=== PATIENT | male | born 1955 | race Caucasian/White ===

== ENCOUNTER 2017-06-25 00:08 | Inpatient (IN) ==
[2017-06-25] MEDS ORDERED: Ipratropium/Albuterol Neb 3 ML ONE (00:14)
[2017-06-25] MEDS ORDERED: Ipratropium/Albuterol Neb 3 ML IH ONE (00:15)
[2017-06-25] MEDS ORDERED: methylPREDNISolone 125 MG/2 ML VIAL IVP ONE (00:25)
--- NOTE | 2017-06-25 00:26 | Emergency Department Note ---
Disposition Clinical Impression: Acute exacerbation of chronic obstructive airways disease, HCAP (healthcare- associated pneumonia) Disposition: Admitted As Inpatient Condition: Fair Time of Disposition: 03:19 SOB HPI - General Chief Complaint: ED Shortness of Breath/Dyspnea Stated Complaint: Branden AMS Time Seen by Provider: 06/25/17 00:13 Source: patient, EMS Mode of arrival: EMS Limitations: altered mental status Nursing Notes Reviewed: Yes Vital Signs Reviewed: Yes - History of Present Illness 61-year-old male presents to the emergency department via EMS for difficulty in breathing and low oxygen saturations. Patient does have history of COPD he does have oxygen at home and he is chronically on. Family states that over the last 2 days he has had a difficult more difficult time breathing. He was recently discharged from the hospital approximately 2-3 weeks ago where he was in the ICU and on a ventilator due to a COPD exacerbation. He does have history of having an elevated CO2. They are unsure if he does have a CPAP machine at home. Patient has had a more difficult time breathing so his oxygen saturation saturations were down to 60%. EMS placed him on 15 L via nonrebreather and sats went up to 90% with that. But he was still having a difficult time breathing. They did give patient 100 mL of IV fluids and did not give him anything else. They have not noted any fevers or chills leading up to this or any other symptoms. He said he has no more altered lately where he is not as awake and alert as he normally is. He is able to follow commands. Patient otherwise having no complaints including no headaches, nausea, vomiting,, chills, chest pain, abdominal pain, pain with urination, change in bowel movement, pain or tingling going down the arms or legs or any generalized weakness. - Related Data Allergies Allergy/AdvReac Type Severity Reaction Status Date / Time No Known Allergies Allergy Verified 06/25/17 00:44 Review of Systems: 10 point review of systems done and negative unless otherwise stated in the history of present illness. All systems ED: reviewed and negative except as stated. Review of Systems: As Per HPI Past Medical History - Past Medical History Attestation: Yes The following information was validated with the patient. Source: patient Medical history: Reports: other - Social History Smoking Status: Current every day smoker Smokeless Tobacco Status: No Physical Exam - General Limitations: no limitations General appearance: alert, in no apparent distress - Head Head exam: atraumatic, normocephalic, normal inspection - Eye Eye exam: Present: normal appearance, PERRL, EOMI - ENT ENT exam: normal exam, normal oropharynx, mucous membranes moist - Neck Neck exam: Present: normal inspection, full ROM, trachea midline - Chest Chest inspection: Present: normal inspection, symmetric chest wall rise - Respiratory Respiratory exam: Present: respiratory distress (Mild), wheezes (Bilaterally more noticeable in the bases.), accessory muscle use, prolonged expiratory phase - Cardiovascular Cardiovascular exam: Present: regular rate, normal rhythm, normal heart sounds - Abdominal Exam Abdominal exam: Present: soft, Non-Tender. Absent: tenderness, distention, guarding, rebound, rigidity - Extremities Exam Extremities exam: Present: normal inspection, full ROM. Absent: tenderness, pedal edema - Expanded Lower Extremity Exam Neurovascular/Tendon exam: Present: normal capillary refill. Absent: pulse deficit, motor deficit, sensory deficit, tendon deficit - Back Exam Back exam: Present: normal inspection, full ROM. Absent: tenderness - Neurological Exam Neurological exam: Present: alert. Absent: oriented X3 (Patient unable to answer questions due to change in mental status but is able to follow commands.) , motor sensory deficit - Expanded Neurological Exam Coma Scale Eye Opening: Spontaneous Coma Scale Motor Response: Obeys Commands Coma Scale Verbal Response: Inappropriate Coma Scale Total: 13 - Skin Skin exam: Present: warm, dry, intact, normal color Course Course Narrative: 61-year-old male presents to the emergency department in respiratory distress he does have COPD history. We will immediately place patient on BiPAP. We will do normal sepsis workup including CBC, CMP, mag, phosphate, urinalysis with Deras catheter placed due to patient's altered mental status, CT head, chest x-ray, 2 sets of blood cultures, lactate, ABG. Will hold off and getting IV fluids at this time due to the unknown circumstance for his difficult in breathing at this might be due to fluid overload. We will also give patient site Medrol and triple DuoNeb treatment. Disposition most likely is going to be admission. Vital Signs Temperature 98.6 F 06/25/17 00:11 Pulse Rate 111 06/25/17 00:11 Respiratory Rate 26 06/25/17 00:11 Blood Pressure 107/60 06/25/17 00:11 O2 Sat by Pulse Oximetry 99 06/25/17 00:11 Temperature 99.1 F 06/25/17 00:36 Pulse Rate 83 06/25/17 03:22 Respiratory Rate 16 06/25/17 03:22 Blood Pressure 92/61 06/25/17 03:22 O2 Sat by Pulse Oximetry 93 06/25/17 03:22 Oxygen Delivery Oxygen Delivery Bipap Shortness of Breath/Dyspnea - MDM Narrative Medical decision making narrative: 61-year-old male presenting to the emergency departmentin respiratory distress. We did immediately place patient on a BiPAP machine. ABGs were ordered and he did have elevated CO2 and was acidotic. Due to this we continued patient to be on BiPAP we did talk about having patient intubated without that we are given a trial of BiPAP as long as his CO2 was normalizing we will continue with BiPAP. Patient was given Solu-Medrol he was recently admitted to the hospital chest x-ray showed possible pneumonia so we started him on age Giving Levaquin, Zosyn, vancomycin. We did do a BNP which it was slightly elevated but not quite his normal other thousand where was at 250 we decided not to treat this at this time. We did not give him IV fluids as patient does not history CHF we do not want to fluid overload him. Patient did have elevated potassium of 6.3 he had no EKG changes. We did give patient 40 mg IV Lasix did give him albuterol. Through duo nebs that also help lower the potassium. Also gave patient calcium gluconate to help stabilize the cardiac membrane. he patient first came in he had a hard time following commands. He did do much better after being on the BiPAP and the CO2 has been lowering. We felt that intubation was 90 at this time and he prior stands long time on BiPAP. I spoke with the hospitalist Dr. Kimball who agreed to accept the patient to the ICU. Patient is admitted in fair condition at this time. Chest X-Ray 06/25/17 00:14 IMPRESSION: Patchy airspace disease in the lower lungs bilaterally, with increased central opacity. Correlate with any clinical evidence of pulmonary edema. Multifocal pneumonia would be considered as well. D/ / Saqib Rajan MD / Saqib Rajan MD Interpreting Provider: Saqib Rajan MD Head CT 06/25/17 00:28 IMPRESSION: No acute intracranial abnormality. D/ / William Tate MD / William Tate MD Interpreting Provider: William Tate MD - Medical Records Medical records reviewed: Yes I reviewed the patient's medical records. - Lab Data Lab results reviewed: Yes I reviewed the patient's lab results. Result diagrams: 06/25/17 00:15 06/25/17 01:30 Lab Results 06/25/17 06/25/17 06/25/17 Range/Units 00:15 00:15 00:15 WBC 14.8 H (4.3-11.1) K/mcL RBC 4.63 (4.19-5.50) M/mcL Hgb 13.4 (12.9-16.9) g/dL Hct 42.4 (37.5-50.1) % MCV 91.6 (83.0-100.0) fL MCH 28.9 (28.0-33.3) pg MCHC 31.6 (31.6-35.5) g/dL RDW 15.9 H (11.5-14.5) % Plt Count 175 (140-400) K/mcL MPV 12.2 (9.4-12.4) fL Immature Gran % 1.4 (0-4) % Seg Neutrophils % 74.6 % Lymphocytes % 13.0 % Monocytes % 5.7 % Eosinophils % 4.3 % Basophils % 1.0 % Neutrophils # 11.0 H (1.6-8.9) K/mcL Lymphocytes # 1.9 (0.6-4.6) K/mcL Monocytes # 0.8 (0.0-1.3) K/mcL Eosinophils # 0.6 (0.0-0.6) K/mcL Basophils # 0.2 (0.0-0.2) K/mcL Nucleated RBCs/100 WBC 0.1 H (0) /100 WBC PT 10.6 (9.4-12.1) Seconds INR 1.0 APTT 32.4 (26.0-36.0) Seconds Sample Site ABG pH (7.32-7.45) pH Units ABG pCO2 (35-45) mmHg ABG pO2 (85-104) mmHg ABG HCO3 (21-27) mEq/L ABG Total CO2 (20-26) mEq/L ABG O2 Saturation (95-98) % ABG Base Excess (-2 to 3) mEq/L Maycol Test Respiration Rate O2 Delivery Device Inspired O2 (1-15=lpm [id number]=%) Tidal Volume cc Sodium 134 L (136-145) mEq/L Potassium 6.1 H (3.5-5.1) mEq/L Chloride 99 (98-107) mEq/L Carbon Dioxide 31 H (23-29) mEq/L BUN 24 H (8-23) mg/dL Creatinine 1.11 (0.70-1.30) mg/dL Est GFR ( Amer) > 60 (> 60) Est GFR (Non-Af Amer) > 60 (> 60) BUN/Creatinine Ratio 22 (6-26) Glucose 184 H (70-105) mg/dL Calculated Osmolality 287 (280-300) Lactic Acid (0.5-2.2) mmol/L Calcium 8.7 (8.6-10.3) mg/dL Phosphorus 4.7 H (2.7-4.5) mg/dL Magnesium 1.9 (1.6-2.6) mg/dL Total Bilirubin 0.4 (0.3-1.0) mg/dL Direct Bilirubin 0.2 (0.0-0.2) mg/dL Indirect Bilirubin 0.2 (0.0-1.2) mg/dL AST 18 (13-39) Units/L ALT 13 (7-52) Units/L Alkaline Phosphatase 94 (34-104) Units/L Troponin I 0.03 (< 0.04) ng/mL B-Natriuretic Peptide (Less than 100) pg/mL Serum Total Protein 6.7 (6.4-8.9) g/dL Albumin 3.6 (3.5-5.7) g/dL Globulin 3.1 (2.4-3.5) g/dL Albumin/Globulin Ratio 1.2 (1.1-2.2) Urine Color (Yellow) Urine Clarity (Clear) Urine pH (5.0-8.0) pH Units Ur Specific [place] (1.010-1.025) Urine Protein (Neg-Trace) mg/dL Urine Glucose (UA) (Normal) mg/dL Urine Ketones (Negative) mg/dL Urine Blood (Negative) Urine Nitrite (Negative) Urine Bilirubin (Negative) Urine Urobilinogen (Normal) mg/dL Ur Leukocyte Esterase (Negative) Urine Microscopic RBC (0-3) per hpf Urine Microscopic WBC (0-3) per hpf Ur Squamous Epith Cells (None-Few) per lpf Urine Bacteria (None-Few) per hpf Hyaline Casts (None-Few) per lpf Ur Culture Indicated? (NO) 06/25/17 06/25/17 06/25/17 Range/Units 00:15 00:32 00:41 WBC (4.3-11.1) K/mcL RBC (4.19-5.50) M/mcL Hgb (12.9-16.9) g/dL Hct (37.5-50.1) % MCV (83.0-100.0) fL MCH (28.0-33.3) pg MCHC (31.6-35.5) g/dL RDW (11.5-14.5) % Plt Count (140-400) K/mcL MPV (9.4-12.4) fL Immature Gran % (0-4) % Seg Neutrophils % % Lymphocytes % % Monocytes % % Eosinophils % % Basophils % % Neutrophils # (1.6-8.9) K/mcL Lymphocytes # (0.6-4.6) K/mcL Monocytes # (0.0-1.3) K/mcL Eosinophils # (0.0-0.6) K/mcL Basophils # (0.0-0.2) K/mcL Nucleated RBCs/100 WBC (0) /100 WBC PT (9.4-12.1) Seconds INR APTT (26.0-36.0) Seconds Sample Site L Radial ABG pH 7.19 L* (7.32-7.45) pH Units ABG pCO2 99 H* (35-45) mmHg ABG pO2 408 H (85-104) mmHg ABG HCO3 37 H (21-27) mEq/L ABG Total CO2 40 H (20-26) mEq/L ABG O2 Saturation 100 H (95-98) % ABG Base Excess 5 H (-2 to 3) mEq/L Maycol Test N/A Respiration Rate O2 Delivery Device BiPAP Inspired O2 100.0 (1-15=lpm [id number]=%) Tidal Volume cc Sodium (136-145) mEq/L Potassium (3.5-5.1) mEq/L Chloride (98-107) mEq/L Carbon Dioxide (23-29) mEq/L BUN (8-23) mg/dL Creatinine (0.70-1.30) mg/dL Est GFR ( Amer) (> 60) Est GFR (Non-Af Amer) (> 60) BUN/Creatinine Ratio (6-26) Glucose (70-105) mg/dL Calculated Osmolality (280-300) Lactic Acid 1.2 (0.5-2.2) mmol/L Calcium (8.6-10.3) mg/dL Phosphorus (2.7-4.5) mg/dL Magnesium (1.6-2.6) mg/dL Total Bilirubin (0.3-1.0) mg/dL Direct Bilirubin (0.0-0.2) mg/dL Indirect Bilirubin (0.0-1.2) mg/dL AST (13-39) Units/L ALT (7-52) Units/L Alkaline Phosphatase (34-104) Units/L Troponin I (< 0.04) ng/mL B-Natriuretic Peptide (Less than 100) pg/mL Serum Total Protein (6.4-8.9) g/dL Albumin (3.5-5.7) g/dL Globulin (2.4-3.5) g/dL Albumin/Globulin Ratio (1.1-2.2) Urine Color Yellow (Yellow) Urine Clarity Clear (Clear) Urine pH 6.0 (5.0-8.0) pH Units Ur Specific [place] 1.024 (1.010-1.025) Urine Protein Trace (Neg-Trace) mg/dL Urine Glucose (UA) Normal (Normal) mg/dL Urine Ketones Negative (Negative) mg/dL Urine Blood Negative (Negative) Urine Nitrite Negative (Negative) Urine Bilirubin Negative (Negative) Urine Urobilinogen Normal (Normal) mg/dL Ur Leukocyte Esterase Negative (Negative) Urine Microscopic RBC 0-3 (0-3) per hpf Urine Microscopic WBC 0-3 (0-3) per hpf Ur Squamous Epith Cells Few (None-Few) per lpf Urine Bacteria None Seen (None-Few) per hpf Hyaline Casts None Seen (None-Few) per lpf Ur Culture Indicated? NO (NO) 06/25/17 06/25/17 06/25/17 Range/Units 01:13 01:26 01:30 WBC (4.3-11.1) K/mcL RBC (4.19-5.50) M/mcL Hgb (12.9-16.9) g/dL Hct (37.5-50.1) % MCV (83.0-100.0) fL MCH (28.0-33.3) pg MCHC (31.6-35.5) g/dL RDW (11.5-14.5) % Plt Count (140-400) K/mcL MPV (9.4-12.4) fL Immature Gran % (0-4) % Seg Neutrophils % % Lymphocytes % % Monocytes % % Eosinophils % % Basophils % % Neutrophils # (1.6-8.9) K/mcL Lymphocytes # (0.6-4.6) K/mcL Monocytes # (0.0-1.3) K/mcL Eosinophils # (0.0-0.6) K/mcL Basophils # (0.0-0.2) K/mcL Nucleated RBCs/100 WBC (0) /100 WBC PT (9.4-12.1) Seconds INR APTT (26.0-36.0) Seconds Sample Site L Radial ABG pH 7.20 L* (7.32-7.45) pH Units ABG pCO2 94 H* (35-45) mmHg ABG pO2 116 H D (85-104) mmHg ABG HCO3 37 H (21-27) mEq/L ABG Total CO2 39 H (20-26) mEq/L ABG O2 Saturation 97 (95-98) % ABG Base Excess 5 H (-2 to 3) mEq/L Maycol Test N/A Respiration Rate O2 Delivery Device BiPAP Inspired O2 60.0 (1-15=lpm [id number]=%) Tidal Volume cc Sodium (136-145) mEq/L Potassium 6.3 H (3.5-5.1) mEq/L Chloride (98-107) mEq/L Carbon Dioxide (23-29) mEq/L BUN (8-23) mg/dL Creatinine (0.70-1.30) mg/dL Est GFR ( Amer) (> 60) Est GFR (Non-Af Amer) (> 60) BUN/Creatinine Ratio (6-26) Glucose (70-105) mg/dL Calculated Osmolality (280-300) Lactic Acid (0.5-2.2) mmol/L Calcium (8.6-10.3) mg/dL Phosphorus (2.7-4.5) mg/dL Magnesium (1.6-2.6) mg/dL Total Bilirubin (0.3-1.0) mg/dL Direct Bilirubin (0.0-0.2) mg/dL Indirect Bilirubin (0.0-1.2) mg/dL AST (13-39) Units/L ALT (7-52) Units/L Alkaline Phosphatase (34-104) Units/L Troponin I (< 0.04) ng/mL B-Natriuretic Peptide 258 H (Less than 100) pg/mL Serum Total Protein (6.4-8.9) g/dL Albumin (3.5-5.7) g/dL Globulin (2.4-3.5) g/dL Albumin/Globulin Ratio (1.1-2.2) Urine Color (Yellow) Urine Clarity (Clear) Urine pH (5.0-8.0) pH Units Ur Specific [place] (1.010-1.025) Urine Protein (Neg-Trace) mg/dL Urine Glucose (UA) (Normal) mg/dL Urine Ketones (Negative) mg/dL Urine Blood (Negative) Urine Nitrite (Negative) Urine Bilirubin (Negative) Urine Urobilinogen (Normal) mg/dL Ur Leukocyte Esterase (Negative) Urine Microscopic RBC (0-3) per hpf Urine Microscopic WBC (0-3) per hpf Ur Squamous Epith Cells (None-Few) per lpf Urine Bacteria (None-Few) per hpf Hyaline Casts (None-Few) per lpf Ur Culture Indicated? (NO) 06/25/17 Range/Units 02:40 WBC (4.3-11.1) K/mcL RBC (4.19-5.50) M/mcL Hgb (12.9-16.9) g/dL Hct (37.5-50.1) % MCV (83.0-100.0) fL MCH (28.0-33.3) pg MCHC (31.6-35.5) g/dL RDW (11.5-14.5) % Plt Count (140-400) K/mcL MPV (9.4-12.4) fL Immature Gran % (0-4) % Seg Neutrophils % % Lymphocytes % % Monocytes % % Eosinophils % % Basophils % % Neutrophils # (1.6-8.9) K/mcL Lymphocytes # (0.6-4.6) K/mcL Monocytes # (0.0-1.3) K/mcL Eosinophils # (0.0-0.6) K/mcL Basophils # (0.0-0.2) K/mcL Nucleated RBCs/100 WBC (0) /100 WBC PT (9.4-12.1) Seconds INR APTT (26.0-36.0) Seconds Sample Site L Radial ABG pH 7.21 L (7.32-7.45) pH Units ABG pCO2 86 H* (35-45) mmHg ABG pO2 67 L D (85-104) mmHg ABG HCO3 34 H (21-27) mEq/L ABG Total CO2 37 H (20-26) mEq/L ABG O2 Saturation 87 L (95-98) % ABG Base Excess 3 (-2 to 3) mEq/L Maycol Test N/A Respiration Rate 20 O2 Delivery Device BiPAP Inspired O2 35.0 (1-15=lpm [id number]=%) Tidal Volume 600 cc Sodium (136-145) mEq/L Potassium (3.5-5.1) mEq/L Chloride (98-107) mEq/L Carbon Dioxide (23-29) mEq/L BUN (8-23) mg/dL Creatinine (0.70-1.30) mg/dL Est GFR ( Amer) (> 60) Est GFR (Non-Af Amer) (> 60) BUN/Creatinine Ratio (6-26) Glucose (70-105) mg/dL Calculated Osmolality (280-300) Lactic Acid (0.5-2.2) mmol/L Calcium (8.6-10.3) mg/dL Phosphorus (2.7-4.5) mg/dL Magnesium (1.6-2.6) mg/dL Total Bilirubin (0.3-1.0) mg/dL Direct Bilirubin (0.0-0.2) mg/dL Indirect Bilirubin (0.0-1.2) mg/dL AST (13-39) Units/L ALT (7-52) Units/L Alkaline Phosphatase (34-104) Units/L Troponin I (< 0.04) ng/mL B-Natriuretic Peptide (Less than 100) pg/mL Serum Total Protein (6.4-8.9) g/dL Albumin (3.5-5.7) g/dL Globulin (2.4-3.5) g/dL Albumin/Globulin Ratio (1.1-2.2) Urine Color (Yellow) Urine Clarity (Clear) Urine pH (5.0-8.0) pH Units Ur Specific [place] (1.010-1.025) Urine Protein (Neg-Trace) mg/dL Urine Glucose (UA) (Normal) mg/dL Urine Ketones (Negative) mg/dL Urine Blood (Negative) Urine Nitrite (Negative) Urine Bilirubin (Negative) Urine Urobilinogen (Normal) mg/dL Ur Leukocyte Esterase (Negative) Urine Microscopic RBC (0-3) per hpf Urine Microscopic WBC (0-3) per hpf Ur Squamous Epith Cells (None-Few) per lpf Urine Bacteria (None-Few) per hpf Hyaline Casts (None-Few) per lpf Ur Culture Indicated? (NO) - Radiology Data Radiology results reviewed: Yes I reviewed the patient's radiology results. - EKG Data EKG attestation: Yes I reviewed and interpreted this EKG. EKG results narrative: EKG done at 00 27 reviewed by myself and attending shows sinus rhythm at a rate of 97, NE interval 175, QRS 102, QTC 395 with a normal axis. No acute ST changes no acute T-wave changes no other signs of ischemia. No signs of hypertrophy, heart strain, heart block. No signs of WPW/syndrome. EKG unchanged when compared with old one done 04/27/17 Critical Care Time Critical Care Time: Yes Total Critical Care Time: 45 Attestation: Critical care performed: Time is exclusive of separately billable procedures. Time includes: direct patient care, patient reassessment, coordination of patient care, interpretation of data (laboratory data, radiology data, and respiratory data), review of patient's medical records, medical consultation and documentation of patient care. Procedures included in critical care time: Procedures excluded from critical care time: Attestation Statement - Attestation Attestation: I, Saul Virgen DO, examined this patient [id number] and my medical decision-making was reviewed with Dr. Aron Villalobos, Resident Physician. I agree with the documented findings, disposition and treatment plan as described except to the extent set forth below. Please see my progress notes for details. 61-year-old male presents to the emergency room by EMS for evaluation. Patient was found at home to be confused and altered. Patient was just discharged from the hospital less than 2 weeks ago for similar issues. Patient was admitted for hypoxia. On presentation, EMS found the patient's pulse ox to be 60% on his oxygen supplementation at home. Patient was significantly confused. Follow commands. No visible signs of trauma or injury were noted. EMS. Patient placed on nonrebreather and his pulse ox did come back up to 92%. Patient arrived to the emergency room with nonrebreather mask in place. On physical exam patient does have diminished breast sounds with tightness noted bilaterally. Mucosa is patent. Mucous membranes are dry from what appears to be mouth breathing. Heart is regular but tachycardic. Abdomen is soft nontender nondistended with no guarding no rigidity on initial palpation of the abdomen. Mild pitting edema noted bilaterally. Patient does follow commands and moves his extremities appropriately. Patient is concerning for hypercapnic respiratory failure at this point. BiPAP was applied. Initial ABG showed respiratory acidemia with CO2 retention. BiPAP will be applied and continuation of treatment will be established. CT imaging of the head chest x- ray EKG labs including troponin and BNP electrolytes will be added on a resulted. Urinalysis will be collected looking for any other etiology causing the presenting symptoms. After acquired pneumonia will be treated if necessary based on chest x-ray. Patient otherwise clinically stable at this point despite having confusion most likely secondary to hypoxia and CO2 retention. Disposition will most likely be admission. 45 minutes of critical care will be applied to this patient's treatment course. See detailed documentation of physical exam, medical intervention, medical decision-making, disposition in the resident physician's note. 0245 Patient found to have a potassium of 6.3 on repeat here in the emergency room. Patient's ventilation status is slowly resolving. He is waking up and following commands more appropriately at this point. CT of the head chest x- ray were reviewed in detail patient is found to have pneumonia. Patient was treated for healthcare acquired pneumonia. Patient will have medical intervention provider for elevated potassium. His EKG is completely normal this time and no signs of interval abnormality or peaked T waves. Patient will be provided with calcium, Lasix to help diurese the potassium. Patient will not be given Kayexalate at this point secondary to concern for aspiration because of his mental status. Albuterol as IV given for treatment. Patient does not require insulin and dextrose considering is a stable presentation a normal EKG. Disposition will be admission to the hospital patient treatment course. Patient is otherwise clinically stable. Will continue to monitor admission process is established. Patient is having clinical resolution of what appears to be a hypercapnic respiratory related issue. 0345 Patient is otherwise clinically stable. Mentation is slowly getting better. ABGs are correcting with small amounts of interval changes over 2-1/2 our time frame in the emergency department. Repeat potassium was ordered prior the patient going up to the floor. If the potassium does not have some clinical resolution insulin and dextrose will be ordered. Patient may need intubation during this treatment course in the hospital but at this point we tried to prevent prolonged ventilator requirements by use positive pressure ventilation here in the emergency room. Patient is otherwise clinically stable despite having potential for critical illness.
[2017-06-25 00:29] LABS: Basophils # 0.2 K/mcL (0.0-0.2); Eosinophils # 0.6 K/mcL (0.0-0.6); Eosinophils % 4.3 %; Hematocrit 42.4 % (37.5-50.1); Hemoglobin 13.4 g/dL (12.9-16.9); Immature Granulocytes % 1.4 % (0-4); Lymphocytes # 1.9 K/mcL (0.6-4.6); Mean Corpuscular HGB Conc 31.6 g/dL (31.6-35.5); Mean Corpuscular Hemoglobin 28.9 pg (28.0-33.3); Mean Corpuscular Volume 91.6 fL (83.0-100.0); Mean Platelet Volume 12.2 fL (9.4-12.4); Monocytes # 0.8 K/mcL (0.0-1.3); Monocytes % 5.7 %; Nucleated Red Blood Cells 0.1 /100 WBC (0); Platelet Count 175 K/mcL (140-400); Red Blood Count 4.63 M/mcL (4.19-5.50); Red Cell Distribution Width 15.9 % (11.5-14.5); Segmented Neutrophils % 74.6 %
[2017-06-25 00:36] LABS: Prothrombin Time 10.6 Seconds (9.4-12.1)
[2017-06-25 00:37] LABS: ABG Base Excess 5 mEq/L (-2 to 3); ABG HCO3 37 mEq/L (21-27); ABG Oxygen Saturation 100 % (95-98); ABG PCO2 99 mmHg (35-45); ABG PH 7.19 pH Units (7.32-7.45); ABG PO2 408 mmHg (85-104); ABG TCO2 40 mEq/L (20-26)
[2017-06-25 00:39] LABS: Activated Partial Thrombo Time 32.4 Seconds (26.0-36.0)
[2017-06-25 00:50] LABS: Alanine Aminotransferase 13 Units/L (7-52); Albumin 3.6 g/dL (3.5-5.7); Albumin/Globulin Ratio 1.2 (1.1-2.2); Alkaline Phosphatase 94 Units/L (34-104); Aspartate Amino Transferase 18 Units/L (13-39); BUN/Creatinine Ratio 22 (6-26); Bilirubin,Direct 0.2 mg/dL (0.0-0.2); Bilirubin,Indirect 0.2 mg/dL (0.0-1.2); Bilirubin,Total 0.4 mg/dL (0.3-1.0); Blood Urea Nitrogen 24 mg/dL (8-23); Calcium 8.7 mg/dL (8.6-10.3); Carbon Dioxide 31 mEq/L (23-29); Chloride 99 mEq/L (98-107); Globulin 3.1 g/dL (2.4-3.5); Glucose 184 mg/dL (70-105); Magnesium 1.9 mg/dL (1.6-2.6); Osmolality,Calculated 287 (280-300); Phosphorous 4.7 mg/dL (2.7-4.5); Potassium 6.1 mEq/L (3.5-5.1); Sodium 134 mEq/L (136-145); Total Protein 6.7 g/dL (6.4-8.9); Troponin I 0.03 ng/mL (< 0.04); eGFR For African Americans > 60 (> 60); eGFR For Non-African Americans > 60 (> 60)
[2017-06-25 00:55] LABS: Bilirubin,Urine Negative (Negative); Blood,Urine Negative (Negative); Clarity,Urine Clear (Clear); Color,Urine Yellow (Yellow); Glucose,Urine (UA) Normal (Normal); Ketones,Urine Negative (Negative); Leukocyte Esterase,Urine Negative (Negative); Nitrite,Urine Negative (Negative); Protein,Urine Trace mg/dL (Neg-Trace); Specific Gravity,Urine 1.024 (1.010-1.025); Urobilinogen,Urine Normal (Normal)
[2017-06-25 00:58] LABS: Bacteria,Urine None Seen per hpf (None-Few); Hyaline Casts,Urine None Seen per lpf (None-Few); RBC,Urine 0-3 per hpf (0-3); Squamous Epithelial Cell,Urine Few per lpf (None-Few); WBC,Urine 0-3 per hpf (0-3)
[2017-06-25] MEDS ORDERED: Levofloxacin 750 MG/150 ML 750 MG/150 ML BAG IVPB ONE (01:09)
[2017-06-25] MEDS ORDERED: Piperacillin/Tazobactam 3.375 GM in 0.9 % Sodium Chloride Mini Bag 100 ML IVPB ONE (01:09)
[2017-06-25 01:43] LABS: ABG Base Excess 5 mEq/L (-2 to 3); ABG HCO3 37 mEq/L (21-27); ABG Oxygen Saturation 97 % (95-98); ABG PCO2 94 mmHg (35-45); ABG PO2 116 mmHg (85-104); ABG TCO2 39 mEq/L (20-26)
[2017-06-25] MEDS ORDERED: Furosemide 40 MG/4 ML VIAL IVP ONE (02:51)
[2017-06-25 02:54] LABS: ABG Base Excess 3 mEq/L (-2 to 3); ABG HCO3 34 mEq/L (21-27); ABG Oxygen Saturation 87 % (95-98); ABG PCO2 86 mmHg (35-45); ABG PH 7.21 pH Units (7.32-7.45); ABG PO2 67 mmHg (85-104); ABG TCO2 37 mEq/L (20-26); Blood Gas Respiration Rate 20; Blood Gas VT 600 cc
[2017-06-25] MEDS ORDERED: Ipratropium/Albuterol Neb 3 ML IH PRN (03:23)
[2017-06-25] MEDS ORDERED: *HR* Dextrose 50 % in Water (Syg) 50 ML SYRINGE IVP ONE (03:23)
[2017-06-25] MEDS ORDERED: Insulin Human Regular 10 UNIT in 0.9 % Sodium Chloride 10 ML IV ONE (03:23)
[2017-06-25] MEDS ORDERED: D5% in Water 1,000 ML IVC PRN (03:26)
[2017-06-25] MEDS ORDERED: Dextrose Gel 15 GM/37.5 ML TUBE PO PRN ×2 (03:26)
[2017-06-25] MEDS ORDERED: *HR* Dextrose 50 % in Water (Syg) 50 ML SYRINGE IVP PRN (03:26)
[2017-06-25] MEDS ORDERED: 0.9 % Sodium Chloride 1,000 ML IVC SCH ×3 (03:30→08:15)
--- NOTE | 2017-06-25 03:40 | Internal Med History&Physical ---
<Quincy Fisher - Last Filed: 06/25/17 04:44> Date of Encounter: 06/25/17 Time of Encounter: 03:40 Assessment and Plan (1) Acute on chronic respiratory failure with hypoxia and hypercapnia Current visit: Yes Status: Acute history of COPD on 2L home supplementation ABG reveals respiratory acidosis with hypercapnia and hypoxia likely secondary to COPD exacerbation and possible healthcare associated pneumonia review of his chest x-ray 06/25 shows findings concerning for possible pulmonary edema versus multifocal pneumonia patient normally takes Lasix 20 mg daily, will continue with diuresis will treat his COPD exacerbation with scheduled DuoNeb and steroids given his recent hospitalization will cover for healthcare associated pneumonia , patient was given Vancomycin, Zosyn, Levaquin in the emergency department - will continue with broad-spectrum triple antibiotics to also cover for Pseudomonas - will check urine antigen for Legionella, Strep, and Mycoplasma continue noninvasive ventilation as the patient is slowly correcting, he is following commands and has a patent airway - if no improvement or worsening respiratory status may consider invasive ventilation will recheck ABG in 2 hours to assess his oxygenation ventilation (2) Acute exacerbation of chronic obstructive airways disease Current visit: Yes Status: Acute history of COPD, 2L home oxygen supplementation at home will treat for COPD exacerbation with Solumedrol and scheduled Duonebs BiPAP to assist with ventilation management per plan above (3) HCAP (healthcare-associated pneumonia) Current visit: Yes Status: Acute review of his chest x-ray shows concern for vascular congestion versus multifocal pneumonia patient was recently hospitalized 2 months ago for similar presentation at this time will treat for possible healthcare associated pneumonia management per plan above Chest X-Ray 06/25/17 00:14 IMPRESSION: Patchy airspace disease in the lower lungs bilaterally, with increased central opacity. Correlate with any clinical evidence of pulmonary edema. Multifocal pneumonia would be considered as well. D/ / Saqib Rajan MD / Saqib Rajan MD Interpreting Provider: Saqib Rajan MD (4) Sepsis Current visit: Yes Status: Acute patient presented afebrile, tachycardic, tachypneic with leukocytosis of 14.3 patient is not hypotensive and does not require fluid resuscitation suspected source is respiratory urinalysis is not consistent with infection patient is not have any open skin lesions to be concern for skin infection lactate 1.2 Deras catheter placed for strict I/Os - he reportedly has history of urinary retention, immediately he had 1500 cc of urine output Qualifiers: Sepsis type: sepsis due to unspecified organism Qualified Code(s): A41.9 - Sepsis, unspecified organism (5) Hyperkalemia Current visit: Yes Status: Acute K+ 6.3 no EKG changes seen, no hyperacute peaked T waves, QRS 102, no ST changes patient was given Calcium Gluconate in the ED as well as Furosemide and Albuterol will continue Duonebs for hyperkalemia and his COPD will add Bicarbonate and Kayexalate to correct potassium recheck potassium and monitor resolution no evidence of renal dysfunction, SCr 1.11 (6) Essential hypertension Current visit: Yes Status: Chronic awaiting home medication list confirmation review of medical records on eCW, takes Hyzaar 50-12.5 mg daily (7) Type 2 diabetes mellitus Current visit: Yes Status: Chronic Patient will be placed on LOW dose insulin sliding scale continue to monitor blood glucose Qualifiers: Diabetes mellitus buttermaker insulin use: without assisted use Diabetes mellitus complication status: with unspecified complications Qualified Code(s) : E11.8 - Type 2 diabetes mellitus with unspecified complications (8) GERD (gastroesophageal reflux disease) Current visit: Yes Status: Acute patient has history of GERD review of eCW, he takes Protonix at home given his respiratory status will keep NPO and place on IV Protonix 40 mg for GI prophylaxis Qualifiers: Esophagitis presence: esophagitis presence not specified Qualified Code(s) : K21.9 - Gastro-esophageal reflux disease without esophagitis (9) Anxiety Current visit: Yes Status: Acute history of anxiety review of eCW, takes Xanax 1mg TID and Duloxetine HCl 60mg daily monitor for any withdrawal may add Ativan PRN (10) DVT prophylaxis Current visit: Yes Status: Acute Heparin SubQ Internal Medicine - H&P: HPI Chief complaint: difficulty in breathing, hypoxia Admitted From: Emergency Dept History of present illness: Mr. Glasgow is a 61 year old male with a history of COPD on 2 L home oxygen supplementation, type II [id number] diabetes mellitus, hypertension who presented to [facility] emergency department for difficulty breathing and hypoxia. Patients unable to provide further history. History was obtained through emergency department documentation. Reportedly over the past 48 hours patient has been having increased difficulty in breathing. Today is breathing has gotten worse. There is questions on if he has a BiPAP at home for his breathing. EMS was called to the home by / toolman where he was found hypoxic 60% with pulse oximetry. He was confused at that time but able to follow commands. No obvious signs of trauma noted. He was placed on the non-rebreather in on arrival to the emergency department placed on BiPAP. Initial arterial blood gas showed respiratory acidosis with hypercapnia 99. CT of the head was unremarkable for any intracranial abnormality. Chest x-ray revealed pulmonary congestion and possible multifocal pneumonia. Patient was empirically treated with broad-spectrum antibiotics vancomycin, Zosyn and Levaquin given his recent hospitalization. Recent hospitalization secondary to respiratory failure in April where he was admitted to intensive care unit at [facility] secondary to COPD exacerbation. His BNP was 258. Review of his laboratory results shows a leukocytosis 14.8. He also had a hyperkalemia 6.1. EKG did not reveal any ischemic changes, PT waves or prolonged QRS interval. He was given calcium as well as albuterol to facilitate influx of potassium. It was elected not to give him any dextrose or insulin. A repeat of his potassium 6.3 and then 6.1. At this time he would be admitted to the intensive care unit to monitor his respiratory status. He is currently tolerating the BiPAP and has gradual improvement of his acidosis and CO2. Past Med Surg Social Fam HX - Past Medical History Source: old records reviewed, nursing notes reviewed Medical history: COPD, other - Social History Smoking Status: Current every day smoker Smokeless Tobacco Status: No Alcohol use: unknown Drug use: unknown Internal Medicine - H&P: Meds 3 Allergy/AdvReac Type Severity Reaction Status Date / Time No Known Allergies Allergy Verified 06/25/17 00:44 ROS unobtainable: due to mental status All Systems PM: A 10-system review of systems was performed and is negative for pertinent findings except as documented above in the HPI. - Constitutional Vitals: Temp Pulse Resp BP Pulse Ox 99.1 F 83 16 92/61 93 06/25/17 00:36 06/25/17 03:22 06/25/17 03:22 06/25/17 03:22 06/25/17 03:22 General appearance: Present: cooperative, mild distress, obese - Head Head exam: Present: atraumatic, normal inspection - Eye Eye exam: Present: EOMI, normal appearance, PERRL. Absent: nystagmus - ENT ENT exam: Present: mucous membranes dry, normal oropharynx - Neck Neck exam general surgery: Present: full ROM, normal inspection, supple, trachea midline - Respiratory Respiratory exam: Present: accessory muscle use, decreased breath sounds, prolonged expiratory phase, respiratory distress (Mild). Absent: wheezes - Cardiovascular Cardiovascular exam: Present: RRR, +S1, +S2. Absent: diastolic murmur, JVD, systolic murmur - GI/Abdominal GI/Abdominal exam: Present: hypoactive bowel sounds, soft, no peritoneal signs. Absent: distended, guarding, mass, tenderness - Extremities Exam Extremities exam: Present: full ROM, radial pulses palpable and symmetrical. Absent: calf tenderness, cyanotic, pedal edema - Back Exam Back exam: Absent: rash noted Additional comments: slight erythema to sacrum/coccyx, no skin breakdown - Neurological Exam Neurological exam: Present: alert, no focal deficits, strengths equal and symetr throughout. Absent: motor sensory deficit, facial droop, speech deficit - Expanded Neurological Exam Neurological exam expanded: Present: protecting the airway Neuro motor strength exam: LUE: 5, RUE: 5, LLE: 5, RLE: 5 Coma Scale Eye Opening: Spontaneous Coma Scale Motor Response: Obeys Commands Coma Scale Verbal Response: Inappropriate Coma Scale Total: 13 - Psychiatric Psychiatric exam: Present: normal affect, normal mood - Skin Skin exam: Present: dry, erythema (buttock/sacrum), rash (ashen rash to lower extremity, history of HSP). Absent: abrasion, cyanosis, excoriation, mottled, petechiae Internal Med - H&P Results - Labs CBC & Chem 7: 06/25/17 03:45 06/25/17 03:45 - ABG Interpretation Interpretation: ABG interpreted by me Interpretation: respiratory acidosis - EKG Data -: EKG Interpreted by Myself EKG shows normal: sinus rhythm, axis (Normal), QRS complexes (102), ST-T waves ( No elevation or depression) Rate: normal - EKG Data Prior EKG available for review: yes When compared to previous EKG: there is no significant change Interpretation IM: normal EKG - Impressions Normal sinus rhythm 97 beats per minute with normal axis, good R wave progression, QRS interval 102, no ST elevation or depression, no peak T waves - Diagnostic Studies Chest x-ray Status: image reviewed by me Additional comments: Chest X-Ray 06/25/17 00:14 IMPRESSION: Patchy airspace disease in the lower lungs bilaterally, with increased central opacity. Correlate with any clinical evidence of pulmonary edema. Multifocal pneumonia would be considered as well. D/ / Saqib Rajan MD / Saqib Rajan MD Interpreting Provider: Saqib Rajan MD CT scan - head Status: image reviewed by me Additional comments: Head CT 06/25/17 00:28 IMPRESSION: No acute intracranial abnormality. D/ / William Tate MD / William Tate MD Interpreting Provider: William Tate MD <Jake Pereyra - Last Filed: 06/25/17 04:51> Date of Encounter: 06/25/17 Internal Medicine - H&P: HPI History of present illness: Mr. Glasgow is a 61 year old male All Systems PM: A 10-system review of systems was performed and is negative for pertinent findings except as documented above in the HPI. - Constitutional Vitals: Temp Pulse Resp BP Pulse Ox 99.1 F 83 26 92/61 96 06/25/17 00:36 06/25/17 03:22 06/25/17 04:01 06/25/17 04:01 06/25/17 04:01 Internal Med - H&P Results - Labs CBC & Chem 7: 06/25/17 03:45 06/25/17 03:45 Labs: Short CBC 06/25/17 Range/Units 03:45 WBC 13.8 H (4.3-11.1) K/mcL Hgb 13.3 (12.9-16.9) g/dL Hct 44.0 (37.5-50.1) % Plt Count 159 (140-400) K/mcL Neutrophils # 12.0 H (1.6-8.9) K/mcL [facility] 06/25/17 03:45 Sodium 135 L Potassium 6.1 H Chloride 100 Carbon Dioxide 31 H BUN 26 H Creatinine 1.15 Glucose 219 H Calcium 8.8 - Attending Attestation I examined this patient and my medical decision-making was reviewed with the Resident Physician. I agree with the documented findings, disposition and treatment plan as described except to the extent set forth below. 61-year-old male with COPD who presents with acute on chronic respiratory failure found to be hypoxic on site and was transferred via EMS. Patient was found to be in severe respiratory distress and was put on BiPAP. He was also found to be hyperkalemic with potassium greater than 6. Due to her resp distress he was unable to provide significant medical history. However on chart review he is noted to be oxygen dependent and recently had an exacerbation in April 2017 where he was intubated and subsequently transferred to [facility] due to lack of ICU beds locally. EKG personally reviewed with rate of 97, normal sinus rhythm General - in mild distress but able to follow simple commands Eyes - MEMO. Eye lids intact. No scleral icterus Neuro - No gross peripheral or central neuro deficits on inspection Heart - Sinus. RRR. S1 and S2 present. No added HS/murmurs appreciated. No elevated JVD appreciated. Lung - Adequate air entry b/l, No crackles/wheezes appreciated on BiPAP GI - Soft, non-tender. No hepatosplenomegaly/ascites. BS+ - No CVA/suprapubic tenderness or palpable bladder distension Skin -venous stasis changes. No rash/petechiae/ecchymosis. Warm extremities CT/CT head/brain wo con IMPRESSION: No acute intracranial abnormality. XR/XR chest 1V portable IMPRESSION: Patchy airspace disease in the lower lungs bilaterally, with increased central opacity. Correlate with any clinical evidence of pulmonary edema. Multifocal pneumonia would be considered as well. A/P COPD exacerbation Acute on chronic respiratory failure PNA - cefepime., vanc, azithro - duonebs, IV steroids - RVP, serologies pend - check ABG - consult pulm Hyperkalemia - insulin/dex, CaCI, rectal kayxelate, IV lasix with IV fluids - trend q6 K - tele, pulse ox DMII - ISS for now , adjust up as appriopriate
[2017-06-25] MEDS: Ipratropium/Albuterol Neb 3 ML IH SCH ×4 (04:00→22:20)
[2017-06-25] MEDS ORDERED: Vancomycin 0 MG in 0.9 % Sodium Chloride 250 ML IVPB SCH (04:00)
[2017-06-25 04:11] LABS: Basophils # 0.1 K/mcL (0.0-0.2); Basophils % 0.7 %; Eosinophils # 0.3 K/mcL (0.0-0.6); Eosinophils % 2.1 %; Hemoglobin 13.3 g/dL (12.9-16.9); Immature Granulocytes % 1.4 % (0-4); Mean Corpuscular HGB Conc 30.2 g/dL (31.6-35.5); Mean Corpuscular Hemoglobin 28.5 pg (28.0-33.3); Mean Corpuscular Volume 94.2 fL (83.0-100.0); Monocytes # 0.3 K/mcL (0.0-1.3); Monocytes % 1.8 %; Nucleated Red Blood Cells 0.1 /100 WBC (0); Platelet Count 159 K/mcL (140-400); Red Blood Count 4.67 M/mcL (4.19-5.50); Red Cell Distribution Width 15.9 % (11.5-14.5)
[2017-06-25 04:18] LABS: BUN/Creatinine Ratio 23 (6-26); Blood Urea Nitrogen 26 mg/dL (8-23); Calcium 8.8 mg/dL (8.6-10.3); Carbon Dioxide 31 mEq/L (23-29); Chloride 100 mEq/L (98-107); Glucose 219 mg/dL (70-105); Osmolality,Calculated 291 (280-300); Potassium 6.1 mEq/L (3.5-5.1); Sodium 135 mEq/L (136-145); eGFR For African Americans > 60 (> 60); eGFR For Non-African Americans > 60 (> 60)
[2017-06-25 05:19] LABS: ABG Base Excess 4 mEq/L (-2 to 3); ABG HCO3 36 mEq/L (21-27); ABG Oxygen Saturation 90 % (95-98); ABG PCO2 97 mmHg (35-45); ABG PH 7.17 pH Units (7.32-7.45); ABG PO2 77 mmHg (85-104); ABG TCO2 38 mEq/L (20-26)
[2017-06-25] MEDS: Insulin LISPRO 300 UNITS/3 ML VIAL SQ SCH ×3 (06:23→18:10)
[2017-06-25] MEDS: MethylPREDNISolone 40 MG/ML VIAL IVP SCH ×4 (06:26→23:32)
[2017-06-25] MEDS: *HR* Heparin 5,000 UNIT/ML VIAL SQ SCH ×3 (06:26→21:52)
[2017-06-25] MEDS: Cefepime HCl 2,000 MG in Water for inj. (sterile) 20 ML 20 ML IVPB SCH ×2 (06:26→17:28)
--- NOTE | 2017-06-25 06:33 | Event Note ---
Date of Encounter: 06/25/17 Time of Encounter: 06:12 Patient was reportedly more somnolent and difficult to arouse an hour after his arrival to the intensive care unit. I re-evaluated the patient and he did appear more difficult to arouse than prior exam. He was still maintaining good oxygen saturations 92%. He continued to tolerate the BiPAP and had improved lungs sounds, still diminished L > R. His AVAP setting were set at respiratory respirations are set at 20 and he is bringing and good title volumes. Arterial blood gas was drawn which showed some slight worsening of his acidosis 7.17 with the CO2 of 97 comparative to 7.21 and CO2 86. At this time the nighttime hospitalist physician Dr. Pereyra was called to bedside for emergent intubation. His blood pressure was also soft systolic 90s. It was noted that he has put out over 2 L of urine output. Immediately his maintenance IV fluids was administered wide open as a bolus and his systolic blood pressure immediately robinson up to 120. As we were positioning the patient for possible intubation he was more arousable. We raised the head of the bed to 30 and patient was following simple commands. We explained the situation to the patient stating that his breathing was worsening and that he may need endotracheal intubation. Patient at 1st was refusing the idea of intubation. Dr. Pereyra then informed him that if his breathing continue to worsen and if he refuses intubation that he may have respiratory arrest and possibly , he continues to shake his head "no " and refuse intubation. These statements were reiterated multiple times and at the end each time he was of mental capacity to understand by squeezing my hand on command. He later asked "how long he would be intubated?" and we answered that it is unknown. We brought the question of intubation again and at last he was agreeable. Given the improvement of his mental status we discussed giving him another chance with noninvasive ventilation which the patient was agreeable to the idea. Will plan for re-evaluation in 30 minutes. 0632 Patient has become more somnolent and difficult to arouse. Patient intubated for worsening respiratory status and airway protection due to waxing/waning mental status. RSI kit in the room, Etomidate and Rocuronium ordered for emergent endotracheal intubation. Please see procedure note for further details.
[2017-06-25] MEDS ORDERED: Lacri-Lube 3.5 GM TUBE BOTH EYES PRN (06:46)
--- NOTE | 2017-06-25 06:51 | Procedure Note ---
Date of procedure: 06/25/17 Pre-op diagnosis: respiratory failure Post-op diagnosis: same Procedure: endotracheal intubation Was there an maintenance assistant present: No Estimated blood loss (cc): 0 Specimen: none Condition: critical Disposition: ICU Procedures - Intubation Time out performed: Yes (emergent) sedative: Etomidate Mg Given: 30 paralytic: Rocuronium Mg Given: 100 Laryngoscope: Jeronimo ET Tube Size: 7.5 ET Tube Uncuffed: No Tube Secured Depth (cm): 23 Tube Secured Location: lips Tube Placement Confirmation: visualized tube passing through cords, equal breath sounds bilaterally, no breath sounds over epigastrium, confirmation by capnometry Patient Tolerated Procedure: well, no complications Intubation Complications: none
[2017-06-25] MEDS ORDERED: Dexmedetomidine HCl 400 MCG/100 ML MLS IVC SCH (07:00)
[2017-06-25] MEDS ORDERED: FentaNYL (PF) 1,000 MCG in 0.9 % Sodium Chloride 80 ML IVC SCH (07:00)
[2017-06-25 07:49] LABS: ABG Base Excess 5 mEq/L (-2 to 3); ABG HCO3 38 mEq/L (21-27); ABG Oxygen Saturation 82 % (95-98); ABG PCO2 101 mmHg (35-45); ABG PH 7.18 pH Units (7.32-7.45); ABG PO2 62 mmHg (85-104); ABG TCO2 41 mEq/L (20-26); Blood Gas Modality VC; Blood Gas PEEP 5 cm H2O; Blood Gas Respiration Rate 16; Blood Gas VT 500 cc
[2017-06-25] MEDS: FentaNYL (PF) 1,000 MCG in 0.9 % Sodium Chloride 80 ML IVC SCH ×2 (08:30→18:10)
--- NOTE | 2017-06-25 08:46 | Pulmonology Progress Note ---
<PrincessScott W - Last Filed: 06/25/17 12:26> Date of Encounter: 06/25/17 Objective PUL Vital signs: Last Vital Signs Temp 98.6 F 06/25/17 08:00 Pulse 58 06/25/17 08:00 Resp 22 06/25/17 08:00 BP 97/71 06/25/17 08:00 Pulse Ox 95 06/25/17 08:00 Ventilator Settings Ventilator Settings: Ventilator Settings, Last 8 Hours Ventilator Mode VC+ Ventilator Mode VC+ Ventilator Mode VC+ Ventilator Mode VC+ Ventilator Mode VC+ Ventilator Tidal Volume 500 Setting Ventilator Tidal Volume 500 Setting Ventilator Tidal Volume 500 Setting Ventilator Tidal Volume 500 Setting Ventilator Tidal Volume 500 Setting Ventilator Tidal Volume 600 Setting Ventilator Respiratory Rate 22 Setting Ventilator Respiratory Rate 22 Setting Ventilator Respiratory Rate 16 Setting Ventilator Respiratory Rate 16 Setting Ventilator Respiratory Rate 16 Setting Actual Respiratory Rate 22 Actual Respiratory Rate 22 Actual Respiratory Rate 16 Actual Respiratory Rate 16 Positive End Expiratory 10 Pressure Positive End Expiratory 10 Pressure Positive End Expiratory 5 Pressure Positive End Expiratory 10 Pressure Positive End Expiratory 5 Pressure Peak Inspiratory Airway 26 Pressure Peak Inspiratory Airway 26 Pressure Peak Inspiratory Airway 26 Pressure Peak Inspiratory Airway 20 Pressure Results - Laboratory Findings CBC and BMP: 06/25/17 03:45 06/25/17 09:07 ABG ABG pH 7.18 pH Units (7.32-7.45) L* 06/25/17 07:32 ABG pCO2 101 mmHg (35-45) H* 06/25/17 07:32 ABG pO2 62 mmHg (85-104) L 06/25/17 07:32 ABG O2 Saturation 82 % (95-98) L 06/25/17 07:32 PT/INR, D-dimer PT 10.6 Seconds (9.4-12.1) 06/25/17 00:15 Abnormal lab findings: Abnormal lab results WBC 13.8 K/mcL (4.3-11.1) H 06/25/17 03:45 MCHC 30.2 g/dL (31.6-35.5) L 06/25/17 03:45 RDW 15.9 % (11.5-14.5) H 06/25/17 03:45 Neutrophils # 12.0 K/mcL (1.6-8.9) H 06/25/17 03:45 Nucleated RBCs/100 WBC 0.1 /100 WBC (0) H 06/25/17 03:45 ABG pH 7.18 pH Units (7.32-7.45) L* 06/25/17 07:32 ABG pCO2 101 mmHg (35-45) H* 06/25/17 07:32 ABG pO2 62 mmHg (85-104) L 06/25/17 07:32 ABG HCO3 38 mEq/L (21-27) H 06/25/17 07:32 ABG Total CO2 41 mEq/L (20-26) H 06/25/17 07:32 ABG O2 Saturation 82 % (95-98) L 06/25/17 07:32 ABG Base Excess 5 mEq/L (-2 to 3) H 06/25/17 07:32 Sodium 135 mEq/L (136-145) L 06/25/17 03:45 Potassium 6.1 mEq/L (3.5-5.1) H 06/25/17 03:45 Carbon Dioxide 31 mEq/L (23-29) H 06/25/17 03:45 BUN 26 mg/dL (8-23) H 06/25/17 03:45 Glucose 219 mg/dL (70-105) H 06/25/17 03:45 Phosphorus 4.7 mg/dL (2.7-4.5) H 06/25/17 00:15 B-Natriuretic Peptide 258 pg/mL (Less than 100) H 06/25/17 01:13 - Clinical Findings Intake & Output: Intake & Output 06/24/17 06/25/17 06/25/17 23:59 07:59 15:59 Output Total 570 / 570 Balance -570 / -570 Consult Discharge Plan - Plan Referrals: NONE,PCP [Primary Care Provider] - - Attending Attestation I examined this patient and my medical decision-making was reviewed with the Resident Physician. I agree with the documented findings, disposition and treatment plan as described except to the extent set forth below. We independently had [id number] contact with the patient I spent 35min of Critical Care time with this patient. It involved decision making of high complexity to assess, manipulate, and support vital organ system failure and/or to prevent further life threatening deterioration of the patient' s condition. The time involved in the performance of separately reportable procedures was not counted toward critical care time. Patient seen and examined at bedside Labs, radiology, chart personally reviewed. Management was reviewed during multidisciplinary critical care rounds. TERADATA DEVELOPER: Patient was encephalopathic secondary to acidosis and underlying sepsis requiring intubation. Currently he is able to nod head and move all extremities continue sedation prevent vertical Jesus scale 2-[address] within normal limits Pulm: Acute on chronic hypoxic hypercarbic respiratory failure secondary to pneumonia complicated by hydrostatic pulmonary edema and chronic COPD with exacerbation. Currently intubated ventilator adjusted to improve respiratory acidosis by increasing minute ventilation no evidence of significant abdominal PEEP and otherwise acceptable respiratory mechanics. I also increased PEEP of underlying pneumonia and hydrostatic edema. He is currently not a candidate for spontaneous breathing trial. Mild persistent respiratory acidosis which we will monitor closely Cards: Hypotension without evidence of shock physiology which is likely related to acidosis and sedation effect which has resolved. He has benefited from crystalloid challenge as well as a colloid (albumin) challenge. Lactate within normal limits FEN-GI: Nothing by mouth for now GI prophylaxis given Renal: No evidence of JAMEEL does have hyperkalemia of unclear etiology possibly related acidosis there is also some concern for adrenal insufficiency which we are checking a random cortisol ID: Patient is on broad-spectrum antibiotics for presumed pneumonia with exposure to hospital and community-acquired organisms with planned to de- escalate in 48 hours based upon cultures Heme/Onc: DVT prophylaxis given Endo: Glucose Monitored Integ/MSK: Skin Care per routine ICU Nursing Protocol to prevent ulcers. Lines: All lines examined without evidence of infection : Dispo: Remain in ICU CODE: Full code <Naveen Cronin - Last Filed: 06/25/17 15:22> Date of Encounter: 06/25/17 Time of Encounter: 07:40 Assessment and Plan (1) Acute on chronic respiratory failure with hypoxia and hypercapnia Current Visit: Yes Status: Acute - Acute respiratory failure likely secondary to COPD exacerbation with possible underlying pneumonia. - Patient has been hospitalized multiple times in the past 6 months for COPD exacerbations and pneumonia - Arterial blood gas revealed a respiratory acidosis with incomplete metabolic compensation - Vital signs have been stable and patient is nonseptic appearing however he does have a WBC of 13.8 which has down trended from 14.8 previously - Chest x-ray showing a left lung infiltrate Plan - Patient is currently intubated as of 0600 this morning for increased somnolence and is not ready to attempt a spontaneous breathing trial at this time - We will treat underlying etiologies as below and attempt to wean from ventilator as soon as able (2) Acute exacerbation of chronic obstructive airways disease Current Visit: Yes Status: Acute - History of severe COPD per chart review and patient's fiance - Multiple admissions in the past for COPD exacerbations - Currently tolerating ventilator support - Respiratory panel was negative for viral infection Plan - Continue Solu-Medrol 40 mg every 6 hours, DuoNeb nebs, antibiotics - Continue vancomycin, cefepime, azithromycin day #1 (3) HCAP (healthcare-associated pneumonia) Current Visit: Yes Status: Acute - Chest x-ray on admission showed left lower lung infiltrate - Patient with septic on arrival with pulse 111, respirations 26, WBC of 14.8 - He was started on vancomycin, cefepime, azithromycin - Multiple admissions in the past 6 months to this facility - Currently he is aseptic, afebrile vital signs within acceptable limits - Blood cultures and sputum cultures pending Plan - Continue antibiotics as above day #1 - Continue ventilator support and attempt to wean as soon as able - Plan to de-escalate pending culture sensitivities (4) Hypotension Current Visit: Yes Status: Acute - Patient has been mildly hypotensive since presentation, most recent blood pressure 85/63 - This may be secondary to sedation versus septic process - Patient has been tolerating this blood pressure and it is improving with the addition of albumin this morning - I did discuss the possibility of central venous access with con and she states that he has discussed wanting everything done at previous admission Plan - We will continue to monitor for the time being - Careful monitoring with low threshold for central venous line and pressor support Qualifiers: Hypotension type: unspecified hypotension type Qualified Code(s): I95.9 - Hypotension, unspecified (5) Hyperkalemia Current Visit: Yes Status: Acute - Potassium of 6.5 most recently, which is up trending from 6.1 - Etiology unclear at this time however may be secondary to acidosis, decrease arterial blood volume, possible adrenal insufficiency - He has received Kayexalate, insulin, albuterol - No EKG changes at this time - Renal function within normal limits at 02/05.15 Plan - Potassium checks every 2 hours - Repeat Kayexalate and albuterol as needed - Random cortisol level pending - Low threshold to get nephrology involved if remains elevated - We will also obtain echocardiogram to rule out decrease arterial blood volume including congestive heart failure (6) Type 2 diabetes mellitus Current Visit: Yes Status: Chronic - Blood sugar of 219 most recently - A1c of 10.0%, however this is notably 2 years ago - We will obtain repeat A1c in the morning - Sliding scale insulin Qualifiers: Diabetes mellitus senior living insulin use: without senior living use Diabetes mellitus complication status: with unspecified complications Qualified Code(s) : E11.8 - Type 2 diabetes mellitus with unspecified complications (7) DVT prophylaxis Current Visit: Yes Status: Acute Heparin 5000 units every 8 hours Subjective Principal diagnosis: Acute respiratory failure Interval history: This note is not for billing purposes. Patient was seen and examined at bedside this morning. During time of interview, patient is sedated and intubated and not able to provide a subjective history. He is resting comfortably and does open his eyes to tactile stimuli. I did try to contact the medical power of tetryl wringer operator, his mother Jessica, and was unable to reach her. I did however speak to his fiancee, Roxanna Gardner, at [phone]. She states that patient has been admitted to the hospital multiple times over the past couple months for COPD related illnesses. She states that he would desire full treatment occluding intubation, central venous catheter, full CODE STATUS. She also related that his mother is the power of tetryl wringer operator however she turns her cell phone off at night. Objective PUL Vital signs: Last Vital Signs Temp 98.6 F 06/25/17 08:00 Pulse 58 06/25/17 08:00 Resp 22 06/25/17 08:00 BP 97/71 06/25/17 08:00 Pulse Ox 95 06/25/17 08:00 Gen.: Vitals noted. No acute distress. Resting comfortably and does respond to verbal stimuli. HEENT: PERRL/EOMI, oropharynx clear, Normocephalic, atraumatic. And a tracheal tube in place Cardiac: RRR, no murmur, +S1/S2 Pulmonary: Decreased breath sounds throughout, mild rales. equal chest expansion Abdomen: soft, BS noted, no guarding Extremities: no BLE edema, nontender calf, no cyanosis or clubbing Neuro: Resting comfortably and sedated. Does follow commands Psych: Appropriate mood and behavior Ventilator Settings Ventilator Settings: Ventilator Settings, Last 8 Hours Ventilator Mode VC+ Ventilator Mode VC+ Ventilator Mode VC+ Ventilator Mode VC+ Ventilator Mode VC+ Ventilator Tidal Volume 500 Setting Ventilator Tidal Volume 500 Setting Ventilator Tidal Volume 500 Setting Ventilator Tidal Volume 500 Setting Ventilator Tidal Volume 500 Setting Ventilator Tidal Volume 600 Setting Ventilator Respiratory Rate 22 Setting Ventilator Respiratory Rate 22 Setting Ventilator Respiratory Rate 16 Setting Ventilator Respiratory Rate 16 Setting Ventilator Respiratory Rate 16 Setting Actual Respiratory Rate 22 Actual Respiratory Rate 22 Actual Respiratory Rate 16 Actual Respiratory Rate 16 Positive End Expiratory 10 Pressure Positive End Expiratory 10 Pressure Positive End Expiratory 5 Pressure Positive End Expiratory 10 Pressure Positive End Expiratory 5 Pressure Peak Inspiratory Airway 26 Pressure Peak Inspiratory Airway 26 Pressure Peak Inspiratory Airway 26 Pressure Peak Inspiratory Airway 20 Pressure Results - Laboratory Findings CBC and BMP: 06/25/17 03:45 06/25/17 13:56 ABG ABG pH 7.18 pH Units (7.32-7.45) L* 06/25/17 07:32 ABG pCO2 101 mmHg (35-45) H* 06/25/17 07:32 ABG pO2 62 mmHg (85-104) L 06/25/17 07:32 ABG O2 Saturation 82 % (95-98) L 06/25/17 07:32 PT/INR, D-dimer PT 10.6 Seconds (9.4-12.1) 06/25/17 00:15 Abnormal lab findings: Abnormal lab results WBC 13.8 K/mcL (4.3-11.1) H 06/25/17 03:45 MCHC 30.2 g/dL (31.6-35.5) L 06/25/17 03:45 RDW 15.9 % (11.5-14.5) H 06/25/17 03:45 Neutrophils # 12.0 K/mcL (1.6-8.9) H 06/25/17 03:45 Nucleated RBCs/100 WBC 0.1 /100 WBC (0) H 06/25/17 03:45 ABG pH 7.18 pH Units (7.32-7.45) L* 06/25/17 07:32 ABG pCO2 101 mmHg (35-45) H* 06/25/17 07:32 ABG pO2 62 mmHg (85-104) L 06/25/17 07:32 ABG HCO3 38 mEq/L (21-27) H 06/25/17 07:32 ABG Total CO2 41 mEq/L (20-26) H 06/25/17 07:32 ABG O2 Saturation 82 % (95-98) L 06/25/17 07:32 ABG Base Excess 5 mEq/L (-2 to 3) H 06/25/17 07:32 Sodium 135 mEq/L (136-145) L 06/25/17 03:45 Potassium 6.1 mEq/L (3.5-5.1) H 06/25/17 03:45 Carbon Dioxide 31 mEq/L (23-29) H 06/25/17 03:45 BUN 26 mg/dL (8-23) H 06/25/17 03:45 Glucose 219 mg/dL (70-105) H 06/25/17 03:45 Phosphorus 4.7 mg/dL (2.7-4.5) H 06/25/17 00:15 B-Natriuretic Peptide 258 pg/mL (Less than 100) H 06/25/17 01:13 - Clinical Findings Intake & Output: Intake & Output 06/24/17 06/25/17 06/25/17 23:59 07:59 15:59 Output Total 570 / 570 Balance -570 / -570
[2017-06-25 09:55] LABS: Potassium 6.5 mEq/L (3.5-5.1)
[2017-06-25] MEDS: Azithromycin 500 MG in D5% in Water 250 ML IVPB SCH (10:21)
[2017-06-25] MEDS: Furosemide 20 MG/2 ML VIAL IVP SCH (10:22)
[2017-06-25] MEDS: Chlorhexidine Rinse 15 ML MOUTHWASH MM SCH ×2 (10:22→20:37)
[2017-06-25] MEDS: Lacri-Lube 3.5 GM TUBE BOTH EYES SCH ×5 (10:22→23:33)
[2017-06-25] MEDS: Pantoprazole 40 MG VIAL IVP SCH (10:22)
[2017-06-25] MEDS ORDERED: Albuterol 2.5 MG/3 ML NEBULIZER IH ONE (10:52)
[2017-06-25 11:15] LABS: ABG Base Excess 5 mEq/L (-2 to 3); ABG HCO3 35 mEq/L (21-27); ABG Oxygen Saturation 94 % (95-98); ABG PCO2 76 mmHg (35-45); ABG PH 7.27 pH Units (7.32-7.45); ABG PO2 82 mmHg (85-104); ABG TCO2 37 mEq/L (20-26); Blood Gas Modality VC; Blood Gas PEEP 10 cm H2O; Blood Gas Respiration Rate 22; Blood Gas VT 500 cc
[2017-06-25] MEDS: Dexmedetomidine HCl 400 MCG/100 ML MLS IVC SCH ×3 (11:36→21:52)
[2017-06-25] MEDS ORDERED: *HR* Etomidate 40 MG/20 ML VIAL IVP ONE (12:05)
[2017-06-25] MEDS ORDERED: *HR* Rocuronium Bromide 100 MG/10 ML VIAL IVC ONE (12:05)
[2017-06-25 13:09] LABS: Adenovirus Not Detected (Not Detect); Bordetella Pertussis Not Detected (Not Detect); Chlamydophila pneumoniae Not Detected (Not Detect); Coronavirus 229E Not Detected (Not Detect); Coronavirus HKU1 Not Detected (Not Detect); Coronavirus NL63 Not Detected (Not Detect); Coronavirus OC43 Not Detected (Not Detect); Human Metapneumovirus Not Detected (Not Detect); Human Rhinovirus/Enterovirus Not Detected (Not Detect); Influenza A Subtype 2009 H1 Not Detected (Not Detect); Influenza A Untypeable Not Detected (Not Detect); Influenza B Not Detected (Not Detect); Mycoplasma pneumoniae Not Detected (Not Detect); Parainfluenza Virus 1 Not Detected (Not Detect); Parainfluenza Virus 2 Not Detected (Not Detect); Parainfluenza Virus 3 Not Detected (Not Detect); Parainfluenza Virus 4 Not Detected (Not Detect); Respiratory Syncytial Virus Not Detected (Not Detect)
[2017-06-25] MEDS ORDERED: Perflutren Lipid Microsphere 2 ML VIAL ONE (15:42)
[2017-06-25] MEDS ORDERED: *HR* LORazepam 2 MG/ML VIAL IVP PRN (17:01)
[2017-06-25] MEDS ORDERED: Cosyntropin 250 MCG/2 ML VIAL IVP ONE (17:07)
[2017-06-25] MEDS: *HR* LORazepam 2 MG/ML VIAL IVP SCH ×2 (18:09→23:32)
--- NOTE | 2017-06-25 20:06 | Electrocardiograph Report ---
[address] [address] Test Date: 2017-06-25 Pat Name: Сергей [place] Department: 102 Room: 03 Gender: M Head Charger: Dayanara : 1955 Requested By: Aron Villalobos Order Number: [id number] Reading MD: Kai Eugene MD Measurements Intervals [place] Rate: 97 P: 91 VA: 175 QRS: 82 QRSD: 102 T: 39 QT: 340 QTc: 395 Interpretive Statements SINUS RHYTHM Electronically Signed On 06-25-2017 20:04:25 EDT by Kai Eugene MD
[2017-06-26] MEDS: Insulin LISPRO 300 UNITS/3 ML VIAL SQ SCH ×5 (00:34→23:42)
[2017-06-26] MEDS: FentaNYL (PF) 1,000 MCG in 0.9 % Sodium Chloride 80 ML IVC SCH ×4 (00:40→22:51)
[2017-06-26 03:51] LABS: Basophils % 0.2 %; Hematocrit 40.9 % (37.5-50.1); Hemoglobin 12.7 g/dL (12.9-16.9); Lymphocytes # 0.5 K/mcL (0.6-4.6); Lymphocytes % 3.4 %; Mean Corpuscular HGB Conc 31.1 g/dL (31.6-35.5); Mean Corpuscular Hemoglobin 28.3 pg (28.0-33.3); Mean Corpuscular Volume 91.3 fL (83.0-100.0); Mean Platelet Volume 13.3 fL (9.4-12.4); Monocytes # 0.2 K/mcL (0.0-1.3); Monocytes % 1.2 %; Neutrophils # 12.8 K/mcL (1.6-8.9); Nucleated Red Blood Cells 0.1 /100 WBC (0); Platelet Count 152 K/mcL (140-400); Red Blood Count 4.48 M/mcL (4.19-5.50); Red Cell Distribution Width 15.1 % (11.5-14.5); Segmented Neutrophils % 94.2 %
[2017-06-26] MEDS: Lacri-Lube 3.5 GM TUBE BOTH EYES SCH ×6 (03:58→23:46)
[2017-06-26] MEDS: Ipratropium/Albuterol Neb 3 ML IH SCH ×4 (04:03→21:10)
[2017-06-26 04:11] LABS: Calcium 8.5 mg/dL (8.6-10.3); Potassium 5.3 mEq/L (3.5-5.1)
[2017-06-26 04:51] LABS: ABG Base Excess 6 mEq/L (-2 to 3); ABG HCO3 35 mEq/L (21-27); ABG Oxygen Saturation 97 % (95-98); ABG PCO2 71 mmHg (35-45); ABG PO2 109 mmHg (85-104); ABG TCO2 37 mEq/L (20-26); Blood Gas PEEP 10 cm H2O; Blood Gas Respiration Rate 22; Blood Gas VT 500 cc
[2017-06-26] MEDS: Cefepime HCl 2,000 MG in Water for inj. (sterile) 20 ML 20 ML IVPB SCH ×2 (06:27→16:47)
[2017-06-26] MEDS: MethylPREDNISolone 40 MG/ML VIAL IVP SCH ×4 (06:27→23:45)
[2017-06-26] MEDS: *HR* Heparin 5,000 UNIT/ML VIAL SQ SCH ×3 (06:27→23:45)
[2017-06-26] MEDS: Azithromycin 500 MG in D5% in Water 250 ML IVPB SCH (07:23)
[2017-06-26] MEDS: Furosemide 20 MG/2 ML VIAL IVP SCH (07:24)
[2017-06-26] MEDS: Chlorhexidine Rinse 15 ML MOUTHWASH MM SCH ×2 (07:24→19:55)
[2017-06-26] MEDS: Pantoprazole 40 MG VIAL IVP SCH (07:24)
--- NOTE | 2017-06-26 08:47 | Pulmonology Progress Note ---
<PrincessScott W - Last Filed: 06/26/17 11:03> Date of Encounter: 06/26/17 Objective PUL Vital signs: Last Vital Signs Temp 99.1 F 06/26/17 08:00 Pulse 55 06/26/17 09:00 Resp 22 06/26/17 09:00 BP 105/66 06/26/17 09:00 Pulse Ox 95 06/26/17 09:00 Ventilator Settings Ventilator Settings: Ventilator Settings, Last 8 Hours Ventilator Mode VC+ Ventilator Mode VC+ Ventilator Mode VC+ Ventilator Mode VC+ Ventilator Mode VC+ Ventilator Mode VC+ Ventilator Mode VC+ Ventilator Mode VC+ Ventilator Mode VC+ Ventilator Mode VC+ Ventilator Mode VC+ Ventilator Mode VC+ Ventilator Tidal Volume 500 Setting Ventilator Tidal Volume 500 Setting Ventilator Tidal Volume 500 Setting Ventilator Tidal Volume 500 Setting Ventilator Tidal Volume 500 Setting Ventilator Tidal Volume 500 Setting Ventilator Tidal Volume 500 Setting Ventilator Tidal Volume 500 Setting Ventilator Tidal Volume 500 Setting Ventilator Tidal Volume 500 Setting Ventilator Tidal Volume 500 Setting Ventilator Tidal Volume 500 Setting Ventilator Respiratory Rate 22 Setting Ventilator Respiratory Rate 22 Setting Ventilator Respiratory Rate 22 Setting Ventilator Respiratory Rate 22 Setting Ventilator Respiratory Rate 22 Setting Ventilator Respiratory Rate 22 Setting Ventilator Respiratory Rate 22 Setting Ventilator Respiratory Rate 22 Setting Ventilator Respiratory Rate 22 Setting Ventilator Respiratory Rate 22 Setting Ventilator Respiratory Rate 22 Setting Ventilator Respiratory Rate 22 Setting Actual Respiratory Rate 22 Actual Respiratory Rate 22 Actual Respiratory Rate 22 Actual Respiratory Rate 22 Actual Respiratory Rate 22 Actual Respiratory Rate 22 Actual Respiratory Rate 22 Actual Respiratory Rate 22 Actual Respiratory Rate 22 Actual Respiratory Rate 22 Actual Respiratory Rate 22 Positive End Expiratory 10 Pressure Positive End Expiratory 10 Pressure Positive End Expiratory 10 Pressure Positive End Expiratory 10 Pressure Positive End Expiratory 10 Pressure Positive End Expiratory 10 Pressure Positive End Expiratory 10 Pressure Positive End Expiratory 10 Pressure Positive End Expiratory 10 Pressure Positive End Expiratory 10 Pressure Positive End Expiratory 10 Pressure Positive End Expiratory 10 Pressure Peak Inspiratory Airway 24 Pressure Peak Inspiratory Airway 25 Pressure Peak Inspiratory Airway 24 Pressure Peak Inspiratory Airway 24 Pressure Peak Inspiratory Airway 26 Pressure Peak Inspiratory Airway 21 Pressure Peak Inspiratory Airway 26 Pressure Peak Inspiratory Airway 28 Pressure Peak Inspiratory Airway 26 Pressure Results - Laboratory Findings CBC and BMP: 06/26/17 03:15 06/26/17 03:15 ABG ABG pH 7.30 pH Units (7.32-7.45) L 06/26/17 04:46 ABG pCO2 71 mmHg (35-45) H* 06/26/17 04:46 ABG pO2 109 mmHg (85-104) H 03/22/18 04:46 ABG O2 Saturation 97 % (95-98) 06/26/17 04:46 PT/INR, D-dimer PT 10.6 Seconds (9.4-12.1) 06/25/17 00:15 Abnormal lab findings: Abnormal lab results WBC 13.6 K/mcL (4.3-11.1) H 06/26/17 03:15 Hgb 12.7 g/dL (12.9-16.9) L 06/26/17 03:15 MCHC 31.1 g/dL (31.6-35.5) L 06/26/17 03:15 RDW 15.1 % (11.5-14.5) H 06/26/17 03:15 MPV 13.3 fL (9.4-12.4) H 06/26/17 03:15 Neutrophils # 12.8 K/mcL (1.6-8.9) H 06/26/17 03:15 Lymphocytes # 0.5 K/mcL (0.6-4.6) L 06/26/17 03:15 Nucleated RBCs/100 WBC 0.1 /100 WBC (0) H 06/26/17 03:15 ABG pH 7.30 pH Units (7.32-7.45) L 06/26/17 04:46 ABG pCO2 71 mmHg (35-45) H* 06/26/17 04:46 ABG pO2 109 mmHg (85-104) H 06/26/17 04:46 ABG HCO3 35 mEq/L (21-27) H 06/26/17 04:46 ABG Total CO2 37 mEq/L (20-26) H 06/26/17 04:46 ABG Base Excess 6 mEq/L (-2 to 3) H 06/26/17 04:46 Sodium 135 mEq/L (136-145) L 06/26/17 03:15 Potassium 5.3 mEq/L (3.5-5.1) H 06/26/17 03:15 Carbon Dioxide 30 mEq/L (23-29) H 06/26/17 03:15 BUN 48 mg/dL (8-23) H 06/26/17 03:15 Creatinine 1.47 mg/dL (0.70-1.30) H 06/26/17 03:15 Est GFR ( Amer) 59 (> 60) L 06/26/17 03:15 Est GFR (Non-Af Amer) 49 (> 60) L 06/26/17 03:15 BUN/Creatinine Ratio 33 (6-26) H 06/26/17 03:15 Glucose 276 mg/dL (70-105) H 06/26/17 03:15 POC Glucose 246 (58-89) H 06/26/17 00:32 Calculated Osmolality 302 (280-300) H 06/26/17 03:15 Calcium 8.5 mg/dL (8.6-10.3) L 06/26/17 03:15 Phosphorus 4.7 mg/dL (2.7-4.5) H 06/25/17 00:15 B-Natriuretic Peptide 258 pg/mL (Less than 100) H 06/25/17 01:13 - Microbiology Findings Microbiology Findings: Microbiology, Last 48 Hours 06/25/17 09:00 Legionella Antigen - Final Urine,Clean Catch Streptococcus pneumoniae Antigen (M - Final - Clinical Findings Intake & Output: Intake & Output 06/25/17 06/26/17 06/26/17 23:59 07:59 15:59 Intake Total 944 / 944 1101 / 1101 250 / 250 Output Total 1100 / 1100 575 / 575 225 / 225 Balance -156 / -156 526 / 526 25 / 25 Consult Discharge Plan - Plan Referrals: NONE,PCP [Primary Care Provider] - - Attending Attestation I examined this patient and my medical decision-making was reviewed with the Resident Physician. I agree with the documented findings, disposition and treatment plan as described except to the extent set forth below. We independently had [id number] contact with the patient Patient seen and examined at bedside Labs, radiology, chart personally reviewed. Management was reviewed during multidisciplinary critical care rounds. REGISTER OF DEEDS: Sedated on vent increasing agitation concerning for delirium requiring increase in sedation today however no focal neurological deficit. Chronic use of benzodiazepines has prompted transitioned from propofol to Versed we will also continue infusion of narcotic as needed Pulm: Hypoxic hypercarbic respiratory failure on vent acceptable gas exchange today decreased FiO2 plan to decrease PEEP over the next 24-48 hours Cards: History of heart failure with evidence of hydrostatic pulmonary edema starting diuretic FEN-GI: Start enteral nutrition for dietary recommendations GI prophylaxis given Renal: Mild increase in serum creatinine which is likely effect of possible hypotension and possible combination of medications that he is on all medications are being renally dosed we will closely monitor potassium which has been trending down ID: Concern for pneumonia with exposure to hospital-acquired organisms is on day 2 broad-spectrum antimicrobials with positive de-escalate based on cultures and sensitivities Heme/Onc: DVT prophylaxis given Endo: Glucose Monitored; pierced a mild adrenal insufficiency from iatrogenic steroid use this will need as outpatient follow-up Integ/MSK: Skin Care per routine ICU Nursing Protocol to prevent ulcers. Lines: All lines examined without evidence of infection : Dispo: remain in ICU CODE: Full code fiance was updated and bedside <UliseslinoNaveen - Last Filed: 06/26/17 13:43> Date of Encounter: 06/26/17 Time of Encounter: 08:47 Assessment and Plan (1) Acute on chronic respiratory failure with hypoxia and hypercapnia Current Visit: Yes Status: Acute - Acute respiratory failure likely secondary to COPD exacerbation with possible underlying pneumonia. - Patient has been hospitalized multiple times in the past 6 months for COPD exacerbations and pneumonia - Arterial blood gas revealed a respiratory acidosis with incomplete metabolic compensation, mildly improved today - Vital signs have been stable and patient is nonseptic appearing however he does have a WBC of 13.6 which has down trended from 14.8 on admission - Chest x-ray showing a left lung infiltrate Plan - Patient is currently intubated and will remain ventilator dependent until his underlying pulmonary function improves. - We will treat underlying etiologies as below and attempt to wean from ventilator as soon as able (2) Acute exacerbation of chronic obstructive airways disease Current Visit: Yes Status: Acute - History of severe COPD per chart review and patient's fiance - Multiple admissions in the past for COPD exacerbations - Currently tolerating ventilator support - Respiratory panel was negative for viral infection Plan - Continue Solu-Medrol 40 mg every 6 hours, DuoNeb nebs, antibiotics - Continue vancomycin, cefepime, azithromycin day #2 (3) HCAP (healthcare-associated pneumonia) Current Visit: Yes Status: Acute - Chest x-ray on admission showed left lower lung infiltrate - Patient with septic on arrival with pulse 111, respirations 26, WBC of 14.8 - He was started on vancomycin, cefepime, azithromycin - Multiple admissions in the past 6 months to this facility - Currently he is aseptic, afebrile vital signs within acceptable limits - Blood cultures and sputum cultures pending, negative preliminary results. Plan - Continue antibiotics as above day #2 - Continue ventilator support and attempt to wean as soon as able - Plan to de-escalate pending culture sensitivities (4) Hypotension Current Visit: Yes Status: Acute - Patient has been mildly hypotensive since presentation, most recent blood pressure 85/63 - This may be secondary to sedation versus septic process - Patient has been tolerating this blood pressure and it is improving with the addition of albumin this morning - I did discuss the possibility of central venous access with con and she states that he has discussed wanting everything done at previous admission Plan - We will continue to monitor for the time being - Careful monitoring with low threshold for central venous line and pressor support Qualifiers: Hypotension type: unspecified hypotension type Qualified Code(s): I95.9 - Hypotension, unspecified (5) Hyperkalemia Current Visit: Yes Status: Acute - Potassium of 5.3 most recently, which is improved from yesterday following kayexalate, albuterol, and insulin - Etiology unclear at this time however may be secondary to acidosis, decrease arterial blood volume, possible adrenal insufficiency - He has received Kayexalate, insulin, albuterol - No EKG changes at this time - Renal function mildly decreased today at 48/1.47 - Cosyntropin test performed last evening revealing adrenal insufficiency, however patient has been stable and electrolytes are improving so we will not give stress dose steroids at this time and monitor. Plan - Continue to monitor at this time. - Repeat Kayexalate and albuterol as needed - Low threshold to get nephrology involved if remains elevated - We will also obtain echocardiogram to rule out decrease arterial blood volume including congestive heart failure (6) Type 2 diabetes mellitus Current Visit: Yes Status: Chronic - Blood sugar of 276 most recently - A1c of 7.0% this morning. - Sliding scale insulin increased to moderate Qualifiers: Diabetes mellitus care home insulin use: without care home use Diabetes mellitus complication status: with unspecified complications Qualified Code(s) : E11.8 - Type 2 diabetes mellitus with unspecified complications (7) Adrenal insufficiency Current Visit: Yes Status: Acute - Cosyntropin stimulation test performed last night suggestive of adrenal insufficiency - This is possibly secondary to frequent COPD exacerbations requiring steroid use and now patient is acutely ill and stressed - He has been receiving SOlumedrol 40mg [id number] for COPD - Boarderline Hypotensive with hyperkalemia since admission - Most recent K of 5.3, BP 99/58 Plan - Monitor at this time and continue current regimen - Treat hyperkalemia as above. - Closely monitor BP for changes. (8) DVT prophylaxis Current Visit: Yes Status: Acute Heparin 5000 units every 8 hours Subjective Principal diagnosis: Acute respiratory failure Interval history: This note is not for billing purposes. Patient was seen and examined at bedside this morning. During time of interview, patient is sedated and intubated and not able to provide a subjective history. He is resting comfortably and does open his eyes to tactile stimuli. Objective PUL Vital signs: Last Vital Signs Temp 99.1 F 06/26/17 08:00 Pulse 55 06/26/17 08:00 Resp 22 06/26/17 08:00 BP 103/66 06/26/17 08:00 Pulse Ox 95 06/26/17 08:00 Gen.: Vitals noted. No acute distress. Resting comfortably on sedated. HEENT: PERRL/EOMI, oropharynx clear, Normocephalic, atraumatic, MMM Cardiac: RRR, no murmur, +S1/S2 Pulmonary: CTA bilaterally, no wheezes, rales or rhonchi, equal chest expansion Abdomen: soft, nontender, BS noted, no guarding MSK: ROM intact, no joint swelling noted Extremities: Minimal BLE edema, nontender calf, no cyanosis or clubbing Neuro Sedated, resting comfortably. Psych: Appropriate mood and behavior Ventilator Settings Ventilator Settings: Ventilator Settings, Last 8 Hours Ventilator Mode VC+ Ventilator Mode VC+ Ventilator Mode VC+ Ventilator Mode VC+ Ventilator Mode VC+ Ventilator Mode VC+ Ventilator Mode VC+ Ventilator Mode VC+ Ventilator Mode VC+ Ventilator Mode VC+ Ventilator Mode VC+ Ventilator Mode VC+ Ventilator Mode VC+ Ventilator Tidal Volume 500 Setting Ventilator Tidal Volume 500 Setting Ventilator Tidal Volume 500 Setting Ventilator Tidal Volume 500 Setting Ventilator Tidal Volume 500 Setting Ventilator Tidal Volume 500 Setting Ventilator Tidal Volume 500 Setting Ventilator Tidal Volume 500 Setting Ventilator Tidal Volume 500 Setting Ventilator Tidal Volume 500 Setting Ventilator Tidal Volume 500 Setting Ventilator Tidal Volume 500 Setting Ventilator Tidal Volume 500 Setting Ventilator Respiratory Rate 22 Setting Ventilator Respiratory Rate 22 Setting Ventilator Respiratory Rate 22 Setting Ventilator Respiratory Rate 22 Setting Ventilator Respiratory Rate 22 Setting Ventilator Respiratory Rate 22 Setting Ventilator Respiratory Rate 22 Setting Ventilator Respiratory Rate 22 Setting Ventilator Respiratory Rate 22 Setting Ventilator Respiratory Rate 22 Setting Ventilator Respiratory Rate 22 Setting Ventilator Respiratory Rate 22 Setting Ventilator Respiratory Rate 22 Setting Actual Respiratory Rate 22 Actual Respiratory Rate 22 Actual Respiratory Rate 22 Actual Respiratory Rate 22 Actual Respiratory Rate 22 Actual Respiratory Rate 22 Actual Respiratory Rate 22 Actual Respiratory Rate 22 Actual Respiratory Rate 22 Actual Respiratory Rate 22 Actual Respiratory Rate 22 Actual Respiratory Rate 23 Positive End Expiratory 10 Pressure Positive End Expiratory 10 Pressure Positive End Expiratory 10 Pressure Positive End Expiratory 10 Pressure Positive End Expiratory 10 Pressure Positive End Expiratory 10 Pressure Positive End Expiratory 10 Pressure Positive End Expiratory 10 Pressure Positive End Expiratory 10 Pressure Positive End Expiratory 10 Pressure Positive End Expiratory 10 Pressure Positive End Expiratory 10 Pressure Positive End Expiratory 10 Pressure Peak Inspiratory Airway 25 Pressure Peak Inspiratory Airway 24 Pressure Peak Inspiratory Airway 24 Pressure Peak Inspiratory Airway 26 Pressure Peak Inspiratory Airway 21 Pressure Peak Inspiratory Airway 26 Pressure Peak Inspiratory Airway 28 Pressure Peak Inspiratory Airway 26 Pressure Peak Inspiratory Airway 24 Pressure Peak Inspiratory Airway 25 Pressure Results - Laboratory Findings CBC and BMP: 06/26/17 03:15 06/26/17 03:15 ABG ABG pH 7.30 pH Units (7.32-7.45) L 06/26/17 04:46 ABG pCO2 71 mmHg (35-45) H* 06/26/17 04:46 ABG pO2 109 mmHg (85-104) H 06/26/17 04:46 ABG O2 Saturation 97 % (95-98) 06/26/17 04:46 PT/INR, D-dimer PT 10.6 Seconds (9.4-12.1) 06/25/17 00:15 Abnormal lab findings: Abnormal lab results WBC 13.6 K/mcL (4.3-11.1) H 06/26/17 03:15 Hgb 12.7 g/dL (12.9-16.9) L 06/26/17 03:15 MCHC 31.1 g/dL (31.6-35.5) L 06/26/17 03:15 RDW 15.1 % (11.5-14.5) H 06/26/17 03:15 MPV 13.3 fL (9.4-12.4) H 06/26/17 03:15 Neutrophils # 12.8 K/mcL (1.6-8.9) H 06/26/17 03:15 Lymphocytes # 0.5 K/mcL (0.6-4.6) L 06/26/17 03:15 Nucleated RBCs/100 WBC 0.1 /100 WBC (0) H 06/26/17 03:15 ABG pH 7.30 pH Units (7.32-7.45) L 06/26/17 04:46 ABG pCO2 71 mmHg (35-45) H* 06/26/17 04:46 ABG pO2 109 mmHg (85-104) H 06/26/17 04:46 ABG HCO3 35 mEq/L (21-27) H 06/26/17 04:46 ABG Total CO2 37 mEq/L (20-26) H 06/26/17 04:46 ABG Base Excess 6 mEq/L (-2 to 3) H 06/26/17 04:46 Sodium 135 mEq/L (136-145) L 06/26/17 03:15 Potassium 5.3 mEq/L (3.5-5.1) H 06/26/17 03:15 Carbon Dioxide 30 mEq/L (23-29) H 06/26/17 03:15 BUN 48 mg/dL (8-23) H 06/26/17 03:15 Creatinine 1.47 mg/dL (0.70-1.30) H 06/26/17 03:15 Est GFR ( Amer) 59 (> 60) L 06/26/17 03:15 Est GFR (Non-Af Amer) 49 (> 60) L 06/26/17 03:15 BUN/Creatinine Ratio 33 (6-26) H 06/26/17 03:15 Glucose 276 mg/dL (70-105) H 06/26/17 03:15 POC Glucose 246 (58-89) H 06/26/17 00:32 Calculated Osmolality 302 (280-300) H 06/26/17 03:15 Calcium 8.5 mg/dL (8.6-10.3) L 06/26/17 03:15 Phosphorus 4.7 mg/dL (2.7-4.5) H 06/25/17 00:15 B-Natriuretic Peptide 258 pg/mL (Less than 100) H 06/25/17 01:13 - Microbiology Findings Microbiology Findings: Microbiology, Last 48 Hours 06/25/17 09:00 Legionella Antigen - Final Urine,Clean Catch Streptococcus pneumoniae Antigen (M - Final - Clinical Findings Intake & Output: Intake & Output 06/25/17 06/26/17 06/26/17 23:59 07:59 15:59 Intake Total 944 / 944 1101 / 1101 250 / 250 Output Total 1100 / 1100 575 / 575 225 / 225 Balance -156 / -156 526 / 526
[2017-06-26] MEDS ORDERED: 0.9 % Sodium Chloride 500 ML IVC ONE (09:41)
[2017-06-26 09:43] LABS: Estimated Average Glucose 154 mg/dl
[2017-06-26] MEDS ORDERED: Aminoglycoside Consult 1 EACH MC ONE (12:24)
[2017-06-26 14:37] LABS: BUN/Creatinine Ratio 42 (6-26); Blood Urea Nitrogen 49 mg/dL (8-23); Calcium 8.7 mg/dL (8.6-10.3); Carbon Dioxide 32 mEq/L (23-29); Chloride 100 mEq/L (98-107); Glucose 227 mg/dL (70-105); Osmolality,Calculated 304 (280-300); Potassium 4.4 mEq/L (3.5-5.1); Sodium 137 mEq/L (136-145); eGFR For African Americans > 60 (> 60); eGFR For Non-African Americans > 60 (> 60)
[2017-06-27] MEDS: Ipratropium/Albuterol Neb 3 ML IH SCH ×4 (03:25→22:30)
[2017-06-27 03:26] LABS: Basophils % 0.1 %; Hematocrit 36.5 % (37.5-50.1); Hemoglobin 11.7 g/dL (12.9-16.9); Immature Granulocytes % 0.4 % (0-4); Lymphocytes # 0.8 K/mcL (0.6-4.6); Lymphocytes % 8.8 %; Mean Corpuscular HGB Conc 32.1 g/dL (31.6-35.5); Mean Corpuscular Volume 90.6 fL (83.0-100.0); Mean Platelet Volume 12.6 fL (9.4-12.4); Monocytes # 0.3 K/mcL (0.0-1.3); Monocytes % 3.2 %; Neutrophils # 8.2 K/mcL (1.6-8.9); Platelet Count 161 K/mcL (140-400); Red Blood Count 4.03 M/mcL (4.19-5.50); Red Cell Distribution Width 15.5 % (11.5-14.5); Segmented Neutrophils % 87.5 %
[2017-06-27 03:41] LABS: BUN/Creatinine Ratio 53 (6-26); Blood Urea Nitrogen 54 mg/dL (8-23); Calcium 8.7 mg/dL (8.6-10.3); Carbon Dioxide 32 mEq/L (23-29); Chloride 102 mEq/L (98-107); Glucose 181 mg/dL (70-105); Osmolality,Calculated 307 (280-300); Potassium 4.6 mEq/L (3.5-5.1); Sodium 139 mEq/L (136-145); eGFR For African Americans > 60 (> 60); eGFR For Non-African Americans > 60 (> 60)
[2017-06-27 04:26] LABS: ABG Base Excess 7 mEq/L (-2 to 3); ABG HCO3 34 mEq/L (21-27); ABG Oxygen Saturation 97 % (95-98); ABG PCO2 56 mmHg (35-45); ABG PH 7.39 pH Units (7.32-7.45); ABG PO2 90 mmHg (85-104); ABG TCO2 36 mEq/L (20-26); Blood Gas Modality VC; Blood Gas PEEP 8 cm H2O; Blood Gas Respiration Rate 22; Blood Gas VT 500 cc
[2017-06-27] MEDS: Cefepime HCl 2,000 MG in Water for inj. (sterile) 20 ML 20 ML IVPB SCH ×2 (05:38→17:28)
[2017-06-27] MEDS: MethylPREDNISolone 40 MG/ML VIAL IVP SCH ×2 (05:38→17:28)
[2017-06-27] MEDS: *HR* Heparin 5,000 UNIT/ML VIAL SQ SCH ×3 (05:39→21:44)
[2017-06-27] MEDS: Insulin LISPRO 300 UNITS/3 ML VIAL SQ SCH ×4 (05:39→23:25)
[2017-06-27] MEDS: FentaNYL (PF) 1,000 MCG in 0.9 % Sodium Chloride 80 ML IVC SCH (05:48)
[2017-06-27] MEDS ORDERED: Midazolam HCl 100 MG in 0.9 % Sodium Chloride 80 ML IVC SCH (06:00)
[2017-06-27] MEDS: Lacri-Lube 3.5 GM TUBE BOTH EYES SCH ×2 (07:14→08:38)
[2017-06-27 07:48] LABS: Mycoplasma pneumoniae IgG 0.67 U/L (<=0.09)
[2017-06-27] MEDS: Azithromycin 500 MG in D5% in Water 250 ML IVPB SCH (08:24)
[2017-06-27] MEDS: Pantoprazole 40 MG VIAL IVP SCH (08:24)
[2017-06-27] MEDS: Furosemide 20 MG/2 ML VIAL IVP SCH (08:24)
[2017-06-27] MEDS: Chlorhexidine Rinse 15 ML MOUTHWASH MM SCH (08:24)
--- NOTE | 2017-06-27 09:32 | Pulmonology Progress Note ---
<Naveen Cronin - Last Filed: 06/27/17 13:22> Date of Encounter: 06/27/17 Time of Encounter: 09:32 Assessment and Plan (1) Acute on chronic respiratory failure with hypoxia and hypercapnia Current Visit: Yes Status: Acute - Acute respiratory failure likely secondary to COPD exacerbation with possible underlying pneumonia. - Patient has been hospitalized multiple times in the past 6 months for COPD exacerbations and pneumonia - Arterial blood gas revealed a respiratory acidosis with incomplete metabolic compensation, improved today - Vital signs have been stable and patient is nonseptic appearing. - WBC wnl today at 9.4, Vitals are stable. - Chest x-ray showing a left lung infiltrate Plan - Patient successfully extubated this morning at 1000. Will monitor closely - Further management as below. (2) Acute exacerbation of chronic obstructive airways disease Current Visit: Yes Status: Acute - History of severe COPD per chart review and patient's fiance - Multiple admissions in the past for COPD exacerbations - Extubated this morning successfully. Currently tolerating BiPAP - Respiratory panel was negative for viral infection - Has received duonebs, azithromycin (3 days), cefepime (3 days), vancomycin (2 days), solumedrol Plan - Will deescalate solumedrol to 40 mg q12 hours from q6 - Continue DuoNeb nebs, antibiotics. Will discontinue azithromycin today and vancomycin with last dose of yesterday - Abx day #3 (3) HCAP (healthcare-associated pneumonia) Current Visit: Yes Status: Acute - Chest x-ray on admission showed left lower lung infiltrate - Patient with septic on arrival with pulse 111, respirations 26, WBC of 14.8 - He was started on vancomycin, cefepime, azithromycin - Multiple admissions in the past 6 months to this facility - Currently he is aseptic, afebrile vital signs within acceptable limits - Blood cultures and sputum cultures pending, negative preliminary results. Plan - Continue cefepime as above day #3 - Weaned from ventilator. Attempt to deescalate from BiPAP as tolerated. - Follow up on blood cultures (4) Hypotension Current Visit: Yes Status: Resolved - Patient has been mildly hypotensive since presentation,however much improved today - Most recent BP of 151/98 - Weaning sedation after extubation this morning - This may be secondary to sedation versus septic process vs adrenal insufficiency - Patient has been tolerating this blood pressure and it is improving after receiving albumin - I did discuss the possibility of central venous access with con and she states that he has discussed wanting everything done at previous admission Plan - We will continue to monitor - Careful monitoring with low threshold for central venous line and pressor support Qualifiers: Hypotension type: unspecified hypotension type Qualified Code(s): I95.9 - Hypotension, unspecified (5) Hyperkalemia Current Visit: Yes Status: Acute - Potassium of 4.6 most recently, which is improved from yesterday (5.3) - Etiology unclear at this time however may be secondary to acidosis, decrease arterial blood volume, possible adrenal insufficiency - He has received Kayexalate, insulin, albuterol - No EKG changes at this time - Renal function stable with most recent . - Cosyntropin test revealing adrenal insufficiency, however patient has been stable and electrolytes are improving so we will not give stress dose steroids at this time and monitor. - Echo showing EF 55% and mild diastolic dysfunction Plan - Continue to monitor at this time. - Repeat Kayexalate and albuterol as needed - Low threshold to get nephrology involved if remains elevated (6) Type 2 diabetes mellitus Current Visit: Yes Status: Chronic - Blood sugar of 181 most recently - A1c of 7.0% this morning. - Sliding scale insulin at moderate. Better controlled Qualifiers: Diabetes mellitus senior care insulin use: without senior care use Diabetes mellitus complication status: with unspecified complications Qualified Code(s) : E11.8 - Type 2 diabetes mellitus with unspecified complications (7) Adrenal insufficiency Current Visit: Yes Status: Acute - Cosyntropin stimulation test performed suggestive of adrenal insufficiency - This is possibly secondary to frequent COPD exacerbations requiring steroid use and now patient is acutely ill and stressed - He has been receiving SOlumedrol 40mg [id number] for COPD, will decrease to q12 hours today - [place] Hypotensive with hyperkalemia since admission however is improving in both - Most recent K of 4.6, BP of 151/98 Plan - Monitor at this time and continue current regimen - Treat hyperkalemia as above. - Closely monitor BP for changes. (8) DVT prophylaxis Current Visit: Yes Status: Acute Heparin 5000 units every 8 hours Subjective Principal diagnosis: Acute respiratory failure Interval history: Patient was seen and examined this morning at bedside. He remains intubated however he is alert and responds to commands. When asked if he is ready to liberate from intubation, he shakes his head yes. He expresses no concerns at this time. Objective PUL Vital signs: Last Vital Signs Temp 98.9 F 06/27/17 08:00 Pulse 78 06/27/17 09:00 Resp 15 06/27/17 09:05 BP 139/75 06/27/17 09:05 Pulse Ox 95 06/27/17 09:05 Gen.: Vitals noted. No acute distress. Intubated but responsive to commands. Alert. HEENT: PERRL/EOMI, Normocephalic, atraumatic Cardiac: RRR, no murmur, +S1/S2 Pulmonary: Mild rales in bases, otherwise CTA bilaterally, no wheezes, or rhonchi, equal chest expansion Abdomen: soft, nontender, BS noted, no guarding Extremities: no BLE edema, nontender calf, no cyanosis or clubbing Neuro: Alert, follows commands. Psych: Appropriate mood and behavior Ventilator Settings Ventilator Settings: Ventilator Settings, Last 8 Hours Ventilator Mode CPAP Ventilator Mode CPAP Ventilator Mode VC+ Ventilator Mode VC+ Ventilator Mode VC+ Ventilator Mode VC+ Ventilator Mode VC+ Ventilator Mode VC+ Ventilator Mode VC+ Ventilator Mode VC+ Ventilator Mode VC+ Ventilator Mode VC+ Ventilator Mode VC+ Ventilator Tidal Volume 500 Setting Ventilator Tidal Volume 500 Setting Ventilator Tidal Volume 500 Setting Ventilator Tidal Volume 500 Setting Ventilator Tidal Volume 500 Setting Ventilator Tidal Volume 500 Setting Ventilator Tidal Volume 500 Setting Ventilator Tidal Volume 500 Setting Ventilator Tidal Volume 500 Setting Ventilator Tidal Volume 500 Setting Ventilator Tidal Volume 500 Setting Ventilator Tidal Volume 500 Setting Ventilator Respiratory Rate 22 Setting Ventilator Respiratory Rate 22 Setting Ventilator Respiratory Rate 22 Setting Ventilator Respiratory Rate 22 Setting Ventilator Respiratory Rate 22 Setting Ventilator Respiratory Rate 22 Setting Ventilator Respiratory Rate 22 Setting Ventilator Respiratory Rate 22 Setting Ventilator Respiratory Rate 22 Setting Ventilator Respiratory Rate 22 Setting Ventilator Respiratory Rate 22 Setting Actual Respiratory Rate 15 Actual Respiratory Rate 22 Actual Respiratory Rate 22 Actual Respiratory Rate 22 Actual Respiratory Rate 225 Actual Respiratory Rate 225 Actual Respiratory Rate 28 Actual Respiratory Rate 28 Actual Respiratory Rate 22 Actual Respiratory Rate 22 Positive End Expiratory 5 Pressure Positive End Expiratory 5 Pressure Positive End Expiratory 5 Pressure Positive End Expiratory 8 Pressure Positive End Expiratory 8 Pressure Positive End Expiratory 8 Pressure Positive End Expiratory 8 Pressure Positive End Expiratory 8 Pressure Positive End Expiratory 8 Pressure Positive End Expiratory 8 Pressure Positive End Expiratory 8 Pressure Positive End Expiratory 8 Pressure Peak Inspiratory Airway 11 Pressure Peak Inspiratory Airway 21 Pressure Peak Inspiratory Airway 25 Pressure Peak Inspiratory Airway 25 Pressure Peak Inspiratory Airway 25 Pressure Peak Inspiratory Airway 28 Pressure Peak Inspiratory Airway 28 Pressure Peak Inspiratory Airway 2,420 Pressure Peak Inspiratory Airway 24 Pressure Results - Laboratory Findings CBC and BMP: 06/27/17 02:52 06/27/17 02:52 ABG ABG pH 7.39 pH Units (7.32-7.45) 06/27/17 04:23 ABG pCO2 56 mmHg (35-45) H 06/27/17 04:23 ABG pO2 90 mmHg (85-104) 06/27/17 04:23 ABG O2 Saturation 97 % (95-98) 06/27/17 04:23 PT/INR, D-dimer PT 10.6 Seconds (9.4-12.1) 06/25/17 00:15 Abnormal lab findings: Abnormal lab results RBC 4.03 M/mcL (4.19-5.50) L 06/27/17 02:52 Hgb 11.7 g/dL (12.9-16.9) L 06/27/17 02:52 Hct 36.5 % (37.5-50.1) L 06/27/17 02:52 RDW 15.5 % (11.5-14.5) H 06/27/17 02:52 MPV 12.6 fL (9.4-12.4) H 06/27/17 02:52 Nucleated RBCs/100 WBC 0.1 /100 WBC (0) H 06/26/17 03:15 ABG pCO2 56 mmHg (35-45) H 06/27/17 04:23 ABG HCO3 34 mEq/L (21-27) H 06/27/17 04:23 ABG Total CO2 36 mEq/L (20-26) H 06/27/17 04:23 ABG Base Excess 7 mEq/L (-2 to 3) H 06/27/17 04:23 Carbon Dioxide 32 mEq/L (23-29) H 06/27/17 02:52 BUN 54 mg/dL (8-23) H 06/27/17 02:52 BUN/Creatinine Ratio 53 (6-26) H 06/27/17 02:52 Glucose 181 mg/dL (70-105) H 06/27/17 02:52 POC Glucose 194 (58-89) H 06/26/17 23:40 Hemoglobin A1c 7.0 % (-5.6) H 06/26/17 03:15 Calculated Osmolality 307 (280-300) H 06/27/17 02:52 Phosphorus 4.7 mg/dL (2.7-4.5) H 06/25/17 00:15 B-Natriuretic Peptide 258 pg/mL (Less than 100) H 06/25/17 01:13 Vancomycin Trough 23.5 mcg/mL (10-20) H* 06/26/17 13:54 Mycoplasma pneumon IgG 0.67 U/L (<=0.09) H 06/25/17 03:45 - Microbiology Findings Microbiology Findings: Microbiology, Last 48 Hours 06/25/17 09:00 Legionella Antigen - Final Urine,Clean Catch Streptococcus pneumoniae Antigen (M - Final - Clinical Findings Intake & Output: Intake & Output 06/26/17 06/27/17 06/27/17 23:59 07:59 15:59 Intake Total 429 / 429 367 / 367 Output Total 700 / 700 400 / 400 300 / 300 Balance -271 / -271 -33 / -33 -300 / -300 Consult Discharge Plan - Plan Referrals: NONE,PCP [Non-Partnered Physician] - <Scott Sánchez W - Last Filed: 06/27/17 15:50> Date of Encounter: 06/27/17 Objective PUL Vital signs: Last Vital Signs Temp 99.2 F 06/27/17 12:00 Pulse 70 06/27/17 15:00 Resp 13 06/27/17 15:14 BP 133/80 06/27/17 15:14 Pulse Ox 95 06/27/17 15:14 Ventilator Settings Ventilator Settings: Ventilator Settings, Last 8 Hours Ventilator Mode CPAP Ventilator Mode CPAP Ventilator Mode CPAP Ventilator Mode CPAP Ventilator Mode VC+ Ventilator Tidal Volume 500 Setting Ventilator Tidal Volume 500 Setting Ventilator Tidal Volume 500 Setting Ventilator Respiratory Rate 22 Setting Actual Respiratory Rate 15 Actual Respiratory Rate 22 Positive End Expiratory 5 Pressure Positive End Expiratory 5 Pressure Positive End Expiratory 5 Pressure Positive End Expiratory 5 Pressure Peak Inspiratory Airway 11 Pressure Results - Laboratory Findings CBC and BMP: 06/27/17 02:52 06/27/17 02:52 ABG ABG pH 7.39 pH Units (7.32-7.45) 06/27/17 04:23 ABG pCO2 56 mmHg (35-45) H 06/27/17 04:23 ABG pO2 90 mmHg (85-104) 06/27/17 04:23 ABG O2 Saturation 97 % (95-98) 06/27/17 04:23 PT/INR, D-dimer PT 10.6 Seconds (9.4-12.1) 06/25/17 00:15 Abnormal lab findings: Abnormal lab results RBC 4.03 M/mcL (4.19-5.50) L 06/27/17 02:52 Hgb 11.7 g/dL (12.9-16.9) L 06/27/17 02:52 Hct 36.5 % (37.5-50.1) L 06/27/17 02:52 RDW 15.5 % (11.5-14.5) H 06/27/17 02:52 MPV 12.6 fL (9.4-12.4) H 06/27/17 02:52 Nucleated RBCs/100 WBC 0.1 /100 WBC (0) H 06/26/17 03:15 ABG pCO2 56 mmHg (35-45) H 06/27/17 04:23 ABG HCO3 34 mEq/L (21-27) H 06/27/17 04:23 ABG Total CO2 36 mEq/L (20-26) H 06/27/17 04:23 ABG Base Excess 7 mEq/L (-2 to 3) H 06/27/17 04:23 Carbon Dioxide 32 mEq/L (23-29) H 06/27/17 02:52 BUN 54 mg/dL (8-23) H 06/27/17 02:52 BUN/Creatinine Ratio 53 (6-26) H 06/27/17 02:52 Glucose 181 mg/dL (70-105) H 06/27/17 02:52 POC Glucose 194 (58-89) H 06/26/17 23:40 Hemoglobin A1c 7.0 % (-5.6) H 06/26/17 03:15 Calculated Osmolality 307 (280-300) H 06/27/17 02:52 Phosphorus 4.7 mg/dL (2.7-4.5) H 06/25/17 00:15 B-Natriuretic Peptide 258 pg/mL (Less than 100) H 06/25/17 01:13 Vancomycin Trough 23.5 mcg/mL (10-20) H* 06/26/17 13:54 Mycoplasma pneumon IgG 0.67 U/L (<=0.09) H 06/25/17 03:45 - Microbiology Findings Microbiology Findings: Microbiology, Last 48 Hours 06/25/17 09:00 Legionella Antigen - Final Urine,Clean Catch Streptococcus pneumoniae Antigen (M - Final - Clinical Findings Intake & Output: Intake & Output 06/26/17 06/27/17 06/27/17 23:59 07:59 15:59 Intake Total 429 / 429 367 / 367 67 / 67 Output Total 700 / 700 400 / 400 1600 / 1600 Balance -271 / -271 -33 / -33 -1533 / -1533 - Attending Attestation I examined this patient and my medical decision-making was reviewed with the Resident Physician. I agree with the documented findings, disposition and treatment plan as described except to the extent set forth below. We independently had [id number] contact with the patient Patient seen and examined at bedside Labs, radiology, chart personally reviewed. Management was reviewed during multidisciplinary critical care rounds. 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 Patient had troponin elevation secondary to demand ischemia continue to monitor FEN-GI: Advance diet as tolerated after his bedside speech and swallow evaluation Renal: Urine output monitored bump in serum creatinine yesterday has normalized goal that negative volume status continue to monitor electrolytes Y actively diuresing. Noted hyperkalemia on admission Potassium level trending down ID: On antibiotics for pneumonia with plan to de-escalate based upon cultures Heme/Onc: DVT prophylaxis given Endo: Glucose Monitored Integ/MSK: Skin Care per routine ICU Nursing Protocol to prevent ulcers. Lines: All lines examined without evidence of infection : Dispo: Remain in ICU today [facility] CODE: Full
--- NOTE | 2017-06-27 14:43 | Electrocardiograph Report ---
[place] [id number] Test Date: 2017-06-25 Pat Name: Сергей Glasgow Department: 109 Room: [facility] Gender: M Mobility Manager: : [id number] Requested By: Krystyna Alcazar Order Number: [id number] Reading MD: Marcelo Rasmussen DO Measurements Intervals [place] Rate: 60 P: 76 TX: 189 QRS: 75 QRSD: 91 T: 55 QT: 429 QTc: 429 Interpretive Statements SINUS RHYTHM WITH SINUS ARRHYTHMIA LOW QRS VOLTAGE IN PRECORDIAL LEADS Electronically Signed On 06-27-2017 14:42:24 EDT by Marcelo Rasmussen DO
[2017-06-28] MEDS ORDERED: *HR* LORazepam 2 MG/ML VIAL IVP ONE (03:17)
[2017-06-28 03:23] LABS: Basophils % 0.1 %; Hematocrit 39.5 % (37.5-50.1); Hemoglobin 12.7 g/dL (12.9-16.9); Immature Granulocytes % 0.4 % (0-4); Lymphocytes # 1.2 K/mcL (0.6-4.6); Lymphocytes % 11.4 %; Mean Corpuscular HGB Conc 32.2 g/dL (31.6-35.5); Mean Corpuscular Hemoglobin 28.8 pg (28.0-33.3); Mean Corpuscular Volume 89.6 fL (83.0-100.0); Mean Platelet Volume 12.2 fL (9.4-12.4); Monocytes # 0.5 K/mcL (0.0-1.3); Monocytes % 4.8 %; Neutrophils # 8.4 K/mcL (1.6-8.9); Platelet Count 167 K/mcL (140-400); Red Blood Count 4.41 M/mcL (4.19-5.50); Red Cell Distribution Width 15.5 % (11.5-14.5); Segmented Neutrophils % 83.3 %
[2017-06-28 03:44] LABS: BUN/Creatinine Ratio 60 (6-26); Blood Urea Nitrogen 50 mg/dL (8-23); Calcium 9.2 mg/dL (8.6-10.3); Carbon Dioxide 36 mEq/L (23-29); Chloride 99 mEq/L (98-107); Glucose 133 mg/dL (70-105); Osmolality,Calculated 305 (280-300); Potassium 4.5 mEq/L (3.5-5.1); Sodium 140 mEq/L (136-145); eGFR For African Americans > 60 (> 60); eGFR For Non-African Americans > 60 (> 60)
[2017-06-28] MEDS: Ipratropium/Albuterol Neb 3 ML IH SCH ×5 (04:21→22:22)
[2017-06-28] MEDS: Insulin LISPRO 300 UNITS/3 ML VIAL SQ SCH ×4 (06:13→22:10)
[2017-06-28] MEDS: *HR* Heparin 5,000 UNIT/ML VIAL SQ SCH ×3 (06:14→21:58)
[2017-06-28] MEDS: Cefepime HCl 2,000 MG in Water for inj. (sterile) 20 ML 20 ML IVPB SCH ×2 (06:14→17:41)
[2017-06-28] MEDS: MethylPREDNISolone 40 MG/ML VIAL IVP SCH (06:15)
[2017-06-28] MEDS ORDERED: ALPRAZolam 1 MG TABLET PO PRN (08:16)
--- NOTE | 2017-06-28 08:34 | Pulmonology Progress Note ---
Date of Encounter: 06/28/17 Time of Encounter: 08:34 Assessment and Plan (1) Acute on chronic respiratory failure with hypoxia and hypercapnia Current Visit: Yes Status: Acute This is secondary to a combination of pneumonia and COPD exacerbation and hydrostatic pulmonary edema Overall appears to be resolving is being weaned down to oxine mask delivery of supplement O2 plan to decrease further to nasal cannula Recommend use of positive airway pressure at night while inpatient (2) Sleep-disordered breathing Current Visit: Yes Status: Acute (3) Acute exacerbation of chronic obstructive airways disease Current Visit: Yes Status: Acute Improving continue bronchodilators transitioned from IV to by mouth steroids complete two-week taper (4) Hyperkalemia Current Visit: Yes Status: Acute This is resolved I have switched blood pressure medications from ARB to beta daphnie and calcium channel daphnie may also be complicated by mild underlying adrenal insufficiency suspected from exogenous steroid use (5) Essential hypertension Current Visit: Yes Status: Chronic Blood pressure elevated today I have adjusted his blood pressure medications including adding metoprolol and amlodipine holding Cozaar hydralazine when necessary for blood pressure systolic greater than 140 (6) Anxiety Current Visit: Yes Status: Acute He has home use of chronic benzodiazepine I restarted his alprazolam 1 mg 3 times a day (7) (HFpEF) heart failure with preserved ejection fraction Current Visit: Yes Status: Acute Appears volume overloaded with evidence of hydrostatic pulmonary edema continue blood pressure control and diuretic (8) DVT prophylaxis Current Visit: Yes Status: Acute Per routine Subjective Principal diagnosis: Acute respiratory failure Interval history: Mr Glasgow has done well overnight. He wore Bipap for most of the night but was weaned down to Oxymask today still with excellent saturation. Says that his breathing status is nearing baseline. Denies pain. Vitals noteable for increasing BP overnight. Objective PUL Vital signs: Last Vital Signs Temp 98.9 F 06/28/17 07:00 Pulse 77 06/28/17 08:00 Resp 19 06/28/17 07:00 BP 163/100 06/28/17 07:00 Pulse Ox 94 06/28/17 07:00 General appearance: no acute distress Eyes: nonicteric ENT: oropharynx moist Effort: normal Auscultation: bilateral: diminished breath sounds, rales Cardiovascular: regular rate and rhythm Gastrointestinal: normoactive bowel sounds Integumentary: normal Extremities: edema non-focal exam mood appropriate Results - Laboratory Findings CBC and BMP: 06/28/17 03:03 06/28/17 03:03 ABG ABG pH 7.39 pH Units (7.32-7.45) 06/27/17 04:23 ABG pCO2 56 mmHg (35-45) H 06/27/17 04:23 ABG pO2 90 mmHg (85-104) 06/27/17 04:23 ABG O2 Saturation 97 % (95-98) 06/27/17 04:23 PT/INR, D-dimer PT 10.6 Seconds (9.4-12.1) 06/25/17 00:15 Abnormal lab findings: Abnormal lab results Hgb 12.7 g/dL (12.9-16.9) L 06/28/17 03:03 RDW 15.5 % (11.5-14.5) H 06/28/17 03:03 Nucleated RBCs/100 WBC 0.1 /100 WBC (0) H 06/26/17 03:15 ABG pCO2 56 mmHg (35-45) H 06/27/17 04:23 ABG HCO3 34 mEq/L (21-27) H 06/27/17 04:23 ABG Total CO2 36 mEq/L (20-26) H 06/27/17 04:23 ABG Base Excess 7 mEq/L (-2 to 3) H 06/27/17 04:23 Carbon Dioxide 36 mEq/L (23-29) H 06/28/17 03:03 BUN 50 mg/dL (8-23) H 06/28/17 03:03 BUN/Creatinine Ratio 60 (6-26) H 06/28/17 03:03 Glucose 133 mg/dL (70-105) H 06/28/17 03:03 POC Glucose 195 (58-89) H 06/27/17 23:20 Hemoglobin A1c 7.0 % (-5.6) H 06/26/17 03:15 Calculated Osmolality 305 (280-300) H 06/28/17 03:03 Phosphorus 4.7 mg/dL (2.7-4.5) H 06/25/17 00:15 B-Natriuretic Peptide 258 pg/mL (Less than 100) H 06/25/17 01:13 Vancomycin Trough 23.5 mcg/mL (10-20) H* 06/26/17 13:54 Mycoplasma pneumon IgG 0.67 U/L (<=0.09) H 06/25/17 03:45 - Clinical Findings Intake & Output: Intake & Output 06/27/17 06/28/17 06/28/17 23:59 07:59 15:59 Intake Total Output Total 1000 / 1000 2200 / 2200 Balance -980 / -980 -2180 / -2180 Weight 118.9 kg Consult Discharge Plan - Plan Referrals: NONE,PCP [Non-Partnered Physician] - - Attending Attestation Stable for transfer to [facility] for ongoing care case discussed with Dr. Alcazar the admitting hospitalist who kindly accepted the patient in transfer Disposition Disposition: Still a Patient Referrals: NONE,PCP [Non-Partnered Physician] -
[2017-06-28] MEDS: Pantoprazole 40 MG VIAL IVP SCH (08:56)
[2017-06-28] MEDS: Furosemide 20 MG/2 ML VIAL IVP SCH (08:56)
[2017-06-28] MEDS ORDERED: amLODIPine 5 MG TABLET PO SCH (09:00)
[2017-06-28] MEDS ORDERED: predniSONE 20 MG TABLET PO SCH (09:30)
[2017-06-28] MEDS ORDERED: Dextrose Gel 15 GM/37.5 ML TUBE PO PRN ×2 (10:59)
[2017-06-28] MEDS ORDERED: *HR* Dextrose 50 % in Water (Syg) 50 ML SYRINGE IVP PRN (10:59)
[2017-06-28] MEDS ORDERED: D5% in Water 1,000 ML IVC PRN (10:59)
[2017-06-28] MEDS ORDERED: Ipratropium/Albuterol Neb 3 ML IH PRN (10:59)
[2017-06-28] MEDS ORDERED: Insulin LISPRO 300 UNITS/3 ML VIAL SQ SCH (12:00)
[2017-06-28] MEDS: ALPRAZolam 1 MG TABLET PO PRN (21:58)
[2017-06-29] MEDS: Cefepime HCl 2,000 MG in Water for inj. (sterile) 20 ML 20 ML IVPB SCH ×2 (05:49→18:40)
[2017-06-29] MEDS: *HR* Heparin 5,000 UNIT/ML VIAL SQ SCH ×3 (05:50→21:49)
[2017-06-29] MEDS: ALPRAZolam 1 MG TABLET PO PRN ×3 (06:04→21:48)
[2017-06-29] MEDS: Ipratropium/Albuterol Neb 3 ML IH SCH ×3 (08:04→21:58)
[2017-06-29] MEDS: Insulin LISPRO 300 UNITS/3 ML VIAL SQ SCH ×4 (08:22→21:50)
[2017-06-29] MEDS: predniSONE 20 MG TABLET PO SCH (08:24)
[2017-06-29] MEDS: amLODIPine 5 MG TABLET PO SCH (08:24)
[2017-06-29] MEDS ORDERED: Furosemide 20 MG/2 ML VIAL IVP SCH (09:00)
--- NOTE | 2017-06-29 09:07 | Internal Med Progress Note ---
Date of Encounter: 06/29/17 Time of Encounter: 09:05 - Assessment and plan (1) (HFpEF) heart failure with preserved ejection fraction Current Visit: Yes Status: Acute Assessment and plan: We will switch to oral Lasix 40 mg daily. Strict I's and O's. We will discontinue Deras as the patient is no longer critical, he continues to require urinary output monitoring. (2) Acute exacerbation of chronic obstructive airways disease Current Visit: Yes Status: Acute Assessment and plan: On prednisone, inhaled bronchodilators and supplemental oxygen. We will continue this. (3) Acute on chronic respiratory failure with hypoxia and hypercapnia Current Visit: Yes Status: Acute Assessment and plan: Supplemental oxygen by nasal cannula to maintain oxygen saturation above 88%. (4) DVT prophylaxis Current Visit: Yes Status: Acute Assessment and plan: Subcutaneous heparin. (5) Sleep-disordered breathing Current Visit: Yes Status: Acute (6) Essential hypertension Current Visit: Yes Status: Chronic Assessment and plan: Continue metoprolol. (7) Type 2 diabetes mellitus Current Visit: Yes Status: Chronic Assessment and plan: Diabetic diet. Insulin sliding scale. Qualifiers: Diabetes mellitus snf insulin use: without snf use Diabetes mellitus complication status: with unspecified complications Qualified Code(s) : E11.8 - Type 2 diabetes mellitus with unspecified complications (8) HCAP (healthcare-associated pneumonia) Current Visit: Yes Status: Acute Assessment and plan: Initial chest x-ray on presentation was personally reviewed, showed patchy infiltrates concerning for pneumonia. He was treated with cefepime for 5 days. Initial white blood cell count was elevated. He responded to antibiotic treatment. We will continue this for 1 more day and planned to de-escalate. - Subjective Interval history: Patient was transferred from the intensive care unit yesterday after being treated for COPD exacerbation and respiratory failure. He reports that his shortness of breath has improved significantly, breathing back to baseline, denies associated cough and fever. He has been minimally ambulatory over the last 5 days and he still has a Deras catheter in place. He denies history of urinary frequency, hesitancy and dribbling. - Constitutional Vitals: Temp Pulse Resp BP Pulse Ox 97.9 F 54 16 140/85 96 06/29/17 07:03 06/29/17 07:03 06/29/17 07:03 06/29/17 07:03 06/29/17 07:03 General appearance: Present: cooperative, A&O X 3, no acute distress, obese, answers questions appropriately - Eye Eye exam: Present: PERRL, conjuntiva pink, sclera anicteric Pupils: Present: PERRL - Respiratory Respiratory exam: Present: decreased breath sounds, wheezes. Absent: accessory muscle use, rales, rhonchi - Cardiovascular Cardiovascular exam: Present: RRR, +S1, +S2. Absent: diastolic murmur, gallop, rubs, systolic murmur - GI/Abdominal GI/Abdominal exam: Present: normal bowel sounds, soft, no peritoneal signs. Absent: distended, tenderness - Neurological Exam Neurological exam: Present: CN II-XII intact, oriented X3, no focal deficits. Absent: facial droop, speech deficit - Skin Skin exam: Present: dry, intact Internal Medicine: Result - Labs CBC & Chem 7: 06/28/17 03:03 06/28/17 03:03 - ABG Interpretation ABG results: ABG ABG pH 7.39 pH Units (7.32-7.45) 06/27/17 04:23 ABG pCO2 56 mmHg (35-45) H 06/27/17 04:23 ABG pO2 90 mmHg (85-104) 06/27/17 04:23 ABG O2 Saturation 97 % (95-98) 06/27/17 04:23 PT/INR, D-dimer PT 10.6 Seconds (9.4-12.1) 06/25/17 00:15 Consult Discharge Plan - Plan Referrals: NONE,PCP [Non-Partnered Physician] -
[2017-06-29] MEDS ORDERED: Melatonin 3 MG TABLET PO PRN (23:48)
[2017-06-30 05:05] LABS: Basophils % 0.1 %; Eosinophils % 1.2 %; Hematocrit 39.8 % (37.5-50.1); Hemoglobin 13.3 g/dL (12.9-16.9); Immature Granulocytes % 0.5 % (0-4); Mean Corpuscular HGB Conc 33.4 g/dL (31.6-35.5); Mean Corpuscular Hemoglobin 29.2 pg (28.0-33.3); Mean Corpuscular Volume 87.5 fL (83.0-100.0); Mean Platelet Volume 11.9 fL (9.4-12.4); Monocytes % 7.3 %; Platelet Count 170 K/mcL (140-400); Red Blood Count 4.55 M/mcL (4.19-5.50); Red Cell Distribution Width 15.2 % (11.5-14.5); Segmented Neutrophils % 63.9 %
[2017-06-30 05:06] LABS: Eosinophils # 0.1 K/mcL (0.0-0.6); Lymphocytes # 2.9 K/mcL (0.6-4.6); Monocytes # 0.8 K/mcL (0.0-1.3); Neutrophils # 6.9 K/mcL (1.6-8.9)
[2017-06-30 05:22] LABS: BUN/Creatinine Ratio 53 (6-26); Blood Urea Nitrogen 46 mg/dL (8-23); Calcium 9.2 mg/dL (8.6-10.3); Carbon Dioxide 33 mEq/L (23-29); Chloride 96 mEq/L (98-107); Glucose 147 mg/dL (70-105); Osmolality,Calculated 297 (280-300); Sodium 136 mEq/L (136-145); eGFR For African Americans > 60 (> 60); eGFR For Non-African Americans > 60 (> 60)
[2017-06-30] MEDS: Cefepime HCl 2,000 MG in Water for inj. (sterile) 20 ML 20 ML IVPB SCH (05:30)
[2017-06-30] MEDS: *HR* Heparin 5,000 UNIT/ML VIAL SQ SCH (05:37)
[2017-06-30 07:26] VITALS: BP 109/71
[2017-06-30] MEDS: Insulin LISPRO 300 UNITS/3 ML VIAL SQ SCH (07:33)
[2017-06-30] MEDS: amLODIPine 5 MG TABLET PO SCH (08:23)
[2017-06-30] MEDS: predniSONE 20 MG TABLET PO SCH (08:23)
[2017-06-30] MEDS ORDERED: Furosemide 40 MG TABLET PO SCH (09:00)
--- NOTE | 2017-06-30 10:18 | Discharge Summary ---
- NOTES TO OUTPATIENT PROVIDER Notes to Outpatient Provider: Patient will need outpatient sleep study. Patient will need follow-up with pulmonology. Date of Encounter: 06/30/17 Time of Encounter: 10:11 - Discharge Diagnosis (1) (HFpEF) heart failure with preserved ejection fraction Priority: Secondary Status: Acute (2) Acute exacerbation of chronic obstructive airways disease Priority: Primary Status: Acute (3) Acute on chronic respiratory failure with hypoxia and hypercapnia Priority: Secondary Status: Acute (4) Sleep-disordered breathing Priority: Secondary Status: Acute (5) Essential hypertension Priority: Secondary Status: Chronic (6) Type 2 diabetes mellitus Priority: Secondary Status: Chronic Qualifiers: Diabetes mellitus intermodal dispatcher insulin use: without group home use Diabetes mellitus complication status: with unspecified complications Qualified Code(s) : E11.8 - Type 2 diabetes mellitus with unspecified complications (7) HCAP (healthcare-associated pneumonia) Priority: Secondary Status: Acute Hospital course: Mr. Glasgow is a 61 year old male with past medical history significant for COPD , chronic hypoxic respiratory failure, diabetes and hypertension presented to the hospital for difficulty breathing and low oxygen level. In the emergency department he was treated with positive pressure ventilation, IV antibiotics and steroids. His blood gas showed respiratory acidosis and hypercapnia. Chest x-ray revealed pulmonary congestion and possible pneumonia. He was admitted to the medical service. While on BiPAP his respiratory status declined and he was endotracheally intubated and placed on mechanical ventilation. He was transferred to the ICU. He continued to receive antibiotics, bronchodilators and steroids. He improved and he was successfully extubated. His supplemental oxygen has been titrated down to his baseline 2 L/ m. His respiratory status is now back to baseline. He has been able to ambulate to the bathroom and back. He denies shortness of breath at rest. Cough has resolved. He will be prescribed a prednisone taper and oral antibiotics and will be discharged home. He has a history of obstructive sleep apnea however he no longer uses CPAP and therefore he will be scheduled for an outpatient sleep study. He will be referred to pulmonology for follow-up. He was instructed to get an appointment with his PCP within 1 week of discharge. He verbalizes understanding and agreement with the plan. Discharge discussed with: patient Time spent discussing smoking cessation with patient: 3 to 10 minutes - Time Spent with Patient Total time spent providing and/or coordinating discharge services: Greater than 30 minutes - Discharge Medications Prescriptions: Furosemide [Lasix] 20 mg PO DAILY #5 tablet predniSONE [PredniSONE] 10 mg PO DAILY #35 tablet Home Medications: ALPRAZolam [Xanax 1 MG Tablet] 1 mg PO TID 06/25/17 [History] Albuterol Sulfate [Proair Hfa] 2 puff IH Q6H PRN 06/25/17 [History] Aloe Vera/Collagen [Aloe [place] Cleansing Foam] 1 appl TP DAILY 06/25/17 [History ] Aspirin [Lo-Dose Aspirin EC] 81 mg PO DAILY 06/25/17 [History] Baclofen [Lioresal] 10 mg PO TID PRN 06/25/17 [History] Budesonide/Formoterol 160/4.5 [Symbicort 160/4.5] 2 puff IH BIDR 06/25/17 [ History] Diclofenac Sodium [Voltaren] 75 mg PO BID PRN 06/25/17 [History] Ergocalciferol (VITAMIN D2) [Vitamin D2] 50,000 unit PO QWEEK 06/25/17 [History] Gabapentin [Neurontin] 800 mg PO QID 06/25/17 [History] Losartan Potassium [Cozaar] 50 mg PO DAILY 06/25/17 [History] Metformin HCl [Glucophage] 1,000 mg PO BID 06/25/17 [History] Mineral Oil/Petrolatum,White [Eucerin Creme] 1 appl TP BID PRN 06/25/17 [History ] Montelukast [Singulair] 10 mg PO DAILY 06/25/17 [History] Multivit-Min/FA/Lycopen/Lutein [A Thru Z Select Men 50+ Tablet] 1 tab PO DAILY 06/25/17 [History] Sildenafil Citrate 100 mg PO DAILY PRN 06/25/17 [History] Tiotropium [Spiriva] 1 puff IH DAILY 06/25/17 [History] Cefdinir [Omnicef] 300 mg PO BID #10 capsule 06/30/17 [Rx] Furosemide [Lasix] 20 mg PO DAILY #5 tablet 06/30/17 [Rx] predniSONE [PredniSONE] 10 mg PO DAILY #35 tablet 06/30/17 [Rx] Allergies/Adverse Reactions: 3 Allergy/AdvReac Type Severity Reaction Status Date / Time No Known Allergies Allergy Verified 06/25/17 00:44 Date of admission: 06/25/17 03:27 Primary care physician: Martin Schroeder MD Consults: 06/25/17 03:57 Consult to Pulmonology [CONS] Routine Consulting Provider: [facility] [place] Reason for Consult: COPD, pna, resp failure Call Completed: No 06/27/17 15:41 Consult to Occupational Therapy [CONS] Routine Comment: Evaluate, develop and implement POC Reason for Consult: s/p extubation Does patient have active BEDREST order?: No Is patient medically & hemodynamically stable?: Yes Patient assessed for mobility or mobilized this visit?: No Consult to Physical Therapy [CONS] Routine Comment: Evaluate, develop and implement POC Reason for Consult: s/p intubation, weakness Does patient have active BEDREST order?: No Is patient medically & hemodynamically stable?: Yes Patient assessed for mobility or mobilized this visit?: No - Constitutional Vitals: Temp Pulse Resp BP Pulse Ox 97.5 F L 54 14 109/71 94 06/30/17 07:25 06/30/17 07:25 06/30/17 07:25 06/30/17 07:25 06/30/17 08:25 General appearance: Present: cooperative, A&O X 3, no acute distress, obese, answers questions appropriately - Respiratory Respiratory exam: Present: CTAB. Absent: accessory muscle use, rales, rhonchi, wheezes - Cardiovascular Cardiovascular exam: Present: RRR, +S1, +S2. Absent: diastolic murmur, gallop, rubs, systolic murmur - GI/Abdominal GI/Abdominal exam: Present: normal bowel sounds, soft, no peritoneal signs. Absent: distended, tenderness - Patient Status Disposition: Home, Self-Care Condition: Good Functional capacity at discharge: uses cane/walker Overall status at discharge: patient is progressing back to baseline - Discharge Instructions Follow Up With: Martin Schroeder MD [Primary Care Provider] - 07/09/17 1:15 pm NONE,PCP [Non-Partnered Physician] - Scott Sánchez MD [Partnered Physician] - (Please call for appointment after sleep study completion.) - Diet and Activity Activity: as per physical therapy, increase activity as tolerated Diet: diabetic diet, low fat, low cholesterol, low salt diet
[2017-06-30] MEDS: Ipratropium/Albuterol Neb 3 ML IH SCH (10:40)
== END 2017-06-30 12:25 | disposition home or self-care (01) | DRG 208 ==
LOC: EMEROO 00:08 → ICNU 03:27 → SUATTDRO 03:27 → ICNU 03:55 → 3BNU 06-28 13:58
PROVIDERS: ADMIT Internal Medicine; ATTEND Internal Medicine

== ENCOUNTER 2017-12-28 18:48 | Inpatient (IN) ==
[2017-12-28] MEDS ORDERED: methylPREDNISolone 125 MG/2 ML VIAL IVP ONE (18:57)
[2017-12-28] MEDS ORDERED: Ipratropium/Albuterol Neb 3 ML IH ONE (18:57)
--- NOTE | 2017-12-28 18:57 | Emergency Department Note ---
Disposition Clinical Impression: Acute exacerbation of chronic obstructive airways disease, Healthcare- associated pneumonia Acute and chronic respiratory failure Qualifiers: Respiratory failure complication: hypoxia Qualified Code(s): J96.21 - Acute and chronic respiratory failure with hypoxia Disposition: Admitted As Inpatient Condition: Fair Time of Disposition: 22:33 SOB HPI - General Stated Complaint: NARCISA Time Seen by Provider: 12/28/17 18:50 Nursing Notes Reviewed: Yes Vital Signs Reviewed: Yes - History of Present Illness 62-year-old male presents from home via EMS for evaluation of shortness of breath. Patient's called the squad. Patient is not sure why she called as he feels fine. Per EMS, patient's pulse oxygen was in the low 70s on arrival with his baseline 2 L; this jumped to the mid 90s on 4 L nasal cannula. Patient does have dyspnea on exertion however, this is been ongoing for months and has no notable acute exacerbations of this. He is using his home breathing treatments. PMH: COPD with chronic respiratory failure on 2 L supplemental action nasal cannula continuous., diastolic congestive heart failure, obstructive sleep apnea , hypertension, type 2 diabetes. ROS: Positive: As above Negative: Fever, chills, nausea, vomiting, chest pain, palpitations, unusual back pain, abdominal pain, change in bowels, change in urination. He has had no change in his chronic cough. - Related Data Home Medications Medication Instructions Recorded Confirmed ALPRAZolam [Xanax 1 MG Tablet] 1 mg PO TID 06/25/17 06/25/17 Albuterol Sulfate [Proair Hfa] 2 puff IH Q6H PRN 06/25/17 06/25/17 Aloe Vera/Collagen [Aloe [place] 1 appl TP DAILY 06/25/17 06/25/17 Cleansing Foam] Aspirin [Lo-Dose Aspirin EC] 81 mg PO DAILY 06/25/17 06/25/17 Baclofen [Lioresal] 10 mg PO TID PRN 06/25/17 06/25/17 Budesonide/Formoterol 160/4.5 2 puff IH BIDR 06/25/17 06/25/17 [Symbicort 160/4.5] Diclofenac Sodium [Voltaren] 75 mg PO BID PRN 06/25/17 06/25/17 Ergocalciferol (VITAMIN D2) 50,000 unit PO QWEEK 06/25/17 06/25/17 [Vitamin D2] Gabapentin [Neurontin] 800 mg PO QID 06/25/17 06/25/17 Losartan Potassium [Cozaar] 50 mg PO DAILY 06/25/17 06/25/17 Metformin HCl [Glucophage] 1,000 mg PO BID 06/25/17 06/25/17 Mineral Oil/Petrolatum,White 1 appl TP BID PRN 06/25/17 06/25/17 [Eucerin Creme] Montelukast [Singulair] 10 mg PO DAILY 06/25/17 06/25/17 Multivit-Min/FA/Lycopen/Lutein [A 1 tab PO DAILY 06/25/17 06/25/17 Thru Z Select Men 50+ Tablet] Sildenafil Citrate 100 mg PO DAILY PRN 06/25/17 06/25/17 Tiotropium [Spiriva] 1 puff IH DAILY 06/25/17 06/25/17 Previous Rx's Medication Instructions Recorded Cefdinir [Omnicef] 300 mg PO BID #10 capsule 06/30/17 Furosemide [Lasix] 20 mg PO DAILY #5 tablet 06/30/17 predniSONE [PredniSONE] 10 mg PO DAILY #35 tablet 06/30/17 OxyCODONE/APAP 5/325 [Percocet 1 each PO Q4HR PRN 3 Days #10 08/26/17 5/325 MG] tablet Allergies Allergy/AdvReac Type Severity Reaction Status Date / Time No Known Allergies Allergy Verified 06/25/17 00:44 All systems ED: reviewed and negative except as stated. Review of Systems: As Per HPI Past Medical History - Past Medical History Medical history: Reports: COPD, diabetes, hyperlipidemia, hypertension Psychiatric history: Reports: anxiety - Social History Smoking Status: Former smoker Smokeless Tobacco Status: No Alcohol use: Reports: none Drug use: Reports: none Physical Exam Vital Signs Reviewed General: Patient is alert, oriented, and in no acute distress on 4 L nasal cannula. Head: atraumatic, normocephalic Eye: normal appearance, PERRL, EOMI, no scleral icterus, no conjunctival injection ENT: mucous membranes moist, normal external ear exam Neck: normal inspection, trachea midline, full ROM Chest: normal inspection, symmetric chest rise Respiratory: Poor respiratory effort. Prolonged expiratory phase. Poor air movement with diffuse wheeze; no crackles or rhonchi. Cardiovascular: Regular rate and rhythm. No clicks, rubs, gallops, or murmors. Normal heart sounds. Abdomen: Bowel sounds present normoactive x-4 quadrants. Abdomen is soft, nondistended, and nontender. No guarding or rebound. No organomegaly noted. Musculoskeletal: Spontaneously moving all extremities. Skin: warm, dry, intact. Neuro: Alert and oriented x4. Sensation light touch intact. Psych: Patient's affect is appropriate for situation. Course Course Narrative: Echocardiogram 06/14: EV/EV echocardiogram w enhance Impressions: LVEF 55%. Normal appearing LV chamber size, wall thickness and function with Definity. Mild left ventricular diastolic dysfunction. Right ventricle was not well visualized. In the subcostal view, it grossly appeared to demonstrate normal function. Valves not well visualized. Technically, very limited study due to poor images. Chart check shows patient was intubated secondary to respiratory failure secondary to healthcare associated pneumonia. Though our system shows patient has not been admitted last 3 months, patient believes that he has been admitted last 3 months. Workup pending. Until then, will provide triple dose of DuoNeb's as well as 125 mg IV Solumedrol. Chest x-ray concerning for bibasilar pneumonia. We will cover empirically for healthcare associated pneumonia. Patient's breathing is not improved after 3 doses of DuoNeb's. We will begin albuterol. He continues to require 4 L nasal cannula. EKG unremarkable. Discussed the patient with the admitting hospitalist, Dr. Jean Baptiste, who agrees to accept the patient for continued evaluation and management. EKG dated 12/28/2017 at 19:09 interpreted as sinus rhythm with rate of 99. VT 178, QTc 437. Normal axis. Nonspecific ST-T changes. Compared to previous EKG dated 11/09/2017 showing no acute ischemic changes comparison. Chest X-Ray 12/28/17 18:57 IMPRESSION: Findings suggestive of bibasilar pneumonitis, left greater than right. Probable small left pleural effusion. Correlation with upright PA and lateral chest may be useful for better characterization of pulmonary findings. D/ / Derek Choi / Derek Choi Interpreting Provider: Derek Choi Vital Signs Temperature 99.8 F H 12/28/17 18:52 Pulse Rate 100 12/28/17 18:52 Respiratory Rate 22 12/28/17 18:52 Blood Pressure 114/74 12/28/17 18:52 O2 Sat by Pulse Oximetry 87 12/28/17 18:52 Temperature 99.8 F H 12/28/17 21:57 Pulse Rate 93 12/28/17 21:57 Respiratory Rate 18 12/28/17 21:57 Blood Pressure 134/79 12/28/17 21:57 O2 Sat by Pulse Oximetry 93 12/28/17 21:57 Oxygen Delivery Oxygen Delivery Nasal Cannula Shortness of Breath/Dyspnea - Lab Data Result diagrams: 12/28/17 18:57 12/28/17 18:57 Lab Results 12/28/17 12/28/17 12/28/17 Range/Units 18:57 18:57 18:57 WBC 15.3 H (4.3-11.1) K/mcL RBC 4.71 (4.19-5.50) M/mcL Hgb 13.8 (12.9-16.9) g/dL Hct 42.6 (37.5-50.1) % MCV 90.4 (83.0-100.0) fL MCH 29.3 (28.0-33.3) pg MCHC 32.4 (31.6-35.5) g/dL RDW 13.8 (11.5-14.5) % Plt Count 182 (140-400) K/mcL MPV 13.2 H (9.4-12.4) fL Immature Gran % 1.0 (0-4) % Seg Neutrophils % 83.8 % Lymphocytes % 9.3 % Monocytes % 4.3 % Eosinophils % 0.9 % Basophils % 0.7 % Neutrophils # 12.8 H (1.6-8.9) K/mcL Lymphocytes # 1.4 (0.6-4.6) K/mcL Monocytes # 0.7 (0.0-1.3) K/mcL Eosinophils # 0.1 (0.0-0.6) K/mcL Basophils # 0.1 (0.0-0.2) K/mcL Sodium 132 L (136-145) mEq/L Potassium 5.6 H (3.5-5.1) mEq/L Chloride 95 L (98-107) mEq/L Carbon Dioxide 33 H (23-29) mEq/L BUN 30 H (8-23) mg/dL Creatinine 1.15 (0.70-1.30) mg/dL Est GFR ( Amer) > 60 (> 60) Est GFR (Non-Af Amer) > 60 (> 60) BUN/Creatinine Ratio 26 (6-26) Glucose 356 H (70-105) mg/dL Calculated Osmolality 294 (280-300) Lactic Acid (0.5-2.2) mmol/L Calcium 9.2 (8.6-10.3) mg/dL Troponin I < 0.03 (< 0.04) ng/mL B-Natriuretic Peptide 148 H (Less than 100) pg/mL 12/28/17 Range/Units 21:15 WBC (4.3-11.1) K/mcL RBC (4.19-5.50) M/mcL Hgb (12.9-16.9) g/dL Hct (37.5-50.1) % MCV (83.0-100.0) fL MCH (28.0-33.3) pg MCHC (31.6-35.5) g/dL RDW (11.5-14.5) % Plt Count (140-400) K/mcL MPV (9.4-12.4) fL Immature Gran % (0-4) % Seg Neutrophils % % Lymphocytes % % Monocytes % % Eosinophils % % Basophils % % Neutrophils # (1.6-8.9) K/mcL Lymphocytes # (0.6-4.6) K/mcL Monocytes # (0.0-1.3) K/mcL Eosinophils # (0.0-0.6) K/mcL Basophils # (0.0-0.2) K/mcL Sodium (136-145) mEq/L Potassium (3.5-5.1) mEq/L Chloride (98-107) mEq/L Carbon Dioxide (23-29) mEq/L BUN (8-23) mg/dL Creatinine (0.70-1.30) mg/dL Est GFR ( Amer) (> 60) Est GFR (Non-Af Amer) (> 60) BUN/Creatinine Ratio (6-26) Glucose (70-105) mg/dL Calculated Osmolality (280-300) Lactic Acid 1.5 (0.5-2.2) mmol/L Calcium (8.6-10.3) mg/dL Troponin I (< 0.04) ng/mL B-Natriuretic Peptide (Less than 100) pg/mL
[2017-12-28 20:05] LABS: Basophils # 0.1 K/mcL (0.0-0.2); Basophils % 0.7 %; Eosinophils # 0.1 K/mcL (0.0-0.6); Eosinophils % 0.9 %; Hematocrit 42.6 % (37.5-50.1); Hemoglobin 13.8 g/dL (12.9-16.9); Lymphocytes # 1.4 K/mcL (0.6-4.6); Lymphocytes % 9.3 %; Mean Corpuscular HGB Conc 32.4 g/dL (31.6-35.5); Mean Corpuscular Hemoglobin 29.3 pg (28.0-33.3); Mean Corpuscular Volume 90.4 fL (83.0-100.0); Mean Platelet Volume 13.2 fL (9.4-12.4); Monocytes # 0.7 K/mcL (0.0-1.3); Monocytes % 4.3 %; Neutrophils # 12.8 K/mcL (1.6-8.9); Platelet Count 182 K/mcL (140-400); Red Blood Count 4.71 M/mcL (4.19-5.50); Red Cell Distribution Width 13.8 % (11.5-14.5); Segmented Neutrophils % 83.8 %
[2017-12-28 20:26] LABS: BUN/Creatinine Ratio 26 (6-26); Blood Urea Nitrogen 30 mg/dL (8-23); Calcium 9.2 mg/dL (8.6-10.3); Carbon Dioxide 33 mEq/L (23-29); Chloride 95 mEq/L (98-107); Glucose 356 mg/dL (70-105); Osmolality,Calculated 294 (280-300); Potassium 5.6 mEq/L (3.5-5.1); Sodium 132 mEq/L (136-145); Troponin I < 0.03 ng/mL (< 0.04); eGFR For Non-African Americans > 60 (> 60)
[2017-12-28] MEDS ORDERED: Albuterol 2.5 MG/3 ML NEBULIZER IH ONE (20:49)
[2017-12-28] MEDS ORDERED: Piperacillin/Tazobactam 3.375 GM in 0.9 % Sodium Chloride Mini Bag 100 ML IVPB ONE ×2 (20:49→21:00)
[2017-12-28] MEDS ORDERED: Calcium Gluconate 2,000 MG in 0.9 % Sodium Chloride 100 ML IVPB ONE (21:02)
[2017-12-28] MEDS ORDERED: Insulin Regular, Human 100 UNIT/ML SQ ONE (21:03)
--- NOTE | 2017-12-28 21:16 | Emergency Department Note ---
Disposition Clinical Impression: Acute exacerbation of chronic obstructive airways disease, Healthcare- associated pneumonia Acute and chronic respiratory failure Qualifiers: Respiratory failure complication: hypoxia Qualified Code(s): J96.21 - Acute and chronic respiratory failure with hypoxia Disposition: Admitted As Inpatient Condition: Fair General Adult HPI - General Chief complaint: ED Shortness of Breath/Dyspnea Stated complaint: NARCISA Time Seen by Provider: 12/28/17 18:50 Source: patient Limitations: no limitations - History of Present Illness Pain Scale: 0 - Related Data Home Medications Medication Instructions Recorded Confirmed ALPRAZolam [Xanax 1 MG Tablet] 1 mg PO TID 06/25/17 06/25/17 Albuterol Sulfate [Proair Hfa] 2 puff IH Q6H PRN 06/25/17 06/25/17 Aloe Vera/Collagen [Aloe [place] 1 appl TP DAILY 06/25/17 06/25/17 Cleansing Foam] Aspirin [Lo-Dose Aspirin EC] 81 mg PO DAILY 06/25/17 06/25/17 Baclofen [Lioresal] 10 mg PO TID PRN 06/25/17 06/25/17 Budesonide/Formoterol 160/4.5 2 puff IH BIDR 06/25/17 06/25/17 [Symbicort 160/4.5] Diclofenac Sodium [Voltaren] 75 mg PO BID PRN 06/25/17 06/25/17 Ergocalciferol (VITAMIN D2) 50,000 unit PO QWEEK 06/25/17 06/25/17 [Vitamin D2] Gabapentin [Neurontin] 800 mg PO QID 06/25/17 06/25/17 Losartan Potassium [Cozaar] 50 mg PO DAILY 06/25/17 06/25/17 Metformin HCl [Glucophage] 1,000 mg PO BID 06/25/17 06/25/17 Mineral Oil/Petrolatum,White 1 appl TP BID PRN 06/25/17 06/25/17 [Eucerin Creme] Montelukast [Singulair] 10 mg PO DAILY 06/25/17 06/25/17 Multivit-Min/FA/Lycopen/Lutein [A 1 tab PO DAILY 06/25/17 06/25/17 Thru Z Select Men 50+ Tablet] Sildenafil Citrate 100 mg PO DAILY PRN 06/25/17 06/25/17 Tiotropium [Spiriva] 1 puff IH DAILY 06/25/17 06/25/17 Previous Rx's Medication Instructions Recorded Cefdinir [Omnicef] 300 mg PO BID #10 capsule 06/30/17 Furosemide [Lasix] 20 mg PO DAILY #5 tablet 06/30/17 predniSONE [PredniSONE] 10 mg PO DAILY #35 tablet 06/30/17 OxyCODONE/APAP 5/325 [Percocet 1 each PO Q4HR PRN 3 Days #10 08/26/17 5/325 MG] tablet Allergies Allergy/AdvReac Type Severity Reaction Status Date / Time No Known Allergies Allergy Verified 06/25/17 00:44 Past Medical History - Past Medical History Medical history: Reports: COPD, diabetes, hyperlipidemia, hypertension Psychiatric history: Reports: anxiety - Social History Smoking Status: Former smoker Smokeless Tobacco Status: No Alcohol use: Reports: none Drug use: Reports: none Physical Exam - General Limitations: no limitations General appearance: alert Course Vital Signs Temperature 99.8 F H 12/28/17 18:52 Pulse Rate 100 12/28/17 18:52 Respiratory Rate 22 12/28/17 18:52 Blood Pressure 114/74 12/28/17 18:52 O2 Sat by Pulse Oximetry 87 12/28/17 18:52 Temperature 98.8 F 12/28/17 23:34 Pulse Rate 92 12/28/17 23:34 Respiratory Rate 18 12/28/17 23:34 Blood Pressure 144/86 12/28/17 23:34 O2 Sat by Pulse Oximetry 93 12/28/17 23:34 Oxygen Delivery Oxygen Delivery Nasal Cannula Medical Decision Making - Lab Data Result diagrams: 12/28/17 18:57 12/28/17 18:57 Lab Results 12/28/17 12/28/17 12/28/17 Range/Units 18:57 18:57 18:57 WBC 15.3 H (4.3-11.1) K/mcL RBC 4.71 (4.19-5.50) M/mcL Hgb 13.8 (12.9-16.9) g/dL Hct 42.6 (37.5-50.1) % MCV 90.4 (83.0-100.0) fL MCH 29.3 (28.0-33.3) pg MCHC 32.4 (31.6-35.5) g/dL RDW 13.8 (11.5-14.5) % Plt Count 182 (140-400) K/mcL MPV 13.2 H (9.4-12.4) fL Immature Gran % 1.0 (0-4) % Seg Neutrophils % 83.8 % Lymphocytes % 9.3 % Monocytes % 4.3 % Eosinophils % 0.9 % Basophils % 0.7 % Neutrophils # 12.8 H (1.6-8.9) K/mcL Lymphocytes # 1.4 (0.6-4.6) K/mcL Monocytes # 0.7 (0.0-1.3) K/mcL Eosinophils # 0.1 (0.0-0.6) K/mcL Basophils # 0.1 (0.0-0.2) K/mcL Sodium 132 L (136-145) mEq/L Potassium 5.6 H (3.5-5.1) mEq/L Chloride 95 L (98-107) mEq/L Carbon Dioxide 33 H (23-29) mEq/L BUN 30 H (8-23) mg/dL Creatinine 1.15 (0.70-1.30) mg/dL Est GFR ( Amer) > 60 (> 60) Est GFR (Non-Af Amer) > 60 (> 60) BUN/Creatinine Ratio 26 (6-26) Glucose 356 H (70-105) mg/dL POC Glucose (70-99) mg/dL Calculated Osmolality 294 (280-300) Lactic Acid (0.5-2.2) mmol/L Calcium 9.2 (8.6-10.3) mg/dL Troponin I < 0.03 (< 0.04) ng/mL B-Natriuretic Peptide 148 H (Less than 100) pg/mL 12/28/17 12/28/17 Range/Units 21:15 23:39 WBC (4.3-11.1) K/mcL RBC (4.19-5.50) M/mcL Hgb (12.9-16.9) g/dL Hct (37.5-50.1) % MCV (83.0-100.0) fL MCH (28.0-33.3) pg MCHC (31.6-35.5) g/dL RDW (11.5-14.5) % Plt Count (140-400) K/mcL MPV (9.4-12.4) fL Immature Gran % (0-4) % Seg Neutrophils % % Lymphocytes % % Monocytes % % Eosinophils % % Basophils % % Neutrophils # (1.6-8.9) K/mcL Lymphocytes # (0.6-4.6) K/mcL Monocytes # (0.0-1.3) K/mcL Eosinophils # (0.0-0.6) K/mcL Basophils # (0.0-0.2) K/mcL Sodium (136-145) mEq/L Potassium (3.5-5.1) mEq/L Chloride (98-107) mEq/L Carbon Dioxide (23-29) mEq/L BUN (8-23) mg/dL Creatinine (0.70-1.30) mg/dL Est GFR ( Amer) (> 60) Est GFR (Non-Af Amer) (> 60) BUN/Creatinine Ratio (6-26) Glucose (70-105) mg/dL POC Glucose 380 H (70-99) mg/dL Calculated Osmolality (280-300) Lactic Acid 1.5 (0.5-2.2) mmol/L Calcium (8.6-10.3) mg/dL Troponin I (< 0.04) ng/mL B-Natriuretic Peptide (Less than 100) pg/mL Attestation Statement - Attestation Attestation: Resident Attestation: I examined this patient and my medical decision making was reviewed with the Resident Physician. I agree with the documented findings, disposition and treatment plan as described except to the extent set forth below. We independently had [id number] contact with the patient. Patient with shortness of breath. Brought in by EMS. Initial pulse ox of 78% on EMS evaluation. Improved to mid 90s on 2 L. Patient does have a history of COPD. Patient continues to smoke. Uses concentrator home. Awake alert and oriented 3, patient has mild tachypnea with poor air entry and expiratory wheezing. Patient will give breathing treatments reevaluated. Mild improvement after breathing treatments. Patient will be admitted for further evaluation of COPD. Concern for pneumonia. Patient states he had been admitted somewhere recently within the last 3 months. HCAP coverage. Please see resident note for details and disposition.
[2017-12-29] MEDS ORDERED: Naloxone 0.4 MG/ML INJ IVP PRN (00:10)
[2017-12-29] MEDS ORDERED: D5% in Water 1,000 ML IVC PRN ×2 (00:15→06:31)
[2017-12-29] MEDS ORDERED: Dextrose Gel 15 GM/37.5 ML TUBE PO PRN ×4 (00:15→06:31)
[2017-12-29] MEDS ORDERED: *HR* Dextrose 50 % in Water (Syg) 50 ML SYRINGE IVP PRN ×2 (00:15→06:31)
--- NOTE | 2017-12-29 00:43 | Internal Med History&Physical ---
Date of Encounter: 12/29/17 Time of Encounter: 23:15 Internal Medicine - H&P: HPI Chief complaint: ACute hypoxic respiratory failure Admitted From: Emergency Dept Plans for Post Hospital Care: Home History of present illness: Mr. Glasgow is a 62 year old male Patient presented to the ER with difficulty breathing. He states that he kept falling down and could not stand up. He had similar presentation about 6 months ago. He states that it all started when he was trying to install a program on his computer and was not using his oxygen. He became increasingly short of breath and an ambulance brought him to the hospital. He denies chest pain , nausea, vomiting, diarrhea, constipation and abdominal pain. In the ER chest x-ray showed bibasilar pneumonitis left worse than right, small pleural effusion. troponin was undetectable, CBC was within normal limits, potassium was 5.6, and blood sugar was 356. He was given breathing treatments, steroids and antibiotics and admitted for further management. Upon my assessment patient states that he is feeling better. He has a history of tobacco use, quitting 7 months ago. He is diabetic, not on insulin. He has a history of CHF, but does not appear to be in exacerbation at this time. 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 - Social History Smoking Status: Former smoker Smokeless Tobacco Status: No Alcohol use: none Drug use: none Internal Medicine - H&P: Meds ALPRAZolam [Xanax 1 MG Tablet] 1 mg PO TID 06/25/17 [History] Albuterol Sulfate [Proair Hfa] 2 puff IH Q6H PRN 06/25/17 [History] Aloe Vera/Collagen [Aloe [place] Cleansing Foam] 1 appl TP DAILY 06/25/17 [History ] Aspirin [Lo-Dose Aspirin EC] 81 mg PO DAILY 06/25/17 [History] Baclofen [Lioresal] 10 mg PO TID PRN 06/25/17 [History] Budesonide/Formoterol 160/4.5 [Symbicort 160/4.5] 2 puff IH BIDR 06/25/17 [ History] Diclofenac Sodium [Voltaren] 75 mg PO BID PRN 03/21/18 [History] Ergocalciferol (VITAMIN D2) [Vitamin D2] 50,000 unit PO QWEEK 06/25/17 [History] Gabapentin [Neurontin] 800 mg PO QID 06/25/17 [History] Losartan Potassium [Cozaar] 50 mg PO DAILY 06/25/17 [History] Metformin HCl [Glucophage] 1,000 mg PO BID 06/25/17 [History] Mineral Oil/Petrolatum,White [Eucerin Creme] 1 appl TP BID PRN 06/25/17 [History ] Montelukast [Singulair] 10 mg PO DAILY 06/25/17 [History] Multivit-Min/FA/Lycopen/Lutein [A Thru Z Select Men 50+ Tablet] 1 tab PO DAILY 06/25/17 [History] Sildenafil Citrate 100 mg PO DAILY PRN 06/25/17 [History] Tiotropium [Spiriva] 1 puff IH DAILY 06/25/17 [History] Cefdinir [Omnicef] 300 mg PO BID #10 capsule 06/30/17 [Rx] Furosemide [Lasix] 20 mg PO DAILY #5 tablet 06/30/17 [Rx] predniSONE [PredniSONE] 10 mg PO DAILY #35 tablet 06/30/17 [Rx] OxyCODONE/APAP 5/325 [Percocet 5/325 MG] 1 each PO Q4HR PRN 3 Days #10 tablet [Rx] 3 Allergy/AdvReac Type Severity Reaction Status Date / Time No Known Allergies Allergy Verified 06/25/17 00:44 All Systems PM: A 10-system review of systems was performed and is negative for pertinent findings except as documented above in the HPI. - Constitutional Vitals: Temp Pulse Resp BP Pulse Ox 98.8 F 92 18 144/86 93 12/28/17 23:34 12/28/17 23:34 12/28/17 23:34 12/28/17 23:34 12/28/17 23:34 General appearance: Present: cooperative, A&O X 3, pleasant, no acute distress, answers questions appropriately Exam: As above - Head Head exam: Present: normal inspection - Eye Eye exam: Present: EOMI, normal appearance - Neck Neck exam general surgery: Present: full ROM - Respiratory Respiratory exam: Present: decreased breath sounds, wheezes. Absent: respiratory distress, rhonchi - Cardiovascular Cardiovascular exam: Present: RRR. Absent: diastolic murmur, systolic murmur - GI/Abdominal GI/Abdominal exam: Present: normal bowel sounds, soft. Absent: tenderness - Extremities Exam Extremities exam: Present: warm, radial pulses palpable and symmetrical. Absent : calf tenderness, pedal edema, tenderness - Neurological Exam Neurological exam: Present: no focal deficits, strengths equal and symetr throughout. Absent: motor sensory deficit, facial droop, speech deficit - Skin Skin exam: Present: dry, normal color, warm Internal Med - H&P Results - Labs CBC & Chem 7: 12/29/17 05:38 12/29/17 05:38 - Assessment and plan (1) Acute exacerbation of chronic obstructive airways disease Current Visit: Yes Status: Acute Assessment and plan: Secondary to pneumonia. Continue breathing treatments Continue antibiotics Follow up blood cultures Prednisone 40mg daily. Oxygen supplementation as needed. Patient evaluated for CPAP recently, but results unavailable. (2) HCAP (healthcare-associated pneumonia) Current Visit: Yes Status: Acute Assessment and plan: As evidenced by chest x-ray. Has recent hospitalization at outside facility, so treating as healthcare associated. Continue antibiotics. Follow up blood cultures. (3) Hyperkalemia Current Visit: No Status: Acute Assessment and plan: Elevated at 5.6 in ER. Calcium glucnate given as well as albuterol, insulin and Kayexalate. No EKG changes. Repeat labs in AM. Continue to monitor. (4) Type 2 diabetes mellitus Current Visit: No Status: Chronic Assessment and plan: Will start on insulin sliding scale while inpatient. Patient's A1c in June was 7.0. Continue to monitor. Qualifiers: Diabetes mellitus termination clerk insulin use: without termination clerk use Diabetes mellitus complication status: with hyperglycemia Qualified Code(s): E11.65 - Type 2 diabetes mellitus with hyperglycemia (5) Falls Current Visit: Yes Status: Acute Assessment and plan: Likely secondary to hypoxia, patient was weak after not being on his oxygen at home. Continue to monitor If not improving, consider PT/OT Qualifiers: Qualified Code(s): W19.XXXA - Unspecified fall, initial encounter (6) DVT prophylaxis Current Visit: No Status: Acute Assessment and plan: Heparin subq - Time Spent With Patient Total time spent is greater than 50% in coordination of care (as documented) at patient's floor/unit and/or counseling patient: Greater than 35 minutes
[2017-12-29] MEDS: Azithromycin 500 MG in D5% in Water 250 ML IVPB SCH (01:37)
[2017-12-29] MEDS: Ipratropium/Albuterol Neb 3 ML IH SCH ×5 (04:41→22:32)
[2017-12-29] MEDS: Albuterol 2.5 MG/3 ML NEBULIZER IH SCH ×2 (04:41→10:28)
[2017-12-29 06:03] LABS: Hemoglobin 13.2 g/dL (12.9-16.9); Mean Corpuscular HGB Conc 31.4 g/dL (31.6-35.5); Mean Corpuscular Hemoglobin 28.4 pg (28.0-33.3); Mean Corpuscular Volume 90.5 fL (83.0-100.0); Mean Platelet Volume 12.8 fL (9.4-12.4); Platelet Count 163 K/mcL (140-400); Red Blood Count 4.64 M/mcL (4.19-5.50); Red Cell Distribution Width 13.9 % (11.5-14.5)
[2017-12-29 06:24] LABS: BUN/Creatinine Ratio 28 (6-26); Blood Urea Nitrogen 34 mg/dL (8-23); Calcium 9.2 mg/dL (8.6-10.3); Carbon Dioxide 34 mEq/L (23-29); Chloride 95 mEq/L (98-107); Glucose 554 mg/dL (70-105); Osmolality,Calculated 309 (280-300); Potassium 5.6 mEq/L (3.5-5.1); Sodium 133 mEq/L (136-145); eGFR For Non-African Americans > 60 (> 60)
[2017-12-29] MEDS: Insulin LISPRO 300 UNITS/3 ML VIAL SQ SCH ×5 (06:49→21:10)
[2017-12-29] MEDS ORDERED: Insulin LISPRO 300 UNITS/3 ML VIAL SQ SCH ×2 (07:30→21:00)
[2017-12-29] MEDS ORDERED: Insulin Human Regular 10 UNIT in 0.9 % Sodium Chloride 10 ML IV ONE (08:04)
[2017-12-29] MEDS ORDERED: 0.9 % Sodium Chloride 1,000 ML IVC ONE (08:06)
[2017-12-29] MEDS: predniSONE 20 MG TABLET PO SCH (09:26)
[2017-12-29] MEDS: Piperacillin/Tazobactam 3.375 GM in 0.9 % Sodium Chloride Mini Bag 100 ML IVPB SCH ×2 (09:27→17:08)
[2017-12-29] MEDS ORDERED: Albuterol 2.5 MG/3 ML NEBULIZER IH PRN (09:41)
--- NOTE | 2017-12-29 09:45 | Internal Med Progress Note ---
Hospitalist Progress Note - Encounter Date of Encounter: 12/29/17 Time of Encounter: 08:30 - Subjective Interval History: H&P reviewed. [facility] with [facility] of COPD, diabetes, hypertension, recent hospitalization for pneumonia about 3 months ago, is admitted for acute hypoxic respiratory failure secondary to HCAP and COPD exacerbation. Started on IV steroids, abx, and bronchodilators with symptomatic relief. He states that he feels significantly better than yesterday although continues to require 5L of O2. No chest pain, palpitation, orthopnea, PND, or LE edema. He states that he only takes metformin for his diabetes at home. His morning glucose is noted to be very high at >500. - Exam Vitals: Temp Pulse Resp BP Pulse Ox 97.8 F 80 19 135/82 91 12/29/17 07:15 12/29/17 07:15 12/29/17 07:15 12/29/17 07:15 12/29/17 07:15 Exam: General: Alert and oriented, not in acute distress. Cardiovascular:Normal S1 & S2, No JVD. Pulse regular. Lungs: scattered wheezes bilaterally, no rhonchi/rales Abdomen:Soft, non-tender, no rigidity. Extremities:No deformity or swelling Neurological:Normal cognition and motor skills. Non-focal - Assessment and Plan (1) Acute and chronic respiratory failure with hypoxia Current Visit: Yes Status: Acute Assessment and Plan: Associated with leukocytosis, low-grade temperature, and chest x-ray finding concerning for pneumonitis L>R. Recent hospital admission about 3 months ago treated with IV VAnc/zosyn/azithro as well as steroids with symptomatic improvement continue current abx, may be able to de-escalate to levaquin tomorrow PO PRednisone 40mg QD bronchodilators usually uses 2L O2 at home, wean down (2) Type 2 diabetes mellitus Current Visit: Yes Status: Chronic Assessment and Plan: hyperglycemic this morning, likely aggravated by IV steroids given yesterday 10U of IV insulin now, increase sliding scale coverage to high-dose. ADA diet, Accu-Cheks before meals and at bedtime (3) Hyperkalemia Current Visit: Yes Status: Acute Assessment and Plan: Associated with mild kidney injury Was given Kayexalate, IV insulin 5U, and beta-agonists yesterday patient is also hyperglycemic will give additional 10U of IV insulin 1 more dose of kayexalate continue bronchodilators and monitor (4) Acute kidney injury Current Visit: Yes Status: Acute Assessment and Plan: His creatinine was as low as 0.8 in June 2017 Currently around 1.2, likely aggravated by dehydration from hyperglycemia glycemic control as above 1L IVF today (5) HCAP (healthcare-associated pneumonia) Current Visit: Yes Status: Acute Assessment and Plan: Antibiotics as above Wean down O2 (6) Acute exacerbation of chronic obstructive airways disease Current Visit: Yes Status: Acute Assessment and Plan: Steroids, antibiotics, and bronchodilators as above Resume home inhalers when reconciled (7) Essential hypertension Current Visit: No Status: Chronic Assessment and Plan: On losartan at home monitor off meds given mild kidney injury DVT Prophylaxis: Subcutaneous heparin - Time Spent with Patient Total time spent is greater than 50% in coordination of care (as documented) at patient's floor/unit and/or counseling patient: Greater than 35 minutes Plan of Care Discussed with: patient Internal Medicine: Result - Labs CBC & Chem 7: 12/29/17 05:38 12/29/17 05:38 Labs: Short CBC 12/29/17 Range/Units 05:38 WBC 12.7 H (4.3-11.1) K/mcL Hgb 13.2 (12.9-16.9) g/dL Hct 42.0 (37.5-50.1) % Plt Count 163 (140-400) K/mcL BMP 12/29/17 05:38 Sodium 133 L Potassium 5.6 H Chloride 95 L Carbon Dioxide 34 H BUN 34 H Creatinine 1.20 Glucose 554 H* Calcium 9.2 Consult Discharge Plan - Plan [facility]errals: [facility] [Primary Care Provider] - (2) Type 2 diabetes mellitus Qualifiers: Diabetes mellitus bag hanger insulin use: without bag hanger use Diabetes mellitus complication status: with hyperglycemia Qualified Code(s): E11.65 - Type 2 diabetes mellitus with hyperglycemia
[2017-12-29] MEDS: Acetaminophen 325 MG TABLET PO PRN ×2 (12:54→20:06)
[2017-12-29] MEDS ORDERED: Baclofen 10 MG TABLET PO PRN (14:17)
[2017-12-29] MEDS ORDERED: Aminoglycoside Consult 1 EACH MC ONE (15:26)
[2017-12-29] MEDS: *HR* Heparin 5,000 UNIT/ML VIAL SQ SCH (17:07)
[2017-12-29] MEDS: Cholecalciferol (D-3) 1,000 UNIT TABLET PO SCH (17:07)
[2017-12-29] MEDS: Gabapentin 400 MG CAPSULE PO SCH ×2 (17:07→20:07)
--- NOTE | 2017-12-29 17:18 | Electrocardiograph Report ---
[address] [place], [place] [address] Test Date: 2017-12-28 Pat Name: Сергей Glasgow Department: [id number] Room: 2NE23 Gender: M Thoracic Surgeon: : [id number] Requested By: Hollis Mills Order Number: [id number] Reading MD: Calli Morris Measurements Intervals Devol Rate: 99 P: 62 IN: 178 QRS: 73 QRSD: 86 T: 55 QT: 340 QTc: 437 Interpretive Statements Sinus rhythm Electronically Signed On 12-29-2017 17:16:47 EDT by Calli Morris
[2017-12-29] MEDS: ALPRAZolam 1 MG TABLET PO PRN (20:10)
[2017-12-29] MEDS: Budesonide/Formoterol 160/4.5 1 PUFF INH IH SCH (22:32)
[2017-12-30] MEDS: Azithromycin 500 MG in D5% in Water 250 ML IVPB SCH ×2 (00:51→23:59)
[2017-12-30] MEDS: Piperacillin/Tazobactam 3.375 GM in 0.9 % Sodium Chloride Mini Bag 100 ML IVPB SCH ×3 (02:05→18:15)
[2017-12-30 04:21] LABS: Hematocrit 37.7 % (37.5-50.1); Hemoglobin 12.3 g/dL (12.9-16.9); Mean Corpuscular HGB Conc 32.6 g/dL (31.6-35.5); Mean Corpuscular Hemoglobin 29.2 pg (28.0-33.3); Mean Corpuscular Volume 89.5 fL (83.0-100.0); Mean Platelet Volume 12.6 fL (9.4-12.4); Platelet Count 147 K/mcL (140-400); Red Blood Count 4.21 M/mcL (4.19-5.50); Red Cell Distribution Width 13.6 % (11.5-14.5)
[2017-12-30 04:23] LABS: BUN/Creatinine Ratio 39 (6-26); Blood Urea Nitrogen 37 mg/dL (8-23); Calcium 8.5 mg/dL (8.6-10.3); Carbon Dioxide 33 mEq/L (23-29); Chloride 97 mEq/L (98-107); Glucose 333 mg/dL (70-105); Osmolality,Calculated 298 (280-300); Potassium 5.1 mEq/L (3.5-5.1); Sodium 133 mEq/L (136-145); eGFR For Non-African Americans > 60 (> 60)
[2017-12-30] MEDS: Ipratropium/Albuterol Neb 3 ML IH SCH ×4 (04:31→22:37)
[2017-12-30] MEDS: *HR* Heparin 5,000 UNIT/ML VIAL SQ SCH ×2 (05:03→18:15)
[2017-12-30] MEDS: Insulin LISPRO 300 UNITS/3 ML VIAL SQ SCH ×4 (10:14→22:18)
[2017-12-30] MEDS: predniSONE 20 MG TABLET PO SCH (10:14)
[2017-12-30] MEDS: Cholecalciferol (D-3) 1,000 UNIT TABLET PO SCH (10:15)
[2017-12-30] MEDS: Gabapentin 400 MG CAPSULE PO SCH ×4 (10:15→20:38)
[2017-12-30] MEDS: Aspirin Enteric Coated 81 MG Tablet PO SCH (10:15)
[2017-12-30] MEDS: ALPRAZolam 1 MG TABLET PO PRN ×3 (10:21→20:44)
[2017-12-30] MEDS: Budesonide/Formoterol 160/4.5 1 PUFF INH IH SCH ×2 (11:32→22:37)
--- NOTE | 2017-12-30 13:55 | Internal Med Progress Note ---
Hospitalist Progress Note - Encounter Date of Encounter: 12/30/17 Time of Encounter: 11:00 - Subjective Interval History: He states that his breathing had improved, weaning off O2 currently. No chest pain, palpitation, orthopnea, PND, or LE edema. No fever/chills. - Exam Vitals: Temp Pulse Resp BP Pulse Ox 98.2 F 72 16 131/80 99 12/30/17 11:17 12/30/17 11:17 12/30/17 11:34 12/30/17 11:17 12/30/17 11:34 Exam: General: Alert and oriented, not in acute distress. Cardiovascular:Normal S1 & S2, No JVD. Pulse regular. Lungs: scattered wheezes bilaterally, no rhonchi/rales Abdomen:Soft, non-tender, no rigidity. Extremities:No deformity or swelling Neurological:Normal cognition and motor skills. Non-focal - Assessment and Plan (1) Acute and chronic respiratory failure with hypoxia Current Visit: Yes Status: Acute Assessment and Plan: Associated with leukocytosis, low-grade temperature, and chest x-ray finding concerning for pneumonitis L>R. Recent hospital admission about 3 months ago treated with IV VAnc/zosyn/azithro as well as steroids with symptomatic improvement clinically improved, continues to require slightly higher amount of O2 continue current abx and wean down O2 as needed PO PRednisone 40mg QD, aim for a total of 5-7 days bronchodilators (2) Type 2 diabetes mellitus Current Visit: Yes Status: Chronic Assessment and Plan: glycemic control improved but still elevated, likely aggravated by IV steroids given yesterday was given IV insulin 10U yesterday will add levemir 20U at HS and keep high dose sliding scale coverage ADA diet, Accu-Cheks before meals and at bedtime (3) Hyperkalemia Current Visit: Yes Status: Resolved Assessment and Plan: Associated with mild kidney injury, improving (4) Acute kidney injury Current Visit: Yes Status: Resolved Assessment and Plan: His creatinine was as low as 0.8 in June 2017 presented with Cr around 1.2, likely aggravated by dehydration from hyperglycemia improving with IVF encourage oral intake (5) HCAP (healthcare-associated pneumonia) Current Visit: Yes Status: Acute Assessment and Plan: Antibiotics as above Wean down O2 (6) Acute exacerbation of chronic obstructive airways disease Current Visit: Yes Status: Acute Assessment and Plan: Steroids, antibiotics, and bronchodilators as above Resume home inhalers (7) Essential hypertension Current Visit: No Status: Chronic Assessment and Plan: On losartan at home monitor off meds as his BP is stable DVT Prophylaxis: Subcutaneous heparin - Time Spent with Patient Total time spent is greater than 50% in coordination of care (as documented) at patient's floor/unit and/or counseling patient: Plan of Care Discussed with: patient Internal Medicine: Result - Labs CBC & Chem 7: 12/30/17 03:49 12/30/17 03:49 Labs: Short CBC 12/30/17 Range/Units 03:49 WBC 14.2 H (4.3-11.1) K/mcL Hgb 12.3 L (12.9-16.9) g/dL Hct 37.7 (37.5-50.1) % Plt Count 147 (140-400) K/mcL BMP 12/30/17 03:49 Sodium 133 L Potassium 5.1 Chloride 97 L Carbon Dioxide 33 H BUN 37 H Creatinine 0.96 Glucose 333 H Calcium 8.5 L Consult Discharge Plan - Plan [facility]errals: [facility] [Primary Care Provider] - (2) Type 2 diabetes mellitus Qualifiers: Diabetes mellitus group home insulin use: without charge poster use Diabetes mellitus complication status: with hyperglycemia Qualified Code(s): E11.65 - Type 2 diabetes mellitus with hyperglycemia
[2017-12-30] MEDS ORDERED: Insulin DETEMIR 100 UNIT/ML X5UNITS SQ SCH (21:00)
[2017-12-31] MEDS: Piperacillin/Tazobactam 3.375 GM in 0.9 % Sodium Chloride Mini Bag 100 ML IVPB SCH ×2 (01:35→08:57)
[2017-12-31] MEDS: Ipratropium/Albuterol Neb 3 ML IH SCH ×2 (03:51→11:14)
[2017-12-31] MEDS: *HR* Heparin 5,000 UNIT/ML VIAL SQ SCH (04:49)
[2017-12-31 05:03] LABS: Basophils % 0.2 %; Eosinophils % 0.3 %; Hematocrit 35.8 % (37.5-50.1); Hemoglobin 11.7 g/dL (12.9-16.9); Immature Granulocytes % 0.5 % (0-4); Lymphocytes # 2.4 K/mcL (0.6-4.6); Lymphocytes % 21.8 %; Mean Corpuscular HGB Conc 32.7 g/dL (31.6-35.5); Mean Corpuscular Hemoglobin 28.8 pg (28.0-33.3); Mean Corpuscular Volume 88.2 fL (83.0-100.0); Mean Platelet Volume 12.8 fL (9.4-12.4); Monocytes # 0.6 K/mcL (0.0-1.3); Platelet Count 161 K/mcL (140-400); Red Blood Count 4.06 M/mcL (4.19-5.50); Red Cell Distribution Width 13.6 % (11.5-14.5); Segmented Neutrophils % 72.2 %
[2017-12-31 05:23] LABS: BUN/Creatinine Ratio 40 (6-26); Blood Urea Nitrogen 35 mg/dL (8-23); Calcium 8.9 mg/dL (8.6-10.3); Carbon Dioxide 32 mEq/L (23-29); Chloride 99 mEq/L (98-107); Glucose 230 mg/dL (70-105); Osmolality,Calculated 297 (280-300); Sodium 136 mEq/L (136-145); eGFR For Non-African Americans > 60 (> 60)
[2017-12-31 07:09] VITALS: BP 135/82
[2017-12-31] MEDS: Insulin LISPRO 300 UNITS/3 ML VIAL SQ SCH ×2 (08:56→13:39)
[2017-12-31] MEDS: Gabapentin 400 MG CAPSULE PO SCH ×2 (08:58→13:40)
[2017-12-31] MEDS: Aspirin Enteric Coated 81 MG Tablet PO SCH (08:58)
[2017-12-31] MEDS: Cholecalciferol (D-3) 1,000 UNIT TABLET PO SCH (08:59)
[2017-12-31] MEDS: predniSONE 20 MG TABLET PO SCH (09:00)
--- NOTE | 2017-12-31 09:08 | Discharge Summary ---
- NOTES TO OUTPATIENT PROVIDER Notes to Outpatient Provider: Patient was admitted for acute on chronic hypoxic respiratory failure secondary to HCAP. Treated with IV Vanc/zosyn/zithromycin for 3 days with clinical improvement. He was also given oral prednisone for COPD exacerbation. He will be discharged on 7 day course of PO levaquin and tapering dose of steroid. Of note, he was noted to be very hyperglycemic likely due to the steroid use but it appears that he will probably need additional diabetic meds as an outpatient as he required up to 47U of insulin during his stay. Therefore, he will be discharged on insulin 70/30 25U BID to cover for the duration when he is on steroids; further doses to be determined as outpatient. Date of Encounter: 12/31/17 Time of Encounter: 08:00 - Discharge Diagnosis (1) Acute and chronic respiratory failure with hypoxia Priority: Primary Status: Acute (2) Type 2 diabetes mellitus Priority: Secondary Status: Chronic Qualifiers: Diabetes mellitus retirement insulin use: without retirement use Diabetes mellitus complication status: with hyperglycemia Qualified Code(s): E11.65 - Type 2 diabetes mellitus with hyperglycemia (3) Hyperkalemia Priority: Secondary Status: Resolved (4) Acute kidney injury Priority: Secondary Status: Resolved (5) HCAP (healthcare-associated pneumonia) Priority: Secondary Status: Acute (6) Acute exacerbation of chronic obstructive airways disease Priority: Secondary Status: Acute (7) Essential hypertension Priority: Secondary Status: Chronic Hospital course: Mr. Glasgow is a 62 year old male with past history of COPD, diabetes was admitted for acute on chronic hypoxic respiratory failure secondary to HCAP and YUKI. Treated with IV Vanc/zosyn/zithromycin for 3 days with clinical improvement. YUKI improved with IVF. He was also given oral prednisone for COPD exacerbation. He will be discharged on 7 day course of PO levaquin and tapering dose of steroid. Of note, he was noted to be very hyperglycemic likely due to the steroid use but it appears that he will probably need additional diabetic meds as an outpatient as he required up to 47U of insulin during his stay. Therefore, he will be discharged on insulin 70/30 25U BID to cover for the duration when he is on steroids; further doses to be determined as outpatient. Discharge discussed with: patient - Time Spent with Patient Total time spent providing and/or coordinating discharge services: Greater than 30 minutes - Discharge Medications Prescriptions: Insulin NPH Hum/Reg Insulin Hm [Humulin 70/30 Kwikpen] 25 unit SQ BID #1 insuln.pen levoFLOXacin [Levaquin] 750 mg PO DAILY #7 tablet predniSONE [PredniSONE] 40 mg PO DAILY #10 tablet Home Medications: Albuterol Sulfate [Proair Hfa] 2 puff IH Q6H PRN 06/25/17 [History] Aloe Vera/Collagen [Aloe [place] Cleansing Foam] 1 appl TP DAILY 06/25/17 [History ] Aspirin [Lo-Dose Aspirin EC] 81 mg PO DAILY 06/25/17 [History] Baclofen [Lioresal] 10 mg PO TID PRN 06/25/17 [History] Budesonide/Formoterol 160/4.5 [Symbicort 160/4.5] 2 puff IH BIDR 06/25/17 [ History] Diclofenac Sodium [Voltaren] 75 mg PO BID PRN 06/25/17 [History] Ergocalciferol (VITAMIN D2) [Vitamin D2] 50,000 unit PO QWEEK 06/25/17 [History] Gabapentin [Neurontin] 800 mg PO QID 06/25/17 [History] Metformin HCl [Glucophage] 1,000 mg PO BID 06/25/17 [History] Montelukast [Singulair] 10 mg PO DAILY 06/25/17 [History] Multivit-Min/FA/Lycopen/Lutein [A Thru Z Select Men 50+ Tablet] 1 tab PO DAILY 06/25/17 [History] Sildenafil Citrate 100 mg PO DAILY PRN 06/25/17 [History] Tiotropium [Spiriva] 1 puff IH DAILY 06/25/17 [History] ALPRAZolam [Xanax 1 MG Tablet] 1 mg PO TID PRN 12/29/17 [History] Albuterol Neb [Proventil Neb] 2.5 mg IH Q6H PRN 12/29/17 [History] Duloxetine HCl [Cymbalta] 60 mg PO DAILY 12/29/17 [History] Metoprolol [Lopressor] 12.5 mg PO BID 12/29/17 [History] Nicotine Polacrilex [Nicotine Gum] 4 mg BC QID PRN 12/29/17 [History] Quetiapine Fumarate [Seroquel] 50 mg PO HS 12/29/17 [History] Insulin NPH Hum/Reg Insulin Hm [Humulin 70/30 Kwikpen] 25 unit SQ BID #1 insuln.pen 12/31/17 [Rx] levoFLOXacin [Levaquin] 750 mg PO DAILY #7 tablet 12/31/17 [Rx] predniSONE [PredniSONE] 40 mg PO DAILY #10 tablet 12/31/17 [Rx] Allergies/Adverse Reactions: 3 Allergy/AdvReac Type Severity Reaction Status Date / Time No Known Allergies Allergy Verified 06/25/17 00:44 Date of admission: 12/29/17 00:38 [facility] physician[facility] Consults: 12/29/17 14:34 Consult to Occupational Therapy [CONS] Routine Comment: Evaluate, develop and implement POC Reason for Consult: hypoxic respiratory failure, deconditioning Does patient have active BEDREST order?: No Is patient medically & hemodynamically stable?: Yes Consult to Physical Therapy [CONS] Routine Comment: Evaluate, develop and implement POC Reason for Consult: hypoxic respiratory failure, deconditioning Does patient have active BEDREST order?: No Is patient medically & hemodynamically stable?: Yes - Constitutional Vitals: Temp Pulse Resp BP Pulse Ox 97.4 F L 63 20 135/82 94 12/31/17 07:00 12/31/17 07:00 12/31/17 07:00 12/31/17 07:00 12/31/17 07:00 General appearance: Present: cooperative, A&O X 3, pleasant, no acute distress, answers questions appropriately Exam: General: Alert and oriented, not in acute distress. Cardiovascular:Normal S1 & S2, No JVD. Pulse regular. Lungs: Clear to auscultation, no wheezes/rhonchi/rales Abdomen:Soft, non-tender, no rigidity. Extremities:No deformity or swelling Neurological:Normal cognition and motor skills. Non-focal - Patient Status Disposition: Home Health Service Condition: Fair Overall status at discharge: patient is progressing back to baseline - Discharge Instructions Instructions: Acute Respiratory Distress Syndrome (DC), Chronic Obstructive Pulmonary Disease (DC), Pneumonia (DC), Diabetes Mellitus Type 2 in Adults (DC) , Chronic Hypertension (DC) Follow [facility] With: [facility]Primary Care Provider[facility] - 01/08/18 10:00 am Forms: ED Satisfaction Letter - Diet and Activity Activity: as per physical therapy Diet: diabetic diet
[2017-12-31] MEDS: ALPRAZolam 1 MG TABLET PO PRN ×2 (09:11→13:43)
--- NOTE | 2017-12-31 09:16 | Physician Discharge Referral ---
Home Health/Hosp Referral Info Transfer to: Home Health - Diagnosis (1) Acute and chronic respiratory failure with hypoxia Priority: Primary Status: Acute (2) Type 2 diabetes mellitus Priority: Secondary Status: Chronic (3) Hyperkalemia Priority: Secondary Status: Resolved (4) Acute kidney injury Priority: Secondary Status: Resolved (5) HCAP (healthcare-associated pneumonia) Priority: Secondary Status: Acute (6) Acute exacerbation of chronic obstructive airways disease Priority: Secondary Status: Acute (7) Essential hypertension Priority: Secondary Status: Chronic - Respiratory Orders Smoking Cessation: Smoking cessation has been advised. For more information, call the [place] Tobacco Quit Line at 0-377-AMQTNOW. - Services Needed Following services are medically necessary services: Physical Therapy - Transfer Medications Prescriptions: Insulin NPH Hum/Reg Insulin Hm [Humulin 70/30 Kwikpen] 25 unit SQ BID #1 insuln.pen levoFLOXacin [Levaquin] 750 mg PO DAILY #7 tablet predniSONE [PredniSONE] 40 mg PO DAILY #10 tablet Home Medications: Albuterol Sulfate [Proair Hfa] 2 puff IH Q6H PRN 06/25/17 [History] Aloe Vera/Collagen [Aloe [place] Cleansing Foam] 1 appl TP DAILY 06/25/17 [History ] Aspirin [Lo-Dose Aspirin EC] 81 mg PO DAILY 06/25/17 [History] Baclofen [Lioresal] 10 mg PO TID PRN 06/25/17 [History] Budesonide/Formoterol 160/4.5 [Symbicort 160/4.5] 2 puff IH BIDR 06/25/17 [ History] Diclofenac Sodium [Voltaren] 75 mg PO BID PRN 06/25/17 [History] Ergocalciferol (VITAMIN D2) [Vitamin D2] 50,000 unit PO QWEEK 06/25/17 [History] Gabapentin [Neurontin] 800 mg PO QID 06/25/17 [History] Metformin HCl [Glucophage] 1,000 mg PO BID 06/25/17 [History] Montelukast [Singulair] 10 mg PO DAILY 06/25/17 [History] Multivit-Min/FA/Lycopen/Lutein [A Thru Z Select Men 50+ Tablet] 1 tab PO DAILY 06/25/17 [History] Sildenafil Citrate 100 mg PO DAILY PRN 06/25/17 [History] Tiotropium [Spiriva] 1 puff IH DAILY 06/25/17 [History] ALPRAZolam [Xanax 1 MG Tablet] 1 mg PO TID PRN 12/29/17 [History] Albuterol Neb [Proventil Neb] 2.5 mg IH Q6H PRN 12/29/17 [History] Duloxetine HCl [Cymbalta] 60 mg PO DAILY 12/29/17 [History] Metoprolol [Lopressor] 12.5 mg PO BID 12/29/17 [History] Nicotine Polacrilex [Nicotine Gum] 4 mg BC QID PRN 12/29/17 [History] Quetiapine Fumarate [Seroquel] 50 mg PO HS 12/29/17 [History] Insulin NPH Hum/Reg Insulin Hm [Humulin 70/30 Kwikpen] 25 unit SQ BID #1 insuln.pen 12/31/17 [Rx] levoFLOXacin [Levaquin] 750 mg PO DAILY #7 tablet 12/31/17 [Rx] predniSONE [PredniSONE] 40 mg PO DAILY #10 tablet 12/31/17 [Rx] Allergies/Adverse Reactions: 3 Allergy/AdvReac Type Severity Reaction Status Date / Time No Known Allergies Allergy Verified 06/25/17 00:44 Certification: Further, I certify that my clinical findings support that this patient is homebound (i.e. absences from home require considerable and taxing effort and are for medical reasons or [employer] services or infrequently or short duration when for other reasons) because: Homebound Reason: Patient requires assistance of a person or device to safely leave home Attestation: My signature below is to certify that this patient is under my care and that I, or nurse practitioner, or a physician's recreation assistant working with me, has a face-to -face encounter with this patient.
[2017-12-31] MEDS: Budesonide/Formoterol 160/4.5 1 PUFF INH IH SCH (11:14)
== END 2017-12-31 15:27 | disposition home health service (06) | DRG 193 ==
LOC: EMEROOARM 18:48 → 2NENU 18:48 → SUATTDRO 12-29 00:38
PROVIDERS: ADMIT Family Medicine; ATTEND Internal Medicine

== ENCOUNTER 2018-04-05 14:15 | Inpatient (IN) ==
--- NOTE | 2018-04-05 14:36 | Emergency Department Note ---
Disposition Clinical Impression: Poorly controlled diabetes mellitus Osteomyelitis Qualifiers: Osteomyelitis type: unspecified type Osteomyelitis location: foot Laterality: left Qualified Code(s): M86.9 - Osteomyelitis, unspecified Disposition: Admitted As Inpatient Condition: Fair [facility]: [facility] [Primary Care Provider[facility] - Forms: ED Satisfaction Letter, Work/School Release Time of Disposition: 15:35 General Adult HPI - General Chief complaint: ED General Medical Stated complaint: hyperglycemia Time Seen by Provider: 04/05/18 14:22 Source: patient, family Limitations: no limitations Nursing Notes Reviewed: Yes Vital Signs Reviewed: Yes - History of Present Illness HPI Narrative: Patient presents to the ED with chief complaint of hyperglycemia. Patient reports a history of diabetes, [id number] and is on metformin. States that he was recently placed on Levaquin for a left foot diabetic ulcer. Has not been on steroids. States his blood sugars have been running in 500s the last couple of days. States the pain in his foot is still there, but is getting better. His chronic pain in his legs. No change from baseline. No fever, chills, chest pain, shortness breath, abdominal pain, nausea, vomiting or d iarrhea. He does not feel lightheaded or dizzy. No headaches or changes in vision. States he feels okay other than his blood sugar being high. Pain Scale: 9 - Related Data Home Medications Medication Instructions Recorded Confirmed Albuterol Sulfate [Proair Hfa] 2 puff IH Q6H PRN 06/25/17 12/29/17 Aloe Vera/Collagen [Aloe [place] 1 appl TP DAILY 06/25/17 12/29/17 Cleansing Foam] Aspirin [Lo-Dose Aspirin EC] 81 mg PO DAILY 06/25/17 12/29/17 Baclofen [Lioresal] 10 mg PO TID PRN 06/25/17 12/29/17 Budesonide/Formoterol 160/4.5 2 puff IH BIDR 06/25/17 12/29/17 [Symbicort 160/4.5] Diclofenac Sodium [Voltaren] 75 mg PO BID PRN 06/25/17 12/29/17 Ergocalciferol (VITAMIN D2) 50,000 unit PO QWEEK 06/25/17 12/29/17 [Vitamin D2] Gabapentin [Neurontin] 800 mg PO QID 06/25/17 12/29/17 Metformin HCl [Glucophage] 1,000 mg PO BID 06/25/17 12/29/17 Montelukast [Singulair] 10 mg PO DAILY 06/25/17 12/29/17 Multivit-Min/FA/Lycopen/Lutein [A 1 tab PO DAILY 06/25/17 12/29/17 Thru Z Select Men 50+ Tablet] Sildenafil Citrate 100 mg PO DAILY PRN 06/25/17 12/29/17 Tiotropium [Spiriva] 1 puff IH DAILY 06/25/17 12/29/17 ALPRAZolam [Xanax 1 MG Tablet] 1 mg PO TID PRN 12/29/17 12/29/17 Albuterol Neb [Proventil Neb] 2.5 mg IH Q6H PRN 12/29/17 12/29/17 Duloxetine HCl [Cymbalta] 60 mg PO DAILY 12/29/17 12/29/17 Metoprolol [Lopressor] 12.5 mg PO BID 12/29/17 12/29/17 Nicotine Polacrilex [Nicotine Gum] 4 mg BC QID PRN 12/29/17 12/29/17 Quetiapine Fumarate [Seroquel] 50 mg PO HS 12/29/17 12/29/17 Previous Rx's Medication Instructions Recorded Insulin NPH Hum/Reg Insulin Hm 25 unit SQ BID #1 insuln.pen 12/31/17 [Humulin 70/30 Kwikpen] levoFLOXacin [Levaquin] 750 mg PO DAILY #7 tablet 12/31/17 predniSONE [PredniSONE] 40 mg PO DAILY #10 tablet 12/31/17 Allergies Allergy/AdvReac Type Severity Reaction Status Date / Time No Known Allergies Allergy Verified 04/05/18 14:28 Review of Systems: As reviewed in the HPI. All other systems reviewed are negative or normal. Past Medical History - Past Medical History Attestation: Yes The following information was validated with the patient. Source: patient Medical history: Reports: COPD, diabetes, hyperlipidemia, hypertension Psychiatric history: Reports: anxiety - Social History Smoking Status: Former smoker Smokeless Tobacco Status: No Alcohol use: Reports: none Drug use: Reports: none Physical Exam CONSTITUTIONAL: [well appearing, alert and in no acute distress] EYES: [EOMI, clear conjunctiva, PERRLA] HENT: [Normocephalic, atraumatic, moist mucus membranes, normal oropharynx] NECK: [normal inspection, full ROM, trachea midline, no obvious swelling] PULMONARY: [normal lung sounds bilaterally, normal chest rise and fall, no respiratory distress or stridor, no wheezes, no rales, no rhonchi CARDIOVASCULAR: [regular rate, regular rhythm, normal heart sounds, no murmurs, distal extremities are warm and well perfused] GASTROINSTESTINAL: [soft, non-tender, non-rigid, non-distended, no guarding, no rebound, normal bowel sounds] GENITOURINARY/RECTAL: [deferred] NEUROLOGIC: [Alert, oriented x3, normal speech, moves all extremities] EXTREMITIES: [Diabetic ulcer to the left foot MTP with ulceration, but no significant surrounding erythema or cellulitis, no crepitus or deformity, there is mild tenderness to the calves bilaterally. The patient reports is chronic] MUSCULOSKELETAL: [no gross deformities, atraumatic] SKIN: [No cyanosis, no diaphoresis, normal color, warm, no rash] PSYCHIATRIC: [normal mood and affect] Course - Reevaluation(s) Reevaluation #1: Patient has failed outpatient therapy with Levaquin. Does look like he is getting osteomyelitis. Started on vanc and Zosyn. Blood cultures ordered. Admitted to the hospitalist service Vital Signs Temperature 98.5 F 04/05/18 14:18 Pulse Rate 100 04/05/18 14:18 Respiratory Rate 16 04/05/18 14:18 Blood Pressure 147/91 04/05/18 14:18 O2 Sat by Pulse Oximetry 92 04/05/18 14:18 Temperature 98.5 F 04/05/18 14:40 Pulse Rate 96 04/05/18 15:00 Respiratory Rate 20 04/05/18 15:00 Blood Pressure 137/88 04/05/18 15:00 O2 Sat by Pulse Oximetry 94 04/05/18 15:00 Oxygen Delivery Oxygen Delivery Room Air Medical Decision Making - Medical Records Medical records reviewed: Yes I reviewed the patient's medical records. - Lab Data Lab results reviewed: Yes I reviewed the patient's lab results. Result diagrams: 04/05/18 14:32 04/05/18 14:32 Lab Results 12/30/18 12/30/18 12/30/18 Range/Units 14:32 14:32 14:38 WBC 13.7 H (4.3-11.1) K/mcL RBC 5.05 (4.19-5.50) M/mcL Hgb 14.6 (12.9-16.9) g/dL Hct 44.4 (37.5-50.1) % MCV 87.9 (83.0-100.0) fL MCH 28.9 (28.0-33.3) pg MCHC 32.9 (31.6-35.5) g/dL RDW 13.4 (11.5-14.5) % Plt Count 241 (140-400) K/mcL MPV 13.0 H (9.4-12.4) fL Immature Gran % 0.9 (0-4) % Seg Neutrophils % 69.7 % Lymphocytes % 21.8 % Monocytes % 4.6 % Eosinophils % 2.2 % Basophils % 0.8 % Neutrophils # 9.6 H (1.6-8.9) K/mcL Lymphocytes # 3.0 (0.6-4.6) K/mcL Monocytes # 0.6 (0.0-1.3) K/mcL Eosinophils # 0.3 (0.0-0.6) K/mcL Basophils # 0.1 (0.0-0.2) K/mcL VBG pH (7.32-7.42) pH Units VBG pCO2 (41-51) mmHg VBG pO2 (25-50) mmHg VBG HCO3 (21-27) mEq/L Sodium 138 (136-145) mEq/L Potassium 5.1 (3.5-5.1) mEq/L Chloride 96 L (98-107) mEq/L Carbon Dioxide 35 H (23-29) mEq/L BUN 26 H (8-23) mg/dL Creatinine 1.23 (0.70-1.30) mg/dL Est GFR ( Amer) > 60 (> 60) Est GFR (Non-Af Amer) 59 L (> 60) BUN/Creatinine Ratio 21 (6-26) Glucose 260 H (70-105) mg/dL Calculated Osmolality 300 (280-300) Calcium 9.7 (8.6-10.3) mg/dL Magnesium 1.9 (1.6-2.6) mg/dL Beta-Hydroxybutyric Acd 0.10 (0.02-0.27) mmol/L 04/05/18 Range/Units 15:02 WBC (4.3-11.1) K/mcL RBC (4.19-5.50) M/mcL Hgb (12.9-16.9) g/dL Hct (37.5-50.1) % MCV (83.0-100.0) fL MCH (28.0-33.3) pg MCHC (31.6-35.5) g/dL RDW (11.5-14.5) % Plt Count (140-400) K/mcL MPV (9.4-12.4) fL Immature Gran % (0-4) % Seg Neutrophils % % Lymphocytes % % Monocytes % % Eosinophils % % Basophils % % Neutrophils # (1.6-8.9) K/mcL Lymphocytes # (0.6-4.6) K/mcL Monocytes # (0.0-1.3) K/mcL Eosinophils # (0.0-0.6) K/mcL Basophils # (0.0-0.2) K/mcL VBG pH 7.40 (7.32-7.42) pH Units VBG pCO2 51 (41-51) mmHg VBG pO2 90 H (25-50) mmHg VBG HCO3 32 H (21-27) mEq/L Sodium (136-145) mEq/L Potassium (3.5-5.1) mEq/L Chloride (98-107) mEq/L Carbon Dioxide (23-29) mEq/L BUN (8-23) mg/dL Creatinine (0.70-1.30) mg/dL Est GFR ( Amer) (> 60) Est GFR (Non-Af Amer) (> 60) BUN/Creatinine Ratio (6-26) Glucose (70-105) mg/dL Calculated Osmolality (280-300) Calcium (8.6-10.3) mg/dL Magnesium (1.6-2.6) mg/dL Beta-Hydroxybutyric Acd (0.02-0.27) mmol/L - Radiology Data Radiology results reviewed: Yes I reviewed the patient's radiology results. - EKG Data EKG #1 EKG attestation: Yes I reviewed and interpreted this EKG. EKG results narrative: Sinus rhythm, rate 90, normal axis, no acute ischemic changes Attestation Statement - Attestation Attestation: Patient was seen with resident physician. I reviewed the history, physical, assessment and plan, and agree with the findings. I also personally evaluated this patient and had hucd-[id number] time with this patient. 62-year-old male presents emergency part with hyperglycemia. Patient is a type II diabetic who takes oral hypoglycemics. He says his blood sugars been in the 500s over the last couple of days. His been slowly coming down. In today was 250 which is the best number that he said a while. He does have a healing ulcer on his left lower extremity he has been taking Levaquin and he is still on that. He denies other complaints. He is here today basically because his made him come in. Review of systems as above remainder negative. Physical exam vitals are stable. ENT is unremarkable. Heart regular rhythm and rate. Lungs clear. Abdomen is soft and nontender. Extremities healing ulcer in the left lower extremity around the area the fifth toe. Neurologically alert and oriented. Skin no obvious rashes. Psych normal. ED course. Initial blood glucose was in the 250s. We will check other lab test to make sure he does not have ketoacidosis. Workup revealed that the cellulitis is not improving with outpatient antibiotics. Additionally appears that he may be developing osteomyelitis. As result of this blood cultures were drawn and IV antibiotics were administered. Hospitalist was notified as to the need for additional inpatient IV antibiotic therapy. The patient's glucose was stable while in the emergency department. I think this infection could be contributing to his difficult time controlling his blood sugars at this point. Hemodynamically he remained stable. I agree with resident physician assessment and plan.
[2018-04-05] MEDS: 0.9 % Sodium Chloride 1,000 ML IVC SCH ×2 (14:47→15:21)
[2018-04-05 15:07] LABS: Basophils # 0.1 K/mcL (0.0-0.2); Basophils % 0.8 %; Eosinophils # 0.3 K/mcL (0.0-0.6); Eosinophils % 2.2 %; Hematocrit 44.4 % (37.5-50.1); Hemoglobin 14.6 g/dL (12.9-16.9); Immature Granulocytes % 0.9 % (0-4); Lymphocytes % 21.8 %; Mean Corpuscular HGB Conc 32.9 g/dL (31.6-35.5); Mean Corpuscular Hemoglobin 28.9 pg (28.0-33.3); Mean Corpuscular Volume 87.9 fL (83.0-100.0); Monocytes # 0.6 K/mcL (0.0-1.3); Monocytes % 4.6 %; Neutrophils # 9.6 K/mcL (1.6-8.9); Platelet Count 241 K/mcL (140-400); Red Blood Count 5.05 M/mcL (4.19-5.50); Red Cell Distribution Width 13.4 % (11.5-14.5); Segmented Neutrophils % 69.7 %
[2018-04-05 15:07] LABS: VBG HCO3 32 mEq/L (21-27); VBG PCO2 51 mmHg (41-51); VBG PO2 90 mmHg (25-50)
[2018-04-05 15:08] LABS: BUN/Creatinine Ratio 21 (6-26); Blood Urea Nitrogen 26 mg/dL (8-23); Calcium 9.7 mg/dL (8.6-10.3); Carbon Dioxide 35 mEq/L (23-29); Chloride 96 mEq/L (98-107); Glucose 260 mg/dL (70-105); Magnesium 1.9 mg/dL (1.6-2.6); Osmolality,Calculated 300 (280-300); Potassium 5.1 mEq/L (3.5-5.1); Sodium 138 mEq/L (136-145); eGFR For Non-African Americans 59 (> 60)
[2018-04-05] MEDS ORDERED: Piperacillin/Tazobactam 3.375 GM in 0.9 % Sodium Chloride Mini Bag 100 ML IVPB ONE (15:28)
[2018-04-05] MEDS ORDERED: Naloxone 0.4 MG/ML INJ IVP PRN (16:08)
[2018-04-05] MEDS ORDERED: Albuterol 2.5 MG/3 ML NEBULIZER IH PRN (16:43)
[2018-04-05] MEDS ORDERED: Baclofen 10 MG TABLET PO PRN (16:43)
--- NOTE | 2018-04-05 16:47 | Internal Med History&Physical ---
Date of Encounter: 04/05/18 Time of Encounter: 16:30 Internal Medicine - H&P: HPI Chief complaint: Left foot ulcer, uncontrolled blood sugars Admitted From: Emergency Dept Plans for Post Hospital Care: Home History of present illness: Mr. Glasgow is a 62 year old male patient with a history of diabetes mellitus, chronic back pain, COPD who presented to the ER with complaints of ulcer on his left foot that has been going on for one week. He had seen his primary care provider [facility] who had prescribed him Levaquin. Patient states that he took 3 days of Levaquin with no improvement in his symptoms. He has also been checking his blood sugars over the past week and he notices that there were severely elevated. 3 days back his blood sugars were in the 500s. Patient takes metformin at home for his diabetes. Patient denies any discharge from his left foot ulcer. No recent wounds or trauma as far as he knows. No fevers or chills reported. Past Med Surg Social Fam HX - Past Medical History Attestation: Yes The following information was validated with the patient. 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 - Social History Smoking Status: Former smoker Smokeless Tobacco Status: No Alcohol use: none Drug use: none - Additional Family History Additional family history: Family history reviewed and found to be noncontribut ory at this time Internal Medicine - H&P: Meds Albuterol Sulfate [Proair Hfa] 2 puff IH Q6H PRN 06/25/17 [History] Aspirin [Lo-Dose Aspirin EC] 81 mg PO DAILY 06/25/17 [History] Baclofen [Lioresal] 10 mg PO TID PRN 06/25/17 [History] Budesonide/Formoterol 160/4.5 [Symbicort 160/4.5] 2 puff IH BIDR 06/25/17 [History] Diclofenac Sodium [Voltaren] 75 mg PO BID PRN 06/25/17 [History] Gabapentin [Neurontin] 800 mg PO QID 06/25/17 [History] Metformin HCl [Glucophage] 1,000 mg PO BID 06/25/17 [History] Montelukast [Singulair] 10 mg PO DAILY 06/25/17 [History] Multivit-Min/FA/Lycopen/Lutein [A Thru Z Select Men 50+ Tablet] 1 tab PO DAILY 06/25/17 [History] Sildenafil Citrate 100 mg PO DAILY PRN 06/25/17 [History] ALPRAZolam [Xanax 1 MG Tablet] 1 mg PO TID PRN 12/29/17 [History] Albuterol Neb [Proventil Neb] 2.5 mg IH Q6H PRN 12/29/17 [History] Duloxetine HCl [Cymbalta] 60 mg PO DAILY 12/29/17 [History] Metoprolol [Lopressor] 12.5 mg PO BID 12/29/17 [History] Insulin NPH Hum/Reg Insulin Hm [Humulin 70/30 Kwikpen] 25 unit SQ BID #1 insuln.pen 12/31/17 [Rx] Cholecalciferol (D-3) [Vitamin D] 2,000 unit PO DAILY 04/05/18 [History] Levofloxacin [Levaquin] 500 mg PO DAILY 04/05/18 [History] Quetiapine Fumarate [Seroquel] 100 mg PO HS 04/05/18 [History] Tiotropium [place] [Spiriva Respimat] 2 puff IH DAILY 04/05/18 [History] Allergy/AdvReac Type Severity Reaction Status Date / Time No Known Allergies Allergy Verified 04/05/18 14:28 All Systems PM: A 10-system review of systems was performed and is negative for pertinent findings except as documented above in the HPI. - Constitutional Constitutional: no chills, no fever(s), no night sweats - EENT Eyes: no change in vision, no discharge, no pain, no photophobia Ears: no ear discharge, no ear pain, no tinnitus Nose, mouth and throat: no dysphagia, no nasal discharge, no neck pain, no sore throat - Cardiovascular Cardiovascular ROS IM: no chest pain, no diaphoresis, no dyspnea, no lightheadedness, no palpitations, no syncope - Respiratory Respiratory: no cough, no dyspnea, no wheezing, no excessive phlegm production - Gastrointestinal Gastrointestinal: no abdominal pain, no diarrhea, no hematemesis, no hematochezia, no melena, no nausea, no vomiting - Musculoskeletal Musculoskeletal ROS IM: no numbness, no tingling - Integumentary Integumentary IM: skin ulcer - Neurological Neurological ROS: no confusion, no convulsions, no focal weakness, no numbness, no tingling, no tremor(s) - Hematologic/Lymphatic Hematologic/Lymphatic: no easy bruising - Constitutional Vitals: Temp Pulse Resp BP Pulse Ox 98.5 F 96 20 137/88 94 04/05/18 14:40 04/05/18 15:00 04/05/18 15:00 04/05/18 15:00 04/05/18 15:00 General appearance: Present: cooperative, A&O X 3, pleasant, answers questions appropriately Exam: . - Eye Eye exam: Present: EOMI, normal appearance - Neck Neck exam general surgery: Present: supple, trachea midline. Absent: l ymphadenopathy - Respiratory Respiratory exam: Present: decreased breath sounds (Decreased air entry bilaterally), prolonged expiratory phase, wheezes. Absent: accessory muscle use, rales, rhonchi - Cardiovascular Cardiovascular exam: Present: RRR, +S1, +S2. Absent: diastolic murmur, gallop, rubs, systolic murmur - GI/Abdominal GI/Abdominal exam: Present: normal bowel sounds, soft, no peritoneal signs. Absent: distended, tenderness - Extremities Exam Extremities exam: Present: warm, radial pulses palpable and symmetrical. Absent: calf tenderness, cyanotic, pedal edema - Neurological Exam Neurological exam: Present: alert, oriented X3, no focal deficits. Absent: facial droop, speech deficit - Psychiatric Psychiatric exam: Present: flat affect, normal mood - Skin Skin exam: Present: dry, intact Additional comments: Ulcer on the plantar surface of left foot at the fifth metatarsophalangeal joint. Measures 2 cm in size. Dry skin without any discharge noted. Nontender to palpation. Internal Med - H&P Results - Labs CBC & Chem 7: 04/05/18 14:32 04/05/18 14:32 Labs: Short CBC 04/05/18 Range/Units 14:32 WBC 13.7 H (4.3-11.1) K/mcL Hgb 14.6 (12.9-16.9) g/dL Hct 44.4 (37.5-50.1) % Plt Count 241 (140-400) K/mcL Neutrophils # 9.6 H (1.6-8.9) K/mcL BMP 04/05/18 14:32 Sodium 138 Potassium 5.1 Chloride 96 L Carbon Dioxide 35 H BUN 26 H Creatinine 1.23 Glucose 260 H Calcium 9.7 - ABG Interpretation ABG results: 04/05/18 15:02 VBG pH 7.40 VBG pCO2 51 VBG pO2 90 H VBG HCO3 32 H - Impressions ITS Impressions Foot X-Ray 04/05/18 14:32 IMPRESSION: Focal soft tissue swelling and soft tissue ulceration along the lateral aspect of the foot at the level of the 5th MTP joint suggesting cellulitis. Subtle lucency of the 5th metatarsal head may represent early osteomyelitis. MRI would be more sensitive. D/ / 04/05/2018 15:22:37 Hari Nascimento MD / ewa Interpreting Provider: Hari Nascimento MD - Assessment and plan (1) Osteomyelitis Current Visit: Yes Status: Suspected Assessment and plan: Possible osteomyelitis involving the fifth metatarsal head per x-ray. Clinically, patient does not have significant pain or discharge at this site. We will obtain MRI. Consult podiatry. IV antibiotics. Check ESR, CRP. Control blood sugars. Follow culture results. Qualifiers: Osteomyelitis type: other Osteomyelitis location: foot Laterality: left Qualified Code(s): M86.8X7 - Other osteomyelitis, ankle and foot (2) COPD (chronic obstructive pulmonary disease) Current Visit: Yes Status: Chronic Assessment and plan: Not in acute exacerbation. Continue bronchodilators, Symbicort. Qualifiers: COPD type: chronic bronchitis Chronic bronchitis type: simple Qualified Code(s): J41.0 - Simple chronic bronchitis (3) Anxiety Current Visit: No Status: Chronic Assessment and plan: Patient takes Cymbalta and Seroquel at home. We will continue these medications. Also on Xanax as needed 3 times a day. (4) DVT prophylaxis Current Visit: No Status: Acute Assessment and plan: With subcutaneous heparin (5) Essential hypertension Current Visit: Yes Status: Chronic Assessment and plan: Continue home medications. Monitor blood pressure closely. Patient is on Lopressor 12.5 mg twice daily. (6) Type 2 diabetes mellitus Current Visit: Yes Status: Chronic Assessment and plan: Patient reports uncontrolled blood sugars. 257 here on initial presentation. Will place patient on sliding scale insulin. Diabetic diet. Check A1c. Diabetes education. Qualifiers: Diabetes mellitus fdc insulin use: without manager terminal use Diabetes mellitus complication status: with hyperglycemia Qualified Code(s): E11.65 - Type 2 diabetes mellitus with hyperglycemia - Time Spent With Patient Total time spent is greater than 50% in coordination of care (as documented) at patient's floor/unit and/or counseling patient:
[2018-04-05] MEDS ORDERED: D5% in Water 1,000 ML IVC PRN (16:57)
[2018-04-05] MEDS ORDERED: Dextrose Gel 15 GM/37.5 ML TUBE PO PRN ×2 (16:57)
[2018-04-05] MEDS ORDERED: *HR* Dextrose 50 % in Water (Syg) 50 ML SYRINGE IVP PRN (16:57)
[2018-04-05] MEDS ORDERED: Vancomycin 0 MG in 0.9 % Sodium Chloride 250 ML IVPB SCH (17:00)
[2018-04-05 17:31] LABS: C-Reactive Protein 47 mg/L (Less than 10)
[2018-04-05] MEDS: Gabapentin 400 MG CAPSULE PO SCH ×2 (18:02→19:32)
[2018-04-05] MEDS: Insulin LISPRO 300 UNITS/3 ML VIAL SQ SCH (18:02)
[2018-04-05] MEDS: *HR* OxyCODONE/APAP 10/325 TABLET PO PRN (19:32)
[2018-04-05 19:35] LABS: Estimated Average Glucose 295 mg/dl; Hemoglobin A1C 11.9 %
[2018-04-05] MEDS ORDERED: Insulin LISPRO 300 UNITS/3 ML VIAL SQ SCH (21:00)
[2018-04-05] MEDS: Budesonide/Formoterol 160/4.5 1 PUFF INH IH SCH (22:54)
[2018-04-05] MEDS: Piperacillin/Tazobactam 3.375 GM in 0.9 % Sodium Chloride Mini Bag 100 ML IVPB SCH (23:33)
[2018-04-06] MEDS: *HR* OxyCODONE/APAP 10/325 TABLET PO PRN ×5 (03:40→21:04)
[2018-04-06 08:02] LABS: Basophils # 0.1 K/mcL (0.0-0.2); Basophils % 1.1 %; Eosinophils # 0.3 K/mcL (0.0-0.6); Hematocrit 39.1 % (37.5-50.1); Immature Granulocytes % 0.8 % (0-4); Lymphocytes # 2.5 K/mcL (0.6-4.6); Mean Corpuscular Hemoglobin 28.5 pg (28.0-33.3); Mean Corpuscular Volume 89.3 fL (83.0-100.0); Mean Platelet Volume 13.5 fL (9.4-12.4); Monocytes # 0.5 K/mcL (0.0-1.3); Monocytes % 5.3 %; Neutrophils # 6.2 K/mcL (1.6-8.9); Platelet Count 197 K/mcL (140-400); Red Blood Count 4.38 M/mcL (4.19-5.50); Red Cell Distribution Width 13.6 % (11.5-14.5); Segmented Neutrophils % 63.8 %
[2018-04-06] MEDS: ALPRAZolam 1 MG TABLET PO PRN ×2 (08:03→19:04)
[2018-04-06] MEDS: Insulin LISPRO 300 UNITS/3 ML VIAL SQ SCH ×4 (08:04→20:53)
[2018-04-06] MEDS: Gabapentin 400 MG CAPSULE PO SCH ×4 (08:04→21:01)
[2018-04-06] MEDS: Cholecalciferol (D-3) 1,000 UNIT TABLET PO SCH (08:04)
[2018-04-06] MEDS: Piperacillin/Tazobactam 3.375 GM in 0.9 % Sodium Chloride Mini Bag 100 ML IVPB SCH ×3 (08:04→23:01)
[2018-04-06] MEDS: Aspirin Enteric Coated 81 MG Tablet PO SCH (08:04)
[2018-04-06 08:16] LABS: Hemoglobin 12.5 g/dL (12.9-16.9)
[2018-04-06 08:17] LABS: BUN/Creatinine Ratio 24 (6-26); Blood Urea Nitrogen 28 mg/dL (8-23); Calcium 8.6 mg/dL (8.6-10.3); Carbon Dioxide 28 mEq/L (23-29); Chloride 102 mEq/L (98-107); Glucose 376 mg/dL (70-105); Osmolality,Calculated 297 (280-300); Potassium 4.5 mEq/L (3.5-5.1); Sodium 133 mEq/L (136-145); eGFR For Non-African Americans > 60 (> 60)
[2018-04-06] MEDS: Budesonide/Formoterol 160/4.5 1 PUFF INH IH SCH ×2 (10:32→22:26)
--- NOTE | 2018-04-06 10:33 | Internal Med Progress Note ---
Hospitalist Progress Note - Encounter Date of Encounter: 04/06/18 Time of Encounter: 08:30 - Subjective Interval History: Patient is awake and alert. Denies any chest pain or palpitations. No shortness of breath. Denies any pain in his left foot. No fever or chills reported overnight. - Exam Vitals: Temp Pulse Resp BP Pulse Ox 97.7 F 67 18 110/72 94 04/06/18 06:39 04/06/18 06:39 04/06/18 06:39 04/06/18 06:39 04/06/18 06:39 Exam: General: Patient is alert, no acute distress, oriented x 3 Respiratory: Prolonged expiratory phase. Mild wheezing Cardiovascular: Regular rate and rhythm. s1 and s2 normal No clicks, rubs, gallops, or murmurs. No pedal edema Abdomen: Abdomen is soft, nontender. Bowel sounds are present Musculoskeletal: Spontaneously moving all extremities, dry wound/ulcer present on left foot plantar surface under the fifth metatarsal head. No discharge Skin: warm, dry, intact. Neuro: Alert oriented x 3 normal cranial nerves, no focal deficits - Assessment and Plan (1) Osteomyelitis Current Visit: Yes Status: Suspected Assessment and Plan: Awaiting MRI. Patient does have elevation in ESR and CRP. Continue IV antibiot ics. Podiatry consult in place. Moderate risk for complications. (2) Type 2 diabetes mellitus Current Visit: Yes Status: Chronic Assessment and Plan: Blood sugars remain elevated. Will add long-acting insulin and increase sliding scale coverage. (3) COPD (chronic obstructive pulmonary disease) Current Visit: Yes Status: Chronic Assessment and Plan: Stable. Not in acute exacerbation. (4) Anxiety Current Visit: Yes Status: Chronic Assessment and Plan: Continue Seroquel and Cymbalta (5) DVT prophylaxis Current Visit: No Status: Acute Assessment and Plan: On subcutaneous heparin (6) Essential hypertension Current Visit: Yes Status: Chronic Assessment and Plan: Continue metoprolol. Blood pressure is well controlled at this time - Time Spent with Patient Total time spent is greater than 50% in coordination of care (as documented) at patient's floor/unit and/or counseling patient: Internal Medicine: Result - Labs CBC & Chem 7: 04/06/18 07:20 04/06/18 07:20 Labs: Short CBC 04/05/18 04/06/18 Range/Units 14:32 07:20 WBC 13.7 H 9.7 (4.3-11.1) K/mcL Hgb 14.6 12.5 L D (12.9-16.9) g/dL Hct 44.4 39.1 (37.5-50.1) % Plt Count 241 197 (140-400) K/mcL Neutrophils # 9.6 H 6.2 (1.6-8.9) K/mcL BMP 04/05/18 04/06/18 14:32 07:20 Sodium 138 133 L Potassium 5.1 4.5 Chloride 96 L 102 Carbon Dioxide 35 H 28 BUN 26 H 28 H Creatinine 1.23 1.19 Glucose 260 H 376 H Calcium 9.7 8.6 - Impressions Impressions Foot X-Ray 04/05/18 14:32 IMPRESSION: Focal soft tissue swelling and soft tissue ulceration along the lateral aspect of the foot at the level of the 5th MTP joint suggesting cellulitis. Subtle lucency of the 5th metatarsal head may represent early osteomyelitis. MRI would be more sensitive. D/ / 04/05/2018 15:22:37 Hari Nascimento MD / ewa Interpreting Provider: Hari Nascimento MD Consult Discharge Plan - Plan [facility]errals: [facility] [Primary Care Provider] - __ (1) Osteomyelitis Qualifiers: Osteomyelitis type: other Osteomyelitis location: foot Laterality: left Qualified Code(s): M86.8X7 - Other osteomyelitis, ankle and foot (2) Type 2 diabetes mellitus Qualifiers: Diabetes mellitus snf insulin use: without long term care phlebotomist use Diabetes mellitus complication status: with hyperglycemia Qualified Code(s): E11.65 - Type 2 diabetes mellitus with hyperglycemia (3) COPD (chronic obstructive pulmonary disease) Qualifiers: COPD type: chronic bronchitis Chronic bronchitis type: simple Qualified Code(s): J41.0 - Simple chronic bronchitis
[2018-04-06] MEDS: Insulin DETEMIR 100 UNIT/ML X5UNITS SQ SCH ×2 (12:04→21:00)
--- NOTE | 2018-04-06 12:26 | Podiatry Consult Note ---
Date of Encounter: 04/06/18 Time of Encounter: 12:00 Assessment and Plan (1) Osteomyelitis Current visit: Yes Status: Acute Assessment: Glass stage II diabetic ulceration sub mt head #5 left with purulent drainage and possible osteomyelitis PLAN: Sharp debridement of hyperkeratosis covering wound completed at bedside using #15 sterile blade Painted wound with betadine prior to procedure No complications Large amount of thick white bloody drainage expressed No odor noted 2cm undermining noted to entire wound without noted probe to bone Cultures obtained and placed at bedside- instructed BK alvarez to place orders and send to lab Flushed with saline adaptic, 4x4 and bulk dressing applied Limited weight bearing to left foot May eat today Pending MRI- if osteo present will plan for formal debridement on friday with Change dressing daily Call with any issues or concerns. Consider ID consult depending on MRI results Qualifiers: Osteomyelitis type: other acute Osteomyelitis location: foot Laterality: left Qualified Code(s): M86.172 - Other acute osteomyelitis, left ankle and foot History of Present Illness HPI: Mr. Glasgow is a 62 year old male with a long standing hx of uncontrolled DM and COPD. He presented to the ED with complaints of ulceration of the left foot- Patient states that wound opened 1 week ago. States that [facility]" however reports that wound has not been open for 2 years, only 1 week. Patient denies any known trauma. States that foot is painful 09/14. Patient reports that glucose was in the 500's last week and a1c was drawn showing a1c of 11.6. Patient denies any fever, chills, n/v or fls. Patient resting comfortably in bed on arrival. Patient was started on IV antibiotics and admitted to floor for management. Xrays showed possible osteo and MRI has been ordered. 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 - Social History Smoking Status: Former smoker Smokeless Tobacco Status: No Alcohol use: none Drug use: none - Family History Mother Age: 82 Living Status: Still Living Hx Family Endocrine Disorder: Yes (Diabetes) Medications and Allergies RX: Albuterol Sulfate [Proair Hfa] 2 puff IH Q6H PRN 06/25/17 [History] RX: Aspirin [Lo-Dose Aspirin EC] 81 mg PO DAILY 06/25/17 [History] RX: Baclofen [Lioresal] 10 mg PO TID PRN 06/25/17 [History] RX: Budesonide/Formoterol 160/4.5 [Symbicort 160/4.5] 2 puff IH BIDR 06/25/17 [History] RX: Diclofenac Sodium [Voltaren] 75 mg PO BID PRN 06/25/17 [History] RX: Gabapentin [Neurontin] 800 mg PO QID 06/25/17 [History] RX: Metformin HCl [Glucophage] 1,000 mg PO BID 06/25/17 [History] RX: Montelukast [Singulair] 10 mg PO DAILY 06/25/17 [History] RX: Multivit-Min/FA/Lycopen/Lutein [A Thru Z Select Men 50+ Tablet] 1 tab PO DAILY 06/25/17 [History] RX: Sildenafil Citrate 100 mg PO DAILY PRN 06/25/17 [History] RX: ALPRAZolam [Xanax 1 MG Tablet] 1 mg PO TID PRN 12/29/17 [History] RX: Albuterol Neb [Proventil Neb] 2.5 mg IH Q6H PRN 12/29/17 [History] RX: Duloxetine HCl [Cymbalta] 60 mg PO DAILY 12/29/17 [History] RX: Metoprolol [Lopressor] 12.5 mg PO BID 12/29/17 [History] RX: Cholecalciferol (D-3) [Vitamin D] 2,000 unit PO DAILY 04/05/18 [History] RX: Quetiapine Fumarate [Seroquel] 100 mg PO HS 04/05/18 [History] RX: Tiotropium [place] [Spiriva Respimat] 2 puff IH DAILY 04/05/18 [History] Insulin DETEMIR [Levemir] 30 unit SQ HS 30 Days #10 mls 04/08/18 [Rx] Insulin LISPRO [HumaLOG] 12 units SQ TIDWM 30 Days #10 vial 04/08/18 [Rx] RX: Doxycycline 100 mg PO BID 7 Days #14 capsule 04/08/18 [Rx] RX: OxyCODONE/APAP 10/325 [Percocet 10/325 MG] 1 each PO Q6HR PRN 5 Days #15 tablet 04/08/18 [Rx] Allergy/AdvReac Type Severity Reaction Status Date / Time No Known Allergies Allergy Verified 04/05/18 14:28 All Systems Reviewed: The remainder of the systems were reviewed and are negative Physical Exam - Constitutional Vitals: Temp Pulse Resp BP Pulse Ox 97.8 F 64 14 90/52 93 04/06/18 10:50 04/06/18 10:50 04/06/18 10:50 04/06/18 10:50 04/06/18 10:50 Exam: General Examination: CONSTITUTIONAL: Alert, oriented, in no acute distress, non-toxic. EXTREMITIES: CFT 3 seconds all toes. Edema +1 and pedal pulses palpable. SKIN: Skin with decreased turgor, decreased subcutaneous tissue, skin thin and shiny with trophic changes associated with comorbidities as described in history.. NEUROLOGIC: moderately diminished sensation to touch. Intact sensation to pain - reports pain with probe and manipulation of wound .ULCER: Glass stage II diabetic ulceration sub mt head #5 left foot Thick overlying hyperkeratosis debrided revealing a 0.4cmx0.4cmx0.3cm ulceration with undermining of 2cm to entire circumference of wound. large amount of thick white/bloody drainage expressed without odor. no noted probe to bone. minimal surrounding warmth or erythema. Mild edema to foot. No ascending cellulitis or streaking. no lymphangitis. Results - Labs Result Diagrams: 04/07/18 06:37 04/07/18 06:37 Labs: Abnormal lab results Hgb 12.5 g/dL (12.9-16.9) L D 04/06/18 07:20 MPV 13.5 fL (9.4-12.4) H 04/06/18 07:20 ESR 76 mm/hr (0-10) H 04/05/18 14:32 VBG pO2 90 mmHg (25-50) H 04/05/18 15:02 VBG HCO3 32 mEq/L (21-27) H 04/05/18 15:02 Sodium 133 mEq/L (136-145) L 04/06/18 07:20 BUN 28 mg/dL (8-23) H 04/06/18 07:20 Glucose 376 mg/dL (70-105) H 04/06/18 07:20 POC Glucose 224 mg/dL (70-99) H 04/05/18 17:51 Hemoglobin A1c 11.9 % (-5.6) H 04/05/18 14:32 C-Reactive Protein 47 mg/L (Less than 10) H 04/05/18 14:32 H & H 04/05/18 04/06/18 Range/Units 14:32 07:20 Hgb 14.6 12.5 L D (12.9-16.9) g/dL Hct 44.4 39.1 (37.5-50.1) % All other labs normal. Consult Discharge Plan - Plan [facility]errals: [facility] [Primary Care Provider] - Prescriptions: RX: Doxycycline 100 mg PO BID 7 Days #14 capsule Insulin DETEMIR [Levemir] 30 unit SQ HS 30 Days #10 mls Insulin LISPRO [HumaLOG] 12 units SQ TIDWM 30 Days #10 vial RX: OxyCODONE/APAP 10/325 [Percocet 10/325 MG] 1 each PO Q6HR PRN 5 Days #15 tablet PRN Reason: Pain
[2018-04-06] MEDS: *HR* Heparin 5,000 UNIT/ML VIAL SQ SCH (17:31)
[2018-04-07] MEDS: *HR* Heparin 5,000 UNIT/ML VIAL SQ SCH ×2 (05:58→17:19)
[2018-04-07 07:11] LABS: Basophils # 0.1 K/mcL (0.0-0.2); Basophils % 1.1 %; Eosinophils # 0.4 K/mcL (0.0-0.6); Eosinophils % 4.3 %; Hemoglobin 11.9 g/dL (12.9-16.9); Immature Granulocytes % 1.3 % (0-4); Lymphocytes # 2.4 K/mcL (0.6-4.6); Lymphocytes % 28.1 %; Mean Corpuscular HGB Conc 32.2 g/dL (31.6-35.5); Mean Corpuscular Volume 90.2 fL (83.0-100.0); Mean Platelet Volume 13.1 fL (9.4-12.4); Monocytes # 0.5 K/mcL (0.0-1.3); Monocytes % 5.4 %; Neutrophils # 5.1 K/mcL (1.6-8.9); Platelet Count 181 K/mcL (140-400); Red Cell Distribution Width 13.5 % (11.5-14.5); Segmented Neutrophils % 59.8 %
[2018-04-07 07:22] LABS: BUN/Creatinine Ratio 27 (6-26); Blood Urea Nitrogen 29 mg/dL (8-23); Calcium 8.4 mg/dL (8.6-10.3); Carbon Dioxide 30 mEq/L (23-29); Chloride 104 mEq/L (98-107); Glucose 314 mg/dL (70-105); Osmolality,Calculated 302 (280-300); Potassium 4.6 mEq/L (3.5-5.1); Sodium 137 mEq/L (136-145); eGFR For Non-African Americans > 60 (> 60)
[2018-04-07] MEDS: Aspirin Enteric Coated 81 MG Tablet PO SCH (08:35)
[2018-04-07] MEDS: Piperacillin/Tazobactam 3.375 GM in 0.9 % Sodium Chloride Mini Bag 100 ML IVPB SCH ×2 (08:35→17:06)
[2018-04-07] MEDS: Cholecalciferol (D-3) 1,000 UNIT TABLET PO SCH (08:35)
[2018-04-07] MEDS: Gabapentin 400 MG CAPSULE PO SCH ×4 (08:35→21:16)
[2018-04-07] MEDS: *HR* OxyCODONE/APAP 10/325 TABLET PO PRN ×3 (08:38→21:16)
[2018-04-07] MEDS: Insulin DETEMIR 100 UNIT/ML X5UNITS SQ SCH ×2 (08:41→21:20)
[2018-04-07] MEDS: Insulin LISPRO 300 UNITS/3 ML VIAL SQ SCH ×4 (08:42→21:20)
[2018-04-07] MEDS: Budesonide/Formoterol 160/4.5 1 PUFF INH IH SCH ×2 (09:39→20:41)
--- NOTE | 2018-04-07 10:46 | Internal Med Progress Note ---
Hospitalist Progress Note - Encounter Date of Encounter: 04/07/18 Time of Encounter: 10:40 - Subjective Interval History: 62 year old male patient with a history of diabetes mellitus, chronic back pain, COPD who presented to the ER with complaints of ulcer on his left foot that has been going on for one week. He had seen his primary care provider at the [facility] who had prescribed him Levaquin. - Exam Vitals: Temp Pulse Resp BP Pulse Ox 97.5 F L 83 20 109/69 92 04/07/18 07:07 04/07/18 07:07 04/07/18 09:39 04/07/18 07:07 04/07/18 09:39 Exam: General: Patient is alert, no acute distress, oriented x 3 Respiratory: Prolonged expiratory phase. Mild wheezing Cardiovascular: Regular rate and rhythm. s1 and s2 normal No clicks, rubs, gallops, or murmurs. No pedal edema Abdomen: Abdomen is soft, nontender. Bowel sounds are present Musculoskeletal: Spontaneously moving all extremities, dry wound/ulcer present on left foot plantar surface under the fifth metatarsal head. No discharge Skin: warm, dry, intact. Neuro: Alert oriented x 3 normal cranial nerves, no focal deficits - Assessment and Plan (1) Osteomyelitis Current Visit: Yes Status: Suspected Assessment and Plan: MRI done and read pending. Patient does have elevation in ESR and CRP. Co ntinue IV antibiotics. Podiatry consult in place. Moderate risk for complications. (2) Essential hypertension Current Visit: Yes Status: Chronic Assessment and Plan: Continue metoprolol. Blood pressure is well controlled at this time (3) Type 2 diabetes mellitus Current Visit: Yes Status: Chronic Assessment and Plan: Blood sugars remain elevated. Will add long-acting insulin and increase sliding scale coverage. (4) Anxiety Current Visit: Yes Status: Chronic Assessment and Plan: Continue Seroquel and Cymbalta (5) DVT prophylaxis Current Visit: No Status: Acute Assessment and Plan: On subcutaneous heparin (6) COPD (chronic obstructive pulmonary disease) Current Visit: Yes Status: Chronic Assessment and Plan: Stable. Not in acute exacerbation. - Time Spent with Patient Total time spent is greater than 50% in coordination of care (as documented) at patient's floor/unit and/or counseling patient: Internal Medicine: Result - Labs CBC & Chem 7: 04/07/18 06:37 04/07/18 06:37 Labs: Short CBC 04/07/18 Range/Units 06:37 WBC 8.5 (4.3-11.1) K/mcL Hgb 11.9 L (12.9-16.9) g/dL Hct 37.0 L (37.5-50.1) % Plt Count 181 (140-400) K/mcL Neutrophils # 5.1 (1.6-8.9) K/mcL BMP 04/07/18 06:37 Sodium 137 Potassium 4.6 Chloride 104 Carbon Dioxide 30 H BUN 29 H Creatinine 1.08 Glucose 314 H Calcium 8.4 L - Impressions Impressions Foot X-Ray 04/05/18 14:32 IMPRESSION: Focal soft tissue swelling and soft tissue ulceration along the lateral aspect of the foot at the level of the 5th MTP joint suggesting cellulitis. Subtle lucency of the 5th metatarsal head may represent early osteomyelitis. MRI would be more sensitive. D/ / 04/05/2018 15:22:37 Hari Nascimento MD / ewa Interpreting Provider: Hari Nascimento MD Foot MRI 04/05/18 16:42 IMPRESSION: No osteomyelitis. Diffuse soft tissue edema. No fluid collection. Some atrophy of the musculature of the feet with diffuse mild edema throughout the musculature which may be reactive or related to myositis. D/ / Dalia Lopes MD / Dalia Lopes MD Interpreting Provider: Dalia Lopes MD Consult Discharge Plan - Plan [facility]errals: [facility] [Primary Care Provider] - (1) Osteomyelitis Qualifiers: Osteomyelitis type: other Osteomyelitis location: foot Laterality: left Qualified Code(s): M86.8X7 - Other osteomyelitis, ankle and foot (3) Type 2 diabetes mellitus Qualifiers: Diabetes mellitus terminal press operator insulin use: without senior care use Diabetes mellitus complication status: with hyperglycemia Qualified Code(s): E11.65 - Type 2 diabetes mellitus with hyperglycemia (6) COPD (chronic obstructive pulmonary disease) Qualifiers: COPD type: chronic bronchitis Chronic bronchitis type: simple Qualified Code(s): J41.0 - Simple chronic bronchitis
--- NOTE | 2018-04-07 13:24 | Podiatry Progress Note ---
Date of Encounter: 04/07/18 Time of Encounter: 12:50 - Assessment and Plan (1) Chronic ulcer of toe of left foot with fat layer exposed Current Visit: Yes Status: Acute discussed condition with patient. personally reviewed his xray and MRI images. discussed results with patient. continue with local wound care. will require home care with dressing changes at home 3x/wk with gentimicin cream, 4x4 gauze and kerlix and follow up in wound care center upon discharge. patient says he does not want to go back to [place] for care of the ulceration. f/u cultures obtained by podiatry conference specialist and d/c on oral antibiotics based on sensitivity. Subjective Interval history: being seen for f/u of left foot ulceration. says he had his MRI done. denies feeling like he experienced f/c/n/v/sob/cp. ROS: as above in HPI Objective - Vital Signs Vital Signs: Vital Signs Temp Pulse Resp BP Pulse Ox 04/07/18 11:18 97.6 F 78 18 121/73 04/07/18 09:39 20 92 04/07/18 08:59 92 04/07/18 07:07 97.5 F L 83 20 109/69 92 04/06/18 23:11 97.9 F 76 14 102/66 90 04/06/18 22:26 16 92 04/06/18 20:44 98.3 F 80 14 137/78 90 04/06/18 16:47 98.4 F 103 16 103/68 97 Intake and Output 04/06/18 04/07/18 04/07/18 23:59 07:59 15:59 Intake Total 220 / 220 600 / 600 1160 / 1160 Balance 220 / 220 600 / 600 1160 / 1160 Intake: IV Fluids 100 / 100 600 / 600 500 / 500 Zosyn 3.375 GM In 0.9 % Sodium 100 / 100 100 / 100 Chloride (Mini-Bag +) 100 ML @ 25 mls/hr IVPB Q8HR [facility] Rx#: [id number] Vancocin 1,750 MG In 0.9 % 500 / 500 500 / 500 Sodium Chloride 500 ML @ 333.3 mls/hr IVPB Q12H [facility] Rx#: [id number] Oral 120 / 120 660 / 660 Other: Meal Breakfast Percent of Meal Consumed 100% # Voids 1 Blood Glucose* 290 357 173 - Exam Exam: well developed and nourished male in no acute distress Vasc: CFT < 3 sec x 5 digits left foot. left foot is warm to touch. mild edema. Derm: ulceration plantar lateral aspect 5th met head 1.5cmx1.5cmx0.3cm. does not probe to bone, surrounding erythema has resolved. mild hyperkeratosis. no fluctuance. Musc: no pain with palpation of ulceration site. no pain with MTP joint ROM. digital contractures. Neuro: absent protective sensation. xray-no cortical destruction MRI-no osteomyelitis - Lab Result Diagrams: 04/07/18 06:37 04/07/18 06:37 Labs: Abnormal lab results RBC 4.10 M/mcL (4.19-5.50) L 04/07/18 06:37 Hgb 11.9 g/dL (12.9-16.9) L 04/07/18 06:37 Hct 37.0 % (37.5-50.1) L 04/07/18 06:37 MPV 13.1 fL (9.4-12.4) H 04/07/18 06:37 ESR 76 mm/hr (0-10) H 04/05/18 14:32 VBG pO2 90 mmHg (25-50) H 04/05/18 15:02 VBG HCO3 32 mEq/L (21-27) H 04/05/18 15:02 Carbon Dioxide 30 mEq/L (23-29) H 04/07/18 06:37 BUN 29 mg/dL (8-23) H 04/07/18 06:37 BUN/Creatinine Ratio 27 (6-26) H 04/07/18 06:37 Glucose 314 mg/dL (70-105) H 04/07/18 06:37 POC Glucose 187 mg/dL (70-99) H 04/06/18 16:53 Hemoglobin A1c 11.9 % (-5.6) H 04/05/18 14:32 Calculated Osmolality 302 (280-300) H 04/07/18 06:37 Calcium 8.4 mg/dL (8.6-10.3) L 04/07/18 06:37 C-Reactive Protein 47 mg/L (Less than 10) H 04/05/18 14:32 Vancomycin Trough 19 mcg/mL (5-10) H 04/07/18 06:37 Microbiology, Last 48 Hours 04/05/18 15:56 Blood Culture - Preliminary Peripheral Venipuncture Culture is incubating and being continuously monitored for growth. Final report to follow. 04/05/18 15:53 Blood Culture - Preliminary Peripheral Venipuncture Culture is incubating and being continuously monitored for growth. Final report to follow. Consult Discharge Plan - Plan [facility]errals: [facility] [Primary Care Provider] -
[2018-04-07] MEDS: Ipratropium/Albuterol Neb 3 ML IH PRN (20:42)
[2018-04-07] MEDS: ALPRAZolam 1 MG TABLET PO PRN (21:15)
[2018-04-08] MEDS: Piperacillin/Tazobactam 3.375 GM in 0.9 % Sodium Chloride Mini Bag 100 ML IVPB SCH ×2 (00:03→08:21)
[2018-04-08] MEDS: Ipratropium/Albuterol Neb 3 ML IH PRN (04:52)
[2018-04-08] MEDS: *HR* OxyCODONE/APAP 10/325 TABLET PO PRN (06:06)
[2018-04-08] MEDS: *HR* Heparin 5,000 UNIT/ML VIAL SQ SCH (06:52)
[2018-04-08] MEDS ORDERED: 0.9 % Sodium Chloride 500 ML IVC ONE (06:55)
[2018-04-08] MEDS: Budesonide/Formoterol 160/4.5 1 PUFF INH IH SCH (08:07)
[2018-04-08] MEDS: Insulin LISPRO 300 UNITS/3 ML VIAL SQ SCH ×3 (08:20→17:13)
[2018-04-08] MEDS: Insulin DETEMIR 100 UNIT/ML X5UNITS SQ SCH (08:21)
[2018-04-08] MEDS: Aspirin Enteric Coated 81 MG Tablet PO SCH (08:21)
[2018-04-08] MEDS: Cholecalciferol (D-3) 1,000 UNIT TABLET PO SCH (08:21)
[2018-04-08] MEDS: Gabapentin 400 MG CAPSULE PO SCH ×3 (08:23→17:13)
--- NOTE | 2018-04-08 10:54 | Podiatry Progress Note ---
Date of Encounter: 04/08/18 Time of Encounter: 09:45 - Assessment and Plan (1) Chronic ulcer of toe of left foot with fat layer exposed Current Visit: Yes Status: Acute Assessment: Glass stage II diabetic ulcer of submetatarsal #5 Hyperkeratotic tissue noted around ulceration Wound bed with fibrinous tissue noted Does not probe to bone, no fluctuance noted, no foul odor noted. No erythema or edema noted WBC 8.5 MRI negative OM BC negative, prelim Wound cultures, obtained, no report at this time Plan: Cleansed with 0.9 NS. Covered with adaptic, 4x4 dry gauze, and kerlex. Continue with local wound care. Orders placed. Change dressing 3x a week. Follow up in wound care center. Subjective Interval history: Patient awake, alert and oriented x 3. Sitting on side of bed. Reports pain that is controlled with pain medication, although he states that he would like medication that would work faster. Denies calf pain, chest pain, or shortness of breath. Denies fevers, chills, nausea, vomiting, or diarrhea. Objective - Vital Signs Vital Signs: Vital Signs Temp Pulse Resp BP Pulse Ox 04/08/18 08:15 58 94/60 04/08/18 08:07 20 92 04/08/18 06:46 97.7 F 63 20 89/53 93 04/08/18 04:53 16 98 04/08/18 04:19 97.6 F 78 14 100/66 93 04/08/18 00:51 97.6 F 66 18 117/75 94 04/07/18 21:19 98.2 F 80 22 119/66 93 04/07/18 20:44 16 91 04/07/18 15:30 97.8 F 81 18 123/77 92 04/07/18 11:18 97.6 F 78 18 121/73 Intake and Output 04/07/18 04/08/18 04/08/18 23:59 07:59 15:59 Intake Total 710 / 710 130 / 130 Output Total 0 / 0 Balance 710 / 710 130 / 130 Intake: IV Fluids 350 / 350 130 / 130 Zosyn 3.375 GM In 0.9 % Sodium 100 / 100 100 / 100 Chloride (Mini-Bag +) 100 ML @ 25 mls/hr IVPB Q8HR [facility] Rx#: [id number] Vancocin 1,250 MG In 0.9 % 250 / 250 30 / 30 Sodium Chloride 250 ML @ 166.67 mls/hr IVPB Q12H [facility] Rx#: [id number] Oral 360 / 360 0 / 0 Output: Urine 0 / 0 Other: Meal Dinner Percent of Meal Consumed 100% # Voids 1 Weight 125.28 kg Blood Glucose* 274 298 Patient Weight 04/08/18 23:59 Weight 125.28 kg - Exam Exam: Constitiutional: Alert and oriented x 3. Vascular: 2/4 DP/PT LLE, CFT <3 sec to all digits LLE, warm to warm from tibia to toes LLE, rubor noted to BLE, 1/4 edema noted LLE Neurologic: Diminished sensation to touch, normal plantar response, Abnormal position sense dorsiflexion/plantar flexion Dermatologic: Left submetatarsal #5 ulcer measuring 1.5cmx1.5cmx0.3cm, hyperkeratotic tissue noted to surrounding woud bed. No erythema noted, no streaking noted, no drainage, no foul odor. Musculoskeletal: 3/5 muscle strength and normal tone LLE. - Lab Result Diagrams: 04/07/18 06:37 04/07/18 06:37 Labs: Abnormal lab results RBC 4.10 M/mcL (4.19-5.50) L 04/07/18 06:37 Hgb 11.9 g/dL (12.9-16.9) L 04/07/18 06:37 Hct 37.0 % (37.5-50.1) L 04/07/18 06:37 MPV 13.1 fL (9.4-12.4) H 04/07/18 06:37 ESR 76 mm/hr (0-10) H 04/05/18 14:32 VBG pO2 90 mmHg (25-50) H 04/05/18 15:02 VBG HCO3 32 mEq/L (21-27) H 04/05/18 15:02 Carbon Dioxide 30 mEq/L (23-29) H 04/07/18 06:37 BUN 29 mg/dL (8-23) H 04/07/18 06:37 BUN/Creatinine Ratio 27 (6-26) H 04/07/18 06:37 Glucose 314 mg/dL (70-105) H 04/07/18 06:37 POC Glucose 305 mg/dL (70-99) H 04/07/18 16:41 Hemoglobin A1c 11.9 % (-5.6) H 04/05/18 14:32 Calculated Osmolality 302 (280-300) H 04/07/18 06:37 Calcium 8.4 mg/dL (8.6-10.3) L 04/07/18 06:37 C-Reactive Protein 47 mg/L (Less than 10) H 04/05/18 14:32 Vancomycin Trough 19 mcg/mL (5-10) H 04/07/18 06:37 Consult Discharge Plan - Plan [facility]errals: [facility] [Primary Care Provider] -
[2018-04-08] MEDS ORDERED: Gentamicin Oint 15 GM TUBE TP SCH (11:15)
--- NOTE | 2018-04-08 12:31 | Discharge Summary ---
Orders not resulted at time of discharge: Pending orders 04/09/18 04:00 Basic Metabolic Panel AM 0400 CBC [Complete Blood Count] [HEME] AM 0400 Magnesium AM 0400 Phosphorous AM 0400 04/10/18 04:00 Basic Metabolic Panel AM 0400 CBC [Complete Blood Count] [HEME] AM 0400 Magnesium AM 0400 Phosphorous AM 0400 04/11/18 04:00 Basic Metabolic Panel AM 0400 CBC [Complete Blood Count] [HEME] AM 0400 Magnesium AM 0400 Phosphorous AM 0400 04/12/18 04:00 Basic Metabolic Panel AM 0400 CBC [Complete Blood Count] [HEME] AM 0400 Magnesium AM 0400 Phosphorous AM 0400 04/13/18 04:00 Basic Metabolic Panel AM 0400 CBC [Complete Blood Count] [HEME] AM 0400 Magnesium AM 0400 Phosphorous AM 0400 04/14/18 04:00 Basic Metabolic Panel AM 0400 CBC [Complete Blood Count] [HEME] AM 0400 Magnesium AM 0400 Phosphorous AM 0400 04/05/18 14:30 EKG [ECG 12 lead ECG] [ECG] Stat 04/05/18 15:56 Culture,Blood [BC] Stat 04/06/18 12:10 Culture,Wound [RM] Routine Date of Encounter: 04/08/18 Time of Encounter: 12:30 - Discharge Diagnosis (1) Osteomyelitis Priority: Primary Status: Suspected Assessment and Plan: 62 year old male patient with a history of diabetes mellitus, chronic back pain, COPD who presented to the ER with complaints of ulcer on his left foot that has been going on for one week. [facility]. Patient states that he took 3 days of Levaquin with no improvement in his symptoms. He has also been checking his blood sugars over the past week and he notices that there were severely elevated. 3 days back his blood sugars were in the 500s. Patient takes metformin at home for his diabetes. He was assessed with foot ulcer r/o osteomyelits and uncontrolled DM/ hyperglycemia. MRI was done and showed no evidence of osteomyelitis. He was seen by podiatry who determined he could be discharged on doxycycline and follow up with them as an outpatient. Blood cultures so far negative and wound cultures pending. These will be followed by podiatry. He will get wound care on discharge. He also had uncontrolled DM 2 with an A1c fof 12. He was counseled that he needs to beon insulin and was prescribed levemir and humalog on discharge along with diabetes supplies. He was discharged in a stable condition. 35 minutes was spent discharging this patient Qualifiers: Osteomyelitis type: other Osteomyelitis location: foot Laterality: left Qualified Code(s): M86.8X7 - Other osteomyelitis, ankle and foot (2) Essential hypertension Priority: Primary Status: Chronic (3) Type 2 diabetes mellitus Priority: Primary Status: Chronic Qualifiers: Diabetes mellitus fdc insulin use: without watermaster use Diabetes mellitus complication status: with hyperglycemia Qualified Code(s): E11.65 - Type 2 diabetes mellitus with hyperglycemia (4) Anxiety Priority: Primary Status: Chronic (5) DVT prophylaxis Priority: Primary Status: Acute (6) COPD (chronic obstructive pulmonary disease) Priority: Primary Status: Chronic Qualifiers: COPD type: chronic bronchitis Chronic bronchitis type: simple Qualified Code(s): J41.0 - Simple chronic bronchitis Hospital course: Mr. Glasgow is a 62 year old male - Time Spent with Patient Total time spent providing and/or coordinating discharge services: - Discharge Medications Prescriptions: OxyCODONE/APAP 10/325 [Percocet 10/325 MG] 1 each PO Q6HR PRN 5 Days #15 tablet PRN Reason: Pain Doxycycline 100 mg PO BID 7 Days #14 capsule Insulin DETEMIR [Levemir] 30 unit SQ HS 30 Days #10 mls Insulin LISPRO [HumaLOG] 12 units SQ TIDWM 30 Days #10 vial Home Medications: Albuterol Sulfate [Proair Hfa] 2 puff IH Q6H PRN 06/25/17 [History] Aspirin [Lo-Dose Aspirin EC] 81 mg PO DAILY 06/25/17 [History] Baclofen [Lioresal] 10 mg PO TID PRN 06/25/17 [History] Budesonide/Formoterol 160/4.5 [Symbicort 160/4.5] 2 puff IH BIDR 06/25/17 [History] Diclofenac Sodium [Voltaren] 75 mg PO BID PRN 06/25/17 [History] Gabapentin [Neurontin] 800 mg PO QID 06/25/17 [History] Metformin HCl [Glucophage] 1,000 mg PO BID 06/25/17 [History] Montelukast [Singulair] 10 mg PO DAILY 06/25/17 [History] Multivit-Min/FA/Lycopen/Lutein [A Thru Z Select Men 50+ Tablet] 1 tab PO DAILY 06/25/17 [History] Sildenafil Citrate 100 mg PO DAILY PRN 06/25/17 [History] ALPRAZolam [Xanax 1 MG Tablet] 1 mg PO TID PRN 12/29/17 [History] Albuterol Neb [Proventil Neb] 2.5 mg IH Q6H PRN 12/29/17 [History] Duloxetine HCl [Cymbalta] 60 mg PO DAILY 12/29/17 [History] Metoprolol [Lopressor] 12.5 mg PO BID 12/29/17 [History] Cholecalciferol (D-3) [Vitamin D] 2,000 unit PO DAILY 04/05/18 [History] Quetiapine Fumarate [Seroquel] 100 mg PO HS 04/05/18 [History] Tiotropium [place] [Spiriva Respimat] 2 puff IH DAILY 04/05/18 [History] Doxycycline 100 mg PO BID 7 Days #14 capsule 04/08/18 [Rx] Insulin DETEMIR [Levemir] 30 unit SQ HS 30 Days #10 mls 04/08/18 [Rx] Insulin LISPRO [HumaLOG] 12 units SQ TIDWM 30 Days #10 vial 04/08/18 [Rx] OxyCODONE/APAP 10/325 [Percocet 10/325 MG] 1 each PO Q6HR PRN 5 Days #15 tablet 04/08/18 [Rx] Allergies/Adverse Reactions: Allergy/AdvReac Type Severity Reaction Status Date / Time No Known Allergies Allergy Verified 04/05/18 14:28 Date of admission: 04/08/18 08:58 Primary care physician: [facility] Consults: 04/08/18 10:57 Consult to [facility] [CONS] Routine Reason for SW Consult: discharge planning 04/05/18 16:07 Consult to Podiatry [CONS] Stat Consulting Provider: Pod[facility]ry [facility] Reason for Consult: Left foot ulcer with concern for osteomyelitis Time Notified: 16:07 Call Completed: Yes - Constitutional Vitals: Temp Pulse Resp BP Pulse Ox 97.6 F 60 16 112/57 95 04/08/18 11:06 04/08/18 11:06 04/08/18 11:06 04/08/18 11:06 04/08/18 11:06 General appearance: Present: cooperative, A&O X 3, pleasant, answers questions appropriately Exam: General: Patient is alert, no acute distress, oriented x 3 Respiratory: Prolonged expiratory phase. Mild wheezing Cardiovascular: Regular rate and rhythm. s1 and s2 normal No clicks, rubs, gallops, or murmurs. No pedal edema Abdomen: Abdomen is soft, nontender. Bowel sounds are present Musculoskeletal: Spontaneously moving all extremities, dry wound/ulcer present on left foot plantar surface under the fifth metatarsal head. No discharge Skin: warm, dry, intact. Neuro: Alert oriented x 3 normal cranial nerves, no focal deficits - Patient Status Disposition: Home, Self-Care Condition: Good - Discharge Instructions Instructions: Diabetes Mellitus Type 2 in Adults (DC) Follow Up With: Thee Lynn DPM [Partnered Physician] - 04/16/18 8:00 am [facility] Care [facility] -
--- NOTE | 2018-04-08 13:00 | Physician Discharge Referral ---
Home Health/Hosp Referral Info Transfer to: Home Health - Diagnosis (1) Osteomyelitis Priority: Primary Status: Suspected (2) Essential hypertension Priority: Primary Status: Chronic (3) Type 2 diabetes mellitus Priority: Primary Status: Chronic (4) Anxiety Priority: Primary Status: Chronic (5) DVT prophylaxis Priority: Primary Status: Acute (6) COPD (chronic obstructive pulmonary disease) Priority: Primary Status: Chronic - Respiratory Orders Smoking Cessation: Smoking cessation has been advised. For more information, call the [place] [employer] Quit Line at [phone]. - Diet/Nutrition Diet/Nutrition Orders: Cardiac - Activity Activity Orders: Ambulate - Services Needed Following services are medically necessary services: Nursing, Home Health Aide, Physical Therapy Home Care Orders: Wound care Other Treatments: Wound care - Transfer Medications Prescriptions: OxyCODONE/APAP 10/325 [Percocet 10/325 MG] 1 each PO Q6HR PRN 5 Days #15 tablet PRN Reason: Pain Doxycycline 100 mg PO BID 7 Days #14 capsule Insulin DETEMIR [Levemir] 30 unit SQ HS 30 Days #10 mls Insulin LISPRO [HumaLOG] 12 units SQ TIDWM 30 Days #10 vial Home Medications: Albuterol Sulfate [Proair Hfa] 2 puff IH Q6H PRN 06/25/17 [History] Aspirin [Lo-Dose Aspirin EC] 81 mg PO DAILY 06/25/17 [History] Baclofen [Lioresal] 10 mg PO TID PRN 06/25/17 [History] Budesonide/Formoterol 160/4.5 [Symbicort 160/4.5] 2 puff IH BIDR 06/25/17 [History] Diclofenac Sodium [Voltaren] 75 mg PO BID PRN 06/25/17 [History] Gabapentin [Neurontin] 800 mg PO QID 06/25/17 [History] Metformin HCl [Glucophage] 1,000 mg PO BID 06/25/17 [History] Montelukast [Singulair] 10 mg PO DAILY 06/25/17 [History] Multivit-Min/FA/Lycopen/Lutein [A Thru Z Select Men 50+ Tablet] 1 tab PO DAILY 06/25/17 [History] Sildenafil Citrate 100 mg PO DAILY PRN 06/25/17 [History] ALPRAZolam [Xanax 1 MG Tablet] 1 mg PO TID PRN 12/29/17 [History] Albuterol Neb [Proventil Neb] 2.5 mg IH Q6H PRN 12/29/17 [History] Duloxetine HCl [Cymbalta] 60 mg PO DAILY 12/29/17 [History] Metoprolol [Lopressor] 12.5 mg PO BID 12/29/17 [History] Cholecalciferol (D-3) [Vitamin D] 2,000 unit PO DAILY 04/05/18 [History] Quetiapine Fumarate [Seroquel] 100 mg PO HS 04/05/18 [History] Tiotropium [place] [Spiriva Respimat] 2 puff IH DAILY 04/05/18 [History] Doxycycline 100 mg PO BID 7 Days #14 capsule 04/08/18 [Rx] Insulin DETEMIR [Levemir] 30 unit SQ HS 30 Days #10 mls 04/08/18 [Rx] Insulin LISPRO [HumaLOG] 12 units SQ TIDWM 30 Days #10 vial 04/08/18 [Rx] OxyCODONE/APAP 10/325 [Percocet 10/325 MG] 1 each PO Q6HR PRN 5 Days #15 tablet 04/08/18 [Rx] Allergies/Adverse Reactions: Allergy/AdvReac Type Severity Reaction Status Date / Time No Known Allergies Allergy Verified 04/05/18 14:28 Certification: Further, I certify that my clinical findings support that this patient is homebound (i.e. absences from home require considerable and taxing effort and are for medical reasons or voodoo services or infrequently or short duration when for other reasons) because: Homebound Reason: Patient requires assistance of a person or device to safely leave home Attestation: My signature below is to certify that this patient is under my care and that I, or nurse practitioner, or a physician's molding line assistant working with me, has a [id number] encounter with this patient.
[2018-04-08] MEDS: ALPRAZolam 1 MG TABLET PO PRN (13:51)
[2018-04-08 15:25] VITALS: BP 150/81
[2018-04-08] MEDS ORDERED: Aminoglycoside Consult 1 EACH MC ONE (18:49)
[2018-04-08] MEDS ORDERED: Insulin DETEMIR 100 UNIT/ML X5UNITS SQ SCH (21:00)
[2018-04-08] MEDS ORDERED: Doxycycline 100 MG CAPSULE PO SCH (21:00)
--- NOTE | 2018-04-09 15:29 | Electrocardiograph Report ---
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
== END 2018-04-08 18:50 | disposition home or self-care (01) | DRG 624 ==
LOC: 3NENU 14:15 → EMEROOARM 14:15 → 3NENU 17:40
PROVIDERS: ADMIT Internal Medicine; ATTEND Internal Medicine

== ENCOUNTER 2018-11-21 18:26 | Inpatient (IN) ==
[2018-11-21] MEDS ORDERED: 0.9 % Sodium Chloride 1,000 ML IVC ONE (18:29)
[2018-11-21 19:21] LABS: Basophils # 0.1 K/mcL (0.0-0.2); Basophils % 0.8 %; Eosinophils # 0.3 K/mcL (0.0-0.6); Eosinophils % 2.2 %; Hemoglobin 12.3 g/dL (12.9-16.9); Immature Granulocytes % 0.7 % (0-4); Lymphocytes # 1.7 K/mcL (0.6-4.6); Lymphocytes % 14.3 %; Mean Corpuscular HGB Conc 31.5 g/dL (31.6-35.5); Mean Corpuscular Volume 88.6 fL (83.0-100.0); Mean Platelet Volume 12.1 fL (9.4-12.4); Monocytes # 0.5 K/mcL (0.0-1.3); Monocytes % 4.4 %; Platelet Count 219 K/mcL (140-400); Red Cell Distribution Width 13.7 % (11.5-14.5); Segmented Neutrophils % 77.6 %; White Blood Count 11.5 K/mcL (4.3-11.1)
[2018-11-21 19:41] LABS: Alanine Aminotransferase 4 Units/L (7-52); Albumin 3.2 g/dL (3.5-5.7); Alkaline Phosphatase 97 Units/L (34-104); Aspartate Amino Transferase 7 Units/L (13-39); BUN/Creatinine Ratio 15 (6-26); Bilirubin,Total 0.3 mg/dL (0.3-1.0); Blood Urea Nitrogen 17 mg/dL (8-23); Calcium 8.8 mg/dL (8.6-10.3); Carbon Dioxide 39 mEq/L (23-29); Chloride 94 mEq/L (98-107); Globulin 3.3 g/dL (2.4-3.5); Glucose 360 mg/dL (70-105); Osmolality,Calculated 306 (280-300); Potassium 3.7 mEq/L (3.5-5.1); Sodium 140 mEq/L (136-145); Total Protein 6.5 g/dL (6.4-8.9); Troponin I < 0.03 ng/mL (< 0.04); eGFR For African Americans > 60 (> 60); eGFR For Non-African Americans > 60 (> 60)
[2018-11-21] MEDS ORDERED: levoFLOXacin 750 MG/150 ML 750 MG/150 ML BAG IVPB ONE (20:27)
[2018-11-21] MEDS ORDERED: *HR* FentaNYL (PF) 100 MCG/2 ML VIAL IVP ONE (20:28)
[2018-11-21] MEDS ORDERED: Albuterol 2.5 MG/3 ML NEBULIZER IH PRN (22:07)
[2018-11-21] MEDS ORDERED: Baclofen 10 MG TABLET PO PRN (22:07)
[2018-11-21] MEDS ORDERED: Naloxone 0.4 MG/ML INJ IVP PRN (22:13)
[2018-11-21] MEDS ORDERED: Ondansetron 4 MG/2 ML VIAL IVP PRN (22:13)
[2018-11-21] MEDS ORDERED: Acetaminophen 325 MG TABLET PO PRN (22:13)
[2018-11-21] MEDS ORDERED: *HR* Dextrose 50 % in Water (Syg) 50 ML SYRINGE IVP PRN (22:24)
[2018-11-21] MEDS ORDERED: D5% in Water 1,000 ML IVC PRN (22:24)
[2018-11-21] MEDS ORDERED: Dextrose Gel 15 GM/37.5 ML TUBE PO PRN ×2 (22:24)
[2018-11-21] MEDS: *HR* OxyCODONE/APAP 7.5/325 TABLET PO PRN (22:40)
[2018-11-21] MEDS: 0.9 % Sodium Chloride 1,000 ML IVC SCH (22:41)
[2018-11-21] MEDS: Insulin LISPRO 300 UNITS/3 ML VIAL SQ SCH (23:00)
[2018-11-22] MEDS: Morphine Sulfate 2 MG/ML SYRINGE IVP PRN ×3 (01:58→20:41)
[2018-11-22 04:11] LABS: Bilirubin,Urine Negative (Negative); Blood,Urine Negative (Negative); Clarity,Urine Clear (Clear); Color,Urine Yellow (Yellow); Glucose,Urine (UA) 500 mg/dL (Normal); Ketones,Urine Negative (Negative); Leukocyte Esterase,Urine Negative (Negative); Nitrite,Urine Negative (Negative); PH,Urine 6.5 pH Units (5.0-8.0); Protein,Urine 30 mg/dL (Neg-Trace); Specific Gravity,Urine 1.021 (1.010-1.025); Urobilinogen,Urine Normal (Normal)
[2018-11-22 04:13] LABS: Bacteria,Urine None Seen per hpf (None-Few); Hyaline Casts,Urine None Seen per lpf (None-Few); RBC,Urine 0-3 per hpf (0-3); Squamous Epithelial Cell,Urine Moderate per lpf (None-Few)
[2018-11-22 05:03] LABS: Basophils # 0.1 K/mcL (0.0-0.2); Basophils % 0.6 %; Eosinophils # 0.3 K/mcL (0.0-0.6); Eosinophils % 3.3 %; Hemoglobin 11.8 g/dL (12.9-16.9); Immature Granulocytes % 0.8 % (0-4); Lymphocytes # 2.2 K/mcL (0.6-4.6); Lymphocytes % 22.7 %; Mean Corpuscular HGB Conc 31.1 g/dL (31.6-35.5); Mean Corpuscular Hemoglobin 27.8 pg (28.0-33.3); Mean Corpuscular Volume 89.4 fL (83.0-100.0); Mean Platelet Volume 11.9 fL (9.4-12.4); Monocytes # 0.5 K/mcL (0.0-1.3); Monocytes % 4.8 %; Neutrophils # 6.6 K/mcL (1.6-8.9); Platelet Count 223 K/mcL (140-400); Red Blood Count 4.25 M/mcL (4.19-5.50); Red Cell Distribution Width 13.9 % (11.5-14.5); Segmented Neutrophils % 67.8 %; White Blood Count 9.8 K/mcL (4.3-11.1)
[2018-11-22 05:12] LABS: INR 1.1; Prothrombin Time 12.5 Seconds (9.4-12.1)
[2018-11-22 05:14] LABS: Activated Partial Thrombo Time 31.2 Seconds (26.0-36.0)
[2018-11-22 05:26] LABS: Alanine Aminotransferase 4 Units/L (7-52); Albumin 3.1 g/dL (3.5-5.7); Alkaline Phosphatase 93 Units/L (34-104); Aspartate Amino Transferase 7 Units/L (13-39); BUN/Creatinine Ratio 18 (6-26); Bilirubin,Total 0.3 mg/dL (0.3-1.0); Blood Urea Nitrogen 18 mg/dL (8-23); Calcium 8.5 mg/dL (8.6-10.3); Carbon Dioxide 38 mEq/L (23-29); Chloride 98 mEq/L (98-107); Chol/HDL Ratio 3.6 (0-4.9); Cholesterol 119 mg/dL (< 200); Globulin 3.1 g/dL (2.4-3.5); Glucose 261 mg/dL (70-105); HDL Cholesterol 33 mg/dL (40-59); LDL Cholesterol,Calculated 60 mg/dL (0-99); Magnesium 1.8 mg/dL (1.6-2.6); Osmolality,Calculated 301 (280-300); Phosphorous 3.2 mg/dL (2.7-4.5); Potassium 3.5 mEq/L (3.5-5.1); Sodium 140 mEq/L (136-145); Total Protein 6.2 g/dL (6.4-8.9); Triglycerides 131 mg/dL (< 150); eGFR For African Americans > 60 (> 60); eGFR For Non-African Americans > 60 (> 60)
[2018-11-22] MEDS: *HR* OxyCODONE/APAP 7.5/325 TABLET PO PRN ×3 (05:46→18:52)
[2018-11-22] MEDS: 0.9 % Sodium Chloride 1,000 ML IVC SCH (07:00)
[2018-11-22] MEDS: Tiotropium 18 MCG inhalation IH SCH (07:21)
[2018-11-22] MEDS: Budesonide/Formoterol 160/4.5 1 PUFF INH IH SCH ×2 (07:21→20:13)
[2018-11-22] MEDS: Gabapentin 400 MG CAPSULE PO SCH ×4 (09:46→20:41)
[2018-11-22] MEDS: Aspirin Enteric Coated 81 MG Tablet PO SCH (09:46)
[2018-11-22] MEDS: Insulin LISPRO 300 UNITS/3 ML VIAL SQ SCH ×4 (09:46→20:18)
[2018-11-22] MEDS: Cholecalciferol (D-3) 1,000 UNIT (25MCG) TABLET PO SCH (09:46)
[2018-11-22] MEDS: Multivit/Ca/Min/Fe/FA 1 TAB TABLET PO SCH (09:46)
[2018-11-22] MEDS: QUEtiapine Fumarate 100 MG TABLET PO SCH (20:41)
[2018-11-23 00:08] LABS: ABG Base Excess 11 mEq/L (-2 to 3); ABG HCO3 41 mEq/L (21-27); ABG Oxygen Saturation 87 % (95-98); ABG PCO2 84 mmHg (35-45); ABG PH 7.29 pH Units (7.32-7.45); ABG PO2 62 mmHg (85-104); ABG TCO2 43 mEq/L (20-26)
[2018-11-23 00:20] LABS: Basophils # 0.1 K/mcL (0.0-0.2); Basophils % 0.9 %; Eosinophils # 0.5 K/mcL (0.0-0.6); Eosinophils % 4.6 %; Hematocrit 38.7 % (37.5-50.1); Lymphocytes % 19.9 %; Mean Corpuscular Volume 90.2 fL (83.0-100.0); Monocytes # 0.4 K/mcL (0.0-1.3); Monocytes % 4.5 %; Neutrophils # 6.8 K/mcL (1.6-8.9); Platelet Count 186 K/mcL (140-400); Red Blood Count 4.29 M/mcL (4.19-5.50); Segmented Neutrophils % 69.1 %; White Blood Count 9.9 K/mcL (4.3-11.1)
[2018-11-23] MEDS: Gabapentin 400 MG CAPSULE PO SCH ×4 (09:19→21:42)
[2018-11-23] MEDS: Multivit/Ca/Min/Fe/FA 1 TAB TABLET PO SCH (09:19)
[2018-11-23] MEDS: Aspirin Enteric Coated 81 MG Tablet PO SCH (09:19)
[2018-11-23] MEDS: Cholecalciferol (D-3) 1,000 UNIT (25MCG) TABLET PO SCH (09:19)
[2018-11-23] MEDS: Insulin LISPRO 300 UNITS/3 ML VIAL SQ SCH ×4 (09:21→21:51)
[2018-11-23] MEDS: *HR* Heparin 5,000 UNIT/ML VIAL SQ SCH ×2 (09:24→17:02)
[2018-11-23] MEDS: Budesonide/Formoterol 160/4.5 1 PUFF INH IH SCH ×2 (10:53→22:11)
[2018-11-23] MEDS: Tiotropium 18 MCG inhalation IH SCH (10:53)
[2018-11-23] MEDS: *HR* OxyCODONE Immed Rel 5 MG TABLET PO PRN ×2 (14:26→20:01)
[2018-11-23] MEDS: *HR* OxyCODONE/APAP 7.5/325 TABLET PO PRN (17:01)
[2018-11-23 17:28] LABS: Estimated Average Glucose 240 mg/dl
[2018-11-23] MEDS ORDERED: NON-FORMULARY MEDICATION 1 EACH EACH (Insulin Detemir [Levemir Flextouch] 30 UNIT) SQ SCH (21:00)
[2018-11-23] MEDS: QUEtiapine Fumarate 100 MG TABLET PO SCH (21:42)
[2018-11-23] MEDS: Insulin DETEMIR 100 UNIT/ML X5UNITS SQ SCH (21:42)
[2018-11-24] MEDS: *HR* OxyCODONE/APAP 7.5/325 TABLET PO PRN ×3 (06:04→22:00)
[2018-11-24] MEDS: *HR* Heparin 5,000 UNIT/ML VIAL SQ SCH ×2 (06:07→16:39)
[2018-11-24] MEDS: Budesonide/Formoterol 160/4.5 1 PUFF INH IH SCH ×2 (07:34→21:15)
[2018-11-24] MEDS: Tiotropium 18 MCG inhalation IH SCH (07:34)
[2018-11-24] MEDS ORDERED: QUEtiapine Fumarate 25 MG TABLET PO PRN (07:39)
[2018-11-24] MEDS ORDERED: *HR* OxyCODONE Immed Rel 5 MG TABLET PO PRN (07:39)
[2018-11-24] MEDS: Gabapentin 400 MG CAPSULE PO SCH ×4 (08:43→22:00)
[2018-11-24] MEDS: Cholecalciferol (D-3) 1,000 UNIT (25MCG) TABLET PO SCH (08:43)
[2018-11-24] MEDS: Multivit/Ca/Min/Fe/FA 1 TAB TABLET PO SCH (08:43)
[2018-11-24] MEDS: Aspirin Enteric Coated 81 MG Tablet PO SCH (08:43)
[2018-11-24] MEDS: Insulin LISPRO 300 UNITS/3 ML VIAL SQ SCH ×7 (08:43→21:56)
[2018-11-24] MEDS: *HR* OxyCODONE Immed Rel 5 MG TABLET PO PRN ×2 (08:48→18:01)
[2018-11-24] MEDS: QUEtiapine Fumarate 100 MG TABLET PO SCH (22:00)
[2018-11-24] MEDS: Insulin DETEMIR 100 UNIT/ML X5UNITS SQ SCH (22:02)
[2018-11-25] MEDS: *HR* OxyCODONE Immed Rel 5 MG TABLET PO PRN (03:47)
[2018-11-25] MEDS: *HR* Heparin 5,000 UNIT/ML VIAL SQ SCH (06:02)
[2018-11-25 07:25] VITALS: BP 116/67
[2018-11-25] MEDS: Budesonide/Formoterol 160/4.5 1 PUFF INH IH SCH (07:44)
[2018-11-25] MEDS: Tiotropium 18 MCG inhalation IH SCH (07:45)
[2018-11-25] MEDS: Cholecalciferol (D-3) 1,000 UNIT (25MCG) TABLET PO SCH (08:20)
[2018-11-25] MEDS: Gabapentin 400 MG CAPSULE PO SCH (08:20)
[2018-11-25] MEDS: Multivit/Ca/Min/Fe/FA 1 TAB TABLET PO SCH (08:20)
[2018-11-25] MEDS: Aspirin Enteric Coated 81 MG Tablet PO SCH (08:20)
[2018-11-25] MEDS: Insulin LISPRO 300 UNITS/3 ML VIAL SQ SCH ×2 (08:21)
[2018-11-25] MEDS: *HR* OxyCODONE/APAP 7.5/325 TABLET PO PRN (08:42)
== END 2018-11-25 11:00 | DRG 124 ==
LOC: 2ANU 18:26 → EMEROOARM 18:26 → 2ANU 21:30 → SUATTDRO 11-23 19:01
PROVIDERS: ADMIT Internal Medicine Nephrology; ATTEND Internal Medicine

== ENCOUNTER 2019-04-22 17:48 | Observation (INO) ==
[2019-04-22] MEDS ORDERED: 0.9 % Sodium Chloride 500 ML IVC ONE (18:55)
[2019-04-22 20:46] LABS: Bilirubin,Urine Negative (Negative); Blood,Urine Negative (Negative); Clarity,Urine Clear (Clear); Color,Urine Yellow (Yellow); Glucose,Urine (UA) >=1000 mg/dL (Normal); Ketones,Urine Negative (Negative); Leukocyte Esterase,Urine Negative (Negative); Nitrite,Urine Negative (Negative); PH,Urine 6.5 pH Units (5.0-8.0); Protein,Urine 30 mg/dL (Neg-Trace); Specific Gravity,Urine > 1.030 (1.010-1.025); Urobilinogen,Urine Normal (Normal)
[2019-04-22 20:47] LABS: Bacteria,Urine None Seen per hpf (None-Few); Hyaline Casts,Urine None Seen per lpf (None-Few); Squamous Epithelial Cell,Urine Many per lpf (None-Few)
[2019-04-22 20:58] LABS: VBG HCO3 35 mEq/L (21-27); VBG PCO2 74 mmHg (41-51); VBG PH 7.28 pH Units (7.32-7.42); VBG PO2 53 mmHg (25-50)
[2019-04-22 21:06] LABS: Hematocrit 41.9 % (37.5-50.1); Hemoglobin 13.1 g/dL (12.9-16.9); Mean Corpuscular HGB Conc 31.3 g/dL (31.6-35.5); Mean Corpuscular Hemoglobin 28.2 pg (28.0-33.3); Mean Corpuscular Volume 90.3 fL (83.0-100.0); Mean Platelet Volume 12.5 fL (9.4-12.4); Platelet Count 221 K/mcL (140-400); Red Blood Count 4.64 M/mcL (4.19-5.50); Red Cell Distribution Width 15.2 % (11.5-14.5); White Blood Count 15.1 K/mcL (4.3-11.1)
[2019-04-22 21:08] LABS: BUN/Creatinine Ratio 14 (6-26); Blood Urea Nitrogen 20 mg/dL (8-23); Carbon Dioxide 35 mEq/L (23-29); Chloride 94 mEq/L (98-107); Glucose 448 mg/dL (70-105); Osmolality,Calculated 304 (280-300); Potassium 4.4 mEq/L (3.5-5.1); Sodium 136 mEq/L (136-145); eGFR For African Americans > 60 (> 60); eGFR For Non-African Americans 50 (> 60)
[2019-04-22] MEDS ORDERED: 0.9 % Sodium Chloride 1,000 ML IVC ONE (22:16)
[2019-04-22] MEDS ORDERED: Insulin Regular, Human 100 UNIT/ML SQ STA (22:34)
[2019-04-22] MEDS ORDERED: Naloxone 0.4 MG/ML INJ IVP PRN (22:50)
[2019-04-22] MEDS ORDERED: Dextrose Gel 15 GM/37.5 ML TUBE PO PRN ×2 (22:51)
[2019-04-22] MEDS ORDERED: D5% in Water 1,000 ML IVC PRN (22:51)
[2019-04-22] MEDS ORDERED: *HR* Dextrose 50 % in Water (Syg) 50 ML SYRINGE IVP PRN (22:51)
[2019-04-23 00:56] LABS: Basophils # 0.1 K/mcL (0.0-0.2); Basophils % 0.9 %; Eosinophils # 0.4 K/mcL (0.0-0.6); Eosinophils % 2.9 %; Hematocrit 38.4 % (37.5-50.1); Hemoglobin 12.3 g/dL (12.9-16.9); Immature Granulocytes % 0.7 % (0-4); Lymphocytes # 1.8 K/mcL (0.6-4.6); Lymphocytes % 13.7 %; Mean Corpuscular Hemoglobin 28.1 pg (28.0-33.3); Mean Corpuscular Volume 87.9 fL (83.0-100.0); Mean Platelet Volume 12.2 fL (9.4-12.4); Monocytes # 0.5 K/mcL (0.0-1.3); Monocytes % 4.1 %; Neutrophils # 10.3 K/mcL (1.6-8.9); Platelet Count 221 K/mcL (140-400); Red Blood Count 4.37 M/mcL (4.19-5.50); Red Cell Distribution Width 15.3 % (11.5-14.5); Segmented Neutrophils % 77.7 %; White Blood Count 13.3 K/mcL (4.3-11.1)
[2019-04-23] MEDS ORDERED: Ipratropium/Albuterol Neb 3 ML IH PRN (01:09)
[2019-04-23 01:13] LABS: BUN/Creatinine Ratio 17 (6-26); Blood Urea Nitrogen 22 mg/dL (8-23); Calcium 8.3 mg/dL (8.6-10.3); Carbon Dioxide 35 mEq/L (23-29); Chloride 95 mEq/L (98-107); Glucose 349 mg/dL (70-105); Osmolality,Calculated 295 (280-300); Potassium 4.3 mEq/L (3.5-5.1); Sodium 134 mEq/L (136-145); eGFR For African Americans > 60 (> 60); eGFR For Non-African Americans 58 (> 60)
[2019-04-23] MEDS: *HR* OxyCODONE Immed Rel 5 MG TABLET PO PRN ×4 (02:28→23:28)
[2019-04-23] MEDS: Gabapentin 400 MG CAPSULE PO SCH ×5 (03:56→23:28)
[2019-04-23] MEDS: *HR* Heparin 5,000 UNIT/ML VIAL SQ SCH ×3 (06:52→23:29)
[2019-04-23] MEDS: Tiotropium 18 MCG inhalation IH SCH (07:35)
[2019-04-23] MEDS: Budesonide/Formoterol 160/4.5 1 PUFF INH IH SCH ×2 (07:35→20:10)
[2019-04-23] MEDS: Insulin LISPRO 300 UNITS/3 ML VIAL SQ SCH ×6 (08:03→16:12)
[2019-04-23] MEDS: Multivit/Ca/Min/Fe/FA 1 TAB TABLET PO SCH (08:04)
[2019-04-23] MEDS: Piperacillin/Tazobactam 3.375 GM in 0.9 % Sodium Chloride Mini Bag 100 ML IVPB SCH ×3 (08:04→23:29)
[2019-04-23] MEDS: Cholecalciferol (D-3) 1,000 UNIT (25MCG) TABLET PO SCH (08:04)
[2019-04-23] MEDS: Aspirin Enteric Coated 81 MG Tablet PO SCH (08:04)
[2019-04-23] MEDS ORDERED: Insulin DETEMIR 100 UNIT/ML X5UNITS SQ ONE (09:10)
[2019-04-23] MEDS: Baclofen 10 MG TABLET PO PRN ×2 (11:41→17:21)
[2019-04-23] MEDS: 0.9 % Sodium Chloride 1,000 ML IVC SCH (14:06)
[2019-04-23] MEDS: Acetaminophen 325 MG TABLET PO PRN (16:06)
[2019-04-23] MEDS: Nicotine 21 MG PATCH.TD24 TD SCH (17:22)
[2019-04-23] MEDS: Insulin DETEMIR 100 UNIT/ML X5UNITS SQ SCH (23:28)
[2019-04-24 03:45] LABS: Basophils # 0.1 K/mcL (0.0-0.2); Basophils % 0.9 %; Eosinophils # 0.4 K/mcL (0.0-0.6); Eosinophils % 3.9 %; Hematocrit 37.3 % (37.5-50.1); Hemoglobin 11.8 g/dL (12.9-16.9); Immature Granulocytes % 1.1 % (0-4); Lymphocytes # 2.2 K/mcL (0.6-4.6); Lymphocytes % 20.1 %; Mean Corpuscular HGB Conc 31.6 g/dL (31.6-35.5); Mean Corpuscular Hemoglobin 27.9 pg (28.0-33.3); Mean Corpuscular Volume 88.2 fL (83.0-100.0); Monocytes # 0.4 K/mcL (0.0-1.3); Monocytes % 3.9 %; Neutrophils # 7.8 K/mcL (1.6-8.9); Platelet Count 254 K/mcL (140-400); Red Blood Count 4.23 M/mcL (4.19-5.50); Red Cell Distribution Width 15.2 % (11.5-14.5); Segmented Neutrophils % 70.1 %; White Blood Count 11.1 K/mcL (4.3-11.1)
[2019-04-24 04:02] LABS: BUN/Creatinine Ratio 26 (6-26); Blood Urea Nitrogen 30 mg/dL (8-23); Calcium 8.4 mg/dL (8.6-10.3); Carbon Dioxide 33 mEq/L (23-29); Chloride 96 mEq/L (98-107); Glucose 399 mg/dL (70-105); Osmolality,Calculated 303 (280-300); Potassium 4.6 mEq/L (3.5-5.1); Sodium 135 mEq/L (136-145); eGFR For African Americans > 60 (> 60); eGFR For Non-African Americans > 60 (> 60)
[2019-04-24] MEDS: *HR* Heparin 5,000 UNIT/ML VIAL SQ SCH ×3 (05:46→21:02)
[2019-04-24] MEDS: *HR* OxyCODONE Immed Rel 5 MG TABLET PO PRN ×4 (05:46→21:12)
[2019-04-24] MEDS: Budesonide/Formoterol 160/4.5 1 PUFF INH IH SCH ×2 (07:51→20:15)
[2019-04-24] MEDS: Tiotropium 18 MCG inhalation IH SCH (07:52)
[2019-04-24] MEDS: Nicotine 21 MG PATCH.TD24 TD SCH (09:07)
[2019-04-24] MEDS: Multivit/Ca/Min/Fe/FA 1 TAB TABLET PO SCH (09:07)
[2019-04-24] MEDS: Piperacillin/Tazobactam 3.375 GM in 0.9 % Sodium Chloride Mini Bag 100 ML IVPB SCH ×3 (09:07→23:57)
[2019-04-24] MEDS: Acetaminophen 325 MG TABLET PO PRN (09:08)
[2019-04-24] MEDS: Gabapentin 400 MG CAPSULE PO SCH ×4 (09:08→21:01)
[2019-04-24] MEDS: Aspirin Enteric Coated 81 MG Tablet PO SCH (09:08)
[2019-04-24] MEDS: Cholecalciferol (D-3) 1,000 UNIT (25MCG) TABLET PO SCH (09:08)
[2019-04-24] MEDS: Insulin LISPRO 300 UNITS/3 ML VIAL SQ SCH ×6 (09:09→17:12)
[2019-04-24] MEDS: Insulin DETEMIR 100 UNIT/ML X5UNITS SQ SCH ×2 (10:00→21:01)
[2019-04-24] MEDS: 0.9 % Sodium Chloride 1,000 ML IVC SCH (17:10)
[2019-04-25] MEDS: *HR* OxyCODONE Immed Rel 5 MG TABLET PO PRN ×3 (02:17→12:17)
[2019-04-25 06:20] LABS: Basophils # 0.1 K/mcL (0.0-0.2); Basophils % 1.1 %; Eosinophils # 0.5 K/mcL (0.0-0.6); Eosinophils % 4.2 %; Hematocrit 37.4 % (37.5-50.1); Immature Granulocytes % 1.5 % (0-4); Lymphocytes # 2.6 K/mcL (0.6-4.6); Lymphocytes % 24.2 %; Mean Corpuscular HGB Conc 32.1 g/dL (31.6-35.5); Mean Corpuscular Hemoglobin 27.9 pg (28.0-33.3); Mean Platelet Volume 12.3 fL (9.4-12.4); Monocytes # 0.5 K/mcL (0.0-1.3); Monocytes % 4.8 %; Platelet Count 244 K/mcL (140-400); Segmented Neutrophils % 64.2 %; White Blood Count 10.9 K/mcL (4.3-11.1)
[2019-04-25] MEDS: *HR* Heparin 5,000 UNIT/ML VIAL SQ SCH (06:34)
[2019-04-25 06:44] LABS: BUN/Creatinine Ratio 26 (6-26); Blood Urea Nitrogen 27 mg/dL (8-23); Calcium 8.8 mg/dL (8.6-10.3); Carbon Dioxide 33 mEq/L (23-29); Chloride 101 mEq/L (98-107); Glucose 301 mg/dL (70-105); Osmolality,Calculated 300 (280-300); Potassium 4.6 mEq/L (3.5-5.1); Sodium 137 mEq/L (136-145); eGFR For African Americans > 60 (> 60); eGFR For Non-African Americans > 60 (> 60)
[2019-04-25] MEDS: Tiotropium 18 MCG inhalation IH SCH (07:25)
[2019-04-25] MEDS: Budesonide/Formoterol 160/4.5 1 PUFF INH IH SCH (07:26)
[2019-04-25] MEDS: Piperacillin/Tazobactam 3.375 GM in 0.9 % Sodium Chloride Mini Bag 100 ML IVPB SCH (08:32)
[2019-04-25] MEDS: Nicotine 21 MG PATCH.TD24 TD SCH (08:32)
[2019-04-25] MEDS: Gabapentin 400 MG CAPSULE PO SCH ×2 (08:34→12:17)
[2019-04-25] MEDS: Multivit/Ca/Min/Fe/FA 1 TAB TABLET PO SCH (08:34)
[2019-04-25] MEDS: Aspirin Enteric Coated 81 MG Tablet PO SCH (08:34)
[2019-04-25] MEDS: Acetaminophen 325 MG TABLET PO PRN (08:34)
[2019-04-25] MEDS: Cholecalciferol (D-3) 1,000 UNIT (25MCG) TABLET PO SCH (08:35)
[2019-04-25] MEDS: Insulin LISPRO 300 UNITS/3 ML VIAL SQ SCH ×4 (08:43→12:18)
[2019-04-25] MEDS: Insulin DETEMIR 100 UNIT/ML X5UNITS SQ SCH (08:43)
[2019-04-25] MEDS ORDERED: BuPROPion SR (12 HR) 150 MG TABLET PO SCH (09:00)
[2019-04-25 11:03] VITALS: BP 129/70
== END 2019-04-25 13:00 | disposition home health service (06) ==
LOC: EMEROOARM 17:48 → 3ANU 17:48 → SUATTDRO 23:01 → 3ANU 04-23 00:02
PROVIDERS: ADMIT Student in an Organized Health Care Education/Training Program; ATTEND Family Medicine

== ENCOUNTER 2019-08-23 23:36 | Inpatient (IN) ==
[2019-08-24] MEDS ORDERED: Isovue-370 500 ML BOTTLE IVP ONE (00:04)
[2019-08-24 00:37] LABS: Alanine Aminotransferase 6 Units/L (7-52); Albumin/Globulin Ratio 0.7 (1.1-2.2); Alkaline Phosphatase 87 Units/L (34-104); Aspartate Amino Transferase 8 Units/L (13-39); BUN/Creatinine Ratio 18 (6-26); Bilirubin,Indirect 0.3 mg/dL (0.0-1.0); Bilirubin,Total 0.3 mg/dL (0.3-1.0); Blood Urea Nitrogen 24 mg/dL (8-23); C-Reactive Protein 158 mg/L (Less than 10); Calcium 8.4 mg/dL (8.6-10.3); Carbon Dioxide 29 mEq/L (23-29); Chloride 92 mEq/L (98-107); Globulin 4.6 g/dL (2.4-3.5); Glucose 470 mg/dL (70-105); Osmolality,Calculated 291 (280-300); Sodium 128 mEq/L (136-145); Total Protein 7.6 g/dL (6.4-8.9); eGFR For African Americans > 60 (> 60); eGFR For Non-African Americans 54 (> 60)
[2019-08-24 00:42] LABS: Basophils # 0.1 K/mcL (0.0-0.2); Basophils % 0.6 %; Eosinophils # 0.3 K/mcL (0.0-0.6); Eosinophils % 2.5 %; Hematocrit 32.9 % (37.5-50.1); Hemoglobin 10.8 g/dL (12.9-16.9); Immature Granulocytes % 0.4 % (0-4); Lymphocytes # 1.6 K/mcL (0.6-4.6); Lymphocytes % 13.2 %; Mean Corpuscular HGB Conc 32.8 g/dL (31.6-35.5); Mean Corpuscular Hemoglobin 28.6 pg (28.0-33.3); Mean Corpuscular Volume 87.3 fL (83.0-100.0); Mean Platelet Volume 12.8 fL (9.4-12.4); Monocytes # 0.7 K/mcL (0.0-1.3); Monocytes % 5.7 %; Neutrophils # 9.2 K/mcL (1.6-8.9); Platelet Count 265 K/mcL (140-400); Red Blood Count 3.77 M/mcL (4.19-5.50); Red Cell Distribution Width 13.4 % (11.5-14.5); Segmented Neutrophils % 77.6 %; White Blood Count 11.8 K/mcL (4.3-11.1)
[2019-08-24] MEDS ORDERED: *HR* FentaNYL (PF) 100 MCG/2 ML VIAL IVP ONE (00:58)
[2019-08-24] MEDS ORDERED: 0.9 % Sodium Chloride 1,000 ML IVC STA (01:04)
[2019-08-24] MEDS ORDERED: Vancomycin 1,750 MG/517.5 ML IV.SOLN IVPB STA (02:00)
[2019-08-24] MEDS ORDERED: Piperacillin/Tazobactam 3.375 GM in 0.9 % Sodium Chloride Mini Bag 100 ML IVPB ONE (02:00)
[2019-08-24] MEDS ORDERED: Acetaminophen 325 MG TABLET PO PRN (03:40)
[2019-08-24] MEDS ORDERED: Mag Hydrox/Al Hydrox/Simeth 30 ML UDC PO PRN (03:40)
[2019-08-24] MEDS ORDERED: *HR* Promethazine 25 MG/ML VIAL IVP PRN (03:40)
[2019-08-24] MEDS ORDERED: Naloxone 0.4 MG/ML INJ IVP PRN (03:40)
[2019-08-24] MEDS ORDERED: 0.9 % Sodium Chloride 1,000 ML IVC SCH (03:45)
[2019-08-24 04:39] LABS: Magnesium 1.7 mg/dL (1.6-2.6)
[2019-08-24 04:40] LABS: Troponin I < 0.03 ng/mL (< 0.04)
[2019-08-24] MEDS ORDERED: Insulin DETEMIR 100 UNIT/ML X5UNITS SQ ONE (05:00)
[2019-08-24] MEDS: *HR* HYDROcodone/Acet 5/325 mg TABLET PO PRN (05:57)
[2019-08-24] MEDS: *HR* Heparin 5,000 UNIT/ML VIAL SQ SCH ×2 (06:02→16:03)
[2019-08-24] MEDS: Insulin LISPRO 300 UNITS/3 ML VIAL SQ SCH ×5 (06:03→23:54)
[2019-08-24] MEDS ORDERED: Albuterol 2.5 MG/3 ML NEBULIZER IH PRN (06:07)
[2019-08-24 07:43] LABS: Estimated Average Glucose 240 mg/dl
[2019-08-24] MEDS: Nicotine 14 MG PATCH.TD24 TD SCH (08:01)
[2019-08-24] MEDS: Budesonide/Formoterol 160/4.5 1 PUFF INH IH SCH ×2 (08:06→20:01)
[2019-08-24] MEDS: Piperacillin/Tazobactam 3.375 GM in 0.9 % Sodium Chloride Mini Bag 100 ML IVPB SCH ×2 (08:51→17:11)
[2019-08-24] MEDS: *HR* OxyCODONE Immed Rel 5 MG TABLET PO PRN ×3 (09:01→22:09)
[2019-08-24] MEDS ORDERED: Baclofen 10 MG TABLET PO PRN (12:00)
[2019-08-24] MEDS: Vancomycin 1,500 MG/265 ML IV.SOLN IVPB SCH (16:05)
[2019-08-24] MEDS: 0.9 % Sodium Chloride 1,000 ML IVC SCH ×2 (20:21→22:24)
[2019-08-24] MEDS: Insulin DETEMIR 100 UNIT/ML X5UNITS SQ SCH (20:22)
[2019-08-24] MEDS: QUEtiapine Fumarate 100 MG TABLET PO SCH (20:22)
[2019-08-24] MEDS: Gabapentin 400 MG CAPSULE PO SCH (20:22)
[2019-08-25] MEDS: Insulin LISPRO 300 UNITS/3 ML VIAL SQ SCH ×5 (00:25→16:23)
[2019-08-25] MEDS: Vancomycin 1,500 MG/265 ML IV.SOLN IVPB SCH (00:25)
[2019-08-25] MEDS: *HR* HYDROcodone/Acet 5/325 mg TABLET PO PRN ×2 (01:34→21:19)
[2019-08-25] MEDS: Piperacillin/Tazobactam 3.375 GM in 0.9 % Sodium Chloride Mini Bag 100 ML IVPB SCH ×3 (03:27→17:55)
[2019-08-25] MEDS: *HR* OxyCODONE Immed Rel 5 MG TABLET PO PRN ×3 (04:20→18:04)
[2019-08-25] MEDS: *HR* Heparin 5,000 UNIT/ML VIAL SQ SCH ×2 (05:44→17:55)
[2019-08-25] MEDS ORDERED: QUEtiapine Fumarate 25 MG TABLET PO PRN (06:07)
[2019-08-25] MEDS: Budesonide/Formoterol 160/4.5 1 PUFF INH IH SCH ×2 (08:06→20:45)
[2019-08-25 09:19] LABS: Basophils # 0.1 K/mcL (0.0-0.2); Basophils % 0.9 %; Eosinophils # 0.7 K/mcL (0.0-0.6); Eosinophils % 6.5 %; Hematocrit 37.3 % (37.5-50.1); Hemoglobin 11.5 g/dL (12.9-16.9); Immature Granulocytes % 0.5 % (0-4); Lymphocytes % 27.5 %; Mean Corpuscular HGB Conc 30.8 g/dL (31.6-35.5); Mean Corpuscular Hemoglobin 27.9 pg (28.0-33.3); Mean Corpuscular Volume 90.5 fL (83.0-100.0); Mean Platelet Volume 12.5 fL (9.4-12.4); Monocytes # 0.7 K/mcL (0.0-1.3); Monocytes % 5.9 %; Neutrophils # 6.4 K/mcL (1.6-8.9); Platelet Count 295 K/mcL (140-400); Red Blood Count 4.12 M/mcL (4.19-5.50); Red Cell Distribution Width 13.6 % (11.5-14.5); Segmented Neutrophils % 58.7 %; White Blood Count 10.9 K/mcL (4.3-11.1)
[2019-08-25 09:38] LABS: % Iron Saturation 16 % (20-55); Iron 38 mcg/dL (65-175); Transferrin 172 mg/dL (203-362)
[2019-08-25 09:56] LABS: Ferritin 152 ng/mL (20-250)
[2019-08-25] MEDS: Nicotine 14 MG PATCH.TD24 TD SCH (10:20)
[2019-08-25 10:21] LABS: BUN/Creatinine Ratio 16 (6-26); Blood Urea Nitrogen 18 mg/dL (8-23); C-Reactive Protein 101 mg/L (Less than 10); Calcium 8.6 mg/dL (8.6-10.3); Carbon Dioxide 32 mEq/L (23-29); Chloride 100 mEq/L (98-107); Glucose 137 mg/dL (70-105); Osmolality,Calculated 284 (280-300); Potassium 3.8 mEq/L (3.5-5.1); Sodium 135 mEq/L (136-145); eGFR For African Americans > 60 (> 60); eGFR For Non-African Americans > 60 (> 60)
[2019-08-25] MEDS: Aspirin Enteric Coated 81 MG Tablet PO SCH (10:21)
[2019-08-25] MEDS: Gabapentin 400 MG CAPSULE PO SCH ×4 (10:21→20:28)
[2019-08-25] MEDS: 0.9 % Sodium Chloride 1,000 ML IVC SCH (12:11)
[2019-08-25] MEDS: Vancomycin 1,250 MG/262.5 ML IV.SOLN IVPB SCH (16:10)
[2019-08-25] MEDS: QUEtiapine Fumarate 100 MG TABLET PO SCH (20:28)
[2019-08-25] MEDS ORDERED: Insulin LISPRO 300 UNITS/3 ML VIAL SQ SCH (21:00)
[2019-08-25] MEDS: Insulin DETEMIR 100 UNIT/ML X5UNITS SQ SCH (21:20)
[2019-08-26] MEDS: Insulin LISPRO 300 UNITS/3 ML VIAL SQ SCH ×7 (00:07→20:23)
[2019-08-26] MEDS: 0.9 % Sodium Chloride 1,000 ML IVC SCH ×2 (02:03→15:43)
[2019-08-26] MEDS: Piperacillin/Tazobactam 3.375 GM in 0.9 % Sodium Chloride Mini Bag 100 ML IVPB SCH ×2 (02:04→08:37)
[2019-08-26 02:17] LABS: Basophils # 0.1 K/mcL (0.0-0.2); Basophils % 0.8 %; Eosinophils # 0.7 K/mcL (0.0-0.6); Eosinophils % 7.7 %; Hematocrit 32.4 % (37.5-50.1); Hemoglobin 10.1 g/dL (12.9-16.9); Immature Granulocytes % 0.4 % (0-4); Lymphocytes # 1.9 K/mcL (0.6-4.6); Lymphocytes % 19.6 %; Mean Corpuscular HGB Conc 31.2 g/dL (31.6-35.5); Mean Corpuscular Hemoglobin 27.9 pg (28.0-33.3); Mean Corpuscular Volume 89.5 fL (83.0-100.0); Monocytes # 0.5 K/mcL (0.0-1.3); Monocytes % 4.9 %; Neutrophils # 6.3 K/mcL (1.6-8.9); Platelet Count 304 K/mcL (140-400); Red Blood Count 3.62 M/mcL (4.19-5.50); Red Cell Distribution Width 13.3 % (11.5-14.5); Segmented Neutrophils % 66.6 %; White Blood Count 9.4 K/mcL (4.3-11.1)
[2019-08-26 02:37] LABS: BUN/Creatinine Ratio 23 (6-26); Blood Urea Nitrogen 30 mg/dL (8-23); Carbon Dioxide 30 mEq/L (23-29); Chloride 101 mEq/L (98-107); Glucose 268 mg/dL (70-105); Magnesium 1.8 mg/dL (1.6-2.6); Osmolality,Calculated 298 (280-300); Phosphorous 3.2 mg/dL (2.7-4.5); Potassium 4.6 mEq/L (3.5-5.1); Sodium 136 mEq/L (136-145); eGFR For African Americans > 60 (> 60); eGFR For Non-African Americans 57 (> 60)
[2019-08-26] MEDS: Vancomycin 1,250 MG/262.5 ML IV.SOLN IVPB SCH ×2 (06:12→17:25)
[2019-08-26] MEDS: *HR* Heparin 5,000 UNIT/ML VIAL SQ SCH ×2 (06:12→17:26)
[2019-08-26] MEDS: Budesonide/Formoterol 160/4.5 1 PUFF INH IH SCH ×2 (07:31→19:56)
[2019-08-26] MEDS: Aspirin Enteric Coated 81 MG Tablet PO SCH (08:35)
[2019-08-26] MEDS: Nicotine 14 MG PATCH.TD24 TD SCH (08:35)
[2019-08-26] MEDS: *HR* OxyCODONE Immed Rel 5 MG TABLET PO PRN ×3 (08:35→22:11)
[2019-08-26] MEDS: Gabapentin 400 MG CAPSULE PO SCH ×4 (08:35→20:25)
[2019-08-26] MEDS: *HR* HYDROcodone/Acet 5/325 mg TABLET PO PRN ×2 (10:52→20:24)
[2019-08-26] MEDS ORDERED: Insulin DETEMIR 100 UNIT/ML X5UNITS SQ SCH (11:45)
[2019-08-26] MEDS ORDERED: *HR* HYDROcodone/Acet 5/325 mg TABLET PO PRN (12:16)
[2019-08-26] MEDS ORDERED: Lidocaine 1% 20 ML MDV ONE (12:20)
[2019-08-26] MEDS ORDERED: *HR* Midazolam HCl 2 MG/2 ML VIAL ONE (13:02)
[2019-08-26] MEDS ORDERED: Lidocaine -MPF 2% 2 ML VIAL ONE (13:12)
[2019-08-26] MEDS ORDERED: *HR* FentaNYL (PF) 100 MCG/2 ML VIAL ONE (13:12)
[2019-08-26] MEDS ORDERED: *HR* Propofol 200 MG/20 ML VIAL IVP ONE ×2 (13:12→13:13)
[2019-08-26] MEDS ORDERED: Dexamethasone 4 MG/ML VIAL ONE (13:12)
[2019-08-26] MEDS ORDERED: Ondansetron 4 MG/2 ML VIAL ONE (13:12)
[2019-08-26] MEDS ORDERED: *HR* PHENYLEPHRINE 1,000 MCG/10 ML SYRINGE IVP ONE (13:34)
[2019-08-26] MEDS ORDERED: Vancomycin 1,000 MG, Sodium Chloride IRRigation 1,000 ML IR ONE ×2 (14:05→14:56)
[2019-08-26] MEDS ORDERED: Naloxone 0.4 MG/ML INJ IVP PRN (14:56)
[2019-08-26] MEDS ORDERED: Baclofen 10 MG TABLET PO PRN (14:56)
[2019-08-26] MEDS ORDERED: Mag Hydrox/Al Hydrox/Simeth 30 ML UDC PO PRN (14:56)
[2019-08-26] MEDS ORDERED: Acetaminophen 325 MG TABLET PO PRN (14:56)
[2019-08-26] MEDS ORDERED: QUEtiapine Fumarate 25 MG TABLET PO PRN (14:56)
[2019-08-26] MEDS ORDERED: *HR* Promethazine 25 MG/ML VIAL IVP PRN (14:56)
[2019-08-26] MEDS ORDERED: Albuterol 2.5 MG/3 ML NEBULIZER IH PRN (14:56)
[2019-08-26] MEDS: Cefepime HCl 2,000 MG in 0.9 % Sodium Chloride Mini Bag 100 ML IVPB SCH ×2 (15:42→23:40)
[2019-08-26] MEDS ORDERED: Cefepime HCl 2,000 MG in 0.9 % Sodium Chloride Mini Bag 100 ML IVPB SCH (16:00)
[2019-08-26] MEDS ORDERED: Insulin LISPRO 300 UNITS/3 ML VIAL SQ SCH (18:00)
[2019-08-26] MEDS: Insulin DETEMIR 100 UNIT/ML X5UNITS SQ SCH (20:24)
[2019-08-26] MEDS: QUEtiapine Fumarate 100 MG TABLET PO SCH (20:25)
[2019-08-27] MEDS: *HR* HYDROcodone/Acet 5/325 mg TABLET PO PRN ×3 (01:38→20:45)
[2019-08-27] MEDS ORDERED: *HR* HYDROmorphone 2 MG TABLET PO ONE (03:36)
[2019-08-27 03:38] LABS: Hematocrit 30.7 % (37.5-50.1); Hemoglobin 9.4 g/dL (12.9-16.9); Mean Corpuscular HGB Conc 30.6 g/dL (31.6-35.5); Mean Corpuscular Hemoglobin 27.8 pg (28.0-33.3); Mean Corpuscular Volume 90.8 fL (83.0-100.0); Mean Platelet Volume 12.2 fL (9.4-12.4); Platelet Count 293 K/mcL (140-400); Red Blood Count 3.38 M/mcL (4.19-5.50); Red Cell Distribution Width 13.7 % (11.5-14.5); White Blood Count 10.3 K/mcL (4.3-11.1)
[2019-08-27 03:54] LABS: BUN/Creatinine Ratio 24 (6-26); Blood Urea Nitrogen 29 mg/dL (8-23); Carbon Dioxide 29 mEq/L (23-29); Chloride 104 mEq/L (98-107); Glucose 185 mg/dL (70-105); Osmolality,Calculated 293 (280-300); Potassium 5.1 mEq/L (3.5-5.1); Sodium 136 mEq/L (136-145); eGFR For African Americans > 60 (> 60); eGFR For Non-African Americans 60 (> 60)
[2019-08-27] MEDS: Vancomycin 1,250 MG/262.5 ML IV.SOLN IVPB SCH (04:47)
[2019-08-27] MEDS: 0.9 % Sodium Chloride 1,000 ML IVC SCH ×3 (04:54→20:46)
[2019-08-27] MEDS: *HR* Heparin 5,000 UNIT/ML VIAL SQ SCH ×2 (04:55→17:22)
[2019-08-27] MEDS: Budesonide/Formoterol 160/4.5 1 PUFF INH IH SCH ×2 (07:52→20:17)
[2019-08-27] MEDS: Cefepime HCl 2,000 MG in 0.9 % Sodium Chloride Mini Bag 100 ML IVPB SCH ×2 (07:55→15:27)
[2019-08-27] MEDS: Insulin LISPRO 300 UNITS/3 ML VIAL SQ SCH ×6 (07:56→20:45)
[2019-08-27] MEDS: Insulin DETEMIR 100 UNIT/ML X5UNITS SQ SCH ×2 (07:56→20:46)
[2019-08-27] MEDS: *HR* OxyCODONE Immed Rel 5 MG TABLET PO PRN ×2 (07:57→15:28)
[2019-08-27] MEDS: Aspirin Enteric Coated 81 MG Tablet PO SCH (07:57)
[2019-08-27] MEDS: Nicotine 14 MG PATCH.TD24 TD SCH (07:58)
[2019-08-27] MEDS: Gabapentin 400 MG CAPSULE PO SCH ×4 (07:58→20:44)
[2019-08-27] MEDS ORDERED: Aminoglycoside Consult 1 EACH MC ONE (09:10)
[2019-08-27] MEDS: metroNIDAZOLE 500 MG TABLET PO SCH ×2 (15:28→20:45)
[2019-08-27] MEDS: QUEtiapine Fumarate 100 MG TABLET PO SCH (20:45)
[2019-08-28] MEDS: *HR* OxyCODONE Immed Rel 5 MG TABLET PO PRN ×3 (00:02→14:23)
[2019-08-28] MEDS: Cefepime HCl 2,000 MG in 0.9 % Sodium Chloride Mini Bag 100 ML IVPB SCH ×4 (00:03→23:11)
[2019-08-28 05:06] LABS: Hematocrit 31.4 % (37.5-50.1); Hemoglobin 9.7 g/dL (12.9-16.9); Mean Corpuscular HGB Conc 30.9 g/dL (31.6-35.5); Mean Corpuscular Hemoglobin 28.1 pg (28.0-33.3); Mean Platelet Volume 11.6 fL (9.4-12.4); Platelet Count 298 K/mcL (140-400); Red Blood Count 3.45 M/mcL (4.19-5.50); Red Cell Distribution Width 13.7 % (11.5-14.5); White Blood Count 10.1 K/mcL (4.3-11.1)
[2019-08-28 05:15] LABS: BUN/Creatinine Ratio 27 (6-26); Blood Urea Nitrogen 27 mg/dL (8-23); Calcium 8.5 mg/dL (8.6-10.3); Carbon Dioxide 31 mEq/L (23-29); Chloride 103 mEq/L (98-107); Glucose 212 mg/dL (70-105); Osmolality,Calculated 297 (280-300); Potassium 4.4 mEq/L (3.5-5.1); Sodium 138 mEq/L (136-145); eGFR For African Americans > 60 (> 60); eGFR For Non-African Americans > 60 (> 60)
[2019-08-28] MEDS: *HR* Heparin 5,000 UNIT/ML VIAL SQ SCH ×2 (06:10→17:13)
[2019-08-28] MEDS: Insulin LISPRO 300 UNITS/3 ML VIAL SQ SCH ×7 (08:05→20:04)
[2019-08-28] MEDS: Aspirin Enteric Coated 81 MG Tablet PO SCH (08:06)
[2019-08-28] MEDS: Gabapentin 400 MG CAPSULE PO SCH ×4 (08:07→20:04)
[2019-08-28] MEDS: Nicotine 14 MG PATCH.TD24 TD SCH (08:08)
[2019-08-28] MEDS: Insulin DETEMIR 100 UNIT/ML X5UNITS SQ SCH ×2 (08:08→20:07)
[2019-08-28] MEDS: Budesonide/Formoterol 160/4.5 1 PUFF INH IH SCH ×2 (08:36→20:36)
[2019-08-28] MEDS ORDERED: Insulin DETEMIR 100 UNIT/ML X5UNITS SQ ONE (10:55)
[2019-08-28] MEDS: *HR* HYDROcodone/Acet 5/325 mg TABLET PO PRN ×2 (10:58→17:14)
[2019-08-28] MEDS: Ampicillin/Sulbactam 3,000 MG in 0.9 % Sodium Chloride Mini Bag 100 ML IVPB SCH ×3 (12:09→23:12)
[2019-08-28] MEDS: 0.9 % Sodium Chloride 1,000 ML IVC SCH (13:09)
[2019-08-28] MEDS ORDERED: *HR* HYDROmorphone 2 MG TABLET PO ONE (19:46)
[2019-08-28] MEDS: QUEtiapine Fumarate 100 MG TABLET PO SCH (20:04)
[2019-08-29] MEDS: *HR* OxyCODONE Immed Rel 5 MG TABLET PO PRN ×3 (01:47→20:11)
[2019-08-29] MEDS: *HR* HYDROcodone/Acet 5/325 mg TABLET PO PRN ×2 (04:29→17:20)
[2019-08-29] MEDS: Ampicillin/Sulbactam 3,000 MG in 0.9 % Sodium Chloride Mini Bag 100 ML IVPB SCH ×4 (06:03→23:53)
[2019-08-29] MEDS: 0.9 % Sodium Chloride 1,000 ML IVC SCH ×2 (06:03→23:52)
[2019-08-29] MEDS: *HR* Heparin 5,000 UNIT/ML VIAL SQ SCH ×2 (06:08→17:20)
[2019-08-29] MEDS ORDERED: *HR* HYDROmorphone 2 MG TABLET PO ONE (06:50)
[2019-08-29] MEDS: Budesonide/Formoterol 160/4.5 1 PUFF INH IH SCH ×2 (07:54→19:49)
[2019-08-29] MEDS: Aspirin Enteric Coated 81 MG Tablet PO SCH (07:56)
[2019-08-29] MEDS: Gabapentin 400 MG CAPSULE PO SCH ×4 (07:57→20:11)
[2019-08-29] MEDS: Insulin LISPRO 300 UNITS/3 ML VIAL SQ SCH ×6 (07:58→17:20)
[2019-08-29] MEDS: Cefepime HCl 2,000 MG in 0.9 % Sodium Chloride Mini Bag 100 ML IVPB SCH ×3 (07:58→23:55)
[2019-08-29] MEDS: Insulin DETEMIR 100 UNIT/ML X5UNITS SQ SCH ×2 (07:59→21:32)
[2019-08-29] MEDS: Nicotine 14 MG PATCH.TD24 TD SCH (08:00)
[2019-08-29] MEDS: QUEtiapine Fumarate 100 MG TABLET PO SCH (20:11)
[2019-08-30] MEDS: Insulin LISPRO 300 UNITS/3 ML VIAL SQ SCH ×8 (00:01→20:55)
[2019-08-30] MEDS: *HR* OxyCODONE Immed Rel 5 MG TABLET PO PRN ×3 (02:11→19:43)
[2019-08-30 04:02] LABS: Hematocrit 29.6 % (37.5-50.1); Hemoglobin 9.1 g/dL (12.9-16.9); Mean Corpuscular HGB Conc 30.7 g/dL (31.6-35.5); Mean Corpuscular Volume 91.1 fL (83.0-100.0); Mean Platelet Volume 12.1 fL (9.4-12.4); Platelet Count 287 K/mcL (140-400); Red Blood Count 3.25 M/mcL (4.19-5.50); Red Cell Distribution Width 13.9 % (11.5-14.5); White Blood Count 9.9 K/mcL (4.3-11.1)
[2019-08-30 04:21] LABS: BUN/Creatinine Ratio 41 (6-26); Blood Urea Nitrogen 37 mg/dL (8-23); Calcium 8.4 mg/dL (8.6-10.3); Carbon Dioxide 33 mEq/L (23-29); Chloride 104 mEq/L (98-107); Glucose 109 mg/dL (70-105); Osmolality,Calculated 299 (280-300); Potassium 4.3 mEq/L (3.5-5.1); Sodium 140 mEq/L (136-145); eGFR For African Americans > 60 (> 60); eGFR For Non-African Americans > 60 (> 60)
[2019-08-30] MEDS: *HR* HYDROcodone/Acet 5/325 mg TABLET PO PRN ×3 (05:36→17:58)
[2019-08-30] MEDS: *HR* Heparin 5,000 UNIT/ML VIAL SQ SCH ×2 (05:36→17:42)
[2019-08-30] MEDS: Ampicillin/Sulbactam 3,000 MG in 0.9 % Sodium Chloride Mini Bag 100 ML IVPB SCH ×5 (05:43→23:41)
[2019-08-30] MEDS: Budesonide/Formoterol 160/4.5 1 PUFF INH IH SCH ×2 (07:49→19:44)
[2019-08-30] MEDS: Insulin DETEMIR 100 UNIT/ML X5UNITS SQ SCH ×2 (08:44→20:54)
[2019-08-30] MEDS: Cefepime HCl 2,000 MG in 0.9 % Sodium Chloride Mini Bag 100 ML IVPB SCH (08:45)
[2019-08-30] MEDS: Aspirin Enteric Coated 81 MG Tablet PO SCH (08:46)
[2019-08-30] MEDS: Gabapentin 400 MG CAPSULE PO SCH ×4 (08:47→20:54)
[2019-08-30] MEDS: Nicotine 14 MG PATCH.TD24 TD SCH (08:48)
[2019-08-30] MEDS: 0.9 % Sodium Chloride 1,000 ML IVC SCH ×2 (10:52→12:27)
[2019-08-30] MEDS: cefTRIAXone 2,000 MG in Water for inj. (sterile) 20 ML IVP SCH (17:42)
[2019-08-30] MEDS: QUEtiapine Fumarate 100 MG TABLET PO SCH (20:54)
[2019-08-31] MEDS: *HR* OxyCODONE Immed Rel 5 MG TABLET PO PRN ×3 (02:11→17:43)
[2019-08-31] MEDS: 0.9 % Sodium Chloride 1,000 ML IVC SCH ×2 (02:43→14:50)
[2019-08-31] MEDS: *HR* HYDROcodone/Acet 5/325 mg TABLET PO PRN ×4 (04:47→20:24)
[2019-08-31] MEDS: Ampicillin/Sulbactam 3,000 MG in 0.9 % Sodium Chloride Mini Bag 100 ML IVPB SCH (05:41)
[2019-08-31] MEDS: *HR* Heparin 5,000 UNIT/ML VIAL SQ SCH ×2 (05:42→17:43)
[2019-08-31] MEDS: Gabapentin 400 MG CAPSULE PO SCH ×4 (08:32→20:19)
[2019-08-31] MEDS: Aspirin Enteric Coated 81 MG Tablet PO SCH (08:33)
[2019-08-31] MEDS: Insulin DETEMIR 100 UNIT/ML X5UNITS SQ SCH ×2 (08:35→20:19)
[2019-08-31] MEDS: Insulin LISPRO 300 UNITS/3 ML VIAL SQ SCH ×7 (08:35→20:12)
[2019-08-31] MEDS: Budesonide/Formoterol 160/4.5 1 PUFF INH IH SCH ×2 (10:23→19:45)
[2019-08-31] MEDS: Nicotine 14 MG PATCH.TD24 TD SCH (10:37)
[2019-08-31] MEDS ORDERED: Ampicillin/Sulbactam 3,000 MG in 0.9 % Sodium Chloride Mini Bag 100 ML IVPB SCH (12:00)
[2019-08-31] MEDS ORDERED: Vancomycin 2,000 MG/520 ML IV.SOLN IVPB ONE (13:19)
[2019-08-31] MEDS ORDERED: Vancomycin 1 EACH in 0.9 % Sodium Chloride 250 ML IVPB SCH (14:00)
[2019-08-31 14:01] LABS: BUN/Creatinine Ratio 37 (6-26); Blood Urea Nitrogen 38 mg/dL (8-23); eGFR For African Americans > 60 (> 60); eGFR For Non-African Americans > 60 (> 60)
[2019-08-31] MEDS: metroNIDAZOLE 500 MG TABLET PO SCH ×2 (14:50→20:19)
[2019-08-31] MEDS: cefTRIAXone 2,000 MG in Water for inj. (sterile) 20 ML IVP SCH (17:42)
[2019-08-31] MEDS: QUEtiapine Fumarate 100 MG TABLET PO SCH (20:19)
[2019-09-01] MEDS: *HR* OxyCODONE Immed Rel 5 MG TABLET PO PRN ×2 (01:43→09:34)
[2019-09-01] MEDS: 0.9 % Sodium Chloride 1,000 ML IVC SCH (04:45)
[2019-09-01 05:01] LABS: Hematocrit 30.2 % (37.5-50.1); Hemoglobin 9.3 g/dL (12.9-16.9); Mean Corpuscular HGB Conc 30.8 g/dL (31.6-35.5); Mean Corpuscular Hemoglobin 28.4 pg (28.0-33.3); Mean Corpuscular Volume 92.1 fL (83.0-100.0); Mean Platelet Volume 11.4 fL (9.4-12.4); Platelet Count 252 K/mcL (140-400); Red Blood Count 3.28 M/mcL (4.19-5.50); White Blood Count 8.6 K/mcL (4.3-11.1)
[2019-09-01 05:20] LABS: BUN/Creatinine Ratio 43 (6-26); Blood Urea Nitrogen 38 mg/dL (8-23); Calcium 8.9 mg/dL (8.6-10.3); Carbon Dioxide 33 mEq/L (23-29); Chloride 104 mEq/L (98-107); Glucose 151 mg/dL (70-105); Osmolality,Calculated 300 (280-300); Potassium 4.5 mEq/L (3.5-5.1); Sodium 139 mEq/L (136-145); eGFR For African Americans > 60 (> 60); eGFR For Non-African Americans > 60 (> 60)
[2019-09-01] MEDS: *HR* Heparin 5,000 UNIT/ML VIAL SQ SCH ×2 (05:24→16:27)
[2019-09-01] MEDS: *HR* HYDROcodone/Acet 5/325 mg TABLET PO PRN ×3 (06:45→19:03)
[2019-09-01] MEDS: Budesonide/Formoterol 160/4.5 1 PUFF INH IH SCH (07:58)
[2019-09-01] MEDS: Insulin LISPRO 300 UNITS/3 ML VIAL SQ SCH ×6 (09:04→16:28)
[2019-09-01] MEDS: Aspirin Enteric Coated 81 MG Tablet PO SCH (09:06)
[2019-09-01] MEDS: metroNIDAZOLE 500 MG TABLET PO SCH ×2 (09:06→15:16)
[2019-09-01] MEDS: Gabapentin 400 MG CAPSULE PO SCH ×3 (09:06→16:27)
[2019-09-01] MEDS: Insulin DETEMIR 100 UNIT/ML X5UNITS SQ SCH (09:07)
[2019-09-01] MEDS: Nicotine 14 MG PATCH.TD24 TD SCH (09:07)
[2019-09-01 10:45] VITALS: BP 148/77
[2019-09-01] MEDS ORDERED: Ketorolac 30 MG/ML VIAL IVP ONE (11:19)
[2019-09-01] MEDS ORDERED: *HR* OxyCODONE Immed Rel 5 MG TABLET PO PRN (11:23)
[2019-09-01] MEDS: cefTRIAXone 2,000 MG in Water for inj. (sterile) 20 ML IVP SCH (16:27)
[2019-09-01] MEDS ORDERED: Aminoglycoside Consult 1 EACH MC ONE (19:04)
== END 2019-09-01 19:05 | DRG 854 ==
LOC: EMEROOARM 23:36 → 3BNU 23:36 → OBSVTOIN 08-24 04:26 → SUATTDRO 08-24 04:26 → 3BNU 08-24 04:50 → 3ANU 08-25 16:55
PROVIDERS: ADMIT Internal Medicine; ATTEND Internal Medicine

== ENCOUNTER 2020-02-26 20:57 | Inpatient (IN) ==
[2020-02-26] MEDS ORDERED: Ipratropium/Albuterol Neb 3 ML IH ONE (21:09)
[2020-02-26 21:31] LABS: Basophils # 0.2 K/mcL (0.0-0.2); Basophils % 0.9 %; Eosinophils # 0.3 K/mcL (0.0-0.6); Eosinophils % 1.2 %; Hematocrit 38.6 % (37.5-50.1); Hemoglobin 11.4 g/dL (12.9-16.9); Immature Granulocytes % 3.8 % (0-4); Lymphocytes % 9.3 %; Mean Corpuscular HGB Conc 29.5 g/dL (31.6-35.5); Mean Corpuscular Hemoglobin 26.8 pg (28.0-33.3); Mean Corpuscular Volume 90.6 fL (83.0-100.0); Mean Platelet Volume 11.5 fL (9.4-12.4); Monocytes # 0.8 K/mcL (0.0-1.3); Monocytes % 3.9 %; Neutrophils # 17.5 K/mcL (1.6-8.9); Nucleated Red Blood Cells 0.5 /100 WBC (0); Platelet Count 308 K/mcL (140-400); Red Blood Count 4.26 M/mcL (4.19-5.50); Segmented Neutrophils % 80.9 %; White Blood Count 21.6 K/mcL (4.3-11.1)
[2020-02-26 21:40] LABS: INR 1.1; Prothrombin Time 12.8 Seconds (9.4-12.1)
[2020-02-26 21:42] LABS: Activated Partial Thrombo Time 30.6 Seconds (26.0-36.0)
[2020-02-26] MEDS ORDERED: Isovue-370 500 ML BOTTLE IVP ONE (21:56)
[2020-02-26] MEDS ORDERED: cefTRIAXone 1,000 MG in Water for inj. (sterile) 10 ML IVP ONE (22:01)
[2020-02-26] MEDS ORDERED: Azithromycin 500 MG in 0.9 % Sodium Chloride 250 ML IVPB ONE (22:02)
[2020-02-26 22:18] LABS: Alanine Aminotransferase 10 Units/L (7-52); Albumin 3.8 g/dL (3.5-5.7); Albumin/Globulin Ratio 0.9 (1.1-2.2); Alkaline Phosphatase 109 Units/L (34-104); Aspartate Amino Transferase 17 Units/L (13-39); BUN/Creatinine Ratio 51 (6-26); Bilirubin,Direct 0.1 mg/dL (0.0-0.2); Bilirubin,Indirect 0.3 mg/dL (0.0-1.0); Bilirubin,Total 0.4 mg/dL (0.3-1.0); Blood Urea Nitrogen 43 mg/dL (8-23); C-Reactive Protein 77 mg/L (Less than 10); Calcium 9.6 mg/dL (8.6-10.3); Carbon Dioxide 42 mEq/L (23-29); Chloride 93 mEq/L (98-107); Ferritin 74 ng/mL (20-250); Globulin 4.4 g/dL (2.4-3.5); Glucose 94 mg/dL (70-105); Lactate Dehydrogenase 229 Units/L (140-271); Magnesium 1.8 mg/dL (1.6-2.6); Osmolality,Calculated 303 (280-300); Potassium 4.6 mEq/L (3.5-5.1); Sodium 141 mEq/L (136-145); Total Protein 8.2 g/dL (6.4-8.9); Troponin I < 0.03 ng/mL (< 0.04); eGFR For African Americans > 60 (> 60); eGFR For Non-African Americans > 60 (> 60)
[2020-02-26] MEDS ORDERED: Dexamethasone 4 MG/ML VIAL IVP ONE (23:06)
[2020-02-27] LABS: ABG Base Excess 13 mEq/L (-2 to 3); ABG HCO3 43 mEq/L (21-27); ABG Oxygen Saturation 100 % (95-98); ABG PCO2 90 mmHg (35-45); ABG PH 7.28 pH Units (7.32-7.45); ABG PO2 258 mmHg (85-104); ABG TCO2 46 mEq/L (20-26)
[2020-02-27] MEDS ORDERED: Naloxone 0.4 MG/ML INJ IVP PRN (00:24)
[2020-02-27] MEDS ORDERED: Acetaminophen 325 MG TABLET PO PRN (00:24)
[2020-02-27] MEDS ORDERED: Ondansetron ODT 4 MG TAB.RAPDIS SL PRN (00:24)
[2020-02-27] MEDS ORDERED: D5% in Water 1,000 ML IVC PRN (00:26)
[2020-02-27] MEDS ORDERED: *HR* Dextrose 50 % in Water (Vial) 50 ML VIAL IVP PRN (00:26)
[2020-02-27] MEDS ORDERED: Dextrose Gel 15 GM/37.5 ML TUBE PO PRN ×2 (00:26)
[2020-02-27 04:16] LABS: Adenovirus Not Detected (Not Detect); Bordetella Pertussis Not Detected (Not Detect); Chlamydophila pneumoniae Not Detected (Not Detect); Coronavirus 229E Not Detected (Not Detect); Coronavirus HKU1 Not Detected (Not Detect); Coronavirus NL63 Not Detected (Not Detect); Coronavirus OC43 Not Detected (Not Detect); Human Metapneumovirus Not Detected (Not Detect); Human Rhinovirus/Enterovirus Not Detected (Not Detect); Influenza A Subtype 2009 H1 Not Detected (Not Detect); Influenza B Not Detected (Not Detect); Mycoplasma pneumoniae Not Detected (Not Detect); Parainfluenza Virus 1 Not Detected (Not Detect); Parainfluenza Virus 2 Not Detected (Not Detect); Parainfluenza Virus 3 Not Detected (Not Detect); Parainfluenza Virus 4 Not Detected (Not Detect); Respiratory Syncytial Virus Not Detected (Not Detect); SARS-CoV-2 Not Detected (Not Detect)
[2020-02-27] MEDS: Insulin LISPRO 300 UNITS/3 ML VIAL SQ SCH ×4 (04:26→16:55)
[2020-02-27] MEDS ORDERED: Haloperidol Lactate 5 MG/ML VIAL IVP ONE (05:30)
[2020-02-27 07:03] LABS: Basophils # 0.2 K/mcL (0.0-0.2); Basophils % 0.9 %; Eosinophils # 0.3 K/mcL (0.0-0.6); Eosinophils % 1.6 %; Hematocrit 36.2 % (37.5-50.1); Hemoglobin 10.6 g/dL (12.9-16.9); Lymphocytes # 2.1 K/mcL (0.6-4.6); Lymphocytes % 12.4 %; Mean Corpuscular HGB Conc 29.3 g/dL (31.6-35.5); Mean Corpuscular Hemoglobin 26.3 pg (28.0-33.3); Mean Corpuscular Volume 89.8 fL (83.0-100.0); Mean Platelet Volume 11.3 fL (9.4-12.4); Monocytes # 0.7 K/mcL (0.0-1.3); Monocytes % 4.3 %; Neutrophils # 13.5 K/mcL (1.6-8.9); Nucleated Red Blood Cells 0.3 /100 WBC (0); Platelet Count 289 K/mcL (140-400); Red Blood Count 4.03 M/mcL (4.19-5.50); Red Cell Distribution Width 16.4 % (11.5-14.5); Segmented Neutrophils % 77.8 %; White Blood Count 17.3 K/mcL (4.3-11.1)
[2020-02-27 07:30] LABS: BUN/Creatinine Ratio 54 (6-26); Blood Urea Nitrogen 42 mg/dL (8-23); Calcium 9.4 mg/dL (8.6-10.3); Carbon Dioxide 43 mEq/L (23-29); Chloride 94 mEq/L (98-107); Glucose 129 mg/dL (70-105); Magnesium 1.9 mg/dL (1.6-2.6); Osmolality,Calculated 306 (280-300); Phosphorous 3.2 mg/dL (2.7-4.5); Potassium 4.7 mEq/L (3.5-5.1); Sodium 142 mEq/L (136-145); eGFR For African Americans > 60 (> 60); eGFR For Non-African Americans > 60 (> 60)
[2020-02-27] MEDS: Ipratropium 1 PUFF INHALER IH SCH ×5 (08:55→23:33)
[2020-02-27] MEDS: Gabapentin 300 MG CAPSULE PO SCH ×4 (08:55→20:51)
[2020-02-27] MEDS: Aspirin Enteric Coated 81 MG Tablet PO SCH (08:55)
[2020-02-27] MEDS: Dexamethasone 4 MG/ML VIAL IVP SCH (08:55)
[2020-02-27 09:21] LABS: ABG Base Excess 17 mEq/L (-2 to 3); ABG HCO3 45 mEq/L (21-27); ABG Oxygen Saturation 96 % (95-98); ABG PCO2 74 mmHg (35-45); ABG PO2 89 mmHg (85-104); ABG TCO2 48 mEq/L (20-26); Blood Gas Pressure Support 14 cm H2O
[2020-02-27] MEDS ORDERED: *HR* LORazepam 2 MG/ML VIAL IVP PRN ×2 (12:48)
[2020-02-27] MEDS: Folic Acid 1 MG TABLET PO SCH (13:35)
[2020-02-27] MEDS: Erythromycin OPTH Oint RIGHT EYE SCH ×3 (13:35→20:52)
[2020-02-27] MEDS: Thiamine (B-1) 100 MG TABLET PO SCH (13:35)
[2020-02-27] MEDS: Vitamin B Complex/Vit C/Vit E 1 EACH TABLET PO SCH (13:35)
[2020-02-27] MEDS ORDERED: QUEtiapine Fumarate 25 MG TABLET PO PRN (14:13)
[2020-02-27] MEDS ORDERED: Baclofen 10 MG TABLET PO PRN (14:13)
[2020-02-27 14:50] LABS: Bilirubin,Urine Negative (Negative); Blood,Urine Negative (Negative); Clarity,Urine Clear (Clear); Color,Urine Light-Yellow (Yellow); Glucose,Urine (UA) Normal (Normal); Ketones,Urine Trace mg/dL (Negative); Leukocyte Esterase,Urine Negative (Negative); Nitrite,Urine Negative (Negative); Protein,Urine 100 mg/dL (Neg-Trace); RBC,Urine 0-3 per hpf (0-3); Urobilinogen,Urine Normal (Normal); WBC,Urine 0-3 per hpf (0-3)
[2020-02-27 14:56] LABS: Amphetamine Screen,Urine Negative ng/mL (Cutoff=1000); Barbiturate Screen,Urine Negative ng/mL (Cutoff=200); Benzodiazepines Screen,Urine Negative ng/mL (Cutoff=200); Cannabinoid Screen,Urine Negative ng/mL (Cutoff = 50); Cocaine Screen,Urine Negative ng/mL (Cutoff= 300); Opiate Screen,Urine Negative ng/mL (Cutoff=300); Phencyclidine Screen,Urine Negative ng/mL (Cutoff=25)
[2020-02-27] MEDS: Budesonide/Formoterol 160/4.5 1 PUFF INH IH SCH (20:25)
[2020-02-27] MEDS: cefTRIAXone 1,000 MG in Water for inj. (sterile) 10 ML IVP SCH (20:50)
[2020-02-27] MEDS: BuPROPion SR (12 HR) 150 MG TABLET PO SCH (20:51)
[2020-02-27] MEDS: QUEtiapine Fumarate 100 MG TABLET PO SCH (20:51)
[2020-02-27] MEDS: Insulin DETEMIR 100 UNIT/ML X5UNITS SQ SCH (20:52)
[2020-02-27] MEDS ORDERED: Azithromycin 500 MG in 0.9 % Sodium Chloride 250 ML IVPB SCH (22:00)
[2020-02-28] MEDS: Ipratropium 1 PUFF INHALER IH SCH ×6 (03:54→23:27)
[2020-02-28] MEDS: Budesonide/Formoterol 160/4.5 1 PUFF INH IH SCH ×2 (07:24→19:51)
[2020-02-28] MEDS: Insulin LISPRO 300 UNITS/3 ML VIAL SQ SCH ×3 (08:55→16:27)
[2020-02-28] MEDS: Aspirin Enteric Coated 81 MG Tablet PO SCH (09:36)
[2020-02-28] MEDS: Gabapentin 300 MG CAPSULE PO SCH ×4 (09:36→20:06)
[2020-02-28] MEDS: Thiamine (B-1) 100 MG TABLET PO SCH (09:37)
[2020-02-28] MEDS: Cholecalciferol (D-3) 1,000 UNIT (25MCG) TABLET PO SCH (09:37)
[2020-02-28] MEDS: BuPROPion SR (12 HR) 150 MG TABLET PO SCH ×2 (09:37→20:06)
[2020-02-28] MEDS: Vitamin B Complex/Vit C/Vit E 1 EACH TABLET PO SCH (09:37)
[2020-02-28] MEDS: Dexamethasone 4 MG/ML VIAL IVP SCH (09:37)
[2020-02-28] MEDS: Erythromycin OPTH Oint RIGHT EYE SCH ×3 (09:38→20:27)
[2020-02-28] MEDS: Folic Acid 1 MG TABLET PO SCH (09:40)
[2020-02-28 11:01] LABS: Adenovirus Not Detected (Not Detect); Bordetella Pertussis Not Detected (Not Detect); Chlamydophila pneumoniae Not Detected (Not Detect); Coronavirus 229E Not Detected (Not Detect); Coronavirus HKU1 Not Detected (Not Detect); Coronavirus NL63 Not Detected (Not Detect); Coronavirus OC43 Not Detected (Not Detect); Human Metapneumovirus Not Detected (Not Detect); Human Rhinovirus/Enterovirus Not Detected (Not Detect); Influenza A Subtype 2009 H1 Not Detected (Not Detect); Influenza B Not Detected (Not Detect); Mycoplasma pneumoniae Not Detected (Not Detect); Parainfluenza Virus 1 Not Detected (Not Detect); Parainfluenza Virus 2 Not Detected (Not Detect); Parainfluenza Virus 3 Not Detected (Not Detect); Parainfluenza Virus 4 Not Detected (Not Detect); Respiratory Syncytial Virus Not Detected (Not Detect); SARS-CoV-2 Not Detected (Not Detect)
[2020-02-28 12:01] LABS: Basophils # 0.1 K/mcL (0.0-0.2); Basophils % 0.5 %; Eosinophils # 0.2 K/mcL (0.0-0.6); Hematocrit 34.1 % (37.5-50.1); Hemoglobin 9.9 g/dL (12.9-16.9); Immature Granulocytes % 1.1 % (0-4); Lymphocytes # 1.5 K/mcL (0.6-4.6); Lymphocytes % 9.6 %; Mean Corpuscular Volume 92.9 fL (83.0-100.0); Mean Platelet Volume 11.7 fL (9.4-12.4); Monocytes # 0.6 K/mcL (0.0-1.3); Monocytes % 4.1 %; Neutrophils # 13.2 K/mcL (1.6-8.9); Platelet Count 289 K/mcL (140-400); Red Blood Count 3.67 M/mcL (4.19-5.50); Red Cell Distribution Width 16.8 % (11.5-14.5); Segmented Neutrophils % 83.7 %; White Blood Count 15.7 K/mcL (4.3-11.1)
[2020-02-28 12:27] LABS: Alanine Aminotransferase 7 Units/L (7-52); Albumin 3.3 g/dL (3.5-5.7); Albumin/Globulin Ratio 0.9 (1.1-2.2); Alkaline Phosphatase 82 Units/L (34-104); Aspartate Amino Transferase 12 Units/L (13-39); BUN/Creatinine Ratio 44 (6-26); Bilirubin,Total 0.3 mg/dL (0.3-1.0); Blood Urea Nitrogen 42 mg/dL (8-23); Calcium 9.1 mg/dL (8.6-10.3); Carbon Dioxide 42 mEq/L (23-29); Chloride 93 mEq/L (98-107); Globulin 3.8 g/dL (2.4-3.5); Glucose 197 mg/dL (70-105); Osmolality,Calculated 306 (280-300); Potassium 4.5 mEq/L (3.5-5.1); Sodium 140 mEq/L (136-145); Total Protein 7.1 g/dL (6.4-8.9); eGFR For African Americans > 60 (> 60); eGFR For Non-African Americans > 60 (> 60)
[2020-02-28 13:59] LABS: Lactate Dehydrogenase 181 Units/L (140-271)
[2020-02-28] MEDS ORDERED: Furosemide 20 MG/2 ML VIAL IVP ONE (14:15)
[2020-02-28 14:16] LABS: ABG Base Excess 23 mEq/L (-2 to 3); ABG HCO3 54 mEq/L (21-27); ABG Oxygen Saturation 87 % (95-98); ABG PCO2 113 mmHg (35-45); ABG PH 7.29 pH Units (7.32-7.45); ABG PO2 64 mmHg (85-104); ABG TCO2 > 50 mEq/L (20-26)
[2020-02-28 15:11] LABS: Fibrinogen 598 mg/dL (169-393)
[2020-02-28 15:22] LABS: D-Dimer 1361 ng/mLFEU (0-500)
[2020-02-28] MEDS: Furosemide 20 MG/2 ML VIAL IVP SCH (15:44)
[2020-02-28] MEDS: Doxycycline 100 MG in 0.9 % Sodium Chloride Mini Bag 100 ML IVPB SCH (16:53)
[2020-02-28] MEDS: MethylPREDNISolone 40 MG/ML VIAL IVP SCH (16:54)
[2020-02-28] MEDS: QUEtiapine Fumarate 100 MG TABLET PO SCH (20:06)
[2020-02-28] MEDS: Insulin DETEMIR 100 UNIT/ML X5UNITS SQ SCH (20:07)
[2020-02-28] MEDS: cefTRIAXone 1,000 MG in Water for inj. (sterile) 10 ML IVP SCH (20:07)
[2020-02-28] MEDS: *HR* LORazepam 2 MG/ML VIAL IVP PRN (22:40)
[2020-02-29 02:39] LABS: Hemoglobin 9.1 g/dL (12.9-16.9); Immature Granulocytes % 1.2 % (0-4)
[2020-02-29 02:41] LABS: Basophils % 0.2 %; Hematocrit 31.9 % (37.5-50.1); Lymphocytes # 1.4 K/mcL (0.6-4.6); Lymphocytes % 10.6 %; Mean Corpuscular HGB Conc 28.5 g/dL (31.6-35.5); Mean Corpuscular Hemoglobin 26.5 pg (28.0-33.3); Mean Corpuscular Volume 92.7 fL (83.0-100.0); Mean Platelet Volume 11.2 fL (9.4-12.4); Monocytes # 0.4 K/mcL (0.0-1.3); Monocytes % 3.3 %; Neutrophils # 11.2 K/mcL (1.6-8.9); Platelet Count 251 K/mcL (140-400); Red Blood Count 3.44 M/mcL (4.19-5.50); Red Cell Distribution Width 16.1 % (11.5-14.5); Segmented Neutrophils % 84.7 %; White Blood Count 13.2 K/mcL (4.3-11.1)
[2020-02-29 02:50] LABS: Alanine Aminotransferase 7 Units/L (7-52); Albumin 3.2 g/dL (3.5-5.7); Albumin/Globulin Ratio 0.9 (1.1-2.2); Alkaline Phosphatase 86 Units/L (34-104); Aspartate Amino Transferase 10 Units/L (13-39); BUN/Creatinine Ratio 47 (6-26); Bilirubin,Total 0.2 mg/dL (0.3-1.0); Blood Urea Nitrogen 44 mg/dL (8-23); Calcium 9.4 mg/dL (8.6-10.3); Carbon Dioxide > 45 mEq/L (23-29); Chloride 92 mEq/L (98-107); Globulin 3.6 g/dL (2.4-3.5); Glucose 200 mg/dL (70-105); Osmolality,Calculated 311 (280-300); Potassium 5.1 mEq/L (3.5-5.1); Sodium 142 mEq/L (136-145); Total Protein 6.8 g/dL (6.4-8.9); eGFR For African Americans > 60 (> 60); eGFR For Non-African Americans > 60 (> 60)
[2020-02-29] MEDS: Ipratropium 1 PUFF INHALER IH SCH ×6 (03:53→23:45)
[2020-02-29 04:11] LABS: Platelet Estimate Normal (Normal)
[2020-02-29 04:40] LABS: ABG Base Excess 23 mEq/L (-2 to 3); ABG HCO3 54 mEq/L (21-27); ABG Oxygen Saturation 94 % (95-98); ABG PCO2 108 mmHg (35-45); ABG PO2 84 mmHg (85-104); ABG TCO2 > 50 mEq/L (20-26)
[2020-02-29] MEDS: Doxycycline 100 MG in 0.9 % Sodium Chloride Mini Bag 100 ML IVPB SCH ×2 (05:16→17:44)
[2020-02-29] MEDS: MethylPREDNISolone 40 MG/ML VIAL IVP SCH ×2 (05:16→17:44)
[2020-02-29] MEDS: Budesonide/Formoterol 160/4.5 1 PUFF INH IH SCH ×2 (08:00→20:25)
[2020-02-29] MEDS: Cholecalciferol (D-3) 1,000 UNIT (25MCG) TABLET PO SCH (09:42)
[2020-02-29] MEDS: Vitamin B Complex/Vit C/Vit E 1 EACH TABLET PO SCH (09:42)
[2020-02-29] MEDS: BuPROPion SR (12 HR) 150 MG TABLET PO SCH ×2 (09:42→21:04)
[2020-02-29] MEDS: Thiamine (B-1) 100 MG TABLET PO SCH (09:42)
[2020-02-29] MEDS: Folic Acid 1 MG TABLET PO SCH (09:43)
[2020-02-29] MEDS: Furosemide 20 MG/2 ML VIAL IVP SCH (09:43)
[2020-02-29] MEDS: Aspirin Enteric Coated 81 MG Tablet PO SCH (09:43)
[2020-02-29] MEDS: Erythromycin OPTH Oint RIGHT EYE SCH ×3 (10:21→21:19)
[2020-02-29] MEDS: Gabapentin 300 MG CAPSULE PO SCH ×4 (10:25→21:04)
[2020-02-29] MEDS: Insulin LISPRO 300 UNITS/3 ML VIAL SQ SCH ×3 (10:27→17:44)
[2020-02-29 11:02] LABS: Adenovirus Not Detected (Not Detect); Bordetella Pertussis Not Detected (Not Detect); Chlamydophila pneumoniae Not Detected (Not Detect); Coronavirus 229E Not Detected (Not Detect); Coronavirus HKU1 Not Detected (Not Detect); Coronavirus NL63 Not Detected (Not Detect); Coronavirus OC43 Not Detected (Not Detect); Human Metapneumovirus Not Detected (Not Detect); Human Rhinovirus/Enterovirus Not Detected (Not Detect); Influenza A Subtype 2009 H1 Not Detected (Not Detect); Influenza B Not Detected (Not Detect); Mycoplasma pneumoniae Not Detected (Not Detect); Parainfluenza Virus 1 Not Detected (Not Detect); Parainfluenza Virus 2 Not Detected (Not Detect); Parainfluenza Virus 3 Not Detected (Not Detect); Parainfluenza Virus 4 Not Detected (Not Detect); Respiratory Syncytial Virus Not Detected (Not Detect); SARS-CoV-2 Not Detected (Not Detect)
[2020-02-29 16:36] LABS: ABG Base Excess 25 mEq/L (-2 to 3); ABG HCO3 58 mEq/L (21-27); ABG Oxygen Saturation 92 % (95-98); ABG PCO2 111 mmHg (35-45); ABG PH 7.32 pH Units (7.32-7.45); ABG PO2 76 mmHg (85-104); ABG TCO2 > 50 mEq/L (20-26)
[2020-02-29] MEDS: cefTRIAXone 1,000 MG in Water for inj. (sterile) 10 ML IVP SCH (21:02)
[2020-02-29] MEDS: *HR* Heparin 5,000 UNIT/ML VIAL SQ SCH (21:05)
[2020-02-29] MEDS: QUEtiapine Fumarate 100 MG TABLET PO SCH (21:05)
[2020-02-29] MEDS: *HR* LORazepam 2 MG/ML VIAL IVP PRN (21:05)
[2020-02-29] MEDS: Insulin DETEMIR 100 UNIT/ML X5UNITS SQ SCH (21:05)
[2020-03-01 03:47] LABS: Basophils % 0.2 %; Eosinophils % 0.1 %; Hematocrit 32.5 % (37.5-50.1); Hemoglobin 9.5 g/dL (12.9-16.9); Immature Granulocytes % 0.6 % (0-4); Lymphocytes # 1.8 K/mcL (0.6-4.6); Mean Corpuscular HGB Conc 29.2 g/dL (31.6-35.5); Mean Corpuscular Hemoglobin 27.2 pg (28.0-33.3); Mean Corpuscular Volume 93.1 fL (83.0-100.0); Monocytes # 0.8 K/mcL (0.0-1.3); Monocytes % 4.2 %; Neutrophils # 16.9 K/mcL (1.6-8.9); Platelet Count 245 K/mcL (140-400); Red Blood Count 3.49 M/mcL (4.19-5.50); Red Cell Distribution Width 15.9 % (11.5-14.5); Segmented Neutrophils % 85.9 %; White Blood Count 19.7 K/mcL (4.3-11.1)
[2020-03-01] MEDS: Ipratropium 1 PUFF INHALER IH SCH ×6 (03:48→23:36)
[2020-03-01 04:11] LABS: ABG Base Excess 19 mEq/L (-2 to 3); ABG HCO3 51 mEq/L (21-27); ABG Oxygen Saturation 87 % (95-98); ABG PCO2 109 mmHg (35-45); ABG PH 7.28 pH Units (7.32-7.45); ABG PO2 65 mmHg (85-104); ABG TCO2 > 50 mEq/L (20-26); Blood Gas VT 500 cc
[2020-03-01 04:17] LABS: Alanine Aminotransferase 8 Units/L (7-52); Albumin 3.2 g/dL (3.5-5.7); Albumin/Globulin Ratio 0.9 (1.1-2.2); Alkaline Phosphatase 84 Units/L (34-104); Aspartate Amino Transferase 13 Units/L (13-39); BUN/Creatinine Ratio 47 (6-26); Bilirubin,Total 0.2 mg/dL (0.3-1.0); Blood Urea Nitrogen 38 mg/dL (8-23); Calcium 9.4 mg/dL (8.6-10.3); Carbon Dioxide > 45 mEq/L (23-29); Chloride 93 mEq/L (98-107); Globulin 3.6 g/dL (2.4-3.5); Glucose 138 mg/dL (70-105); Osmolality,Calculated 301 (280-300); Potassium 5.6 mEq/L (3.5-5.1); Sodium 140 mEq/L (136-145); Total Protein 6.8 g/dL (6.4-8.9); eGFR For African Americans > 60 (> 60); eGFR For Non-African Americans > 60 (> 60)
[2020-03-01] MEDS ORDERED: Doxycycline 100 MG VIAL ONE (05:11)
[2020-03-01] MEDS: Doxycycline 100 MG in 0.9 % Sodium Chloride Mini Bag 100 ML IVPB SCH ×2 (05:31→17:25)
[2020-03-01] MEDS: *HR* Heparin 5,000 UNIT/ML VIAL SQ SCH ×3 (05:31→20:45)
[2020-03-01] MEDS: MethylPREDNISolone 40 MG/ML VIAL IVP SCH ×2 (05:31→17:25)
[2020-03-01] MEDS: Insulin LISPRO 300 UNITS/3 ML VIAL SQ SCH ×3 (08:09→17:27)
[2020-03-01] MEDS: Budesonide/Formoterol 160/4.5 1 PUFF INH IH SCH ×2 (08:22→19:59)
[2020-03-01] MEDS: Gabapentin 300 MG CAPSULE PO SCH ×2 (09:55→12:59)
[2020-03-01] MEDS: Aspirin Enteric Coated 81 MG Tablet PO SCH (09:55)
[2020-03-01] MEDS: Folic Acid 1 MG TABLET PO SCH (09:55)
[2020-03-01] MEDS: Cholecalciferol (D-3) 1,000 UNIT (25MCG) TABLET PO SCH (09:55)
[2020-03-01] MEDS: BuPROPion SR (12 HR) 150 MG TABLET PO SCH ×2 (09:55→20:42)
[2020-03-01] MEDS: Thiamine (B-1) 100 MG TABLET PO SCH (09:55)
[2020-03-01] MEDS: Furosemide 20 MG/2 ML VIAL IVP SCH ×2 (09:56→20:45)
[2020-03-01] MEDS: Vitamin B Complex/Vit C/Vit E 1 EACH TABLET PO SCH (11:55)
[2020-03-01] MEDS: Erythromycin OPTH Oint RIGHT EYE SCH ×3 (11:55→21:02)
[2020-03-01 13:09] LABS: ABG Base Excess 12 mEq/L (-2 to 3); ABG HCO3 46 mEq/L (21-27); ABG Oxygen Saturation 94 % (95-98); ABG PCO2 111 mmHg (35-45); ABG PH 7.23 pH Units (7.32-7.45); ABG PO2 88 mmHg (85-104); ABG TCO2 50 mEq/L (20-26); Blood Gas Modality AVAPS; Blood Gas VT 500 cc
[2020-03-01] MEDS: Dexmedetomidine HCl 400 MCG/100 ML MLS IVC SCH (18:09)
[2020-03-01] MEDS: QUEtiapine Fumarate 100 MG TABLET PO SCH (20:42)
[2020-03-01] MEDS: cefTRIAXone 1,000 MG in Water for inj. (sterile) 10 ML IVP SCH (20:44)
[2020-03-01] MEDS: Insulin DETEMIR 100 UNIT/ML X5UNITS SQ SCH (20:45)
[2020-03-02 01:37] LABS: Basophils % 0.1 %; Eosinophils % 0.1 %; Immature Granulocytes % 0.6 % (0-4); Lymphocytes # 1.3 K/mcL (0.6-4.6); Lymphocytes % 8.6 %; Mean Corpuscular Hemoglobin 26.4 pg (28.0-33.3); Mean Corpuscular Volume 90.9 fL (83.0-100.0); Mean Platelet Volume 11.7 fL (9.4-12.4); Monocytes # 0.3 K/mcL (0.0-1.3); Neutrophils # 13.2 K/mcL (1.6-8.9); Platelet Count 226 K/mcL (140-400); Red Blood Count 3.41 M/mcL (4.19-5.50); Red Cell Distribution Width 15.8 % (11.5-14.5); Segmented Neutrophils % 88.6 %; White Blood Count 14.9 K/mcL (4.3-11.1)
[2020-03-02 02:11] LABS: BUN/Creatinine Ratio 47 (6-26); Blood Urea Nitrogen 40 mg/dL (8-23); Calcium 9.1 mg/dL (8.6-10.3); Carbon Dioxide 45 mEq/L (23-29); Chloride 89 mEq/L (98-107); Glucose 284 mg/dL (70-105); Magnesium 1.9 mg/dL (1.6-2.6); Osmolality,Calculated 298 (280-300); Phosphorous 2.9 mg/dL (2.7-4.5); Potassium 6.4 mEq/L (3.5-5.1); Sodium 134 mEq/L (136-145); eGFR For African Americans > 60 (> 60); eGFR For Non-African Americans > 60 (> 60)
[2020-03-02] MEDS: Ipratropium 1 PUFF INHALER IH SCH ×6 (03:24→23:32)
[2020-03-02] MEDS ORDERED: Calcium Gluconate 1gm/50mL 1 GM/50 ML BAG IVPB ONE (03:46)
[2020-03-02] MEDS ORDERED: *HR* Dextrose 50 % in Water (Vial) 50 ML VIAL IVP ONE (03:47)
[2020-03-02] MEDS ORDERED: Insulin Human Regular 10 UNIT in 0.9 % Sodium Chloride 10 ML IV ONE (03:47)
[2020-03-02] MEDS: MethylPREDNISolone 40 MG/ML VIAL IVP SCH ×2 (04:20→17:22)
[2020-03-02] MEDS: *HR* Heparin 5,000 UNIT/ML VIAL SQ SCH ×3 (04:20→21:56)
[2020-03-02] MEDS: Doxycycline 100 MG in 0.9 % Sodium Chloride Mini Bag 100 ML IVPB SCH ×2 (04:23→17:21)
[2020-03-02 06:41] LABS: BUN/Creatinine Ratio 51 (6-26); Blood Urea Nitrogen 40 mg/dL (8-23); Calcium 9.9 mg/dL (8.6-10.3); Carbon Dioxide > 45 mEq/L (23-29); Chloride 91 mEq/L (98-107); Glucose 120 mg/dL (70-105); Osmolality,Calculated 299 (280-300); Potassium 5.2 mEq/L (3.5-5.1); Sodium 139 mEq/L (136-145); eGFR For African Americans > 60 (> 60); eGFR For Non-African Americans > 60 (> 60)
[2020-03-02] MEDS: Budesonide/Formoterol 160/4.5 1 PUFF INH IH SCH ×2 (07:42→19:32)
[2020-03-02] MEDS: BuPROPion SR (12 HR) 150 MG TABLET PO SCH ×2 (08:02→20:28)
[2020-03-02] MEDS: Insulin LISPRO 300 UNITS/3 ML VIAL SQ SCH ×3 (08:23→17:21)
[2020-03-02] MEDS: Thiamine (B-1) 100 MG TABLET PO SCH (08:23)
[2020-03-02] MEDS: Cholecalciferol (D-3) 1,000 UNIT (25MCG) TABLET PO SCH (08:23)
[2020-03-02] MEDS: Aspirin Enteric Coated 81 MG Tablet PO SCH (08:24)
[2020-03-02] MEDS: Vitamin B Complex/Vit C/Vit E 1 EACH TABLET PO SCH (08:24)
[2020-03-02] MEDS: Erythromycin OPTH Oint RIGHT EYE SCH ×3 (08:25→20:29)
[2020-03-02] MEDS: Folic Acid 1 MG TABLET PO SCH (08:25)
[2020-03-02] MEDS: Furosemide 20 MG/2 ML VIAL IVP SCH ×2 (08:25→20:29)
[2020-03-02] MEDS: QUEtiapine Fumarate 100 MG TABLET PO SCH (20:29)
[2020-03-02] MEDS: Insulin DETEMIR 100 UNIT/ML X5UNITS SQ SCH (20:29)
[2020-03-02] MEDS: Dexmedetomidine HCl 400 MCG/100 ML MLS IVC SCH (20:30)
[2020-03-02] MEDS: cefTRIAXone 1,000 MG in Water for inj. (sterile) 10 ML IVP SCH (21:56)
[2020-03-03] MEDS: Dexmedetomidine HCl 400 MCG/100 ML MLS IVC SCH ×2 (01:31→08:20)
[2020-03-03] MEDS: Ipratropium 1 PUFF INHALER IH SCH ×5 (03:23→19:55)
[2020-03-03] MEDS: Doxycycline 100 MG in 0.9 % Sodium Chloride Mini Bag 100 ML IVPB SCH ×2 (05:21→17:15)
[2020-03-03] MEDS: *HR* Heparin 5,000 UNIT/ML VIAL SQ SCH ×3 (05:21→21:49)
[2020-03-03] MEDS: MethylPREDNISolone 40 MG/ML VIAL IVP SCH ×2 (05:21→17:15)
[2020-03-03 06:19] LABS: Basophils % 0.1 %; Eosinophils % 0.3 %; Hematocrit 31.6 % (37.5-50.1); Hemoglobin 9.4 g/dL (12.9-16.9); Immature Granulocytes % 0.5 % (0-4); Lymphocytes # 2.2 K/mcL (0.6-4.6); Lymphocytes % 19.9 %; Mean Corpuscular HGB Conc 29.7 g/dL (31.6-35.5); Mean Corpuscular Hemoglobin 26.8 pg (28.0-33.3); Mean Platelet Volume 12.1 fL (9.4-12.4); Monocytes # 0.6 K/mcL (0.0-1.3); Monocytes % 5.7 %; Neutrophils # 8.2 K/mcL (1.6-8.9); Platelet Count 218 K/mcL (140-400); Red Blood Count 3.51 M/mcL (4.19-5.50); Segmented Neutrophils % 73.5 %; White Blood Count 11.1 K/mcL (4.3-11.1)
[2020-03-03 06:50] LABS: BUN/Creatinine Ratio 48 (6-26); Blood Urea Nitrogen 45 mg/dL (8-23); Calcium 9.2 mg/dL (8.6-10.3); Carbon Dioxide > 45 mEq/L (23-29); Chloride 90 mEq/L (98-107); Glucose 171 mg/dL (70-105); Magnesium 1.7 mg/dL (1.6-2.6); Osmolality,Calculated 300 (280-300); Phosphorous 2.8 mg/dL (2.7-4.5); Potassium 5.4 mEq/L (3.5-5.1); Sodium 137 mEq/L (136-145); eGFR For African Americans > 60 (> 60); eGFR For Non-African Americans > 60 (> 60)
[2020-03-03] MEDS: Aspirin Enteric Coated 81 MG Tablet PO SCH (08:14)
[2020-03-03] MEDS: Thiamine (B-1) 100 MG TABLET PO SCH (08:14)
[2020-03-03] MEDS: Cholecalciferol (D-3) 1,000 UNIT (25MCG) TABLET PO SCH (08:15)
[2020-03-03] MEDS: Folic Acid 1 MG TABLET PO SCH (08:15)
[2020-03-03] MEDS: Vitamin B Complex/Vit C/Vit E 1 EACH TABLET PO SCH (08:15)
[2020-03-03] MEDS: BuPROPion SR (12 HR) 150 MG TABLET PO SCH ×2 (08:15→19:37)
[2020-03-03] MEDS: Furosemide 20 MG/2 ML VIAL IVP SCH ×2 (08:16→19:38)
[2020-03-03] MEDS: Budesonide/Formoterol 160/4.5 1 PUFF INH IH SCH ×2 (08:18→19:55)
[2020-03-03] MEDS: Insulin LISPRO 300 UNITS/3 ML VIAL SQ SCH ×3 (08:23→17:16)
[2020-03-03] MEDS: Erythromycin OPTH Oint RIGHT EYE SCH ×3 (08:25→19:37)
[2020-03-03] MEDS: QUEtiapine Fumarate 100 MG TABLET PO SCH (19:38)
[2020-03-03] MEDS: Insulin DETEMIR 100 UNIT/ML X5UNITS SQ SCH (20:18)
[2020-03-03] MEDS: cefTRIAXone 1,000 MG in Water for inj. (sterile) 10 ML IVP SCH (21:50)
[2020-03-04] MEDS: Ipratropium 1 PUFF INHALER IH SCH ×3 (00:06→08:01)
[2020-03-04] MEDS ORDERED: Melatonin 3 MG TABLET PO PRN (00:45)
[2020-03-04] MEDS: Doxycycline 100 MG in 0.9 % Sodium Chloride Mini Bag 100 ML IVPB SCH (05:20)
[2020-03-04] MEDS: *HR* Heparin 5,000 UNIT/ML VIAL SQ SCH (05:20)
[2020-03-04] MEDS: MethylPREDNISolone 40 MG/ML VIAL IVP SCH (05:20)
[2020-03-04 07:00] LABS: Basophils % 0.1 %; Eosinophils % 0.2 %; Hematocrit 31.7 % (37.5-50.1); Hemoglobin 9.8 g/dL (12.9-16.9); Lymphocytes # 2.4 K/mcL (0.6-4.6); Lymphocytes % 15.7 %; Mean Corpuscular HGB Conc 30.9 g/dL (31.6-35.5); Mean Corpuscular Hemoglobin 27.2 pg (28.0-33.3); Mean Corpuscular Volume 88.1 fL (83.0-100.0); Mean Platelet Volume 12.3 fL (9.4-12.4); Monocytes % 6.5 %; Neutrophils # 11.8 K/mcL (1.6-8.9); Platelet Count 283 K/mcL (140-400); Red Cell Distribution Width 16.4 % (11.5-14.5); Segmented Neutrophils % 76.5 %; White Blood Count 15.4 K/mcL (4.3-11.1)
[2020-03-04 07:05] VITALS: BP 138/82
[2020-03-04 07:21] LABS: BUN/Creatinine Ratio 44 (6-26); Blood Urea Nitrogen 50 mg/dL (8-23); Calcium 9.2 mg/dL (8.6-10.3); Carbon Dioxide 41 mEq/L (23-29); Chloride 90 mEq/L (98-107); Glucose 234 mg/dL (70-105); Magnesium 1.6 mg/dL (1.6-2.6); Osmolality,Calculated 303 (280-300); Phosphorous 2.3 mg/dL (2.7-4.5); Potassium 4.3 mEq/L (3.5-5.1); Sodium 136 mEq/L (136-145); eGFR For African Americans > 60 (> 60); eGFR For Non-African Americans > 60 (> 60)
[2020-03-04] MEDS: Budesonide/Formoterol 160/4.5 1 PUFF INH IH SCH (08:01)
[2020-03-04] MEDS: Thiamine (B-1) 100 MG TABLET PO SCH (08:16)
[2020-03-04] MEDS: Aspirin Enteric Coated 81 MG Tablet PO SCH (08:16)
[2020-03-04] MEDS: BuPROPion SR (12 HR) 150 MG TABLET PO SCH (08:16)
[2020-03-04] MEDS: Folic Acid 1 MG TABLET PO SCH (08:16)
[2020-03-04] MEDS: Cholecalciferol (D-3) 1,000 UNIT (25MCG) TABLET PO SCH (08:16)
[2020-03-04] MEDS: Furosemide 20 MG/2 ML VIAL IVP SCH (08:17)
[2020-03-04] MEDS: Vitamin B Complex/Vit C/Vit E 1 EACH TABLET PO SCH (08:17)
[2020-03-04] MEDS: Erythromycin OPTH Oint RIGHT EYE SCH (08:18)
[2020-03-04] MEDS: Insulin LISPRO 300 UNITS/3 ML VIAL SQ SCH (08:18)
[2020-03-04] MEDS ORDERED: FLU Vac QV 20-21 (6Month+)/PF 0.5 ML SYRINGE IM ONE (09:27)
== END 2020-03-04 11:02 | disposition home health service (06) | DRG 871 ==
LOC: EMEROOARM 20:57 → 2NENU 20:57 → SUATTDRO 02-27 01:13 → 2NENU 02-27 02:07 → SUATTDRO 02-27 13:14 → 2NNU 02-29 14:38
PROVIDERS: ADMIT Internal Medicine; ATTEND Internal Medicine

== ENCOUNTER 2020-08-26 11:20 | Inpatient (IN) ==
[2020-08-26] MEDS ORDERED: methylPREDNISolone 125 MG/2 ML VIAL IVP ONE (11:28)
[2020-08-26] MEDS ORDERED: Ipratropium/Albuterol Neb 3 ML IH ONE (11:28)
[2020-08-26 12:21] LABS: Nucleated Red Blood Cells 0.1 /100 WBC (0); Red Blood Count 3.43 M/mcL (4.19-5.50)
[2020-08-26] MEDS ORDERED: *HR* LORazepam 2 MG/ML VIAL IVP ONE (12:21)
[2020-08-26] MEDS ORDERED: Azithromycin 500 MG in 0.9 % Sodium Chloride 250 ML IVPB ONE (12:21)
[2020-08-26] MEDS ORDERED: cefTRIAXone 1,000 MG in Water for inj. (sterile) 10 ML IVP ONE (12:21)
[2020-08-26 12:22] LABS: Hemoglobin 9.2 g/dL (12.9-16.9); Mean Corpuscular HGB Conc 30.7 g/dL (31.6-35.5); Mean Corpuscular Hemoglobin 26.8 pg (28.0-33.3); Mean Corpuscular Volume 87.5 fL (83.0-100.0); Mean Platelet Volume 12.5 fL (9.4-12.4); Platelet Count 186 K/mcL (140-400); Red Cell Distribution Width 15.9 % (11.5-14.5)
[2020-08-26 12:36] LABS: White Blood Count 33.6 K/mcL (4.3-11.1)
[2020-08-26 13:01] LABS: Calcium 8.8 mg/dL (8.6-10.3); Potassium 4.4 mEq/L (3.5-5.1)
[2020-08-26 13:01] LABS: ABG Base Excess 8 mEq/L (-2 to 3); ABG HCO3 37 mEq/L (21-27); ABG Oxygen Saturation 94 % (95-98); ABG PCO2 83 mmHg (35-45); ABG PH 7.26 pH Units (7.32-7.45); ABG PO2 85 mmHg (85-104); ABG TCO2 40 mEq/L (20-26)
[2020-08-26 13:04] LABS: Lymphocytes # 1.7 K/mcL (0.6-4.6); Monocytes # 0.3 K/mcL (0.0-1.3); Neutrophils # 31.6 K/mcL (1.6-8.9); Platelet Estimate Normal (Normal); Toxic Granulation Present (Not Present); Toxic Vacuolation Present (Not Present)
[2020-08-26 13:05] LABS: Dohle Bodies Present (Not Present)
[2020-08-26 13:09] LABS: Troponin I 0.04 ng/mL (< 0.04)
[2020-08-26] MEDS ORDERED: Furosemide 40 MG/4 ML VIAL IVP ONE (14:16)
[2020-08-26] MEDS ORDERED: QUEtiapine Fumarate 25 MG TABLET PO PRN (14:18)
[2020-08-26] MEDS ORDERED: Nicotine 2 MG GUM BC PRN (14:20)
[2020-08-26] MEDS ORDERED: Acetaminophen 325 MG TABLET PO PRN (14:24)
[2020-08-26] MEDS ORDERED: Naloxone 0.4 MG/ML INJ IVP PRN (14:24)
[2020-08-26] MEDS ORDERED: Melatonin 3 MG TABLET PO PRN (14:24)
[2020-08-26] MEDS ORDERED: Ondansetron 4 MG/2 ML VIAL IVP PRN (14:24)
[2020-08-26] MEDS ORDERED: *HR* Dextrose 50 % in Water (Vial) 50 ML VIAL IVP PRN (14:26)
[2020-08-26] MEDS ORDERED: D5% in Water 1,000 ML IVC PRN (14:26)
[2020-08-26] MEDS ORDERED: Ipratropium/Albuterol Neb 3 ML IH PRN (14:26)
[2020-08-26] MEDS ORDERED: Dextrose Gel 15 GM/37.5 ML TUBE PO PRN ×2 (14:26)
[2020-08-26 14:38] LABS: ABG Base Excess 6 mEq/L (-2 to 3); ABG HCO3 36 mEq/L (21-27); ABG Oxygen Saturation 93 % (95-98); ABG PCO2 85 mmHg (35-45); ABG PH 7.23 pH Units (7.32-7.45); ABG PO2 85 mmHg (85-104); ABG TCO2 38 mEq/L (20-26)
[2020-08-26] MEDS ORDERED: 0.9 % Sodium Chloride 1,000 ML IVC SCH (15:30)
[2020-08-26 15:58] LABS: Adenovirus Not Detected (Not Detect); Bordetella Pertussis Not Detected (Not Detect); Chlamydophila pneumoniae Not Detected (Not Detect); Coronavirus 229E Not Detected (Not Detect); Coronavirus HKU1 Not Detected (Not Detect); Coronavirus NL63 Not Detected (Not Detect); Coronavirus OC43 Not Detected (Not Detect); Human Metapneumovirus Not Detected (Not Detect); Human Rhinovirus/Enterovirus Not Detected (Not Detect); Influenza A Subtype 2009 H1 Not Detected (Not Detect); Influenza B Not Detected (Not Detect); Mycoplasma pneumoniae Not Detected (Not Detect); Parainfluenza Virus 1 Not Detected (Not Detect); Parainfluenza Virus 2 Not Detected (Not Detect); Parainfluenza Virus 3 Not Detected (Not Detect); Parainfluenza Virus 4 Not Detected (Not Detect); Respiratory Syncytial Virus Not Detected (Not Detect); SARS-CoV-2 Not Detected (Not Detect)
[2020-08-26] MEDS: Ipratropium/Albuterol Neb 3 ML IH SCH ×3 (16:16→22:54)
[2020-08-26] MEDS: *HR* Heparin 5,000 UNIT/ML VIAL SQ SCH (16:42)
[2020-08-26] MEDS: Nicotine 14 MG PATCH.TD24 TD SCH ×2 (16:43→16:56)
[2020-08-26] MEDS: Insulin LISPRO 300 UNITS/3 ML VIAL SUBQ SCH (17:10)
[2020-08-26 18:35] LABS: ABG Base Excess 8 mEq/L (-2 to 3); ABG HCO3 38 mEq/L (21-27); ABG Oxygen Saturation 98 % (95-98); ABG PCO2 88 mmHg (35-45); ABG PH 7.24 pH Units (7.32-7.45); ABG PO2 138 mmHg (85-104); ABG TCO2 40 mEq/L (20-26); Blood Gas Modality avaps; Blood Gas VT 550 cc
[2020-08-26] MEDS: Budesonide/Formoterol 160/4.5 1 PUFF INH IH SCH (19:44)
[2020-08-26] MEDS: QUEtiapine Fumarate 100 MG TABLET PO SCH (20:25)
[2020-08-26] MEDS: BuPROPion SR (12 HR) 150 MG TABLET PO SCH (20:25)
[2020-08-26] MEDS: Insulin DETEMIR 100 UNIT/ML X5UNITS SUBQ SCH (23:55)
[2020-08-27] MEDS: MethylPREDNISolone 40 MG/ML VIAL IVP SCH ×4 (00:03→23:40)
[2020-08-27 01:00] LABS: VBG HCO3 34 mEq/L (21-27); VBG PCO2 66 mmHg (41-51); VBG PH 7.33 pH Units (7.32-7.42); VBG PO2 167 mmHg (25-50)
[2020-08-27 01:01] LABS: Hematocrit 29.4 % (37.5-50.1); Hemoglobin 9.1 g/dL (12.9-16.9); Mean Corpuscular Hemoglobin 26.9 pg (28.0-33.3); Mean Platelet Volume 12.6 fL (9.4-12.4); Platelet Count 206 K/mcL (140-400); Red Blood Count 3.38 M/mcL (4.19-5.50); Red Cell Distribution Width 15.9 % (11.5-14.5); White Blood Count 26.3 K/mcL (4.3-11.1)
[2020-08-27 01:02] LABS: Bacteria,Urine Few per hpf (None-Few); Bilirubin,Urine Negative (Negative); Blood,Urine Negative (Negative); Clarity,Urine Turbid (Clear); Color,Urine Yellow (Yellow); Glucose,Urine (UA) Normal (Normal); Ketones,Urine Negative (Negative); Leukocyte Esterase,Urine Negative (Negative); Mucus,Urine Few per lpf (None-Few); Nitrite,Urine Negative (Negative); PH,Urine 5.5 pH Units (5.0-8.0); Protein,Urine 50 mg/dL (Neg-Trace); RBC,Urine 0-3 per hpf (0-3); Specific Gravity,Urine 1.017 (1.010-1.025); WBC,Urine 0-3 per hpf (0-3)
[2020-08-27 01:05] LABS: Sodium, Urine 18.5 mEq/L
[2020-08-27 01:18] LABS: Magnesium 1.8 mg/dL (1.6-2.6); Potassium 4.8 mEq/L (3.5-5.1)
[2020-08-27 01:22] LABS: Troponin I 0.04 ng/mL (< 0.04)
[2020-08-27] MEDS: Ipratropium/Albuterol Neb 3 ML IH SCH ×6 (03:52→20:14)
[2020-08-27] MEDS: Insulin LISPRO 300 UNITS/3 ML VIAL SUBQ SCH ×5 (05:22→23:45)
[2020-08-27] MEDS: Budesonide/Formoterol 160/4.5 1 PUFF INH IH SCH ×3 (07:09→20:16)
[2020-08-27 07:52] LABS: Enterococcus by PCR Not Detected (Not Detect); Staphylococcus aureus by PCR Not Detected (Not Detect); Staphylococcus by PCR Not Detected (Not Detect)
[2020-08-27 07:53] LABS: Acinetobacter baumannii by PCR Not Detected (Not Detect); Candida albicans by PCR Not Detected (Not Detect); Candida glabrata by PCR Not Detected (Not Detect); Candida krusei by PCR Not Detected (Not Detect); Candida parapsilosis by PCR Not Detected (Not Detect); Candida tropicalis by PCR Not Detected (Not Detect); Enterobacter cloacae Cmplx PCR Not Detected (Not Detect); Enterobacteriaceae by PCR Not Detected (Not Detect); Escherichia coli by PCR Not Detected (Not Detect); Klebsiella oxytoca by PCR Not Detected (Not Detect); Klebsiella pneumoniae by PCR Not Detected (Not Detect); Proteus by PCR Not Detected (Not Detect); Pseudomonas aeruginosa by PCR Not Detected (Not Detect); Serratia marcescens by PCR Not Detected (Not Detect); Streptococcus agalactiae(B)PCR Not Detected (Not Detect); Streptococcus pneumoniae PCR DETECTED (Not Detect); Streptococcus pyogenes (A) PCR Not Detected (Not Detect)
[2020-08-27] MEDS: *HR* Heparin 5,000 UNIT/ML VIAL SQ SCH ×4 (08:21→23:40)
[2020-08-27] MEDS: Aspirin Enteric Coated 81 MG Tablet PO SCH (08:21)
[2020-08-27] MEDS: BuPROPion SR (12 HR) 150 MG TABLET PO SCH ×2 (08:21→20:16)
[2020-08-27] MEDS: Azithromycin 250 MG TABLET PO SCH (08:21)
[2020-08-27] MEDS: cefTRIAXone 1,000 MG in Water for inj. (sterile) 10 ML IVP SCH (08:21)
[2020-08-27] MEDS: Nicotine 14 MG PATCH.TD24 TD SCH (08:44)
[2020-08-27] MEDS ORDERED: predniSONE 20 MG TABLET PO SCH (09:00)
[2020-08-27 09:41] LABS: ABG Base Excess 7 mEq/L (-2 to 3); ABG HCO3 36 mEq/L (21-27); ABG Oxygen Saturation 95 % (95-98); ABG PCO2 88 mmHg (35-45); ABG PH 7.22 pH Units (7.32-7.45); ABG PO2 98 mmHg (85-104); ABG TCO2 39 mEq/L (20-26)
[2020-08-27] MEDS ORDERED: *HR* LORazepam 2 MG/ML VIAL IVP ONE (10:47)
[2020-08-27 15:02] LABS: ABG Base Excess 8 mEq/L (-2 to 3); ABG HCO3 34 mEq/L (21-27); ABG Oxygen Saturation 93 % (95-98); ABG PCO2 62 mmHg (35-45); ABG PH 7.35 pH Units (7.32-7.45); ABG PO2 72 mmHg (85-104); ABG TCO2 36 mEq/L (20-26)
[2020-08-27 16:43] LABS: Protein/Creatinine Ratio,Urine 1.62 mg/mg (0.00-0.20)
[2020-08-27] MEDS: Albumin 25% 25gram/100mL 25 GM/100 ML IV.SOLN IVPB SCH ×2 (17:06→23:37)
[2020-08-27] MEDS: QUEtiapine Fumarate 100 MG TABLET PO SCH (20:16)
[2020-08-27] MEDS: Insulin DETEMIR 100 UNIT/ML X5UNITS SUBQ SCH (20:24)
[2020-08-27] MEDS ORDERED: Haloperidol Lactate 5 MG/ML VIAL IVP ONE (22:51)
[2020-08-27] MEDS: Pantoprazole 40 MG VIAL IVP SCH ×2 (23:28)
[2020-08-28] MEDS: Ipratropium/Albuterol Neb 3 ML IH SCH ×7 (00:15→22:55)
[2020-08-28] MEDS ORDERED: *HR* Metoprolol 5 MG/5 ML VIAL IVP ONE ×2 (01:39→07:59)
[2020-08-28 03:54] LABS: Uric Acid 11.1 mg/dL (2.3-7.6)
[2020-08-28] MEDS ORDERED: Haloperidol Lactate 5 MG/ML VIAL IVP ONE ×2 (04:13)
[2020-08-28 04:40] LABS: Hepatitis B Surface Antigen Nonreactive (Nonreactive)
[2020-08-28 05:09] LABS: Hepatitis B Core IgM Nonreactive (Nonreactive)
[2020-08-28 05:11] LABS: Hepatitis A Antibody IgM Nonreactive (Nonreactive); Hepatitis C Virus Antibody Nonreactive (Nonreactive)
[2020-08-28] MEDS: Insulin LISPRO 300 UNITS/3 ML VIAL SUBQ SCH ×5 (05:47→21:33)
[2020-08-28] MEDS: Budesonide/Formoterol 160/4.5 1 PUFF INH IH SCH ×2 (07:18→19:59)
[2020-08-28] MEDS: cefTRIAXone 1,000 MG in Water for inj. (sterile) 10 ML IVP SCH (08:13)
[2020-08-28] MEDS: MethylPREDNISolone 40 MG/ML VIAL IVP SCH ×2 (08:14→16:35)
[2020-08-28] MEDS: Albumin 25% 25gram/100mL 25 GM/100 ML IV.SOLN IVPB SCH ×2 (08:14→16:35)
[2020-08-28] MEDS: Azithromycin 250 MG TABLET PO SCH (08:14)
[2020-08-28] MEDS: BuPROPion SR (12 HR) 150 MG TABLET PO SCH (08:14)
[2020-08-28] MEDS: Aspirin Enteric Coated 81 MG Tablet PO SCH (08:15)
[2020-08-28] MEDS: Nicotine 14 MG PATCH.TD24 TD SCH (08:15)
[2020-08-28] MEDS: *HR* Heparin 5,000 UNIT/ML VIAL SQ SCH ×2 (08:15→16:35)
[2020-08-28 09:34] LABS: Hematocrit 27.4 % (37.5-50.1); Hemoglobin 8.3 g/dL (12.9-16.9); Mean Corpuscular HGB Conc 30.3 g/dL (31.6-35.5); Mean Corpuscular Hemoglobin 26.3 pg (28.0-33.3); Mean Corpuscular Volume 86.7 fL (83.0-100.0); Mean Platelet Volume 12.6 fL (9.4-12.4); Nucleated Red Blood Cells 0.6 /100 WBC (0); Platelet Count 209 K/mcL (140-400); Red Blood Count 3.16 M/mcL (4.19-5.50); Red Cell Distribution Width 16.1 % (11.5-14.5)
[2020-08-28 09:52] LABS: White Blood Count 10.6 K/mcL (4.3-11.1)
[2020-08-28 09:54] LABS: Calcium 9.1 mg/dL (8.6-10.3); Potassium 4.4 mEq/L (3.5-5.1)
[2020-08-28 10:28] LABS: Lymphocytes # 1.3 K/mcL (0.6-4.6); Monocytes # 0.4 K/mcL (0.0-1.3); Neutrophils # 8.9 K/mcL (1.6-8.9)
[2020-08-28 10:29] LABS: Anisocytosis 1+ (Not Present); Platelet Estimate Normal (Normal)
[2020-08-28 10:33] LABS: ABG Base Excess 7 mEq/L (-2 to 3); ABG HCO3 35 mEq/L (21-27); ABG Oxygen Saturation 95 % (95-98); ABG PCO2 73 mmHg (35-45); ABG PH 7.29 pH Units (7.32-7.45); ABG PO2 85 mmHg (85-104); ABG TCO2 37 mEq/L (20-26); Blood Gas VT 550 cc
[2020-08-28] MEDS ORDERED: Furosemide 40 MG/4 ML VIAL IVP ONE (11:08)
[2020-08-28 13:18] LABS: ABG Base Excess 8 mEq/L (-2 to 3); ABG HCO3 36 mEq/L (21-27); ABG Oxygen Saturation 93 % (95-98); ABG PCO2 73 mmHg (35-45); ABG PO2 77 mmHg (85-104); ABG TCO2 38 mEq/L (20-26)
[2020-08-28] MEDS: Insulin DETEMIR 100 UNIT/ML X5UNITS SUBQ SCH (21:27)
[2020-08-28] MEDS: QUEtiapine Fumarate 300 MG TABLET PO SCH (21:27)
[2020-08-29] MEDS: MethylPREDNISolone 40 MG/ML VIAL IVP SCH ×2 (00:11→07:47)
[2020-08-29] MEDS: *HR* Heparin 5,000 UNIT/ML VIAL SQ SCH ×4 (00:11→23:09)
[2020-08-29] MEDS: Pantoprazole 40 MG VIAL IVP SCH ×2 (00:11→20:56)
[2020-08-29] MEDS ORDERED: *HR* LORazepam 2 MG/ML VIAL IVP ONE (01:02)
[2020-08-29 02:54] LABS: Hematocrit 25.7 % (37.5-50.1); Hemoglobin 7.7 g/dL (12.9-16.9); Immature Platelets 10.1 % (1.1-6.1); Mean Corpuscular Hemoglobin 25.8 pg (28.0-33.3); Mean Corpuscular Volume 86.2 fL (83.0-100.0); Mean Platelet Volume 13.3 fL (9.4-12.4); Nucleated Red Blood Cells 0.9 /100 WBC (0); Platelet Count 195 K/mcL (140-400); Red Blood Count 2.98 M/mcL (4.19-5.50); Red Cell Distribution Width 16.1 % (11.5-14.5); White Blood Count 8.7 K/mcL (4.3-11.1)
[2020-08-29 03:10] LABS: Anisocytosis 1+ (Not Present); Hypochromasia Present (Not Present); Monocytes # 0.4 K/mcL (0.0-1.3); Neutrophils # 7.1 K/mcL (1.6-8.9); Platelet Estimate Normal (Normal)
[2020-08-29 03:13] LABS: Calcium 8.4 mg/dL (8.6-10.3); Potassium 4.2 mEq/L (3.5-5.1)
[2020-08-29] MEDS: Ipratropium/Albuterol Neb 3 ML IH SCH ×6 (03:22→23:16)
[2020-08-29] MEDS: Budesonide/Formoterol 160/4.5 1 PUFF INH IH SCH ×2 (07:25→19:45)
[2020-08-29] MEDS: Insulin LISPRO 300 UNITS/3 ML VIAL SUBQ SCH ×4 (07:44→20:57)
[2020-08-29] MEDS: Azithromycin 250 MG TABLET PO SCH (07:45)
[2020-08-29] MEDS: cefTRIAXone 1,000 MG in Water for inj. (sterile) 10 ML IVP SCH (07:45)
[2020-08-29] MEDS: Aspirin Enteric Coated 81 MG Tablet PO SCH (07:45)
[2020-08-29] MEDS: Nicotine 14 MG PATCH.TD24 TD SCH (07:46)
[2020-08-29] MEDS: QUEtiapine Fumarate 300 MG TABLET PO SCH (20:56)
[2020-08-29] MEDS: Insulin DETEMIR 100 UNIT/ML X5UNITS SUBQ SCH (20:57)
[2020-08-30 01:59] LABS: Hemoglobin 8.4 g/dL (12.9-16.9); Mean Corpuscular Hemoglobin 25.7 pg (28.0-33.3); Mean Corpuscular Volume 88.7 fL (83.0-100.0); Mean Platelet Volume 12.3 fL (9.4-12.4); Platelet Count 218 K/mcL (140-400); Red Blood Count 3.27 M/mcL (4.19-5.50); Red Cell Distribution Width 16.3 % (11.5-14.5)
[2020-08-30] MEDS: Ipratropium/Albuterol Neb 3 ML IH SCH ×5 (03:08→20:13)
[2020-08-30 03:09] LABS: Calcium 8.4 mg/dL (8.6-10.3); Potassium 4.2 mEq/L (3.5-5.1)
[2020-08-30] MEDS: Azithromycin 250 MG TABLET PO SCH (07:43)
[2020-08-30] MEDS: Aspirin Enteric Coated 81 MG Tablet PO SCH (07:43)
[2020-08-30] MEDS: predniSONE 20 MG TABLET PO SCH (07:43)
[2020-08-30] MEDS: Nicotine 14 MG PATCH.TD24 TD SCH (07:44)
[2020-08-30] MEDS: *HR* Heparin 5,000 UNIT/ML VIAL SQ SCH ×2 (07:44→16:48)
[2020-08-30] MEDS: cefTRIAXone 1,000 MG in Water for inj. (sterile) 10 ML IVP SCH (07:44)
[2020-08-30] MEDS: Insulin LISPRO 300 UNITS/3 ML VIAL SUBQ SCH ×4 (07:48→20:25)
[2020-08-30] MEDS: Budesonide/Formoterol 160/4.5 1 PUFF INH IH SCH ×2 (07:50→20:13)
[2020-08-30] MEDS: QUEtiapine Fumarate 300 MG TABLET PO SCH (20:23)
[2020-08-30] MEDS: Insulin DETEMIR 100 UNIT/ML X5UNITS SUBQ SCH (20:25)
[2020-08-31] MEDS: Ipratropium/Albuterol Neb 3 ML IH SCH ×7 (00:08→22:44)
[2020-08-31] MEDS: Pantoprazole 40 MG VIAL IVP SCH (01:26)
[2020-08-31] MEDS: *HR* Heparin 5,000 UNIT/ML VIAL SQ SCH ×2 (01:27→08:23)
[2020-08-31] MEDS: Budesonide/Formoterol 160/4.5 1 PUFF INH IH SCH ×2 (07:59→19:58)
[2020-08-31] MEDS: Aspirin Enteric Coated 81 MG Tablet PO SCH (08:23)
[2020-08-31] MEDS: predniSONE 20 MG TABLET PO SCH (08:23)
[2020-08-31] MEDS: cefTRIAXone 1,000 MG in Water for inj. (sterile) 10 ML IVP SCH (08:23)
[2020-08-31] MEDS: Nicotine 14 MG PATCH.TD24 TD SCH (08:23)
[2020-08-31] MEDS: Azithromycin 250 MG TABLET PO SCH (08:23)
[2020-08-31] MEDS: Insulin LISPRO 300 UNITS/3 ML VIAL SUBQ SCH ×4 (08:24→20:43)
[2020-08-31] MEDS: QUEtiapine Fumarate 300 MG TABLET PO SCH (20:39)
[2020-08-31] MEDS: Apixaban 5 MG TABLET PO SCH (20:41)
[2020-08-31] MEDS: Insulin DETEMIR 100 UNIT/ML X5UNITS SUBQ SCH (21:46)
[2020-09-01] MEDS: Ipratropium/Albuterol Neb 3 ML IH SCH ×3 (04:05→11:24)
[2020-09-01] MEDS: Budesonide/Formoterol 160/4.5 1 PUFF INH IH SCH (07:11)
[2020-09-01 07:19] LABS: Hematocrit 28.3 % (37.5-50.1); Hemoglobin 8.8 g/dL (12.9-16.9); Mean Corpuscular HGB Conc 31.1 g/dL (31.6-35.5); Mean Corpuscular Hemoglobin 27.1 pg (28.0-33.3); Mean Corpuscular Volume 87.1 fL (83.0-100.0); Platelet Count 276 K/mcL (140-400); Red Blood Count 3.25 M/mcL (4.19-5.50); Red Cell Distribution Width 16.2 % (11.5-14.5); White Blood Count 18.3 K/mcL (4.3-11.1)
[2020-09-01 07:58] LABS: BUN/Creatinine Ratio 52 (6-26); Blood Urea Nitrogen 45 mg/dL (8-23); Calcium 8.7 mg/dL (8.6-10.3); Carbon Dioxide 42 mEq/L (23-29); Chloride 100 mEq/L (98-107); Glucose 142 mg/dL (70-105); Magnesium 1.5 mg/dL (1.6-2.6); Osmolality,Calculated 312 (280-300); Potassium 4.1 mEq/L (3.5-5.1); Sodium 144 mEq/L (136-145); eGFR For African Americans > 60 (> 60); eGFR For Non-African Americans > 60 (> 60)
[2020-09-01] MEDS: Nicotine 14 MG PATCH.TD24 TD SCH (08:30)
[2020-09-01] MEDS: Insulin LISPRO 300 UNITS/3 ML VIAL SUBQ SCH (08:30)
[2020-09-01] MEDS: predniSONE 20 MG TABLET PO SCH (08:30)
[2020-09-01] MEDS: Aspirin Enteric Coated 81 MG Tablet PO SCH (08:30)
[2020-09-01] MEDS: Azithromycin 250 MG TABLET PO SCH (08:31)
[2020-09-01] MEDS: cefTRIAXone 1,000 MG in Water for inj. (sterile) 10 ML IVP SCH (08:31)
[2020-09-01] MEDS: Apixaban 5 MG TABLET PO SCH (08:31)
[2020-09-01 10:37] VITALS: BP 122/81
== END 2020-09-01 12:16 | disposition home health service (06) | DRG 871 ==
LOC: EMEROOARM 11:20 → 2NNU 11:20 → SUATTDRO 14:50 → 2NNU 16:00 → 3BNU 08-31 11:03
PROVIDERS: ADMIT Internal Medicine; ATTEND Internal Medicine

== ENCOUNTER 2020-09-10 09:53 | Inpatient (IN) ==
[2020-09-10 10:44] LABS: Basophils % 0.4 %; Eosinophils # 0.2 K/mcL (0.0-0.6); Eosinophils % 2.2 %; Hematocrit 24.7 % (37.5-50.1); Hemoglobin 7.2 g/dL (12.9-16.9); Immature Granulocytes % 0.3 % (0-4); Lymphocytes # 1.4 K/mcL (0.6-4.6); Lymphocytes % 13.5 %; Mean Corpuscular HGB Conc 29.1 g/dL (31.6-35.5); Mean Corpuscular Volume 92.5 fL (83.0-100.0); Mean Platelet Volume 12.6 fL (9.4-12.4); Monocytes # 0.8 K/mcL (0.0-1.3); Monocytes % 7.2 %; Platelet Count 266 K/mcL (140-400); Red Blood Count 2.67 M/mcL (4.19-5.50); Red Cell Distribution Width 16.2 % (11.5-14.5); Segmented Neutrophils % 76.4 %; White Blood Count 10.5 K/mcL (4.3-11.1)
[2020-09-10 10:52] LABS: INR 1.2; Prothrombin Time 14.3 Seconds (9.4-12.1)
[2020-09-10 10:54] LABS: Activated Partial Thrombo Time 29.1 Seconds (26.0-36.0)
[2020-09-10 11:03] LABS: Albumin 2.8 g/dL (3.5-5.7); Albumin/Globulin Ratio 0.6 (1.1-2.2); Bilirubin,Direct 0.1 mg/dL (0.0-0.2); Bilirubin,Indirect 0.2 mg/dL (0.0-1.0); Bilirubin,Total 0.3 mg/dL (0.3-1.0); Globulin 4.9 g/dL (2.4-3.5); Total Protein 7.7 g/dL (6.4-8.9)
[2020-09-10 11:05] LABS: BUN/Creatinine Ratio 29 (6-26); Blood Urea Nitrogen 40 mg/dL (8-23); Calcium 8.5 mg/dL (8.6-10.3); Carbon Dioxide 35 mEq/L (23-29); Chloride 97 mEq/L (98-107); Glucose 179 mg/dL (70-105); Osmolality,Calculated 290 (280-300); Potassium 6.2 mEq/L (3.5-5.1); Sodium 133 mEq/L (136-145); eGFR For African Americans > 60 (> 60); eGFR For Non-African Americans 53 (> 60)
[2020-09-10 11:06] LABS: Troponin I < 0.03 ng/mL (< 0.04)
[2020-09-10 11:47] LABS: ABG Base Excess 10 mEq/L (-2 to 3); ABG HCO3 38 mEq/L (21-27); ABG Oxygen Saturation 87 % (95-98); ABG PCO2 83 mmHg (35-45); ABG PH 7.27 pH Units (7.32-7.45); ABG PO2 64 mmHg (85-104); ABG TCO2 41 mEq/L (20-26)
[2020-09-10] MEDS ORDERED: Vancomycin 1,250 MG/262.5 ML IV.SOLN IVPB ONE (12:16)
[2020-09-10] MEDS ORDERED: Piperacillin/Tazobactam 4.5 GM in Water for inj. (sterile) 20 ML IVP ONE (12:16)
[2020-09-10 14:15] LABS: ABG Base Excess 9 mEq/L (-2 to 3); ABG HCO3 38 mEq/L (21-27); ABG Oxygen Saturation 84 % (95-98); ABG PCO2 84 mmHg (35-45); ABG PH 7.26 pH Units (7.32-7.45); ABG PO2 59 mmHg (85-104); ABG TCO2 40 mEq/L (20-26); Blood Gas Modality BiLevel; Blood Gas Pressure Support 7 cm H2O
[2020-09-10 15:14] LABS: ABG Base Excess 8 mEq/L (-2 to 3); ABG HCO3 37 mEq/L (21-27); ABG Oxygen Saturation 84 % (95-98); ABG PCO2 88 mmHg (35-45); ABG PH 7.24 pH Units (7.32-7.45); ABG PO2 61 mmHg (85-104); ABG TCO2 40 mEq/L (20-26); Blood Gas Modality avaps; Blood Gas VT 500 cc
[2020-09-10] MEDS ORDERED: Naloxone 0.4 MG/ML INJ IVP PRN (16:21)
[2020-09-10] MEDS ORDERED: *HR* Heparin 5,000 UNIT/ML VIAL IVP ONE (16:24)
[2020-09-10] MEDS ORDERED: *HR* Heparin 5,000 UNIT/ML VIAL IVP PRN ×2 (16:24)
[2020-09-10] MEDS ORDERED: Perflutren Lipid Microsphere 1.3 ML in 0.9 % Sodium Chloride 8.7 ML IVP PRN (16:25)
[2020-09-10] MEDS ORDERED: Heparin 25,000UNIT/250ML 1/2NS 25,000 UNIT/250 ML IV.SOLN IVC SCH (16:30)
[2020-09-10] MEDS ORDERED: Dextrose Gel 15 GM/37.5 ML TUBE PO PRN ×2 (16:31)
[2020-09-10] MEDS ORDERED: D5% in Water 1,000 ML IVC PRN (16:31)
[2020-09-10] MEDS ORDERED: Vancomycin (wt based) 1,000 MG VIAL IVPB SCH (17:00)
[2020-09-10 17:45] LABS: Bacteria,Urine Few per hpf (None-Few); Bilirubin,Urine Negative (Negative); Blood,Urine Small (Negative); Clarity,Urine Clear (Clear); Color,Urine Yellow (Yellow); Glucose,Urine (UA) 150 mg/dL (Normal); Hyaline Casts,Urine Moderate per lpf (None Seen); Ketones,Urine Negative (Negative); Leukocyte Esterase,Urine Negative (Negative); Nitrite,Urine Negative (Negative); Protein,Urine 70 mg/dL (Neg-Trace); RBC,Urine 0-3 per hpf (0-3); Specific Gravity,Urine 1.022 (1.010-1.025); Squamous Epithelial Cell,Urine Few per hpf (None-Few); Urobilinogen,Urine Normal (Normal); WBC,Urine 0-3 per hpf (0-3)
[2020-09-10] MEDS ORDERED: Ringers Solution, Lactated 1,000 ML IVC SCH ×2 (17:45→18:54)
[2020-09-10 17:56] LABS: Heparin anti-factor XA UFH < 0.04 IU/mL (0.30-0.70); INR 1.2; Prothrombin Time 14.2 Seconds (9.4-12.1)
[2020-09-10 18:53] LABS: BUN/Creatinine Ratio 29 (6-26); Blood Urea Nitrogen 38 mg/dL (8-23); Calcium 8.6 mg/dL (8.6-10.3); Carbon Dioxide 26 mEq/L (23-29); Chloride 97 mEq/L (98-107); Glucose 300 mg/dL (70-105); Osmolality,Calculated 290 (280-300); Potassium 6.8 mEq/L (3.5-5.1); Sodium 130 mEq/L (136-145); eGFR For African Americans > 60 (> 60); eGFR For Non-African Americans 54 (> 60)
[2020-09-10] MEDS ORDERED: Calcium Gluconate 1gm/50mL 1 GM/50 ML BAG IVPB ONE (18:55)
[2020-09-10] MEDS ORDERED: Insulin Human Regular 10 UNIT in 0.9 % Sodium Chloride 10 ML IV ONE ×2 (18:56→23:52)
[2020-09-10 19:15] LABS: Adenovirus Not Detected (Not Detect); Bordetella Pertussis Not Detected (Not Detect); Chlamydophila pneumoniae Not Detected (Not Detect); Coronavirus 229E Not Detected (Not Detect); Coronavirus HKU1 Not Detected (Not Detect); Coronavirus NL63 Not Detected (Not Detect); Coronavirus OC43 Not Detected (Not Detect); Human Metapneumovirus Not Detected (Not Detect); Human Rhinovirus/Enterovirus Not Detected (Not Detect); Influenza A Subtype 2009 H1 Not Detected (Not Detect); Influenza B Not Detected (Not Detect); Mycoplasma pneumoniae Not Detected (Not Detect); Parainfluenza Virus 1 Not Detected (Not Detect); Parainfluenza Virus 2 Not Detected (Not Detect); Parainfluenza Virus 3 Not Detected (Not Detect); Parainfluenza Virus 4 Not Detected (Not Detect); Respiratory Syncytial Virus Not Detected (Not Detect); SARS-CoV-2 Not Detected (Not Detect)
[2020-09-10] MEDS: Budesonide/Formoterol 160/4.5 1 PUFF INH IH SCH (19:51)
[2020-09-10] MEDS: Ipratropium/Albuterol Neb 3 ML IH SCH ×2 (19:51→23:44)
[2020-09-10] MEDS: Insulin LISPRO 300 UNITS/3 ML VIAL SUBQ SCH (20:21)
[2020-09-10] MEDS: Insulin DETEMIR 100 UNIT/ML X5UNITS SUBQ SCH ×2 (20:21→21:00)
[2020-09-10] MEDS: Nystatin Cream 15 GM TUBE TP SCH ×2 (20:21→21:00)
[2020-09-10] MEDS: Pantoprazole 40 MG VIAL IVP SCH (20:21)
[2020-09-10 20:23] LABS: Hemoglobin 7.3 g/dL (12.9-16.9); Red Cell Distribution Width 16.2 % (11.5-14.5)
[2020-09-10] MEDS: Piperacillin/Tazobactam 3.375 GM in 0.9 % Sodium Chloride Mini Bag 100 ML IVPB SCH (20:23)
[2020-09-10] MEDS: Heparin 25,000UNIT/250ML 1/2NS 25,000 UNIT/250 ML IV.SOLN IVC SCH (20:23)
[2020-09-10 20:24] LABS: Hematocrit 25.5 % (37.5-50.1); Mean Corpuscular HGB Conc 28.6 g/dL (31.6-35.5); Mean Corpuscular Hemoglobin 26.4 pg (28.0-33.3); Mean Corpuscular Volume 92.4 fL (83.0-100.0); Mean Platelet Volume 12.3 fL (9.4-12.4); Platelet Count 251 K/mcL (140-400); Red Blood Count 2.76 M/mcL (4.19-5.50); White Blood Count 10.5 K/mcL (4.3-11.1)
[2020-09-10] MEDS ORDERED: Piperacillin/Tazobactam 3.375 GM VIAL ONE (20:27)
[2020-09-10 20:45] LABS: BUN/Creatinine Ratio 31 (6-26); Blood Urea Nitrogen 39 mg/dL (8-23); Calcium 8.6 mg/dL (8.6-10.3); Carbon Dioxide 34 mEq/L (23-29); Chloride 96 mEq/L (98-107); Glucose 349 mg/dL (70-105); Osmolality,Calculated 293 (280-300); Potassium 7.2 mEq/L (3.5-5.1); Sodium 130 mEq/L (136-145); eGFR For African Americans > 60 (> 60); eGFR For Non-African Americans 57 (> 60)
[2020-09-10] MEDS ORDERED: Insulin DETEMIR 100 UNIT/ML X5UNITS SUBQ SCH (21:00)
[2020-09-10] MEDS: Albuterol Neb 7.5 MG, Sodium Chloride for inhalation 12 ML IH ONE ×2 (21:12→21:22)
[2020-09-10] MEDS: Albuterol 2.5 MG/3 ML NEBULIZER IH ONE ×2 (21:18→21:19)
[2020-09-10] MEDS: Albuterol 2.5 MG/3 ML NEBULIZER IH PRN (21:19)
[2020-09-10 23:06] LABS: VBG Ionized Calcium 1.11 mmol/L (1.15-1.35)
[2020-09-10 23:25] LABS: ABG Base Excess 10 mEq/L (-2 to 3); ABG HCO3 39 mEq/L (21-27); ABG Oxygen Saturation 92 % (95-98); ABG PCO2 84 mmHg (35-45); ABG PH 7.27 pH Units (7.32-7.45); ABG PO2 77 mmHg (85-104); ABG TCO2 41 mEq/L (20-26); Blood Gas Modality AVAPS; Blood Gas VT 600 cc
[2020-09-10 23:33] LABS: BUN/Creatinine Ratio 31 (6-26); Blood Urea Nitrogen 39 mg/dL (8-23); Calcium 8.7 mg/dL (8.6-10.3); Carbon Dioxide 36 mEq/L (23-29); Chloride 96 mEq/L (98-107); Creatine Kinase 235 Units/L (30-223); Glucose 283 mg/dL (70-105); Magnesium 1.8 mg/dL (1.6-2.6); Osmolality,Calculated 296 (280-300); Potassium 7.1 mEq/L (3.5-5.1); Sodium 133 mEq/L (136-145); eGFR For African Americans > 60 (> 60); eGFR For Non-African Americans 58 (> 60)
[2020-09-10] MEDS ORDERED: Calcium Gluconate 1gm/50mL 1 GM/50 ML BAG IVPB PRN (23:45)
[2020-09-10] MEDS: MethylPREDNISolone 40 MG/ML VIAL IVP SCH (23:50)
[2020-09-11] MEDS: 0.9 % Sodium Chloride 1,000 ML IVC SCH ×2 (00:04→05:26)
[2020-09-11] MEDS: Insulin LISPRO 300 UNITS/3 ML VIAL SUBQ SCH ×5 (00:08→23:29)
[2020-09-11 02:27] LABS: ABG Base Excess 11 mEq/L (-2 to 3); ABG HCO3 40 mEq/L (21-27); ABG Oxygen Saturation 85 % (95-98); ABG PCO2 82 mmHg (35-45); ABG PH 7.29 pH Units (7.32-7.45); ABG PO2 60 mmHg (85-104); ABG TCO2 42 mEq/L (20-26); Blood Gas VT 600 cc
[2020-09-11] MEDS: Vancomycin 1,500 MG/265 ML IV.SOLN IVPB SCH ×2 (02:44→12:11)
[2020-09-11 02:57] LABS: Basophils % 0.1 %; Hematocrit 24.6 % (37.5-50.1); Hemoglobin 7.1 g/dL (12.9-16.9); Immature Granulocytes % 0.1 % (0-4); Lymphocytes # 0.4 K/mcL (0.6-4.6); Lymphocytes % 4.5 %; Mean Corpuscular HGB Conc 28.9 g/dL (31.6-35.5); Mean Corpuscular Hemoglobin 26.7 pg (28.0-33.3); Mean Corpuscular Volume 92.5 fL (83.0-100.0); Mean Platelet Volume 12.7 fL (9.4-12.4); Monocytes # 0.1 K/mcL (0.0-1.3); Monocytes % 0.9 %; Neutrophils # 7.6 K/mcL (1.6-8.9); Platelet Count 257 K/mcL (140-400); Red Blood Count 2.66 M/mcL (4.19-5.50); Red Cell Distribution Width 16.4 % (11.5-14.5); Segmented Neutrophils % 94.4 %
[2020-09-11 03:00] LABS: VBG Ionized Calcium 1.21 mmol/L (1.15-1.35)
[2020-09-11 03:41] LABS: Alanine Aminotransferase 13 Units/L (7-52); Albumin 2.6 g/dL (3.5-5.7); Albumin/Globulin Ratio 0.6 (1.1-2.2); Alkaline Phosphatase 117 Units/L (34-104); Aspartate Amino Transferase 16 Units/L (13-39); BUN/Creatinine Ratio 32 (6-26); Bilirubin,Total 0.3 mg/dL (0.3-1.0); Blood Urea Nitrogen 40 mg/dL (8-23); Calcium 8.7 mg/dL (8.6-10.3); Carbon Dioxide 38 mEq/L (23-29); Chloride 97 mEq/L (98-107); Globulin 4.7 g/dL (2.4-3.5); Glucose 192 mg/dL (70-105); Osmolality,Calculated 299 (280-300); Potassium 6.5 mEq/L (3.5-5.1); Sodium 137 mEq/L (136-145); Total Protein 7.3 g/dL (6.4-8.9); eGFR For African Americans > 60 (> 60); eGFR For Non-African Americans 59 (> 60)
[2020-09-11] MEDS ORDERED: Insulin Human Regular 10 UNIT in 0.9 % Sodium Chloride 10 ML IV ONE ×2 (04:22→12:08)
[2020-09-11] MEDS ORDERED: *HR* Dextrose 50 % in Water (Vial) 50 ML VIAL IVP ONE ×2 (04:23→12:08)
[2020-09-11] MEDS: Ipratropium/Albuterol Neb 3 ML IH SCH ×6 (04:32→23:40)
[2020-09-11] MEDS: Albuterol 2.5 MG/3 ML NEBULIZER IH ONE ×2 (04:38)
[2020-09-11] MEDS: Albuterol 2.5 MG/3 ML NEBULIZER IH PRN ×2 (04:38)
[2020-09-11] MEDS ORDERED: Furosemide 20 MG/2 ML VIAL IVP ONE (05:50)
[2020-09-11] MEDS: Dexmedetomidine HCl 400 MCG/100 ML MLS IVC SCH ×3 (06:03→21:07)
[2020-09-11] MEDS: Piperacillin/Tazobactam 3.375 GM in 0.9 % Sodium Chloride Mini Bag 100 ML IVPB SCH ×3 (06:04→20:01)
[2020-09-11 06:43] LABS: VBG Ionized Calcium 1.19 mmol/L (1.15-1.35)
[2020-09-11 07:11] LABS: BUN/Creatinine Ratio 31 (6-26); Blood Urea Nitrogen 40 mg/dL (8-23); Calcium 8.4 mg/dL (8.6-10.3); Carbon Dioxide 36 mEq/L (23-29); Chloride 99 mEq/L (98-107); Glucose 147 mg/dL (70-105); Osmolality,Calculated 296 (280-300); Potassium 6.1 mEq/L (3.5-5.1); Sodium 137 mEq/L (136-145); eGFR For African Americans > 60 (> 60); eGFR For Non-African Americans 56 (> 60)
[2020-09-11] MEDS: Budesonide/Formoterol 160/4.5 1 PUFF INH IH SCH ×2 (07:57→20:13)
[2020-09-11] MEDS: Pantoprazole 40 MG VIAL IVP SCH (08:38)
[2020-09-11] MEDS: MethylPREDNISolone 40 MG/ML VIAL IVP SCH ×3 (08:38→23:29)
[2020-09-11] MEDS: Nystatin Cream 15 GM TUBE TP SCH ×3 (08:51→20:02)
[2020-09-11] MEDS: Heparin 25,000UNIT/250ML 1/2NS 25,000 UNIT/250 ML IV.SOLN IVC SCH (10:36)
[2020-09-11 11:48] LABS: Iron 18 mcg/dL (65-175)
[2020-09-11 11:59] LABS: BUN/Creatinine Ratio 31 (6-26); Blood Urea Nitrogen 40 mg/dL (8-23); Calcium 8.3 mg/dL (8.6-10.3); Carbon Dioxide 35 mEq/L (23-29); Chloride 99 mEq/L (98-107); Glucose 163 mg/dL (70-105); Osmolality,Calculated 295 (280-300); Potassium 6.6 mEq/L (3.5-5.1); Sodium 136 mEq/L (136-145); eGFR For African Americans > 60 (> 60); eGFR For Non-African Americans 57 (> 60)
[2020-09-11 12:06] LABS: Ferritin 52 ng/mL (20-250)
[2020-09-11 12:11] LABS: Folate 10.5 ng/mL (3.0-16.0)
[2020-09-11 12:19] LABS: Creatine Kinase 217 Units/L (30-223)
[2020-09-11] MEDS: Aspirin Enteric Coated 81 MG Tablet PO SCH (13:18)
[2020-09-11] MEDS: Insulin DETEMIR 100 UNIT/ML X5UNITS SUBQ SCH ×2 (13:19→20:01)
[2020-09-11] MEDS: Calcium Gluconate 1gm/50mL 1 GM/50 ML BAG IVPB SCH ×2 (13:20→15:11)
[2020-09-11] MEDS ORDERED: *HR* Heparin 5,000 UNIT/ML VIAL ONE (13:56)
[2020-09-11] MEDS ORDERED: *HR* Heparin 10,000 UNIT/10 ML VIAL IV PRN (14:04)
[2020-09-11] MEDS ORDERED: 0.9 % Sodium Chloride 250 ML IVC PRN (14:04)
[2020-09-11] MEDS ORDERED: Lidocaine/EPI 1:100k 1% 50 ML VIAL ONE (14:05)
[2020-09-11] MEDS ORDERED: Heparin 1,000 UNITS/500 mL 500 ML ONE (14:05)
[2020-09-11] MEDS ORDERED: 0.9 % Sodium Chloride 1,000 ML PRIME SCH (14:15)
[2020-09-11 16:04] LABS: VBG Ionized Calcium 1.26 mmol/L (1.15-1.35)
[2020-09-11 16:22] LABS: Magnesium 2.2 mg/dL (1.6-2.6); Phosphorous 5.3 mg/dL (2.7-4.5)
[2020-09-11 16:30] LABS: BUN/Creatinine Ratio 31 (6-26); Blood Urea Nitrogen 40 mg/dL (8-23); Calcium 8.9 mg/dL (8.6-10.3); Carbon Dioxide 41 mEq/L (23-29); Chloride 97 mEq/L (98-107); Glucose 169 mg/dL (70-105); Osmolality,Calculated 298 (280-300); Sodium 137 mEq/L (136-145); eGFR For African Americans > 60 (> 60); eGFR For Non-African Americans 56 (> 60)
[2020-09-11 16:38] LABS: Hepatitis B Surface Antibody < 3.10 mIU/mL
[2020-09-11 16:48] LABS: Hepatitis B Surface Antigen Nonreactive (Nonreactive)
[2020-09-11 19:23] LABS: BUN/Creatinine Ratio 28 (6-26); Blood Urea Nitrogen 25 mg/dL (8-23); Calcium 8.4 mg/dL (8.6-10.3); Carbon Dioxide 36 mEq/L (23-29); Chloride 100 mEq/L (98-107); Glucose 138 mg/dL (70-105); Osmolality,Calculated 291 (280-300); Potassium 4.7 mEq/L (3.5-5.1); Sodium 137 mEq/L (136-145); eGFR For African Americans > 60 (> 60); eGFR For Non-African Americans > 60 (> 60)
[2020-09-11] MEDS: QUEtiapine Fumarate 100 MG TABLET PO SCH (21:57)
[2020-09-12] MEDS: Vancomycin 1,500 MG/265 ML IV.SOLN IVPB SCH (01:19)
[2020-09-12] MEDS: Heparin 25,000UNIT/250ML 1/2NS 25,000 UNIT/250 ML IV.SOLN IVC SCH (01:20)
[2020-09-12] MEDS: Ipratropium/Albuterol Neb 3 ML IH SCH ×5 (04:00→20:03)
[2020-09-12 04:02] LABS: Hematocrit 23.5 % (37.5-50.1); Hemoglobin 6.7 g/dL (12.9-16.9); Mean Corpuscular HGB Conc 28.5 g/dL (31.6-35.5); Mean Corpuscular Hemoglobin 25.9 pg (28.0-33.3); Mean Corpuscular Volume 90.7 fL (83.0-100.0); Mean Platelet Volume 12.7 fL (9.4-12.4); Platelet Count 248 K/mcL (140-400); Red Blood Count 2.59 M/mcL (4.19-5.50); Red Cell Distribution Width 16.3 % (11.5-14.5); White Blood Count 6.1 K/mcL (4.3-11.1)
[2020-09-12 04:04] LABS: VBG Ionized Calcium 1.16 mmol/L (1.15-1.35)
[2020-09-12 04:17] LABS: Magnesium 1.9 mg/dL (1.6-2.6); Phosphorous 3.9 mg/dL (2.7-4.5)
[2020-09-12 04:19] LABS: ABG Base Excess 10 mEq/L (-2 to 3); ABG HCO3 38 mEq/L (21-27); ABG Oxygen Saturation 91 % (95-98); ABG PCO2 79 mmHg (35-45); ABG PH 7.29 pH Units (7.32-7.45); ABG PO2 72 mmHg (85-104); ABG TCO2 40 mEq/L (20-26)
[2020-09-12] MEDS: Dexmedetomidine HCl 400 MCG/100 ML MLS IVC SCH (04:19)
[2020-09-12 04:20] LABS: BUN/Creatinine Ratio 27 (6-26); Blood Urea Nitrogen 30 mg/dL (8-23); Calcium 8.2 mg/dL (8.6-10.3); Carbon Dioxide 35 mEq/L (23-29); Chloride 99 mEq/L (98-107); Glucose 227 mg/dL (70-105); Osmolality,Calculated 295 (280-300); Potassium 5.3 mEq/L (3.5-5.1); Sodium 136 mEq/L (136-145); eGFR For African Americans > 60 (> 60); eGFR For Non-African Americans > 60 (> 60)
[2020-09-12] MEDS: Piperacillin/Tazobactam 3.375 GM in 0.9 % Sodium Chloride Mini Bag 100 ML IVPB SCH ×3 (05:56→19:53)
[2020-09-12] MEDS: Insulin LISPRO 300 UNITS/3 ML VIAL SUBQ SCH ×4 (05:57→23:28)
[2020-09-12] MEDS ORDERED: 0.9 % Sodium Chloride 250 ML ONE (06:27)
[2020-09-12] MEDS: Budesonide/Formoterol 160/4.5 1 PUFF INH IH SCH ×2 (07:16→20:04)
[2020-09-12] MEDS: Pantoprazole 40 MG VIAL IVP SCH (08:36)
[2020-09-12] MEDS: MethylPREDNISolone 40 MG/ML VIAL IVP SCH (08:37)
[2020-09-12] MEDS: Nystatin Cream 15 GM TUBE TP SCH ×3 (08:37→19:54)
[2020-09-12] MEDS: Aspirin Enteric Coated 81 MG Tablet PO SCH (08:37)
[2020-09-12] MEDS: Insulin DETEMIR 100 UNIT/ML X5UNITS SUBQ SCH ×2 (08:39→19:52)
[2020-09-12] MEDS ORDERED: SODIUM ZIRCONIUM CYCLOSILICATE 5 GM POWD.PACK PO SCH (11:30)
[2020-09-12 11:43] LABS: Hematocrit 26.7 % (37.5-50.1); Hemoglobin 7.7 g/dL (12.9-16.9)
[2020-09-12 12:03] LABS: BUN/Creatinine Ratio 27 (6-26); Blood Urea Nitrogen 31 mg/dL (8-23); Calcium 8.5 mg/dL (8.6-10.3); Carbon Dioxide 37 mEq/L (23-29); Chloride 98 mEq/L (98-107); Glucose 165 mg/dL (70-105); Osmolality,Calculated 294 (280-300); Potassium 4.9 mEq/L (3.5-5.1); Sodium 137 mEq/L (136-145); eGFR For African Americans > 60 (> 60); eGFR For Non-African Americans > 60 (> 60)
[2020-09-12] MEDS ORDERED: Ondansetron 4 MG/2 ML VIAL ONE (13:09)
[2020-09-12] MEDS ORDERED: *HR* Metoprolol 5 MG/5 ML VIAL IVP ONE ×3 (13:12→19:41)
[2020-09-12] MEDS: Ondansetron 4 MG/2 ML VIAL IVP PRN (13:16)
[2020-09-12] MEDS ORDERED: Furosemide 40 MG/4 ML VIAL IVP ONE (13:50)
[2020-09-12] MEDS ORDERED: Furosemide 40 MG/4 ML VIAL ONE (13:56)
[2020-09-12] MEDS ORDERED: *HR* Promethazine 25 MG/ML VIAL IM ONE (14:51)
[2020-09-12 14:53] LABS: ABG Base Excess 9 mEq/L (-2 to 3); ABG HCO3 38 mEq/L (21-27); ABG Oxygen Saturation 91 % (95-98); ABG PCO2 89 mmHg (35-45); ABG PH 7.24 pH Units (7.32-7.45); ABG PO2 75 mmHg (85-104); ABG TCO2 41 mEq/L (20-26)
[2020-09-12 15:02] LABS: Hematocrit 27.6 % (37.5-50.1); Hemoglobin 7.9 g/dL (12.9-16.9)
[2020-09-12 15:03] LABS: VBG Ionized Calcium 1.21 mmol/L (1.15-1.35)
[2020-09-12 15:19] LABS: VBG HCO3 39 mEq/L (21-27); VBG PCO2 88 mmHg (41-51); VBG PH 7.26 pH Units (7.32-7.42); VBG PO2 74 mmHg (25-50)
[2020-09-12 15:34] LABS: Alanine Aminotransferase 13 Units/L (7-52); Albumin 2.8 g/dL (3.5-5.7); Albumin/Globulin Ratio 0.6 (1.1-2.2); Alkaline Phosphatase 94 Units/L (34-104); Amylase 54 Units/L (29-103); Aspartate Amino Transferase 15 Units/L (13-39); BUN/Creatinine Ratio 28 (6-26); Bilirubin,Direct 0.1 mg/dL (0.0-0.2); Bilirubin,Indirect 0.2 mg/dL (0.0-1.0); Bilirubin,Total 0.3 mg/dL (0.3-1.0); Blood Urea Nitrogen 31 mg/dL (8-23); Calcium 8.5 mg/dL (8.6-10.3); Carbon Dioxide 37 mEq/L (23-29); Chloride 99 mEq/L (98-107); Globulin 4.7 g/dL (2.4-3.5); Glucose 91 mg/dL (70-105); Lipase < 3 Units/L (11-82); Magnesium 2.1 mg/dL (1.6-2.6); Osmolality,Calculated 294 (280-300); Potassium 4.8 mEq/L (3.5-5.1); Sodium 139 mEq/L (136-145); Total Protein 7.5 g/dL (6.4-8.9); Troponin I < 0.03 ng/mL (< 0.04); eGFR For African Americans > 60 (> 60); eGFR For Non-African Americans > 60 (> 60)
[2020-09-12] MEDS ORDERED: MethylPREDNISolone 40 MG/ML VIAL IVP SCH (18:00)
[2020-09-12] MEDS: *HR* Heparin 5,000 UNIT/ML VIAL SQ SCH (18:18)
[2020-09-12] MEDS: QUEtiapine Fumarate 100 MG TABLET PO SCH (19:52)
[2020-09-12 21:38] LABS: Hematocrit 27.7 % (37.5-50.1); Hemoglobin 7.8 g/dL (12.9-16.9)
[2020-09-13] MEDS: Ipratropium/Albuterol Neb 3 ML IH SCH ×7 (00:27→23:04)
[2020-09-13 03:38] LABS: VBG Ionized Calcium 1.23 mmol/L (1.15-1.35)
[2020-09-13 03:38] LABS: Red Cell Distribution Width 16.5 % (11.5-14.5)
[2020-09-13 03:39] LABS: Hematocrit 27.1 % (37.5-50.1); Mean Corpuscular HGB Conc 29.5 g/dL (31.6-35.5); Mean Corpuscular Hemoglobin 26.7 pg (28.0-33.3); Mean Corpuscular Volume 90.3 fL (83.0-100.0); Mean Platelet Volume 12.1 fL (9.4-12.4); Platelet Count 286 K/mcL (140-400); White Blood Count 9.7 K/mcL (4.3-11.1)
[2020-09-13 03:50] LABS: Magnesium 1.9 mg/dL (1.6-2.6); Phosphorous 4.2 mg/dL (2.7-4.5)
[2020-09-13 04:33] LABS: BUN/Creatinine Ratio 25 (6-26); Blood Urea Nitrogen 29 mg/dL (8-23); Calcium 8.7 mg/dL (8.6-10.3); Carbon Dioxide 42 mEq/L (23-29); Chloride 98 mEq/L (98-107); Glucose 40 mg/dL (70-105); Osmolality,Calculated 295 (280-300); Potassium 4.1 mEq/L (3.5-5.1); Sodium 141 mEq/L (136-145); eGFR For African Americans > 60 (> 60); eGFR For Non-African Americans > 60 (> 60)
[2020-09-13] MEDS: *HR* Dextrose 50 % in Water (Vial) 50 ML VIAL IVP PRN ×2 (04:37→08:52)
[2020-09-13] MEDS: Insulin LISPRO 300 UNITS/3 ML VIAL SUBQ SCH (05:25)
[2020-09-13] MEDS: *HR* Heparin 5,000 UNIT/ML VIAL SQ SCH ×2 (05:31→18:27)
[2020-09-13] MEDS: Piperacillin/Tazobactam 3.375 GM in 0.9 % Sodium Chloride Mini Bag 100 ML IVPB SCH (05:31)
[2020-09-13] MEDS: Budesonide/Formoterol 160/4.5 1 PUFF INH IH SCH ×2 (08:12→20:13)
[2020-09-13] MEDS ORDERED: MethylPREDNISolone 40 MG/ML VIAL IVP SCH (09:00)
[2020-09-13] MEDS ORDERED: D10% in Water 500 ML IVC SCH ×2 (11:00→15:21)
[2020-09-13] MEDS: Ondansetron 4 MG/2 ML VIAL IVP PRN (11:11)
[2020-09-13] MEDS ORDERED: cefTRIAXone 1,000 MG in Water for inj. (sterile) 10 ML IVP SCH ×2 (15:00→18:03)
[2020-09-13] MEDS ORDERED: 0.9 % Sodium Chloride 250 ML IVC PRN (15:21)
[2020-09-13] MEDS ORDERED: Ondansetron 4 MG/2 ML VIAL IVP PRN (15:21)
[2020-09-13] MEDS ORDERED: Dextrose Gel 15 GM/37.5 ML TUBE PO PRN ×2 (15:21)
[2020-09-13] MEDS ORDERED: Naloxone 0.4 MG/ML INJ IVP PRN (15:21)
[2020-09-13] MEDS ORDERED: *HR* Dextrose 50 % in Water (Vial) 50 ML VIAL IVP PRN (15:21)
[2020-09-13] MEDS ORDERED: D5% in Water 1,000 ML IVC PRN (15:21)
[2020-09-13] MEDS ORDERED: Ipratropium/Albuterol Neb 3 ML ONE (15:28)
[2020-09-13] MEDS: Nystatin Cream 15 GM TUBE TP SCH (21:34)
[2020-09-13] MEDS: QUEtiapine Fumarate 100 MG TABLET PO SCH ×2 (21:35→23:35)
[2020-09-14] MEDS: Ipratropium/Albuterol Neb 3 ML IH SCH ×6 (04:06→23:19)
[2020-09-14] MEDS: *HR* Heparin 5,000 UNIT/ML VIAL SQ SCH ×2 (05:11→17:18)
[2020-09-14 06:17] LABS: VBG Ionized Calcium 1.24 mmol/L (1.15-1.35)
[2020-09-14 06:46] LABS: Hematocrit 24.8 % (37.5-50.1); Hemoglobin 6.9 g/dL (12.9-16.9); Mean Corpuscular HGB Conc 27.8 g/dL (31.6-35.5); Mean Corpuscular Hemoglobin 25.6 pg (28.0-33.3); Mean Corpuscular Volume 91.9 fL (83.0-100.0); Mean Platelet Volume 12.3 fL (9.4-12.4); Platelet Count 202 K/mcL (140-400); Red Cell Distribution Width 16.3 % (11.5-14.5); White Blood Count 6.5 K/mcL (4.3-11.1)
[2020-09-14 07:09] LABS: BUN/Creatinine Ratio 29 (6-26); Blood Urea Nitrogen 28 mg/dL (8-23); Calcium 8.3 mg/dL (8.6-10.3); Carbon Dioxide 42 mEq/L (23-29); Chloride 97 mEq/L (98-107); Glucose 147 mg/dL (70-105); Magnesium 1.5 mg/dL (1.6-2.6); Osmolality,Calculated 298 (280-300); Phosphorous 2.8 mg/dL (2.7-4.5); Potassium 4.1 mEq/L (3.5-5.1); Sodium 140 mEq/L (136-145); eGFR For African Americans > 60 (> 60); eGFR For Non-African Americans > 60 (> 60)
[2020-09-14] MEDS: Budesonide/Formoterol 160/4.5 1 PUFF INH IH SCH ×2 (07:26→19:42)
[2020-09-14] MEDS ORDERED: MethylPREDNISolone 40 MG/ML VIAL IVP SCH (09:00)
[2020-09-14] MEDS: SODIUM ZIRCONIUM CYCLOSILICATE 5 GM POWD.PACK PO SCH (09:18)
[2020-09-14] MEDS: Pantoprazole 40 MG VIAL IVP SCH (09:20)
[2020-09-14] MEDS: Aspirin Enteric Coated 81 MG Tablet PO SCH (09:20)
[2020-09-14] MEDS: Nystatin Cream 15 GM TUBE TP SCH ×3 (10:20→19:49)
[2020-09-14] MEDS ORDERED: cefTRIAXone 1,000 MG in Water for inj. (sterile) 10 ML IVP SCH (15:00)
[2020-09-14 18:33] LABS: Hematocrit 27.2 % (37.5-50.1); Hemoglobin 8.2 g/dL (12.9-16.9)
[2020-09-14] MEDS: Doxycycline 100 MG CAPSULE PO SCH (19:47)
[2020-09-14] MEDS: QUEtiapine Fumarate 100 MG TABLET PO SCH (19:48)
[2020-09-14] MEDS: Cefdinir 300 MG CAPSULE PO SCH (19:50)
[2020-09-15] MEDS: Ipratropium/Albuterol Neb 3 ML IH SCH ×6 (03:23→23:43)
[2020-09-15 05:37] LABS: VBG Ionized Calcium 1.22 mmol/L (1.15-1.35)
[2020-09-15 05:39] LABS: Hematocrit 28.7 % (37.5-50.1); Hemoglobin 8.4 g/dL (12.9-16.9); Mean Corpuscular HGB Conc 29.3 g/dL (31.6-35.5); Mean Corpuscular Hemoglobin 26.2 pg (28.0-33.3); Mean Corpuscular Volume 89.4 fL (83.0-100.0); Mean Platelet Volume 11.9 fL (9.4-12.4); Platelet Count 205 K/mcL (140-400); Red Blood Count 3.21 M/mcL (4.19-5.50); Red Cell Distribution Width 16.5 % (11.5-14.5); White Blood Count 6.8 K/mcL (4.3-11.1)
[2020-09-15 05:58] LABS: BUN/Creatinine Ratio 29 (6-26); Blood Urea Nitrogen 25 mg/dL (8-23); Calcium 8.5 mg/dL (8.6-10.3); Carbon Dioxide 39 mEq/L (23-29); Chloride 96 mEq/L (98-107); Glucose 211 mg/dL (70-105); Magnesium 1.7 mg/dL (1.6-2.6); Osmolality,Calculated 291 (280-300); Phosphorous 3.3 mg/dL (2.7-4.5); Potassium 4.7 mEq/L (3.5-5.1); Sodium 135 mEq/L (136-145); eGFR For African Americans > 60 (> 60); eGFR For Non-African Americans > 60 (> 60)
[2020-09-15] MEDS: Budesonide/Formoterol 160/4.5 1 PUFF INH IH SCH ×2 (07:20→19:56)
[2020-09-15] MEDS: Cefdinir 300 MG CAPSULE PO SCH ×2 (09:01→19:37)
[2020-09-15] MEDS: Doxycycline 100 MG CAPSULE PO SCH ×2 (09:02→19:37)
[2020-09-15] MEDS: Aspirin Enteric Coated 81 MG Tablet PO SCH (09:02)
[2020-09-15] MEDS: SODIUM ZIRCONIUM CYCLOSILICATE 5 GM POWD.PACK PO SCH (09:02)
[2020-09-15] MEDS: predniSONE 20 MG TABLET PO SCH (09:03)
[2020-09-15] MEDS: Pantoprazole 40 MG VIAL IVP SCH (09:07)
[2020-09-15] MEDS: Nystatin Cream 15 GM TUBE TP SCH ×3 (09:22→21:47)
[2020-09-15] MEDS ORDERED: *HR* Metoprolol 5 MG/5 ML VIAL IVP ONE (09:23)
[2020-09-15] MEDS ORDERED: *HR* Propofol 200 MG/20 ML VIAL IVP ONE (12:26)
[2020-09-15] MEDS ORDERED: Lidocaine -MPF 2% 5 ML VIAL SQ ONE (12:26)
[2020-09-15] MEDS: QUEtiapine Fumarate 100 MG TABLET PO SCH (19:37)
[2020-09-16 02:18] LABS: VBG Ionized Calcium 1.25 mmol/L (1.15-1.35)
[2020-09-16 02:22] LABS: Hematocrit 27.8 % (37.5-50.1); Hemoglobin 8.1 g/dL (12.9-16.9); Mean Corpuscular HGB Conc 29.1 g/dL (31.6-35.5); Mean Corpuscular Hemoglobin 26.3 pg (28.0-33.3); Mean Corpuscular Volume 90.3 fL (83.0-100.0); Mean Platelet Volume 11.5 fL (9.4-12.4); Platelet Count 192 K/mcL (140-400); Red Blood Count 3.08 M/mcL (4.19-5.50); Red Cell Distribution Width 16.8 % (11.5-14.5); White Blood Count 7.6 K/mcL (4.3-11.1)
[2020-09-16 02:35] LABS: Magnesium 1.5 mg/dL (1.6-2.6); Phosphorous 3.3 mg/dL (2.7-4.5)
[2020-09-16] MEDS: Ipratropium/Albuterol Neb 3 ML IH SCH ×6 (04:47→23:58)
[2020-09-16] MEDS ORDERED: Isovue-370 500 ML BOTTLE IVP ONE (07:37)
[2020-09-16] MEDS: Doxycycline 100 MG CAPSULE PO SCH ×2 (08:20→20:45)
[2020-09-16] MEDS: Aspirin Enteric Coated 81 MG Tablet PO SCH (08:20)
[2020-09-16] MEDS: predniSONE 20 MG TABLET PO SCH (08:20)
[2020-09-16] MEDS: Pantoprazole 40 MG VIAL IVP SCH (08:21)
[2020-09-16] MEDS: Nystatin Cream 15 GM TUBE TP SCH ×3 (08:21→20:45)
[2020-09-16] MEDS: Cefdinir 300 MG CAPSULE PO SCH ×2 (08:22→20:49)
[2020-09-16] MEDS: Budesonide/Formoterol 160/4.5 1 PUFF INH IH SCH ×2 (08:24→20:22)
[2020-09-16] MEDS: Insulin LISPRO 300 UNITS/3 ML VIAL SUBQ SCH ×2 (12:43→17:16)
[2020-09-16] MEDS ORDERED: Insulin LISPRO 300 UNITS/3 ML VIAL SUBQ SCH (16:30)
[2020-09-16] MEDS: Furosemide 20 MG TABLET PO SCH (17:14)
[2020-09-16] MEDS ORDERED: Albuterol 2.5 MG/3 ML NEBULIZER IH PRN (18:57)
[2020-09-16] MEDS: Insulin DETEMIR 100 UNIT/ML X5UNITS SUBQ SCH (20:45)
[2020-09-16] MEDS: QUEtiapine Fumarate 100 MG TABLET PO SCH (20:45)
[2020-09-17 02:36] LABS: Basophils % 0.1 %; Lymphocytes % 10.2 %
[2020-09-17 02:37] LABS: Eosinophils # 0.1 K/mcL (0.0-0.6); Eosinophils % 0.6 %; Hematocrit 28.6 % (37.5-50.1); Hemoglobin 8.4 g/dL (12.9-16.9); Immature Granulocytes % 0.4 % (0-4); Lymphocytes # 0.9 K/mcL (0.6-4.6); Mean Corpuscular HGB Conc 29.4 g/dL (31.6-35.5); Mean Corpuscular Hemoglobin 26.1 pg (28.0-33.3); Mean Corpuscular Volume 88.8 fL (83.0-100.0); Mean Platelet Volume 12.3 fL (9.4-12.4); Monocytes # 0.3 K/mcL (0.0-1.3); Monocytes % 3.7 %; Platelet Count 186 K/mcL (140-400); Red Blood Count 3.22 M/mcL (4.19-5.50); Red Cell Distribution Width 16.2 % (11.5-14.5); White Blood Count 8.4 K/mcL (4.3-11.1)
[2020-09-17 02:37] LABS: VBG Ionized Calcium 1.26 mmol/L (1.15-1.35)
[2020-09-17 02:38] LABS: Neutrophils # 7.1 K/mcL (1.6-8.9)
[2020-09-17 02:57] LABS: Magnesium 1.5 mg/dL (1.6-2.6); Phosphorous 3.1 mg/dL (2.7-4.5)
[2020-09-17] MEDS: Ipratropium/Albuterol Neb 3 ML IH SCH ×5 (03:44→20:21)
[2020-09-17] MEDS: Furosemide 20 MG TABLET PO SCH ×2 (05:56→17:14)
[2020-09-17] MEDS: Budesonide/Formoterol 160/4.5 1 PUFF INH IH SCH ×2 (07:35→20:21)
[2020-09-17] MEDS: Insulin LISPRO 300 UNITS/3 ML VIAL SUBQ SCH ×3 (08:00→17:17)
[2020-09-17 08:37] LABS: BUN/Creatinine Ratio 28 (6-26); Blood Urea Nitrogen 25 mg/dL (8-23); Calcium 8.9 mg/dL (8.6-10.3); Carbon Dioxide 41 mEq/L (23-29); Chloride 94 mEq/L (98-107); Glucose 266 mg/dL (70-105); Osmolality,Calculated 300 (280-300); Potassium 5.1 mEq/L (3.5-5.1); Sodium 138 mEq/L (136-145); eGFR For African Americans > 60 (> 60); eGFR For Non-African Americans > 60 (> 60)
[2020-09-17] MEDS: Nystatin Cream 15 GM TUBE TP SCH ×3 (08:55→20:05)
[2020-09-17] MEDS: Doxycycline 100 MG CAPSULE PO SCH ×2 (08:57→20:04)
[2020-09-17] MEDS: Aspirin Enteric Coated 81 MG Tablet PO SCH (08:57)
[2020-09-17] MEDS: Cefdinir 300 MG CAPSULE PO SCH ×2 (08:57→20:04)
[2020-09-17] MEDS: predniSONE 20 MG TABLET PO SCH (08:57)
[2020-09-17] MEDS: Pantoprazole 40 MG VIAL IVP SCH (08:57)
[2020-09-17] MEDS ORDERED: Gabapentin 100 MG CAPSULE PO SCH (15:00)
[2020-09-17] MEDS: Furosemide 20 MG/2 ML VIAL IVP ONE (17:14)
[2020-09-17] MEDS: Gabapentin 400 MG CAPSULE PO SCH (20:04)
[2020-09-17] MEDS: QUEtiapine Fumarate 100 MG TABLET PO SCH (20:05)
[2020-09-17] MEDS: Insulin DETEMIR 100 UNIT/ML X5UNITS SUBQ SCH (20:05)
[2020-09-18] MEDS: Ipratropium/Albuterol Neb 3 ML IH SCH ×7 (00:34→23:15)
[2020-09-18 03:17] LABS: Basophils % 0.1 %; Eosinophils # 0.1 K/mcL (0.0-0.6); Eosinophils % 1.2 %; Hematocrit 27.6 % (37.5-50.1); Hemoglobin 8.1 g/dL (12.9-16.9); Immature Granulocytes % 0.5 % (0-4); Lymphocytes # 1.4 K/mcL (0.6-4.6); Lymphocytes % 16.9 %; Mean Corpuscular HGB Conc 29.3 g/dL (31.6-35.5); Mean Corpuscular Volume 88.5 fL (83.0-100.0); Mean Platelet Volume 11.9 fL (9.4-12.4); Monocytes # 0.4 K/mcL (0.0-1.3); Monocytes % 4.8 %; Neutrophils # 6.2 K/mcL (1.6-8.9); Platelet Count 179 K/mcL (140-400); Red Blood Count 3.12 M/mcL (4.19-5.50); Red Cell Distribution Width 16.4 % (11.5-14.5); Segmented Neutrophils % 76.5 %; White Blood Count 8.2 K/mcL (4.3-11.1)
[2020-09-18 03:37] LABS: BUN/Creatinine Ratio 31 (6-26); Blood Urea Nitrogen 30 mg/dL (8-23); Calcium 9.1 mg/dL (8.6-10.3); Carbon Dioxide 44 mEq/L (23-29); Chloride 93 mEq/L (98-107); Glucose 250 mg/dL (70-105); Osmolality,Calculated 301 (280-300); Potassium 4.6 mEq/L (3.5-5.1); Sodium 138 mEq/L (136-145); eGFR For African Americans > 60 (> 60); eGFR For Non-African Americans > 60 (> 60)
[2020-09-18] MEDS: Furosemide 20 MG TABLET PO SCH (05:45)
[2020-09-18] MEDS: Budesonide/Formoterol 160/4.5 1 PUFF INH IH SCH ×2 (07:36→19:36)
[2020-09-18] MEDS: Gabapentin 400 MG CAPSULE PO SCH ×4 (08:29→21:25)
[2020-09-18] MEDS: Aspirin Enteric Coated 81 MG Tablet PO SCH (08:29)
[2020-09-18] MEDS: Insulin LISPRO 300 UNITS/3 ML VIAL SUBQ SCH ×4 (08:29→22:43)
[2020-09-18] MEDS: Pantoprazole 40 MG VIAL IVP SCH (08:29)
[2020-09-18] MEDS: Doxycycline 100 MG CAPSULE PO SCH ×2 (08:29→21:24)
[2020-09-18] MEDS: Cefdinir 300 MG CAPSULE PO SCH ×2 (08:33→21:29)
[2020-09-18] MEDS: predniSONE 20 MG TABLET PO SCH (08:33)
[2020-09-18] MEDS: Nystatin Cream 15 GM TUBE TP SCH ×3 (11:37→21:29)
[2020-09-18] MEDS ORDERED: acetaZOLAMIDE 250 MG TABLET PO ONE (12:45)
[2020-09-18] MEDS: QUEtiapine Fumarate 100 MG TABLET PO SCH (21:24)
[2020-09-18] MEDS: acetaZOLAMIDE 250 MG TABLET PO SCH (21:25)
[2020-09-18] MEDS: Insulin DETEMIR 100 UNIT/ML X5UNITS SUBQ SCH (21:27)
[2020-09-19] MEDS: Ipratropium/Albuterol Neb 3 ML IH SCH ×6 (03:22→22:50)
[2020-09-19 04:41] LABS: Basophils % 0.4 %; Hemoglobin 8.9 g/dL (12.9-16.9)
[2020-09-19 04:43] LABS: Eosinophils # 0.1 K/mcL (0.0-0.6); Eosinophils % 1.3 %; Hematocrit 30.2 % (37.5-50.1); Immature Granulocytes % 1.1 % (0-4); Immature Platelets 7.8 % (1.1-6.1); Lymphocytes # 1.8 K/mcL (0.6-4.6); Lymphocytes % 17.3 %; Mean Corpuscular HGB Conc 29.5 g/dL (31.6-35.5); Mean Corpuscular Hemoglobin 26.1 pg (28.0-33.3); Mean Corpuscular Volume 88.6 fL (83.0-100.0); Monocytes # 0.6 K/mcL (0.0-1.3); Monocytes % 5.6 %; Neutrophils # 7.8 K/mcL (1.6-8.9); Platelet Count 201 K/mcL (140-400); Red Blood Count 3.41 M/mcL (4.19-5.50); Red Cell Distribution Width 16.7 % (11.5-14.5); Segmented Neutrophils % 74.3 %; White Blood Count 10.5 K/mcL (4.3-11.1)
[2020-09-19 04:55] LABS: BUN/Creatinine Ratio 40 (6-26); Blood Urea Nitrogen 46 mg/dL (8-23); Calcium 9.4 mg/dL (8.6-10.3); Carbon Dioxide 39 mEq/L (23-29); Chloride 95 mEq/L (98-107); Glucose 176 mg/dL (70-105); Osmolality,Calculated 302 (280-300); Potassium 4.6 mEq/L (3.5-5.1); Sodium 138 mEq/L (136-145); eGFR For African Americans > 60 (> 60); eGFR For Non-African Americans > 60 (> 60)
[2020-09-19] MEDS: Insulin LISPRO 300 UNITS/3 ML VIAL SUBQ SCH ×4 (08:51→21:38)
[2020-09-19] MEDS: Doxycycline 100 MG CAPSULE PO SCH ×2 (08:51→21:35)
[2020-09-19] MEDS: Gabapentin 400 MG CAPSULE PO SCH ×4 (08:51→21:35)
[2020-09-19] MEDS: Aspirin Enteric Coated 81 MG Tablet PO SCH (08:52)
[2020-09-19] MEDS: acetaZOLAMIDE 250 MG TABLET PO SCH ×3 (08:52→21:36)
[2020-09-19] MEDS: Nystatin Cream 15 GM TUBE TP SCH ×3 (08:52→21:46)
[2020-09-19] MEDS: predniSONE 20 MG TABLET PO SCH (08:52)
[2020-09-19] MEDS: Cefdinir 300 MG CAPSULE PO SCH ×2 (08:56→21:46)
[2020-09-19] MEDS: Budesonide/Formoterol 160/4.5 1 PUFF INH IH SCH ×2 (11:05→19:38)
[2020-09-19] MEDS: Apixaban 5 MG TABLET PO SCH ×2 (12:54→21:36)
[2020-09-19] MEDS: QUEtiapine Fumarate 100 MG TABLET PO SCH (21:35)
[2020-09-19] MEDS: Insulin DETEMIR 100 UNIT/ML X5UNITS SUBQ SCH (21:46)
[2020-09-20] MEDS: Ipratropium/Albuterol Neb 3 ML IH SCH ×4 (03:46→15:34)
[2020-09-20] MEDS: Budesonide/Formoterol 160/4.5 1 PUFF INH IH SCH (07:36)
[2020-09-20] MEDS: acetaZOLAMIDE 250 MG TABLET PO SCH ×2 (08:00→12:59)
[2020-09-20] MEDS: Apixaban 5 MG TABLET PO SCH (08:01)
[2020-09-20] MEDS: Cefdinir 300 MG CAPSULE PO SCH (08:01)
[2020-09-20] MEDS: Doxycycline 100 MG CAPSULE PO SCH (08:01)
[2020-09-20] MEDS: Aspirin Enteric Coated 81 MG Tablet PO SCH (08:01)
[2020-09-20] MEDS: Gabapentin 400 MG CAPSULE PO SCH ×3 (08:01→16:32)
[2020-09-20] MEDS: predniSONE 20 MG TABLET PO SCH (08:01)
[2020-09-20] MEDS: Nystatin Cream 15 GM TUBE TP SCH ×2 (08:02→13:01)
[2020-09-20] MEDS: Insulin LISPRO 300 UNITS/3 ML VIAL SUBQ SCH ×3 (08:04→16:32)
[2020-09-20 13:06] LABS: Adenovirus Not Detected (Not Detect); Bordetella Pertussis Not Detected (Not Detect); Chlamydophila pneumoniae Not Detected (Not Detect); Coronavirus 229E Not Detected (Not Detect); Coronavirus HKU1 Not Detected (Not Detect); Coronavirus NL63 Not Detected (Not Detect); Coronavirus OC43 Not Detected (Not Detect); Human Metapneumovirus Not Detected (Not Detect); Human Rhinovirus/Enterovirus Not Detected (Not Detect); Influenza A Subtype 2009 H1 Not Detected (Not Detect); Influenza B Not Detected (Not Detect); Mycoplasma pneumoniae Not Detected (Not Detect); Parainfluenza Virus 1 Not Detected (Not Detect); Parainfluenza Virus 2 Not Detected (Not Detect); Parainfluenza Virus 3 Not Detected (Not Detect); Parainfluenza Virus 4 Not Detected (Not Detect); Respiratory Syncytial Virus Not Detected (Not Detect); SARS-CoV-2 Not Detected (Not Detect)
[2020-09-20 15:54] VITALS: BP 133/73
== END 2020-09-20 17:54 | DRG 871 ==
LOC: 2NNU 09:53 → EMEROOARM 09:53 → ICNU 16:09 → SUATTDRO 17:04 → 2ANU 09-13 14:23
PROVIDERS: ADMIT Internal Medicine; ATTEND Internal Medicine

== ENCOUNTER 2020-09-23 04:09 | Inpatient (IN) ==
[2020-09-23 05:12] LABS: Hematocrit 32.7 % (37.5-50.1); Nucleated Red Blood Cells 0.5 /100 WBC (0); Red Cell Distribution Width 17.2 % (11.5-14.5)
[2020-09-23 05:14] LABS: Basophils # 0.1 K/mcL (0.0-0.2); Basophils % 0.4 %; Eosinophils # 0.4 K/mcL (0.0-0.6); Hemoglobin 9.2 g/dL (12.9-16.9); Immature Granulocytes % 4.6 % (0-4); Lymphocytes # 3.2 K/mcL (0.6-4.6); Lymphocytes % 18.5 %; Mean Corpuscular HGB Conc 28.1 g/dL (31.6-35.5); Mean Corpuscular Volume 92.4 fL (83.0-100.0); Mean Platelet Volume 12.1 fL (9.4-12.4); Monocytes # 1.1 K/mcL (0.0-1.3); Monocytes % 6.3 %; Neutrophils # 11.8 K/mcL (1.6-8.9); Platelet Count 212 K/mcL (140-400); Red Blood Count 3.54 M/mcL (4.19-5.50); Segmented Neutrophils % 68.2 %; White Blood Count 17.3 K/mcL (4.3-11.1)
[2020-09-23] MEDS ORDERED: Ipratropium/Albuterol Neb 3 ML IH ONE (05:18)
[2020-09-23] MEDS ORDERED: methylPREDNISolone 125 MG/2 ML VIAL IVP ONE ×2 (05:19→12:02)
[2020-09-23 05:33] LABS: BUN/Creatinine Ratio 68 (6-26); Blood Urea Nitrogen 96 mg/dL (8-23); Calcium 8.9 mg/dL (8.6-10.3); Carbon Dioxide 31 mEq/L (23-29); Chloride 101 mEq/L (98-107); Glucose 196 mg/dL (70-105); Osmolality,Calculated 313 (280-300); Potassium 5.2 mEq/L (3.5-5.1); Sodium 134 mEq/L (136-145); eGFR For African Americans > 60 (> 60); eGFR For Non-African Americans 50 (> 60)
[2020-09-23 05:37] LABS: Anisocytosis 1+ (Not Present); Platelet Estimate Normal (Normal)
[2020-09-23 05:40] LABS: Troponin I 0.04 ng/mL (< 0.04)
[2020-09-23 05:54] LABS: ABG Base Excess 2 mEq/L (-2 to 3); ABG HCO3 33 mEq/L (21-27); ABG Oxygen Saturation 99 % (95-98); ABG PCO2 94 mmHg (35-45); ABG PH 7.15 pH Units (7.32-7.45); ABG PO2 190 mmHg (85-104); ABG TCO2 35 mEq/L (20-26)
[2020-09-23 06:21] LABS: Adenovirus Not Detected (Not Detect); Coronavirus 229E Not Detected (Not Detect); Coronavirus HKU1 Not Detected (Not Detect); Coronavirus NL63 Not Detected (Not Detect); Coronavirus OC43 Not Detected (Not Detect); Human Metapneumovirus Not Detected (Not Detect); Human Rhinovirus/Enterovirus Not Detected (Not Detect); Influenza A Subtype 2009 H1 Not Detected (Not Detect); Influenza B Not Detected (Not Detect); SARS-CoV-2 Not Detected (Not Detect)
[2020-09-23 06:22] LABS: Bordetella Pertussis Not Detected (Not Detect); Chlamydophila pneumoniae Not Detected (Not Detect); Mycoplasma pneumoniae Not Detected (Not Detect); Parainfluenza Virus 1 Not Detected (Not Detect); Parainfluenza Virus 2 Not Detected (Not Detect); Parainfluenza Virus 3 Not Detected (Not Detect); Parainfluenza Virus 4 Not Detected (Not Detect); Respiratory Syncytial Virus Not Detected (Not Detect)
[2020-09-23] MEDS ORDERED: Piperacillin/Tazobactam 3.375 GM in 0.9 % Sodium Chloride Mini Bag 100 ML IVPB ONE (06:27)
[2020-09-23 06:29] LABS: ABG Base Excess 2 mEq/L (-2 to 3); ABG HCO3 32 mEq/L (21-27); ABG Oxygen Saturation 94 % (95-98); ABG PCO2 86 mmHg (35-45); ABG PH 7.18 pH Units (7.32-7.45); ABG PO2 94 mmHg (85-104); ABG TCO2 34 mEq/L (20-26); Blood Gas VT 450 cc
[2020-09-23] MEDS ORDERED: Vancomycin (wt based) 1,000 MG VIAL IV ONE (06:30)
[2020-09-23] MEDS ORDERED: Vancomycin 1,750 MG/517.5 ML IV.SOLN IVPB ONE (06:32)
[2020-09-23] MEDS ORDERED: Furosemide 40 MG/4 ML VIAL IVP ONE (06:50)
[2020-09-23] MEDS ORDERED: Furosemide 20 MG/2 ML VIAL IVP ONE (07:57)
[2020-09-23 08:56] LABS: ABG Base Excess 0 mEq/L (-2 to 3); ABG HCO3 30 mEq/L (21-27); ABG Oxygen Saturation 96 % (95-98); ABG PCO2 80 mmHg (35-45); ABG PH 7.18 pH Units (7.32-7.45); ABG PO2 107 mmHg (85-104); ABG TCO2 33 mEq/L (20-26); Blood Gas VT 500 cc
[2020-09-23] MEDS ORDERED: *HR* HYDROcodone/Acet 5/325 mg TABLET PO PRN (12:02)
[2020-09-23] MEDS ORDERED: Acetaminophen 325 MG TABLET PO PRN (12:02)
[2020-09-23] MEDS ORDERED: Naloxone 0.4 MG/ML INJ IVP PRN (12:02)
[2020-09-23] MEDS ORDERED: Ipratropium/Albuterol Neb 3 ML IH PRN (12:08)
[2020-09-23] MEDS ORDERED: Vancomycin 1,750 MG in 0.9 % Sodium Chloride 250 ML IVPB SCH (13:00)
[2020-09-23] MEDS ORDERED: Perflutren Lipid Microsphere 1.3 ML in 0.9 % Sodium Chloride 8.7 ML IVP PRN (13:20)
[2020-09-23 15:22] LABS: ABG Base Excess -1 mEq/L (-2 to 3); ABG HCO3 29 mEq/L (21-27); ABG Oxygen Saturation 90 % (95-98); ABG PCO2 77 mmHg (35-45); ABG PH 7.19 pH Units (7.32-7.45); ABG PO2 75 mmHg (85-104); ABG TCO2 31 mEq/L (20-26); Blood Gas Modality AVAPS; Blood Gas VT 500 cc
[2020-09-23 16:45] LABS: BUN/Creatinine Ratio 74 (6-26); Blood Urea Nitrogen 99 mg/dL (8-23); Calcium 9.1 mg/dL (8.6-10.3); Carbon Dioxide 27 mEq/L (23-29); Chloride 101 mEq/L (98-107); Glucose 374 mg/dL (70-105); Osmolality,Calculated 318 (280-300); Potassium 6.1 mEq/L (3.5-5.1); Sodium 131 mEq/L (136-145); eGFR For African Americans > 60 (> 60); eGFR For Non-African Americans 53 (> 60)
[2020-09-23] MEDS: Piperacillin/Tazobactam 3.375 GM in 0.9 % Sodium Chloride Mini Bag 100 ML IVPB SCH ×2 (17:20→23:39)
[2020-09-23] MEDS ORDERED: MethylPREDNISolone 40 MG/ML VIAL IVP ONE (18:00)
[2020-09-23] MEDS: Insulin LISPRO 300 UNITS/3 ML VIAL SUBQ SCH ×2 (18:10→23:57)
[2020-09-23] MEDS: Vancomycin 1,750 MG/517.5 ML IV.SOLN IVPB SCH (19:58)
[2020-09-23] MEDS: Apixaban 5 MG TABLET PO SCH (19:59)
[2020-09-23] MEDS ORDERED: Insulin DETEMIR 100 UNIT/ML X5UNITS SUBQ SCH (21:00)
[2020-09-23] MEDS ORDERED: QUEtiapine Fumarate 100 MG TABLET PO SCH (21:00)
[2020-09-23 21:06] LABS: VBG Ionized Calcium 0.89 mmol/L (1.15-1.35)
[2020-09-23] MEDS: Budesonide/Formoterol 160/4.5 1 PUFF INH IH SCH (21:20)
[2020-09-23 21:31] LABS: BUN/Creatinine Ratio 81 (6-26); Blood Urea Nitrogen 68 mg/dL (8-23); Calcium 5.9 mg/dL (8.6-10.3); Carbon Dioxide 18 mEq/L (23-29); Chloride 114 mEq/L (98-107); Glucose 230 mg/dL (70-105); Magnesium 1.3 mg/dL (1.6-2.6); Osmolality,Calculated 313 (280-300); Potassium 3.5 mEq/L (3.5-5.1); Sodium 138 mEq/L (136-145); eGFR For African Americans > 60 (> 60); eGFR For Non-African Americans > 60 (> 60)
[2020-09-23] MEDS ORDERED: Calcium Gluconate 1gm/50mL 1 GM/50 ML BAG IVPB PRN (21:34)
[2020-09-24 04:46] LABS: VBG Ionized Calcium 1.22 mmol/L (1.15-1.35)
[2020-09-24 04:47] LABS: Hemoglobin 9.8 g/dL (12.9-16.9); Nucleated Red Blood Cells 0.2 /100 WBC (0)
[2020-09-24 04:48] LABS: Basophils % 0.2 %; Hematocrit 33.1 % (37.5-50.1); Immature Granulocytes % 4.2 % (0-4); Lymphocytes # 0.8 K/mcL (0.6-4.6); Lymphocytes % 6.3 %; Mean Corpuscular HGB Conc 29.6 g/dL (31.6-35.5); Mean Corpuscular Hemoglobin 26.4 pg (28.0-33.3); Mean Corpuscular Volume 89.2 fL (83.0-100.0); Mean Platelet Volume 12.3 fL (9.4-12.4); Monocytes # 0.4 K/mcL (0.0-1.3); Monocytes % 3.4 %; Neutrophils # 10.4 K/mcL (1.6-8.9); Platelet Count 191 K/mcL (140-400); Red Blood Count 3.71 M/mcL (4.19-5.50); Red Cell Distribution Width 16.8 % (11.5-14.5); Segmented Neutrophils % 85.9 %; White Blood Count 12.1 K/mcL (4.3-11.1)
[2020-09-24 04:52] LABS: Platelet Estimate Normal (Normal)
[2020-09-24 05:15] LABS: BUN/Creatinine Ratio 68 (6-26); Blood Urea Nitrogen 81 mg/dL (8-23); Calcium 9.2 mg/dL (8.6-10.3); Carbon Dioxide 33 mEq/L (23-29); Chloride 102 mEq/L (98-107); Glucose 257 mg/dL (70-105); Osmolality,Calculated 321 (280-300); Potassium 5.1 mEq/L (3.5-5.1); Sodium 139 mEq/L (136-145); eGFR For African Americans > 60 (> 60); eGFR For Non-African Americans > 60 (> 60)
[2020-09-24] MEDS: Vancomycin 1,750 MG/517.5 ML IV.SOLN IVPB SCH ×2 (05:41→19:30)
[2020-09-24] MEDS: Insulin LISPRO 300 UNITS/3 ML VIAL SUBQ SCH ×3 (05:41→20:54)
[2020-09-24] MEDS: Budesonide/Formoterol 160/4.5 1 PUFF INH IH SCH ×2 (07:47→20:11)
[2020-09-24] MEDS: Apixaban 5 MG TABLET PO SCH ×2 (07:56→20:53)
[2020-09-24] MEDS: Piperacillin/Tazobactam 3.375 GM in 0.9 % Sodium Chloride Mini Bag 100 ML IVPB SCH ×2 (07:56→16:30)
[2020-09-24] MEDS ORDERED: D5% in Water 1,000 ML IVC PRN ×2 (08:11→13:43)
[2020-09-24] MEDS ORDERED: *HR* Dextrose 50 % in Water (Vial) 50 ML VIAL IVP PRN ×2 (08:11→13:43)
[2020-09-24] MEDS ORDERED: Dextrose Gel 15 GM/37.5 ML TUBE PO PRN ×4 (08:11→13:43)
[2020-09-24] MEDS ORDERED: Aspirin Enteric Coated 81 MG Tablet PO SCH (09:00)
[2020-09-24] MEDS ORDERED: Insulin LISPRO 300 UNITS/3 ML VIAL SUBQ SCH ×2 (11:30→21:00)
[2020-09-24 12:16] LABS: Acinetobacter baumannii by PCR Not Detected (Not Detect); Candida albicans by PCR Not Detected (Not Detect); Candida glabrata by PCR Not Detected (Not Detect); Candida krusei by PCR Not Detected (Not Detect); Candida parapsilosis by PCR Not Detected (Not Detect); Candida tropicalis by PCR Not Detected (Not Detect); Enterobacter cloacae Cmplx PCR Not Detected (Not Detect); Enterobacteriaceae by PCR Not Detected (Not Detect); Enterococcus by PCR Not Detected (Not Detect); Escherichia coli by PCR Not Detected (Not Detect); Klebsiella oxytoca by PCR Not Detected (Not Detect); Klebsiella pneumoniae by PCR Not Detected (Not Detect); Proteus by PCR Not Detected (Not Detect); Pseudomonas aeruginosa by PCR Not Detected (Not Detect); Serratia marcescens by PCR Not Detected (Not Detect); Staphylococcus aureus by PCR Not Detected (Not Detect); Staphylococcus by PCR DETECTED (Not Detect); Streptococcus agalactiae(B)PCR Not Detected (Not Detect); Streptococcus by PCR Not Detected (Not Detect); Streptococcus pneumoniae PCR Not Detected (Not Detect); Streptococcus pyogenes (A) PCR Not Detected (Not Detect); mecA Methicillin-Resist Gene DETECTED (Not Detect)
[2020-09-24] MEDS ORDERED: NON-FORMULARY MEDICATION 1 EACH EACH (Sildenafil Citrate [Viagra] 100 MG Tablet) PO PRN (13:43)
[2020-09-24] MEDS ORDERED: Ipratropium/Albuterol Neb 3 ML IH PRN (13:43)
[2020-09-24] MEDS ORDERED: Perflutren Lipid Microsphere 1.3 ML in 0.9 % Sodium Chloride 8.7 ML IVP PRN (13:43)
[2020-09-24] MEDS ORDERED: Calcium Gluconate 1gm/50mL 1 GM/50 ML BAG IVPB PRN (13:43)
[2020-09-24] MEDS ORDERED: Naloxone 0.4 MG/ML INJ IVP PRN (13:43)
[2020-09-24] MEDS ORDERED: Vancomycin 1,750 MG/517.5 ML IV.SOLN IVPB SCH (19:00)
[2020-09-24] MEDS: QUEtiapine Fumarate 100 MG TABLET PO SCH (20:53)
[2020-09-24] MEDS: *HR* HYDROcodone/Acet 5/325 mg TABLET PO PRN (20:53)
[2020-09-24] MEDS: Insulin DETEMIR 100 UNIT/ML X5UNITS SUBQ SCH (20:54)
[2020-09-24] MEDS: Nicotine 14 MG PATCH.TD24 TD SCH (22:31)
[2020-09-24] MEDS: Acetaminophen 325 MG TABLET PO PRN (23:57)
[2020-09-25] MEDS: Piperacillin/Tazobactam 3.375 GM in 0.9 % Sodium Chloride Mini Bag 100 ML IVPB SCH ×4 (00:13→23:39)
[2020-09-25] MEDS ORDERED: *HR* Metoprolol 5 MG/5 ML VIAL IVP ONE (04:04)
[2020-09-25] MEDS: *HR* HYDROcodone/Acet 5/325 mg TABLET PO PRN ×2 (04:11→21:05)
[2020-09-25 06:32] LABS: Vancomycin,Trough 16 mcg/mL (5-10)
[2020-09-25 07:11] LABS: BUN/Creatinine Ratio 71 (6-26); Blood Urea Nitrogen 62 mg/dL (8-23); eGFR For African Americans > 60 (> 60); eGFR For Non-African Americans > 60 (> 60)
[2020-09-25] MEDS: Budesonide/Formoterol 160/4.5 1 PUFF INH IH SCH ×2 (07:42→20:31)
[2020-09-25] MEDS: Insulin LISPRO 300 UNITS/3 ML VIAL SUBQ SCH ×4 (08:12→20:54)
[2020-09-25 09:00] LABS: ABG Base Excess 6 mEq/L (-2 to 3); ABG Chloride 103 mEq/L (98-107); ABG Glucose 124 mg/dL (60-95); ABG HCO3 34 mEq/L (21-27); ABG Ionized Calcium 1.34 mmol/L (1.15-1.35); ABG Oxygen Saturation 94 % (95-98); ABG PCO2 69 mmHg (35-45); ABG PO2 82 mmHg (85-104); ABG TCO2 36 mEq/L (20-26)
[2020-09-25 10:35] LABS: Basophils % 0.3 %; Eosinophils # 0.2 K/mcL (0.0-0.6); Eosinophils % 1.5 %; Hematocrit 32.1 % (37.5-50.1); Hemoglobin 9.4 g/dL (12.9-16.9); Immature Granulocytes % 1.8 % (0-4); Lymphocytes # 2.9 K/mcL (0.6-4.6); Lymphocytes % 20.5 %; Mean Corpuscular HGB Conc 29.3 g/dL (31.6-35.5); Mean Corpuscular Hemoglobin 26.3 pg (28.0-33.3); Mean Corpuscular Volume 89.9 fL (83.0-100.0); Mean Platelet Volume 11.7 fL (9.4-12.4); Monocytes # 0.9 K/mcL (0.0-1.3); Monocytes % 6.4 %; Neutrophils # 9.8 K/mcL (1.6-8.9); Nucleated Red Blood Cells 0.4 /100 WBC (0); Platelet Count 174 K/mcL (140-400); Red Blood Count 3.57 M/mcL (4.19-5.50); Red Cell Distribution Width 17.2 % (11.5-14.5); Segmented Neutrophils % 69.5 %; White Blood Count 14.1 K/mcL (4.3-11.1)
[2020-09-25 11:14] LABS: BUN/Creatinine Ratio 67 (6-26); Blood Urea Nitrogen 58 mg/dL (8-23); Calcium 9.2 mg/dL (8.6-10.3); Carbon Dioxide 26 mEq/L (23-29); Chloride 104 mEq/L (98-107); Glucose 118 mg/dL (70-105); Magnesium 1.9 mg/dL (1.6-2.6); Osmolality,Calculated 301 (280-300); Phosphorous 2.3 mg/dL (2.7-4.5); Potassium 5.5 mEq/L (3.5-5.1); Sodium 137 mEq/L (136-145); eGFR For African Americans > 60 (> 60); eGFR For Non-African Americans > 60 (> 60)
[2020-09-25] MEDS: Apixaban 5 MG TABLET PO SCH ×2 (11:24→21:00)
[2020-09-25] MEDS: Nicotine 14 MG PATCH.TD24 TD SCH (11:25)
[2020-09-25] MEDS: Aspirin Enteric Coated 81 MG Tablet PO SCH (11:25)
[2020-09-25] MEDS: BuPROPion SR (12 HR) 150 MG TABLET PO SCH (11:25)
[2020-09-25] MEDS: Vancomycin 1,750 MG/517.5 ML IV.SOLN IVPB SCH (11:25)
[2020-09-25] MEDS: QUEtiapine Fumarate 100 MG TABLET PO SCH (21:00)
[2020-09-25] MEDS: Insulin DETEMIR 100 UNIT/ML X5UNITS SUBQ SCH (21:00)
[2020-09-25] MEDS: Furosemide 20 MG/2 ML VIAL IVP SCH (23:39)
[2020-09-25] MEDS: Acetaminophen 325 MG TABLET PO PRN (23:50)
[2020-09-26 02:57] LABS: Monocytes % 5.7 %; Nucleated Red Blood Cells 0.2 /100 WBC (0)
[2020-09-26 02:59] LABS: Basophils # 0.1 K/mcL (0.0-0.2); Basophils % 0.4 %; Eosinophils % 2.4 %; Hematocrit 31.7 % (37.5-50.1); Hemoglobin 9.2 g/dL (12.9-16.9); Immature Granulocytes % 1.7 % (0-4); Immature Platelets 6.7 % (1.1-6.1); Lymphocytes # 2.5 K/mcL (0.6-4.6); Lymphocytes % 17.4 %; Mean Corpuscular Hemoglobin 25.9 pg (28.0-33.3); Mean Corpuscular Volume 89.3 fL (83.0-100.0); Mean Platelet Volume 13.2 fL (9.4-12.4); Monocytes # 0.8 K/mcL (0.0-1.3); Neutrophils # 10.5 K/mcL (1.6-8.9); Platelet Count 156 K/mcL (140-400); Red Blood Count 3.55 M/mcL (4.19-5.50); Red Cell Distribution Width 17.1 % (11.5-14.5); Segmented Neutrophils % 72.4 %; White Blood Count 14.5 K/mcL (4.3-11.1)
[2020-09-26 03:09] LABS: Eosinophils # 0.4 K/mcL (0.0-0.6)
[2020-09-26 03:19] LABS: % Iron Saturation 9 % (20-55); Alanine Aminotransferase 19 Units/L (7-52); Albumin 2.9 g/dL (3.5-5.7); Alkaline Phosphatase 71 Units/L (34-104); Aspartate Amino Transferase 18 Units/L (13-39); BUN/Creatinine Ratio 52 (6-26); Bilirubin,Total 0.4 mg/dL (0.3-1.0); Blood Urea Nitrogen 46 mg/dL (8-23); Calcium 8.9 mg/dL (8.6-10.3); Carbon Dioxide 32 mEq/L (23-29); Chloride 102 mEq/L (98-107); Glucose 102 mg/dL (70-105); Iron 27 mcg/dL (65-175); Magnesium 1.6 mg/dL (1.6-2.6); Osmolality,Calculated 300 (280-300); Phosphorous 2.6 mg/dL (2.7-4.5); Potassium 4.7 mEq/L (3.5-5.1); Sodium 139 mEq/L (136-145); Total Protein 5.9 g/dL (6.4-8.9); Transferrin 225 mg/dL (203-362); eGFR For African Americans > 60 (> 60); eGFR For Non-African Americans > 60 (> 60)
[2020-09-26 03:30] LABS: Ferritin 37 ng/mL (20-250)
[2020-09-26 03:36] LABS: Folate 6.5 ng/mL (3.0-16.0)
[2020-09-26] MEDS: Budesonide/Formoterol 160/4.5 1 PUFF INH IH SCH ×2 (07:42→19:51)
[2020-09-26] MEDS ORDERED: carvediloL 6.25 MG TABLET PO SCH (08:00)
[2020-09-26] MEDS: Vancomycin 1,750 MG/517.5 ML IV.SOLN IVPB SCH (08:08)
[2020-09-26] MEDS: Furosemide 20 MG/2 ML VIAL IVP SCH (08:09)
[2020-09-26] MEDS: Nicotine 14 MG PATCH.TD24 TD SCH (08:09)
[2020-09-26] MEDS: BuPROPion SR (12 HR) 150 MG TABLET PO SCH (08:10)
[2020-09-26] MEDS: Aspirin Enteric Coated 81 MG Tablet PO SCH (08:10)
[2020-09-26] MEDS: Apixaban 5 MG TABLET PO SCH ×2 (08:10→20:26)
[2020-09-26] MEDS: Insulin LISPRO 300 UNITS/3 ML VIAL SUBQ SCH ×4 (08:11→23:14)
[2020-09-26] MEDS: Piperacillin/Tazobactam 3.375 GM in 0.9 % Sodium Chloride Mini Bag 100 ML IVPB SCH (08:11)
[2020-09-26] MEDS: *HR* HYDROcodone/Acet 5/325 mg TABLET PO PRN ×2 (11:33→17:49)
[2020-09-26] MEDS: lisinopriL 5 MG TABLET PO SCH (12:59)
[2020-09-26] MEDS ORDERED: Iron Sucrose Complex 400 MG in 0.9 % Sodium Chloride 250 ML IVPB ONE (15:06)
[2020-09-26] MEDS ORDERED: Azithromycin 250 MG TABLET PO SCH (15:15)
[2020-09-26 16:25] LABS: Estimated Average Glucose 194 mg/dl; Hemoglobin A1C 8.4 %
[2020-09-26] MEDS: cefTRIAXone 1,000 MG in 0.9 % Sodium Chloride Mini Bag 100 ML IVPB SCH (16:30)
[2020-09-26] MEDS: predniSONE 20 MG TABLET PO SCH (16:30)
[2020-09-26] MEDS: QUEtiapine Fumarate 100 MG TABLET PO SCH (20:24)
[2020-09-26] MEDS: Metoprolol XL (24 HR) Succ 50 MG TAB.ER.24H PO SCH (20:24)
[2020-09-26] MEDS ORDERED: Insulin DETEMIR 100 UNIT/ML X5UNITS SUBQ SCH (21:00)
[2020-09-27] MEDS: *HR* HYDROcodone/Acet 5/325 mg TABLET PO PRN ×2 (00:41→09:23)
[2020-09-27 06:17] LABS: Basophils % 0.1 %; Eosinophils % 0.2 %; Hematocrit 31.1 % (37.5-50.1); Hemoglobin 9.7 g/dL (12.9-16.9); Lymphocytes # 1.6 K/mcL (0.6-4.6); Lymphocytes % 10.7 %; Mean Corpuscular HGB Conc 31.2 g/dL (31.6-35.5); Mean Corpuscular Hemoglobin 26.6 pg (28.0-33.3); Mean Corpuscular Volume 85.2 fL (83.0-100.0); Mean Platelet Volume 12.6 fL (9.4-12.4); Monocytes # 0.6 K/mcL (0.0-1.3); Monocytes % 4.1 %; Neutrophils # 12.3 K/mcL (1.6-8.9); Platelet Count 190 K/mcL (140-400); Red Blood Count 3.65 M/mcL (4.19-5.50); Segmented Neutrophils % 83.9 %; White Blood Count 14.7 K/mcL (4.3-11.1)
[2020-09-27 06:34] LABS: Alanine Aminotransferase 17 Units/L (7-52); Albumin 3.1 g/dL (3.5-5.7); Albumin/Globulin Ratio 0.9 (1.1-2.2); Alkaline Phosphatase 80 Units/L (34-104); Aspartate Amino Transferase 11 Units/L (13-39); BUN/Creatinine Ratio 46 (6-26); Bilirubin,Total 0.4 mg/dL (0.3-1.0); Blood Urea Nitrogen 39 mg/dL (8-23); Calcium 8.9 mg/dL (8.6-10.3); Carbon Dioxide 35 mEq/L (23-29); Chloride 99 mEq/L (98-107); Globulin 3.3 g/dL (2.4-3.5); Glucose 208 mg/dL (70-105); Magnesium 1.8 mg/dL (1.6-2.6); Osmolality,Calculated 299 (280-300); Phosphorous 3.5 mg/dL (2.7-4.5); Potassium 4.4 mEq/L (3.5-5.1); Sodium 137 mEq/L (136-145); Total Protein 6.4 g/dL (6.4-8.9); eGFR For African Americans > 60 (> 60); eGFR For Non-African Americans > 60 (> 60)
[2020-09-27] MEDS: Budesonide/Formoterol 160/4.5 1 PUFF INH IH SCH (08:07)
[2020-09-27] MEDS: Insulin LISPRO 300 UNITS/3 ML VIAL SUBQ SCH ×2 (08:12→11:44)
[2020-09-27] MEDS: Apixaban 5 MG TABLET PO SCH (08:12)
[2020-09-27] MEDS: lisinopriL 5 MG TABLET PO SCH (08:13)
[2020-09-27] MEDS: Aspirin Enteric Coated 81 MG Tablet PO SCH (08:13)
[2020-09-27] MEDS: predniSONE 20 MG TABLET PO SCH (08:14)
[2020-09-27] MEDS: cefTRIAXone 1,000 MG in 0.9 % Sodium Chloride Mini Bag 100 ML IVPB SCH (08:14)
[2020-09-27] MEDS: Metoprolol XL (24 HR) Succ 50 MG TAB.ER.24H PO SCH (08:15)
[2020-09-27] MEDS: BuPROPion SR (12 HR) 150 MG TABLET PO SCH (08:15)
[2020-09-27] MEDS ORDERED: Multivit/Ca/Min/Fe/FA 1 TAB TABLET PO SCH (09:00)
[2020-09-27] MEDS ORDERED: Furosemide 20 MG TABLET PO SCH (09:00)
[2020-09-27] MEDS ORDERED: cefTRIAXone 1,000 MG in 0.9 % Sodium Chloride Mini Bag 100 ML IVPB SCH (09:00)
[2020-09-27] MEDS ORDERED: Finasteride 5 MG TABLET PO SCH (09:00)
[2020-09-27] MEDS: Nicotine 14 MG PATCH.TD24 TD SCH (09:04)
[2020-09-28 15:08] VITALS: BP 150/70
== END 2020-09-27 17:35 | disposition home health service (06) | DRG 291 ==
LOC: EMEROOARM 04:09 → SUATTDRO 08:14 → ICNU 08:14 → 3ANU 09-24 16:59
PROVIDERS: ADMIT Family Medicine; ATTEND Internal Medicine

== ENCOUNTER 2020-11-17 16:20 | Inpatient (IN) ==
[2020-11-17] MEDS ORDERED: cefTRIAXone 1,000 MG in Water for inj. (sterile) 10 ML IVP ONE (16:27)
[2020-11-17] MEDS ORDERED: methylPREDNISolone 125 MG/2 ML VIAL IVP ONE (16:27)
[2020-11-17] MEDS ORDERED: Azithromycin 500 MG in 0.9 % Sodium Chloride 250 ML IVPB ONE (16:27)
[2020-11-17] MEDS ORDERED: Ipratropium/Albuterol Neb 3 ML IH ONE (16:27)
[2020-11-17 16:46] LABS: VBG HCO3 38 mEq/L (21-27); VBG PCO2 68 mmHg (41-51); VBG PH 7.35 pH Units (7.32-7.42); VBG PO2 135 mmHg (25-50)
[2020-11-17 16:47] LABS: Mean Corpuscular Volume 89.8 fL (83.0-100.0)
[2020-11-17 16:49] LABS: Basophils # 0.1 K/mcL (0.0-0.2); Basophils % 0.7 %; Eosinophils # 0.5 K/mcL (0.0-0.6); Eosinophils % 4.8 %; Hematocrit 32.7 % (37.5-50.1); Hemoglobin 9.5 g/dL (12.9-16.9); Immature Granulocytes % 0.5 % (0-4); Lymphocytes % 16.3 %; Mean Corpuscular HGB Conc 29.1 g/dL (31.6-35.5); Mean Corpuscular Hemoglobin 26.1 pg (28.0-33.3); Mean Platelet Volume 12.2 fL (9.4-12.4); Monocytes # 0.7 K/mcL (0.0-1.3); Monocytes % 7.2 %; Neutrophils # 6.7 K/mcL (1.6-8.9); Platelet Count 257 K/mcL (140-400); Red Blood Count 3.64 M/mcL (4.19-5.50); Red Cell Distribution Width 16.8 % (11.5-14.5); Segmented Neutrophils % 70.5 %; White Blood Count 9.5 K/mcL (4.3-11.1)
[2020-11-17 16:51] LABS: Lymphocytes # 1.6 K/mcL (0.6-4.6)
[2020-11-17 16:52] LABS: Hypochromasia Present (Not Present); Platelet Estimate Normal (Normal)
[2020-11-17 17:26] LABS: BUN/Creatinine Ratio 17 (6-26); Blood Urea Nitrogen 21 mg/dL (8-23); Calcium 8.8 mg/dL (8.6-10.3); Carbon Dioxide 34 mEq/L (23-29); Chloride 98 mEq/L (98-107); Glucose 219 mg/dL (70-105); Osmolality,Calculated 296 (280-300); Potassium 4.5 mEq/L (3.5-5.1); Sodium 138 mEq/L (136-145); Troponin I < 0.03 ng/mL (< 0.04); eGFR For African Americans > 60 (> 60); eGFR For Non-African Americans 57 (> 60)
[2020-11-17] MEDS ORDERED: Furosemide 40 MG/4 ML VIAL IVP ONE (17:43)
[2020-11-17] MEDS ORDERED: Ondansetron ODT 4 MG TAB.RAPDIS SL PRN (17:44)
[2020-11-17] MEDS ORDERED: Melatonin 3 MG TABLET PO PRN (17:44)
[2020-11-17] MEDS ORDERED: Mag Hydrox/Al Hydrox/Simeth 30 ML UDC PO PRN (17:44)
[2020-11-17] MEDS ORDERED: Naloxone 0.4 MG/ML INJ IVP PRN (17:44)
[2020-11-17] MEDS ORDERED: D5% in Water 1,000 ML IVC PRN (17:49)
[2020-11-17] MEDS ORDERED: *HR* Dextrose 50 % in Water (Vial) 50 ML VIAL IVP PRN (17:49)
[2020-11-17] MEDS ORDERED: Dextrose Gel 15 GM/37.5 ML TUBE PO PRN ×2 (17:49)
[2020-11-17] MEDS ORDERED: Albuterol 2.5 MG/3 ML NEBULIZER IH PRN (17:51)
[2020-11-17] MEDS ORDERED: Isovue-370 500 ML BOTTLE IVP ONE (18:49)
[2020-11-17 19:53] LABS: Adenovirus Not Detected (Not Detect); Bordetella Pertussis Not Detected (Not Detect); Chlamydophila pneumoniae Not Detected (Not Detect); Coronavirus 229E Not Detected (Not Detect); Coronavirus HKU1 Not Detected (Not Detect); Coronavirus NL63 Not Detected (Not Detect); Coronavirus OC43 Not Detected (Not Detect); Human Metapneumovirus Not Detected (Not Detect); Human Rhinovirus/Enterovirus Not Detected (Not Detect); Influenza A Subtype 2009 H1 Not Detected (Not Detect); Influenza B Not Detected (Not Detect); Mycoplasma pneumoniae Not Detected (Not Detect); Parainfluenza Virus 1 Not Detected (Not Detect); Parainfluenza Virus 2 Not Detected (Not Detect); Parainfluenza Virus 3 Not Detected (Not Detect); Parainfluenza Virus 4 Not Detected (Not Detect); Respiratory Syncytial Virus Not Detected (Not Detect); SARS-CoV-2 Not Detected (Not Detect)
[2020-11-17] MEDS: Ipratropium/Albuterol Neb 3 ML IH SCH ×2 (22:45)
[2020-11-18] MEDS: Insulin LISPRO 300 UNITS/3 ML VIAL SUBQ SCH ×5 (01:28→20:47)
[2020-11-18] MEDS: Furosemide 40 MG/4 ML VIAL IVP SCH ×3 (01:28→19:38)
[2020-11-18] MEDS: Apixaban 5 MG TABLET PO SCH ×3 (01:29→19:39)
[2020-11-18] MEDS: Ipratropium/Albuterol Neb 3 ML IH SCH ×6 (04:25→23:00)
[2020-11-18 06:00] LABS: Mean Corpuscular Volume 91.1 fL (83.0-100.0)
[2020-11-18 06:01] LABS: Hematocrit 33.8 % (37.5-50.1); Hemoglobin 9.6 g/dL (12.9-16.9); Mean Corpuscular HGB Conc 28.4 g/dL (31.6-35.5); Mean Corpuscular Hemoglobin 25.9 pg (28.0-33.3); Mean Platelet Volume 12.3 fL (9.4-12.4); Platelet Count 261 K/mcL (140-400); Red Blood Count 3.71 M/mcL (4.19-5.50); Red Cell Distribution Width 16.7 % (11.5-14.5); White Blood Count 10.1 K/mcL (4.3-11.1)
[2020-11-18 06:19] LABS: BUN/Creatinine Ratio 20 (6-26); Blood Urea Nitrogen 24 mg/dL (8-23); Calcium 8.7 mg/dL (8.6-10.3); Carbon Dioxide 37 mEq/L (23-29); Chloride 98 mEq/L (98-107); Glucose 207 mg/dL (70-105); Osmolality,Calculated 298 (280-300); Potassium 5.1 mEq/L (3.5-5.1); Sodium 139 mEq/L (136-145); eGFR For African Americans > 60 (> 60); eGFR For Non-African Americans 59 (> 60)
[2020-11-18] MEDS: cefTRIAXone 1,000 MG in Water for inj. (sterile) 10 ML IVP SCH (08:14)
[2020-11-18] MEDS ORDERED: Azithromycin 250 MG TABLET PO SCH (09:00)
[2020-11-18] MEDS ORDERED: predniSONE 20 MG TABLET PO SCH (09:00)
[2020-11-18] MEDS: Metoprolol XL (24 HR) Succ 50 MG TAB.ER.24H PO SCH ×2 (16:21→19:39)
[2020-11-18] MEDS: Azithromycin 500 MG in 0.9 % Sodium Chloride 250 ML IVPB SCH (19:38)
[2020-11-18] MEDS: QUEtiapine Fumarate 300 MG TABLET PO SCH (19:39)
[2020-11-18] MEDS: Budesonide/Formoterol 160/4.5 1 PUFF INH IH SCH (20:00)
[2020-11-18] MEDS ORDERED: *HR* Promethazine 25 MG/ML VIAL IM ONE (20:28)
[2020-11-18] MEDS ORDERED: Haloperidol Lactate 5 MG/ML VIAL IVP ONE (21:42)
[2020-11-19 01:14] LABS: VBG HCO3 41 mEq/L (21-27); VBG PCO2 102 mmHg (41-51); VBG PH 7.22 pH Units (7.32-7.42); VBG PO2 42 mmHg (25-50)
[2020-11-19] MEDS: Dexmedetomidine HCl 400 MCG/100 ML MLS IVC SCH ×5 (02:33→22:45)
[2020-11-19] MEDS: Ipratropium/Albuterol Neb 3 ML IH SCH ×6 (04:33→23:19)
[2020-11-19 04:57] LABS: ABG Base Excess 16 mEq/L (-2 to 3); ABG HCO3 47 mEq/L (21-27); ABG Oxygen Saturation 89 % (95-98); ABG PCO2 104 mmHg (35-45); ABG PH 7.26 pH Units (7.32-7.45); ABG PO2 69 mmHg (85-104); ABG TCO2 > 50 mEq/L (20-26); Blood Gas Modality BiLevel; Blood Gas VT 500 cc
[2020-11-19 05:40] LABS: Hemoglobin 8.3 g/dL (12.9-16.9); White Blood Count 7.4 K/mcL (4.3-11.1)
[2020-11-19 05:42] LABS: Hematocrit 29.8 % (37.5-50.1); Mean Corpuscular HGB Conc 27.9 g/dL (31.6-35.5); Mean Corpuscular Hemoglobin 25.2 pg (28.0-33.3); Mean Corpuscular Volume 90.6 fL (83.0-100.0); Mean Platelet Volume 12.4 fL (9.4-12.4); Platelet Count 226 K/mcL (140-400); Red Blood Count 3.29 M/mcL (4.19-5.50); Red Cell Distribution Width 16.6 % (11.5-14.5)
[2020-11-19 06:00] LABS: BUN/Creatinine Ratio 34 (6-26); Blood Urea Nitrogen 42 mg/dL (8-23); Calcium 8.7 mg/dL (8.6-10.3); Carbon Dioxide 44 mEq/L (23-29); Chloride 95 mEq/L (98-107); Glucose 168 mg/dL (70-105); Magnesium 1.8 mg/dL (1.6-2.6); Osmolality,Calculated 306 (280-300); Potassium 4.6 mEq/L (3.5-5.1); Sodium 141 mEq/L (136-145); eGFR For African Americans > 60 (> 60); eGFR For Non-African Americans 58 (> 60)
[2020-11-19] MEDS: Furosemide 40 MG/4 ML VIAL IVP SCH ×2 (06:03→20:43)
[2020-11-19] MEDS: Budesonide/Formoterol 160/4.5 1 PUFF INH IH SCH ×2 (07:45→19:57)
[2020-11-19 08:18] LABS: ABG Base Excess 16 mEq/L (-2 to 3); ABG HCO3 46 mEq/L (21-27); ABG Oxygen Saturation 82 % (95-98); ABG PCO2 108 mmHg (35-45); ABG PH 7.24 pH Units (7.32-7.45); ABG PO2 59 mmHg (85-104); ABG TCO2 50 mEq/L (20-26); Blood Gas VT 500 cc
[2020-11-19] MEDS: Insulin LISPRO 300 UNITS/3 ML VIAL SUBQ SCH ×4 (08:24→20:43)
[2020-11-19] MEDS: Aspirin Enteric Coated 81 MG Tablet PO SCH (08:50)
[2020-11-19] MEDS: Apixaban 5 MG TABLET PO SCH ×2 (08:50→20:41)
[2020-11-19] MEDS: methylPREDNISolone 125 MG/2 ML VIAL IVP SCH ×2 (08:51→17:06)
[2020-11-19] MEDS: Cholecalciferol (D-3) 1,000 UNIT (25MCG) TABLET PO SCH (08:51)
[2020-11-19] MEDS: Metoprolol XL (24 HR) Succ 50 MG TAB.ER.24H PO SCH (08:51)
[2020-11-19] MEDS: cefTRIAXone 1,000 MG in Water for inj. (sterile) 10 ML IVP SCH (08:53)
[2020-11-19 10:08] LABS: ABG Base Excess 15 mEq/L (-2 to 3); ABG HCO3 45 mEq/L (21-27); ABG Oxygen Saturation 99 % (95-98); ABG PCO2 100 mmHg (35-45); ABG PH 7.26 pH Units (7.32-7.45); ABG PO2 157 mmHg (85-104); ABG TCO2 48 mEq/L (20-26); Blood Gas VT 550 cc
[2020-11-19] MEDS ORDERED: Artificial Tears SOLN 15 ML BOTTLE BOTH EYES PRN (10:38)
[2020-11-19] MEDS: FentaNYL (PF) 1,000 MCG/100 ML IV.SOLN IVC SCH ×3 (11:04→23:40)
[2020-11-19 11:56] LABS: ABG Base Excess 14 mEq/L (-2 to 3); ABG HCO3 44 mEq/L (21-27); ABG Oxygen Saturation 87 % (95-98); ABG PCO2 97 mmHg (35-45); ABG PH 7.27 pH Units (7.32-7.45); ABG PO2 65 mmHg (85-104); ABG TCO2 47 mEq/L (20-26); Blood Gas Modality ASSIST CONTROL; Blood Gas VT 450 cc
[2020-11-19] MEDS: Artificial Tears SOLN 15 ML BOTTLE BOTH EYES SCH ×3 (13:02→20:40)
[2020-11-19] MEDS ORDERED: *HR* Etomidate 20 MG/10 ML AMPUL IVP ONE (16:24)
[2020-11-19] MEDS ORDERED: *HR* Midazolam HCl 5 MG/5 ML VIAL IVP ONE (16:24)
[2020-11-19] MEDS: Famotidine 20 MG/2 ML VIAL IVP SCH (17:06)
[2020-11-19] MEDS: Vancomycin 1,750 MG/517.5 ML IV.SOLN IVPB SCH (18:08)
[2020-11-19] MEDS: QUEtiapine Fumarate 300 MG TABLET PO SCH (20:41)
[2020-11-19] MEDS: Chlorhexidine Rinse 15 ML MOUTHWASH MM SCH (20:41)
[2020-11-19] MEDS: Azithromycin 500 MG in 0.9 % Sodium Chloride 250 ML IVPB SCH (20:42)
[2020-11-20] MEDS: Artificial Tears SOLN 15 ML BOTTLE BOTH EYES SCH ×7 (00:32→23:42)
[2020-11-20] MEDS: methylPREDNISolone 125 MG/2 ML VIAL IVP SCH ×3 (00:34→20:11)
[2020-11-20] MEDS: *HR* Metoprolol 5 MG/5 ML VIAL IVP SCH ×5 (00:36→23:42)
[2020-11-20 03:44] LABS: Hematocrit 30.5 % (37.5-50.1); Immature Granulocytes % 0.2 % (0-4); Lymphocytes % 5.1 %; Mean Corpuscular HGB Conc 29.5 g/dL (31.6-35.5); Mean Corpuscular Hemoglobin 25.4 pg (28.0-33.3); Mean Corpuscular Volume 86.2 fL (83.0-100.0); Mean Platelet Volume 11.8 fL (9.4-12.4); Platelet Count 215 K/mcL (140-400); Red Blood Count 3.54 M/mcL (4.19-5.50); Red Cell Distribution Width 16.4 % (11.5-14.5); Segmented Neutrophils % 92.7 %; White Blood Count 4.9 K/mcL (4.3-11.1)
[2020-11-20 03:45] LABS: Lymphocytes # 0.3 K/mcL (0.6-4.6); Monocytes # 0.1 K/mcL (0.0-1.3); Neutrophils # 4.6 K/mcL (1.6-8.9)
[2020-11-20] MEDS: Ipratropium/Albuterol Neb 3 ML IH SCH ×5 (03:56→19:37)
[2020-11-20] MEDS: Dexmedetomidine HCl 400 MCG/100 ML MLS IVC SCH ×4 (03:58→20:03)
[2020-11-20] MEDS: Vancomycin 1,750 MG/517.5 ML IV.SOLN IVPB SCH ×2 (04:00→17:08)
[2020-11-20 04:08] LABS: BUN/Creatinine Ratio 41 (6-26); Blood Urea Nitrogen 44 mg/dL (8-23); Carbon Dioxide 42 mEq/L (23-29); Chloride 92 mEq/L (98-107); Glucose 221 mg/dL (70-105); Osmolality,Calculated 308 (280-300); Potassium 4.5 mEq/L (3.5-5.1); Sodium 140 mEq/L (136-145); eGFR For African Americans > 60 (> 60); eGFR For Non-African Americans > 60 (> 60)
[2020-11-20 04:17] LABS: ABG Base Excess 14 mEq/L (-2 to 3); ABG HCO3 42 mEq/L (21-27); ABG Oxygen Saturation 88 % (95-98); ABG PCO2 78 mmHg (35-45); ABG PH 7.35 pH Units (7.32-7.45); ABG PO2 61 mmHg (85-104); ABG TCO2 45 mEq/L (20-26); Blood Gas Modality ASSIST CONTROL; Blood Gas VT 450 cc
[2020-11-20] MEDS: FentaNYL (PF) 1,000 MCG/100 ML IV.SOLN IVC SCH ×3 (05:02→17:09)
[2020-11-20] MEDS: Famotidine 20 MG/2 ML VIAL IVP SCH ×2 (05:35→17:08)
[2020-11-20] MEDS: Budesonide/Formoterol 160/4.5 1 PUFF INH IH SCH ×2 (07:28→19:59)
[2020-11-20] MEDS: Aspirin Enteric Coated 81 MG Tablet PO SCH (07:50)
[2020-11-20] MEDS: Insulin LISPRO 300 UNITS/3 ML VIAL SUBQ SCH ×5 (07:55→23:42)
[2020-11-20] MEDS: Chlorhexidine Rinse 15 ML MOUTHWASH MM SCH ×2 (07:56→20:13)
[2020-11-20] MEDS: Apixaban 5 MG TABLET PO SCH ×2 (07:57→20:08)
[2020-11-20] MEDS: Furosemide 40 MG/4 ML VIAL IVP SCH ×2 (07:57→20:09)
[2020-11-20] MEDS: cefTRIAXone 1,000 MG in Water for inj. (sterile) 10 ML IVP SCH (07:57)
[2020-11-20] MEDS: Cholecalciferol (D-3) 1,000 UNIT (25MCG) TABLET PO SCH (07:58)
[2020-11-20] MEDS: Azithromycin 500 MG in 0.9 % Sodium Chloride 250 ML IVPB SCH (20:06)
[2020-11-20] MEDS: QUEtiapine Fumarate 300 MG TABLET PO SCH (20:08)
[2020-11-21] MEDS: Ipratropium/Albuterol Neb 3 ML IH SCH ×6 (00:05→20:01)
[2020-11-21] MEDS: FentaNYL (PF) 1,000 MCG/100 ML IV.SOLN IVC SCH ×2 (00:47→09:02)
[2020-11-21] MEDS: Dexmedetomidine HCl 400 MCG/100 ML MLS IVC SCH ×6 (00:47→20:18)
[2020-11-21 03:34] LABS: VBG Ionized Calcium 1.13 mmol/L (1.15-1.35)
[2020-11-21 03:39] LABS: Basophils % 0.1 %; Hemoglobin 9.5 g/dL (12.9-16.9); Immature Granulocytes % 0.4 % (0-4); Lymphocytes # 0.4 K/mcL (0.6-4.6); Lymphocytes % 5.3 %; Mean Corpuscular HGB Conc 30.6 g/dL (31.6-35.5); Mean Corpuscular Hemoglobin 25.5 pg (28.0-33.3); Mean Corpuscular Volume 83.1 fL (83.0-100.0); Mean Platelet Volume 11.8 fL (9.4-12.4); Monocytes # 0.3 K/mcL (0.0-1.3); Monocytes % 4.5 %; Neutrophils # 6.2 K/mcL (1.6-8.9); Platelet Count 227 K/mcL (140-400); Red Blood Count 3.73 M/mcL (4.19-5.50); Red Cell Distribution Width 16.8 % (11.5-14.5); Segmented Neutrophils % 89.7 %; White Blood Count 6.9 K/mcL (4.3-11.1)
[2020-11-21 03:59] LABS: ABG Base Excess 19 mEq/L (-2 to 3); ABG HCO3 46 mEq/L (21-27); ABG Oxygen Saturation 91 % (95-98); ABG PCO2 65 mmHg (35-45); ABG PH 7.46 pH Units (7.32-7.45); ABG PO2 62 mmHg (85-104); ABG TCO2 48 mEq/L (20-26); Blood Gas Modality ASSIST CONTROL; Blood Gas VT 450 cc
[2020-11-21 04:01] LABS: BUN/Creatinine Ratio 38 (6-26); Blood Urea Nitrogen 38 mg/dL (8-23); Calcium 9.2 mg/dL (8.6-10.3); Carbon Dioxide > 45 mEq/L (23-29); Chloride 90 mEq/L (98-107); Glucose 150 mg/dL (70-105); Magnesium 1.5 mg/dL (1.6-2.6); Osmolality,Calculated 302 (280-300); Phosphorous 2.1 mg/dL (2.7-4.5); Potassium 3.8 mEq/L (3.5-5.1); Sodium 140 mEq/L (136-145); Vancomycin,Trough 33 mcg/mL (5-10); eGFR For African Americans > 60 (> 60); eGFR For Non-African Americans > 60 (> 60)
[2020-11-21] MEDS: Insulin LISPRO 300 UNITS/3 ML VIAL SUBQ SCH ×6 (04:12→23:35)
[2020-11-21] MEDS: Artificial Tears SOLN 15 ML BOTTLE BOTH EYES SCH ×6 (04:12→23:34)
[2020-11-21] MEDS: Vancomycin 1,750 MG/517.5 ML IV.SOLN IVPB SCH (04:19)
[2020-11-21] MEDS: *HR* Metoprolol 5 MG/5 ML VIAL IVP SCH ×4 (05:05→23:34)
[2020-11-21] MEDS: Famotidine 20 MG/2 ML VIAL IVP SCH ×2 (05:06→17:06)
[2020-11-21] MEDS ORDERED: Potassium Phosphate 44 MEQ in 0.9 % Sodium Chloride 250 ML IVPB ONE (07:09)
[2020-11-21] MEDS: Budesonide/Formoterol 160/4.5 1 PUFF INH IH SCH ×2 (07:17→20:03)
[2020-11-21] MEDS: cefTRIAXone 1,000 MG in Water for inj. (sterile) 10 ML IVP SCH (08:00)
[2020-11-21] MEDS: Furosemide 40 MG/4 ML VIAL IVP SCH (08:00)
[2020-11-21] MEDS: Cholecalciferol (D-3) 1,000 UNIT (25MCG) TABLET PO SCH (08:01)
[2020-11-21] MEDS: methylPREDNISolone 125 MG/2 ML VIAL IVP SCH (08:01)
[2020-11-21] MEDS: Aspirin 81 MG TAB.CHEW GTUBE SCH (08:01)
[2020-11-21] MEDS: Chlorhexidine Rinse 15 ML MOUTHWASH MM SCH ×2 (08:01→20:20)
[2020-11-21] MEDS: Apixaban 5 MG TABLET PO SCH ×2 (08:01→20:20)
[2020-11-21 19:22] LABS: Phosphorous 3.3 mg/dL (2.7-4.5)
[2020-11-21] MEDS: QUEtiapine Fumarate 300 MG TABLET PO SCH (20:20)
[2020-11-21] MEDS: Azithromycin 500 MG in 0.9 % Sodium Chloride 250 ML IVPB SCH (20:21)
[2020-11-22] MEDS: Dexmedetomidine HCl 400 MCG/100 ML MLS IVC SCH ×6 (00:34→19:43)
[2020-11-22] MEDS: Ipratropium/Albuterol Neb 3 ML IH SCH ×7 (00:37→23:11)
[2020-11-22] MEDS: Artificial Tears SOLN 15 ML BOTTLE BOTH EYES SCH ×2 (02:06→08:13)
[2020-11-22] MEDS: Insulin LISPRO 300 UNITS/3 ML VIAL SUBQ SCH ×5 (04:02→20:42)
[2020-11-22 04:12] LABS: Hematocrit 32.2 % (37.5-50.1); Hemoglobin 9.9 g/dL (12.9-16.9); Immature Granulocytes % 0.3 % (0-4); Lymphocytes # 0.9 K/mcL (0.6-4.6); Lymphocytes % 9.8 %; Mean Corpuscular HGB Conc 30.7 g/dL (31.6-35.5); Mean Corpuscular Hemoglobin 25.6 pg (28.0-33.3); Mean Corpuscular Volume 83.2 fL (83.0-100.0); Mean Platelet Volume 11.7 fL (9.4-12.4); Monocytes # 0.7 K/mcL (0.0-1.3); Platelet Count 222 K/mcL (140-400); Red Blood Count 3.87 M/mcL (4.19-5.50); Segmented Neutrophils % 82.9 %; White Blood Count 9.6 K/mcL (4.3-11.1)
[2020-11-22 04:14] LABS: VBG Ionized Calcium 1.14 mmol/L (1.15-1.35)
[2020-11-22 04:36] LABS: Alanine Aminotransferase 6 Units/L (7-52); Albumin/Globulin Ratio 0.8 (1.1-2.2); Alkaline Phosphatase 48 Units/L (34-104); Aspartate Amino Transferase 9 Units/L (13-39); BUN/Creatinine Ratio 37 (6-26); Bilirubin,Total 0.5 mg/dL (0.3-1.0); Blood Urea Nitrogen 31 mg/dL (8-23); Calcium 9.2 mg/dL (8.6-10.3); Carbon Dioxide 42 mEq/L (23-29); Chloride 93 mEq/L (98-107); Globulin 3.7 g/dL (2.4-3.5); Glucose 103 mg/dL (70-105); Osmolality,Calculated 297 (280-300); Potassium 3.9 mEq/L (3.5-5.1); Sodium 140 mEq/L (136-145); Total Protein 6.7 g/dL (6.4-8.9); eGFR For African Americans > 60 (> 60); eGFR For Non-African Americans > 60 (> 60)
[2020-11-22] MEDS: Famotidine 20 MG/2 ML VIAL IVP SCH (05:35)
[2020-11-22] MEDS: *HR* Metoprolol 5 MG/5 ML VIAL IVP SCH (05:36)
[2020-11-22] MEDS: Budesonide/Formoterol 160/4.5 1 PUFF INH IH SCH ×2 (07:30→20:06)
[2020-11-22] MEDS: cefTRIAXone 1,000 MG in Water for inj. (sterile) 10 ML IVP SCH (08:15)
[2020-11-22] MEDS: Apixaban 5 MG TABLET PO SCH ×2 (08:20→20:44)
[2020-11-22] MEDS: Aspirin 81 MG TAB.CHEW GTUBE SCH (08:20)
[2020-11-22] MEDS: Cholecalciferol (D-3) 1,000 UNIT (25MCG) TABLET PO SCH (08:21)
[2020-11-22] MEDS: Chlorhexidine Rinse 15 ML MOUTHWASH MM SCH (08:25)
[2020-11-22] MEDS ORDERED: methylPREDNISolone 125 MG/2 ML VIAL IVP SCH (09:00)
[2020-11-22] MEDS ORDERED: Mag Hydrox/Al Hydrox/Simeth 30 ML UDC PO PRN (10:04)
[2020-11-22] MEDS ORDERED: Naloxone 0.4 MG/ML INJ IVP PRN (10:04)
[2020-11-22] MEDS ORDERED: D5% in Water 1,000 ML IVC PRN (10:04)
[2020-11-22] MEDS ORDERED: Dextrose Gel 15 GM/37.5 ML TUBE PO PRN ×2 (10:04)
[2020-11-22] MEDS ORDERED: *HR* Dextrose 50 % in Water (Vial) 50 ML VIAL IVP PRN (10:04)
[2020-11-22] MEDS ORDERED: Ondansetron ODT 4 MG TAB.RAPDIS SL PRN (10:04)
[2020-11-22] MEDS ORDERED: Albuterol 2.5 MG/3 ML NEBULIZER IH PRN (10:04)
[2020-11-22] MEDS ORDERED: E-Z-PAQUE (BARIUM SULF) SUSP 1 BOTTLE PO ONE (14:14)
[2020-11-22] MEDS ORDERED: E-Z-HD (BARIUM SULF) SUSPENSION PO ONE (14:14)
[2020-11-22] MEDS: QUEtiapine Fumarate 300 MG TABLET PO SCH (20:44)
[2020-11-22] MEDS ORDERED: Acetaminophen 325 MG TABLET PO PRN (23:57)
[2020-11-23] MEDS: *HR* HYDROcodone/Acet 5/325 mg TABLET PO PRN ×6 (00:11→21:48)
[2020-11-23] MEDS: Dexmedetomidine HCl 400 MCG/100 ML MLS IVC SCH ×7 (00:12→23:02)
[2020-11-23] MEDS: Insulin LISPRO 300 UNITS/3 ML VIAL SUBQ SCH ×6 (03:44→20:16)
[2020-11-23] MEDS: Ipratropium/Albuterol Neb 3 ML IH SCH ×6 (04:02→23:01)
[2020-11-23] MEDS: Budesonide/Formoterol 160/4.5 1 PUFF INH IH SCH ×2 (07:36→19:30)
[2020-11-23] MEDS: Aspirin 81 MG TAB.CHEW PO SCH (08:54)
[2020-11-23] MEDS: Cholecalciferol (D-3) 1,000 UNIT (25MCG) TABLET PO SCH (08:54)
[2020-11-23] MEDS: Apixaban 5 MG TABLET PO SCH ×2 (08:54→20:47)
[2020-11-23] MEDS: methylPREDNISolone 125 MG/2 ML VIAL IVP SCH (08:55)
[2020-11-23] MEDS ORDERED: cefTRIAXone 1,000 MG in Water for inj. (sterile) 10 ML IVP SCH (09:00)
[2020-11-23 12:08] LABS: Hematocrit 35.7 % (37.5-50.1); Hemoglobin 10.7 g/dL (12.9-16.9); Mean Corpuscular Hemoglobin 25.1 pg (28.0-33.3); Mean Corpuscular Volume 83.6 fL (83.0-100.0); Mean Platelet Volume 12.1 fL (9.4-12.4); Platelet Count 207 K/mcL (140-400); Red Blood Count 4.27 M/mcL (4.19-5.50); Red Cell Distribution Width 16.8 % (11.5-14.5); White Blood Count 11.4 K/mcL (4.3-11.1)
[2020-11-23 12:37] LABS: BUN/Creatinine Ratio 38 (6-26); Blood Urea Nitrogen 31 mg/dL (8-23); Calcium 9.2 mg/dL (8.6-10.3); Carbon Dioxide 36 mEq/L (23-29); Chloride 93 mEq/L (98-107); Glucose 252 mg/dL (70-105); Magnesium 1.7 mg/dL (1.6-2.6); Osmolality,Calculated 297 (280-300); Potassium 4.2 mEq/L (3.5-5.1); Sodium 136 mEq/L (136-145); eGFR For African Americans > 60 (> 60); eGFR For Non-African Americans > 60 (> 60)
[2020-11-23] MEDS ORDERED: Vancomycin 1,500 MG/265 ML IV.SOLN IVPB SCH (13:00)
[2020-11-23] MEDS: lisinopriL 5 MG TABLET PO SCH (17:25)
[2020-11-23] MEDS: QUEtiapine Fumarate 300 MG TABLET PO SCH (20:47)
[2020-11-24] MEDS: Insulin LISPRO 300 UNITS/3 ML VIAL SUBQ SCH ×6 (00:12→21:15)
[2020-11-24 01:12] LABS: Immature Granulocytes % 0.4 % (0-4); Mean Corpuscular HGB Conc 30.1 g/dL (31.6-35.5); Mean Corpuscular Hemoglobin 25.2 pg (28.0-33.3)
[2020-11-24 01:14] LABS: Eosinophils % 0.1 %; Hematocrit 34.2 % (37.5-50.1); Hemoglobin 10.3 g/dL (12.9-16.9); Immature Platelets 9.8 % (1.1-6.1); Lymphocytes % 10.8 %; Mean Corpuscular Volume 83.6 fL (83.0-100.0); Monocytes # 0.4 K/mcL (0.0-1.3); Monocytes % 3.8 %; Neutrophils # 8.1 K/mcL (1.6-8.9); Platelet Count 183 K/mcL (140-400); Red Blood Count 4.09 M/mcL (4.19-5.50); Red Cell Distribution Width 16.6 % (11.5-14.5); Segmented Neutrophils % 84.9 %; White Blood Count 9.5 K/mcL (4.3-11.1)
[2020-11-24 01:29] LABS: BUN/Creatinine Ratio 40 (6-26); Blood Urea Nitrogen 42 mg/dL (8-23); Calcium 8.7 mg/dL (8.6-10.3); Carbon Dioxide 35 mEq/L (23-29); Chloride 93 mEq/L (98-107); Glucose 309 mg/dL (70-105); Osmolality,Calculated 300 (280-300); Potassium 4.3 mEq/L (3.5-5.1); Sodium 134 mEq/L (136-145); eGFR For African Americans > 60 (> 60); eGFR For Non-African Americans > 60 (> 60)
[2020-11-24] MEDS: Dexmedetomidine HCl 400 MCG/100 ML MLS IVC SCH (02:39)
[2020-11-24] MEDS: Ipratropium/Albuterol Neb 3 ML IH SCH ×5 (03:49→19:50)
[2020-11-24] MEDS: *HR* HYDROcodone/Acet 5/325 mg TABLET PO PRN (03:53)
[2020-11-24] MEDS: Budesonide/Formoterol 160/4.5 1 PUFF INH IH SCH ×2 (07:27→19:50)
[2020-11-24] MEDS: Aspirin 81 MG TAB.CHEW PO SCH (08:06)
[2020-11-24] MEDS: lisinopriL 5 MG TABLET PO SCH (08:07)
[2020-11-24] MEDS: Apixaban 5 MG TABLET PO SCH ×2 (08:07→21:13)
[2020-11-24] MEDS: Finasteride 5 MG TABLET PO SCH (08:07)
[2020-11-24] MEDS: Cholecalciferol (D-3) 1,000 UNIT (25MCG) TABLET PO SCH (08:07)
[2020-11-24] MEDS: methylPREDNISolone 125 MG/2 ML VIAL IVP SCH (08:08)
[2020-11-24 08:47] LABS: Magnesium 1.6 mg/dL (1.6-2.6)
[2020-11-24] MEDS ORDERED: *HR* OxyCODONE Immed Rel 5 MG TABLET PO PRN (09:54)
[2020-11-24] MEDS: *HR* OxyCODONE Immed Rel 5 MG TABLET PO PRN ×4 (10:06→23:27)
[2020-11-24] MEDS ORDERED: Magnesium Sulfate 1 GM/102 ML PIGGYBACK IVPB ONE (12:37)
[2020-11-24] MEDS: Furosemide 40 MG TABLET PO SCH (16:38)
[2020-11-24] MEDS: QUEtiapine Fumarate 300 MG TABLET PO SCH (21:13)
[2020-11-25] MEDS: Ipratropium/Albuterol Neb 3 ML IH SCH ×7 (00:03→23:06)
[2020-11-25] MEDS: *HR* OxyCODONE Immed Rel 5 MG TABLET PO PRN ×5 (03:22→20:56)
[2020-11-25 03:42] LABS: Hematocrit 34.2 % (37.5-50.1); Hemoglobin 10.1 g/dL (12.9-16.9); Immature Platelets 10.8 % (1.1-6.1); Mean Corpuscular HGB Conc 29.5 g/dL (31.6-35.5); Mean Corpuscular Hemoglobin 24.9 pg (28.0-33.3); Mean Corpuscular Volume 84.4 fL (83.0-100.0); Mean Platelet Volume 12.8 fL (9.4-12.4); Red Blood Count 4.05 M/mcL (4.19-5.50); Red Cell Distribution Width 17.1 % (11.5-14.5); White Blood Count 14.9 K/mcL (4.3-11.1)
[2020-11-25 04:00] LABS: BUN/Creatinine Ratio 50 (6-26); Blood Urea Nitrogen 65 mg/dL (8-23); Calcium 8.8 mg/dL (8.6-10.3); Carbon Dioxide 35 mEq/L (23-29); Chloride 98 mEq/L (98-107); Glucose 339 mg/dL (70-105); Osmolality,Calculated 316 (280-300); Potassium 4.4 mEq/L (3.5-5.1); Sodium 137 mEq/L (136-145); eGFR For African Americans > 60 (> 60); eGFR For Non-African Americans 56 (> 60)
[2020-11-25] MEDS: Budesonide/Formoterol 160/4.5 1 PUFF INH IH SCH ×2 (07:21→19:40)
[2020-11-25] MEDS: lisinopriL 5 MG TABLET PO SCH (07:46)
[2020-11-25] MEDS: predniSONE 20 MG TABLET PO SCH (07:46)
[2020-11-25] MEDS: Cholecalciferol (D-3) 1,000 UNIT (25MCG) TABLET PO SCH (07:46)
[2020-11-25] MEDS: Aspirin 81 MG TAB.CHEW PO SCH (07:46)
[2020-11-25] MEDS: Furosemide 40 MG TABLET PO SCH (07:46)
[2020-11-25] MEDS: Apixaban 5 MG TABLET PO SCH ×2 (07:46→20:56)
[2020-11-25] MEDS: Finasteride 5 MG TABLET PO SCH (07:47)
[2020-11-25] MEDS: Insulin LISPRO 300 UNITS/3 ML VIAL SUBQ SCH ×2 (11:58→17:04)
[2020-11-25] MEDS: QUEtiapine Fumarate 300 MG TABLET PO SCH (20:55)
[2020-11-25] MEDS ORDERED: traZODone 50 MG TABLET PO ONE (21:30)
[2020-11-26] MEDS: Ipratropium/Albuterol Neb 3 ML IH SCH ×6 (03:54→23:46)
[2020-11-26] MEDS: Budesonide/Formoterol 160/4.5 1 PUFF INH IH SCH ×2 (07:39→20:09)
[2020-11-26] MEDS: lisinopriL 5 MG TABLET PO SCH (07:49)
[2020-11-26] MEDS: *HR* OxyCODONE Immed Rel 5 MG TABLET PO PRN ×3 (07:49→20:59)
[2020-11-26] MEDS: Aspirin 81 MG TAB.CHEW PO SCH (07:49)
[2020-11-26] MEDS: Cholecalciferol (D-3) 1,000 UNIT (25MCG) TABLET PO SCH (07:49)
[2020-11-26] MEDS: Finasteride 5 MG TABLET PO SCH (07:49)
[2020-11-26] MEDS: Apixaban 5 MG TABLET PO SCH ×2 (07:49→20:59)
[2020-11-26] MEDS: predniSONE 20 MG TABLET PO SCH (07:49)
[2020-11-26] MEDS: Insulin LISPRO 300 UNITS/3 ML VIAL SUBQ SCH ×3 (07:50→16:55)
[2020-11-26 11:15] LABS: Hemoglobin 9.4 g/dL (12.9-16.9)
[2020-11-26 11:30] LABS: Red Cell Distribution Width 17.2 % (11.5-14.5)
[2020-11-26 11:32] LABS: Hematocrit 31.3 % (37.5-50.1); Immature Platelets 12.8 % (1.1-6.1); Mean Corpuscular Hemoglobin 25.3 pg (28.0-33.3); Mean Corpuscular Volume 84.1 fL (83.0-100.0); Platelet Count 198 K/mcL (140-400); Red Blood Count 3.72 M/mcL (4.19-5.50)
[2020-11-26 11:33] LABS: BUN/Creatinine Ratio 58 (6-26); Blood Urea Nitrogen 57 mg/dL (8-23); Carbon Dioxide 35 mEq/L (23-29); Chloride 99 mEq/L (98-107); Glucose 188 mg/dL (70-105); Osmolality,Calculated 307 (280-300); Sodium 138 mEq/L (136-145); eGFR For African Americans > 60 (> 60); eGFR For Non-African Americans > 60 (> 60)
[2020-11-26 12:33] LABS: Calcium 8.7 mg/dL (8.6-10.3)
[2020-11-26] MEDS ORDERED: rOPINIRole 1 MG TABLET PO SCH (21:00)
[2020-11-26] MEDS ORDERED: Melatonin 3 MG TABLET PO SCH (21:00)
[2020-11-26] MEDS: QUEtiapine Fumarate 300 MG TABLET PO SCH (22:23)
[2020-11-27 02:38] LABS: BUN/Creatinine Ratio 58 (6-26); Blood Urea Nitrogen 59 mg/dL (8-23); Calcium 8.8 mg/dL (8.6-10.3); Carbon Dioxide 31 mEq/L (23-29); Chloride 100 mEq/L (98-107); Glucose 250 mg/dL (70-105); Osmolality,Calculated 309 (280-300); Potassium 4.5 mEq/L (3.5-5.1); Sodium 137 mEq/L (136-145); eGFR For African Americans > 60 (> 60); eGFR For Non-African Americans > 60 (> 60)
[2020-11-27 02:39] LABS: Hematocrit 31.3 % (37.5-50.1); Hemoglobin 9.3 g/dL (12.9-16.9); Immature Platelets 13.1 % (1.1-6.1); Mean Corpuscular HGB Conc 29.7 g/dL (31.6-35.5); Mean Corpuscular Hemoglobin 24.8 pg (28.0-33.3); Mean Corpuscular Volume 83.5 fL (83.0-100.0); Platelet Count 202 K/mcL (140-400); Red Blood Count 3.75 M/mcL (4.19-5.50)
[2020-11-27] MEDS: Ipratropium/Albuterol Neb 3 ML IH SCH ×4 (03:51→15:26)
[2020-11-27] MEDS: Budesonide/Formoterol 160/4.5 1 PUFF INH IH SCH (07:16)
[2020-11-27] MEDS: Finasteride 5 MG TABLET PO SCH (08:11)
[2020-11-27] MEDS: Apixaban 5 MG TABLET PO SCH (08:11)
[2020-11-27] MEDS: lisinopriL 5 MG TABLET PO SCH (08:11)
[2020-11-27] MEDS: Cholecalciferol (D-3) 1,000 UNIT (25MCG) TABLET PO SCH (08:11)
[2020-11-27] MEDS: Insulin LISPRO 300 UNITS/3 ML VIAL SUBQ SCH ×2 (08:12→12:00)
[2020-11-27] MEDS: Aspirin 81 MG TAB.CHEW PO SCH (08:12)
[2020-11-27] MEDS: *HR* OxyCODONE Immed Rel 5 MG TABLET PO PRN (08:16)
[2020-11-27] MEDS: predniSONE 20 MG TABLET PO SCH (09:41)
[2020-11-27 11:18] VITALS: BP 100/66; PULSE 92; TEMP 98
[2020-11-27] MEDS ORDERED: hydrOXYzine pamoate 25 MG CAPSULE PO PRN (13:22)
[2020-11-27 17:32] VITALS: O2SAT 95
[2020-11-28] MEDS ORDERED: predniSONE 20 MG TABLET PO SCH (09:00)
== END 2020-11-27 17:25 | DRG 208 ==
LOC: EMEROOARM 16:20 → 2NNU 23:35 → SUATTDRO 23:35 → 2NNU 11-18 00:23 → ICNU 11-19 10:03 → 2NNU 11-22 17:33 → 2ANU 11-24 14:37
PROVIDERS: ADMIT Student in an Organized Health Care Education/Training Program; ATTEND Internal Medicine

== ENCOUNTER 2020-12-23 23:10 | Inpatient (IN) ==
[2020-12-23] MEDS ORDERED: Isovue-370 500 ML BOTTLE IVP ONE (23:39)
[2020-12-23] MEDS ORDERED: Ipratropium/Albuterol Neb 3 ML IH ONE (23:41)
[2020-12-24 00:31] LABS: VBG HCO3 41 mEq/L (21-27); VBG PCO2 116 mmHg (41-51); VBG PH 7.16 pH Units (7.32-7.42); VBG PO2 61 mmHg (25-50)
[2020-12-24 00:43] LABS: Alanine Aminotransferase 8 Units/L (7-52); Albumin 3.2 g/dL (3.5-5.7); Alkaline Phosphatase 78 Units/L (34-104); Aspartate Amino Transferase 10 Units/L (13-39); BUN/Creatinine Ratio 15 (6-26); Bilirubin,Direct 0.1 mg/dL (0.0-0.2); Bilirubin,Indirect 0.2 mg/dL (0.0-1.0); Bilirubin,Total 0.3 mg/dL (0.3-1.0); Blood Urea Nitrogen 12 mg/dL (8-23); Calcium 8.9 mg/dL (8.6-10.3); Carbon Dioxide 38 mEq/L (23-29); Chloride 99 mEq/L (98-107); Globulin 3.3 g/dL (2.4-3.5); Glucose 235 mg/dL (70-105); Osmolality,Calculated 299 (280-300); Potassium 4.1 mEq/L (3.5-5.1); Sodium 141 mEq/L (136-145); Total Protein 6.5 g/dL (6.4-8.9); Troponin I 0.03 ng/mL (< 0.04); eGFR For African Americans > 60 (> 60); eGFR For Non-African Americans > 60 (> 60)
[2020-12-24] MEDS ORDERED: Piperacillin/Tazobactam 3.375 GM in Water for inj. (sterile) 20 ML IVP ONE (00:47)
[2020-12-24] MEDS ORDERED: Vancomycin 1,750 MG/517.5 ML IV.SOLN IVPB ONE (01:00)
[2020-12-24 01:03] LABS: Influenza A PCR Negative (Negative); Influenza B PCR Negative (Negative); Resp. Syncytial Virus PCR Negative (Negative)
[2020-12-24 01:04] LABS: SARS-CoV-2 by PCR (In House) Negative (Negative)
[2020-12-24 01:25] LABS: Eosinophils % 1.5 %
[2020-12-24 01:27] LABS: Basophils % 0.3 %; Eosinophils # 0.2 K/mcL (0.0-0.6); Hematocrit 29.4 % (37.5-50.1); Hemoglobin 8.5 g/dL (12.9-16.9); Immature Granulocytes % 1.3 % (0-4); Lymphocytes # 0.5 K/mcL (0.6-4.6); Lymphocytes % 4.6 %; Mean Corpuscular HGB Conc 28.9 g/dL (31.6-35.5); Mean Corpuscular Hemoglobin 26.6 pg (28.0-33.3); Mean Corpuscular Volume 91.9 fL (83.0-100.0); Mean Platelet Volume 12.2 fL (9.4-12.4); Monocytes # 0.3 K/mcL (0.0-1.3); Monocytes % 2.5 %; Platelet Count 195 K/mcL (140-400); Red Cell Distribution Width 17.2 % (11.5-14.5); Segmented Neutrophils % 89.8 %; White Blood Count 11.1 K/mcL (4.3-11.1)
[2020-12-24] MEDS ORDERED: Naloxone 0.4 MG/ML INJ IVP PRN (05:28)
[2020-12-24] MEDS ORDERED: Acetaminophen 325 MG TABLET PO PRN (05:28)
[2020-12-24] MEDS ORDERED: Ondansetron 4 MG/2 ML VIAL IVP PRN (05:28)
[2020-12-24] MEDS ORDERED: D5% in Water 1,000 ML IVC PRN (05:33)
[2020-12-24] MEDS ORDERED: Dextrose Gel 15 GM/37.5 ML TUBE PO PRN ×2 (05:33)
[2020-12-24] MEDS ORDERED: *HR* Dextrose 50 % in Water (Syg) 50 ML SYRINGE IVP PRN (05:33)
[2020-12-24] MEDS ORDERED: Vancomycin 1,500 MG/265 ML IV.SOLN IVPB SCH ×2 (06:00→07:00)
[2020-12-24] MEDS ORDERED: Insulin LISPRO 300 UNITS/3 ML VIAL SUBQ SCH (06:00)
[2020-12-24 06:59] LABS: Basophils % 0.2 %; Eosinophils # 0.1 K/mcL (0.0-0.6); Eosinophils % 0.4 %; Hematocrit 29.9 % (37.5-50.1); Hemoglobin 8.7 g/dL (12.9-16.9); Immature Granulocytes % 1.1 % (0-4); Lymphocytes # 0.5 K/mcL (0.6-4.6); Lymphocytes % 3.6 %; Mean Corpuscular HGB Conc 29.1 g/dL (31.6-35.5); Mean Corpuscular Hemoglobin 26.2 pg (28.0-33.3); Mean Corpuscular Volume 90.1 fL (83.0-100.0); Mean Platelet Volume 12.1 fL (9.4-12.4); Monocytes # 0.1 K/mcL (0.0-1.3); Monocytes % 0.6 %; Neutrophils # 11.9 K/mcL (1.6-8.9); Platelet Count 203 K/mcL (140-400); Red Blood Count 3.32 M/mcL (4.19-5.50); Red Cell Distribution Width 17.1 % (11.5-14.5); Segmented Neutrophils % 94.1 %; White Blood Count 12.7 K/mcL (4.3-11.1)
[2020-12-24 07:21] LABS: Alanine Aminotransferase 6 Units/L (7-52); Albumin 3.4 g/dL (3.5-5.7); Albumin/Globulin Ratio 1.1 (1.1-2.2); Alkaline Phosphatase 85 Units/L (34-104); Aspartate Amino Transferase 8 Units/L (13-39); BUN/Creatinine Ratio 19 (6-26); Bilirubin,Total 0.4 mg/dL (0.3-1.0); Blood Urea Nitrogen 15 mg/dL (8-23); Calcium 9.2 mg/dL (8.6-10.3); Carbon Dioxide 35 mEq/L (23-29); Chloride 100 mEq/L (98-107); Glucose 312 mg/dL (70-105); Magnesium 1.7 mg/dL (1.6-2.6); Osmolality,Calculated 299 (280-300); Phosphorous 3.4 mg/dL (2.7-4.5); Sodium 138 mEq/L (136-145); Total Protein 6.4 g/dL (6.4-8.9); eGFR For African Americans > 60 (> 60); eGFR For Non-African Americans > 60 (> 60)
[2020-12-24] MEDS ORDERED: Albuterol 2.5 MG/3 ML NEBULIZER IH PRN (07:26)
[2020-12-24 09:08] LABS: ABG Base Excess 10 mEq/L (-2 to 3); ABG HCO3 40 mEq/L (21-27); ABG Oxygen Saturation 95 % (95-98); ABG PCO2 91 mmHg (35-45); ABG PH 7.25 pH Units (7.32-7.45); ABG PO2 94 mmHg (85-104); ABG TCO2 42 mEq/L (20-26); Blood Gas Modality BiLevel; Blood Gas Pressure Support 6 cm H2O
[2020-12-24] MEDS: Piperacillin/Tazobactam 3.375 GM in 0.9 % Sodium Chloride Mini Bag 100 ML IVPB SCH ×2 (10:00→23:08)
[2020-12-24] MEDS: Ipratropium/Albuterol Neb 3 ML IH SCH ×3 (10:01→21:57)
[2020-12-24] MEDS: Insulin LISPRO 300 UNITS/3 ML VIAL SUBQ SCH ×3 (14:38→20:24)
[2020-12-24] MEDS: Vancomycin 1,500 MG/265 ML IV.SOLN IVPB SCH (14:43)
[2020-12-24] MEDS: MethylPREDNISolone 40 MG/ML VIAL IVP SCH ×3 (14:52→23:07)
[2020-12-24] MEDS: Melatonin 3 MG TABLET PO PRN (20:23)
[2020-12-24] MEDS: Apixaban 5 MG TABLET PO SCH (20:23)
[2020-12-24] MEDS: QUEtiapine Fumarate 300 MG TABLET PO SCH (20:23)
[2020-12-24] MEDS: Furosemide 20 MG TABLET PO SCH (20:23)
[2020-12-24] MEDS: Budesonide/Formoterol 160/4.5 1 PUFF INH IH SCH (21:57)
[2020-12-24] MEDS ORDERED: *HR* LORazepam 2 MG/ML VIAL IVP ONE (22:52)
[2020-12-25] MEDS: Vancomycin 1,500 MG/265 ML IV.SOLN IVPB SCH ×2 (01:04→14:49)
[2020-12-25] MEDS: Ipratropium/Albuterol Neb 3 ML IH SCH ×4 (03:48→22:23)
[2020-12-25] MEDS: MethylPREDNISolone 40 MG/ML VIAL IVP SCH ×3 (05:00→17:38)
[2020-12-25] MEDS: lisinopriL 5 MG TABLET PO SCH (08:10)
[2020-12-25] MEDS: Apixaban 5 MG TABLET PO SCH ×2 (08:10→20:24)
[2020-12-25] MEDS: Multivit/Ca/Min/Fe/FA 1 TAB TABLET PO SCH (08:10)
[2020-12-25] MEDS: Aspirin Enteric Coated 81 MG Tablet PO SCH (08:10)
[2020-12-25] MEDS: Nicotine 14 MG PATCH.TD24 TD SCH (08:10)
[2020-12-25] MEDS: Cholecalciferol (D-3) 1,000 UNIT (25MCG) TABLET PO SCH (08:10)
[2020-12-25] MEDS: Furosemide 20 MG TABLET PO SCH ×2 (08:10→17:38)
[2020-12-25] MEDS: Finasteride 5 MG TABLET PO SCH (08:10)
[2020-12-25] MEDS: Piperacillin/Tazobactam 3.375 GM in 0.9 % Sodium Chloride Mini Bag 100 ML IVPB SCH ×4 (08:11→20:25)
[2020-12-25] MEDS: Insulin LISPRO 300 UNITS/3 ML VIAL SUBQ SCH ×4 (08:12→20:46)
[2020-12-25 08:55] LABS: Hematocrit 26.5 % (37.5-50.1); Hemoglobin 7.7 g/dL (12.9-16.9); Immature Granulocytes % 0.5 % (0-4); Immature Platelets 5.9 % (1.1-6.1); Lymphocytes # 0.6 K/mcL (0.6-4.6); Lymphocytes % 5.7 %; Mean Corpuscular HGB Conc 29.1 g/dL (31.6-35.5); Mean Corpuscular Hemoglobin 25.6 pg (28.0-33.3); Monocytes # 0.1 K/mcL (0.0-1.3); Monocytes % 1.1 %; Neutrophils # 9.3 K/mcL (1.6-8.9); Platelet Count 195 K/mcL (140-400); Red Blood Count 3.01 M/mcL (4.19-5.50); Red Cell Distribution Width 17.2 % (11.5-14.5); Segmented Neutrophils % 92.7 %
[2020-12-25] MEDS: Budesonide/Formoterol 160/4.5 1 PUFF INH IH SCH ×2 (11:24→22:23)
[2020-12-25] MEDS ORDERED: Insulin DETEMIR 100 UNIT/ML X5UNITS SUBQ ONE ×2 (11:41→21:00)
[2020-12-25] MEDS: *HR* HYDROcodone/Acet 5/325 mg TABLET PO PRN ×2 (12:56→18:06)
[2020-12-25 13:49] LABS: Hematocrit 30.4 % (37.5-50.1); Hemoglobin 8.8 g/dL (12.9-16.9)
[2020-12-25 13:59] LABS: BUN/Creatinine Ratio 35 (6-26); Blood Urea Nitrogen 37 mg/dL (8-23); Calcium 9.2 mg/dL (8.6-10.3); Carbon Dioxide 41 mEq/L (23-29); Chloride 97 mEq/L (98-107); Glucose 237 mg/dL (70-105); Osmolality,Calculated 304 (280-300); Potassium 4.8 mEq/L (3.5-5.1); Sodium 139 mEq/L (136-145); eGFR For African Americans > 60 (> 60); eGFR For Non-African Americans > 60 (> 60)
[2020-12-25] MEDS: QUEtiapine Fumarate 300 MG TABLET PO SCH (20:24)
[2020-12-25] MEDS: Melatonin 3 MG TABLET PO PRN (20:25)
[2020-12-25] MEDS ORDERED: *HR* LORazepam 2 MG/ML VIAL IVP ONE (20:46)
[2020-12-26] MEDS: MethylPREDNISolone 40 MG/ML VIAL IVP SCH ×2 (00:49→04:41)
[2020-12-26] MEDS: Vancomycin 1,500 MG/265 ML IV.SOLN IVPB SCH (00:49)
[2020-12-26] MEDS: Piperacillin/Tazobactam 3.375 GM in 0.9 % Sodium Chloride Mini Bag 100 ML IVPB SCH (04:42)
[2020-12-26] MEDS: Ipratropium/Albuterol Neb 3 ML IH SCH ×4 (04:47→20:50)
[2020-12-26 05:02] LABS: Hematocrit 26.5 % (37.5-50.1); Hemoglobin 7.9 g/dL (12.9-16.9); Immature Granulocytes % 0.5 % (0-4); Lymphocytes # 0.7 K/mcL (0.6-4.6); Lymphocytes % 6.6 %; Mean Corpuscular HGB Conc 29.8 g/dL (31.6-35.5); Mean Corpuscular Hemoglobin 26.2 pg (28.0-33.3); Mean Platelet Volume 11.9 fL (9.4-12.4); Monocytes # 0.3 K/mcL (0.0-1.3); Monocytes % 2.8 %; Neutrophils # 8.8 K/mcL (1.6-8.9); Platelet Count 228 K/mcL (140-400); Red Blood Count 3.01 M/mcL (4.19-5.50); Red Cell Distribution Width 17.3 % (11.5-14.5); Segmented Neutrophils % 90.1 %; White Blood Count 9.8 K/mcL (4.3-11.1)
[2020-12-26 05:21] LABS: ABG Base Excess 15 mEq/L (-2 to 3); ABG HCO3 43 mEq/L (21-27); ABG Oxygen Saturation 97 % (95-98); ABG PCO2 84 mmHg (35-45); ABG PH 7.32 pH Units (7.32-7.45); ABG PO2 104 mmHg (85-104); ABG TCO2 46 mEq/L (20-26); Blood Gas Modality BiLevel; Blood Gas Pressure Support 8 cm H2O
[2020-12-26 05:30] LABS: BUN/Creatinine Ratio 38 (6-26); Blood Urea Nitrogen 45 mg/dL (8-23); Carbon Dioxide 41 mEq/L (23-29); Chloride 97 mEq/L (98-107); Glucose 254 mg/dL (70-105); Osmolality,Calculated 312 (280-300); Potassium 4.8 mEq/L (3.5-5.1); Sodium 141 mEq/L (136-145); eGFR For African Americans > 60 (> 60); eGFR For Non-African Americans > 60 (> 60)
[2020-12-26] MEDS: Apixaban 5 MG TABLET PO SCH ×2 (09:20→21:00)
[2020-12-26] MEDS: Finasteride 5 MG TABLET PO SCH (09:20)
[2020-12-26] MEDS: Cholecalciferol (D-3) 1,000 UNIT (25MCG) TABLET PO SCH (09:20)
[2020-12-26] MEDS: Aspirin Enteric Coated 81 MG Tablet PO SCH (09:20)
[2020-12-26] MEDS: lisinopriL 5 MG TABLET PO SCH (09:21)
[2020-12-26] MEDS: Multivit/Ca/Min/Fe/FA 1 TAB TABLET PO SCH (09:21)
[2020-12-26] MEDS: Insulin LISPRO 300 UNITS/3 ML VIAL SUBQ SCH ×6 (09:21→21:01)
[2020-12-26] MEDS: Nicotine 14 MG PATCH.TD24 TD SCH (09:21)
[2020-12-26] MEDS: Budesonide/Formoterol 160/4.5 1 PUFF INH IH SCH ×2 (10:01→20:50)
[2020-12-26 12:33] LABS: Hematocrit 28.5 % (37.5-50.1); Hemoglobin 8.3 g/dL (12.9-16.9)
[2020-12-26] MEDS: *HR* HYDROcodone/Acet 5/325 mg TABLET PO PRN (13:05)
[2020-12-26] MEDS ORDERED: predniSONE 20 MG TABLET PO SCH (17:00)
[2020-12-26] MEDS: QUEtiapine Fumarate 300 MG TABLET PO SCH (21:00)
[2020-12-26] MEDS: Insulin DETEMIR 100 UNIT/ML X5UNITS SUBQ SCH (21:02)
[2020-12-27] MEDS: Ipratropium/Albuterol Neb 3 ML IH SCH ×4 (04:06→23:00)
[2020-12-27 06:22] LABS: Basophils % 0.1 %; Eosinophils % 0.3 %; Hematocrit 30.3 % (37.5-50.1); Hemoglobin 8.7 g/dL (12.9-16.9); Immature Granulocytes % 0.5 % (0-4); Lymphocytes # 2.9 K/mcL (0.6-4.6); Lymphocytes % 24.1 %; Mean Corpuscular HGB Conc 28.7 g/dL (31.6-35.5); Mean Corpuscular Hemoglobin 25.6 pg (28.0-33.3); Mean Corpuscular Volume 89.1 fL (83.0-100.0); Mean Platelet Volume 12.1 fL (9.4-12.4); Monocytes # 0.7 K/mcL (0.0-1.3); Monocytes % 6.2 %; Neutrophils # 8.2 K/mcL (1.6-8.9); Nucleated Red Blood Cells 0.2 /100 WBC (0); Platelet Count 250 K/mcL (140-400); Red Cell Distribution Width 17.5 % (11.5-14.5); Segmented Neutrophils % 68.8 %; White Blood Count 11.9 K/mcL (4.3-11.1)
[2020-12-27 06:26] LABS: BUN/Creatinine Ratio 50 (6-26); Blood Urea Nitrogen 48 mg/dL (8-23); Calcium 9.5 mg/dL (8.6-10.3); Carbon Dioxide 45 mEq/L (23-29); Chloride 97 mEq/L (98-107); Glucose 180 mg/dL (70-105); Osmolality,Calculated 311 (280-300); Potassium 4.4 mEq/L (3.5-5.1); Sodium 142 mEq/L (136-145); eGFR For African Americans > 60 (> 60); eGFR For Non-African Americans > 60 (> 60)
[2020-12-27] MEDS: Insulin LISPRO 300 UNITS/3 ML VIAL SUBQ SCH ×7 (07:56→20:44)
[2020-12-27] MEDS: Nicotine 14 MG PATCH.TD24 TD SCH (07:56)
[2020-12-27] MEDS: Doxycycline 100 MG CAPSULE PO SCH ×2 (07:57→20:54)
[2020-12-27] MEDS: Multivit/Ca/Min/Fe/FA 1 TAB TABLET PO SCH (07:57)
[2020-12-27] MEDS: Cholecalciferol (D-3) 1,000 UNIT (25MCG) TABLET PO SCH (07:57)
[2020-12-27] MEDS: lisinopriL 5 MG TABLET PO SCH (07:57)
[2020-12-27] MEDS: Apixaban 5 MG TABLET PO SCH ×2 (07:57→20:54)
[2020-12-27] MEDS: *HR* HYDROcodone/Acet 5/325 mg TABLET PO PRN ×2 (07:57→20:53)
[2020-12-27] MEDS: Finasteride 5 MG TABLET PO SCH (07:58)
[2020-12-27] MEDS: Aspirin Enteric Coated 81 MG Tablet PO SCH (07:58)
[2020-12-27] MEDS: predniSONE 20 MG TABLET PO SCH (07:58)
[2020-12-27] MEDS: Budesonide/Formoterol 160/4.5 1 PUFF INH IH SCH ×2 (09:39→23:00)
[2020-12-27] MEDS: QUEtiapine Fumarate 300 MG TABLET PO SCH (20:54)
[2020-12-27] MEDS: Insulin DETEMIR 100 UNIT/ML X5UNITS SUBQ SCH (20:54)
[2020-12-27] MEDS: Piperacillin/Tazobactam 3.375 GM in 0.9 % Sodium Chloride Mini Bag 100 ML IVPB SCH ×2 (21:06→21:08)
[2020-12-27] MEDS ORDERED: *HR* LORazepam 0.5 MG TABLET PO ONE (23:07)
[2020-12-28] MEDS: Ipratropium/Albuterol Neb 3 ML IH SCH ×4 (04:52→21:38)
[2020-12-28 04:58] LABS: Hematocrit 26.7 % (37.5-50.1); Hemoglobin 7.8 g/dL (12.9-16.9); Mean Corpuscular HGB Conc 29.2 g/dL (31.6-35.5); Mean Corpuscular Hemoglobin 25.8 pg (28.0-33.3); Mean Corpuscular Volume 88.4 fL (83.0-100.0); Mean Platelet Volume 11.5 fL (9.4-12.4); Platelet Count 212 K/mcL (140-400); Red Blood Count 3.02 M/mcL (4.19-5.50); Red Cell Distribution Width 17.1 % (11.5-14.5)
[2020-12-28 05:15] LABS: BUN/Creatinine Ratio 51 (6-26); Blood Urea Nitrogen 48 mg/dL (8-23); Carbon Dioxide 45 mEq/L (23-29); Chloride 97 mEq/L (98-107); Glucose 179 mg/dL (70-105); Osmolality,Calculated 309 (280-300); Potassium 4.4 mEq/L (3.5-5.1); Sodium 141 mEq/L (136-145); eGFR For African Americans > 60 (> 60); eGFR For Non-African Americans > 60 (> 60)
[2020-12-28] MEDS: Insulin LISPRO 300 UNITS/3 ML VIAL SUBQ SCH ×7 (08:40→21:59)
[2020-12-28] MEDS: predniSONE 20 MG TABLET PO SCH (10:10)
[2020-12-28] MEDS: Doxycycline 100 MG CAPSULE PO SCH ×2 (10:10→21:50)
[2020-12-28] MEDS: Cholecalciferol (D-3) 1,000 UNIT (25MCG) TABLET PO SCH (10:10)
[2020-12-28] MEDS: lisinopriL 5 MG TABLET PO SCH (10:11)
[2020-12-28] MEDS: Finasteride 5 MG TABLET PO SCH (10:11)
[2020-12-28] MEDS: Apixaban 5 MG TABLET PO SCH ×2 (10:11→21:50)
[2020-12-28] MEDS: Aspirin Enteric Coated 81 MG Tablet PO SCH (10:11)
[2020-12-28] MEDS: Nicotine 14 MG PATCH.TD24 TD SCH (10:11)
[2020-12-28] MEDS: Multivit/Ca/Min/Fe/FA 1 TAB TABLET PO SCH (10:12)
[2020-12-28] MEDS: Budesonide/Formoterol 160/4.5 1 PUFF INH IH SCH ×2 (12:21→21:36)
[2020-12-28 17:07] LABS: Hematocrit 30.2 % (37.5-50.1)
[2020-12-28] MEDS: *HR* HYDROcodone/Acet 5/325 mg TABLET PO PRN (21:51)
[2020-12-28] MEDS: QUEtiapine Fumarate 300 MG TABLET PO SCH (21:51)
[2020-12-28] MEDS: Insulin DETEMIR 100 UNIT/ML X5UNITS SUBQ SCH (22:00)
[2020-12-28] MEDS ORDERED: *HR* LORazepam 0.5 MG TABLET PO PRN (22:39)
[2020-12-29] MEDS: Ipratropium/Albuterol Neb 3 ML IH SCH ×3 (03:15→15:33)
[2020-12-29 06:28] LABS: Hematocrit 27.9 % (37.5-50.1); Hemoglobin 8.1 g/dL (12.9-16.9); Mean Corpuscular Hemoglobin 24.8 pg (28.0-33.3); Mean Corpuscular Volume 85.6 fL (83.0-100.0); Mean Platelet Volume 11.8 fL (9.4-12.4); Platelet Count 245 K/mcL (140-400); Red Blood Count 3.26 M/mcL (4.19-5.50); Red Cell Distribution Width 17.2 % (11.5-14.5); White Blood Count 13.6 K/mcL (4.3-11.1)
[2020-12-29 07:14] LABS: BUN/Creatinine Ratio 54 (6-26); Blood Urea Nitrogen 47 mg/dL (8-23); Calcium 9.4 mg/dL (8.6-10.3); Carbon Dioxide 42 mEq/L (23-29); Chloride 97 mEq/L (98-107); Glucose 149 mg/dL (70-105); Osmolality,Calculated 305 (280-300); Potassium 4.5 mEq/L (3.5-5.1); Sodium 140 mEq/L (136-145); eGFR For African Americans > 60 (> 60); eGFR For Non-African Americans > 60 (> 60)
[2020-12-29] MEDS: Insulin LISPRO 300 UNITS/3 ML VIAL SUBQ SCH ×4 (08:22→12:35)
[2020-12-29] MEDS: Finasteride 5 MG TABLET PO SCH (08:26)
[2020-12-29] MEDS: Apixaban 5 MG TABLET PO SCH (08:27)
[2020-12-29] MEDS: Cholecalciferol (D-3) 1,000 UNIT (25MCG) TABLET PO SCH (08:27)
[2020-12-29] MEDS: lisinopriL 5 MG TABLET PO SCH (08:27)
[2020-12-29] MEDS: Doxycycline 100 MG CAPSULE PO SCH (08:27)
[2020-12-29] MEDS: Multivit/Ca/Min/Fe/FA 1 TAB TABLET PO SCH (08:27)
[2020-12-29] MEDS: Aspirin Enteric Coated 81 MG Tablet PO SCH (08:27)
[2020-12-29] MEDS: predniSONE 20 MG TABLET PO SCH (08:28)
[2020-12-29] MEDS: *HR* HYDROcodone/Acet 5/325 mg TABLET PO PRN (08:33)
[2020-12-29] MEDS: Nicotine 14 MG PATCH.TD24 TD SCH (08:34)
[2020-12-29] MEDS: Budesonide/Formoterol 160/4.5 1 PUFF INH IH SCH (11:16)
[2020-12-29 11:47] VITALS: BP 160/95; PULSE 101; TEMP 98.4; O2SAT 94
[2020-12-29 13:10] LABS: Influenza A PCR Negative (Negative); Influenza B PCR Negative (Negative); Resp. Syncytial Virus PCR Negative (Negative)
[2020-12-29 13:11] LABS: SARS-CoV-2 by PCR (In House) Negative (Negative)
== END 2020-12-29 14:35 | DRG 193 ==
LOC: EMEROOARM 23:10 → CDU 23:10 → SUATTDRO 12-24 03:21 → CDU 12-24 04:10 → SUATTDRO 12-24 16:06 → 3NENU 12-24 17:38
PROVIDERS: ADMIT Family Medicine; ATTEND Internal Medicine

== ENCOUNTER 2021-02-13 23:08 | Inpatient (IN) ==
[2021-02-14] MEDS ORDERED: Naloxone 0.4 MG/ML INJ IVP PRN (03:49)
[2021-02-14] MEDS ORDERED: Melatonin 3 MG TABLET PO PRN (03:49)
[2021-02-14] MEDS ORDERED: Acetaminophen 325 MG TABLET PO PRN (03:49)
[2021-02-14] MEDS ORDERED: Ondansetron 4 MG/2 ML VIAL IVP PRN (03:49)
[2021-02-14] MEDS ORDERED: Ipratropium/Albuterol Neb 3 ML IH PRN (03:58)
[2021-02-14 04:22] LABS: VBG HCO3 34 mEq/L (21-27); VBG PCO2 60 mmHg (41-51); VBG PH 7.36 pH Units (7.32-7.42); VBG PO2 71 mmHg (25-50)
[2021-02-14 04:37] LABS: BUN/Creatinine Ratio 41 (6-26); Blood Urea Nitrogen 47 mg/dL (8-23); Calcium 8.9 mg/dL (8.6-10.3); Carbon Dioxide 33 mEq/L (23-29); Chloride 94 mEq/L (98-107); Chol/HDL Ratio 2.4 (0-4.9); Glucose 453 mg/dL (70-105); Magnesium 1.8 mg/dL (1.6-2.6); Osmolality,Calculated 310 (280-300); Potassium 5.8 mEq/L (3.5-5.1); Sodium 134 mEq/L (136-145); eGFR For African Americans > 60 (> 60); eGFR For Non-African Americans > 60 (> 60)
[2021-02-14 04:39] LABS: Hemoglobin 8.1 g/dL (12.9-16.9); Nucleated Red Blood Cells 0.2 /100 WBC (0)
[2021-02-14 04:42] LABS: Basophils # 0.1 K/mcL (0.0-0.2); Basophils % 0.5 %; Eosinophils # 0.1 K/mcL (0.0-0.6); Eosinophils % 0.9 %; Immature Granulocytes % 4.1 % (0-4); Lymphocytes # 0.5 K/mcL (0.6-4.6); Lymphocytes % 4.8 %; Mean Corpuscular HGB Conc 27.9 g/dL (31.6-35.5); Mean Corpuscular Hemoglobin 24.8 pg (28.0-33.3); Mean Corpuscular Volume 88.7 fL (83.0-100.0); Mean Platelet Volume 12.1 fL (9.4-12.4); Monocytes # 0.1 K/mcL (0.0-1.3); Monocytes % 0.7 %; Platelet Count 226 K/mcL (140-400); Red Blood Count 3.27 M/mcL (4.19-5.50); Red Cell Distribution Width 16.8 % (11.5-14.5); White Blood Count 11.2 K/mcL (4.3-11.1)
[2021-02-14 04:50] LABS: INR 1.2; Prothrombin Time 13.5 Seconds (9.4-12.1)
[2021-02-14] MEDS ORDERED: Insulin Human Regular 10 UNIT in 0.9 % Sodium Chloride 10 ML IV ONE (05:33)
[2021-02-14 05:38] LABS: Hypochromasia Present (Not Present); Platelet Estimate Normal (Normal); Stomatocytes 1+ (Not Present)
[2021-02-14] MEDS ORDERED: Hydrocortisone Sodium Succ 100 MG/2 ML VIAL IVP ONE ×2 (05:42→09:45)
[2021-02-14] MEDS: Nicotine 21 MG PATCH.TD24 TD SCH (05:47)
[2021-02-14] MEDS: *HR* LORazepam 1 MG TABLET PO PRN (05:58)
[2021-02-14] MEDS ORDERED: SODIUM ZIRCONIUM CYCLOSILICATE 5 GM POWD.PACK PO ONE (06:00)
[2021-02-14] MEDS ORDERED: Dextrose Gel 15 GM/37.5 ML TUBE PO PRN ×2 (06:08)
[2021-02-14] MEDS ORDERED: *HR* Dextrose 50 % in Water (Syg) 50 ML SYRINGE IVP PRN (06:08)
[2021-02-14] MEDS ORDERED: D5% in Water 1,000 ML IVC PRN (06:08)
[2021-02-14] MEDS: Budesonide/Formoterol 160/4.5 1 PUFF INH IH SCH ×2 (07:24→20:40)
[2021-02-14] MEDS: Aspirin Enteric Coated 81 MG Tablet PO SCH (09:02)
[2021-02-14] MEDS: Apixaban 5 MG TABLET PO SCH ×2 (09:02→20:59)
[2021-02-14] MEDS: Insulin LISPRO 300 UNITS/3 ML VIAL SUBQ SCH ×7 (09:02→21:03)
[2021-02-14] MEDS: MethylPREDNISolone 40 MG/ML VIAL IVP SCH ×3 (09:02→23:52)
[2021-02-14] MEDS: *HR* HYDROcodone/Acet 5/325 mg TABLET PO PRN ×3 (09:05→21:28)
[2021-02-14] MEDS: Insulin DETEMIR 100 UNIT/ML X5UNITS SUBQ SCH (21:02)
[2021-02-15 03:00] LABS: Basophils % 0.1 %; Hematocrit 26.9 % (37.5-50.1); Immature Granulocytes % 1.3 % (0-4); Lymphocytes # 0.7 K/mcL (0.6-4.6); Lymphocytes % 5.4 %; Mean Corpuscular HGB Conc 29.7 g/dL (31.6-35.5); Mean Corpuscular Hemoglobin 25.5 pg (28.0-33.3); Mean Corpuscular Volume 85.7 fL (83.0-100.0); Mean Platelet Volume 11.7 fL (9.4-12.4); Monocytes # 0.3 K/mcL (0.0-1.3); Monocytes % 2.3 %; Neutrophils # 11.3 K/mcL (1.6-8.9); Nucleated Red Blood Cells 0.2 /100 WBC (0); Platelet Count 224 K/mcL (140-400); Red Blood Count 3.14 M/mcL (4.19-5.50); Red Cell Distribution Width 16.8 % (11.5-14.5); Segmented Neutrophils % 90.9 %; White Blood Count 12.4 K/mcL (4.3-11.1)
[2021-02-15 03:16] LABS: Calcium 9.1 mg/dL (8.6-10.3); Potassium 5.4 mEq/L (3.5-5.1)
[2021-02-15] MEDS: Nicotine 21 MG PATCH.TD24 TD SCH (05:48)
[2021-02-15] MEDS: Budesonide/Formoterol 160/4.5 1 PUFF INH IH SCH ×2 (07:46→19:49)
[2021-02-15] MEDS: Apixaban 5 MG TABLET PO SCH ×2 (07:52→19:33)
[2021-02-15] MEDS: Aspirin Enteric Coated 81 MG Tablet PO SCH (07:52)
[2021-02-15] MEDS: MethylPREDNISolone 40 MG/ML VIAL IVP SCH ×3 (07:52→23:25)
[2021-02-15] MEDS: Insulin LISPRO 300 UNITS/3 ML VIAL SUBQ SCH ×7 (07:53→19:34)
[2021-02-15] MEDS: *HR* HYDROcodone/Acet 5/325 mg TABLET PO PRN ×2 (07:59→19:33)
[2021-02-15] MEDS: *HR* LORazepam 1 MG TABLET PO PRN ×2 (08:52→19:33)
[2021-02-15] MEDS: 0.9 % Sodium Chloride 1,000 ML IVC SCH (12:46)
[2021-02-15] MEDS: Insulin DETEMIR 100 UNIT/ML X5UNITS SUBQ SCH (19:33)
[2021-02-16] MEDS ORDERED: *HR* OxyCODONE/APAP 5/325 TABLET PO ONE (00:36)
[2021-02-16] MEDS: 0.9 % Sodium Chloride 1,000 ML IVC SCH ×2 (01:52→20:11)
[2021-02-16] MEDS: Nicotine 21 MG PATCH.TD24 TD SCH (02:38)
[2021-02-16] MEDS: Insulin LISPRO 300 UNITS/3 ML VIAL SUBQ SCH ×7 (08:00→19:54)
[2021-02-16 09:55] LABS: BUN/Creatinine Ratio 50 (6-26); Blood Urea Nitrogen 66 mg/dL (8-23); Calcium 9.1 mg/dL (8.6-10.3); Carbon Dioxide 36 mEq/L (23-29); Chloride 98 mEq/L (98-107); Glucose 442 mg/dL (70-105); Osmolality,Calculated 320 (280-300); Potassium 5.4 mEq/L (3.5-5.1); Sodium 136 mEq/L (136-145); eGFR For African Americans > 60 (> 60); eGFR For Non-African Americans 55 (> 60)
[2021-02-16] MEDS: Budesonide/Formoterol 160/4.5 1 PUFF INH IH SCH ×2 (10:31→20:10)
[2021-02-16 11:04] VITALS: BP 107/86
[2021-02-16] MEDS: Aspirin Enteric Coated 81 MG Tablet PO SCH (11:18)
[2021-02-16] MEDS: Apixaban 5 MG TABLET PO SCH ×2 (11:18→19:52)
[2021-02-16] MEDS: MethylPREDNISolone 40 MG/ML VIAL IVP SCH ×2 (11:18→19:53)
[2021-02-16] MEDS ORDERED: MOM Conc 10 ML UD.LIQ PO PRN (11:38)
[2021-02-16] MEDS ORDERED: Ipratropium/Albuterol Neb 3 ML IH PRN (11:38)
[2021-02-16] MEDS ORDERED: Finasteride 5 MG TABLET PO SCH (11:45)
[2021-02-16 14:13] LABS: Adenovirus Not Detected (Not Detect); Bordetella Pertussis Not Detected (Not Detect); Chlamydophila pneumoniae Not Detected (Not Detect); Coronavirus 229E Not Detected (Not Detect); Coronavirus HKU1 Not Detected (Not Detect); Coronavirus NL63 Not Detected (Not Detect); Coronavirus OC43 Not Detected (Not Detect); Human Metapneumovirus Not Detected (Not Detect); Human Rhinovirus/Enterovirus Not Detected (Not Detect); Influenza A Subtype 2009 H1 Not Detected (Not Detect); Influenza B Not Detected (Not Detect); Mycoplasma pneumoniae Not Detected (Not Detect); Parainfluenza Virus 1 Not Detected (Not Detect); Parainfluenza Virus 2 Not Detected (Not Detect); Parainfluenza Virus 3 Not Detected (Not Detect); Parainfluenza Virus 4 Not Detected (Not Detect); Respiratory Syncytial Virus Not Detected (Not Detect); SARS-CoV-2 Not Detected (Not Detect)
[2021-02-16 20:03] VITALS: PULSE 74; TEMP 98; O2SAT 95
[2021-02-16] MEDS: Insulin DETEMIR 100 UNIT/ML X5UNITS SUBQ SCH (20:09)
[2021-02-17] MEDS ORDERED: Cholecalciferol (D-3) 1,000 UNIT (25MCG) TABLET PO SCH (09:00)
== END 2021-02-16 22:00 | DRG 190 ==
LOC: 3NENU → SUATTDRO 02-14 01:18
PROVIDERS: ADMIT Internal Medicine; ATTEND Hospitalist

== ENCOUNTER 2021-03-10 17:47 | Inpatient (IN) ==
[2021-03-10] MEDS ORDERED: Ondansetron 4 MG/2 ML VIAL IVP PRN (23:00)
[2021-03-10] MEDS ORDERED: Acetaminophen 325 MG TABLET PO PRN (23:00)
[2021-03-10] MEDS ORDERED: 0.9 % Sodium Chloride 1,000 ML IVC SCH (23:00)
[2021-03-10] MEDS ORDERED: Naloxone 0.4 MG/ML INJ IVP PRN (23:00)
[2021-03-10] MEDS ORDERED: Melatonin 3 MG TABLET PO PRN (23:00)
[2021-03-10] MEDS ORDERED: D5% in Water 1,000 ML IVC PRN (23:10)
[2021-03-10] MEDS ORDERED: *HR* Dextrose 50 % in Water (Syg) 50 ML SYRINGE IVP PRN (23:10)
[2021-03-10] MEDS ORDERED: Dextrose Gel 15 GM/37.5 ML TUBE PO PRN ×2 (23:10)
[2021-03-11 00:13] LABS: ABG Base Excess 0 mEq/L (-2 to 3); ABG HCO3 30 mEq/L (21-27); ABG Oxygen Saturation 49 % (95-98); ABG PCO2 82 mmHg (35-45); ABG PH 7.16 pH Units (7.32-7.45); ABG PO2 35 mmHg (85-104); ABG TCO2 32 mEq/L (20-26); Blood Gas Pressure Support 16 cm H2O
[2021-03-11] MEDS: Ipratropium/Albuterol Neb 3 ML IH SCH ×7 (00:16→23:26)
[2021-03-11 00:37] LABS: Hemoglobin 7.7 g/dL (12.9-16.9); Red Cell Distribution Width 17.2 % (11.5-14.5)
[2021-03-11 00:38] LABS: Mean Corpuscular HGB Conc 28.5 g/dL (31.6-35.5); Mean Corpuscular Hemoglobin 25.1 pg (28.0-33.3); Mean Corpuscular Volume 87.9 fL (83.0-100.0); Mean Platelet Volume 11.8 fL (9.4-12.4); Platelet Count 235 K/mcL (140-400); Red Blood Count 3.07 M/mcL (4.19-5.50); White Blood Count 12.4 K/mcL (4.3-11.1)
[2021-03-11 00:44] LABS: ABG Base Excess 0 mEq/L (-2 to 3); ABG HCO3 29 mEq/L (21-27); ABG Oxygen Saturation 97 % (95-98); ABG PCO2 76 mmHg (35-45); ABG PH 7.19 pH Units (7.32-7.45); ABG PO2 112 mmHg (85-104); ABG TCO2 31 mEq/L (20-26); Blood Gas Pressure Support 16 cm H2O
[2021-03-11] MEDS ORDERED: *HR* LORazepam 2 MG/ML VIAL IVP ONE (01:19)
[2021-03-11] MEDS: MethylPREDNISolone 40 MG/ML VIAL IVP SCH ×5 (01:36→23:02)
[2021-03-11] MEDS: Insulin LISPRO 300 UNITS/3 ML VIAL SUBQ SCH ×5 (01:36→23:17)
[2021-03-11 01:45] LABS: Hemoglobin 7.6 g/dL (12.9-16.9); Red Cell Distribution Width 17.3 % (11.5-14.5)
[2021-03-11 01:46] LABS: Hematocrit 26.9 % (37.5-50.1); Mean Corpuscular HGB Conc 28.3 g/dL (31.6-35.5); Mean Corpuscular Hemoglobin 24.8 pg (28.0-33.3); Mean Corpuscular Volume 87.6 fL (83.0-100.0); Mean Platelet Volume 12.5 fL (9.4-12.4); Platelet Count 248 K/mcL (140-400); Red Blood Count 3.07 M/mcL (4.19-5.50); White Blood Count 11.8 K/mcL (4.3-11.1)
[2021-03-11 02:00] LABS: Calcium 8.1 mg/dL (8.6-10.3); Potassium 6.8 mEq/L (3.5-5.1)
[2021-03-11] MEDS ORDERED: Insulin Human Regular 10 UNIT in 0.9 % Sodium Chloride 10 ML IV ONE ×2 (02:41→22:09)
[2021-03-11] MEDS ORDERED: *HR* Dextrose 50 % in Water (Vial) 50 ML VIAL IVP ONE (02:41)
[2021-03-11] MEDS: Apixaban 5 MG TABLET PO SCH ×2 (03:16→20:02)
[2021-03-11] MEDS ORDERED: SODIUM ZIRCONIUM CYCLOSILICATE 5 GM POWD.PACK PO SCH ×4 (05:03→21:00)
[2021-03-11 05:54] LABS: ABG Base Excess 0 mEq/L (-2 to 3); ABG HCO3 29 mEq/L (21-27); ABG Oxygen Saturation 94 % (95-98); ABG PCO2 84 mmHg (35-45); ABG PH 7.15 pH Units (7.32-7.45); ABG PO2 96 mmHg (85-104); ABG TCO2 32 mEq/L (20-26); Blood Gas Pressure Support 16 cm H2O
[2021-03-11 07:19] LABS: Potassium 6.2 mEq/L (3.5-5.1)
[2021-03-11] MEDS ORDERED: Aspirin Enteric Coated 81 MG Tablet PO SCH (09:00)
[2021-03-11] MEDS ORDERED: Azithromycin 500 MG in 0.9 % Sodium Chloride 250 ML IVPB SCH (09:00)
[2021-03-11] MEDS ORDERED: Naloxone 0.4 MG/ML INJ IVP PRN (10:12)
[2021-03-11] MEDS ORDERED: Melatonin 3 MG TABLET PO PRN (10:12)
[2021-03-11] MEDS ORDERED: Acetaminophen 325 MG TABLET PO PRN (10:12)
[2021-03-11] MEDS ORDERED: 0.9 % Sodium Chloride 1,000 ML IVC SCH (10:12)
[2021-03-11] MEDS ORDERED: *HR* Dextrose 50 % in Water (Syg) 50 ML SYRINGE IVP PRN (10:12)
[2021-03-11] MEDS ORDERED: Ondansetron 4 MG/2 ML VIAL IVP PRN (10:12)
[2021-03-11] MEDS ORDERED: D5% in Water 1,000 ML IVC PRN (10:12)
[2021-03-11] MEDS ORDERED: Dextrose Gel 15 GM/37.5 ML TUBE PO PRN ×2 (10:12)
[2021-03-11] MEDS ORDERED: Dexmedetomidine HCl 400 MCG/100 ML MLS IVC ONE (10:26)
[2021-03-11 10:37] LABS: ABG Base Excess 2 mEq/L (-2 to 3); ABG HCO3 32 mEq/L (21-27); ABG Oxygen Saturation 95 % (95-98); ABG PCO2 100 mmHg (35-45); ABG PH 7.12 pH Units (7.32-7.45); ABG PO2 105 mmHg (85-104); ABG TCO2 35 mEq/L (20-26); Blood Gas VT 450 cc
[2021-03-11] MEDS: Dexmedetomidine HCl 400 MCG/100 ML MLS IVC SCH ×3 (11:03→22:00)
[2021-03-11 11:58] LABS: Protein/Creatinine Ratio,Urine 0.87 mg/mg (0.00-0.20); Sodium, Urine 31.9 mEq/L
[2021-03-11 12:09] LABS: Bilirubin,Urine Negative (Negative); Blood,Urine Negative (Negative); Clarity,Urine Clear (Clear); Color,Urine Yellow (Yellow); Glucose,Urine (UA) Normal (Normal); Ketones,Urine Negative (Negative); Leukocyte Esterase,Urine Negative (Negative); Nitrite,Urine Negative (Negative); PH,Urine 5.5 pH Units (5.0-8.0); Protein,Urine 30 mg/dL (Neg-Trace); Urobilinogen,Urine Normal (Normal)
[2021-03-11 12:19] LABS: Squamous Epithelial Cell,Urine Few per hpf (None-Few); WBC,Urine 0-3 per hpf (0-3)
[2021-03-11 12:20] LABS: Mucus,Urine Few per lpf (None-Few)
[2021-03-11 12:21] LABS: Amorphous Sediment,Urine Few per hpf (None-Few)
[2021-03-11 12:30] LABS: ABG Base Excess 2 mEq/L (-2 to 3); ABG HCO3 32 mEq/L (21-27); ABG Oxygen Saturation 90 % (95-98); ABG PCO2 88 mmHg (35-45); ABG PH 7.16 pH Units (7.32-7.45); ABG PO2 77 mmHg (85-104); ABG TCO2 34 mEq/L (20-26); Blood Gas VT 500 cc
[2021-03-11 15:22] LABS: Calcium 8.4 mg/dL (8.6-10.3); Potassium 6.3 mEq/L (3.5-5.1)
[2021-03-11] MEDS ORDERED: cefTRIAXone 1,000 MG in 0.9 % Sodium Chloride Mini Bag 100 ML IVPB SCH (16:00)
[2021-03-11 17:08] LABS: ABG Base Excess 2 mEq/L (-2 to 3); ABG HCO3 31 mEq/L (21-27); ABG Oxygen Saturation 92 % (95-98); ABG PCO2 79 mmHg (35-45); ABG PO2 79 mmHg (85-104); ABG TCO2 34 mEq/L (20-26); Blood Gas VT 500 cc
[2021-03-11] MEDS: Cefepime HCl 1,000 MG in 0.9 % Sodium Chloride Mini Bag 100 ML IVPB SCH (19:35)
[2021-03-11 20:29] LABS: ABG Base Excess 3 mEq/L (-2 to 3); ABG HCO3 32 mEq/L (21-27); ABG Oxygen Saturation 95 % (95-98); ABG PCO2 78 mmHg (35-45); ABG PH 7.22 pH Units (7.32-7.45); ABG PO2 94 mmHg (85-104); ABG TCO2 34 mEq/L (20-26); Blood Gas VT 500 cc
[2021-03-11 20:59] LABS: Calcium 8.4 mg/dL (8.6-10.3); Magnesium 2.6 mg/dL (1.6-2.6); Potassium 6.4 mEq/L (3.5-5.1)
[2021-03-11] MEDS: SODIUM ZIRCONIUM CYCLOSILICATE 5 GM POWD.PACK PO SCH (21:12)
[2021-03-11] MEDS ORDERED: Calcium Gluconate 1gm/50mL 1 GM/50 ML BAG IVPB PRN (22:08)
[2021-03-11] MEDS ORDERED: *HR* Dextrose 50 % in Water (Syg) 50 ML SYRINGE IVP ONE (22:10)
[2021-03-12 01:09] LABS: Basophils % 0.2 %; Hemoglobin 7.4 g/dL (12.9-16.9); Red Cell Distribution Width 16.8 % (11.5-14.5)
[2021-03-12 01:10] LABS: Hematocrit 26.2 % (37.5-50.1); Immature Granulocytes % 1.2 % (0-4); Lymphocytes # 0.7 K/mcL (0.6-4.6); Lymphocytes % 10.6 %; Mean Corpuscular HGB Conc 28.2 g/dL (31.6-35.5); Mean Corpuscular Hemoglobin 24.4 pg (28.0-33.3); Mean Corpuscular Volume 86.5 fL (83.0-100.0); Monocytes # 0.2 K/mcL (0.0-1.3); Monocytes % 3.5 %; Neutrophils # 5.5 K/mcL (1.6-8.9); Nucleated Red Blood Cells 0.5 /100 WBC (0); Platelet Count 249 K/mcL (140-400); Red Blood Count 3.03 M/mcL (4.19-5.50); Segmented Neutrophils % 84.5 %; White Blood Count 6.5 K/mcL (4.3-11.1)
[2021-03-12 01:31] LABS: Phosphorous 4.9 mg/dL (2.7-4.5); Uric Acid 10.2 mg/dL (2.3-7.6)
[2021-03-12 01:43] LABS: Thyroid Stimulating Hormone 0.247 mcIU/mL (0.340-5.600)
[2021-03-12 01:46] LABS: Hypochromasia Present (Not Present); Platelet Estimate Normal (Normal)
[2021-03-12 01:53] LABS: Folate 13.4 ng/mL (3.0-16.0)
[2021-03-12 01:54] LABS: Vitamin B12 654 pg/mL (250-1100); Vitamin D 25 Hydroxy 42 ng/mL (30-80)
[2021-03-12 02:27] LABS: Hepatitis B Surface Antigen Nonreactive (Nonreactive)
[2021-03-12 02:31] LABS: Albumin 3.3 g/dL (3.5-5.7); Albumin/Globulin Ratio 0.9 (1.1-2.2); Bilirubin,Total 0.2 mg/dL (0.3-1.0); Calcium 8.3 mg/dL (8.6-10.3); Globulin 3.7 g/dL (2.4-3.5); Potassium 6.1 mEq/L (3.5-5.1)
[2021-03-12] MEDS ORDERED: Calcium Gluconate 1gm/50mL 1 GM/50 ML BAG IVPB ONE ×2 (02:40→18:48)
[2021-03-12] MEDS ORDERED: Insulin Human Regular 10 UNIT in 0.9 % Sodium Chloride 10 ML IV ONE ×4 (02:40→23:11)
[2021-03-12] MEDS ORDERED: *HR* Dextrose 50 % in Water (Syg) 50 ML SYRINGE IVP ONE ×4 (02:42→23:12)
[2021-03-12 02:56] LABS: Hepatitis B Core IgM Nonreactive (Nonreactive); Hepatitis C Virus Antibody Nonreactive (Nonreactive)
[2021-03-12 02:58] LABS: Hepatitis A Antibody IgM Nonreactive (Nonreactive)
[2021-03-12] MEDS: Cefepime HCl 1,000 MG in 0.9 % Sodium Chloride Mini Bag 100 ML IVPB SCH (03:00)
[2021-03-12] MEDS: Dexmedetomidine HCl 400 MCG/100 ML MLS IVC SCH ×7 (03:23→22:40)
[2021-03-12] MEDS: SODIUM ZIRCONIUM CYCLOSILICATE 5 GM POWD.PACK PO SCH ×3 (03:25→21:30)
[2021-03-12] MEDS: Ipratropium/Albuterol Neb 3 ML IH SCH ×6 (03:38→23:55)
[2021-03-12 04:33] LABS: ABG Base Excess 3 mEq/L (-2 to 3); ABG HCO3 32 mEq/L (21-27); ABG Oxygen Saturation 88 % (95-98); ABG PCO2 80 mmHg (35-45); ABG PO2 70 mmHg (85-104); ABG TCO2 34 mEq/L (20-26); Blood Gas VT 500 cc
[2021-03-12] MEDS: Insulin LISPRO 300 UNITS/3 ML VIAL SUBQ SCH ×4 (05:02→23:54)
[2021-03-12] MEDS: MethylPREDNISolone 40 MG/ML VIAL IVP SCH ×4 (05:02→23:56)
[2021-03-12] MEDS: Azithromycin 500 MG in 0.9 % Sodium Chloride 250 ML IVPB SCH (08:05)
[2021-03-12] MEDS: Apixaban 5 MG TABLET PO SCH ×2 (08:06→21:24)
[2021-03-12] MEDS: Aspirin Enteric Coated 81 MG Tablet PO SCH (08:06)
[2021-03-12 08:25] LABS: ABG Base Excess 4 mEq/L (-2 to 3); ABG HCO3 33 mEq/L (21-27); ABG Oxygen Saturation 92 % (95-98); ABG PCO2 77 mmHg (35-45); ABG PH 7.24 pH Units (7.32-7.45); ABG PO2 79 mmHg (85-104); ABG TCO2 35 mEq/L (20-26); Blood Gas VT 500 cc
[2021-03-12] MEDS ORDERED: QUEtiapine Fumarate 25 MG TABLET PO ONE (08:38)
[2021-03-12] MEDS ORDERED: *HR* OxyCODONE/APAP 7.5/325 TABLET PO PRN (08:38)
[2021-03-12] MEDS ORDERED: SODIUM ZIRCONIUM CYCLOSILICATE 5 GM POWD.PACK PO SCH (09:00)
[2021-03-12] MEDS ORDERED: OLANZapine 10 MG VIAL IM ONE (09:15)
[2021-03-12 09:26] LABS: Hematocrit 28.2 % (37.5-50.1); Monocytes % 2.7 %
[2021-03-12 09:28] LABS: Basophils % 0.1 %; Immature Granulocytes % 1.5 % (0-4); Lymphocytes # 0.7 K/mcL (0.6-4.6); Lymphocytes % 8.8 %; Mean Corpuscular HGB Conc 28.4 g/dL (31.6-35.5); Mean Corpuscular Hemoglobin 24.6 pg (28.0-33.3); Mean Corpuscular Volume 86.8 fL (83.0-100.0); Mean Platelet Volume 12.5 fL (9.4-12.4); Monocytes # 0.2 K/mcL (0.0-1.3); Nucleated Red Blood Cells 0.4 /100 WBC (0); Platelet Count 272 K/mcL (140-400); Red Blood Count 3.25 M/mcL (4.19-5.50); Red Cell Distribution Width 16.7 % (11.5-14.5); Segmented Neutrophils % 86.9 %; White Blood Count 7.9 K/mcL (4.3-11.1)
[2021-03-12 09:44] LABS: Neutrophils # 6.9 K/mcL (1.6-8.9)
[2021-03-12 09:59] LABS: Calcium 8.7 mg/dL (8.6-10.3); Magnesium 2.5 mg/dL (1.6-2.6); Potassium 6.4 mEq/L (3.5-5.1)
[2021-03-12] MEDS: Cefepime HCl 1,000 MG in Water for inj. (sterile) 10 ML IVP SCH ×2 (11:09→17:44)
[2021-03-12] MEDS ORDERED: Furosemide 40 MG/4 ML VIAL IVP ONE ×3 (12:40→23:15)
[2021-03-12 14:48] LABS: Anisocytosis 1+ (Not Present); Large Platelets Present (Not Present); Platelet Estimate Normal (Normal)
[2021-03-12 18:43] LABS: Potassium 6.6 mEq/L (3.5-5.1)
[2021-03-12] MEDS ORDERED: QUEtiapine Fumarate 100 MG TABLET PO SCH (21:00)
[2021-03-12 23:07] LABS: Calcium 9.2 mg/dL (8.6-10.3); Potassium 6.6 mEq/L (3.5-5.1)
[2021-03-13] MEDS: Dexmedetomidine HCl 400 MCG/100 ML MLS IVC SCH ×4 (01:17→11:18)
[2021-03-13] MEDS: Cefepime HCl 1,000 MG in Water for inj. (sterile) 10 ML IVP SCH ×3 (01:22→18:02)
[2021-03-13] MEDS ORDERED: *HR* LORazepam 2 MG/ML VIAL IVP ONE (02:47)
[2021-03-13] MEDS: Ipratropium/Albuterol Neb 3 ML IH SCH ×6 (03:22→23:14)
[2021-03-13 04:56] LABS: VBG Ionized Calcium 1.26 mmol/L (1.15-1.35)
[2021-03-13 05:23] LABS: Basophils % 0.1 %; Hematocrit 26.9 % (37.5-50.1); Hemoglobin 7.8 g/dL (12.9-16.9); Immature Granulocytes % 1.5 % (0-4); Lymphocytes # 0.5 K/mcL (0.6-4.6); Lymphocytes % 5.5 %; Mean Corpuscular Hemoglobin 24.3 pg (28.0-33.3); Mean Corpuscular Volume 83.8 fL (83.0-100.0); Mean Platelet Volume 11.8 fL (9.4-12.4); Monocytes # 0.2 K/mcL (0.0-1.3); Monocytes % 2.4 %; Neutrophils # 7.6 K/mcL (1.6-8.9); Nucleated Red Blood Cells 0.5 /100 WBC (0); Platelet Count 242 K/mcL (140-400); Red Blood Count 3.21 M/mcL (4.19-5.50); Red Cell Distribution Width 16.9 % (11.5-14.5); Segmented Neutrophils % 90.5 %; White Blood Count 8.4 K/mcL (4.3-11.1)
[2021-03-13 05:31] LABS: Albumin 3.5 g/dL (3.5-5.7); Bilirubin,Total 0.3 mg/dL (0.3-1.0); Calcium 9.3 mg/dL (8.6-10.3); Globulin 3.6 g/dL (2.4-3.5); Magnesium 2.5 mg/dL (1.6-2.6); Phosphorous 4.4 mg/dL (2.7-4.5); Potassium 6.1 mEq/L (3.5-5.1); Total Protein 7.1 g/dL (6.4-8.9)
[2021-03-13] MEDS: Insulin LISPRO 300 UNITS/3 ML VIAL SUBQ SCH ×5 (05:36→23:48)
[2021-03-13] MEDS: MethylPREDNISolone 40 MG/ML VIAL IVP SCH ×4 (05:38→23:26)
[2021-03-13 05:52] LABS: ABG Base Excess 9 mEq/L (-2 to 3); ABG HCO3 37 mEq/L (21-27); ABG Oxygen Saturation 98 % (95-98); ABG PCO2 81 mmHg (35-45); ABG PH 7.27 pH Units (7.32-7.45); ABG PO2 116 mmHg (85-104); ABG TCO2 40 mEq/L (20-26); Blood Gas Modality NIV; Blood Gas VT 500 cc
[2021-03-13] MEDS ORDERED: Furosemide 40 MG/4 ML VIAL IVP ONE (09:14)
[2021-03-13] MEDS ORDERED: 0.9 % Sodium Chloride 500 ML ONE (10:11)
[2021-03-13] MEDS: Azithromycin 500 MG in 0.9 % Sodium Chloride 250 ML IVPB SCH (10:42)
[2021-03-13] MEDS ORDERED: Artificial Tears SOLN 15 ML BOTTLE BOTH EYES PRN (14:17)
[2021-03-13] MEDS: FentaNYL (PF) 1,000 MCG/100 ML IV.SOLN IVC SCH ×2 (15:06→21:05)
[2021-03-13 15:48] LABS: ABG Base Excess 13 mEq/L (-2 to 3); ABG HCO3 42 mEq/L (21-27); ABG Oxygen Saturation 100 % (95-98); ABG PCO2 92 mmHg (35-45); ABG PH 7.27 pH Units (7.32-7.45); ABG PO2 212 mmHg (85-104); ABG TCO2 45 mEq/L (20-26); Blood Gas Modality AF; Blood Gas VT 480 cc
[2021-03-13] MEDS: Artificial Tears SOLN 15 ML BOTTLE BOTH EYES SCH ×3 (16:12→23:25)
[2021-03-13] MEDS: Chlorhexidine Rinse 15 ML MOUTHWASH MM SCH ×2 (16:12→21:06)
[2021-03-13] MEDS: SODIUM ZIRCONIUM CYCLOSILICATE 5 GM POWD.PACK PO SCH ×2 (16:13→21:10)
[2021-03-13] MEDS: Pantoprazole 40 MG VIAL IVP SCH (16:13)
[2021-03-13] MEDS: Aspirin Enteric Coated 81 MG Tablet PO SCH (16:15)
[2021-03-13] MEDS ORDERED: *HR* Etomidate 20 MG/10 ML AMPUL IVP ONE (16:19)
[2021-03-13] MEDS ORDERED: *HR* Midazolam HCl 5 MG/5 ML VIAL IVP ONE (16:19)
[2021-03-13] MEDS ORDERED: *HR* Propofol 200 MG/20 ML VIAL IVP ONE (16:19)
[2021-03-13] MEDS: Apixaban 5 MG TABLET PO SCH ×2 (16:39→21:08)
[2021-03-13] MEDS: QUEtiapine Fumarate 25 MG TABLET PO SCH (21:08)
[2021-03-14] MEDS: Cefepime HCl 1,000 MG in Water for inj. (sterile) 10 ML IVP SCH ×3 (01:13→17:51)
[2021-03-14] MEDS: Ipratropium/Albuterol Neb 3 ML IH SCH ×6 (03:32→23:09)
[2021-03-14] MEDS: Insulin LISPRO 300 UNITS/3 ML VIAL SUBQ SCH ×6 (03:33→23:59)
[2021-03-14] MEDS: Artificial Tears SOLN 15 ML BOTTLE BOTH EYES SCH ×5 (03:33→19:39)
[2021-03-14] MEDS: FentaNYL (PF) 1,000 MCG/100 ML IV.SOLN IVC SCH ×4 (03:35→22:17)
[2021-03-14 04:29] LABS: Hematocrit 24.8 % (37.5-50.1); Hemoglobin 7.3 g/dL (12.9-16.9); Immature Granulocytes % 1.2 % (0-4); Lymphocytes # 0.5 K/mcL (0.6-4.6); Mean Corpuscular HGB Conc 29.4 g/dL (31.6-35.5); Mean Corpuscular Hemoglobin 24.7 pg (28.0-33.3); Mean Corpuscular Volume 84.1 fL (83.0-100.0); Mean Platelet Volume 11.1 fL (9.4-12.4); Monocytes # 0.2 K/mcL (0.0-1.3); Monocytes % 3.7 %; Neutrophils # 5.6 K/mcL (1.6-8.9); Nucleated Red Blood Cells 0.3 /100 WBC (0); Platelet Count 211 K/mcL (140-400); Red Blood Count 2.95 M/mcL (4.19-5.50); Red Cell Distribution Width 16.8 % (11.5-14.5); Segmented Neutrophils % 88.1 %; White Blood Count 6.4 K/mcL (4.3-11.1)
[2021-03-14 04:36] LABS: ABG Base Excess 12 mEq/L (-2 to 3); ABG HCO3 40 mEq/L (21-27); ABG Oxygen Saturation 100 % (95-98); ABG PCO2 76 mmHg (35-45); ABG PH 7.33 pH Units (7.32-7.45); ABG PO2 380 mmHg (85-104); ABG TCO2 42 mEq/L (20-26); Blood Gas Modality ASSIST CONTROL; Blood Gas VT 500 cc
[2021-03-14 04:49] LABS: Alanine Aminotransferase 5 Units/L (7-52); Albumin 3.1 g/dL (3.5-5.7); Alkaline Phosphatase 60 Units/L (34-104); Aspartate Amino Transferase 6 Units/L (13-39); BUN/Creatinine Ratio 65 (6-26); Bilirubin,Total 0.4 mg/dL (0.3-1.0); Blood Urea Nitrogen 86 mg/dL (8-23); Calcium 9.2 mg/dL (8.6-10.3); Carbon Dioxide 37 mEq/L (23-29); Chloride 100 mEq/L (98-107); Globulin 3.1 g/dL (2.4-3.5); Glucose 211 mg/dL (70-105); Magnesium 2.5 mg/dL (1.6-2.6); Osmolality,Calculated 326 (280-300); Phosphorous 3.4 mg/dL (2.7-4.5); Potassium 4.7 mEq/L (3.5-5.1); Sodium 142 mEq/L (136-145); Total Protein 6.2 g/dL (6.4-8.9); eGFR For African Americans > 60 (> 60); eGFR For Non-African Americans 54 (> 60)
[2021-03-14] MEDS: MethylPREDNISolone 40 MG/ML VIAL IVP SCH ×4 (05:05→23:58)
[2021-03-14] MEDS: Apixaban 5 MG TABLET PO SCH ×3 (07:23→19:39)
[2021-03-14] MEDS: Azithromycin 500 MG in 0.9 % Sodium Chloride 250 ML IVPB SCH (07:55)
[2021-03-14] MEDS: SODIUM ZIRCONIUM CYCLOSILICATE 5 GM POWD.PACK PO SCH (07:56)
[2021-03-14] MEDS: Chlorhexidine Rinse 15 ML MOUTHWASH MM SCH ×2 (07:56→19:39)
[2021-03-14] MEDS: Aspirin 81 MG TAB.CHEW PO SCH (07:56)
[2021-03-14] MEDS: Pantoprazole 40 MG VIAL IVP SCH (07:56)
[2021-03-14] MEDS ORDERED: Furosemide 40 MG/4 ML VIAL IVP ONE (09:40)
[2021-03-14] MEDS: Doxycycline 100 MG CAPSULE PO SCH ×2 (11:14→19:39)
[2021-03-14] MEDS: QUEtiapine Fumarate 25 MG TABLET PO SCH (19:40)
[2021-03-15] MEDS: Artificial Tears SOLN 15 ML BOTTLE BOTH EYES SCH ×6 (00:01→19:44)
[2021-03-15] MEDS: Cefepime HCl 1,000 MG in Water for inj. (sterile) 10 ML IVP SCH ×3 (01:43→18:31)
[2021-03-15 03:33] LABS: Basophils % 0.2 %; Hemoglobin 7.6 g/dL (12.9-16.9); Lymphocytes # 0.4 K/mcL (0.6-4.6); Lymphocytes % 6.3 %; Mean Corpuscular HGB Conc 29.2 g/dL (31.6-35.5); Mean Corpuscular Volume 85.5 fL (83.0-100.0); Mean Platelet Volume 11.8 fL (9.4-12.4); Monocytes # 0.3 K/mcL (0.0-1.3); Monocytes % 4.6 %; Neutrophils # 5.6 K/mcL (1.6-8.9); Nucleated Red Blood Cells 0.5 /100 WBC (0); Platelet Count 231 K/mcL (140-400); Red Blood Count 3.04 M/mcL (4.19-5.50); Red Cell Distribution Width 17.1 % (11.5-14.5); Segmented Neutrophils % 86.9 %; White Blood Count 6.5 K/mcL (4.3-11.1)
[2021-03-15 03:52] LABS: BUN/Creatinine Ratio 59 (6-26); Blood Urea Nitrogen 83 mg/dL (8-23); Carbon Dioxide 38 mEq/L (23-29); Chloride 101 mEq/L (98-107); Glucose 296 mg/dL (70-105); Osmolality,Calculated 334 (280-300); Potassium 4.6 mEq/L (3.5-5.1); Sodium 144 mEq/L (136-145); eGFR For African Americans > 60 (> 60); eGFR For Non-African Americans 51 (> 60)
[2021-03-15] MEDS: FentaNYL (PF) 1,000 MCG/100 ML IV.SOLN IVC SCH (03:52)
[2021-03-15] MEDS: Insulin LISPRO 300 UNITS/3 ML VIAL SUBQ SCH ×5 (04:01→20:19)
[2021-03-15] MEDS: Ipratropium/Albuterol Neb 3 ML IH SCH ×6 (04:43→23:49)
[2021-03-15 04:48] LABS: ABG Base Excess 12 mEq/L (-2 to 3); ABG HCO3 39 mEq/L (21-27); ABG Oxygen Saturation 98 % (95-98); ABG PCO2 73 mmHg (35-45); ABG PH 7.34 pH Units (7.32-7.45); ABG PO2 114 mmHg (85-104); ABG TCO2 41 mEq/L (20-26); Blood Gas Modality ASSIST CONTROL; Blood Gas VT 550 cc
[2021-03-15] MEDS: MethylPREDNISolone 40 MG/ML VIAL IVP SCH (07:39)
[2021-03-15] MEDS: Nicotine 21 MG PATCH.TD24 TD SCH (07:39)
[2021-03-15] MEDS: Chlorhexidine Rinse 15 ML MOUTHWASH MM SCH ×2 (07:40→19:44)
[2021-03-15] MEDS: Aspirin 81 MG TAB.CHEW PO SCH (07:40)
[2021-03-15] MEDS: Apixaban 5 MG TABLET PO SCH ×2 (07:40→20:18)
[2021-03-15] MEDS: Doxycycline 100 MG CAPSULE PO SCH ×2 (07:40→20:18)
[2021-03-15] MEDS: Pantoprazole 40 MG VIAL IVP SCH (07:40)
[2021-03-15] MEDS ORDERED: SODIUM ZIRCONIUM CYCLOSILICATE 5 GM POWD.PACK PO SCH (09:00)
[2021-03-15] MEDS ORDERED: *HR* Metoprolol 5 MG/5 ML VIAL IVP PRN (15:31)
[2021-03-15] MEDS ORDERED: QUEtiapine Fumarate 100 MG TABLET PO ONE (17:00)
[2021-03-15] MEDS ORDERED: *HR* Metoprolol 5 MG/5 ML VIAL IVP SCH (18:00)
[2021-03-15] MEDS: Dexmedetomidine HCl 400 MCG/100 ML MLS IVC SCH (20:19)
[2021-03-16] MEDS: Artificial Tears SOLN 15 ML BOTTLE BOTH EYES SCH ×6 (00:03→20:23)
[2021-03-16] MEDS: Dexmedetomidine HCl 400 MCG/100 ML MLS IVC SCH (01:34)
[2021-03-16] MEDS: Insulin LISPRO 300 UNITS/3 ML VIAL SUBQ SCH ×6 (02:06→20:26)
[2021-03-16 02:08] LABS: Beta Globulin (PEP) 1.05 g/dL (0.48-1.10)
[2021-03-16] MEDS: Cefepime HCl 1,000 MG in Water for inj. (sterile) 10 ML IVP SCH ×2 (02:19→10:02)
[2021-03-16] MEDS: Ipratropium/Albuterol Neb 3 ML IH SCH ×5 (03:32→20:04)
[2021-03-16 03:42] LABS: Basophils % 0.3 %; Eosinophils % 0.1 %; Hematocrit 27.7 % (37.5-50.1); Hemoglobin 8.1 g/dL (12.9-16.9); Lymphocytes # 1.2 K/mcL (0.6-4.6); Lymphocytes % 15.7 %; Mean Corpuscular HGB Conc 29.2 g/dL (31.6-35.5); Mean Corpuscular Hemoglobin 24.8 pg (28.0-33.3); Mean Platelet Volume 10.9 fL (9.4-12.4); Monocytes # 0.6 K/mcL (0.0-1.3); Monocytes % 8.4 %; Neutrophils # 5.3 K/mcL (1.6-8.9); Nucleated Red Blood Cells 0.5 /100 WBC (0); Platelet Count 189 K/mcL (140-400); Red Blood Count 3.26 M/mcL (4.19-5.50); Red Cell Distribution Width 16.9 % (11.5-14.5); Segmented Neutrophils % 70.5 %; White Blood Count 7.6 K/mcL (4.3-11.1)
[2021-03-16 04:02] LABS: BUN/Creatinine Ratio 69 (6-26); Blood Urea Nitrogen 79 mg/dL (8-23); Calcium 9.1 mg/dL (8.6-10.3); Carbon Dioxide 39 mEq/L (23-29); Chloride 101 mEq/L (98-107); Glucose 248 mg/dL (70-105); Osmolality,Calculated 330 (280-300); Sodium 144 mEq/L (136-145); eGFR For African Americans > 60 (> 60); eGFR For Non-African Americans > 60 (> 60)
[2021-03-16] MEDS ORDERED: lisinopriL 5 MG TABLET PO SCH (07:00)
[2021-03-16] MEDS: Apixaban 5 MG TABLET PO SCH ×2 (08:55→20:22)
[2021-03-16] MEDS: Doxycycline 100 MG CAPSULE PO SCH (08:56)
[2021-03-16] MEDS: Aspirin 81 MG TAB.CHEW PO SCH (08:56)
[2021-03-16] MEDS: Pantoprazole 40 MG VIAL IVP SCH (08:56)
[2021-03-16] MEDS: Chlorhexidine Rinse 15 ML MOUTHWASH MM SCH ×2 (08:57→20:23)
[2021-03-16] MEDS ORDERED: QUEtiapine Fumarate 25 MG TABLET PO SCH (09:00)
[2021-03-16] MEDS: Nicotine 21 MG PATCH.TD24 TD SCH (09:00)
[2021-03-16] MEDS ORDERED: Dextrose Gel 15 GM/37.5 ML TUBE PO PRN ×2 (10:52)
[2021-03-16] MEDS ORDERED: D5% in Water 1,000 ML IVC PRN (10:52)
[2021-03-16] MEDS ORDERED: Calcium Gluconate 1gm/50mL 1 GM/50 ML BAG IVPB PRN (10:52)
[2021-03-16] MEDS ORDERED: Naloxone 0.4 MG/ML INJ IVP PRN (10:52)
[2021-03-16] MEDS ORDERED: Acetaminophen 325 MG TABLET PO PRN (10:52)
[2021-03-16] MEDS ORDERED: *HR* Dextrose 50 % in Water (Syg) 50 ML SYRINGE IVP PRN (10:52)
[2021-03-16] MEDS ORDERED: *HR* Metoprolol 5 MG/5 ML VIAL IVP PRN (10:52)
[2021-03-16] MEDS ORDERED: Artificial Tears SOLN 15 ML BOTTLE BOTH EYES PRN (10:52)
[2021-03-16] MEDS ORDERED: FentaNYL (PF) 1,000 MCG/100 ML IV.SOLN IVC SCH (10:52)
[2021-03-16] MEDS: predniSONE 20 MG TABLET PO SCH (11:36)
[2021-03-16 13:12] LABS: Immunoglobulin G 1068 mg/dL (768-1632)
[2021-03-16 13:13] LABS: Immunoglobulin A 664 mg/dL (68-408); Immunoglobulin M 84 mg/dL (35-263)
[2021-03-16 13:21] LABS: IFE Reflexed IFE Done
[2021-03-16] MEDS ORDERED: E-Z-HD (BARIUM SULF) SUSPENSION PO ONE (16:09)
[2021-03-16] MEDS ORDERED: E-Z-PAQUE (BARIUM SULF) SUSP 1 BOTTLE PO ONE (16:09)
[2021-03-16] MEDS ORDERED: Cefepime HCl 1,000 MG in Water for inj. (sterile) 10 ML IVP SCH (18:00)
[2021-03-16] MEDS: Cefepime HCl 2,000 MG in 0.9 % Sodium Chloride Mini Bag 100 ML IVPB SCH (18:04)
[2021-03-16] MEDS: QUEtiapine Fumarate 25 MG TABLET PO SCH (20:22)
[2021-03-16] MEDS ORDERED: Doxycycline 100 MG CAPSULE PO SCH (21:00)
[2021-03-16] MEDS ORDERED: *HR* LORazepam 2 MG/ML VIAL IVP ONE (23:46)
[2021-03-17] MEDS: Ipratropium/Albuterol Neb 3 ML IH SCH ×7 (00:21→23:23)
[2021-03-17] MEDS: Artificial Tears SOLN 15 ML BOTTLE BOTH EYES SCH ×6 (00:23→20:37)
[2021-03-17] MEDS: Insulin LISPRO 300 UNITS/3 ML VIAL SUBQ SCH ×6 (00:43→20:38)
[2021-03-17 01:59] LABS: Eosinophils % 1.4 %; Red Cell Distribution Width 17.1 % (11.5-14.5)
[2021-03-17 02:01] LABS: Basophils # 0.1 K/mcL (0.0-0.2); Basophils % 0.4 %; Eosinophils # 0.2 K/mcL (0.0-0.6); Hematocrit 29.7 % (37.5-50.1); Hemoglobin 8.6 g/dL (12.9-16.9); Immature Granulocytes % 4.5 % (0-4); Lymphocytes # 1.9 K/mcL (0.6-4.6); Lymphocytes % 16.2 %; Mean Corpuscular Hemoglobin 25.1 pg (28.0-33.3); Mean Corpuscular Volume 86.6 fL (83.0-100.0); Mean Platelet Volume 11.8 fL (9.4-12.4); Monocytes % 8.1 %; Neutrophils # 8.2 K/mcL (1.6-8.9); Nucleated Red Blood Cells 0.3 /100 WBC (0); Platelet Count 228 K/mcL (140-400); Red Blood Count 3.43 M/mcL (4.19-5.50); Segmented Neutrophils % 69.4 %; White Blood Count 11.8 K/mcL (4.3-11.1)
[2021-03-17 02:20] LABS: Anisocytosis 1+ (Not Present); Platelet Estimate Normal (Normal)
[2021-03-17 02:27] LABS: BUN/Creatinine Ratio 59 (6-26); Blood Urea Nitrogen 62 mg/dL (8-23); Calcium 8.8 mg/dL (8.6-10.3); Carbon Dioxide 43 mEq/L (23-29); Chloride 102 mEq/L (98-107); Glucose 196 mg/dL (70-105); Osmolality,Calculated 327 (280-300); Potassium 3.7 mEq/L (3.5-5.1); Sodium 147 mEq/L (136-145); eGFR For African Americans > 60 (> 60); eGFR For Non-African Americans > 60 (> 60)
[2021-03-17] MEDS: Cefepime HCl 2,000 MG in 0.9 % Sodium Chloride Mini Bag 100 ML IVPB SCH ×3 (03:32→17:19)
[2021-03-17] MEDS: QUEtiapine Fumarate 25 MG TABLET PO SCH ×2 (08:46→20:44)
[2021-03-17] MEDS: lisinopriL 5 MG TABLET PO SCH (08:47)
[2021-03-17] MEDS: predniSONE 20 MG TABLET PO SCH (08:47)
[2021-03-17] MEDS: Apixaban 5 MG TABLET PO SCH ×2 (08:47→20:37)
[2021-03-17] MEDS: Chlorhexidine Rinse 15 ML MOUTHWASH MM SCH ×2 (08:47→20:36)
[2021-03-17] MEDS: Aspirin 81 MG TAB.CHEW PO SCH (08:47)
[2021-03-17] MEDS: Nicotine 21 MG PATCH.TD24 TD SCH (08:58)
[2021-03-17] MEDS: Melatonin 3 MG TABLET PO SCH (20:36)
[2021-03-17] MEDS: traZODone 50 MG TABLET PO SCH (20:36)
[2021-03-18] MEDS: Insulin LISPRO 300 UNITS/3 ML VIAL SUBQ SCH ×7 (02:39→23:35)
[2021-03-18] MEDS: Cefepime HCl 2,000 MG in 0.9 % Sodium Chloride Mini Bag 100 ML IVPB SCH ×3 (02:39→18:04)
[2021-03-18] MEDS: Artificial Tears SOLN 15 ML BOTTLE BOTH EYES SCH ×7 (02:40→22:49)
[2021-03-18] MEDS: Ipratropium/Albuterol Neb 3 ML IH SCH ×6 (03:21→23:34)
[2021-03-18] MEDS: lisinopriL 5 MG TABLET PO SCH (07:58)
[2021-03-18] MEDS: Chlorhexidine Rinse 15 ML MOUTHWASH MM SCH ×2 (07:58→19:40)
[2021-03-18] MEDS: Aspirin 81 MG TAB.CHEW PO SCH (07:58)
[2021-03-18] MEDS: predniSONE 20 MG TABLET PO SCH (07:59)
[2021-03-18] MEDS: Apixaban 5 MG TABLET PO SCH ×2 (07:59→19:40)
[2021-03-18] MEDS: QUEtiapine Fumarate 25 MG TABLET PO SCH ×3 (07:59→19:40)
[2021-03-18] MEDS: Nicotine 21 MG PATCH.TD24 TD SCH (07:59)
[2021-03-18] MEDS: Furosemide 20 MG TABLET PO SCH ×2 (15:10→18:04)
[2021-03-18] MEDS: traZODone 50 MG TABLET PO SCH (19:41)
[2021-03-18] MEDS: Melatonin 3 MG TABLET PO SCH (19:41)
[2021-03-18] MEDS ORDERED: *HR* LORazepam 2 MG/ML VIAL IVP ONE (19:58)
[2021-03-19] MEDS: Cefepime HCl 2,000 MG in 0.9 % Sodium Chloride Mini Bag 100 ML IVPB SCH (01:24)
[2021-03-19] MEDS: Artificial Tears SOLN 15 ML BOTTLE BOTH EYES SCH ×2 (01:25→08:14)
[2021-03-19] MEDS: Ipratropium/Albuterol Neb 3 ML IH SCH ×3 (03:52→11:46)
[2021-03-19] MEDS: Insulin LISPRO 300 UNITS/3 ML VIAL SUBQ SCH ×2 (04:33→08:17)
[2021-03-19] MEDS: lisinopriL 5 MG TABLET PO SCH (08:04)
[2021-03-19] MEDS: Aspirin 81 MG TAB.CHEW PO SCH (08:04)
[2021-03-19] MEDS: Chlorhexidine Rinse 15 ML MOUTHWASH MM SCH (08:04)
[2021-03-19] MEDS: Nicotine 21 MG PATCH.TD24 TD SCH (08:05)
[2021-03-19] MEDS: Furosemide 20 MG TABLET PO SCH (08:07)
[2021-03-19] MEDS: Apixaban 5 MG TABLET PO SCH (08:08)
[2021-03-19] MEDS: predniSONE 20 MG TABLET PO SCH (08:08)
[2021-03-19] MEDS: QUEtiapine Fumarate 25 MG TABLET PO SCH (08:37)
[2021-03-19 09:32] LABS: Hematocrit 29.5 % (37.5-50.1); Hemoglobin 8.7 g/dL (12.9-16.9); Mean Corpuscular HGB Conc 29.5 g/dL (31.6-35.5); Mean Corpuscular Hemoglobin 24.9 pg (28.0-33.3); Mean Corpuscular Volume 84.3 fL (83.0-100.0); Mean Platelet Volume 11.8 fL (9.4-12.4); Platelet Count 189 K/mcL (140-400); Red Cell Distribution Width 17.4 % (11.5-14.5); White Blood Count 16.7 K/mcL (4.3-11.1)
[2021-03-19 09:42] LABS: BUN/Creatinine Ratio 47 (6-26); Blood Urea Nitrogen 47 mg/dL (8-23); Calcium 9.3 mg/dL (8.6-10.3); Carbon Dioxide 38 mEq/L (23-29); Chloride 103 mEq/L (98-107); Glucose 132 mg/dL (70-105); Osmolality,Calculated 312 (280-300); Potassium 3.9 mEq/L (3.5-5.1); Sodium 144 mEq/L (136-145); eGFR For African Americans > 60 (> 60); eGFR For Non-African Americans > 60 (> 60)
[2021-03-19 11:27] VITALS: BP 97/63; PULSE 101; TEMP 98.3; O2SAT 94
== END 2021-03-19 13:13 | DRG 871 ==
LOC: 2NNU → SUATTDRO 22:03 → OBSVTOIN 22:03 → ICNU 03-11 09:49 → 3NENU 03-16 10:55
PROVIDERS: ADMIT Pharmacist; ATTEND Internal Medicine

== ENCOUNTER 2021-04-20 13:03 | Inpatient (IN) ==
[2021-04-20] MEDS ORDERED: Ipratropium/Albuterol Neb 3 ML IH ONE (13:07)
[2021-04-20] MEDS ORDERED: methylPREDNISolone 125 MG/2 ML VIAL IVP ONE (13:07)
[2021-04-20 13:28] LABS: Eosinophils % 0.4 %; Red Cell Distribution Width 17.6 % (11.5-14.5)
[2021-04-20] MEDS ORDERED: levoFLOXacin 750 MG/150 ML 750 MG/150 ML BAG IVPB ONE (13:29)
[2021-04-20 13:30] LABS: Basophils % 0.4 %; Hematocrit 33.2 % (37.5-50.1); Hemoglobin 9.7 g/dL (12.9-16.9); Lymphocytes # 0.9 K/mcL (0.6-4.6); Lymphocytes % 12.6 %; Mean Corpuscular HGB Conc 29.2 g/dL (31.6-35.5); Mean Corpuscular Hemoglobin 25.3 pg (28.0-33.3); Mean Corpuscular Volume 86.7 fL (83.0-100.0); Mean Platelet Volume 11.4 fL (9.4-12.4); Monocytes # 0.6 K/mcL (0.0-1.3); Monocytes % 8.4 %; Neutrophils # 5.4 K/mcL (1.6-8.9); Platelet Count 229 K/mcL (140-400); Red Blood Count 3.83 M/mcL (4.19-5.50); Segmented Neutrophils % 77.2 %
[2021-04-20 13:49] LABS: BUN/Creatinine Ratio 22 (6-26); Blood Urea Nitrogen 19 mg/dL (8-23); Carbon Dioxide 37 mEq/L (23-29); Chloride 99 mEq/L (98-107); Glucose 181 mg/dL (70-105); Osmolality,Calculated 301 (280-300); Potassium 4.1 mEq/L (3.5-5.1); Sodium 142 mEq/L (136-145); Troponin I 0.03 ng/mL (< 0.04); eGFR For African Americans > 60 (> 60); eGFR For Non-African Americans > 60 (> 60)
[2021-04-20 14:51] LABS: ABG Base Excess 9 mEq/L (-2 to 3); ABG HCO3 37 mEq/L (21-27); ABG Oxygen Saturation 95 % (95-98); ABG PCO2 69 mmHg (35-45); ABG PH 7.33 pH Units (7.32-7.45); ABG PO2 85 mmHg (85-104); ABG TCO2 39 mEq/L (20-26); Blood Gas Modality NIV
[2021-04-20 15:20] LABS: C-Reactive Protein 198 mg/L (Less than 10)
[2021-04-20] MEDS ORDERED: *HR* LORazepam 2 MG/ML VIAL IVP STA (15:22)
[2021-04-20] MEDS ORDERED: Saliva Stimulant 44.3ml BOTTLE PO PRN (15:22)
[2021-04-20] MEDS ORDERED: Isovue-370 500 ML BOTTLE IVP ONE (15:23)
[2021-04-20 15:43] LABS: Anisocytosis 2+ (Not Present); Hypochromasia Present (Not Present); Large Platelets Present (Not Present); Platelet Estimate Normal (Normal); Poikilocytosis 2+ (Not Present)
[2021-04-20] MEDS ORDERED: Naloxone 0.4 MG/ML INJ IVP PRN (15:55)
[2021-04-20] MEDS ORDERED: Ondansetron 4 MG/2 ML VIAL IVP PRN (15:55)
[2021-04-20] MEDS ORDERED: Ipratropium/Albuterol Neb 3 ML IH PRN (15:57)
[2021-04-20] MEDS ORDERED: *HR* LORazepam 2 MG/ML VIAL IVP ONE (20:27)
[2021-04-20] MEDS: Apixaban 5 MG TABLET PO SCH (20:44)
[2021-04-20] MEDS: QUEtiapine Fumarate 300 MG TABLET PO SCH (20:49)
[2021-04-21] MEDS ORDERED: *HR* Metoprolol 5 MG/5 ML VIAL IVP ONE (01:45)
[2021-04-21 02:01] LABS: Basophils % 0.3 %; Hemoglobin 8.9 g/dL (12.9-16.9); Monocytes % 3.3 %; Red Cell Distribution Width 17.4 % (11.5-14.5)
[2021-04-21 02:02] LABS: Hematocrit 30.3 % (37.5-50.1); Lymphocytes # 0.2 K/mcL (0.6-4.6); Lymphocytes % 5.9 %; Mean Corpuscular HGB Conc 29.4 g/dL (31.6-35.5); Mean Corpuscular Hemoglobin 25.2 pg (28.0-33.3); Mean Corpuscular Volume 85.8 fL (83.0-100.0); Mean Platelet Volume 12.2 fL (9.4-12.4); Monocytes # 0.1 K/mcL (0.0-1.3); Neutrophils # 2.8 K/mcL (1.6-8.9); Platelet Count 190 K/mcL (140-400); Red Blood Count 3.53 M/mcL (4.19-5.50); Segmented Neutrophils % 89.5 %; White Blood Count 3.1 K/mcL (4.3-11.1)
[2021-04-21 02:12] LABS: BUN/Creatinine Ratio 28 (6-26); Blood Urea Nitrogen 23 mg/dL (8-23); Calcium 8.5 mg/dL (8.6-10.3); Carbon Dioxide 30 mEq/L (23-29); Chloride 99 mEq/L (98-107); Glucose 252 mg/dL (70-105); Osmolality,Calculated 304 (280-300); Potassium 4.6 mEq/L (3.5-5.1); Sodium 141 mEq/L (136-145); eGFR For African Americans > 60 (> 60); eGFR For Non-African Americans > 60 (> 60)
[2021-04-21 03:08] LABS: Platelet Estimate Normal (Normal)
[2021-04-21] MEDS ORDERED: methylPREDNISolone 125 MG/2 ML VIAL IVP SCH (08:00)
[2021-04-21] MEDS: Apixaban 5 MG TABLET PO SCH ×2 (09:29→20:05)
[2021-04-21] MEDS: Aspirin Enteric Coated 81 MG Tablet PO SCH (09:29)
[2021-04-21] MEDS: Nicotine 21 MG PATCH.TD24 TD SCH (09:29)
[2021-04-21] MEDS: Finasteride 5 MG TABLET PO SCH (09:29)
[2021-04-21] MEDS ORDERED: *HR* Dextrose 50 % in Water (Syg) 50 ML SYRINGE IVP PRN (16:19)
[2021-04-21] MEDS ORDERED: Dextrose Gel 15 GM/37.5 ML TUBE PO PRN ×2 (16:19)
[2021-04-21] MEDS ORDERED: D5% in Water 1,000 ML IVC PRN (16:19)
[2021-04-21] MEDS: Insulin LISPRO 300 UNITS/3 ML VIAL SUBQ SCH (17:38)
[2021-04-21] MEDS: Benzonatate 100 MG CAPSULE PO PRN (17:38)
[2021-04-21] MEDS: *HR* HYDROcodone/Acet 5/325 mg TABLET PO PRN (17:38)
[2021-04-21] MEDS: QUEtiapine Fumarate 300 MG TABLET PO SCH (20:05)
[2021-04-22] MEDS: *HR* HYDROcodone/Acet 5/325 mg TABLET PO PRN ×3 (01:39→20:37)
[2021-04-22 01:48] LABS: Red Cell Distribution Width 17.2 % (11.5-14.5)
[2021-04-22 01:49] LABS: Hematocrit 30.6 % (37.5-50.1); Hemoglobin 8.8 g/dL (12.9-16.9); Mean Corpuscular HGB Conc 28.8 g/dL (31.6-35.5); Mean Corpuscular Hemoglobin 25.3 pg (28.0-33.3); Mean Corpuscular Volume 87.9 fL (83.0-100.0); Mean Platelet Volume 11.6 fL (9.4-12.4); Platelet Count 186 K/mcL (140-400); Red Blood Count 3.48 M/mcL (4.19-5.50); White Blood Count 4.1 K/mcL (4.3-11.1)
[2021-04-22 02:10] LABS: BUN/Creatinine Ratio 44 (6-26); Blood Urea Nitrogen 51 mg/dL (8-23); Calcium 8.2 mg/dL (8.6-10.3); Carbon Dioxide 36 mEq/L (23-29); Chloride 100 mEq/L (98-107); Glucose 283 mg/dL (70-105); Osmolality,Calculated 314 (280-300); Potassium 5.4 mEq/L (3.5-5.1); Sodium 140 mEq/L (136-145); eGFR For African Americans > 60 (> 60); eGFR For Non-African Americans > 60 (> 60)
[2021-04-22] MEDS: Aspirin Enteric Coated 81 MG Tablet PO SCH (06:40)
[2021-04-22] MEDS: Finasteride 5 MG TABLET PO SCH (06:40)
[2021-04-22] MEDS: Benzonatate 100 MG CAPSULE PO PRN (06:40)
[2021-04-22] MEDS: Insulin LISPRO 300 UNITS/3 ML VIAL SUBQ SCH ×4 (09:54→18:00)
[2021-04-22] MEDS: Nicotine 21 MG PATCH.TD24 TD SCH (09:55)
[2021-04-22] MEDS: levoFLOXacin 750 MG/150 ML 750 MG/150 ML BAG IVPB SCH (09:55)
[2021-04-22] MEDS: Apixaban 5 MG TABLET PO SCH ×2 (09:55→20:38)
[2021-04-22] MEDS: Budesonide/Formoterol 160/4.5 1 PUFF INH IH SCH (19:06)
[2021-04-22] MEDS: QUEtiapine Fumarate 300 MG TABLET PO SCH (20:36)
[2021-04-22] MEDS ORDERED: Insulin DETEMIR 100 UNIT/ML X5UNITS SUBQ SCH (21:00)
[2021-04-22] MEDS ORDERED: *HR* LORazepam 2 MG/ML VIAL IVP ONE (22:25)
[2021-04-23] MEDS ORDERED: Cholecalciferol (D-3) 1,000 UNIT (25MCG) TABLET PO SCH (07:00)
[2021-04-23] MEDS: Aspirin Enteric Coated 81 MG Tablet PO SCH (07:52)
[2021-04-23] MEDS: Apixaban 5 MG TABLET PO SCH ×2 (07:52→19:35)
[2021-04-23] MEDS: Finasteride 5 MG TABLET PO SCH (07:52)
[2021-04-23] MEDS: Insulin LISPRO 300 UNITS/3 ML VIAL SUBQ SCH ×6 (07:54→17:21)
[2021-04-23] MEDS: levoFLOXacin 750 MG/150 ML 750 MG/150 ML BAG IVPB SCH (07:56)
[2021-04-23] MEDS: Budesonide/Formoterol 160/4.5 1 PUFF INH IH SCH ×2 (08:21→20:28)
[2021-04-23 08:53] LABS: Hematocrit 30.3 % (37.5-50.1); Hemoglobin 8.7 g/dL (12.9-16.9); Mean Corpuscular HGB Conc 28.7 g/dL (31.6-35.5); Mean Corpuscular Hemoglobin 25.4 pg (28.0-33.3); Mean Corpuscular Volume 88.3 fL (83.0-100.0); Mean Platelet Volume 11.8 fL (9.4-12.4); Platelet Count 189 K/mcL (140-400); Red Blood Count 3.43 M/mcL (4.19-5.50); White Blood Count 8.3 K/mcL (4.3-11.1)
[2021-04-23] MEDS: Nicotine 21 MG PATCH.TD24 TD SCH (09:05)
[2021-04-23 09:15] LABS: BUN/Creatinine Ratio 52 (6-26); Blood Urea Nitrogen 49 mg/dL (8-23); Calcium 8.9 mg/dL (8.6-10.3); Carbon Dioxide 39 mEq/L (23-29); Chloride 100 mEq/L (98-107); Glucose 255 mg/dL (70-105); Osmolality,Calculated 312 (280-300); Sodium 140 mEq/L (136-145); eGFR For African Americans > 60 (> 60); eGFR For Non-African Americans > 60 (> 60)
[2021-04-23] MEDS: *HR* HYDROcodone/Acet 5/325 mg TABLET PO PRN (15:15)
[2021-04-23] MEDS: QUEtiapine Fumarate 300 MG TABLET PO SCH (19:34)
[2021-04-23] MEDS ORDERED: *HR* LORazepam 2 MG/ML VIAL IVP ONE (23:17)
[2021-04-24] MEDS: Insulin DETEMIR 100 UNIT/ML X5UNITS SUBQ SCH ×2 (00:36→20:40)
[2021-04-24] MEDS ORDERED: Piperacillin/Tazobactam 3.375 GM in 0.9 % Sodium Chloride Mini Bag 100 ML IVPB SCH (06:00)
[2021-04-24] MEDS: Budesonide/Formoterol 160/4.5 1 PUFF INH IH SCH ×2 (08:06→20:44)
[2021-04-24] MEDS: levoFLOXacin 750 MG/150 ML 750 MG/150 ML BAG IVPB SCH (09:02)
[2021-04-24] MEDS: Nicotine 21 MG PATCH.TD24 TD SCH (09:02)
[2021-04-24] MEDS: Cholecalciferol (D-3) 1,000 UNIT (25MCG) TABLET PO SCH (09:03)
[2021-04-24] MEDS: Apixaban 5 MG TABLET PO SCH ×2 (09:03→20:40)
[2021-04-24] MEDS: Aspirin Enteric Coated 81 MG Tablet PO SCH (09:03)
[2021-04-24] MEDS: Finasteride 5 MG TABLET PO SCH (09:04)
[2021-04-24] MEDS: Insulin LISPRO 300 UNITS/3 ML VIAL SUBQ SCH ×6 (09:05→17:22)
[2021-04-24] MEDS ORDERED: *HR* LORazepam 2 MG/ML VIAL IVP ONE ×2 (10:47→20:00)
[2021-04-24] MEDS: QUEtiapine Fumarate 300 MG TABLET PO SCH (20:40)
[2021-04-24] MEDS: *HR* HYDROcodone/Acet 5/325 mg TABLET PO PRN (21:11)
[2021-04-25] MEDS: Budesonide/Formoterol 160/4.5 1 PUFF INH IH SCH ×2 (07:56→20:04)
[2021-04-25 08:44] LABS: Magnesium 1.7 mg/dL (1.6-2.6); Phosphorous 2.9 mg/dL (2.7-4.5)
[2021-04-25 08:48] LABS: BUN/Creatinine Ratio 58 (6-26); Blood Urea Nitrogen 44 mg/dL (8-23); Carbon Dioxide 44 mEq/L (23-29); Chloride 98 mEq/L (98-107); Potassium 5.5 mEq/L (3.5-5.1); Sodium 140 mEq/L (136-145)
[2021-04-25 08:49] LABS: Calcium 9.3 mg/dL (8.6-10.3); Glucose 186 mg/dL (70-105); Osmolality,Calculated 306 (280-300); eGFR For African Americans > 60 (> 60); eGFR For Non-African Americans > 60 (> 60)
[2021-04-25] MEDS: *HR* HYDROcodone/Acet 5/325 mg TABLET PO PRN ×2 (09:54→17:14)
[2021-04-25] MEDS: Nicotine 21 MG PATCH.TD24 TD SCH (09:54)
[2021-04-25] MEDS: Cholecalciferol (D-3) 1,000 UNIT (25MCG) TABLET PO SCH (09:54)
[2021-04-25] MEDS: Apixaban 5 MG TABLET PO SCH ×2 (09:55→21:07)
[2021-04-25] MEDS: Finasteride 5 MG TABLET PO SCH (09:55)
[2021-04-25] MEDS: levoFLOXacin 750 MG/150 ML 750 MG/150 ML BAG IVPB SCH (09:55)
[2021-04-25] MEDS: Insulin LISPRO 300 UNITS/3 ML VIAL SUBQ SCH ×6 (09:56→18:04)
[2021-04-25] MEDS: Aspirin Enteric Coated 81 MG Tablet PO SCH (09:56)
[2021-04-25] MEDS ORDERED: *HR* LORazepam 2 MG/ML VIAL IVP ONE (20:45)
[2021-04-25] MEDS: QUEtiapine Fumarate 300 MG TABLET PO SCH (21:07)
[2021-04-25] MEDS: Insulin DETEMIR 100 UNIT/ML X5UNITS SUBQ SCH (21:07)
[2021-04-26 04:46] VITALS: TEMP 98.8
[2021-04-26 07:23] VITALS: BP 136/85; PULSE 102
[2021-04-26] MEDS: Cholecalciferol (D-3) 1,000 UNIT (25MCG) TABLET PO SCH (07:53)
[2021-04-26] MEDS: Aspirin Enteric Coated 81 MG Tablet PO SCH (07:53)
[2021-04-26] MEDS: Apixaban 5 MG TABLET PO SCH (07:54)
[2021-04-26] MEDS: Nicotine 21 MG PATCH.TD24 TD SCH (07:54)
[2021-04-26] MEDS: Insulin LISPRO 300 UNITS/3 ML VIAL SUBQ SCH ×2 (07:55)
[2021-04-26] MEDS: Finasteride 5 MG TABLET PO SCH (08:03)
[2021-04-26] MEDS: Budesonide/Formoterol 160/4.5 1 PUFF INH IH SCH (08:20)
[2021-04-26 08:26] VITALS: O2SAT 95
[2021-04-26] MEDS ORDERED: levoFLOXacin 750 MG TABLET PO SCH (09:00)
== END 2021-04-26 10:20 | disposition home health service (06) | DRG 177 ==
LOC: 3NENU 13:03 → EMEROOARM 13:03 → SUATTDRO 18:39 → 3NENU 20:06
PROVIDERS: ADMIT Student in an Organized Health Care Education/Training Program; ATTEND Internal Medicine

== ENCOUNTER 2021-05-17 21:44 | Inpatient (IN) ==
[2021-05-17] MEDS ORDERED: Isovue-370 500 ML BOTTLE IVP ONE (22:16)
[2021-05-17] MEDS ORDERED: cefTRIAXone 1,000 MG in Water for inj. (sterile) 10 ML IVP ONE (22:17)
[2021-05-17 22:45] LABS: Basophils % 0.3 %; Eosinophils # 0.5 K/mcL (0.0-0.6); Eosinophils % 5.5 %; Hematocrit 27.8 % (37.5-50.1); Hemoglobin 8.1 g/dL (12.9-16.9); Immature Granulocytes % 0.3 % (0-4); Lymphocytes # 1.2 K/mcL (0.6-4.6); Lymphocytes % 13.2 %; Mean Corpuscular HGB Conc 29.1 g/dL (31.6-35.5); Mean Corpuscular Hemoglobin 24.3 pg (28.0-33.3); Mean Corpuscular Volume 83.2 fL (83.0-100.0); Mean Platelet Volume 10.8 fL (9.4-12.4); Monocytes # 0.6 K/mcL (0.0-1.3); Monocytes % 7.4 %; Neutrophils # 6.4 K/mcL (1.6-8.9); Nucleated Red Blood Cells 0.2 /100 WBC (0); Platelet Count 200 K/mcL (140-400); Red Blood Count 3.34 M/mcL (4.19-5.50); Red Cell Distribution Width 17.5 % (11.5-14.5); Segmented Neutrophils % 73.3 %; White Blood Count 8.7 K/mcL (4.3-11.1)
[2021-05-17 22:52] LABS: INR 1.2; Prothrombin Time 13.9 Seconds (9.4-12.1)
[2021-05-17 22:55] LABS: Activated Partial Thrombo Time 33.7 Seconds (26.0-36.0)
[2021-05-17 23:11] LABS: Alanine Aminotransferase 7 Units/L (7-52); Albumin 3.2 g/dL (3.5-5.7); Albumin/Globulin Ratio 1.1 (1.1-2.2); Alkaline Phosphatase 102 Units/L (34-104); Aspartate Amino Transferase 10 Units/L (13-39); BUN/Creatinine Ratio 19 (6-26); Bilirubin,Indirect 0.4 mg/dL (0.0-1.0); Bilirubin,Total 0.4 mg/dL (0.3-1.0); Blood Urea Nitrogen 19 mg/dL (8-23); Calcium 8.6 mg/dL (8.6-10.3); Carbon Dioxide 34 mEq/L (23-29); Chloride 97 mEq/L (98-107); Glucose 142 mg/dL (70-105); Magnesium 1.7 mg/dL (1.6-2.6); Osmolality,Calculated 283 (280-300); Potassium 4.4 mEq/L (3.5-5.1); Sodium 134 mEq/L (136-145); Total Protein 6.2 g/dL (6.4-8.9); Troponin I 0.03 ng/mL (< 0.04); eGFR For African Americans > 60 (> 60); eGFR For Non-African Americans > 60 (> 60)
[2021-05-18] MEDS ORDERED: Morphine Sulfate 2 MG/ML SYRINGE IVP ONE (01:54)
[2021-05-18] MEDS ORDERED: Naloxone 0.4 MG/ML INJ IVP PRN (05:45)
[2021-05-18] MEDS ORDERED: Ondansetron 4 MG/2 ML VIAL IVP PRN (05:45)
[2021-05-18] MEDS ORDERED: Dextrose Gel 15 GM/37.5 ML TUBE PO PRN ×2 (06:05)
[2021-05-18] MEDS ORDERED: *HR* Dextrose 50 % in Water (Syg) 50 ML SYRINGE IVP PRN (06:05)
[2021-05-18] MEDS ORDERED: D5% in Water 1,000 ML IVC PRN (06:05)
[2021-05-18] MEDS ORDERED: *HR* Metoprolol 5 MG/5 ML VIAL IVP PRN (06:09)
[2021-05-18] MEDS ORDERED: Vancomycin 2,000 MG/520 ML IV.SOLN IVPB ONE (07:00)
[2021-05-18] MEDS: Furosemide 20 MG TABLET PO SCH ×2 (08:49→16:52)
[2021-05-18] MEDS: *HR* OxyCODONE Immed Rel 5 MG TABLET PO PRN ×2 (09:45→21:06)
[2021-05-18] MEDS: Insulin LISPRO 300 UNITS/3 ML VIAL SUBQ SCH ×3 (09:46→16:21)
[2021-05-18] MEDS: Piperacillin/Tazobactam 3.375 GM in 0.9 % Sodium Chloride Mini Bag 100 ML IVPB SCH ×2 (09:46→16:51)
[2021-05-18] MEDS ORDERED: Acetaminophen IV 1,000 MG/100 ML BAG IVPB ONE (11:12)
[2021-05-18] MEDS: Ipratropium/Albuterol Neb 3 ML IH PRN ×4 (12:16→20:32)
[2021-05-18] MEDS: Vancomycin 1,500 MG/265 ML IV.SOLN IVPB SCH (21:02)
[2021-05-18] MEDS: Apixaban 5 MG TABLET PO SCH (21:02)
[2021-05-19] MEDS: Piperacillin/Tazobactam 3.375 GM in 0.9 % Sodium Chloride Mini Bag 100 ML IVPB SCH ×4 (00:08→23:09)
[2021-05-19] MEDS: *HR* OxyCODONE Immed Rel 5 MG TABLET PO PRN ×4 (04:05→23:09)
[2021-05-19 05:57] LABS: Bacteria,Urine Few per hpf (None-Few); Bilirubin,Urine Negative (Negative); Blood,Urine Negative (Negative); Clarity,Urine Clear (Clear); Color,Urine Light-Yellow (Yellow); Glucose,Urine (UA) Normal (Normal); Hyaline Casts,Urine Few per lpf (None Seen); Ketones,Urine Negative (Negative); Leukocyte Esterase,Urine Negative (Negative); Mucus,Urine Few per lpf (None-Few); Nitrite,Urine Negative (Negative); PH,Urine 5.5 pH Units (5.0-8.0); Protein,Urine 30 mg/dL (Neg-Trace); RBC,Urine 0-3 per hpf (0-3); Specific Gravity,Urine 1.023 (1.010-1.025); Squamous Epithelial Cell,Urine Few per hpf (None-Few); Urobilinogen,Urine Normal (Normal); WBC,Urine 0-3 per hpf (0-3)
[2021-05-19 07:01] LABS: Hemoglobin 7.6 g/dL (12.9-16.9); Red Cell Distribution Width 17.6 % (11.5-14.5)
[2021-05-19 07:02] LABS: Hematocrit 27.1 % (37.5-50.1); Mean Corpuscular Hemoglobin 23.9 pg (28.0-33.3); Mean Corpuscular Volume 85.2 fL (83.0-100.0); Mean Platelet Volume 11.1 fL (9.4-12.4); Platelet Count 205 K/mcL (140-400); Red Blood Count 3.18 M/mcL (4.19-5.50)
[2021-05-19 07:23] LABS: BUN/Creatinine Ratio 16 (6-26); Blood Urea Nitrogen 20 mg/dL (8-23); Calcium 8.3 mg/dL (8.6-10.3); Carbon Dioxide 34 mEq/L (23-29); Chloride 100 mEq/L (98-107); Glucose 208 mg/dL (70-105); Magnesium 1.7 mg/dL (1.6-2.6); Osmolality,Calculated 291 (280-300); Phosphorous 3.8 mg/dL (2.7-4.5); Potassium 4.5 mEq/L (3.5-5.1); Sodium 136 mEq/L (136-145); eGFR For African Americans > 60 (> 60); eGFR For Non-African Americans 57 (> 60)
[2021-05-19] MEDS ORDERED: Ipratropium/Albuterol Neb 3 ML IH PRN (08:17)
[2021-05-19] MEDS: Insulin LISPRO 300 UNITS/3 ML VIAL SUBQ SCH ×3 (08:18→16:14)
[2021-05-19] MEDS: Apixaban 5 MG TABLET PO SCH ×2 (08:19→20:43)
[2021-05-19] MEDS: Furosemide 20 MG TABLET PO SCH ×2 (08:19→16:14)
[2021-05-19] MEDS: Nicotine 21 MG PATCH.TD24 TD SCH (10:25)
[2021-05-19] MEDS: Gabapentin 400 MG CAPSULE PO SCH ×4 (10:25→20:43)
[2021-05-19] MEDS: BuPROPion SR (12 HR) 100 MG TABLET PO SCH ×2 (10:26→20:43)
[2021-05-19] MEDS: Ipratropium/Albuterol Neb 3 ML IH PRN (10:57)
[2021-05-19] MEDS ORDERED: Vancomycin 1,500 MG/265 ML IV.SOLN IVPB SCH (12:00)
[2021-05-19] MEDS: Vancomycin 1,500 MG/265 ML IV.SOLN IVPB SCH (12:47)
[2021-05-19] MEDS ORDERED: *HR* OxyCODONE Immed Rel 5 MG TABLET PO PRN (15:03)
[2021-05-19] MEDS: predniSONE 20 MG TABLET PO SCH (16:13)
[2021-05-19] MEDS ORDERED: Furosemide 20 MG TABLET PO SCH (19:00)
[2021-05-19] MEDS: Budesonide/Formoterol 160/4.5 1 PUFF INH IH SCH (19:54)
[2021-05-19] MEDS: QUEtiapine Fumarate 25 MG TABLET PO SCH (20:43)
[2021-05-19] MEDS: Insulin DETEMIR 100 UNIT/ML X5UNITS SUBQ SCH (20:43)
[2021-05-20 01:13] LABS: Hematocrit 27.9 % (37.5-50.1); Hemoglobin 7.6 g/dL (12.9-16.9); Mean Corpuscular HGB Conc 27.2 g/dL (31.6-35.5); Mean Corpuscular Hemoglobin 23.6 pg (28.0-33.3); Mean Corpuscular Volume 86.6 fL (83.0-100.0); Mean Platelet Volume 11.9 fL (9.4-12.4); Platelet Count 225 K/mcL (140-400); Red Blood Count 3.22 M/mcL (4.19-5.50); Red Cell Distribution Width 17.5 % (11.5-14.5); White Blood Count 8.1 K/mcL (4.3-11.1)
[2021-05-20] MEDS: Vancomycin 1,250 MG/262.5 ML IV.SOLN IVPB SCH ×2 (01:20→13:13)
[2021-05-20 01:33] LABS: BUN/Creatinine Ratio 16 (6-26); Blood Urea Nitrogen 23 mg/dL (8-23); Calcium 8.1 mg/dL (8.6-10.3); Carbon Dioxide 35 mEq/L (23-29); Chloride 99 mEq/L (98-107); Glucose 313 mg/dL (70-105); Magnesium 1.7 mg/dL (1.6-2.6); Osmolality,Calculated 300 (280-300); Potassium 5.3 mEq/L (3.5-5.1); Sodium 137 mEq/L (136-145); eGFR For African Americans > 60 (> 60); eGFR For Non-African Americans 50 (> 60)
[2021-05-20] MEDS ORDERED: lisinopriL 5 MG TABLET PO SCH (07:00)
[2021-05-20] MEDS: BuPROPion SR (12 HR) 100 MG TABLET PO SCH ×2 (08:04→20:05)
[2021-05-20] MEDS: Nicotine 21 MG PATCH.TD24 TD SCH (08:14)
[2021-05-20] MEDS: Piperacillin/Tazobactam 3.375 GM in 0.9 % Sodium Chloride Mini Bag 100 ML IVPB SCH ×2 (08:15→17:52)
[2021-05-20] MEDS: Insulin LISPRO 300 UNITS/3 ML VIAL SUBQ SCH ×3 (08:15→17:50)
[2021-05-20] MEDS: predniSONE 20 MG TABLET PO SCH (08:16)
[2021-05-20] MEDS: Cholecalciferol (D-3) 1,000 UNIT (25MCG) TABLET PO SCH (08:16)
[2021-05-20] MEDS: Apixaban 5 MG TABLET PO SCH ×2 (08:16→19:58)
[2021-05-20] MEDS: Gabapentin 400 MG CAPSULE PO SCH ×4 (08:16→19:59)
[2021-05-20] MEDS: Finasteride 5 MG TABLET PO SCH (08:17)
[2021-05-20] MEDS: Aspirin Enteric Coated 81 MG Tablet PO SCH (08:17)
[2021-05-20] MEDS: QUEtiapine Fumarate 25 MG TABLET PO SCH ×2 (08:17→19:59)
[2021-05-20] MEDS: Ipratropium/Albuterol Neb 3 ML IH PRN (08:45)
[2021-05-20] MEDS: Budesonide/Formoterol 160/4.5 1 PUFF INH IH SCH ×2 (08:45→19:58)
[2021-05-20] MEDS ORDERED: Albumin 25% 25gram/100mL 25 GM/100 ML IV.SOLN IVPB ONE (14:55)
[2021-05-20] MEDS ORDERED: *HR* OxyCODONE Immed Rel 5 MG TABLET PO PRN (14:56)
[2021-05-20] MEDS ORDERED: Furosemide 20 MG/2 ML VIAL IVP ONE (15:15)
[2021-05-20] MEDS: *HR* OxyCODONE Immed Rel 5 MG TABLET PO PRN ×2 (16:05→22:33)
[2021-05-20] MEDS: Insulin DETEMIR 100 UNIT/ML X5UNITS SUBQ SCH (19:58)
[2021-05-21] MEDS: Vancomycin 1,250 MG/262.5 ML IV.SOLN IVPB SCH ×2 (00:22→19:22)
[2021-05-21] MEDS: Piperacillin/Tazobactam 3.375 GM in 0.9 % Sodium Chloride Mini Bag 100 ML IVPB SCH ×3 (00:23→15:04)
[2021-05-21 04:47] LABS: Hematocrit 25.8 % (37.5-50.1); Hemoglobin 7.3 g/dL (12.9-16.9); Mean Corpuscular HGB Conc 28.3 g/dL (31.6-35.5); Mean Corpuscular Hemoglobin 24.6 pg (28.0-33.3); Mean Corpuscular Volume 86.9 fL (83.0-100.0); Mean Platelet Volume 11.4 fL (9.4-12.4); Platelet Count 255 K/mcL (140-400); Red Blood Count 2.97 M/mcL (4.19-5.50); Red Cell Distribution Width 17.5 % (11.5-14.5); White Blood Count 8.4 K/mcL (4.3-11.1)
[2021-05-21] MEDS: *HR* OxyCODONE Immed Rel 5 MG TABLET PO PRN ×2 (04:58→22:36)
[2021-05-21 05:06] LABS: Calcium 8.2 mg/dL (8.6-10.3); Magnesium 2.1 mg/dL (1.6-2.6); Potassium 5.3 mEq/L (3.5-5.1)
[2021-05-21] MEDS: Budesonide/Formoterol 160/4.5 1 PUFF INH IH SCH ×2 (07:55→20:56)
[2021-05-21] MEDS: Ipratropium/Albuterol Neb 3 ML IH PRN ×2 (07:55→16:01)
[2021-05-21] MEDS: QUEtiapine Fumarate 25 MG TABLET PO SCH ×2 (08:29→22:34)
[2021-05-21] MEDS: BuPROPion SR (12 HR) 100 MG TABLET PO SCH ×2 (08:30→22:34)
[2021-05-21] MEDS: Aspirin Enteric Coated 81 MG Tablet PO SCH (08:30)
[2021-05-21] MEDS: Finasteride 5 MG TABLET PO SCH (08:30)
[2021-05-21] MEDS: Cholecalciferol (D-3) 1,000 UNIT (25MCG) TABLET PO SCH (08:30)
[2021-05-21] MEDS: Gabapentin 400 MG CAPSULE PO SCH ×2 (08:30→14:11)
[2021-05-21] MEDS: predniSONE 20 MG TABLET PO SCH (08:30)
[2021-05-21] MEDS: Apixaban 5 MG TABLET PO SCH ×2 (08:30→22:34)
[2021-05-21] MEDS: Insulin LISPRO 300 UNITS/3 ML VIAL SUBQ SCH ×3 (08:31→17:29)
[2021-05-21] MEDS: Nicotine 21 MG PATCH.TD24 TD SCH (08:31)
[2021-05-21] MEDS: 0.9 % Sodium Chloride 1,000 ML IVC SCH (15:03)
[2021-05-21 19:11] LABS: Estimated Average Glucose 237 mg/dl; Hemoglobin A1C 9.9 %
[2021-05-21] MEDS: Insulin DETEMIR 100 UNIT/ML X5UNITS SUBQ SCH (22:35)
[2021-05-22] MEDS: Piperacillin/Tazobactam 3.375 GM in 0.9 % Sodium Chloride Mini Bag 100 ML IVPB SCH ×4 (01:04→23:51)
[2021-05-22] MEDS: *HR* OxyCODONE Immed Rel 5 MG TABLET PO PRN ×4 (03:50→21:40)
[2021-05-22 06:49] LABS: Basophils # 0.1 K/mcL (0.0-0.2); Basophils % 0.5 %; Immature Granulocytes % 1.3 % (0-4); Red Cell Distribution Width 17.9 % (11.5-14.5); White Blood Count 9.8 K/mcL (4.3-11.1)
[2021-05-22 06:50] LABS: Eosinophils # 0.1 K/mcL (0.0-0.6); Eosinophils % 1.4 %; Hemoglobin 7.7 g/dL (12.9-16.9); Lymphocytes # 1.9 K/mcL (0.6-4.6); Lymphocytes % 19.3 %; Mean Corpuscular HGB Conc 28.5 g/dL (31.6-35.5); Mean Corpuscular Hemoglobin 24.8 pg (28.0-33.3); Mean Corpuscular Volume 87.1 fL (83.0-100.0); Mean Platelet Volume 11.2 fL (9.4-12.4); Monocytes # 0.7 K/mcL (0.0-1.3); Monocytes % 6.7 %; Neutrophils # 6.9 K/mcL (1.6-8.9); Nucleated Red Blood Cells 0.6 /100 WBC (0); Platelet Count 307 K/mcL (140-400); Segmented Neutrophils % 70.8 %
[2021-05-22 07:06] LABS: Albumin 3.4 g/dL (3.5-5.7); Calcium 8.9 mg/dL (8.6-10.3); Phosphorous 3.5 mg/dL (2.7-4.5); Potassium 5.8 mEq/L (3.5-5.1); Uric Acid 5.6 mg/dL (2.3-7.6)
[2021-05-22 07:10] LABS: Thyroid Stimulating Hormone 0.954 mcIU/mL (0.340-5.600)
[2021-05-22 07:27] LABS: Hypochromasia Present (Not Present)
[2021-05-22 07:28] LABS: Platelet Estimate Normal (Normal)
[2021-05-22] MEDS: Budesonide/Formoterol 160/4.5 1 PUFF INH IH SCH ×2 (07:38→21:33)
[2021-05-22] MEDS: Insulin LISPRO 300 UNITS/3 ML VIAL SUBQ SCH ×3 (08:49→16:25)
[2021-05-22] MEDS: Nicotine 21 MG PATCH.TD24 TD SCH (08:50)
[2021-05-22] MEDS: QUEtiapine Fumarate 25 MG TABLET PO SCH ×2 (08:51→21:39)
[2021-05-22] MEDS: Aspirin Enteric Coated 81 MG Tablet PO SCH (08:51)
[2021-05-22] MEDS: Apixaban 5 MG TABLET PO SCH ×2 (08:52→21:38)
[2021-05-22] MEDS: Finasteride 5 MG TABLET PO SCH (08:52)
[2021-05-22] MEDS: predniSONE 20 MG TABLET PO SCH (08:52)
[2021-05-22] MEDS: Cholecalciferol (D-3) 1,000 UNIT (25MCG) TABLET PO SCH (08:52)
[2021-05-22] MEDS: BuPROPion SR (12 HR) 100 MG TABLET PO SCH ×2 (08:57→21:38)
[2021-05-22 12:05] LABS: Vitamin B12 286 pg/mL (250-1100)
[2021-05-22 12:57] LABS: Vitamin D 25 Hydroxy 33 ng/mL (30-80)
[2021-05-22 13:15] LABS: Hepatitis B Surface Antigen Nonreactive (Nonreactive)
[2021-05-22 13:43] LABS: Hepatitis C Virus Antibody Nonreactive (Nonreactive)
[2021-05-22 13:44] LABS: Hepatitis B Core IgM Nonreactive (Nonreactive)
[2021-05-22 13:45] LABS: Hepatitis A Antibody IgM Nonreactive (Nonreactive)
[2021-05-22] MEDS: Ipratropium/Albuterol Neb 3 ML IH PRN (15:13)
[2021-05-22] MEDS: SODIUM ZIRCONIUM CYCLOSILICATE 5 GM POWD.PACK PO SCH (16:22)
[2021-05-22] MEDS: 0.9 % Sodium Chloride 1,000 ML IVC SCH (16:25)
[2021-05-22] MEDS ORDERED: Perflutren Lipid Microsphere 1.3 ML in 0.9 % Sodium Chloride 8.7 ML IVP PRN (17:34)
[2021-05-22 21:36] LABS: Protein/Creatinine Ratio,Urine 0.34 mg/mg (0.00-0.20)
[2021-05-22] MEDS: Insulin DETEMIR 100 UNIT/ML X5UNITS SUBQ SCH (21:39)
[2021-05-23] MEDS: Ipratropium/Albuterol Neb 3 ML IH PRN ×4 (00:04→16:21)
[2021-05-23] MEDS: *HR* OxyCODONE Immed Rel 5 MG TABLET PO PRN ×3 (02:50→20:45)
[2021-05-23 05:38] LABS: Basophils % 0.4 %; Eosinophils % 0.4 %; Hemoglobin 7.8 g/dL (12.9-16.9); Immature Granulocytes % 1.5 % (0-4); Lymphocytes # 1.5 K/mcL (0.6-4.6); Lymphocytes % 15.7 %; Mean Corpuscular HGB Conc 27.9 g/dL (31.6-35.5); Mean Corpuscular Hemoglobin 23.9 pg (28.0-33.3); Mean Corpuscular Volume 85.9 fL (83.0-100.0); Mean Platelet Volume 11.2 fL (9.4-12.4); Monocytes # 0.6 K/mcL (0.0-1.3); Monocytes % 6.1 %; Nucleated Red Blood Cells 0.4 /100 WBC (0); Platelet Count 317 K/mcL (140-400); Red Blood Count 3.26 M/mcL (4.19-5.50); Red Cell Distribution Width 17.7 % (11.5-14.5); Segmented Neutrophils % 75.9 %; White Blood Count 9.3 K/mcL (4.3-11.1)
[2021-05-23 05:43] LABS: Neutrophils # 7.1 K/mcL (1.6-8.9)
[2021-05-23 06:03] LABS: Anisocytosis 1+ (Not Present); Hypochromasia Present (Not Present); Stomatocytes 1+ (Not Present)
[2021-05-23 06:04] LABS: Basophilic Stippling 1+ (Not Present); Polychromasia 1+ (Not Present)
[2021-05-23 06:05] LABS: Calcium 8.8 mg/dL (8.6-10.3); Platelet Estimate Normal (Normal); Potassium 5.9 mEq/L (3.5-5.1)
[2021-05-23] MEDS: Budesonide/Formoterol 160/4.5 1 PUFF INH IH SCH ×2 (07:51→21:25)
[2021-05-23] MEDS: Piperacillin/Tazobactam 3.375 GM in 0.9 % Sodium Chloride Mini Bag 100 ML IVPB SCH (09:24)
[2021-05-23] MEDS: Nicotine 21 MG PATCH.TD24 TD SCH (09:25)
[2021-05-23] MEDS: Insulin LISPRO 300 UNITS/3 ML VIAL SUBQ SCH ×3 (09:26→17:33)
[2021-05-23] MEDS: SODIUM ZIRCONIUM CYCLOSILICATE 5 GM POWD.PACK PO SCH (09:28)
[2021-05-23] MEDS: Apixaban 5 MG TABLET PO SCH ×2 (09:31→20:45)
[2021-05-23] MEDS: predniSONE 20 MG TABLET PO SCH (09:31)
[2021-05-23] MEDS: QUEtiapine Fumarate 25 MG TABLET PO SCH ×2 (09:32→20:46)
[2021-05-23] MEDS: BuPROPion SR (12 HR) 100 MG TABLET PO SCH ×2 (09:32→20:45)
[2021-05-23] MEDS: Finasteride 5 MG TABLET PO SCH (09:39)
[2021-05-23] MEDS: Cholecalciferol (D-3) 1,000 UNIT (25MCG) TABLET PO SCH (09:39)
[2021-05-23] MEDS: Aspirin Enteric Coated 81 MG Tablet PO SCH (09:39)
[2021-05-23] MEDS ORDERED: Furosemide 20 MG/2 ML VIAL IVP ONE (14:23)
[2021-05-23] MEDS: Insulin DETEMIR 100 UNIT/ML X5UNITS SUBQ SCH (20:50)
[2021-05-23] MEDS: Ipratropium/Albuterol Neb 3 ML IH SCH (21:26)
[2021-05-24] MEDS: Ipratropium/Albuterol Neb 3 ML IH SCH ×7 (00:39→23:03)
[2021-05-24] MEDS: *HR* OxyCODONE Immed Rel 5 MG TABLET PO PRN ×4 (00:56→17:18)
[2021-05-24 02:25] LABS: Potassium 5.3 mEq/L (3.5-5.1)
[2021-05-24] MEDS: Aspirin Enteric Coated 81 MG Tablet PO SCH (05:29)
[2021-05-24] MEDS: Finasteride 5 MG TABLET PO SCH (05:30)
[2021-05-24] MEDS: Cholecalciferol (D-3) 1,000 UNIT (25MCG) TABLET PO SCH (05:30)
[2021-05-24] MEDS: SODIUM ZIRCONIUM CYCLOSILICATE 5 GM POWD.PACK PO SCH (07:30)
[2021-05-24] MEDS: QUEtiapine Fumarate 25 MG TABLET PO SCH ×2 (07:30→20:10)
[2021-05-24] MEDS: Apixaban 5 MG TABLET PO SCH (07:30)
[2021-05-24] MEDS: BuPROPion SR (12 HR) 100 MG TABLET PO SCH ×2 (07:30→20:11)
[2021-05-24] MEDS: Nicotine 21 MG PATCH.TD24 TD SCH (07:31)
[2021-05-24] MEDS: Insulin LISPRO 300 UNITS/3 ML VIAL SUBQ SCH ×3 (07:36→17:19)
[2021-05-24] MEDS: Budesonide/Formoterol 160/4.5 1 PUFF INH IH SCH ×2 (07:40→20:00)
[2021-05-24] MEDS: Vancomycin 1,250 MG/262.5 ML IV.SOLN IVPB SCH (10:49)
[2021-05-24] MEDS ORDERED: Furosemide 40 MG/4 ML VIAL IVP ONE (14:11)
[2021-05-24] MEDS: Insulin DETEMIR 100 UNIT/ML X5UNITS SUBQ SCH (20:10)
[2021-05-25 01:35] LABS: Hematocrit 29.8 % (37.5-50.1); Hemoglobin 8.6 g/dL (12.9-16.9); Mean Corpuscular HGB Conc 28.9 g/dL (31.6-35.5); Mean Corpuscular Hemoglobin 24.6 pg (28.0-33.3); Mean Corpuscular Volume 85.1 fL (83.0-100.0); Mean Platelet Volume 11.8 fL (9.4-12.4); Platelet Count 361 K/mcL (140-400); White Blood Count 12.6 K/mcL (4.3-11.1)
[2021-05-25 01:48] LABS: BUN/Creatinine Ratio 39 (6-26); Blood Urea Nitrogen 50 mg/dL (8-23); Calcium 9.1 mg/dL (8.6-10.3); Carbon Dioxide 40 mEq/L (23-29); Chloride 97 mEq/L (98-107); Glucose 157 mg/dL (70-105); Osmolality,Calculated 305 (280-300); Potassium 4.8 mEq/L (3.5-5.1); Sodium 139 mEq/L (136-145); eGFR For African Americans > 60 (> 60); eGFR For Non-African Americans 56 (> 60)
[2021-05-25] MEDS: Ipratropium/Albuterol Neb 3 ML IH SCH ×5 (03:42→19:44)
[2021-05-25] MEDS: Budesonide/Formoterol 160/4.5 1 PUFF INH IH SCH ×2 (07:48→19:46)
[2021-05-25] MEDS: Insulin LISPRO 300 UNITS/3 ML VIAL SUBQ SCH ×3 (10:01→16:56)
[2021-05-25] MEDS ORDERED: *HR* Midazolam HCl 2 MG/2 ML VIAL ONE (11:53)
[2021-05-25] MEDS ORDERED: *HR* Propofol 200 MG/20 ML VIAL IVP ONE (11:53)
[2021-05-25] MEDS ORDERED: Ketamine HCL *QUVA* 50mg (1mL) SYRINGE ONE (11:53)
[2021-05-25] MEDS ORDERED: Bupivacaine/Clonidine Syringe 20 ML, Syringe LUER-LOK 1 EACH TP ONE (12:00)
[2021-05-25] MEDS ORDERED: Furosemide 40 MG/4 ML VIAL IVP ONE ×2 (12:19→15:15)
[2021-05-25] MEDS ORDERED: Ondansetron 4 MG/2 ML VIAL ONE (12:40)
[2021-05-25] MEDS ORDERED: D5% in Water 1,000 ML IVC PRN (15:15)
[2021-05-25] MEDS ORDERED: Ondansetron 4 MG/2 ML VIAL IVP PRN (15:15)
[2021-05-25] MEDS ORDERED: Perflutren Lipid Microsphere 1.3 ML in 0.9 % Sodium Chloride 8.7 ML IVP PRN (15:15)
[2021-05-25] MEDS ORDERED: *HR* OxyCODONE Immed Rel 5 MG TABLET PO PRN ×2 (15:15)
[2021-05-25] MEDS ORDERED: Dextrose Gel 15 GM/37.5 ML TUBE PO PRN ×2 (15:15)
[2021-05-25] MEDS ORDERED: *HR* Metoprolol 5 MG/5 ML VIAL IVP PRN (15:15)
[2021-05-25] MEDS ORDERED: Naloxone 0.4 MG/ML INJ IVP PRN (15:15)
[2021-05-25] MEDS ORDERED: *HR* Dextrose 50 % in Water (Syg) 50 ML SYRINGE IVP PRN (15:15)
[2021-05-25] MEDS: Vancomycin 1,250 MG/262.5 ML IV.SOLN IVPB SCH (16:36)
[2021-05-25] MEDS: Aspirin Enteric Coated 81 MG Tablet PO SCH (19:09)
[2021-05-25] MEDS: Finasteride 5 MG TABLET PO SCH (19:10)
[2021-05-25] MEDS: Cholecalciferol (D-3) 1,000 UNIT (25MCG) TABLET PO SCH (19:11)
[2021-05-25] MEDS: SODIUM ZIRCONIUM CYCLOSILICATE 5 GM POWD.PACK PO SCH (19:11)
[2021-05-25] MEDS: QUEtiapine Fumarate 25 MG TABLET PO SCH ×2 (19:12→20:37)
[2021-05-25] MEDS: Nicotine 21 MG PATCH.TD24 TD SCH (19:12)
[2021-05-25] MEDS: BuPROPion SR (12 HR) 100 MG TABLET PO SCH ×2 (19:13→20:36)
[2021-05-25] MEDS ORDERED: Insulin DETEMIR 100 UNIT/ML X5UNITS SUBQ SCH (21:00)
[2021-05-26] MEDS: Ipratropium/Albuterol Neb 3 ML IH SCH ×5 (00:36→16:00)
[2021-05-26 06:12] LABS: BUN/Creatinine Ratio 39 (6-26); Blood Urea Nitrogen 39 mg/dL (8-23); Calcium 9.1 mg/dL (8.6-10.3); Carbon Dioxide 40 mEq/L (23-29); Chloride 98 mEq/L (98-107); Glucose 168 mg/dL (70-105); Osmolality,Calculated 301 (280-300); Sodium 139 mEq/L (136-145); eGFR For African Americans > 60 (> 60); eGFR For Non-African Americans > 60 (> 60)
[2021-05-26] MEDS ORDERED: Cholecalciferol (D-3) 1,000 UNIT (25MCG) TABLET PO SCH (07:00)
[2021-05-26] MEDS ORDERED: Finasteride 5 MG TABLET PO SCH (07:00)
[2021-05-26] MEDS ORDERED: Aspirin Enteric Coated 81 MG Tablet PO SCH (07:00)
[2021-05-26 07:12] LABS: Mean Corpuscular Hemoglobin 24.2 pg (28.0-33.3)
[2021-05-26 07:13] LABS: Hematocrit 30.3 % (37.5-50.1); Hemoglobin 8.5 g/dL (12.9-16.9); Mean Corpuscular HGB Conc 28.1 g/dL (31.6-35.5); Mean Corpuscular Volume 86.3 fL (83.0-100.0); Mean Platelet Volume 12.3 fL (9.4-12.4); Platelet Count 334 K/mcL (140-400); Red Blood Count 3.51 M/mcL (4.19-5.50); Red Cell Distribution Width 18.6 % (11.5-14.5); White Blood Count 11.3 K/mcL (4.3-11.1)
[2021-05-26] MEDS: Budesonide/Formoterol 160/4.5 1 PUFF INH IH SCH (07:42)
[2021-05-26] MEDS ORDERED: Nicotine 21 MG PATCH.TD24 TD SCH (09:00)
[2021-05-26] MEDS: BuPROPion SR (12 HR) 100 MG TABLET PO SCH (10:01)
[2021-05-26] MEDS: QUEtiapine Fumarate 25 MG TABLET PO SCH (10:02)
[2021-05-26] MEDS: Insulin LISPRO 300 UNITS/3 ML VIAL SUBQ SCH ×3 (10:03→17:41)
[2021-05-26 14:39] VITALS: BP 98/51; PULSE 83; TEMP 98.3; O2SAT 94
[2021-05-26] MEDS ORDERED: Vancomycin 1,250 MG/262.5 ML IV.SOLN IVPB SCH (17:00)
== END 2021-05-26 18:03 | disposition home health service (06) | DRG 616 ==
LOC: EMEROOARM 21:44 → 3BNU 21:44 → SUATTDRO 05-18 05:51 → 3BNU 05-18 06:14 → SUATTDRO 05-19 13:18
PROVIDERS: ADMIT Internal Medicine; ATTEND Internal Medicine

== ENCOUNTER 2021-07-04 23:24 | Inpatient (IN) ==
[2021-07-04] MEDS ORDERED: Ipratropium/Albuterol Neb 3 ML IH ONE (23:37)
[2021-07-04] MEDS ORDERED: methylPREDNISolone 125 MG in 0.9 % Sodium Chloride 100 ML IVPB ONE (23:37)
[2021-07-04] MEDS ORDERED: methylPREDNISolone 125 MG/2 ML VIAL IVP ONE (23:45)
[2021-07-04] MEDS ORDERED: 0.9 % Sodium Chloride 1,000 ML IVC SCH (23:45)
[2021-07-05 00:24] LABS: INR 1.5; Prothrombin Time 16.8 Seconds (9.4-12.1)
[2021-07-05 00:26] LABS: Alanine Aminotransferase 9 Units/L (7-52); Albumin/Globulin Ratio 0.7 (1.1-2.2); Alkaline Phosphatase 75 Units/L (34-104); Aspartate Amino Transferase 20 Units/L (13-39); BUN/Creatinine Ratio 13 (6-26); Bilirubin,Direct 0.4 mg/dL (0.0-0.2); Bilirubin,Indirect 0.6 mg/dL (0.0-1.0); Blood Urea Nitrogen 17 mg/dL (8-23); Calcium 8.6 mg/dL (8.6-10.3); Carbon Dioxide 39 mEq/L (23-29); Chloride 96 mEq/L (98-107); Globulin 4.2 g/dL (2.4-3.5); Glucose 122 mg/dL (70-105); Magnesium 1.3 mg/dL (1.6-2.6); Osmolality,Calculated 291 (280-300); Phosphorous 2.4 mg/dL (2.7-4.5); Potassium 3.7 mEq/L (3.5-5.1); Sodium 139 mEq/L (136-145); Total Protein 7.2 g/dL (6.4-8.9); Troponin I 0.03 ng/mL (< 0.04); eGFR For African Americans > 60 (> 60); eGFR For Non-African Americans 55 (> 60)
[2021-07-05 00:27] LABS: Activated Partial Thrombo Time 38.2 Seconds (26.0-36.0)
[2021-07-05 00:32] LABS: Immature Granulocytes % 0.5 % (0-4); Mean Platelet Volume 11.1 fL (9.4-12.4)
[2021-07-05 00:34] LABS: Basophils # 0.1 K/mcL (0.0-0.2); Basophils % 0.8 %; Eosinophils # 0.4 K/mcL (0.0-0.6); Eosinophils % 4.2 %; Hematocrit 28.7 % (37.5-50.1); Immature Platelets 7.5 % (1.1-6.1); Lymphocytes # 1.3 K/mcL (0.6-4.6); Lymphocytes % 15.5 %; Mean Corpuscular HGB Conc 27.9 g/dL (31.6-35.5); Mean Corpuscular Hemoglobin 22.3 pg (28.0-33.3); Monocytes # 0.8 K/mcL (0.0-1.3); Monocytes % 9.5 %; Neutrophils # 5.8 K/mcL (1.6-8.9); Platelet Count 276 K/mcL (140-400); Red Blood Count 3.58 M/mcL (4.19-5.50); Red Cell Distribution Width 19.1 % (11.5-14.5); Segmented Neutrophils % 69.5 %; White Blood Count 8.4 K/mcL (4.3-11.1)
[2021-07-05 00:37] LABS: Mean Corpuscular Volume 80.2 fL (83.0-100.0)
[2021-07-05 01:00] LABS: Anisocytosis 1+ (Not Present); Hypochromasia Present (Not Present); Stomatocytes 1+ (Not Present)
[2021-07-05 01:01] LABS: Platelet Estimate Normal (Normal)
[2021-07-05] MEDS ORDERED: cefTRIAXone 1,000 MG in 0.9 % Sodium Chloride Mini Bag 100 ML IVPB ONE (01:34)
[2021-07-05] MEDS ORDERED: Azithromycin 500 MG in 0.9 % Sodium Chloride 250 ML IVPB ONE (01:34)
[2021-07-05] MEDS ORDERED: Furosemide 40 MG/4 ML VIAL IVP ONE (01:45)
[2021-07-05 02:16] LABS: Bilirubin,Urine Negative (Negative); Blood,Urine Negative (Negative); Clarity,Urine Clear (Clear); Color,Urine Light-Yellow (Yellow); Glucose,Urine (UA) Normal (Normal); Hyaline Casts,Urine Few per lpf (None Seen); Ketones,Urine Negative (Negative); Leukocyte Esterase,Urine Negative (Negative); Mucus,Urine Few per lpf (None-Few); Nitrite,Urine Negative (Negative); Protein,Urine 50 mg/dL (Neg-Trace); RBC,Urine 0-3 per hpf (0-3); Specific Gravity,Urine 1.009 (1.010-1.025); Squamous Epithelial Cell,Urine Few per hpf (None-Few); Urobilinogen,Urine Normal (Normal); WBC,Urine 0-3 per hpf (0-3)
[2021-07-05] MEDS ORDERED: Naloxone 0.4 MG/ML INJ IVP PRN (02:30)
[2021-07-05] MEDS ORDERED: *HR* LORazepam 0.5 MG TABLET PO ONE (03:21)
[2021-07-05] MEDS ORDERED: Dextrose 4 GM Chewable Tablets PO PRN ×2 (03:45)
[2021-07-05] MEDS ORDERED: D5% in Water 1,000 ML IVC PRN (03:45)
[2021-07-05] MEDS ORDERED: Saline Nasal Spray 44 ML BOTTLE NS PRN (03:50)
[2021-07-05] MEDS ORDERED: Saliva Stimulant 44.3ml BOTTLE PO PRN (03:50)
[2021-07-05] MEDS: Ipratropium/Albuterol Neb 3 ML IH SCH ×6 (04:05→23:08)
[2021-07-05] MEDS: QUEtiapine Fumarate 25 MG TABLET PO SCH ×3 (04:05→21:11)
[2021-07-05 04:18] LABS: Adenovirus Not Detected (Not Detect); Bordetella Pertussis Not Detected (Not Detect); Chlamydophila pneumoniae Not Detected (Not Detect); Coronavirus 229E Not Detected (Not Detect); Coronavirus HKU1 Not Detected (Not Detect); Coronavirus NL63 Not Detected (Not Detect); Coronavirus OC43 Not Detected (Not Detect); Human Metapneumovirus Not Detected (Not Detect); Human Rhinovirus/Enterovirus Not Detected (Not Detect); Influenza A Subtype 2009 H1 Not Detected (Not Detect); Influenza B Not Detected (Not Detect); Mycoplasma pneumoniae Not Detected (Not Detect); Parainfluenza Virus 1 Not Detected (Not Detect); Parainfluenza Virus 2 Not Detected (Not Detect); Parainfluenza Virus 3 Not Detected (Not Detect); Parainfluenza Virus 4 Not Detected (Not Detect); Respiratory Syncytial Virus Not Detected (Not Detect); SARS-CoV-2 Not Detected (Not Detect)
[2021-07-05] MEDS: Vancomycin 1,500 MG/265 ML IV.SOLN IVPB SCH ×2 (04:49→18:12)
[2021-07-05 04:55] LABS: ABG Base Excess 8 mEq/L (-2 to 3); ABG HCO3 35 mEq/L (21-27); ABG Oxygen Saturation 97 % (95-98); ABG PCO2 57 mmHg (35-45); ABG PH 7.39 pH Units (7.32-7.45); ABG PO2 93 mmHg (85-104); ABG TCO2 36 mEq/L (20-26); Blood Gas Modality BiLevel; Blood Gas Pressure Support 8 cm H2O
[2021-07-05] MEDS ORDERED: *HR* Metoprolol 5 MG/5 ML VIAL IVP ONE (05:16)
[2021-07-05] MEDS ORDERED: Dexmedetomidine HCl 400 MCG/100 ML MLS IVC SCH (05:45)
[2021-07-05 05:55] LABS: Immature Granulocytes % 0.6 % (0-4); Monocytes % 0.6 %
[2021-07-05 05:56] LABS: Basophils # 0.1 K/mcL (0.0-0.2); Basophils % 0.8 %; Eosinophils % 0.5 %; Hematocrit 27.8 % (37.5-50.1); Hemoglobin 7.7 g/dL (12.9-16.9); Lymphocytes # 0.2 K/mcL (0.6-4.6); Lymphocytes % 3.3 %; Mean Corpuscular HGB Conc 27.7 g/dL (31.6-35.5); Mean Corpuscular Hemoglobin 22.2 pg (28.0-33.3); Mean Corpuscular Volume 80.1 fL (83.0-100.0); Mean Platelet Volume 11.7 fL (9.4-12.4); Neutrophils # 6.2 K/mcL (1.6-8.9); Platelet Count 253 K/mcL (140-400); Red Blood Count 3.47 M/mcL (4.19-5.50); Red Cell Distribution Width 18.8 % (11.5-14.5); Segmented Neutrophils % 94.2 %; White Blood Count 6.6 K/mcL (4.3-11.1)
[2021-07-05 05:57] LABS: Estimated Average Glucose 183 mg/dl
[2021-07-05 05:58] LABS: Alanine Aminotransferase 10 Units/L (7-52); Albumin 3.1 g/dL (3.5-5.7); Albumin/Globulin Ratio 0.8 (1.1-2.2); Alkaline Phosphatase 73 Units/L (34-104); Aspartate Amino Transferase 19 Units/L (13-39); BUN/Creatinine Ratio 14 (6-26); Bilirubin,Total 0.9 mg/dL (0.3-1.0); Blood Urea Nitrogen 19 mg/dL (8-23); Calcium 8.6 mg/dL (8.6-10.3); Carbon Dioxide 36 mEq/L (23-29); Chloride 95 mEq/L (98-107); Globulin 3.7 g/dL (2.4-3.5); Glucose 242 mg/dL (70-105); Magnesium 1.8 mg/dL (1.6-2.6); Osmolality,Calculated 294 (280-300); Phosphorous 3.6 mg/dL (2.7-4.5); Potassium 4.5 mEq/L (3.5-5.1); Sodium 137 mEq/L (136-145); Total Protein 6.8 g/dL (6.4-8.9); eGFR For African Americans > 60 (> 60); eGFR For Non-African Americans 54 (> 60)
[2021-07-05] MEDS: MethylPREDNISolone 40 MG/ML VIAL IVP SCH ×3 (06:01→17:57)
[2021-07-05 06:04] LABS: INR 1.5; Prothrombin Time 17.2 Seconds (9.4-12.1)
[2021-07-05 06:07] LABS: Activated Partial Thrombo Time 36.4 Seconds (26.0-36.0)
[2021-07-05 07:09] LABS: Anisocytosis 1+ (Not Present); Hypochromasia Present (Not Present); Stomatocytes 1+ (Not Present)
[2021-07-05 07:10] LABS: Platelet Estimate Normal (Normal)
[2021-07-05] MEDS: Budesonide/Formoterol 160/4.5 1 PUFF INH IH SCH ×2 (07:45→20:29)
[2021-07-05] MEDS ORDERED: Albumin 25% 25gram/100mL 25 GM/100 ML IV.SOLN IVPB SCH (08:00)
[2021-07-05] MEDS ORDERED: Piperacillin/Tazobactam 3.375 GM in 0.9 % Sodium Chloride Mini Bag 100 ML IVPB SCH (08:00)
[2021-07-05] MEDS: Insulin LISPRO 300 UNITS/3 ML VIAL SUBQ SCH ×3 (08:19→18:13)
[2021-07-05] MEDS ORDERED: BuPROPion SR (12 HR) 100 MG TABLET PO SCH (09:00)
[2021-07-05] MEDS ORDERED: Furosemide 20 MG/2 ML VIAL IVP SCH ×4 (09:00→17:00)
[2021-07-05] MEDS ORDERED: Chlorhexidine Rinse 15 ML MOUTHWASH MM SCH (09:00)
[2021-07-05] MEDS: Dexmedetomidine HCl 400 MCG/100 ML MLS IVC SCH ×3 (09:38→22:45)
[2021-07-05] MEDS: Multivit/Ca/Min/Fe/FA 1 TAB TABLET PO SCH (09:44)
[2021-07-05] MEDS: Apixaban 5 MG TABLET PO SCH ×2 (09:44→21:10)
[2021-07-05] MEDS: Lactobacillus 1 EACH CAP.SPRINK PO SCH ×2 (09:44→21:10)
[2021-07-05] MEDS: Finasteride 5 MG TABLET PO SCH (09:49)
[2021-07-05] MEDS: Artificial Tears SOLN 15 ML BOTTLE BOTH EYES SCH ×2 (09:52→21:07)
[2021-07-05] MEDS: Aspirin Enteric Coated 81 MG Tablet PO SCH (09:52)
[2021-07-05] MEDS: Insulin DETEMIR 100 UNIT/ML X5UNITS SUBQ SCH ×2 (12:08→21:07)
[2021-07-05] MEDS: Micafungin 100 MG in 0.9 % Sodium Chloride Mini Bag 100 ML IVPB SCH (17:58)
[2021-07-05] MEDS: Cefepime HCl 2,000 MG in 0.9 % Sodium Chloride Mini Bag 100 ML IVPB SCH (17:59)
[2021-07-05] MEDS: Albumin 25% 25gram/100mL 25 GM/100 ML IV.SOLN IVPB SCH (20:03)
[2021-07-05] MEDS ORDERED: QUETIAPINE FUMARATE 150 MG PO SCH (21:00)
[2021-07-05] MEDS: Furosemide 20 MG/2 ML VIAL IVP SCH (21:07)
[2021-07-05] MEDS: metroNIDAZOLE 500 MG TABLET PO SCH (21:10)
[2021-07-06] MEDS: Insulin LISPRO 300 UNITS/3 ML VIAL SUBQ SCH ×4 (00:04→18:13)
[2021-07-06] MEDS: MethylPREDNISolone 40 MG/ML VIAL IVP SCH ×4 (00:04→17:38)
[2021-07-06] MEDS: Cefepime HCl 2,000 MG in 0.9 % Sodium Chloride Mini Bag 100 ML IVPB SCH ×3 (00:05→17:37)
[2021-07-06 03:46] LABS: Hemoglobin 7.8 g/dL (12.9-16.9); Immature Granulocytes % 0.5 % (0-4); Mean Platelet Volume 11.3 fL (9.4-12.4)
[2021-07-06 03:47] LABS: Basophils % 0.3 %; Lymphocytes # 0.4 K/mcL (0.6-4.6); Lymphocytes % 8.8 %; Mean Corpuscular HGB Conc 27.9 g/dL (31.6-35.5); Mean Corpuscular Hemoglobin 22.3 pg (28.0-33.3); Monocytes # 0.2 K/mcL (0.0-1.3); Monocytes % 3.8 %; Platelet Count 248 K/mcL (140-400); Red Cell Distribution Width 19.3 % (11.5-14.5); Segmented Neutrophils % 86.6 %
[2021-07-06 03:56] LABS: Neutrophils # 3.5 K/mcL (1.6-8.9)
[2021-07-06] MEDS: Ipratropium/Albuterol Neb 3 ML IH SCH ×6 (03:59→23:26)
[2021-07-06 04:29] LABS: % Iron Saturation 4 % (20-55); BUN/Creatinine Ratio 19 (6-26); Blood Urea Nitrogen 26 mg/dL (8-23); Calcium 8.8 mg/dL (8.6-10.3); Carbon Dioxide 41 mEq/L (23-29); Chloride 95 mEq/L (98-107); Ferritin 29 ng/mL (20-250); Glucose 149 mg/dL (70-105); Iron 11 mcg/dL (65-175); Osmolality,Calculated 302 (280-300); Potassium 4.3 mEq/L (3.5-5.1); Sodium 142 mEq/L (136-145); Transferrin 205 mg/dL (203-362); eGFR For African Americans > 60 (> 60); eGFR For Non-African Americans 51 (> 60)
[2021-07-06 04:32] LABS: Anisocytosis 2+ (Not Present); Hypochromasia Present (Not Present); Platelet Estimate Normal (Normal); Poikilocytosis 1+ (Not Present)
[2021-07-06 04:33] LABS: Microcytosis Present (Not Present); Target Cells 1+ (Not Present)
[2021-07-06 04:38] LABS: Folate 9.8 ng/mL (3.0-16.0)
[2021-07-06] MEDS: Albumin 25% 25gram/100mL 25 GM/100 ML IV.SOLN IVPB SCH (06:08)
[2021-07-06] MEDS: Vancomycin 1,500 MG/265 ML IV.SOLN IVPB SCH (06:09)
[2021-07-06] MEDS: Dexmedetomidine HCl 400 MCG/100 ML MLS IVC SCH ×2 (06:26→12:02)
[2021-07-06] MEDS: Finasteride 5 MG TABLET PO SCH ×2 (07:26→07:58)
[2021-07-06] MEDS: Aspirin Enteric Coated 81 MG Tablet PO SCH ×2 (07:26→07:59)
[2021-07-06] MEDS: Micafungin 100 MG in 0.9 % Sodium Chloride Mini Bag 100 ML IVPB SCH (07:57)
[2021-07-06] MEDS: metroNIDAZOLE 500 MG TABLET PO SCH ×3 (07:58→22:34)
[2021-07-06] MEDS: Furosemide 20 MG/2 ML VIAL IVP SCH (07:58)
[2021-07-06] MEDS: Multivit/Ca/Min/Fe/FA 1 TAB TABLET PO SCH (07:58)
[2021-07-06] MEDS: QUEtiapine Fumarate 25 MG TABLET PO SCH ×2 (07:58→22:37)
[2021-07-06] MEDS: Gabapentin 400 MG CAPSULE PO SCH ×4 (07:58→22:34)
[2021-07-06] MEDS: Lactobacillus 1 EACH CAP.SPRINK PO SCH ×2 (07:58→22:37)
[2021-07-06] MEDS: Apixaban 5 MG TABLET PO SCH ×2 (07:59→22:34)
[2021-07-06] MEDS: Budesonide/Formoterol 160/4.5 1 PUFF INH IH SCH ×2 (08:07→20:26)
[2021-07-06] MEDS: Insulin DETEMIR 100 UNIT/ML X5UNITS SUBQ SCH ×2 (08:20→22:26)
[2021-07-06] MEDS: Artificial Tears SOLN 15 ML BOTTLE BOTH EYES SCH ×2 (08:23→22:37)
[2021-07-06] MEDS ORDERED: Gadolinium Contrast Agent (WT Based) IV PRN (08:53)
[2021-07-06] MEDS ORDERED: Budesonide/Formoterol 160/4.5 1 PUFF INH IH SCH (09:00)
[2021-07-06] MEDS ORDERED: Vancomycin 1,500 MG/265 ML IV.SOLN IVPB SCH (18:00)
[2021-07-06] MEDS ORDERED: NON-FORMULARY MEDICATION 1 EACH EACH (Insulin Detemir [Levemir Flextouch] 100 UNIT/ML Insu SQ SCH (21:00)
[2021-07-06] MEDS: *HR* Promethazine 25 MG/ML VIAL IM PRN (22:25)
[2021-07-07] MEDS: Insulin LISPRO 300 UNITS/3 ML VIAL SUBQ SCH ×4 (00:42→16:49)
[2021-07-07] MEDS: Cefepime HCl 2,000 MG in 0.9 % Sodium Chloride Mini Bag 100 ML IVPB SCH ×3 (00:43→14:53)
[2021-07-07] MEDS: MethylPREDNISolone 40 MG/ML VIAL IVP SCH ×4 (00:43→16:55)
[2021-07-07] MEDS: Dexmedetomidine HCl 400 MCG/100 ML MLS IVC SCH ×2 (03:32→14:52)
[2021-07-07] MEDS: Ipratropium/Albuterol Neb 3 ML IH SCH ×6 (04:06→23:22)
[2021-07-07 06:30] LABS: Red Cell Distribution Width 19.5 % (11.5-14.5)
[2021-07-07 06:33] LABS: Hematocrit 26.2 % (37.5-50.1); Hemoglobin 7.3 g/dL (12.9-16.9); Immature Granulocytes % 0.7 % (0-4); Lymphocytes # 0.4 K/mcL (0.6-4.6); Lymphocytes % 5.8 %; Mean Corpuscular HGB Conc 27.9 g/dL (31.6-35.5); Mean Corpuscular Hemoglobin 22.8 pg (28.0-33.3); Mean Corpuscular Volume 81.9 fL (83.0-100.0); Mean Platelet Volume 11.8 fL (9.4-12.4); Monocytes # 0.3 K/mcL (0.0-1.3); Monocytes % 4.3 %; Platelet Count 241 K/mcL (140-400); Segmented Neutrophils % 89.2 %; White Blood Count 6.7 K/mcL (4.3-11.1)
[2021-07-07] MEDS: Aspirin Enteric Coated 81 MG Tablet PO SCH (06:33)
[2021-07-07] MEDS: Finasteride 5 MG TABLET PO SCH (06:33)
[2021-07-07] MEDS: Vancomycin 1,500 MG/265 ML IV.SOLN IVPB SCH (06:51)
[2021-07-07 07:27] LABS: Anisocytosis 1+ (Not Present); Hypochromasia Present (Not Present); Platelet Estimate Normal (Normal)
[2021-07-07] MEDS: Budesonide/Formoterol 160/4.5 1 PUFF INH IH SCH ×2 (07:43→19:49)
[2021-07-07] MEDS: metroNIDAZOLE 500 MG TABLET PO SCH ×3 (08:34→21:07)
[2021-07-07] MEDS: Lactobacillus 1 EACH CAP.SPRINK PO SCH ×2 (08:34→21:08)
[2021-07-07] MEDS: Apixaban 5 MG TABLET PO SCH ×2 (08:34→21:07)
[2021-07-07] MEDS: Multivit/Ca/Min/Fe/FA 1 TAB TABLET PO SCH (08:34)
[2021-07-07] MEDS: QUEtiapine Fumarate 25 MG TABLET PO SCH ×2 (08:35→21:06)
[2021-07-07] MEDS: Micafungin 100 MG in 0.9 % Sodium Chloride Mini Bag 100 ML IVPB SCH (08:35)
[2021-07-07] MEDS: Artificial Tears SOLN 15 ML BOTTLE BOTH EYES SCH ×2 (08:36→21:17)
[2021-07-07] MEDS: Insulin DETEMIR 100 UNIT/ML X5UNITS SUBQ SCH ×2 (08:46→21:17)
[2021-07-07] MEDS: Gabapentin 400 MG CAPSULE PO SCH ×4 (08:46→21:06)
[2021-07-07] MEDS ORDERED: Furosemide 20 MG/2 ML VIAL IVP SCH (09:00)
[2021-07-07 09:18] LABS: BUN/Creatinine Ratio 33 (6-26); Blood Urea Nitrogen 49 mg/dL (8-23); Calcium 8.4 mg/dL (8.6-10.3); Carbon Dioxide > 45 mEq/L (23-29); Chloride 94 mEq/L (98-107); Glucose 196 mg/dL (70-105); Osmolality,Calculated 316 (280-300); Potassium 4.2 mEq/L (3.5-5.1); Sodium 144 mEq/L (136-145); eGFR For African Americans 57 (> 60); eGFR For Non-African Americans 47 (> 60)
[2021-07-07 09:41] LABS: ABG Base Excess 18 mEq/L (-2 to 3); ABG HCO3 48 mEq/L (21-27); ABG Oxygen Saturation 80 % (95-98); ABG PCO2 102 mmHg (35-45); ABG PH 7.28 pH Units (7.32-7.45); ABG PO2 54 mmHg (85-104); ABG TCO2 > 50 mEq/L (20-26)
[2021-07-07] MEDS: *HR* Promethazine 25 MG/ML VIAL IM PRN (17:55)
[2021-07-08] MEDS: Cefepime HCl 2,000 MG in 0.9 % Sodium Chloride Mini Bag 100 ML IVPB SCH ×3 (00:28→15:54)
[2021-07-08] MEDS: MethylPREDNISolone 40 MG/ML VIAL IVP SCH ×4 (00:28→16:52)
[2021-07-08] MEDS: Insulin LISPRO 300 UNITS/3 ML VIAL SUBQ SCH ×4 (00:34→16:52)
[2021-07-08] MEDS: Dexmedetomidine HCl 400 MCG/100 ML MLS IVC SCH (01:16)
[2021-07-08] MEDS: Melatonin 3 MG TABLET PO PRN (01:23)
[2021-07-08] MEDS: *HR* Promethazine 25 MG/ML VIAL IM PRN ×3 (01:41→17:35)
[2021-07-08 02:35] LABS: Basophils % 0.1 %; Red Cell Distribution Width 19.6 % (11.5-14.5)
[2021-07-08 02:37] LABS: Hematocrit 28.5 % (37.5-50.1); Hemoglobin 7.5 g/dL (12.9-16.9); Immature Granulocytes % 0.8 % (0-4); Lymphocytes # 0.5 K/mcL (0.6-4.6); Lymphocytes % 7.2 %; Mean Corpuscular HGB Conc 26.3 g/dL (31.6-35.5); Mean Corpuscular Volume 83.6 fL (83.0-100.0); Mean Platelet Volume 11.7 fL (9.4-12.4); Monocytes # 0.3 K/mcL (0.0-1.3); Monocytes % 3.4 %; Neutrophils # 6.5 K/mcL (1.6-8.9); Nucleated Red Blood Cells 0.4 /100 WBC (0); Platelet Count 244 K/mcL (140-400); Red Blood Count 3.41 M/mcL (4.19-5.50); Segmented Neutrophils % 88.5 %; White Blood Count 7.3 K/mcL (4.3-11.1)
[2021-07-08 02:38] LABS: Anisocytosis 1+ (Not Present); Hypochromasia Present (Not Present); Platelet Estimate Normal (Normal)
[2021-07-08 03:08] LABS: Calcium 8.8 mg/dL (8.6-10.3); Potassium 4.4 mEq/L (3.5-5.1)
[2021-07-08] MEDS: Ipratropium/Albuterol Neb 3 ML IH SCH ×5 (04:20→19:57)
[2021-07-08] MEDS: Vancomycin 1,500 MG/265 ML IV.SOLN IVPB SCH (06:29)
[2021-07-08] MEDS: Multivit/Ca/Min/Fe/FA 1 TAB TABLET PO SCH (07:40)
[2021-07-08] MEDS: Finasteride 5 MG TABLET PO SCH (07:40)
[2021-07-08] MEDS: metroNIDAZOLE 500 MG TABLET PO SCH ×3 (07:40→21:07)
[2021-07-08] MEDS: Lactobacillus 1 EACH CAP.SPRINK PO SCH ×2 (07:40→21:06)
[2021-07-08] MEDS: Aspirin Enteric Coated 81 MG Tablet PO SCH (07:40)
[2021-07-08] MEDS: Apixaban 5 MG TABLET PO SCH ×2 (07:41→21:07)
[2021-07-08] MEDS: Insulin DETEMIR 100 UNIT/ML X5UNITS SUBQ SCH ×2 (07:41→21:48)
[2021-07-08] MEDS: Gabapentin 400 MG CAPSULE PO SCH ×4 (07:41→21:08)
[2021-07-08] MEDS: QUEtiapine Fumarate 25 MG TABLET PO SCH ×2 (07:41→21:08)
[2021-07-08] MEDS: Artificial Tears SOLN 15 ML BOTTLE BOTH EYES SCH ×2 (07:41→21:09)
[2021-07-08] MEDS: Micafungin 100 MG in 0.9 % Sodium Chloride Mini Bag 100 ML IVPB SCH (07:42)
[2021-07-08] MEDS: Budesonide/Formoterol 160/4.5 1 PUFF INH IH SCH ×2 (07:48→19:57)
[2021-07-08 10:56] LABS: Mycoplasma pneumoniae IgG 2.2 U/L (<=0.09)
[2021-07-08] MEDS ORDERED: *HR* OxyCODONE Immed Rel 5 MG TABLET PO ONE (11:16)
[2021-07-08] MEDS ORDERED: *HR* Metoprolol 5 MG/5 ML VIAL IVP ONE (18:41)
[2021-07-08] MEDS: Acetaminophen 325 MG TABLET PO PRN (21:07)
[2021-07-08] MEDS: Baclofen 10 MG TABLET PO PRN (21:07)
[2021-07-08] MEDS ORDERED: *HR* LORazepam 2 MG/ML VIAL IVP ONE (21:11)
[2021-07-09] MEDS: Ipratropium/Albuterol Neb 3 ML IH SCH ×7 (00:12→23:25)
[2021-07-09] MEDS: MethylPREDNISolone 40 MG/ML VIAL IVP SCH ×4 (00:41→16:27)
[2021-07-09] MEDS: Cefepime HCl 2,000 MG in 0.9 % Sodium Chloride Mini Bag 100 ML IVPB SCH ×2 (00:43→07:42)
[2021-07-09] MEDS: Insulin LISPRO 300 UNITS/3 ML VIAL SUBQ SCH ×4 (01:47→16:09)
[2021-07-09] MEDS: Dexmedetomidine HCl 400 MCG/100 ML MLS IVC SCH ×2 (02:46→16:59)
[2021-07-09 05:51] LABS: Basophils % 0.1 %; Hemoglobin 7.4 g/dL (12.9-16.9)
[2021-07-09 05:52] LABS: Hematocrit 27.1 % (37.5-50.1); Immature Granulocytes % 0.9 % (0-4); Lymphocytes # 0.4 K/mcL (0.6-4.6); Lymphocytes % 5.6 %; Mean Corpuscular HGB Conc 27.3 g/dL (31.6-35.5); Mean Corpuscular Hemoglobin 22.8 pg (28.0-33.3); Mean Corpuscular Volume 83.6 fL (83.0-100.0); Mean Platelet Volume 11.1 fL (9.4-12.4); Monocytes # 0.4 K/mcL (0.0-1.3); Monocytes % 4.9 %; Neutrophils # 6.9 K/mcL (1.6-8.9); Nucleated Red Blood Cells 0.4 /100 WBC (0); Platelet Count 191 K/mcL (140-400); Red Blood Count 3.24 M/mcL (4.19-5.50); Red Cell Distribution Width 19.3 % (11.5-14.5); Segmented Neutrophils % 88.5 %; White Blood Count 7.8 K/mcL (4.3-11.1)
[2021-07-09 06:14] LABS: Hypochromasia Present (Not Present); Platelet Estimate Normal (Normal); Stomatocytes 1+ (Not Present)
[2021-07-09 06:18] LABS: Calcium 8.9 mg/dL (8.6-10.3); Potassium 5.3 mEq/L (3.5-5.1)
[2021-07-09] MEDS: Micafungin 100 MG in 0.9 % Sodium Chloride Mini Bag 100 ML IVPB SCH (07:34)
[2021-07-09] MEDS: Budesonide/Formoterol 160/4.5 1 PUFF INH IH SCH ×2 (07:36→19:51)
[2021-07-09] MEDS: Artificial Tears SOLN 15 ML BOTTLE BOTH EYES SCH ×2 (07:43→19:56)
[2021-07-09] MEDS: Finasteride 5 MG TABLET PO SCH (07:50)
[2021-07-09] MEDS: Aspirin Enteric Coated 81 MG Tablet PO SCH (07:50)
[2021-07-09] MEDS: metroNIDAZOLE 500 MG TABLET PO SCH ×3 (07:50→19:55)
[2021-07-09] MEDS: Lactobacillus 1 EACH CAP.SPRINK PO SCH ×2 (07:50→19:54)
[2021-07-09] MEDS: Apixaban 5 MG TABLET PO SCH ×2 (07:50→19:54)
[2021-07-09] MEDS: Gabapentin 400 MG CAPSULE PO SCH ×3 (07:50→19:54)
[2021-07-09] MEDS: Multivit/Ca/Min/Fe/FA 1 TAB TABLET PO SCH (07:50)
[2021-07-09] MEDS: QUEtiapine Fumarate 25 MG TABLET PO SCH ×2 (07:50→19:56)
[2021-07-09] MEDS: Insulin DETEMIR 100 UNIT/ML X5UNITS SUBQ SCH ×2 (07:54→19:57)
[2021-07-09] MEDS ORDERED: Vancomycin 1,250 MG/262.5 ML IV.SOLN IVPB SCH (12:00)
[2021-07-09] MEDS: Acetaminophen 325 MG TABLET PO PRN (12:23)
[2021-07-09] MEDS: Baclofen 10 MG TABLET PO PRN (13:54)
[2021-07-09] MEDS: *HR* Promethazine 25 MG/ML VIAL IM PRN (14:42)
[2021-07-09] MEDS: Cefepime HCl 2,000 MG in 0.9 % Sodium Chloride 10 ML IVP SCH (19:57)
[2021-07-10] MEDS: MethylPREDNISolone 40 MG/ML VIAL IVP SCH ×5 (00:07→23:41)
[2021-07-10] MEDS: Dexmedetomidine HCl 400 MCG/100 ML MLS IVC SCH ×2 (00:07→07:29)
[2021-07-10] MEDS: Insulin LISPRO 300 UNITS/3 ML VIAL SUBQ SCH ×4 (00:07→18:18)
[2021-07-10 03:16] LABS: Basophils % 0.2 %; Hemoglobin 7.7 g/dL (12.9-16.9); Immature Granulocytes % 0.8 % (0-4); Lymphocytes # 0.4 K/mcL (0.6-4.6); Lymphocytes % 6.5 %; Mean Corpuscular HGB Conc 26.6 g/dL (31.6-35.5); Mean Corpuscular Hemoglobin 22.1 pg (28.0-33.3); Mean Corpuscular Volume 83.3 fL (83.0-100.0); Mean Platelet Volume 11.7 fL (9.4-12.4); Monocytes # 0.2 K/mcL (0.0-1.3); Monocytes % 3.5 %; Neutrophils # 5.8 K/mcL (1.6-8.9); Nucleated Red Blood Cells 0.3 /100 WBC (0); Platelet Count 183 K/mcL (140-400); Red Blood Count 3.48 M/mcL (4.19-5.50); Red Cell Distribution Width 19.3 % (11.5-14.5); White Blood Count 6.5 K/mcL (4.3-11.1)
[2021-07-10 03:18] LABS: Hypochromasia Present (Not Present); Platelet Estimate Normal (Normal)
[2021-07-10 03:33] LABS: BUN/Creatinine Ratio 58 (6-26); Blood Urea Nitrogen 74 mg/dL (8-23); Carbon Dioxide 37 mEq/L (23-29); Chloride 98 mEq/L (98-107); Glucose 281 mg/dL (70-105); Osmolality,Calculated 320 (280-300); Potassium 5.8 mEq/L (3.5-5.1); Sodium 139 mEq/L (136-145); eGFR For African Americans > 60 (> 60); eGFR For Non-African Americans 57 (> 60)
[2021-07-10] MEDS: Ipratropium/Albuterol Neb 3 ML IH SCH ×5 (04:25→21:06)
[2021-07-10] MEDS: Micafungin 100 MG in 0.9 % Sodium Chloride Mini Bag 100 ML IVPB SCH (07:42)
[2021-07-10] MEDS: Budesonide/Formoterol 160/4.5 1 PUFF INH IH SCH ×2 (07:46→21:06)
[2021-07-10] MEDS: Cefepime HCl 2,000 MG in 0.9 % Sodium Chloride 10 ML IVP SCH (07:47)
[2021-07-10] MEDS: Artificial Tears SOLN 15 ML BOTTLE BOTH EYES SCH ×2 (07:50→19:42)
[2021-07-10] MEDS: Aspirin Enteric Coated 81 MG Tablet PO SCH (07:51)
[2021-07-10] MEDS: metroNIDAZOLE 500 MG TABLET PO SCH ×3 (07:51→19:44)
[2021-07-10] MEDS: Apixaban 5 MG TABLET PO SCH ×2 (07:51→19:38)
[2021-07-10] MEDS: Multivit/Ca/Min/Fe/FA 1 TAB TABLET PO SCH (07:51)
[2021-07-10] MEDS: QUEtiapine Fumarate 25 MG TABLET PO SCH ×2 (07:51→19:44)
[2021-07-10] MEDS: Finasteride 5 MG TABLET PO SCH (07:51)
[2021-07-10] MEDS: Lactobacillus 1 EACH CAP.SPRINK PO SCH ×2 (07:52→19:44)
[2021-07-10] MEDS: Gabapentin 400 MG CAPSULE PO SCH ×3 (07:52→19:42)
[2021-07-10] MEDS: Insulin DETEMIR 100 UNIT/ML X5UNITS SUBQ SCH ×2 (07:58→19:42)
[2021-07-10] MEDS ORDERED: *HR* FentaNYL (PF) 100 MCG/2 ML VIAL ONE (12:38)
[2021-07-10] MEDS ORDERED: Acetaminophen IV 1,000 MG/100 ML BAG IVPB ONE (12:40)
[2021-07-10] MEDS ORDERED: *HR* FentaNYL (PF) 100 MCG/2 ML VIAL IVP PRN (12:42)
[2021-07-10] MEDS ORDERED: *HR* Propofol 200 MG/20 ML VIAL IVP ONE (12:42)
[2021-07-10] MEDS ORDERED: Lidocaine -MPF 2% 5 ML VIAL ONE (12:44)
[2021-07-10] MEDS ORDERED: Lidocaine 1% 20 ML MDV ONE (12:47)
[2021-07-10] MEDS ORDERED: *HR* Succinylcholine 200 MG/10 ML VIAL IVP ONE ×2 (12:47)
[2021-07-10] MEDS: *HR* HYDROmorphone PF 0.5 MG/0.5 ML SYRINGE IVP PRN ×2 (12:57→13:05)
[2021-07-10] MEDS ORDERED: *HR* Midazolam HCl 2 MG/2 ML VIAL ONE (13:00)
[2021-07-10] MEDS ORDERED: Ketamine HCL *QUVA* 50mg (1mL) SYRINGE ONE ×2 (13:01→14:15)
[2021-07-10] MEDS ORDERED: *HR* HYDROmorphone (PF) 1 MG/ML SYRINGE IVP PRN (16:33)
[2021-07-10 20:23] LABS: Hematocrit 29.4 % (37.5-50.1); Hemoglobin 7.8 g/dL (12.9-16.9); Immature Platelets 12.8 % (1.1-6.1); Mean Corpuscular HGB Conc 26.5 g/dL (31.6-35.5); Mean Corpuscular Hemoglobin 22.3 pg (28.0-33.3); Mean Corpuscular Volume 84.2 fL (83.0-100.0); Mean Platelet Volume 12.1 fL (9.4-12.4); Red Blood Count 3.49 M/mcL (4.19-5.50); Red Cell Distribution Width 19.3 % (11.5-14.5); White Blood Count 18.6 K/mcL (4.3-11.1)
[2021-07-10] MEDS: Acetaminophen 325 MG TABLET PO PRN (20:32)
[2021-07-10 21:02] LABS: BUN/Creatinine Ratio 62 (6-26); Blood Urea Nitrogen 74 mg/dL (8-23); Calcium 9.3 mg/dL (8.6-10.3); Carbon Dioxide 42 mEq/L (23-29); Chloride 101 mEq/L (98-107); Glucose 178 mg/dL (70-105); Osmolality,Calculated 322 (280-300); Potassium 5.3 mEq/L (3.5-5.1); Sodium 143 mEq/L (136-145); eGFR For African Americans > 60 (> 60); eGFR For Non-African Americans > 60 (> 60)
[2021-07-10] MEDS ORDERED: SODIUM ZIRCONIUM CYCLOSILICATE 5 GM POWD.PACK PO SCH (21:15)
[2021-07-10] MEDS ORDERED: 0.9 % Sodium Chloride 500 ML IVC ONE (21:31)
[2021-07-10] MEDS ORDERED: Albumin 25% 25gram/100mL 25 GM/100 ML IV.SOLN IVPB ONE (21:31)
[2021-07-10] MEDS: Nicotine 21 MG PATCH.TD24 TD SCH (23:41)
[2021-07-11] MEDS: Ipratropium/Albuterol Neb 3 ML IH SCH ×7 (00:41→23:59)
[2021-07-11 03:19] LABS: Basophils % 0.1 %
[2021-07-11 03:30] LABS: Immature Granulocytes % 0.6 % (0-4); Red Cell Distribution Width 18.9 % (11.5-14.5)
[2021-07-11 03:32] LABS: Hemoglobin 7.3 g/dL (12.9-16.9); Immature Platelets 11.6 % (1.1-6.1); Lymphocytes # 0.8 K/mcL (0.6-4.6); Lymphocytes % 5.7 %; Mean Corpuscular HGB Conc 28.1 g/dL (31.6-35.5); Mean Corpuscular Hemoglobin 22.3 pg (28.0-33.3); Mean Corpuscular Volume 79.5 fL (83.0-100.0); Monocytes % 5.6 %; Neutrophils # 11.7 K/mcL (1.6-8.9); Platelet Count 144 K/mcL (140-400); Red Blood Count 3.27 M/mcL (4.19-5.50); White Blood Count 13.3 K/mcL (4.3-11.1)
[2021-07-11 03:33] LABS: Monocytes # 0.7 K/mcL (0.0-1.3)
[2021-07-11 03:51] LABS: Anisocytosis 1+ (Not Present); Hypochromasia Present (Not Present); Platelet Estimate Normal (Normal)
[2021-07-11 04:42] LABS: BUN/Creatinine Ratio 63 (6-26); Blood Urea Nitrogen 72 mg/dL (8-23); Calcium 9.2 mg/dL (8.6-10.3); Carbon Dioxide 41 mEq/L (23-29); Chloride 103 mEq/L (98-107); Glucose 139 mg/dL (70-105); Osmolality,Calculated 321 (280-300); Potassium 5.1 mEq/L (3.5-5.1); Sodium 144 mEq/L (136-145); eGFR For African Americans > 60 (> 60); eGFR For Non-African Americans > 60 (> 60)
[2021-07-11] MEDS: Insulin LISPRO 300 UNITS/3 ML VIAL SUBQ SCH ×4 (06:11→17:05)
[2021-07-11] MEDS: MethylPREDNISolone 40 MG/ML VIAL IVP SCH ×3 (06:11→17:08)
[2021-07-11] MEDS: Budesonide/Formoterol 160/4.5 1 PUFF INH IH SCH ×2 (07:28→20:46)
[2021-07-11] MEDS: *HR* Promethazine 25 MG/ML VIAL IM PRN (07:59)
[2021-07-11] MEDS: Gabapentin 400 MG CAPSULE PO SCH ×3 (08:02→20:37)
[2021-07-11] MEDS: Apixaban 5 MG TABLET PO SCH ×2 (08:02→20:36)
[2021-07-11] MEDS: Lactobacillus 1 EACH CAP.SPRINK PO SCH ×2 (08:02→20:36)
[2021-07-11] MEDS: Multivit/Ca/Min/Fe/FA 1 TAB TABLET PO SCH (08:02)
[2021-07-11] MEDS: Aspirin Enteric Coated 81 MG Tablet PO SCH (08:02)
[2021-07-11] MEDS: QUEtiapine Fumarate 25 MG TABLET PO SCH ×2 (08:03→20:37)
[2021-07-11] MEDS: metroNIDAZOLE 500 MG TABLET PO SCH ×3 (08:03→20:36)
[2021-07-11] MEDS: Finasteride 5 MG TABLET PO SCH (08:04)
[2021-07-11] MEDS: Nicotine 21 MG PATCH.TD24 TD SCH (08:09)
[2021-07-11] MEDS: Artificial Tears SOLN 15 ML BOTTLE BOTH EYES SCH ×2 (09:14→20:33)
[2021-07-11] MEDS: Insulin DETEMIR 100 UNIT/ML X5UNITS SUBQ SCH ×2 (09:14→20:35)
[2021-07-11] MEDS: Dexmedetomidine HCl 400 MCG/100 ML MLS IVC SCH ×2 (09:17→23:39)
[2021-07-11] MEDS: Morphine Sulfate 2 MG/ML SYRINGE IVP PRN (11:28)
[2021-07-11] MEDS: *HR* HYDROmorphone (PF) 1 MG/ML SYRINGE IVP PRN ×2 (13:35→17:09)
[2021-07-11] MEDS ORDERED: Isovue-370 500 ML BOTTLE IVP ONE (15:34)
[2021-07-11] MEDS: Haloperidol Lactate 5 MG/ML VIAL IVP PRN (18:51)
[2021-07-12] MEDS: MethylPREDNISolone 40 MG/ML VIAL IVP SCH ×3 (00:06→12:19)
[2021-07-12] MEDS: Insulin LISPRO 300 UNITS/3 ML VIAL SUBQ SCH ×4 (00:06→17:54)
[2021-07-12] MEDS: Ipratropium/Albuterol Neb 3 ML IH SCH ×3 (03:53→11:10)
[2021-07-12 03:58] LABS: Basophils % 0.2 %; Hemoglobin 7.6 g/dL (12.9-16.9); Mean Corpuscular Hemoglobin 22.6 pg (28.0-33.3); Red Blood Count 3.37 M/mcL (4.19-5.50)
[2021-07-12 04:00] LABS: Hematocrit 27.7 % (37.5-50.1); Immature Granulocytes % 1.3 % (0-4); Lymphocytes # 0.4 K/mcL (0.6-4.6); Lymphocytes % 2.8 %; Mean Corpuscular HGB Conc 27.4 g/dL (31.6-35.5); Mean Corpuscular Volume 82.2 fL (83.0-100.0); Monocytes # 0.4 K/mcL (0.0-1.3); Monocytes % 3.2 %; Neutrophils # 11.8 K/mcL (1.6-8.9); Platelet Count 141 K/mcL (140-400); Red Cell Distribution Width 19.3 % (11.5-14.5); Segmented Neutrophils % 92.5 %; White Blood Count 12.7 K/mcL (4.3-11.1)
[2021-07-12 04:26] LABS: BUN/Creatinine Ratio 69 (6-26); Blood Urea Nitrogen 67 mg/dL (8-23); Calcium 9.1 mg/dL (8.6-10.3); Carbon Dioxide 41 mEq/L (23-29); Chloride 101 mEq/L (98-107); Glucose 221 mg/dL (70-105); Osmolality,Calculated 322 (280-300); Phosphorous 2.7 mg/dL (2.7-4.5); Potassium 5.9 mEq/L (3.5-5.1); Sodium 143 mEq/L (136-145); eGFR For African Americans > 60 (> 60); eGFR For Non-African Americans > 60 (> 60)
[2021-07-12 05:15] LABS: Hypochromasia Present (Not Present); Platelet Estimate Normal (Normal)
[2021-07-12] MEDS: Budesonide/Formoterol 160/4.5 1 PUFF INH IH SCH ×2 (07:18→20:30)
[2021-07-12] MEDS ORDERED: Insulin Human Regular 10 UNIT in 0.9 % Sodium Chloride 10 ML IV ONE (07:59)
[2021-07-12] MEDS ORDERED: *HR* Dextrose 50 % in Water (Vial) 50 ML VIAL IVP ONE (07:59)
[2021-07-12] MEDS: Nicotine 21 MG PATCH.TD24 TD SCH (09:08)
[2021-07-12] MEDS: Artificial Tears SOLN 15 ML BOTTLE BOTH EYES SCH ×2 (09:09→19:52)
[2021-07-12] MEDS: SODIUM ZIRCONIUM CYCLOSILICATE 5 GM POWD.PACK PO SCH (09:09)
[2021-07-12] MEDS: Insulin DETEMIR 100 UNIT/ML X5UNITS SUBQ SCH ×2 (09:09→19:59)
[2021-07-12] MEDS: Morphine Sulfate 2 MG/ML SYRINGE IVP PRN (09:10)
[2021-07-12] MEDS: Gabapentin 400 MG CAPSULE PO SCH ×3 (09:11→19:51)
[2021-07-12] MEDS: QUEtiapine Fumarate 25 MG TABLET PO SCH ×2 (09:11→19:52)
[2021-07-12] MEDS: Lactobacillus 1 EACH CAP.SPRINK PO SCH ×2 (09:11→19:51)
[2021-07-12] MEDS: Apixaban 5 MG TABLET PO SCH ×2 (09:11→19:52)
[2021-07-12] MEDS: metroNIDAZOLE 500 MG TABLET PO SCH ×3 (09:11→19:52)
[2021-07-12] MEDS: Multivit/Ca/Min/Fe/FA 1 TAB TABLET PO SCH (09:11)
[2021-07-12] MEDS: Finasteride 5 MG TABLET PO SCH (09:43)
[2021-07-12] MEDS: Aspirin Enteric Coated 81 MG Tablet PO SCH (09:43)
[2021-07-12] MEDS: Dexmedetomidine HCl 400 MCG/100 ML MLS IVC SCH (10:06)
[2021-07-12] MEDS: *HR* HYDROmorphone (PF) 1 MG/ML SYRINGE IVP PRN (10:41)
[2021-07-12] MEDS: *HR* Metoprolol 5 MG/5 ML VIAL IVP PRN (12:54)
[2021-07-12] MEDS: Haloperidol Lactate 5 MG/ML VIAL IVP PRN ×2 (13:46→23:33)
[2021-07-12] MEDS: traZODone 50 MG TABLET PO SCH (19:52)
[2021-07-12] MEDS: Metoprolol XL (24 HR) Succ 25 MG TAB.ER.24H PO SCH (19:52)
[2021-07-13] MEDS: Insulin LISPRO 300 UNITS/3 ML VIAL SUBQ SCH ×4 (00:15→17:22)
[2021-07-13] MEDS: Haloperidol Lactate 5 MG/ML VIAL IVP PRN (04:33)
[2021-07-13 06:11] LABS: Basophils % 0.1 %; Hematocrit 25.2 % (37.5-50.1)
[2021-07-13 06:13] LABS: Eosinophils % 0.1 %; Immature Granulocytes % 1.6 % (0-4); Immature Platelets 17.6 % (1.1-6.1); Lymphocytes # 1.6 K/mcL (0.6-4.6); Lymphocytes % 10.7 %; Mean Corpuscular HGB Conc 27.8 g/dL (31.6-35.5); Mean Corpuscular Hemoglobin 22.7 pg (28.0-33.3); Mean Corpuscular Volume 81.8 fL (83.0-100.0); Monocytes # 1.3 K/mcL (0.0-1.3); Monocytes % 8.4 %; Neutrophils # 11.9 K/mcL (1.6-8.9); Nucleated Red Blood Cells 0.2 /100 WBC (0); Platelet Count 138 K/mcL (140-400); Red Blood Count 3.08 M/mcL (4.19-5.50); Red Cell Distribution Width 19.8 % (11.5-14.5); Segmented Neutrophils % 79.1 %
[2021-07-13] MEDS: Aspirin Enteric Coated 81 MG Tablet PO SCH (06:19)
[2021-07-13] MEDS: Finasteride 5 MG TABLET PO SCH (06:19)
[2021-07-13 06:41] LABS: Anisocytosis 1+ (Not Present); Hypochromasia Present (Not Present); Stomatocytes 1+ (Not Present)
[2021-07-13 06:42] LABS: BUN/Creatinine Ratio 59 (6-26); Blood Urea Nitrogen 69 mg/dL (8-23); Carbon Dioxide 42 mEq/L (23-29); Chloride 95 mEq/L (98-107); Glucose 257 mg/dL (70-105); Magnesium 1.8 mg/dL (1.6-2.6); Osmolality,Calculated 315 (280-300); Platelet Estimate Normal (Normal); Potassium 5.1 mEq/L (3.5-5.1); Sodium 138 mEq/L (136-145); eGFR For African Americans > 60 (> 60); eGFR For Non-African Americans > 60 (> 60)
[2021-07-13] MEDS: Budesonide/Formoterol 160/4.5 1 PUFF INH IH SCH ×2 (07:47→20:14)
[2021-07-13] MEDS: Metoprolol XL (24 HR) Succ 25 MG TAB.ER.24H PO SCH ×2 (08:20→20:23)
[2021-07-13] MEDS: Apixaban 5 MG TABLET PO SCH ×2 (08:20→20:21)
[2021-07-13] MEDS: Lactobacillus 1 EACH CAP.SPRINK PO SCH ×2 (08:20→20:45)
[2021-07-13] MEDS: predniSONE 20 MG TABLET PO SCH (08:20)
[2021-07-13] MEDS: metroNIDAZOLE 500 MG TABLET PO SCH ×3 (08:20→20:21)
[2021-07-13] MEDS: Multivit/Ca/Min/Fe/FA 1 TAB TABLET PO SCH (08:20)
[2021-07-13] MEDS: Gabapentin 400 MG CAPSULE PO SCH ×3 (08:20→20:21)
[2021-07-13] MEDS: Insulin DETEMIR 100 UNIT/ML X5UNITS SUBQ SCH ×2 (08:21→20:45)
[2021-07-13] MEDS: SODIUM ZIRCONIUM CYCLOSILICATE 5 GM POWD.PACK PO SCH (08:21)
[2021-07-13] MEDS: Artificial Tears SOLN 15 ML BOTTLE BOTH EYES SCH ×2 (08:21→20:30)
[2021-07-13] MEDS: Nicotine 21 MG PATCH.TD24 TD SCH (08:22)
[2021-07-13] MEDS ORDERED: *HR* Etomidate 20 MG/10 ML AMPUL IVP ONE (13:03)
[2021-07-13] MEDS ORDERED: *HR* Midazolam HCl 5 MG/5 ML VIAL IVP ONE (13:03)
[2021-07-13] MEDS ORDERED: Levalbuterol Neb 0.63 MG/3 ML IH PRN (14:19)
[2021-07-13] MEDS: Vancomycin 1,250 MG/262.5 ML IV.SOLN IVPB SCH (16:38)
[2021-07-13] MEDS: *HR* Metoprolol 5 MG/5 ML VIAL IVP PRN (17:20)
[2021-07-13] MEDS: QUEtiapine Fumarate 100 MG TABLET PO SCH (20:22)
[2021-07-13] MEDS: traZODone 50 MG TABLET PO SCH (20:23)
[2021-07-13] MEDS: Melatonin 3 MG TABLET PO PRN (20:23)
[2021-07-14 05:56] LABS: Basophils % 0.1 %; Eosinophils % 0.2 %; Platelet Count 130 K/mcL (140-400); Red Cell Distribution Width 19.4 % (11.5-14.5)
[2021-07-14 05:58] LABS: Hematocrit 25.2 % (37.5-50.1); Hemoglobin 6.8 g/dL (12.9-16.9); Immature Granulocytes % 1.3 % (0-4); Lymphocytes # 0.9 K/mcL (0.6-4.6); Lymphocytes % 8.4 %; Mean Corpuscular Hemoglobin 22.1 pg (28.0-33.3); Mean Corpuscular Volume 81.8 fL (83.0-100.0); Monocytes # 0.6 K/mcL (0.0-1.3); Monocytes % 5.6 %; Neutrophils # 9.5 K/mcL (1.6-8.9); Nucleated Red Blood Cells 0.3 /100 WBC (0); Red Blood Count 3.08 M/mcL (4.19-5.50); Segmented Neutrophils % 84.4 %; White Blood Count 11.2 K/mcL (4.3-11.1)
[2021-07-14 06:22] LABS: BUN/Creatinine Ratio 63 (6-26); Blood Urea Nitrogen 84 mg/dL (8-23); Calcium 8.8 mg/dL (8.6-10.3); Carbon Dioxide 42 mEq/L (23-29); Chloride 97 mEq/L (98-107); Glucose 277 mg/dL (70-105); Magnesium 1.8 mg/dL (1.6-2.6); Osmolality,Calculated 321 (280-300); Phosphorous 2.9 mg/dL (2.7-4.5); Potassium 5.7 mEq/L (3.5-5.1); Sodium 138 mEq/L (136-145); eGFR For African Americans > 60 (> 60); eGFR For Non-African Americans 53 (> 60)
[2021-07-14 06:29] LABS: Anisocytosis 1+ (Not Present); Hypochromasia Present (Not Present); Stomatocytes 1+ (Not Present)
[2021-07-14 06:30] LABS: Platelet Estimate Slight Decrease (Normal)
[2021-07-14] MEDS ORDERED: *HR* Dextrose 50 % in Water (Vial) 50 ML VIAL IVP ONE (06:38)
[2021-07-14] MEDS ORDERED: Insulin Human Regular 10 UNIT in 0.9 % Sodium Chloride 10 ML IV ONE (06:38)
[2021-07-14] MEDS: Budesonide/Formoterol 160/4.5 1 PUFF INH IH SCH ×2 (08:17→20:07)
[2021-07-14 08:34] LABS: ABG Base Excess 12 mEq/L (-2 to 3); ABG HCO3 41 mEq/L (21-27); ABG Oxygen Saturation 96 % (95-98); ABG PCO2 84 mmHg (35-45); ABG PH 7.29 pH Units (7.32-7.45); ABG PO2 96 mmHg (85-104); ABG TCO2 43 mEq/L (20-26)
[2021-07-14] MEDS: Insulin LISPRO 300 UNITS/3 ML VIAL SUBQ SCH ×3 (09:03→16:53)
[2021-07-14] MEDS ORDERED: *HR* LORazepam 2 MG/ML VIAL IVP PRN (09:25)
[2021-07-14] MEDS: Aspirin Enteric Coated 81 MG Tablet PO SCH (10:38)
[2021-07-14] MEDS: Lactobacillus 1 EACH CAP.SPRINK PO SCH ×2 (10:38→19:27)
[2021-07-14] MEDS: Gabapentin 400 MG CAPSULE PO SCH ×3 (10:38→19:28)
[2021-07-14] MEDS: Apixaban 5 MG TABLET PO SCH ×2 (10:38→19:27)
[2021-07-14] MEDS: Finasteride 5 MG TABLET PO SCH (10:38)
[2021-07-14] MEDS: metroNIDAZOLE 500 MG TABLET PO SCH ×3 (10:38→19:27)
[2021-07-14] MEDS: Insulin DETEMIR 100 UNIT/ML X5UNITS SUBQ SCH ×2 (10:40→19:29)
[2021-07-14] MEDS ORDERED: 0.9 % Sodium Chloride 250 ML IV ONE (10:41)
[2021-07-14] MEDS ORDERED: 0.9 % Sodium Chloride 500 ML ONE ×2 (10:43→15:28)
[2021-07-14] MEDS: Ipratropium/Albuterol Neb 3 ML IH SCH ×4 (10:50→23:21)
[2021-07-14] MEDS: Metoprolol XL (24 HR) Succ 25 MG TAB.ER.24H PO SCH ×2 (11:02→19:28)
[2021-07-14] MEDS: Artificial Tears SOLN 15 ML BOTTLE BOTH EYES SCH ×2 (11:02→19:28)
[2021-07-14] MEDS: Nicotine 21 MG PATCH.TD24 TD SCH (11:02)
[2021-07-14] MEDS: predniSONE 20 MG TABLET PO SCH (11:02)
[2021-07-14] MEDS: Multivit/Ca/Min/Fe/FA 1 TAB TABLET PO SCH (11:02)
[2021-07-14] MEDS: SODIUM ZIRCONIUM CYCLOSILICATE 5 GM POWD.PACK PO SCH (11:03)
[2021-07-14] MEDS: Pantoprazole 40 MG VIAL IVP SCH ×2 (11:05→17:37)
[2021-07-14] MEDS ORDERED: 0.9 % Sodium Chloride 250 ML ONE (15:24)
[2021-07-14] MEDS ORDERED: 0.9 % Sodium Chloride 250 ML IVC ONE (15:29)
[2021-07-14] MEDS ORDERED: 0.9 % Sodium Chloride 500 ML IVC ONE ×2 (15:29→21:50)
[2021-07-14] MEDS: Dexmedetomidine HCl 400 MCG/100 ML MLS IVC SCH (16:12)
[2021-07-14] MEDS: Vancomycin 1,250 MG/262.5 ML IV.SOLN IVPB SCH (16:25)
[2021-07-14] MEDS: Piperacillin/Tazobactam 3.375 GM in 0.9 % Sodium Chloride Mini Bag 100 ML IVPB SCH (17:37)
[2021-07-14] MEDS ORDERED: Furosemide 20 MG/2 ML VIAL IVP STA (17:57)
[2021-07-14 18:23] LABS: Basophils % 0.1 %; Eosinophils # 0.2 K/mcL (0.0-0.6); Eosinophils % 1.3 %; Hematocrit 29.3 % (37.5-50.1); Hemoglobin 7.9 g/dL (12.9-16.9); Lymphocytes # 1.8 K/mcL (0.6-4.6); Lymphocytes % 11.9 %; Mean Corpuscular Hemoglobin 22.6 pg (28.0-33.3); Monocytes # 0.8 K/mcL (0.0-1.3); Monocytes % 5.7 %; Neutrophils # 11.8 K/mcL (1.6-8.9); Platelet Count 147 K/mcL (140-400); Red Blood Count 3.49 M/mcL (4.19-5.50); Red Cell Distribution Width 19.1 % (11.5-14.5); White Blood Count 14.8 K/mcL (4.3-11.1)
[2021-07-14] MEDS ORDERED: Perflutren Lipid Microsphere 1.3 ML in 0.9 % Sodium Chloride 8.7 ML IVP PRN (18:26)
[2021-07-14] MEDS: QUEtiapine Fumarate 100 MG TABLET PO SCH (19:28)
[2021-07-14] MEDS: traZODone 50 MG TABLET PO SCH (19:28)
[2021-07-14] MEDS ORDERED: Albumin 25% 25gram/100mL 25 GM/100 ML IV.SOLN IVPB ONE (20:02)
[2021-07-14 20:34] LABS: Basophils % 0.1 %; Hematocrit 26.6 % (37.5-50.1)
[2021-07-14 20:36] LABS: Eosinophils # 0.2 K/mcL (0.0-0.6); Eosinophils % 1.5 %; Hemoglobin 7.4 g/dL (12.9-16.9); Immature Platelets 17.2 % (1.1-6.1); Lymphocytes # 1.7 K/mcL (0.6-4.6); Lymphocytes % 11.9 %; Mean Corpuscular HGB Conc 27.8 g/dL (31.6-35.5); Mean Corpuscular Hemoglobin 22.8 pg (28.0-33.3); Mean Corpuscular Volume 82.1 fL (83.0-100.0); Monocytes # 0.8 K/mcL (0.0-1.3); Monocytes % 5.4 %; Neutrophils # 11.1 K/mcL (1.6-8.9); Nucleated Red Blood Cells 0.1 /100 WBC (0); Platelet Count 131 K/mcL (140-400); Red Blood Count 3.24 M/mcL (4.19-5.50); Segmented Neutrophils % 80.1 %; White Blood Count 13.9 K/mcL (4.3-11.1)
[2021-07-14 20:39] LABS: VBG Ionized Calcium 1.33 mmol/L (1.15-1.35)
[2021-07-14 20:53] LABS: Anisocytosis 2+ (Not Present); Hypochromasia Present (Not Present); Platelet Estimate Normal (Normal)
[2021-07-14 20:55] LABS: BUN/Creatinine Ratio 72 (6-26); Blood Urea Nitrogen 86 mg/dL (8-23); Calcium 8.8 mg/dL (8.6-10.3); Carbon Dioxide 40 mEq/L (23-29); Chloride 100 mEq/L (98-107); Glucose 84 mg/dL (70-105); Magnesium 1.7 mg/dL (1.6-2.6); Osmolality,Calculated 315 (280-300); Potassium 5.1 mEq/L (3.5-5.1); Sodium 140 mEq/L (136-145); eGFR For African Americans > 60 (> 60); eGFR For Non-African Americans > 60 (> 60)
[2021-07-14] MEDS ORDERED: Norepinephrine 4 MG/254 ML IV.SOLN IVC SCH (22:00)
[2021-07-14 23:23] LABS: ABG Base Excess 7 mEq/L (-2 to 3); ABG HCO3 34 mEq/L (21-27); ABG Oxygen Saturation 89 % (95-98); ABG PCO2 64 mmHg (35-45); ABG PH 7.33 pH Units (7.32-7.45); ABG PO2 61 mmHg (85-104); ABG TCO2 36 mEq/L (20-26)
[2021-07-15] MEDS: Piperacillin/Tazobactam 3.375 GM in 0.9 % Sodium Chloride Mini Bag 100 ML IVPB SCH ×3 (00:02→16:40)
[2021-07-15] MEDS: *HR* Dextrose 50 % in Water (Syg) 50 ML SYRINGE IVP PRN ×2 (00:02→05:50)
[2021-07-15] MEDS: Ipratropium/Albuterol Neb 3 ML IH SCH ×6 (03:49→23:31)
[2021-07-15 04:02] LABS: Basophils % 0.1 %; Hemoglobin 7.7 g/dL (12.9-16.9); Monocytes % 5.2 %
[2021-07-15 04:04] LABS: Eosinophils # 0.3 K/mcL (0.0-0.6); Eosinophils % 1.5 %; Hematocrit 28.2 % (37.5-50.1); Immature Granulocytes % 0.8 % (0-4); Immature Platelets 17.3 % (1.1-6.1); Lymphocytes # 1.2 K/mcL (0.6-4.6); Lymphocytes % 5.6 %; Mean Corpuscular HGB Conc 27.3 g/dL (31.6-35.5); Mean Corpuscular Hemoglobin 22.8 pg (28.0-33.3); Mean Corpuscular Volume 83.4 fL (83.0-100.0); Monocytes # 1.2 K/mcL (0.0-1.3); Neutrophils # 19.2 K/mcL (1.6-8.9); Platelet Count 134 K/mcL (140-400); Red Blood Count 3.38 M/mcL (4.19-5.50); Red Cell Distribution Width 19.1 % (11.5-14.5); Segmented Neutrophils % 86.8 %; White Blood Count 22.1 K/mcL (4.3-11.1)
[2021-07-15 04:22] LABS: Anisocytosis 2+ (Not Present); Hypochromasia Present (Not Present); Platelet Estimate Normal (Normal); Poikilocytosis 1+ (Not Present); Target Cells 1+ (Not Present)
[2021-07-15 04:25] LABS: BUN/Creatinine Ratio 74 (6-26); Blood Urea Nitrogen 83 mg/dL (8-23); Calcium 8.9 mg/dL (8.6-10.3); Carbon Dioxide 41 mEq/L (23-29); Chloride 102 mEq/L (98-107); Glucose 70 mg/dL (70-105); Magnesium 1.5 mg/dL (1.6-2.6); Osmolality,Calculated 318 (280-300); Phosphorous 2.4 mg/dL (2.7-4.5); Potassium 5.3 mEq/L (3.5-5.1); Sodium 142 mEq/L (136-145); eGFR For African Americans > 60 (> 60); eGFR For Non-African Americans > 60 (> 60)
[2021-07-15] MEDS: Pantoprazole 40 MG VIAL IVP SCH ×2 (05:48→18:56)
[2021-07-15] MEDS: Dexmedetomidine HCl 400 MCG/100 ML MLS IVC SCH ×5 (06:00→21:35)
[2021-07-15] MEDS ORDERED: D5% in 0.9% NACL 1,000 ML IVC SCH (06:45)
[2021-07-15 06:52] LABS: ABG Base Excess 10 mEq/L (-2 to 3); ABG HCO3 38 mEq/L (21-27); ABG Oxygen Saturation 92 % (95-98); ABG PCO2 69 mmHg (35-45); ABG PH 7.34 pH Units (7.32-7.45); ABG PO2 72 mmHg (85-104); ABG TCO2 40 mEq/L (20-26)
[2021-07-15] MEDS: Aspirin Enteric Coated 81 MG Tablet PO SCH (07:58)
[2021-07-15] MEDS: Finasteride 5 MG TABLET PO SCH (07:59)
[2021-07-15] MEDS: Lactobacillus 1 EACH CAP.SPRINK PO SCH ×3 (07:59→21:29)
[2021-07-15] MEDS: Apixaban 5 MG TABLET PO SCH ×3 (07:59→21:29)
[2021-07-15] MEDS: Gabapentin 400 MG CAPSULE PO SCH ×4 (08:00→21:30)
[2021-07-15] MEDS: Multivit/Ca/Min/Fe/FA 1 TAB TABLET PO SCH ×2 (08:00→13:34)
[2021-07-15] MEDS: Metoprolol XL (24 HR) Succ 25 MG TAB.ER.24H PO SCH ×3 (08:00→21:33)
[2021-07-15] MEDS: metroNIDAZOLE 500 MG TABLET PO SCH ×4 (08:00→21:30)
[2021-07-15] MEDS: predniSONE 20 MG TABLET PO SCH ×2 (08:00→13:34)
[2021-07-15] MEDS: Budesonide/Formoterol 160/4.5 1 PUFF INH IH SCH ×3 (08:05→19:59)
[2021-07-15] MEDS ORDERED: *HR* Dextrose 50 % in Water (Syg) 50 ML SYRINGE IVP PRN (08:48)
[2021-07-15] MEDS ORDERED: *HR* LORazepam 2 MG/ML VIAL IVP PRN (08:48)
[2021-07-15] MEDS ORDERED: Dextrose 4 GM Chewable Tablets PO PRN ×2 (08:48)
[2021-07-15] MEDS ORDERED: D5% in Water 1,000 ML IVC PRN (08:48)
[2021-07-15] MEDS ORDERED: *HR* Promethazine 25 MG/ML VIAL IM PRN (08:48)
[2021-07-15] MEDS ORDERED: Haloperidol Lactate 5 MG/ML VIAL IVP PRN (08:48)
[2021-07-15] MEDS ORDERED: Acetaminophen 325 MG TABLET PO PRN (08:48)
[2021-07-15] MEDS ORDERED: Naloxone 0.4 MG/ML INJ IVP PRN (08:48)
[2021-07-15] MEDS ORDERED: Melatonin 3 MG TABLET PO PRN (08:48)
[2021-07-15] MEDS ORDERED: Saline Nasal Spray 44 ML BOTTLE NS PRN (08:48)
[2021-07-15] MEDS ORDERED: Saliva Stimulant 44.3ml BOTTLE PO PRN (08:48)
[2021-07-15] MEDS ORDERED: Perflutren Lipid Microsphere 1.3 ML in 0.9 % Sodium Chloride 8.7 ML IVP PRN (08:48)
[2021-07-15] MEDS ORDERED: Baclofen 10 MG TABLET PO PRN (08:48)
[2021-07-15] MEDS ORDERED: Artificial Tears SOLN 15 ML BOTTLE BOTH EYES PRN (08:50)
[2021-07-15] MEDS ORDERED: Insulin DETEMIR 100 UNIT/ML X5UNITS SUBQ SCH (09:00)
[2021-07-15] MEDS: FentaNYL (PF) 1,000 MCG/100 ML IV.SOLN IVC SCH ×2 (09:19→16:37)
[2021-07-15] MEDS: Artificial Tears SOLN 15 ML BOTTLE BOTH EYES SCH ×5 (09:23→21:21)
[2021-07-15 10:41] LABS: Appearance of Body Fluid Cloudy (Clear)
[2021-07-15 10:42] LABS: Volume of Body Fluid 32 mL
[2021-07-15 11:48] LABS: ABG Base Excess 10 mEq/L (-2 to 3); ABG HCO3 38 mEq/L (21-27); ABG Oxygen Saturation 98 % (95-98); ABG PCO2 74 mmHg (35-45); ABG PH 7.32 pH Units (7.32-7.45); ABG PO2 124 mmHg (85-104); ABG TCO2 40 mEq/L (20-26); Blood Gas Modality ASSIST CONTROL; Blood Gas VT 450 cc
[2021-07-15] MEDS ORDERED: Potassium Chloride 40 MEQ/200 ML BAG IVPB PRN (12:57)
[2021-07-15] MEDS ORDERED: Calcium Gluconate 1gm/50mL 1 GM/50 ML BAG IVPB PRN (12:57)
[2021-07-15] MEDS: Insulin LISPRO 300 UNITS/3 ML VIAL SUBQ SCH ×3 (13:07→17:00)
[2021-07-15] MEDS: Nicotine 21 MG PATCH.TD24 TD SCH (13:35)
[2021-07-15] MEDS: Chlorhexidine Rinse 15 ML MOUTHWASH MM SCH ×2 (13:36→21:29)
[2021-07-15 14:16] LABS: BUN/Creatinine Ratio 70 (6-26); Blood Urea Nitrogen 72 mg/dL (8-23); Calcium 8.7 mg/dL (8.6-10.3); Carbon Dioxide 40 mEq/L (23-29); Chloride 101 mEq/L (98-107); Glucose 132 mg/dL (70-105); Magnesium 1.8 mg/dL (1.6-2.6); Osmolality,Calculated 319 (280-300); Potassium 5.3 mEq/L (3.5-5.1); Sodium 143 mEq/L (136-145); eGFR For African Americans > 60 (> 60); eGFR For Non-African Americans > 60 (> 60)
[2021-07-15 14:29] LABS: White Blood Count 26.6 K/mcL (4.3-11.1)
[2021-07-15 14:31] LABS: Hematocrit 27.1 % (37.5-50.1); Hemoglobin 7.5 g/dL (12.9-16.9); Immature Platelets 17.1 % (1.1-6.1); Mean Corpuscular HGB Conc 27.7 g/dL (31.6-35.5); Mean Corpuscular Volume 83.1 fL (83.0-100.0); Platelet Count 120 K/mcL (140-400); Red Blood Count 3.26 M/mcL (4.19-5.50); Red Cell Distribution Width 19.5 % (11.5-14.5)
[2021-07-15 14:57] LABS: Anisocytosis 2+ (Not Present); Monocytes # 1.6 K/mcL (0.0-1.3); Neutrophils # 24.5 K/mcL (1.6-8.9); Polychromasia 1+ (Not Present); Stomatocytes 1+ (Not Present)
[2021-07-15 14:58] LABS: Platelet Estimate Decreased (Normal)
[2021-07-15] MEDS: Norepinephrine 4 MG/254 ML IV.SOLN IVC SCH (15:58)
[2021-07-15] MEDS ORDERED: Furosemide 20 MG/2 ML VIAL IVP SCH (16:00)
[2021-07-15] MEDS: Vancomycin 1,250 MG/262.5 ML IV.SOLN IVPB SCH (16:48)
[2021-07-15] MEDS: traZODone 50 MG TABLET PO SCH (21:31)
[2021-07-15] MEDS: QUEtiapine Fumarate 100 MG TABLET PO SCH (21:31)
[2021-07-16] MEDS: Piperacillin/Tazobactam 3.375 GM in 0.9 % Sodium Chloride Mini Bag 100 ML IVPB SCH ×3 (00:55→15:46)
[2021-07-16] MEDS: Artificial Tears SOLN 15 ML BOTTLE BOTH EYES SCH ×7 (03:32→20:51)
[2021-07-16] MEDS: Ipratropium/Albuterol Neb 3 ML IH SCH ×5 (03:44→20:36)
[2021-07-16 04:35] LABS: Basophils % 0.1 %; Hemoglobin 7.6 g/dL (12.9-16.9); Lymphocytes % 1.5 %
[2021-07-16 04:36] LABS: Hematocrit 27.1 % (37.5-50.1); Immature Granulocytes % 0.9 % (0-4); Immature Platelets 16.4 % (1.1-6.1); Lymphocytes # 0.4 K/mcL (0.6-4.6); Mean Corpuscular Volume 81.9 fL (83.0-100.0); Monocytes % 1.4 %; Nucleated Red Blood Cells 0.1 /100 WBC (0); Platelet Count 124 K/mcL (140-400); Red Blood Count 3.31 M/mcL (4.19-5.50); Red Cell Distribution Width 19.9 % (11.5-14.5); Segmented Neutrophils % 96.1 %; White Blood Count 24.8 K/mcL (4.3-11.1)
[2021-07-16 04:41] LABS: Monocytes # 0.4 K/mcL (0.0-1.3); Neutrophils # 23.8 K/mcL (1.6-8.9)
[2021-07-16 04:55] LABS: BUN/Creatinine Ratio 66 (6-26); BUN/Creatinine Ratio 69 (6-26); Blood Urea Nitrogen 70 mg/dL (8-23); Calcium 8.7 mg/dL (8.6-10.3); Calcium 8.8 mg/dL (8.6-10.3); Carbon Dioxide 34 mEq/L (23-29); Carbon Dioxide 35 mEq/L (23-29); Chloride 100 mEq/L (98-107); Chloride 99 mEq/L (98-107); Glucose 293 mg/dL (70-105); Glucose 294 mg/dL (70-105); Osmolality,Calculated 317 (280-300); Osmolality,Calculated 323 (280-300); Potassium 6.2 mEq/L (3.5-5.1); Potassium 6.3 mEq/L (3.5-5.1); Sodium 138 mEq/L (136-145); Sodium 141 mEq/L (136-145); eGFR For African Americans > 60 (> 60); eGFR For Non-African Americans > 60 (> 60)
[2021-07-16 04:59] LABS: Anisocytosis 2+ (Not Present); Hypochromasia Present (Not Present)
[2021-07-16 05:00] LABS: Platelet Estimate Slight Decrease (Normal)
[2021-07-16 05:07] LABS: ABG Base Excess 9 mEq/L (-2 to 3); ABG HCO3 36 mEq/L (21-27); ABG Oxygen Saturation 92 % (95-98); ABG PCO2 65 mmHg (35-45); ABG PH 7.35 pH Units (7.32-7.45); ABG PO2 70 mmHg (85-104); ABG TCO2 38 mEq/L (20-26); Blood Gas Modality ASSIST CONTROL; Blood Gas VT 450 cc
[2021-07-16] MEDS: Pantoprazole 40 MG VIAL IVP SCH ×2 (05:19→17:36)
[2021-07-16] MEDS ORDERED: Insulin Human Regular 10 UNIT in 0.9 % Sodium Chloride 10 ML IV ONE (06:03)
[2021-07-16] MEDS ORDERED: *HR* Dextrose 50 % in Water (Syg) 50 ML SYRINGE IVP ONE (06:05)
[2021-07-16] MEDS ORDERED: Calcium Gluconate 1gm/50mL 1 GM/50 ML BAG IVPB PRN (06:07)
[2021-07-16] MEDS: Norepinephrine 4 MG/254 ML IV.SOLN IVC SCH ×2 (06:09→08:42)
[2021-07-16] MEDS ORDERED: Aspirin Enteric Coated 81 MG Tablet PO SCH (07:00)
[2021-07-16] MEDS ORDERED: Finasteride 5 MG TABLET PO SCH (07:00)
[2021-07-16] MEDS: Budesonide/Formoterol 160/4.5 1 PUFF INH IH SCH ×2 (07:26→20:36)
[2021-07-16] MEDS: Dexmedetomidine HCl 400 MCG/100 ML MLS IVC SCH ×5 (08:01→23:55)
[2021-07-16] MEDS: Multivit/Ca/Min/Fe/FA 1 TAB TABLET PO SCH (08:20)
[2021-07-16] MEDS: metroNIDAZOLE 500 MG TABLET PO SCH (08:20)
[2021-07-16] MEDS: Gabapentin 400 MG CAPSULE PO SCH ×3 (08:20→20:57)
[2021-07-16] MEDS: Apixaban 5 MG TABLET PO SCH (08:21)
[2021-07-16] MEDS: Lactobacillus 1 EACH CAP.SPRINK PO SCH ×2 (08:21→20:57)
[2021-07-16] MEDS: predniSONE 20 MG TABLET PO SCH (08:24)
[2021-07-16] MEDS: Nicotine 21 MG PATCH.TD24 TD SCH (08:24)
[2021-07-16] MEDS: Chlorhexidine Rinse 15 ML MOUTHWASH MM SCH ×2 (08:24→20:56)
[2021-07-16] MEDS: Metoprolol XL (24 HR) Succ 25 MG TAB.ER.24H PO SCH (08:42)
[2021-07-16] MEDS: Insulin LISPRO 300 UNITS/3 ML VIAL SUBQ SCH ×4 (08:51→21:02)
[2021-07-16 10:58] LABS: BUN/Creatinine Ratio 68 (6-26); Blood Urea Nitrogen 68 mg/dL (8-23); Calcium 8.7 mg/dL (8.6-10.3); Carbon Dioxide 36 mEq/L (23-29); Chloride 102 mEq/L (98-107); Glucose 285 mg/dL (70-105); Osmolality,Calculated 324 (280-300); Potassium 5.6 mEq/L (3.5-5.1); Sodium 142 mEq/L (136-145); eGFR For African Americans > 60 (> 60); eGFR For Non-African Americans > 60 (> 60)
[2021-07-16] MEDS: FentaNYL (PF) 1,000 MCG/100 ML IV.SOLN IVC SCH ×3 (10:58→20:10)
[2021-07-16 10:59] LABS: Red Cell Distribution Width 19.9 % (11.5-14.5)
[2021-07-16 11:02] LABS: Immature Platelets 17.7 % (1.1-6.1); Mean Corpuscular Hemoglobin 22.9 pg (28.0-33.3); Mean Corpuscular Volume 81.7 fL (83.0-100.0); Platelet Count 122 K/mcL (140-400); Red Blood Count 3.06 M/mcL (4.19-5.50); White Blood Count 22.5 K/mcL (4.3-11.1)
[2021-07-16] MEDS ORDERED: SODIUM ZIRCONIUM CYCLOSILICATE 5 GM POWD.PACK PO ONE (12:30)
[2021-07-16 14:16] LABS: Anisocytosis 1+ (Not Present); Hypochromasia Present (Not Present); Neutrophils # 22.5 K/mcL (1.6-8.9); Platelet Estimate Slight Decrease (Normal)
[2021-07-16 14:17] LABS: Poikilocytosis 1+ (Not Present)
[2021-07-16] MEDS: Vancomycin 1,250 MG/262.5 ML IV.SOLN IVPB SCH (16:13)
[2021-07-16 19:08] LABS: Source of Body Fluid LEFT UPPER LOBE LUNG
[2021-07-16] MEDS: QUEtiapine Fumarate 100 MG TABLET PO SCH (20:58)
[2021-07-16] MEDS: traZODone 50 MG TABLET PO SCH (20:58)
[2021-07-17 00:03] LABS: Appearance of Body Fluid Cloudy (Clear); Volume of Body Fluid 25 mL
[2021-07-17] MEDS: Ipratropium/Albuterol Neb 3 ML IH SCH ×6 (00:10→20:11)
[2021-07-17] MEDS: Artificial Tears SOLN 15 ML BOTTLE BOTH EYES SCH ×7 (00:25→23:27)
[2021-07-17] MEDS: Norepinephrine 4 MG/254 ML IV.SOLN IVC SCH ×3 (00:28→21:16)
[2021-07-17] MEDS: Insulin LISPRO 300 UNITS/3 ML VIAL SUBQ SCH ×7 (00:28→23:28)
[2021-07-17] MEDS: Piperacillin/Tazobactam 3.375 GM in 0.9 % Sodium Chloride Mini Bag 100 ML IVPB SCH ×4 (00:30→23:31)
[2021-07-17 00:45] LABS: BUN/Creatinine Ratio 71 (6-26); Blood Urea Nitrogen 64 mg/dL (8-23); Calcium 8.9 mg/dL (8.6-10.3); Carbon Dioxide 38 mEq/L (23-29); Chloride 102 mEq/L (98-107); Glucose 225 mg/dL (70-105); Osmolality,Calculated 315 (280-300); Phosphorous 3.9 mg/dL (2.7-4.5); Potassium 5.9 mEq/L (3.5-5.1); Sodium 140 mEq/L (136-145); eGFR For African Americans > 60 (> 60); eGFR For Non-African Americans > 60 (> 60)
[2021-07-17] MEDS: FentaNYL (PF) 1,000 MCG/100 ML IV.SOLN IVC SCH ×5 (02:45→20:40)
[2021-07-17 04:08] LABS: VBG Ionized Calcium 1.23 mmol/L (1.15-1.35)
[2021-07-17 04:16] LABS: Eosinophils % 0.2 %; Hemoglobin 7.1 g/dL (12.9-16.9); Immature Granulocytes % 0.6 % (0-4); Monocytes % 3.1 %
[2021-07-17 04:19] LABS: Hematocrit 25.1 % (37.5-50.1); Immature Platelets 17.8 % (1.1-6.1); Lymphocytes # 0.7 K/mcL (0.6-4.6); Lymphocytes % 2.9 %; Mean Corpuscular HGB Conc 28.3 g/dL (31.6-35.5); Mean Corpuscular Hemoglobin 22.7 pg (28.0-33.3); Mean Corpuscular Volume 80.2 fL (83.0-100.0); Monocytes # 0.7 K/mcL (0.0-1.3); Neutrophils # 21.6 K/mcL (1.6-8.9); Platelet Count 141 K/mcL (140-400); Red Blood Count 3.13 M/mcL (4.19-5.50); Red Cell Distribution Width 20.4 % (11.5-14.5); Segmented Neutrophils % 93.2 %; White Blood Count 23.2 K/mcL (4.3-11.1)
[2021-07-17 04:20] LABS: Eosinophils # 0.1 K/mcL (0.0-0.6)
[2021-07-17 04:21] LABS: Anisocytosis 1+ (Not Present); Hypochromasia Present (Not Present); Platelet Estimate Normal (Normal)
[2021-07-17 04:25] LABS: Phosphorous 3.5 mg/dL (2.7-4.5)
[2021-07-17] MEDS: Dexmedetomidine HCl 400 MCG/100 ML MLS IVC SCH ×7 (04:50→23:35)
[2021-07-17] MEDS: Pantoprazole 40 MG VIAL IVP SCH ×2 (05:53→16:45)
[2021-07-17] MEDS: Chlorhexidine Rinse 15 ML MOUTHWASH MM SCH ×2 (07:23→21:00)
[2021-07-17] MEDS: Multivit/Ca/Min/Fe/FA 1 TAB TABLET PO SCH (07:23)
[2021-07-17] MEDS: predniSONE 20 MG TABLET PO SCH (07:24)
[2021-07-17] MEDS: Lactobacillus 1 EACH CAP.SPRINK PO SCH ×2 (07:24→21:00)
[2021-07-17] MEDS: Gabapentin 400 MG CAPSULE PO SCH (07:25)
[2021-07-17] MEDS: Budesonide/Formoterol 160/4.5 1 PUFF INH IH SCH (07:25)
[2021-07-17] MEDS: Nicotine 21 MG PATCH.TD24 TD SCH (07:25)
[2021-07-17] MEDS: Aspirin 81 MG TAB.CHEW GTUBE SCH (07:44)
[2021-07-17] MEDS: *HR* Metoprolol 5 MG/5 ML VIAL IVP PRN (09:15)
[2021-07-17 09:27] LABS: ABG Base Excess 10 mEq/L (-2 to 3); ABG HCO3 37 mEq/L (21-27); ABG Oxygen Saturation 91 % (95-98); ABG PCO2 67 mmHg (35-45); ABG PH 7.35 pH Units (7.32-7.45); ABG PO2 66 mmHg (85-104); ABG TCO2 39 mEq/L (20-26); Blood Gas VT 450 cc
[2021-07-17] MEDS: SODIUM ZIRCONIUM CYCLOSILICATE 5 GM POWD.PACK PO SCH ×3 (10:55→21:05)
[2021-07-17 11:33] LABS: INR 1.7; Prothrombin Time 18.4 Seconds (9.4-12.1)
[2021-07-17] MEDS ORDERED: 0.9 % Sodium Chloride 250 ML IVC SCH (11:45)
[2021-07-17] MEDS: Vancomycin 1,250 MG/262.5 ML IV.SOLN IVPB SCH (15:24)
[2021-07-17 17:32] LABS: BUN/Creatinine Ratio 53 (6-26); Blood Urea Nitrogen 57 mg/dL (8-23); Carbon Dioxide 36 mEq/L (23-29); Chloride 100 mEq/L (98-107); Glucose 178 mg/dL (70-105); Osmolality,Calculated 314 (280-300); Potassium 6.3 mEq/L (3.5-5.1); Sodium 142 mEq/L (136-145); eGFR For African Americans > 60 (> 60); eGFR For Non-African Americans > 60 (> 60)
[2021-07-17] MEDS: traZODone 50 MG TABLET PO SCH (21:02)
[2021-07-17] MEDS: QUEtiapine Fumarate 100 MG TABLET PO SCH (21:03)
[2021-07-18] MEDS: Budesonide/Formoterol 160/4.5 1 PUFF INH IH SCH ×3 (00:23→19:57)
[2021-07-18] MEDS: Ipratropium/Albuterol Neb 3 ML IH SCH ×7 (00:24→23:42)
[2021-07-18] MEDS: FentaNYL (PF) 1,000 MCG/100 ML IV.SOLN IVC SCH ×4 (01:02→15:13)
[2021-07-18] MEDS: Artificial Tears SOLN 15 ML BOTTLE BOTH EYES SCH ×5 (04:00→19:29)
[2021-07-18] MEDS: Dexmedetomidine HCl 400 MCG/100 ML MLS IVC SCH ×2 (04:15→08:24)
[2021-07-18 04:28] LABS: ABG Base Excess 14 mEq/L (-2 to 3); ABG HCO3 41 mEq/L (21-27); ABG Oxygen Saturation 94 % (95-98); ABG PCO2 71 mmHg (35-45); ABG PH 7.37 pH Units (7.32-7.45); ABG PO2 76 mmHg (85-104); ABG TCO2 43 mEq/L (20-26); Blood Gas VT 450 cc
[2021-07-18 04:53] LABS: VBG Ionized Calcium 1.27 mmol/L (1.15-1.35)
[2021-07-18] MEDS: Insulin LISPRO 300 UNITS/3 ML VIAL SUBQ SCH ×5 (04:53→19:44)
[2021-07-18 04:56] LABS: Eosinophils % 0.1 %; Hemoglobin 6.7 g/dL (12.9-16.9); Lymphocytes % 5.3 %; Mean Corpuscular Volume 82.4 fL (83.0-100.0); Monocytes % 4.4 %
[2021-07-18 04:58] LABS: Hematocrit 24.3 % (37.5-50.1); Immature Granulocytes % 0.5 % (0-4); Immature Platelets 13.3 % (1.1-6.1); Lymphocytes # 0.8 K/mcL (0.6-4.6); Mean Corpuscular HGB Conc 27.6 g/dL (31.6-35.5); Mean Corpuscular Hemoglobin 22.7 pg (28.0-33.3); Monocytes # 0.7 K/mcL (0.0-1.3); Platelet Count 131 K/mcL (140-400); Red Blood Count 2.95 M/mcL (4.19-5.50); Red Cell Distribution Width 20.2 % (11.5-14.5); Segmented Neutrophils % 89.7 %; White Blood Count 15.9 K/mcL (4.3-11.1)
[2021-07-18 05:03] LABS: INR 1.5; Prothrombin Time 16.5 Seconds (9.4-12.1)
[2021-07-18 05:04] LABS: Neutrophils # 14.3 K/mcL (1.6-8.9)
[2021-07-18 05:16] LABS: BUN/Creatinine Ratio 55 (6-26); Blood Urea Nitrogen 55 mg/dL (8-23); Calcium 8.8 mg/dL (8.6-10.3); Carbon Dioxide 38 mEq/L (23-29); Chloride 102 mEq/L (98-107); Glucose 131 mg/dL (70-105); Osmolality,Calculated 313 (280-300); Phosphorous 4.2 mg/dL (2.7-4.5); Potassium 5.8 mEq/L (3.5-5.1); Sodium 143 mEq/L (136-145); eGFR For African Americans > 60 (> 60); eGFR For Non-African Americans > 60 (> 60)
[2021-07-18 05:41] LABS: Anisocytosis 2+ (Not Present); Hypochromasia Present (Not Present)
[2021-07-18 05:42] LABS: Platelet Estimate Slight Decrease (Normal)
[2021-07-18] MEDS: Pantoprazole 40 MG VIAL IVP SCH ×2 (05:51→16:10)
[2021-07-18] MEDS: Chlorhexidine Rinse 15 ML MOUTHWASH MM SCH ×2 (07:06→19:28)
[2021-07-18] MEDS: Nicotine 21 MG PATCH.TD24 TD SCH (07:06)
[2021-07-18] MEDS: Aspirin 81 MG TAB.CHEW GTUBE SCH (07:06)
[2021-07-18] MEDS: Multivit/Ca/Min/Fe/FA 1 TAB TABLET PO SCH (07:06)
[2021-07-18] MEDS: predniSONE 20 MG TABLET PO SCH (07:06)
[2021-07-18] MEDS: Lactobacillus 1 EACH CAP.SPRINK PO SCH ×2 (07:07→19:29)
[2021-07-18] MEDS: Piperacillin/Tazobactam 3.375 GM in 0.9 % Sodium Chloride Mini Bag 100 ML IVPB SCH ×2 (07:07→15:14)
[2021-07-18] MEDS: Norepinephrine 4 MG/254 ML IV.SOLN IVC SCH ×2 (08:28→13:57)
[2021-07-18] MEDS ORDERED: *HR* Rocuronium Bromide 50 MG/5 ML VIAL IVP ONE (11:00)
[2021-07-18 11:26] LABS: Hematocrit 24.5 % (37.5-50.1); Hemoglobin 6.8 g/dL (12.9-16.9)
[2021-07-18] MEDS ORDERED: Lidocaine -MPF 1% 5 ML AMPUL INFILT ONE (14:03)
[2021-07-18] MEDS: Vancomycin 1,250 MG/262.5 ML IV.SOLN IVPB SCH (15:14)
[2021-07-18] MEDS: MetroNIDAZOLE 500 MG/100 ML 500 MG/100 ML BAG IVPB SCH (16:10)
[2021-07-18] MEDS: QUEtiapine Fumarate 100 MG TABLET PO SCH (19:28)
[2021-07-18] MEDS: traZODone 50 MG TABLET PO SCH (19:29)
[2021-07-19] MEDS: MetroNIDAZOLE 500 MG/100 ML 500 MG/100 ML BAG IVPB SCH ×2 (00:14→08:51)
[2021-07-19] MEDS: Insulin LISPRO 300 UNITS/3 ML VIAL SUBQ SCH ×6 (00:15→21:14)
[2021-07-19 03:35] LABS: VBG Ionized Calcium 1.28 mmol/L (1.15-1.35)
[2021-07-19 03:37] LABS: Basophils % 0.1 %; Hemoglobin 6.3 g/dL (12.9-16.9); Mean Corpuscular Volume 84.1 fL (83.0-100.0)
[2021-07-19 03:39] LABS: Hematocrit 22.7 % (37.5-50.1); Immature Granulocytes % 0.6 % (0-4); Immature Platelets 13.1 % (1.1-6.1); Lymphocytes # 0.6 K/mcL (0.6-4.6); Lymphocytes % 4.2 %; Mean Corpuscular HGB Conc 27.8 g/dL (31.6-35.5); Mean Corpuscular Hemoglobin 23.3 pg (28.0-33.3); Monocytes # 0.4 K/mcL (0.0-1.3); Monocytes % 2.5 %; Neutrophils # 12.8 K/mcL (1.6-8.9); Platelet Count 129 K/mcL (140-400); Red Cell Distribution Width 20.2 % (11.5-14.5); Segmented Neutrophils % 92.6 %; White Blood Count 13.8 K/mcL (4.3-11.1)
[2021-07-19 03:56] LABS: Anisocytosis 2+ (Not Present); Hypochromasia Present (Not Present); Platelet Estimate Slight Decrease (Normal)
[2021-07-19 03:57] LABS: BUN/Creatinine Ratio 59 (6-26); Blood Urea Nitrogen 58 mg/dL (8-23); Calcium 8.7 mg/dL (8.6-10.3); Carbon Dioxide 36 mEq/L (23-29); Chloride 103 mEq/L (98-107); Glucose 150 mg/dL (70-105); Osmolality,Calculated 315 (280-300); Potassium 5.1 mEq/L (3.5-5.1); Sodium 143 mEq/L (136-145); eGFR For African Americans > 60 (> 60); eGFR For Non-African Americans > 60 (> 60)
[2021-07-19] MEDS: Ipratropium/Albuterol Neb 3 ML IH SCH ×6 (04:30→23:50)
[2021-07-19] MEDS: FentaNYL (PF) 1,000 MCG/100 ML IV.SOLN IVC SCH ×4 (04:30→20:05)
[2021-07-19] MEDS: Artificial Tears SOLN 15 ML BOTTLE BOTH EYES SCH ×6 (04:46→21:12)
[2021-07-19 05:06] LABS: ABG Base Excess 7 mEq/L (-2 to 3); ABG HCO3 37 mEq/L (21-27); ABG Oxygen Saturation 98 % (95-98); ABG PCO2 88 mmHg (35-45); ABG PH 7.24 pH Units (7.32-7.45); ABG PO2 125 mmHg (85-104); ABG TCO2 40 mEq/L (20-26); Blood Gas Modality ASSIST CONTROL; Blood Gas VT 450 cc
[2021-07-19] MEDS: Pantoprazole 40 MG VIAL IVP SCH ×2 (05:46→18:08)
[2021-07-19] MEDS: Budesonide/Formoterol 160/4.5 1 PUFF INH IH SCH ×2 (07:31→19:53)
[2021-07-19] MEDS: Multivit/Ca/Min/Fe/FA 1 TAB TABLET PO SCH (08:54)
[2021-07-19] MEDS: Lactobacillus 1 EACH CAP.SPRINK PO SCH ×2 (08:54→21:13)
[2021-07-19] MEDS: Gabapentin 400 MG CAPSULE PO SCH ×3 (08:54→21:12)
[2021-07-19] MEDS: predniSONE 20 MG TABLET PO SCH (08:55)
[2021-07-19] MEDS: Nicotine 21 MG PATCH.TD24 TD SCH (08:55)
[2021-07-19] MEDS: Aspirin 81 MG TAB.CHEW GTUBE SCH (08:55)
[2021-07-19] MEDS: Chlorhexidine Rinse 15 ML MOUTHWASH MM SCH ×2 (08:55→21:12)
[2021-07-19] MEDS: Norepinephrine 4 MG/254 ML IV.SOLN IVC SCH (08:56)
[2021-07-19] MEDS ORDERED: 0.9 % Sodium Chloride 250 ML IVC SCH (10:45)
[2021-07-19 11:44] LABS: ABG Base Excess 11 mEq/L (-2 to 3); ABG HCO3 34 mEq/L (21-27); ABG Oxygen Saturation 97 % (95-98); ABG PCO2 38 mmHg (35-45); ABG PH 7.56 pH Units (7.32-7.45); ABG PO2 75 mmHg (85-104); ABG TCO2 35 mEq/L (20-26); Blood Gas VT 450 cc
[2021-07-19] MEDS: metroNIDAZOLE 500 MG TABLET PO SCH ×2 (15:25→21:13)
[2021-07-19] MEDS: Vancomycin 1,250 MG/262.5 ML IV.SOLN IVPB SCH (16:39)
[2021-07-19] MEDS: *HR* Metoprolol 5 MG/5 ML VIAL IVP PRN (17:00)
[2021-07-19 18:44] LABS: Hemoglobin 7.4 g/dL (12.9-16.9)
[2021-07-19] MEDS: traZODone 50 MG TABLET PO SCH (21:12)
[2021-07-19] MEDS: QUEtiapine Fumarate 100 MG TABLET PO SCH (21:13)
[2021-07-20] MEDS: Norepinephrine 4 MG/254 ML IV.SOLN IVC SCH ×2 (01:47→10:48)
[2021-07-20] MEDS: Insulin LISPRO 300 UNITS/3 ML VIAL SUBQ SCH ×6 (01:48→20:34)
[2021-07-20] MEDS: Artificial Tears SOLN 15 ML BOTTLE BOTH EYES SCH ×3 (01:48→07:52)
[2021-07-20] MEDS: FentaNYL (PF) 1,000 MCG/100 ML IV.SOLN IVC SCH ×4 (02:03→20:54)
[2021-07-20 03:35] LABS: Eosinophils % 0.1 %; Platelet Count 135 K/mcL (140-400); Red Cell Distribution Width 20.1 % (11.5-14.5)
[2021-07-20 03:37] LABS: Hematocrit 25.2 % (37.5-50.1); Hemoglobin 7.3 g/dL (12.9-16.9); Immature Granulocytes % 0.5 % (0-4); Immature Platelets 11.8 % (1.1-6.1); Lymphocytes % 7.3 %; Mean Corpuscular Volume 82.9 fL (83.0-100.0); Red Blood Count 3.04 M/mcL (4.19-5.50); Segmented Neutrophils % 86.8 %; White Blood Count 13.1 K/mcL (4.3-11.1)
[2021-07-20 03:38] LABS: Monocytes # 0.7 K/mcL (0.0-1.3); Monocytes % 5.3 %; Neutrophils # 11.4 K/mcL (1.6-8.9)
[2021-07-20] MEDS: Ipratropium/Albuterol Neb 3 ML IH SCH ×6 (03:50→23:17)
[2021-07-20 03:56] LABS: BUN/Creatinine Ratio 63 (6-26); Blood Urea Nitrogen 72 mg/dL (8-23); Calcium 8.5 mg/dL (8.6-10.3); Carbon Dioxide 35 mEq/L (23-29); Chloride 104 mEq/L (98-107); Glucose 212 mg/dL (70-105); Osmolality,Calculated 323 (280-300); Potassium 4.7 mEq/L (3.5-5.1); Sodium 143 mEq/L (136-145); eGFR For African Americans > 60 (> 60); eGFR For Non-African Americans > 60 (> 60)
[2021-07-20 04:58] LABS: ABG Base Excess 9 mEq/L (-2 to 3); ABG HCO3 36 mEq/L (21-27); ABG Oxygen Saturation 94 % (95-98); ABG PCO2 62 mmHg (35-45); ABG PH 7.37 pH Units (7.32-7.45); ABG PO2 74 mmHg (85-104); ABG TCO2 38 mEq/L (20-26); Blood Gas Modality AF; Blood Gas VT 450 cc
[2021-07-20] MEDS: Pantoprazole 40 MG VIAL IVP SCH ×2 (05:05→17:45)
[2021-07-20] MEDS: Budesonide/Formoterol 160/4.5 1 PUFF INH IH SCH ×2 (07:58→19:44)
[2021-07-20] MEDS: Nicotine 21 MG PATCH.TD24 TD SCH (09:01)
[2021-07-20] MEDS: Chlorhexidine Rinse 15 ML MOUTHWASH MM SCH ×2 (09:01→20:04)
[2021-07-20] MEDS: Gabapentin 400 MG CAPSULE PO SCH ×3 (09:02→20:12)
[2021-07-20] MEDS: Aspirin 81 MG TAB.CHEW GTUBE SCH (09:02)
[2021-07-20] MEDS: Lactobacillus 1 EACH CAP.SPRINK PO SCH ×2 (09:02→20:12)
[2021-07-20] MEDS: metroNIDAZOLE 500 MG TABLET PO SCH ×3 (09:03→20:05)
[2021-07-20] MEDS: predniSONE 20 MG TABLET PO SCH (09:03)
[2021-07-20] MEDS: Lacri-Lube 3.5 GM TUBE BOTH EYES SCH ×2 (09:10→20:13)
[2021-07-20] MEDS: *HR* Heparin 5,000 UNIT/ML VIAL SQ SCH ×2 (14:21→20:04)
[2021-07-20 15:49] LABS: ABG Base Excess 7 mEq/L (-2 to 3); ABG HCO3 31 mEq/L (21-27); ABG Oxygen Saturation 88 % (95-98); ABG PCO2 42 mmHg (35-45); ABG PH 7.47 pH Units (7.32-7.45); ABG PO2 52 mmHg (85-104); ABG TCO2 32 mEq/L (20-26); Blood Gas Modality ASSIST CONTROL; Blood Gas VT 450 cc
[2021-07-20] MEDS ORDERED: *HR* Rocuronium Bromide 50 MG/5 ML VIAL IVP ONE (15:57)
[2021-07-20] MEDS: Vancomycin 1,250 MG/262.5 ML IV.SOLN IVPB SCH (16:35)
[2021-07-20] MEDS: QUEtiapine Fumarate 100 MG TABLET PO SCH (20:11)
[2021-07-20] MEDS: traZODone 50 MG TABLET PO SCH (20:12)
[2021-07-21] MEDS: Insulin LISPRO 300 UNITS/3 ML VIAL SUBQ SCH ×6 (00:48→19:33)
[2021-07-21] MEDS: FentaNYL (PF) 1,000 MCG/100 ML IV.SOLN IVC SCH ×4 (02:07→18:45)
[2021-07-21] MEDS: Ipratropium/Albuterol Neb 3 ML IH SCH ×5 (03:33→19:21)
[2021-07-21 04:30] LABS: Immature Granulocytes % 0.5 % (0-4)
[2021-07-21 04:32] LABS: Eosinophils % 0.3 %; Hematocrit 23.9 % (37.5-50.1); Hemoglobin 6.9 g/dL (12.9-16.9); Immature Platelets 11.2 % (1.1-6.1); Lymphocytes # 0.7 K/mcL (0.6-4.6); Lymphocytes % 6.6 %; Mean Corpuscular HGB Conc 28.9 g/dL (31.6-35.5); Mean Corpuscular Hemoglobin 23.7 pg (28.0-33.3); Mean Corpuscular Volume 82.1 fL (83.0-100.0); Monocytes # 0.5 K/mcL (0.0-1.3); Monocytes % 4.5 %; Neutrophils # 9.8 K/mcL (1.6-8.9); Platelet Count 118 K/mcL (140-400); Red Blood Count 2.91 M/mcL (4.19-5.50); Red Cell Distribution Width 20.4 % (11.5-14.5); Segmented Neutrophils % 88.1 %; White Blood Count 11.1 K/mcL (4.3-11.1)
[2021-07-21 04:45] LABS: ABG Base Excess 9 mEq/L (-2 to 3); ABG HCO3 34 mEq/L (21-27); ABG Oxygen Saturation 97 % (95-98); ABG PCO2 49 mmHg (35-45); ABG PH 7.45 pH Units (7.32-7.45); ABG PO2 87 mmHg (85-104); ABG TCO2 36 mEq/L (20-26); Blood Gas Modality AF; Blood Gas VT 450 cc
[2021-07-21 04:48] LABS: BUN/Creatinine Ratio 76 (6-26); Blood Urea Nitrogen 71 mg/dL (8-23); Calcium 8.4 mg/dL (8.6-10.3); Carbon Dioxide 34 mEq/L (23-29); Chloride 105 mEq/L (98-107); Glucose 175 mg/dL (70-105); Osmolality,Calculated 321 (280-300); Potassium 4.5 mEq/L (3.5-5.1); Sodium 143 mEq/L (136-145); eGFR For African Americans > 60 (> 60); eGFR For Non-African Americans > 60 (> 60)
[2021-07-21 04:58] LABS: Anisocytosis 2+ (Not Present); Platelet Estimate Normal (Normal)
[2021-07-21 04:59] LABS: Hypochromasia Present (Not Present)
[2021-07-21] MEDS: *HR* Heparin 5,000 UNIT/ML VIAL SQ SCH ×3 (05:46→21:09)
[2021-07-21] MEDS: Pantoprazole 40 MG VIAL IVP SCH ×2 (05:46→17:00)
[2021-07-21] MEDS: Budesonide/Formoterol 160/4.5 1 PUFF INH IH SCH ×2 (07:21→19:21)
[2021-07-21] MEDS: Lacri-Lube 3.5 GM TUBE BOTH EYES SCH ×2 (08:21→19:42)
[2021-07-21] MEDS: Chlorhexidine Rinse 15 ML MOUTHWASH MM SCH ×2 (08:21→19:39)
[2021-07-21] MEDS: Aspirin 81 MG TAB.CHEW GTUBE SCH (08:21)
[2021-07-21] MEDS: predniSONE 20 MG TABLET PO SCH (08:21)
[2021-07-21] MEDS: metroNIDAZOLE 500 MG TABLET PO SCH ×3 (08:21→19:41)
[2021-07-21] MEDS: Lactobacillus 1 EACH CAP.SPRINK PO SCH ×2 (08:21→19:39)
[2021-07-21] MEDS: Gabapentin 400 MG CAPSULE PO SCH ×3 (08:22→19:40)
[2021-07-21] MEDS: Nicotine 21 MG PATCH.TD24 TD SCH (08:22)
[2021-07-21] MEDS: Docusate Oral Soln 100 MG/10 ML UDC GTUBE SCH ×2 (11:31→19:39)
[2021-07-21] MEDS: traZODone 50 MG TABLET PO SCH (19:40)
[2021-07-21] MEDS: QUEtiapine Fumarate 100 MG TABLET PO SCH (19:41)
[2021-07-22] MEDS: Ipratropium/Albuterol Neb 3 ML IH SCH ×7 (00:11→23:34)
[2021-07-22] MEDS: Insulin LISPRO 300 UNITS/3 ML VIAL SUBQ SCH ×7 (00:46→23:57)
[2021-07-22] MEDS: FentaNYL (PF) 1,000 MCG/100 ML IV.SOLN IVC SCH ×4 (01:49→20:00)
[2021-07-22 03:50] LABS: Hemoglobin 7.2 g/dL (12.9-16.9)
[2021-07-22 03:52] LABS: Basophils % 0.1 %; Eosinophils # 0.1 K/mcL (0.0-0.6); Eosinophils % 0.8 %; Hematocrit 24.6 % (37.5-50.1); Immature Granulocytes % 0.3 % (0-4); Immature Platelets 13.3 % (1.1-6.1); Lymphocytes # 1.1 K/mcL (0.6-4.6); Lymphocytes % 8.8 %; Mean Corpuscular HGB Conc 29.3 g/dL (31.6-35.5); Mean Corpuscular Hemoglobin 23.7 pg (28.0-33.3); Mean Corpuscular Volume 80.9 fL (83.0-100.0); Monocytes # 0.6 K/mcL (0.0-1.3); Nucleated Red Blood Cells 0.2 /100 WBC (0); Platelet Count 125 K/mcL (140-400); Red Blood Count 3.04 M/mcL (4.19-5.50); Red Cell Distribution Width 21.2 % (11.5-14.5); White Blood Count 12.3 K/mcL (4.3-11.1)
[2021-07-22 04:08] LABS: Phosphorous 3.1 mg/dL (2.7-4.5)
[2021-07-22 04:09] LABS: BUN/Creatinine Ratio 82 (6-26); Blood Urea Nitrogen 70 mg/dL (8-23); Calcium 8.6 mg/dL (8.6-10.3); Carbon Dioxide 35 mEq/L (23-29); Chloride 104 mEq/L (98-107); Glucose 115 mg/dL (70-105); Osmolality,Calculated 315 (280-300); Potassium 4.3 mEq/L (3.5-5.1); Sodium 142 mEq/L (136-145); eGFR For African Americans > 60 (> 60); eGFR For Non-African Americans > 60 (> 60)
[2021-07-22 04:10] LABS: Neutrophils # 10.5 K/mcL (1.6-8.9)
[2021-07-22 04:11] LABS: ABG Base Excess 8 mEq/L (-2 to 3); ABG HCO3 32 mEq/L (21-27); ABG Oxygen Saturation 95 % (95-98); ABG PCO2 46 mmHg (35-45); ABG PH 7.46 pH Units (7.32-7.45); ABG PO2 71 mmHg (85-104); ABG TCO2 34 mEq/L (20-26); Blood Gas Modality ASSIST CONTROL; Blood Gas VT 450 cc
[2021-07-22] MEDS: Pantoprazole 40 MG VIAL IVP SCH ×2 (06:24→17:20)
[2021-07-22] MEDS: *HR* Heparin 5,000 UNIT/ML VIAL SQ SCH ×3 (06:25→22:14)
[2021-07-22] MEDS: Budesonide/Formoterol 160/4.5 1 PUFF INH IH SCH ×2 (07:50→19:52)
[2021-07-22] MEDS: Docusate Oral Soln 100 MG/10 ML UDC GTUBE SCH ×2 (08:53→20:01)
[2021-07-22] MEDS: Nicotine 21 MG PATCH.TD24 TD SCH (08:53)
[2021-07-22] MEDS: Chlorhexidine Rinse 15 ML MOUTHWASH MM SCH ×2 (08:53→20:01)
[2021-07-22] MEDS: Aspirin 81 MG TAB.CHEW GTUBE SCH (08:53)
[2021-07-22] MEDS: metroNIDAZOLE 500 MG TABLET PO SCH ×3 (08:54→20:01)
[2021-07-22] MEDS: Lactobacillus 1 EACH CAP.SPRINK PO SCH ×2 (08:54→20:01)
[2021-07-22] MEDS: predniSONE 20 MG TABLET PO SCH (08:54)
[2021-07-22] MEDS: Lacri-Lube 3.5 GM TUBE BOTH EYES SCH ×2 (08:54→20:02)
[2021-07-22] MEDS: Gabapentin 400 MG CAPSULE PO SCH ×3 (08:54→20:01)
[2021-07-22] MEDS: Norepinephrine 4 MG/254 ML IV.SOLN IVC SCH ×6 (12:12→23:36)
[2021-07-22] MEDS: Dexmedetomidine HCl 400 MCG/100 ML MLS IVC SCH ×3 (12:14→17:32)
[2021-07-22] MEDS: QUEtiapine Fumarate 100 MG TABLET PO SCH (20:01)
[2021-07-23] MEDS: FentaNYL (PF) 1,000 MCG/100 ML IV.SOLN IVC SCH ×5 (01:35→23:00)
[2021-07-23] MEDS: Ipratropium/Albuterol Neb 3 ML IH SCH ×6 (03:49→23:34)
[2021-07-23 04:20] LABS: ABG Base Excess 7 mEq/L (-2 to 3); ABG HCO3 32 mEq/L (21-27); ABG Oxygen Saturation 96 % (95-98); ABG PCO2 47 mmHg (35-45); ABG PH 7.45 pH Units (7.32-7.45); ABG PO2 77 mmHg (85-104); ABG TCO2 34 mEq/L (20-26); Blood Gas VT 450 cc
[2021-07-23] MEDS: Insulin LISPRO 300 UNITS/3 ML VIAL SUBQ SCH ×5 (04:27→20:31)
[2021-07-23 04:34] LABS: Basophils % 0.1 %; Mean Corpuscular Volume 82.2 fL (83.0-100.0); Red Blood Count 3.04 M/mcL (4.19-5.50)
[2021-07-23 04:36] LABS: Eosinophils # 0.2 K/mcL (0.0-0.6); Eosinophils % 1.2 %; Hemoglobin 7.3 g/dL (12.9-16.9); Immature Granulocytes % 0.6 % (0-4); Immature Platelets 14.8 % (1.1-6.1); Lymphocytes # 1.1 K/mcL (0.6-4.6); Lymphocytes % 7.2 %; Mean Corpuscular HGB Conc 29.2 g/dL (31.6-35.5); Monocytes # 0.6 K/mcL (0.0-1.3); Monocytes % 3.8 %; Neutrophils # 12.9 K/mcL (1.6-8.9); Platelet Count 123 K/mcL (140-400); Red Cell Distribution Width 21.5 % (11.5-14.5); Segmented Neutrophils % 87.1 %; White Blood Count 14.8 K/mcL (4.3-11.1)
[2021-07-23 05:06] LABS: BUN/Creatinine Ratio 94 (6-26); Blood Urea Nitrogen 65 mg/dL (8-23); Calcium 8.3 mg/dL (8.6-10.3); Carbon Dioxide 31 mEq/L (23-29); Chloride 107 mEq/L (98-107); Glucose 100 mg/dL (70-105); Hypochromasia Present (Not Present); Osmolality,Calculated 315 (280-300); Potassium 4.1 mEq/L (3.5-5.1); Sodium 143 mEq/L (136-145); eGFR For African Americans > 60 (> 60); eGFR For Non-African Americans > 60 (> 60)
[2021-07-23 05:07] LABS: Microcytosis Present (Not Present); Platelet Estimate Normal (Normal)
[2021-07-23] MEDS: Dexmedetomidine HCl 400 MCG/100 ML MLS IVC SCH (05:19)
[2021-07-23] MEDS: *HR* Heparin 5,000 UNIT/ML VIAL SQ SCH ×3 (05:24→20:32)
[2021-07-23] MEDS: Pantoprazole 40 MG VIAL IVP SCH (05:24)
[2021-07-23] MEDS: Budesonide/Formoterol 160/4.5 1 PUFF INH IH SCH ×2 (08:02→20:02)
[2021-07-23] MEDS: predniSONE 20 MG TABLET PO SCH (08:03)
[2021-07-23] MEDS: Gabapentin 400 MG CAPSULE PO SCH ×3 (08:03→20:31)
[2021-07-23] MEDS: Lactobacillus 1 EACH CAP.SPRINK PO SCH ×2 (08:03→20:31)
[2021-07-23] MEDS: metroNIDAZOLE 500 MG TABLET PO SCH ×3 (08:03→20:32)
[2021-07-23] MEDS: Nicotine 21 MG PATCH.TD24 TD SCH (08:03)
[2021-07-23] MEDS: Docusate Oral Soln 100 MG/10 ML UDC GTUBE SCH ×2 (08:03→20:32)
[2021-07-23] MEDS: Aspirin 81 MG TAB.CHEW GTUBE SCH (08:03)
[2021-07-23] MEDS: Chlorhexidine Rinse 15 ML MOUTHWASH MM SCH ×2 (08:04→20:31)
[2021-07-23] MEDS: Lacri-Lube 3.5 GM TUBE BOTH EYES SCH ×2 (08:04→20:31)
[2021-07-23 12:40] LABS: INR 1.2; Prothrombin Time 12.9 Seconds (9.4-12.1)
[2021-07-23] MEDS: Norepinephrine 4 MG/254 ML IV.SOLN IVC SCH (17:08)
[2021-07-23] MEDS: QUEtiapine Fumarate 100 MG TABLET PO SCH (20:31)
[2021-07-23] MEDS: traZODone 50 MG TABLET PO SCH (20:32)
[2021-07-23] MEDS ORDERED: Albumin 25% 25gram/100mL 25 GM/100 ML IV.SOLN IVPB ONE (20:42)
[2021-07-24] MEDS: Insulin LISPRO 300 UNITS/3 ML VIAL SUBQ SCH ×6 (00:23→21:11)
[2021-07-24] MEDS: Norepinephrine 4 MG/254 ML IV.SOLN IVC SCH ×3 (00:23→14:35)
[2021-07-24] MEDS: Dexmedetomidine HCl 400 MCG/100 ML MLS IVC SCH ×2 (00:23→14:38)
[2021-07-24 03:32] LABS: Basophils % 0.1 %
[2021-07-24 03:33] LABS: Eosinophils # 0.2 K/mcL (0.0-0.6); Eosinophils % 1.3 %; Hematocrit 24.2 % (37.5-50.1); Hemoglobin 6.8 g/dL (12.9-16.9); Immature Granulocytes % 0.6 % (0-4); Immature Platelets 11.8 % (1.1-6.1); Lymphocytes # 1.1 K/mcL (0.6-4.6); Lymphocytes % 7.8 %; Mean Corpuscular HGB Conc 28.1 g/dL (31.6-35.5); Mean Corpuscular Hemoglobin 23.3 pg (28.0-33.3); Mean Corpuscular Volume 82.9 fL (83.0-100.0); Monocytes # 0.5 K/mcL (0.0-1.3); Monocytes % 3.8 %; Neutrophils # 11.8 K/mcL (1.6-8.9); Platelet Count 127 K/mcL (140-400); Red Blood Count 2.92 M/mcL (4.19-5.50); Red Cell Distribution Width 21.4 % (11.5-14.5); Segmented Neutrophils % 86.4 %; White Blood Count 13.7 K/mcL (4.3-11.1)
[2021-07-24 03:35] LABS: VBG Ionized Calcium 1.18 mmol/L (1.15-1.35)
[2021-07-24 03:51] LABS: Alanine Aminotransferase 6 Units/L (7-52); Albumin 2.9 g/dL (3.5-5.7); Albumin/Globulin Ratio 1.3 (1.1-2.2); Alkaline Phosphatase 48 Units/L (34-104); Aspartate Amino Transferase 8 Units/L (13-39); BUN/Creatinine Ratio 82 (6-26); Bilirubin,Direct 0.2 mg/dL (0.0-0.2); Bilirubin,Indirect 0.3 mg/dL (0.0-1.0); Bilirubin,Total 0.5 mg/dL (0.3-1.0); Blood Urea Nitrogen 65 mg/dL (8-23); Calcium 8.8 mg/dL (8.6-10.3); Carbon Dioxide 33 mEq/L (23-29); Chloride 106 mEq/L (98-107); Globulin 2.3 g/dL (2.4-3.5); Glucose 125 mg/dL (70-105); Magnesium 1.8 mg/dL (1.6-2.6); Osmolality,Calculated 314 (280-300); Phosphorous 3.7 mg/dL (2.7-4.5); Potassium 4.3 mEq/L (3.5-5.1); Sodium 142 mEq/L (136-145); Total Protein 5.2 g/dL (6.4-8.9); eGFR For African Americans > 60 (> 60); eGFR For Non-African Americans > 60 (> 60)
[2021-07-24 04:02] LABS: Anisocytosis 2+ (Not Present); Hypochromasia Present (Not Present)
[2021-07-24 04:03] LABS: Platelet Estimate Slight Decrease (Normal)
[2021-07-24] MEDS: Ipratropium/Albuterol Neb 3 ML IH SCH ×6 (04:28→23:16)
[2021-07-24 04:36] LABS: ABG Base Excess 7 mEq/L (-2 to 3); ABG HCO3 32 mEq/L (21-27); ABG Oxygen Saturation 94 % (95-98); ABG PCO2 49 mmHg (35-45); ABG PH 7.42 pH Units (7.32-7.45); ABG PO2 70 mmHg (85-104); ABG TCO2 33 mEq/L (20-26); Blood Gas Modality ASSIST CONTROL; Blood Gas VT 450 cc
[2021-07-24] MEDS: FentaNYL (PF) 1,000 MCG/100 ML IV.SOLN IVC SCH ×5 (04:38→23:20)
[2021-07-24] MEDS: *HR* Heparin 5,000 UNIT/ML VIAL SQ SCH ×3 (04:40→21:11)
[2021-07-24] MEDS ORDERED: 0.9 % Sodium Chloride 250 ML IVC SCH (04:45)
[2021-07-24] MEDS: Vancomycin 1,250 MG/262.5 ML IV.SOLN IVPB SCH (07:12)
[2021-07-24] MEDS: Docusate Oral Soln 100 MG/10 ML UDC GTUBE SCH ×2 (07:15→20:08)
[2021-07-24] MEDS: Chlorhexidine Rinse 15 ML MOUTHWASH MM SCH ×2 (07:15→20:08)
[2021-07-24] MEDS: Nicotine 21 MG PATCH.TD24 TD SCH (07:15)
[2021-07-24] MEDS: metroNIDAZOLE 500 MG TABLET PO SCH ×3 (07:16→20:08)
[2021-07-24] MEDS: Gabapentin 400 MG CAPSULE PO SCH ×3 (07:16→20:09)
[2021-07-24] MEDS: Lactobacillus 1 EACH CAP.SPRINK PO SCH ×2 (07:16→20:08)
[2021-07-24] MEDS: Aspirin 81 MG TAB.CHEW GTUBE SCH (07:16)
[2021-07-24] MEDS: Lacri-Lube 3.5 GM TUBE BOTH EYES SCH ×2 (07:18→20:08)
[2021-07-24] MEDS: Budesonide/Formoterol 160/4.5 1 PUFF INH IH SCH ×2 (07:31→20:25)
[2021-07-24] MEDS ORDERED: predniSONE 20 MG TABLET PO SCH (09:00)
[2021-07-24] MEDS ORDERED: Iron Sucrose Complex 200 MG in 0.9 % Sodium Chloride 100 ML IVPB ONE (10:00)
[2021-07-24] MEDS ORDERED: *HR* Rocuronium Bromide 50 MG/5 ML VIAL IVP ONE (12:30)
[2021-07-24] MEDS ORDERED: Silver Nitrate Applicator 1 STICK..EA. TP ONE (12:30)
[2021-07-24] MEDS: QUEtiapine Fumarate 100 MG TABLET PO SCH (20:09)
[2021-07-24] MEDS: traZODone 50 MG TABLET PO SCH (20:09)
[2021-07-25] MEDS: Insulin LISPRO 300 UNITS/3 ML VIAL SUBQ SCH ×7 (00:05→23:56)
[2021-07-25 03:31] LABS: Lymphocytes % 5.7 %
[2021-07-25 03:33] LABS: Basophils % 0.1 %; Eosinophils # 0.1 K/mcL (0.0-0.6); Eosinophils % 0.7 %; Hematocrit 25.5 % (37.5-50.1); Hemoglobin 7.7 g/dL (12.9-16.9); Immature Granulocytes % 0.5 % (0-4); Immature Platelets 15.3 % (1.1-6.1); Lymphocytes # 0.5 K/mcL (0.6-4.6); Mean Corpuscular HGB Conc 30.2 g/dL (31.6-35.5); Mean Corpuscular Hemoglobin 25.4 pg (28.0-33.3); Mean Corpuscular Volume 84.2 fL (83.0-100.0); Monocytes # 0.3 K/mcL (0.0-1.3); Monocytes % 3.3 %; Neutrophils # 8.4 K/mcL (1.6-8.9); Platelet Count 105 K/mcL (140-400); Red Blood Count 3.03 M/mcL (4.19-5.50); Red Cell Distribution Width 20.3 % (11.5-14.5); Segmented Neutrophils % 89.7 %; White Blood Count 9.4 K/mcL (4.3-11.1)
[2021-07-25 03:51] LABS: Alanine Aminotransferase 5 Units/L (7-52); Albumin 2.6 g/dL (3.5-5.7); Albumin/Globulin Ratio 1.2 (1.1-2.2); Alkaline Phosphatase 44 Units/L (34-104); Aspartate Amino Transferase 8 Units/L (13-39); BUN/Creatinine Ratio 93 (6-26); Bilirubin,Direct 0.2 mg/dL (0.0-0.2); Bilirubin,Indirect 0.3 mg/dL (0.0-1.0); Bilirubin,Total 0.5 mg/dL (0.3-1.0); Blood Urea Nitrogen 52 mg/dL (8-23); Calcium 8.4 mg/dL (8.6-10.3); Carbon Dioxide 29 mEq/L (23-29); Chloride 107 mEq/L (98-107); Globulin 2.2 g/dL (2.4-3.5); Glucose 103 mg/dL (70-105); Magnesium 1.8 mg/dL (1.6-2.6); Osmolality,Calculated 306 (280-300); Phosphorous 4.2 mg/dL (2.7-4.5); Potassium 4.3 mEq/L (3.5-5.1); Sodium 141 mEq/L (136-145); Total Protein 4.8 g/dL (6.4-8.9); eGFR For African Americans > 60 (> 60); eGFR For Non-African Americans > 60 (> 60)
[2021-07-25] MEDS: Ipratropium/Albuterol Neb 3 ML IH SCH ×6 (04:16→23:58)
[2021-07-25 04:23] LABS: ABG Base Excess 6 mEq/L (-2 to 3); ABG HCO3 32 mEq/L (21-27); ABG Oxygen Saturation 92 % (95-98); ABG PCO2 53 mmHg (35-45); ABG PH 7.39 pH Units (7.32-7.45); ABG PO2 65 mmHg (85-104); ABG TCO2 33 mEq/L (20-26); Blood Gas Modality ASSIST CONTROL; Blood Gas VT 450 cc
[2021-07-25] MEDS: FentaNYL (PF) 1,000 MCG/100 ML IV.SOLN IVC SCH ×2 (04:41→09:41)
[2021-07-25] MEDS: *HR* Heparin 5,000 UNIT/ML VIAL SQ SCH ×3 (05:17→21:02)
[2021-07-25] MEDS: Norepinephrine 4 MG/254 ML IV.SOLN IVC SCH ×2 (07:24→21:02)
[2021-07-25] MEDS: Dexmedetomidine HCl 400 MCG/100 ML MLS IVC SCH ×2 (07:24→23:56)
[2021-07-25] MEDS: Lactobacillus 1 EACH CAP.SPRINK PO SCH ×2 (07:39→18:58)
[2021-07-25] MEDS: Budesonide/Formoterol 160/4.5 1 PUFF INH IH SCH ×2 (07:39→20:05)
[2021-07-25] MEDS: Aspirin 81 MG TAB.CHEW GTUBE SCH (07:39)
[2021-07-25] MEDS: Docusate Oral Soln 100 MG/10 ML UDC GTUBE SCH ×2 (07:39→18:58)
[2021-07-25] MEDS: metroNIDAZOLE 500 MG TABLET PO SCH (07:39)
[2021-07-25] MEDS: Gabapentin 400 MG CAPSULE PO SCH ×3 (07:40→18:59)
[2021-07-25] MEDS: predniSONE 10 MG TABLET PO SCH (07:42)
[2021-07-25] MEDS: Nicotine 21 MG PATCH.TD24 TD SCH (07:50)
[2021-07-25] MEDS: Chlorhexidine Rinse 15 ML MOUTHWASH MM SCH ×2 (07:50→20:07)
[2021-07-25] MEDS: Lacri-Lube 3.5 GM TUBE BOTH EYES SCH ×2 (07:51→20:07)
[2021-07-25] MEDS ORDERED: MethylPREDNISolone 40 MG/ML VIAL IVP ONE (08:30)
[2021-07-25] MEDS: MetroNIDAZOLE 500 MG/100 ML 500 MG/100 ML BAG IVPB SCH ×3 (08:44→23:56)
[2021-07-25] MEDS ORDERED: Pantoprazole 40 MG VIAL IVP ONE (09:00)
[2021-07-25] MEDS ORDERED: FentaNYL (PF) 1,000 MCG/100 ML IV.SOLN IVC SCH (11:00)
[2021-07-25] MEDS: FentaNYL (PF) 2,500 MCG/50 ML IV.SOLN IVC SCH ×2 (15:02→22:00)
[2021-07-25] MEDS: QUEtiapine Fumarate 100 MG TABLET PO SCH (18:59)
[2021-07-25] MEDS: traZODone 50 MG TABLET PO SCH (18:59)
[2021-07-26] MEDS: Ipratropium/Albuterol Neb 3 ML IH SCH ×5 (03:35→20:43)
[2021-07-26 04:05] LABS: Basophils % 0.1 %; Hematocrit 27.3 % (37.5-50.1); Mean Corpuscular Volume 85.8 fL (83.0-100.0); Red Blood Count 3.18 M/mcL (4.19-5.50)
[2021-07-26 04:07] LABS: Eosinophils # 0.1 K/mcL (0.0-0.6); Eosinophils % 1.1 %; Immature Granulocytes % 0.5 % (0-4); Immature Platelets 14.9 % (1.1-6.1); Lymphocytes # 0.8 K/mcL (0.6-4.6); Lymphocytes % 7.4 %; Mean Corpuscular HGB Conc 29.3 g/dL (31.6-35.5); Mean Corpuscular Hemoglobin 25.2 pg (28.0-33.3); Monocytes # 0.5 K/mcL (0.0-1.3); Monocytes % 4.5 %; Neutrophils # 9.4 K/mcL (1.6-8.9); Platelet Count 118 K/mcL (140-400); Red Cell Distribution Width 20.9 % (11.5-14.5); Segmented Neutrophils % 86.4 %; White Blood Count 10.9 K/mcL (4.3-11.1)
[2021-07-26 04:15] LABS: VBG Ionized Calcium 1.16 mmol/L (1.15-1.35)
[2021-07-26 04:32] LABS: Alanine Aminotransferase 5 Units/L (7-52); Albumin 2.5 g/dL (3.5-5.7); Alkaline Phosphatase 45 Units/L (34-104); Aspartate Amino Transferase 9 Units/L (13-39); BUN/Creatinine Ratio 75 (6-26); Bilirubin,Direct 0.2 mg/dL (0.0-0.2); Bilirubin,Indirect 0.5 mg/dL (0.0-1.0); Bilirubin,Total 0.7 mg/dL (0.3-1.0); Blood Urea Nitrogen 50 mg/dL (8-23); Calcium 8.4 mg/dL (8.6-10.3); Carbon Dioxide 27 mEq/L (23-29); Chloride 106 mEq/L (98-107); Globulin 2.6 g/dL (2.4-3.5); Glucose 114 mg/dL (70-105); Osmolality,Calculated 304 (280-300); Phosphorous 3.8 mg/dL (2.7-4.5); Sodium 140 mEq/L (136-145); Total Protein 5.1 g/dL (6.4-8.9); eGFR For African Americans > 60 (> 60); eGFR For Non-African Americans > 60 (> 60)
[2021-07-26] MEDS: Insulin LISPRO 300 UNITS/3 ML VIAL SUBQ SCH ×5 (04:33→20:36)
[2021-07-26 04:46] LABS: ABG Base Excess 4 mEq/L (-2 to 3); ABG HCO3 30 mEq/L (21-27); ABG Oxygen Saturation 95 % (95-98); ABG PCO2 52 mmHg (35-45); ABG PH 7.37 pH Units (7.32-7.45); ABG PO2 82 mmHg (85-104); ABG TCO2 32 mEq/L (20-26); Blood Gas Modality AF; Blood Gas VT 450 cc
[2021-07-26] MEDS: *HR* Heparin 5,000 UNIT/ML VIAL SQ SCH ×3 (05:07→20:35)
[2021-07-26] MEDS: Lactobacillus 1 EACH CAP.SPRINK PO SCH ×2 (07:14→20:34)
[2021-07-26] MEDS: Gabapentin 400 MG CAPSULE PO SCH ×3 (07:14→20:34)
[2021-07-26] MEDS: Aspirin 81 MG TAB.CHEW GTUBE SCH (07:14)
[2021-07-26] MEDS: Docusate Oral Soln 100 MG/10 ML UDC GTUBE SCH ×2 (07:14→20:35)
[2021-07-26] MEDS: predniSONE 10 MG TABLET PO SCH (07:15)
[2021-07-26] MEDS: Budesonide/Formoterol 160/4.5 1 PUFF INH IH SCH ×2 (07:49→20:43)
[2021-07-26] MEDS: Chlorhexidine Rinse 15 ML MOUTHWASH MM SCH ×2 (08:03→20:35)
[2021-07-26] MEDS: Nicotine 21 MG PATCH.TD24 TD SCH (08:03)
[2021-07-26] MEDS: Lacri-Lube 3.5 GM TUBE BOTH EYES SCH ×2 (08:04→20:36)
[2021-07-26] MEDS: MetroNIDAZOLE 500 MG/100 ML 500 MG/100 ML BAG IVPB SCH ×2 (08:59→17:12)
[2021-07-26] MEDS ORDERED: metroNIDAZOLE 500 MG TABLET GTUBE SCH (09:00)
[2021-07-26] MEDS ORDERED: MethylPREDNISolone 40 MG/ML VIAL IVP ONE (09:00)
[2021-07-26] MEDS: Norepinephrine 4 MG/254 ML IV.SOLN IVC SCH ×2 (09:26→20:37)
[2021-07-26] MEDS: FentaNYL (PF) 2,500 MCG/50 ML IV.SOLN IVC SCH (10:50)
[2021-07-26] MEDS: QUEtiapine Fumarate 100 MG TABLET PO SCH (20:34)
[2021-07-26] MEDS: traZODone 50 MG TABLET PO SCH (20:34)
[2021-07-26] MEDS: Dexmedetomidine HCl 400 MCG/100 ML MLS IVC SCH (20:37)
[2021-07-27] MEDS: Ipratropium/Albuterol Neb 3 ML IH SCH ×7 (00:36→23:50)
[2021-07-27] MEDS: MetroNIDAZOLE 500 MG/100 ML 500 MG/100 ML BAG IVPB SCH (00:38)
[2021-07-27] MEDS: Insulin LISPRO 300 UNITS/3 ML VIAL SUBQ SCH ×6 (00:47→21:17)
[2021-07-27 04:19] LABS: Basophils % 0.1 %; Hemoglobin 7.9 g/dL (12.9-16.9); Monocytes % 3.4 %; Red Cell Distribution Width 20.4 % (11.5-14.5)
[2021-07-27 04:21] LABS: Eosinophils # 0.1 K/mcL (0.0-0.6); Eosinophils % 1.2 %; Hematocrit 27.5 % (37.5-50.1); Immature Granulocytes % 0.4 % (0-4); Immature Platelets 16.1 % (1.1-6.1); Lymphocytes % 5.8 %; Mean Corpuscular HGB Conc 28.7 g/dL (31.6-35.5); Mean Corpuscular Hemoglobin 24.5 pg (28.0-33.3); Mean Corpuscular Volume 85.1 fL (83.0-100.0); Monocytes # 0.4 K/mcL (0.0-1.3); Neutrophils # 9.9 K/mcL (1.6-8.9); Platelet Count 124 K/mcL (140-400); Red Blood Count 3.23 M/mcL (4.19-5.50); Segmented Neutrophils % 89.1 %; White Blood Count 11.1 K/mcL (4.3-11.1)
[2021-07-27 04:23] LABS: Lymphocytes # 0.6 K/mcL (0.6-4.6)
[2021-07-27 04:33] LABS: VBG Ionized Calcium 1.26 mmol/L (1.15-1.35)
[2021-07-27 04:38] LABS: Alanine Aminotransferase 7 Units/L (7-52); Albumin 2.6 g/dL (3.5-5.7); Albumin/Globulin Ratio 0.9 (1.1-2.2); Alkaline Phosphatase 47 Units/L (34-104); Aspartate Amino Transferase 11 Units/L (13-39); BUN/Creatinine Ratio 77 (6-26); Bilirubin,Total 0.8 mg/dL (0.3-1.0); Blood Urea Nitrogen 54 mg/dL (8-23); Calcium 8.7 mg/dL (8.6-10.3); Carbon Dioxide 30 mEq/L (23-29); Chloride 106 mEq/L (98-107); Globulin 2.8 g/dL (2.4-3.5); Glucose 93 mg/dL (70-105); Magnesium 1.9 mg/dL (1.6-2.6); Osmolality,Calculated 308 (280-300); Potassium 4.2 mEq/L (3.5-5.1); Sodium 142 mEq/L (136-145); Total Protein 5.4 g/dL (6.4-8.9); eGFR For African Americans > 60 (> 60); eGFR For Non-African Americans > 60 (> 60)
[2021-07-27 04:45] LABS: ABG Base Excess 3 mEq/L (-2 to 3); ABG HCO3 29 mEq/L (21-27); ABG Oxygen Saturation 96 % (95-98); ABG PCO2 47 mmHg (35-45); ABG PH 7.39 pH Units (7.32-7.45); ABG PO2 82 mmHg (85-104); ABG TCO2 30 mEq/L (20-26); Blood Gas Modality ASSIST CONTROL; Blood Gas VT 450 cc
[2021-07-27 05:31] LABS: Hypochromasia Present (Not Present); Platelet Estimate Slight Decrease (Normal); Poikilocytosis 1+ (Not Present)
[2021-07-27] MEDS: *HR* Heparin 5,000 UNIT/ML VIAL SQ SCH ×3 (05:40→21:21)
[2021-07-27] MEDS: Chlorhexidine Rinse 15 ML MOUTHWASH MM SCH ×2 (07:53→21:18)
[2021-07-27] MEDS: Nicotine 21 MG PATCH.TD24 TD SCH (07:53)
[2021-07-27] MEDS: Docusate Oral Soln 100 MG/10 ML UDC GTUBE SCH ×2 (07:53→21:18)
[2021-07-27] MEDS: Lactobacillus 1 EACH CAP.SPRINK PO SCH ×2 (07:54→21:18)
[2021-07-27] MEDS: metroNIDAZOLE 500 MG TABLET GTUBE SCH ×3 (07:54→21:19)
[2021-07-27] MEDS: predniSONE 10 MG TABLET PO SCH (07:54)
[2021-07-27] MEDS: Gabapentin 400 MG CAPSULE PO SCH ×3 (07:55→21:20)
[2021-07-27] MEDS: Aspirin 81 MG TAB.CHEW GTUBE SCH (07:55)
[2021-07-27] MEDS: Norepinephrine 4 MG/254 ML IV.SOLN IVC SCH (08:01)
[2021-07-27] MEDS: Budesonide/Formoterol 160/4.5 1 PUFF INH IH SCH ×2 (08:11→20:04)
[2021-07-27] MEDS: Lacri-Lube 3.5 GM TUBE BOTH EYES SCH ×2 (08:41→21:45)
[2021-07-27] MEDS: Dexmedetomidine HCl 400 MCG/100 ML MLS IVC SCH (14:39)
[2021-07-27] MEDS ORDERED: *HR* Promethazine 25 MG/ML VIAL IM PRN (16:08)
[2021-07-27] MEDS ORDERED: *HR* Dextrose 50 % in Water (Syg) 50 ML SYRINGE IVP PRN (16:08)
[2021-07-27] MEDS ORDERED: D5% in Water 1,000 ML IVC PRN (16:08)
[2021-07-27] MEDS ORDERED: Naloxone 0.4 MG/ML INJ IVP PRN (16:08)
[2021-07-27] MEDS ORDERED: Acetaminophen 325 MG TABLET PO PRN (16:08)
[2021-07-27] MEDS ORDERED: Dextrose 4 GM Chewable Tablets PO PRN ×2 (16:08)
[2021-07-27] MEDS: QUEtiapine Fumarate 100 MG TABLET PO SCH (21:21)
[2021-07-27] MEDS: traZODone 50 MG TABLET PO SCH (21:21)
[2021-07-28] MEDS: Insulin LISPRO 300 UNITS/3 ML VIAL SUBQ SCH ×6 (00:11→21:48)
[2021-07-28] MEDS: Ipratropium/Albuterol Neb 3 ML IH SCH ×6 (04:15→23:54)
[2021-07-28 05:03] LABS: Basophils % 0.1 %; Hemoglobin 7.6 g/dL (12.9-16.9); Red Cell Distribution Width 21.2 % (11.5-14.5)
[2021-07-28 05:05] LABS: Eosinophils # 0.1 K/mcL (0.0-0.6); Eosinophils % 0.6 %; Hematocrit 27.2 % (37.5-50.1); Immature Granulocytes % 0.7 % (0-4); Lymphocytes # 0.8 K/mcL (0.6-4.6); Lymphocytes % 5.9 %; Mean Corpuscular HGB Conc 27.9 g/dL (31.6-35.5); Mean Corpuscular Hemoglobin 24.4 pg (28.0-33.3); Mean Corpuscular Volume 87.5 fL (83.0-100.0); Monocytes # 0.5 K/mcL (0.0-1.3); Monocytes % 3.7 %; Neutrophils # 12.2 K/mcL (1.6-8.9); Platelet Count 143 K/mcL (140-400); Red Blood Count 3.11 M/mcL (4.19-5.50); White Blood Count 13.7 K/mcL (4.3-11.1)
[2021-07-28 05:12] LABS: Alanine Aminotransferase 7 Units/L (7-52); Albumin 2.8 g/dL (3.5-5.7); Alkaline Phosphatase 48 Units/L (34-104); Aspartate Amino Transferase 10 Units/L (13-39); BUN/Creatinine Ratio 89 (6-26); Blood Urea Nitrogen 68 mg/dL (8-23); Calcium 8.9 mg/dL (8.6-10.3); Carbon Dioxide 28 mEq/L (23-29); Chloride 110 mEq/L (98-107); Glucose 111 mg/dL (70-105); Osmolality,Calculated 320 (280-300); Phosphorous 4.4 mg/dL (2.7-4.5); Potassium 4.1 mEq/L (3.5-5.1); Sodium 145 mEq/L (136-145); Total Protein 5.7 g/dL (6.4-8.9); eGFR For African Americans > 60 (> 60); eGFR For Non-African Americans > 60 (> 60)
[2021-07-28 05:13] LABS: Globulin 2.9 g/dL (2.4-3.5)
[2021-07-28 05:39] LABS: Anisocytosis 2+ (Not Present); Platelet Estimate Normal (Normal); Poikilocytosis 1+ (Not Present); Target Cells 1+ (Not Present)
[2021-07-28] MEDS: *HR* Heparin 5,000 UNIT/ML VIAL SQ SCH ×3 (05:51→21:59)
[2021-07-28] MEDS: Budesonide/Formoterol 160/4.5 1 PUFF INH IH SCH ×2 (07:37→20:59)
[2021-07-28] MEDS: *HR* Metoprolol 5 MG/5 ML VIAL IVP PRN (08:52)
[2021-07-28] MEDS: Nicotine 21 MG PATCH.TD24 TD SCH (09:47)
[2021-07-28] MEDS: Lactobacillus 1 EACH CAP.SPRINK PO SCH ×3 (09:48→22:38)
[2021-07-28] MEDS: metroNIDAZOLE 500 MG TABLET GTUBE SCH ×3 (09:48→20:40)
[2021-07-28] MEDS: Aspirin 81 MG TAB.CHEW GTUBE SCH (09:48)
[2021-07-28] MEDS: Docusate Oral Soln 100 MG/10 ML UDC GTUBE SCH ×3 (09:48→22:37)
[2021-07-28] MEDS: Chlorhexidine Rinse 15 ML MOUTHWASH MM SCH ×2 (09:48→21:59)
[2021-07-28] MEDS: Gabapentin 400 MG CAPSULE PO SCH ×3 (09:49→20:41)
[2021-07-28] MEDS: Lacri-Lube 3.5 GM TUBE BOTH EYES SCH ×2 (09:49→22:03)
[2021-07-28] MEDS: predniSONE 5 MG TABLET PO SCH (09:49)
[2021-07-28] MEDS: *HR* LORazepam 2 MG/ML VIAL IVP PRN (10:41)
[2021-07-28] MEDS ORDERED: Isovue-370 500 ML BOTTLE IVP ONE (11:01)
[2021-07-28] MEDS: QUEtiapine Fumarate 100 MG TABLET PO SCH (20:41)
[2021-07-28] MEDS: traZODone 50 MG TABLET PO SCH (20:41)
[2021-07-29] MEDS: *HR* LORazepam 2 MG/ML VIAL IVP PRN ×3 (00:12→17:16)
[2021-07-29] MEDS: Insulin LISPRO 300 UNITS/3 ML VIAL SUBQ SCH ×6 (00:43→20:32)
[2021-07-29 03:27] LABS: Eosinophils % 1.7 %; Hemoglobin 7.8 g/dL (12.9-16.9); Immature Granulocytes % 0.3 % (0-4)
[2021-07-29 03:29] LABS: Basophils % 0.2 %; Eosinophils # 0.2 K/mcL (0.0-0.6); Hematocrit 27.8 % (37.5-50.1); Immature Platelets 12.2 % (1.1-6.1); Lymphocytes # 0.6 K/mcL (0.6-4.6); Lymphocytes % 4.6 %; Mean Corpuscular HGB Conc 28.1 g/dL (31.6-35.5); Mean Corpuscular Hemoglobin 24.2 pg (28.0-33.3); Mean Corpuscular Volume 86.3 fL (83.0-100.0); Monocytes # 0.6 K/mcL (0.0-1.3); Monocytes % 4.4 %; Neutrophils # 11.3 K/mcL (1.6-8.9); Platelet Count 144 K/mcL (140-400); Red Blood Count 3.22 M/mcL (4.19-5.50); Red Cell Distribution Width 21.5 % (11.5-14.5); Segmented Neutrophils % 88.8 %; White Blood Count 12.7 K/mcL (4.3-11.1)
[2021-07-29 03:29] LABS: VBG Ionized Calcium 1.25 mmol/L (1.15-1.35)
[2021-07-29 03:46] LABS: Alanine Aminotransferase 7 Units/L (7-52); Albumin 2.8 g/dL (3.5-5.7); Albumin/Globulin Ratio 0.9 (1.1-2.2); Alkaline Phosphatase 56 Units/L (34-104); Aspartate Amino Transferase 14 Units/L (13-39); BUN/Creatinine Ratio 86 (6-26); Bilirubin,Total 0.9 mg/dL (0.3-1.0); Blood Urea Nitrogen 57 mg/dL (8-23); Calcium 9.3 mg/dL (8.6-10.3); Carbon Dioxide 30 mEq/L (23-29); Chloride 111 mEq/L (98-107); Glucose 111 mg/dL (70-105); Magnesium 1.9 mg/dL (1.6-2.6); Osmolality,Calculated 321 (280-300); Phosphorous 2.9 mg/dL (2.7-4.5); Potassium 3.6 mEq/L (3.5-5.1); Sodium 147 mEq/L (136-145); Total Protein 5.8 g/dL (6.4-8.9); eGFR For African Americans > 60 (> 60); eGFR For Non-African Americans > 60 (> 60)
[2021-07-29 04:02] LABS: Anisocytosis 2+ (Not Present); Hypochromasia Present (Not Present); Platelet Estimate Normal (Normal); Polychromasia 1+ (Not Present)
[2021-07-29] MEDS: Ipratropium/Albuterol Neb 3 ML IH SCH ×6 (04:09→23:16)
[2021-07-29] MEDS: *HR* Metoprolol 5 MG/5 ML VIAL IVP PRN (05:06)
[2021-07-29] MEDS: *HR* Heparin 5,000 UNIT/ML VIAL SQ SCH ×3 (05:06→20:39)
[2021-07-29] MEDS: Budesonide/Formoterol 160/4.5 1 PUFF INH IH SCH ×2 (07:28→19:43)
[2021-07-29] MEDS: Gabapentin 400 MG CAPSULE PO SCH ×3 (07:40→20:40)
[2021-07-29] MEDS: predniSONE 5 MG TABLET PO SCH (07:40)
[2021-07-29] MEDS: Docusate Oral Soln 100 MG/10 ML UDC GTUBE SCH ×2 (07:40→20:40)
[2021-07-29] MEDS: Nicotine 21 MG PATCH.TD24 TD SCH (07:40)
[2021-07-29] MEDS: Aspirin 81 MG TAB.CHEW GTUBE SCH (07:41)
[2021-07-29] MEDS: Chlorhexidine Rinse 15 ML MOUTHWASH MM SCH ×2 (07:41→20:41)
[2021-07-29] MEDS: metroNIDAZOLE 500 MG TABLET GTUBE SCH ×3 (07:41→20:40)
[2021-07-29] MEDS: Lactobacillus 1 EACH CAP.SPRINK PO SCH ×2 (07:41→20:41)
[2021-07-29] MEDS: Lacri-Lube 3.5 GM TUBE BOTH EYES SCH ×2 (07:44→20:41)
[2021-07-29] MEDS: Furosemide 40 MG TABLET PO SCH (07:51)
[2021-07-29] MEDS: QUEtiapine Fumarate 100 MG TABLET PO SCH (20:40)
[2021-07-29] MEDS: traZODone 50 MG TABLET PO SCH (20:41)
[2021-07-30] MEDS: Insulin LISPRO 300 UNITS/3 ML VIAL SUBQ SCH ×6 (00:13→21:28)
[2021-07-30 00:17] LABS: Basophils % 0.1 %; Eosinophils # 0.1 K/mcL (0.0-0.6); Eosinophils % 1.6 %; Hemoglobin 7.2 g/dL (12.9-16.9); Immature Granulocytes % 0.4 % (0-4); Immature Platelets 6.1 % (1.1-6.1); Lymphocytes # 0.5 K/mcL (0.6-4.6); Lymphocytes % 6.6 %; Mean Corpuscular HGB Conc 27.7 g/dL (31.6-35.5); Mean Corpuscular Hemoglobin 24.6 pg (28.0-33.3); Mean Corpuscular Volume 88.7 fL (83.0-100.0); Monocytes # 0.4 K/mcL (0.0-1.3); Monocytes % 4.4 %; Neutrophils # 7.1 K/mcL (1.6-8.9); Platelet Count 144 K/mcL (140-400); Red Blood Count 2.93 M/mcL (4.19-5.50); Red Cell Distribution Width 21.5 % (11.5-14.5); Segmented Neutrophils % 86.9 %; White Blood Count 8.2 K/mcL (4.3-11.1)
[2021-07-30 01:01] LABS: Anisocytosis 1+ (Not Present); Hypochromasia Present (Not Present); Platelet Estimate Normal (Normal)
[2021-07-30] MEDS: Ipratropium/Albuterol Neb 3 ML IH SCH ×5 (03:35→20:05)
[2021-07-30] MEDS: *HR* LORazepam 2 MG/ML VIAL IVP PRN (04:34)
[2021-07-30 05:02] LABS: VBG Ionized Calcium 1.28 mmol/L (1.15-1.35)
[2021-07-30 05:16] LABS: Alanine Aminotransferase 7 Units/L (7-52); Albumin 2.5 g/dL (3.5-5.7); Albumin/Globulin Ratio 0.9 (1.1-2.2); Alkaline Phosphatase 50 Units/L (34-104); Aspartate Amino Transferase 14 Units/L (13-39); BUN/Creatinine Ratio 82 (6-26); Bilirubin,Total 1.1 mg/dL (0.3-1.0); Blood Urea Nitrogen 46 mg/dL (8-23); Carbon Dioxide 30 mEq/L (23-29); Chloride 112 mEq/L (98-107); Globulin 2.8 g/dL (2.4-3.5); Glucose 145 mg/dL (70-105); Magnesium 1.7 mg/dL (1.6-2.6); Osmolality,Calculated 320 (280-300); Phosphorous 2.4 mg/dL (2.7-4.5); Potassium 3.4 mEq/L (3.5-5.1); Sodium 148 mEq/L (136-145); Total Protein 5.3 g/dL (6.4-8.9); eGFR For African Americans > 60 (> 60); eGFR For Non-African Americans > 60 (> 60)
[2021-07-30] MEDS: *HR* Heparin 5,000 UNIT/ML VIAL SQ SCH ×2 (06:27→18:22)
[2021-07-30] MEDS: Budesonide/Formoterol 160/4.5 1 PUFF INH IH SCH ×2 (07:37→20:05)
[2021-07-30] MEDS: Gabapentin 400 MG CAPSULE PO SCH ×3 (07:58→21:28)
[2021-07-30] MEDS: predniSONE 5 MG TABLET PO SCH (07:58)
[2021-07-30] MEDS: Chlorhexidine Rinse 15 ML MOUTHWASH MM SCH ×2 (07:58→21:29)
[2021-07-30] MEDS: Docusate Oral Soln 100 MG/10 ML UDC GTUBE SCH ×2 (07:58→21:29)
[2021-07-30] MEDS: Aspirin 81 MG TAB.CHEW GTUBE SCH (07:58)
[2021-07-30] MEDS: Lacri-Lube 3.5 GM TUBE BOTH EYES SCH ×2 (07:59→21:29)
[2021-07-30] MEDS: Lactobacillus 1 EACH CAP.SPRINK PO SCH ×2 (07:59→21:28)
[2021-07-30] MEDS: Furosemide 40 MG TABLET PO SCH (07:59)
[2021-07-30] MEDS: metroNIDAZOLE 500 MG TABLET GTUBE SCH (07:59)
[2021-07-30] MEDS: Nicotine 21 MG PATCH.TD24 TD SCH (07:59)
[2021-07-30] MEDS ORDERED: Potassium Phosphate 44 MEQ in 0.9 % Sodium Chloride 250 ML IVPB ONE (08:03)
[2021-07-30] MEDS: D5% in Water 1,000 ML IVC SCH (08:03)
[2021-07-30 09:40] LABS: ABG Base Excess 7 mEq/L (-2 to 3); ABG HCO3 33 mEq/L (21-27); ABG Oxygen Saturation 90 % (95-98); ABG PCO2 59 mmHg (35-45); ABG PH 7.36 pH Units (7.32-7.45); ABG PO2 63 mmHg (85-104); ABG TCO2 35 mEq/L (20-26); Blood Gas VT 450 cc
[2021-07-30] MEDS: Piperacillin/Tazobactam 3.375 GM in 0.9 % Sodium Chloride Mini Bag 100 ML IVPB SCH (18:22)
[2021-07-30] MEDS: QUEtiapine Fumarate 100 MG TABLET PO SCH (21:29)
[2021-07-30] MEDS: traZODone 50 MG TABLET PO SCH (21:29)
[2021-07-31] MEDS: *HR* Heparin 5,000 UNIT/ML VIAL SQ SCH ×4 (00:14→20:25)
[2021-07-31] MEDS: Ipratropium/Albuterol Neb 3 ML IH SCH ×7 (00:24→23:44)
[2021-07-31] MEDS: Piperacillin/Tazobactam 3.375 GM in 0.9 % Sodium Chloride Mini Bag 100 ML IVPB SCH ×3 (00:41→15:10)
[2021-07-31] MEDS: Insulin LISPRO 300 UNITS/3 ML VIAL SUBQ SCH ×6 (00:41→20:21)
[2021-07-31] MEDS: *HR* LORazepam 2 MG/ML VIAL IVP PRN (01:09)
[2021-07-31] MEDS: D5% in Water 1,000 ML IVC SCH (04:55)
[2021-07-31] MEDS: Budesonide/Formoterol 160/4.5 1 PUFF INH IH SCH ×2 (07:30→20:17)
[2021-07-31] MEDS: Lactobacillus 1 EACH CAP.SPRINK PO SCH ×2 (08:54→20:23)
[2021-07-31] MEDS: Gabapentin 400 MG CAPSULE PO SCH ×3 (08:55→20:23)
[2021-07-31] MEDS: Aspirin 81 MG TAB.CHEW GTUBE SCH (08:55)
[2021-07-31] MEDS: Furosemide 40 MG TABLET PO SCH (08:56)
[2021-07-31] MEDS: predniSONE 5 MG TABLET PO SCH (08:56)
[2021-07-31] MEDS: Docusate Oral Soln 100 MG/10 ML UDC GTUBE SCH ×2 (08:56→20:22)
[2021-07-31] MEDS: Nicotine 21 MG PATCH.TD24 TD SCH (08:57)
[2021-07-31] MEDS: Chlorhexidine Rinse 15 ML MOUTHWASH MM SCH ×2 (08:57→20:22)
[2021-07-31] MEDS: Lacri-Lube 3.5 GM TUBE BOTH EYES SCH ×2 (09:15→20:45)
[2021-07-31] MEDS: Albumin Human 5% 12.5 GM/250 ML IV.SOLN IVC SCH ×2 (10:48→15:09)
[2021-07-31 16:41] LABS: Eosinophils % 2.1 %; Immature Granulocytes % 0.4 % (0-4)
[2021-07-31 16:43] LABS: Hematocrit 23.2 % (37.5-50.1); Immature Platelets 11.9 % (1.1-6.1); Lymphocytes % 6.4 %
[2021-07-31 16:54] LABS: Alanine Aminotransferase 6 Units/L (7-52); Albumin 2.5 g/dL (3.5-5.7); Alkaline Phosphatase 54 Units/L (34-104); Aspartate Amino Transferase 10 Units/L (13-39); BUN/Creatinine Ratio 58 (6-26); Bilirubin,Total 0.9 mg/dL (0.3-1.0); Blood Urea Nitrogen 35 mg/dL (8-23); Calcium 8.5 mg/dL (8.6-10.3); Carbon Dioxide 36 mEq/L (23-29); Chloride 110 mEq/L (98-107); Globulin 2.6 g/dL (2.4-3.5); Glucose 232 mg/dL (70-105); Osmolality,Calculated 325 (280-300); Potassium 3.8 mEq/L (3.5-5.1); Sodium 150 mEq/L (136-145); Total Protein 5.1 g/dL (6.4-8.9); eGFR For African Americans > 60 (> 60); eGFR For Non-African Americans > 60 (> 60)
[2021-07-31 16:56] LABS: Basophils % 0.1 %; Eosinophils # 0.2 K/mcL (0.0-0.6); Lymphocytes # 0.7 K/mcL (0.6-4.6); Mean Corpuscular HGB Conc 28.4 g/dL (31.6-35.5); Mean Corpuscular Hemoglobin 24.9 pg (28.0-33.3); Mean Corpuscular Volume 87.5 fL (83.0-100.0); Monocytes # 0.5 K/mcL (0.0-1.3); Monocytes % 4.6 %; Neutrophils # 9.8 K/mcL (1.6-8.9); Platelet Count 133 K/mcL (140-400); Red Blood Count 2.65 M/mcL (4.19-5.50); Red Cell Distribution Width 22.4 % (11.5-14.5); Segmented Neutrophils % 86.4 %; White Blood Count 11.3 K/mcL (4.3-11.1)
[2021-07-31 16:57] LABS: Hemoglobin 6.6 g/dL (12.9-16.9)
[2021-07-31 17:24] LABS: Anisocytosis 1+ (Not Present)
[2021-07-31 17:25] LABS: Hypochromasia Present (Not Present); Platelet Estimate Slight Decrease (Normal)
[2021-07-31] MEDS: traZODone 50 MG TABLET PO SCH (20:22)
[2021-07-31] MEDS: QUEtiapine Fumarate 100 MG TABLET PO SCH (20:22)
[2021-08-01] MEDS: Insulin LISPRO 300 UNITS/3 ML VIAL SUBQ SCH ×4 (01:13→12:03)
[2021-08-01] MEDS: Piperacillin/Tazobactam 3.375 GM in 0.9 % Sodium Chloride Mini Bag 100 ML IVPB SCH ×2 (01:14→07:58)
[2021-08-01] MEDS: D5% in Water 1,000 ML IVC SCH (01:46)
[2021-08-01] MEDS: Ipratropium/Albuterol Neb 3 ML IH SCH ×3 (03:45→11:11)
[2021-08-01] MEDS: *HR* Heparin 5,000 UNIT/ML VIAL SQ SCH (05:26)
[2021-08-01 06:55] LABS: Immature Granulocytes % 0.4 % (0-4)
[2021-08-01 06:57] LABS: Eosinophils # 0.3 K/mcL (0.0-0.6); Eosinophils % 3.1 %; Hematocrit 20.4 % (37.5-50.1); Immature Platelets 12.9 % (1.1-6.1); Lymphocytes # 0.9 K/mcL (0.6-4.6); Lymphocytes % 10.2 %; Mean Corpuscular HGB Conc 28.9 g/dL (31.6-35.5); Mean Corpuscular Hemoglobin 25.4 pg (28.0-33.3); Mean Corpuscular Volume 87.9 fL (83.0-100.0); Monocytes # 0.4 K/mcL (0.0-1.3); Monocytes % 4.4 %; Neutrophils # 7.5 K/mcL (1.6-8.9); Platelet Count 110 K/mcL (140-400); Red Blood Count 2.32 M/mcL (4.19-5.50); Red Cell Distribution Width 22.5 % (11.5-14.5); Segmented Neutrophils % 81.9 %; White Blood Count 9.2 K/mcL (4.3-11.1)
[2021-08-01 07:04] LABS: Hemoglobin 5.9 g/dL (12.9-16.9)
[2021-08-01 07:07] VITALS: TEMP 101.2
[2021-08-01 07:10] LABS: Alanine Aminotransferase 6 Units/L (7-52); Albumin 2.4 g/dL (3.5-5.7); Alkaline Phosphatase 47 Units/L (34-104); Aspartate Amino Transferase 10 Units/L (13-39); BUN/Creatinine Ratio 59 (6-26); Bilirubin,Total 0.8 mg/dL (0.3-1.0); Blood Urea Nitrogen 34 mg/dL (8-23); Calcium 7.8 mg/dL (8.6-10.3); Carbon Dioxide 33 mEq/L (23-29); Chloride 107 mEq/L (98-107); Globulin 2.4 g/dL (2.4-3.5); Glucose 286 mg/dL (70-105); Magnesium 1.3 mg/dL (1.6-2.6); Osmolality,Calculated 316 (280-300); Potassium 3.7 mEq/L (3.5-5.1); Sodium 144 mEq/L (136-145); Total Protein 4.8 g/dL (6.4-8.9); eGFR For African Americans > 60 (> 60); eGFR For Non-African Americans > 60 (> 60)
[2021-08-01] MEDS: Budesonide/Formoterol 160/4.5 1 PUFF INH IH SCH (07:37)
[2021-08-01 07:39] VITALS: BP 123/71; O2SAT 91
[2021-08-01] MEDS: Gabapentin 400 MG CAPSULE PO SCH (07:57)
[2021-08-01] MEDS: Aspirin 81 MG TAB.CHEW GTUBE SCH (07:57)
[2021-08-01] MEDS: predniSONE 5 MG TABLET PO SCH (07:57)
[2021-08-01] MEDS: Lactobacillus 1 EACH CAP.SPRINK PO SCH (07:57)
[2021-08-01] MEDS: Furosemide 40 MG TABLET PO SCH (07:58)
[2021-08-01] MEDS: Chlorhexidine Rinse 15 ML MOUTHWASH MM SCH (07:58)
[2021-08-01] MEDS: Docusate Oral Soln 100 MG/10 ML UDC GTUBE SCH (07:58)
[2021-08-01] MEDS: Lacri-Lube 3.5 GM TUBE BOTH EYES SCH (07:59)
[2021-08-01 08:00] LABS: Anisocytosis 1+ (Not Present); Hypochromasia Present (Not Present); Platelet Estimate Slight Decrease (Normal)
[2021-08-01] MEDS: *HR* Metoprolol 5 MG/5 ML VIAL IVP PRN (08:09)
[2021-08-01] MEDS: Nicotine 21 MG PATCH.TD24 TD SCH (08:49)
[2021-08-01 08:56] VITALS: PULSE 108
[2021-08-01] MEDS ORDERED: Fluconazole 400 MG/200 ML 400 MG/200 ML BAG IVPB SCH (09:00)
[2021-08-01] MEDS ORDERED: Morphine Sulfate 2 MG/ML SYRINGE IVP PRN (11:41)
== END 2021-08-01 16:07 | disposition expired | DRG 3 ==
LOC: 2NENU 23:24 → EMEROOARM 23:24 → SUATTDRO 07-05 02:07 → 2NENU 07-05 02:45 → SUATTDRO 07-05 05:44 → ICNU 07-14 19:11 → 2NNU 07-27 17:59
PROVIDERS: ADMIT Internal Medicine; ATTEND Internal Medicine
PROC: ENDOBRF (2021-07-24 17:45)